=== PATIENT | female | born 1960 | race Caucasian/White ===

== ENCOUNTER → 2017-05-31 07:37 | Outpatient (CLI) | payer BC, SELFPAY ==
--- NOTE | 2017-05-31 06:41 | HPBI_ITS ---
MAMMOGRAPHY - BILATERAL SCREENING REASON FOR EXAM: Female, 57 years old. Routine annual screening examination. PERTINENT HISTORY: Non-contributory. TECHNIQUE: Digital bilateral breast lyudmila (3D mammographic acquisition) in the CC and MLO projections. 2-D mediolateral oblique (MLO) and craniocaudad (CC) views of both breasts were obtained. CAD: Full Field Digital Mammography with Computer Added Detection was performed. COMPARISON: Comparison is made with prior study dated May 15, 2016 and April 08, 2015. FINDINGS: Breast Composition: There are scattered areas of fibroglandular density. There are no dominant masses or suspicious calcifications. Stable bilateral benign-appearing axillary lymph nodes. No other significant abnormalities are identified. There has been no significant change since the prior study. HPBI/SCREENING MAMM (CAD), BILAT IMPRESSION: Stable bilateral screening mammogram. Yearly follow-up mammogram recommended. (A) ASSESSMENT CATEGORY: BIRADS Category 2: Benign. A letter regarding these results will be sent to the patient by the facility within 30 days. Approximately 10% of breast cancers are not detected by mammography. A normal mammogram should not delay biopsy of a clinically suspicious abnormality. [id number] Electronically Signed: Zafar Abernathy MD at 8:48 EST Tel [phone], Service support ,
== END ==
PROVIDERS: Family Provider Family Medicine; PCP Family Medicine; Visit Provider Obstetrics & Gynecology
DX: Z12.31 Encounter for screening mammogram for malignant neoplasm of breast (principal)
CPT/HCPCS: 77063; 77067

== ENCOUNTER → 2017-06-02 11:44 | Outpatient (CLI) | payer BC, SELFPAY ==
[2017-06-02 12:19] LABS: Hematocrit 40.7 % (37-47); Hemoglobin 12.3 g/dl (12.0-15.0); Mean Corp Hgb Conc 30.2 g/gl (32-36); Mean Corpuscular Hgb 23.1 pg (27.0-32.0); Mean Corpuscular Volume 76.5 fL (81-99); Mean Platelet Vol. 9.5 fl (6.2-12.0); Platelet Count 210 K/mm3 (150-450); RBC Distribution Width CV 16.1 % (11.6-14.6); RBC Distribution Width SD 44.7 fl (35.1-43.9); Red Blood Count 5.32 M/mm3 (4.2-5.4); White Blood Count 8.3 K/mm3 (4.4-11.0)
[2017-06-02 12:24] LABS: Scan Indicated on CBC? Y/N NO
[2017-06-02 12:34] LABS: Erythrocyte Sedimentation Rate 29 mm/hr (0-30)
== END ==
PROVIDERS: Family Provider Family Medicine; PCP Family Medicine; Visit Provider Internal Medicine Infectious Disease
DX: T84.59XA Infection and inflammatory reaction due to other internal joint prosthesis, initial encounter (principal)
CPT/HCPCS: 36415; 85027; 85652

== ENCOUNTER 2017-06-21 09:26 | Outpatient (RCR) | payer SELFPAY | END 2017-07-03 23:59 | LOC: NS 09:26 | PROVIDERS: Family Provider Family Medicine; PCP Family Medicine; Visit Provider Specialist | DX: Z68.42 Body mass index [BMI] 45.0-49.9, adult (principal); Z71.3 Dietary counseling and surveillance | CPT/HCPCS: 97802 ==

== ENCOUNTER → 2017-06-30 14:41 | Outpatient (CLI) | payer BC, SELFPAY ==
--- NOTE | 2017-06-30 14:49 | VDLE_ITS ---
Reason For Study: LEG PAIN RIGHT LEFT CFV is compressible, spontaneous, phasic, GSV is normal. competent and demonstrates normal CFV is compressible, spontaneous, phasic, augmentation. competent, and demonstrates normal Procedure augmentation. Exam performed in department. FV is compressible, spontaneous, phasic, A preliminary report was called and/or faxed competent and demonstrates normal to Dr. Ceballos. augmentation. POP V is compressible, spontaneous, phasic, competent and demonstrates normal augmentation. T/P Trunk is compressible. PTV is compressible. LT PerV is compressible. Thrombus filled varicose veins noted lt medial/anterior thigh. Interpretation Summary Deep veins of the left lower extremity are patent and compressible segmentally. There is no evidence of left lower extremity deep vein thrombosis. Valvular competence appears intact within the proximal deep venous system on the left . The left greater saphenous vein appears patent and compressible segmentally. Acute superficial thrombophlebitis is noted involving superficial varicosities in the left lukas-medial thigh. Ordering Physician: Fabiola Ndiaye Referring Physician: Gustavo Ceballos Performed By: Gricelda Roth RVT
== END ==
PROVIDERS: Family Provider Family Medicine; PCP Family Medicine
DX: I80.02 Phlebitis and thrombophlebitis of superficial vessels of left lower extremity (principal); M79.89 Other specified soft tissue disorders; M79.605 Pain in left leg; Z86.718 Personal history of other venous thrombosis and embolism
CPT/HCPCS: 93971

== ENCOUNTER 2017-07-20 09:00 | Outpatient (RCR) | payer BC, SELFPAY | END 2017-07-20 09:01 | LOC: NS 09:00 | PROVIDERS: Family Provider Family Medicine; PCP Family Medicine; Visit Provider Specialist | DX: Z68.42 Body mass index [BMI] 45.0-49.9, adult (principal); Z71.3 Dietary counseling and surveillance | CPT/HCPCS: 97803 ==

== ENCOUNTER → 2017-07-22 14:16 | Outpatient (CLI) | payer BC, SELFPAY ==
[2017-07-27 16:16] LABS: HPV Reflexed? NOT INDICATED
== END ==
PROVIDERS: Visit Provider Obstetrics & Gynecology
DX: Z12.4 Encounter for screening for malignant neoplasm of cervix (principal)
CPT/HCPCS: 88175; G0145

== ENCOUNTER → 2017-09-16 09:13 | Outpatient (CLI) | payer BC, SELFPAY ==
--- NOTE | 2017-09-16 09:30 | RAD_ITS ---
PROCEDURE: Steroid injection - LEFT HIP REASON FOR EXAM: Female, 57 years old. Hip pain FLUOROSCOPY TIME (if supplied): (0:09) seconds STERILE BARRIER TECHNIQUE: The following sterile barrier precautions were used during the procedure: hand hygiene; use of 2% chlorhexidine aseptic; use of a cap, mask, sterile gown, sterile gloves, sterile full body drape, and a large sterile sheet. PROCEDURE/TECHNIQUE: The risks, benefits, and alternatives to the procedure were explained to patient, and the patient agreed to the procedure and signed a consent form for the procedure. A timeout was performed to confirm the patient's identity, the type of procedure, to be performed and the site of entry. Injection Information: Mixture containing 1cc betamethasone and 3cc of 1 percent lidocaine. Number of images obtained: 1 TECHNIQUE: Under fluoroscopic guidance using sterile technique and after infiltration of the skin and subcutaneous soft tissues with 10 mL of lidocaine 1% a 22-gauge needle is introduced in the hip joint. 5 mL of air were injected in the hip joint to ensure needle position . The above mentioned mixture was injected in the hip joint. FINDINGS: The joint capsule is normal in size. There is no intra-articular loose bodies. There is no osteolytic lesions. RAD/Inj/Asp Benedict Jt Should/Hip/Knee IMPRESSION: Successful intra-articular steroid injection under fluoroscopic guidance. Electronically Signed: Alejandro Fontaine MD at 9:25 EDT Tel , Service support ,
== END ==
PROVIDERS: Family Provider Family Medicine; PCP Family Medicine; Visit Provider Specialist
DX: M16.12 Unilateral primary osteoarthritis, left hip (principal)
CPT/HCPCS: 20610; 77002; J0702

== ENCOUNTER → 2017-09-29 08:55 | Outpatient (CLI) | payer BC, SELFPAY ==
--- NOTE | 2017-09-29 08:57 | RAD_ITS ---
PROCEDURE: Fluoroscopic guided Hip Injection DATE: September 29, 2017. INDICATION: Female, 57 years old. Chronic hip pain. PHYSICIAN: Zafar Abernathy M.D. MEDICATIONS: 6 mg of betamethasone and 3 cc of 1% lidocaine. 2% Lidocaine administered subcutaneously for local anesthesia. ACCESS SITE: Right hip. NEEDLE: 22-gauge spinal needle. FLUOROSCOPY TIME (if supplied): (30 seconds) minutes/seconds FINDINGS: The risks, benefits, and alternatives to the procedure were explained to the patient. The specific risks of bleeding, infection, and neurovascular injury were detailed and accepted. Witnessed informed consent was obtained. A 22-gauge spinal needle was positioned under radiographic fluoroscopic localization. Approximately 2 cc of Isovue-300 instilled for localization purposes. Medication was then injected. The patient tolerated the procedure well without any immediate complications. The patient was placed supine with head elevated and returned to the floor in stable condition. RAD/Inj/Asp Benedict Jt Should/Hip/Knee IMPRESSION: 1. Successful fluoroscopic guided hip injection. Electronically Signed: Zafar Abernathy MD at 11:11 EDT Tel [phone], Service support ,
== END ==
PROVIDERS: Family Provider Family Medicine; PCP Family Medicine; Visit Provider Physician Assistant Surgical
DX: M16.0 Bilateral primary osteoarthritis of hip (principal); G89.29 Other chronic pain
CPT/HCPCS: 20610; 77002; Q9967; J0702

== ENCOUNTER → 2017-11-10 11:09 | Outpatient (CLI) | payer BC, SELFPAY ==
[2017-11-10 11:48] LABS: BUN 21 mg/dL (7-18); Creatinine, Serum 0.72 mg/dL (0.55-1.02); EST Glomerular Filtration Rate 88 mL/min (>60); Est Glom Filt Rate - Afr Amer 106 mL/min (>60)
== END ==
PROVIDERS: Family Provider Family Medicine; PCP Family Medicine
DX: M43.16 Spondylolisthesis, lumbar region (principal)
CPT/HCPCS: 36415; 82565; 84520

== ENCOUNTER → 2017-11-19 16:35 | Outpatient (CLI) | payer BC, SELFPAY | PROVIDERS: Family Provider Family Medicine; PCP Family Medicine | DX: M43.16 Spondylolisthesis, lumbar region (principal) | CPT/HCPCS: 72158; A9585 ==

== ENCOUNTER → 2017-12-29 09:18 | Outpatient (CLI) | payer BC, SELFPAY ==
[2017-12-29 10:23] LABS: Erythrocyte Sedimentation Rate 13 mm/hr (0-30)
[2017-12-29 10:28] LABS: Basophil# 0.05 X10^3/uL; Basophil% 0.6 % (0-1); Eosinophil# 0.24 X10^3/uL; Eosinophils% 3.1 % (0-5); Hematocrit 43.5 % (37-47); Hemoglobin 13.4 g/dl (12.0-15.0); Lymphocyte % 25.9 % (19-41); Mean Corp Hgb Conc 30.8 g/gl (32-36); Mean Corpuscular Hgb 24.6 pg (27.0-32.0); Mean Corpuscular Volume 79.8 fL (81-99); Mean Platelet Vol. 9.9 fl (6.2-12.0); Monocyte# 0.44 X10^3/uL; Monocyte% 5.7 % (0-10); Neutrophil # 4.97 X10^3/uL (2.7-7.7); Neutrophil % 64.4 % (47-70); Platelet Count 187 K/mm3 (150-450); RBC Distribution Width CV 17.9 % (11.6-14.6); RBC Distribution Width SD 51.3 fl (35.1-43.9); Red Blood Count 5.45 M/mm3 (4.2-5.4); White Blood Count 7.7 K/mm3 (4.4-11.0)
[2017-12-29 10:29] LABS: POSITIVE COUNT NO; POSITIVE DIFFERENTIAL NO; POSITIVE MORPHOLOGY NO
== END ==
PROVIDERS: Family Provider Family Medicine; PCP Family Medicine; Referring Provider Internal Medicine Infectious Disease; Visit Provider Internal Medicine Infectious Disease
DX: T84.59XA Infection and inflammatory reaction due to other internal joint prosthesis, initial encounter (principal)
CPT/HCPCS: 36415; 85025; 85652

== ENCOUNTER → 2018-01-31 09:05 | Outpatient (CLI) | payer BC, SELFPAY ==
--- NOTE | 2018-01-31 09:05 | MASS_PTH ---
PATIENT: RAJESH CARRENO LOC: CR U#:[id number] AGE/SX: 64/F ROOM: RE01/31/[address]: Dr. Garo Clement MD : 1960 BED: DIS: SPEC #: [id number] RECD: 01/31/18 15:14 STATUS: BERTO VIVIAN #: [id number] KASSI: 01/31/18 09:[address]: Garo Clement DEPT: SURGICAL PATHOLOGY RECD BY: Taya Schroeder ENTERED: 02/01/18 08:38 SP TYPE: Mass OTHR DR: Dr. Gustavo Ceballos MD [facility] Tissues: [place] of ear Procedures: Surgery Specimen Level IV HEADER OPERATION: Excision left ear mass PRE-OP DIAGNOSIS: Left ear mass TISSUE SUBMITTED: Left helical root MICROSCOPIC DIAGNOSIS Left ear mass, excision: A piece of skin with focal hyperkeratosis and underlying cartilage with reactive changes. Negative for malignancy. 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 Clinical correlation and appropriate follow up are necessary. Case has been reviewed in consultation with Dr. Waddell who concurs with the above diagnosis. IDC:AM MICROSCOPIC DESCRIPTION Slides are reviewed. GROSS DESCRIPTION Received is one container labeled with the patient's name and not further designated. The specimen consists of a piece of pond-white skin ellipse measuring 0.7 x 0.4 cm and up to 0.2 cm in thickness. The specimen is inked and submitted entirely in one cassette. It will be bisected at the time of embedding. / SJ:iva 01/31/18 TC:5 [facility]: [id number]
== END ==
PROVIDERS: Family Provider Family Medicine; PCP Family Medicine; Referring Provider Otolaryngology; Visit Provider Otolaryngology
DX: H93.8X2 Other specified disorders of left ear (principal)
CPT/HCPCS: 88305

== ENCOUNTER 2018-03-24 05:31 | Day surgery (SDC) | payer BC, SELFPAY ==
[2018-03-24 06:18] VITALS: BP 133/93; PULSE 72; RESP 18; TEMP 37.1; O2SAT 96; BMI 46.4
[2018-03-24] MEDS: Triamcinolone Acetonide 40 MG/ML Vial (07:45)
[2018-03-24] MEDS: Bupivacaine 0.5% PF 10 ML VIAL (07:45)
--- NOTE | 2018-03-24 07:52 | PCM.IMDPSTOP ---
Immediate Post-Op Note Date of Procedure: 03/24/18 Primary Surgeon/Physician: Scott Roach DPM supervisor ship maintenance services: none Pre-Operative Diagnosis: arthritis of b/l midfoot Post-Operative Diagnosis: arthritis of b/l midfoot Surgery/Procedure Performed:: xray guided injection, b/l tarsal metatarsa joint Description of Surgical Findings:: consistent with arthritis of midfoot Estimated Blood Loss: none Specimen's removed: none Type of Anesthesia:: General ASA Class: ASA3 Severe Disease
[2018-03-24 07:58] VITALS: BP 133/93; BP 96/54; PULSE 92; RESP 14; TEMP 36.2; O2SAT 94
[2018-03-24 08:00] VITALS: BP 129/60; BP 133/93; PULSE 77; RESP 16; O2SAT 91
[2018-03-24 08:10] VITALS: BP 128/70; BP 133/93; PULSE 92; RESP 16; TEMP 36.3; O2SAT 92
[2018-03-24 09:19] VITALS: BP 112/68; BP 133/93; PULSE 88; RESP 18; TEMP 36.8; O2SAT 92
--- NOTE | 2018-03-26 07:12 | PCM.OPRPT ---
Report of Operation Date of Procedure: 03/24/18 Pre-Operative Diagnosis: arthritis of b/l midfoot Post-Operative Diagnosis: arthritis of b/l midfoot Surgery/Procedure Performed:: xray guided injection, b/l tarsal metatarsa joint Description of Surgical Findings:: b/l midfoot arthritis with successful xray guided injection b/l. outsole cementer: none Type of Anesthesia:: General Specimen's removed: none Estimated Blood Loss (mL): none Description of Procedure: Patient is a 57 year old female who suffers from chronic pain of b/l midfoot. she has tried inserts and otc pain medication but still has pain primarily across the tarsal metatarsal joint of both feet. I have examined her in my clinic and I have discussed injection of b/l midfoot under xray guidance. I have discussed risks of procedure not limited to infection, pain, swelling, bleeding, elevation of blood glucose, failed reduction of pain, need for subsequent injection or even further, midfoot arthrodesis. I have discussed possible risk of worsening of her pain post injection. patient understands all risks and she consents to proceed. Patient was transferred from pre-op holding area and initially placed under monitored anesthesia care. due to this patient having restless leg syndrome, I felt it would be difficult to get her to relax fully to allow injection so the anesthesia department converted her to general. the b/l lower extremity was prepped and draped in the usual aseptic technique. a timeout was performed making note of procedure and personal involved. using intra-op c-arm, the right tarsal metatarsal joint was located and a sterile injection of 0.5 cc of dexamethasone, 0.5 cc of kenalog and 0.5 cc of 0.5%marcaine plain was successfully administered across the midfoot. Attention was then directed to the left foot. The Left tarsal metatarsal joint was located and a sterile injection of 0.5 cc of dexamethasone, 0.5 cc of kenalog and 0.5 cc of 0.5%marcaine plain was successfully administered across the midfoot. band aids were then applied to b/l foot. patient was successfully awakened and transferred to pacu in stable condition. she will f/u in my clinic in one month. she will continue to use inserts.
--- NOTE | 2018-03-26 07:17 | OP.PCM_ITS ---
Report of Operation Date of Procedure: 03/24/18 Pre-Operative Diagnosis: arthritis of b/l midfoot Post-Operative Diagnosis: arthritis of b/l midfoot Surgery/Procedure Performed:: xray guided injection, b/l tarsal metatarsa joint Description of Surgical Findings:: b/l midfoot arthritis with successful xray guided injection b/l. manager corporate strategy: none Type of Anesthesia:: General Specimen's removed: none Estimated Blood Loss (mL): none Description of Procedure: Patient is a 57 year old female who suffers from chronic pain of b/l midfoot. she has tried inserts and otc pain medication but still has pain primarily across the tarsal metatarsal joint of both feet. I have examined her in my clinic and I have discussed injection of b/l midfoot under xray guidance. I have discussed risks of procedure not limited to infection, pain, swelling, bleeding, elevation of blood glucose, failed reduction of pain, need for talbot bsequent injection or even further, midfoot arthrodesis. I have discussed possible risk of worsening of her pain post injection. patient understands all risks and she consents to proceed. Patient was transferred from pre-op holding area and initially placed under monitored anesthesia care. due to this patient having restless leg syndrome, I felt it would be difficult to get her to relax fully to allow injection so the anesthesia department converted her to general. the b/l lower extremity was prepped and draped in the usual aseptic technique. a timeout was performed making note of procedure and personal involved. using intra-op c-arm, the right tarsal metatarsal joint was located and a sterile injection of 0.5 cc of dexamethasone, 0.5 cc of kenalog and 0.5 cc of 0.5%marcaine plain was successfully administered across the midfoot. Attention was then directed to the left foot. The Left tarsal metatarsal joint was located and a sterile injection of 0.5 cc of dexamethasone, 0.5 cc of kenalog and 0.5 cc of 0.5%marcaine plain was successfully administered across the midfoot. band aids were then applied to b/l foot. patient was successfully awakened and transferred to pacu in stable condition. she will f/u in my clinic in one month. she will continue to use inserts.
== END 2018-03-24 09:20 | disposition home or self-care (01) ==
LOC: SDC 05:32 → AC 05:33
PROVIDERS: Family Provider Family Medicine; PCP Family Medicine; Referring Provider Podiatrist Foot & Ankle Surgery; Visit Provider Podiatrist Foot & Ankle Surgery
PROC: (CPT 20605; principal; 2018-03-24 07:00)
DX: M19.072 Primary osteoarthritis, left ankle and foot (principal); M19.071 Primary osteoarthritis, right ankle and foot; M06.9 Rheumatoid arthritis, unspecified; E11.9 Type 2 diabetes mellitus without complications; K21.9 Gastro-esophageal reflux disease without esophagitis; E06.9 Thyroiditis, unspecified; G47.30 Sleep apnea, unspecified; G25.81 Restless legs syndrome; Z86.718 Personal history of other venous thrombosis and embolism; Z87.442 Personal history of urinary calculi; Z79.82 Long term (current) use of aspirin; Z79.899 Other long term (current) drug therapy; Z87.891 Personal history of nicotine dependence
CPT/HCPCS: 20600; 76000; J7120; J2405

== ENCOUNTER → 2018-06-22 07:17 | Outpatient (CLI) | payer BC, SELFPAY ==
--- NOTE | 2018-06-22 07:19 | BI_ITS ---
MAMMOGRAPHY - BILATERAL SCREENING 3-D WILLIAM SYNTHESIS REASON FOR EXAM: Female, 58 years old. Bilateral Screening 3-D tomosynthesis PERTINENT HISTORY: No significant family history. TECHNIQUE: 2-D mammograms and 3-D William synthesis of the breast (s) were performed. CAD was performed. COMPARISON: None. FINDINGS: The breast composition is almost entirely fat. Scattered benign calcifications are stable. There are stable normal-appearing lymph nodes in both axillae. No dense spiculated masses or suspicious microcalcifications are identified. No architectural distortion is identified. There is no skin thickening or retraction. There has been no significant change since the prior study. BI/SCREENING MAMM (CAD), BILAT IMPRESSION: No mammographic signs of malignancy. Routine yearly mammograms recommended. ASSESSMENT CATEGORY: BIRADS Category 2: Benign. A letter regarding these results will be sent to the patient by the facility within 30 days. FOLLOW UP RECOMMENDATION: Yearly follow up mammogram recommended. (A) Approximately 10% of breast cancers are not detected by mammography. A normal mammogram should not delay biopsy of a clinically suspicious abnormality. Electronically Signed: Zen Tamez MD at 12:46 EDT , Service support ,
== END ==
PROVIDERS: Family Provider Family Medicine; PCP Family Medicine; Referring Provider Obstetrics & Gynecology; Visit Provider Obstetrics & Gynecology
DX: Z12.31 Encounter for screening mammogram for malignant neoplasm of breast (principal)
CPT/HCPCS: 77063; 77067

== ENCOUNTER → 2018-07-20 | Outpatient (CLI) | payer BC, SELFPAY ==
--- NOTE | 2018-07-20 10:53 | VDLE_ITS ---
Reason For Study: LEG PAIN RIGHT LEFT CFV is compressible, spontaneous, phasic, GSV is normal. competent and demonstrates normal CFV is compressible, spontaneous, phasic, augmentation. competent, and demonstrates normal Procedure augmentation. Exam performed in department. FV is compressible, spontaneous, phasic, A preliminary report was called and/or faxed competent and demonstrates normal to Dr. Bobo. augmentation. POP V is compressible, spontaneous, phasic, competent and demonstrates normal augmentation. T/P Trunk is compressible. PTV is compressible. LT PerV is compressible. Interpretation Summary Deep veins of the left lower extremity are patent and compressible segmentally. There is no evidence of left lower extremity deep vein thrombosis. Valvular competence appears intact within the proximal deep venous system on the left . The left greater saphenous vein appears patent and compressible segmentally. Ordering Physician: Benny Bobo Referring Physician: Gustavo Ceballos Performed By: Gricelda Roth RVT
== END | disposition home or self-care (01) ==
LOC: CVS 10:52
PROVIDERS: Family Provider Family Medicine; PCP Family Medicine; Referring Provider Orthopaedic Surgery; Visit Provider Orthopaedic Surgery
DX: M79.605 Pain in left leg (principal)
CPT/HCPCS: 93971

== ENCOUNTER → 2018-07-28 | Outpatient (CLI) | payer BC, SELFPAY ==
[2018-08-03 08:55] LABS: HPV Reflexed? NOT INDICATED
== END | disposition home or self-care (01) ==
LOC: WOBLAB 13:47
PROVIDERS: Family Provider Family Medicine; PCP Family Medicine; Visit Provider Obstetrics & Gynecology
DX: Z12.4 Encounter for screening for malignant neoplasm of cervix (principal)
CPT/HCPCS: 88175; G0145

== ENCOUNTER 2018-08-01 06:31 | Observation (INO) | payer BC, SELFPAY ==
[2018-08-01] VITALS (11 sets, daily range): BP systolic 114–146; BP diastolic 55–85; PULSE 66–81; RESP 14–19; TEMP 36.6–36.7; O2SAT 95–98; BMI 47.9; BMI 48.0
--- NOTE | 2018-08-01 07:09 | RAD_ITS ---
STUDY: X-RAY CHEST REASON FOR EXAM: Female, 58 years old. Sudden onset of chest pain and shortness of breath. TECHNIQUE: Single AP portable view of the chest. COMPARISON: Comparison is made with prior study dated December 13, 2016. FINDINGS: The lungs are clear and expanded. Scattered calcified granulomas. There is no demonstrated pleural abnormality. Normal size heart. Normal mediastinum and christel. Normal visualized pulmonary arteries. Normal visualized aortic arch and descending thoracic aorta. Normal visualized thoracic spine. Normal visualized ribs, clavicles, and shoulders. There is no demonstrated abnormality of the visualized soft tissue structures of the upper abdomen. RAD/Chest 1 View (Portable) IMPRESSION: Normal x-ray examination of the chest. Electronically Signed: Zafar Abernathy, at 8:51 EDT , Service support ,
--- NOTE | 2018-08-01 07:09 | EKG12_ITS ---
Test Reason : CP Blood Pressure : / mmHG Vent. Rate : 080 BPM Atrial Rate : 080 BPM P-R Int : 174 ms QRS Dur : 094 ms QT Int : 414 ms P-R-T Axes : 059 012 034 degrees QTc Int : 477 ms Normal sinus rhythm Low voltage QRS Borderline ECG Confirmed by TRAE BERMAN, CONG ([id number]), map editor MOHAMUD NICOLE ([id number]) on 08/02/2018 11:21:57 AM Referred By: PIETER Confirmed By:CONG LARKIN MD
[2018-08-01 07:29] LABS: Absolute Lymphocyte Count 2.24 X10^3/ul (0.83-4.51); Absolute Neutrophil Count 4.4 X10^3/uL (2.0-7.7); Basophil# 0.08 X10^3/uL; Eosinophil# 0.33 X10^3/uL; Eosinophils% 4.3 % (0-5); Hemoglobin 14.2 g/dl (12.0-15.0); Lymphocyte # 2.24 X10^3/ul (4.0); Lymphocyte % 29.1 % (19-41); Mean Corp Hgb Conc 32.3 g/gl (32-36); Mean Corpuscular Hgb 26.6 pg (27.0-32.0); Mean Corpuscular Volume 82.4 fL (81-99); Mean Platelet Vol. 10.4 fl (6.2-12.0); Monocyte% 7.8 % (0-10); Neutrophil # 4.43 X10^3/uL (2.7-7.7); Neutrophil % 57.7 % (47-70); Platelet Count 192 K/mm3 (150-450); RBC Distribution Width CV 16.3 % (11.6-14.6); Red Blood Count 5.34 M/mm3 (4.2-5.4); White Blood Count 7.7 K/mm3 (4.4-11.0)
[2018-08-01] MEDS: 0.9% Normal Saline 1,000 ML 150 ML IV (07:29)
[2018-08-01 07:30] LABS: POSITIVE COUNT NO; POSITIVE DIFFERENTIAL NO; POSITIVE MORPHOLOGY NO
[2018-08-01 07:31] LABS: D-Dimer Quantitative (DVT/PE) 0.73 FEU/ug/m (0.27-0.49)
--- NOTE | 2018-08-01 07:32 | CT_ITS ---
STUDY: CTA CHEST REASON FOR EXAM: Female, 58 years old. Chest pain. Elevated d-dimer levels. COPD. RADIATION DOSAGE (If Supplied By Facility): CTDIvol = ( 15.04 ) mGy, DLP = ( 434.98 ) mGycm TECHNIQUE: The examination was performed with the intravenous administration of 100CC IV Isovue 370. Post-processing of the angiographic images was performed, with multiplanar reformation and 3D reconstruction. Individualized dose optimization techniques were used for this CT. COMPARISON: Comparison is made with prior study dated June 08, 2011. FINDINGS: Small benign-appearing bilateral axillary lymph nodes. Normal enhancement of the main pulmonary artery and right and left pulmonary arteries. Normal enhancement of the bilateral peripheral pulmonary arteries. There is no demonstrated pulmonary embolism. Normal thoracic aorta and visualized great vessels. There is no demonstrated aortic dissection. Normal heart and pericardium. Normal mediastinum. Normal hilar regions. Normal visualized trachea and bronchi. The lungs are well expanded. Minimal degree of bibasilar linear atelectasis. Normal pleura. Normal chest wall structures. There are degenerative changes of thoracic spine. Increased kyphosis. Stable 1.4 cm x 1 cm cyst in the lateral aspect of the right lobe of the liver. CT/CTA Chest W/WO Contrast IMPRESSION: Normal CTA chest examination, without a demonstrated pulmonary embolism or arterial dissection. Mild degree of bibasilar atelectasis. Electronically Signed: Zafar Abernathy, at 9:30 EDT , Service support ,
[2018-08-01 07:42] LABS: Anion Gap 7 (5-15); BUN 18 mg/dL (7-18); Calcium,Total 8.8 mg/dL (8.5-10.1); Chloride 110 mmol/L (98-107); Creatinine, Serum 0.86 mg/dL (0.55-1.02); EST Glomerular Filtration Rate 72 mL/min (>60); Est Glom Filt Rate - Afr Amer 87 mL/min (>60); Estimated Creatinine Clearance 61.57 ml/min; Glucose 122 mg/dL (74-106); Potassium 3.9 mmol/L (3.5-5.1); Sodium Level 143 mmol/L (136-145)
--- NOTE | 2018-08-01 09:39 | ED.VISSUMM ---
- ER Visit Summary Date of Service: 08/01/18 Chief Complaint: [Chest pain] History of Present Illness: The patient is a 58 F [presents the emergency department chest discomfort that started around 5:45 AM. Patient states that she was getting dressed when she developed a sudden discomfort in the center of her chest and left chest that she described as a squeezing or tightness. Patient felt short of breath with it. Patient now states that it also felt like a throbbing ache. Patient did not have any radiation of the discomfort. She had no nausea or vomiting or diaphoresis. Patient states symptoms lasted about 45 minutes and are currently resolved. Patient is never had discomfort like that before. Patient states that she think she had a stress test in December 2017 that was unremarkable. She is never had any agnostic cardiac disease. Patient does have a significant family history of heart disease and that her father at age 54 of an ID and she is had a brother whose had an ID in his 30s.] Physical Examination: [HEENT-PERRLA, EOMI. Cranial nerves II through XII grossly intact. TMs clear. Mucous membranes moist. No adenopathy. Cardiovascular-regular rate and rhythm without murmur or ectopy Lungs-clear to auscultation, chest wall stable without crepitus or subcu emphysema Abdomen-normoactive bowel sounds, soft, nontender, no rebound or rigidity, no peritoneal signs. Extremities-intact ?4, normal range of motion, normal pulses, atraumatic] Test Results: [EKG obtained arrival shows sinus rhythm with a ventricular rate of 80 bpm with no acute I segment changes. CBC with it was normal. Chemistries unremarkable. Troponin is less than 0.015. Dimer was 0.73. CTA of the chest showed no PE or dissection.] Emergency Department Course and Treatment: [Patient had an IV established and was given normal saline. Patient had received aspirin by EMS.] Treatment Plan: [Admit for further work-up and evaluation of chest pain] Disposition: [Admit] Impression: [Chest pain-rule out acute coronary syndrome] This note was generated with [employer] dictation software. It may contain incorrect words, spelling, and punctuation that were not noted in review of the chart prior to signing ED Disposition - Plan for ED Patient: Referrals: Gustavo Ceballos MD [Primary Care Provider] -
--- NOTE | 2018-08-01 09:48 | NURSING ---
PCU OBS ATTILA RIVERA
--- NOTE | 2018-08-01 09:59 | NURSING ---
[id number] PCU OVERFLOW
[2018-08-01] MEDS: CLARIFY ORDER NOTE ×2 (11:32→11:33)
[2018-08-01] MEDS: Lisinopril 10 MG Tablet PO (12:01)
[2018-08-01] MEDS: Pantoprazole Sodium 20 MG Tablet PO (12:01)
[2018-08-01] MEDS: Gabapentin 600 MG Tablet PO ×2 (12:02→18:38)
[2018-08-01] MEDS: Levothyroxine 175 MCG Tablet PO (12:02)
[2018-08-01] MEDS: 0.9% NaCl Peripheral Flush Adult/Peds IV (13:30)
[2018-08-01] MEDS: Pramipexole Di-HCl 0.5 MG Tablet 1.5 MG PO (13:44)
--- NOTE | 2018-08-01 14:42 | CHAPLAIN ---
Type of Pastoral Visit _x__ Initial Visit ___ Follow-up Visit ___ On-call Visit ___ General Patient Visit ___ Spiritual Assessment ___ Family Conference ___ Bereavement ___ Rapid Response ___ Code Blue ___ Other (describe below) Pastoral Care Referral From _x__ Patient ___ Family ___ Nurse ___ Physician ___ Automatic Splicing Machine Operator ___ Licensed Audiologist ___ Other (describe below) Sacrament/Intervention _x__ Active listening ___ Anointing ___ Pentecostal ___ Bereavement ___ Communion _x__ Altagracia exploration ___ ___ Life review _x__ Prayer ___ Reconciliation ___ Sacrament of Sick ___ Supportive presence ___ Wedding ___ Other (describe below) Pastoral Comments
--- NOTE | 2018-08-01 16:08 | HP.PCM_ITS ---
Problem List (1) Chest pain Status: Acute Qualifiers: Chest pain type: unspecified Qualified Code(s): R07.9 - Chest pain, unspecified History of Present Illness Date of Admission: 08/01/18 Chief Complaint: chest pain The patient is a 58 year old F [place] with midsternal chest pain. Patient was up this morning and was sitting and then had midsternal chest pain. Patient does get this intermittently but lasts for about a minute or less but usually goes away with deep respirations but this time he did not. Lasted around 30 to 45 minutes. It was not associated with any radiation or any other subjective symptoms. Patient presented to the emergency room and underwent a work-up which was thus far unremarkable. Patient's father early of coronary artery disease. 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 Restless leg (Chronic) RENNY (obstructive sleep apnea) (Chronic) Hypothyroidism (Chronic) Diverticulosis of colon without diverticulitis (Chronic) Depression (Chronic) Postphlebitic syndrome with inflammation (Chronic) Lumbar disc disease (Chronic) History of Graves' disease (Chronic) Diabetes mellitus (Chronic) Renal insufficiency (Chronic) Presence of IVC filter (Chronic) Obesity (Chronic) Edema leg (Chronic) Leg swelling (Chronic) DVT of lower extremity (deep venous thrombosis) (Chronic) Allergies hydrocodone bitartrate [From Lortab] Allergy (Intermediate, Verified 03/21/18 09:52) Other lips swell, ataxia etodolac Allergy (Verified 03/21/18 09:52) Unknown misoprostol Allergy (Verified 03/21/18 09:52) Unknown celecoxib Adverse Reaction (Intermediate, Verified 03/21/18 09:52) Other heart palpitations diclofenac [Diclofenac] Adverse Reaction (Mild, Verified 03/21/18 09:52) Abd cramps/diarrhea ketorolac tromethamine [From Toradol] Adverse Reaction (Mild, Verified 03/21/18 09:52) Other balance issues metoclopramide HCl [From Reglan] Adverse Reaction (Mild, Verified 03/21/18 09:52) Other worsens restless leg atorvastatin [From Lipitor] Adverse Reaction (Verified 03/21/18 09:52) Other FACE SPASMS clindamycin Adverse Reaction (Verified 03/21/18 09:52) Mucosal lesions Home Medications: Ambulatory Orders Medication Instructions Recorded Levothyroxine [Synthroid] 175 mcg PO DAILY 09/01/13 Ranitidine [Zantac] 300 mg PO DAILY 05/17/14 Omeprazole [Prilosec] 20 mg PO DAILY 12/13/16 Cholecalciferol (Vitamin D3) 5,000 unit PO DAILY 01/25/17 [Vitamin D3] Aspirin E.C. [Ecotrin] 81 mg PO DAILY@0800 03/21/18 [place]-3 Fatty Acids/Fish Oil [Fish 1,000 mg PO DAILY 03/21/18 Oil 1,000 mg Capsule] Gabapentin 1,200 mg PO QHS 08/01/18 Gabapentin [Neurontin] 600 mg PO TIDCM 08/01/18 Hydroxychloroquine [Plaquenil] 200 mg PO BIDCM 08/01/18 Lisinopril [Zestril] 10 mg PO DAILY 08/01/18 Pramipexole Di-HCl [Pramipexole 1 tab PO DAILY 08/01/18 Dihydrochloride] Pramipexole Di-HCl [Pramipexole 2 tab PO QHS 08/01/18 Dihydrochloride] Venlafaxine HCl [Effexor Xr] 1 tab PO DAILY 08/01/18 Venlafaxine HCl [Venlafaxine HCl 1 tab PO DAILY 08/01/18 ER] Surgical History: appendectomy, cholecystectomy, total knee arthroplasty - R total knee prior, tonsillectomy, - - BL thumb surgery. The patient is undergone bilateral total knee replacement surgery. She is undergone cholecystectomy, and subsequently required incisional hernia repair. Lumbar disc surgery was performed early November 2016. The patient is undergone endothermal ablation of superficial veins in the left lower extremity. An IVC filter was placed approximately 5 years ago, and remains in place. The patient is a Ab0. Smoking Status: Former smoker Tobacco Use: Non-smoker - *Family History Maternal History Items: Heart Disease, Hypertension Paternal History Items: Heart Disease, Hypertension Sibling History Items: Cancer, Diabetes, Hypertension, - Review of Systems Constitutional: Denies: Anorexia, Chills, Fever Eyes: Denies: Blurred vision, Double vision HEENT: Denies: Head Aches, Sinus Congestion, Sinus Drainage Cardiovascular: Reports: Chest Pain. Denies: Edema Respiratory: Denies: Cough, Shortness of breath at rest, Sputum production Gastrointestinal: Denies: Abdominal Pain, Nausea, Vomiting Genitourinary: Denies: Dysuria Musculoskeletal: Denies: Joint Pain, Joint Tenderness Skin: Denies: Rash, Wounds Neurological: Denies: Numbness, Tingling, Focal weakness Psychiatric: Reports: Depression. Denies: Anxiety Hematologic/ Lymphatic: Reports: Hx of blood clot. Denies: Easy Bruising, Easy Bleeding Comment: A 10 point review of systems were negative except as mentioned in the history of present illness and the other review of systems. VTE Information - Inpt Only VTE Present on Admission: No VTE Mechan Device Prophylaxis: None VTE Pharm Prophylaxis ordered?: No Reason prophylaxis not ordered:: Procedure Not Indicated Patient Problems: Active and Suspected Problems Chest pain (Acute) - Physical Exam General: Alert, Cooperative, No apparent distress HEENT: Atraumatic, Normocephalic Oral: Moist Mucosa, No Gingival or Mucosal Lesions/ Ulcerations Neck: No Nodes, Thyroid Normal Size and Texture Lungs: Clear to auscultation, Normal air movement, No rhonchi, No wheeze, No rales Cardiovascular: Regular rate, Regular Rhythm, Normal S1, Normal S2 Abdomen: Bowel Sounds Present, Soft, Non Tender, Non-Distended, No Hepato- splenomegaly, Passing Flatus Extremities: No edema, No Calf Tenderness Skin: No rashes, No breakdown Psych/Mental Status: Normal Affect Vital Signs Temp Pulse Resp BP Pulse Ox 36.6 C 71 16 141/85 H 96 08/01/18 11:00 08/01/18 11:00 08/01/18 11:00 08/01/18 11:00 08/01/18 11:00 Oxygen Delivery Method Room Air Weight: 126.8 kg Body Mass Index (BMI) 47.9 Finger Stick Blood Glucose 139 Laboratory Tests Past 24 Hrs 08/01/18 08/01/18 08/01/18 06:45 06:45 06:45 WBC 7.7 RBC 5.34 Hgb 14.2 Hct 44.0 MCV 82.4 MCH 26.6 L MCHC 32.3 RDW 16.3 H RDW Differential 49.0 H Plt Count 192 MPV 10.4 Immature Gran % (Auto) 0.100 Neut % (Auto) 57.7 Lymph % (Auto) 29.1 [place] % (Auto) 7.8 Eos % (Auto) 4.3 Baso % (Auto) 1.0 Absolute Neuts (auto) 4.4 Absolute Lymphs (auto) 2.24 Total Counted Not Reportable D-Dimer Quant (PE/DVT) 0.73 H* Sodium 143 Potassium 3.9 Chloride 110 H Carbon Dioxide 26.0 Anion Gap 7 BUN 18 Creatinine 0.86 Estim Creat Clear Calc 61.57 Est GFR (MDRD) Af Amer 87 Est GFR (MDRD) Non-Af 72 BUN/Creatinine Ratio 21.0 H Glucose 122 H Calcium 8.8 Troponin I < 0.015 08/01/18 12:05 WBC RBC Hgb Hct MCV MCH MCHC RDW RDW Differential Plt Count MPV Immature Gran % (Auto) Neut % (Auto) Lymph % (Auto) [place] % (Auto) Eos % (Auto) Baso % (Auto) Absolute Neuts (auto) Absolute Lymphs (auto) Total Counted D-Dimer Quant (PE/DVT) Sodium Potassium Chloride Carbon Dioxide Anion Gap BUN Creatinine Estim Creat Clear Calc Est GFR (MDRD) Af Amer Est GFR (MDRD) Non-Af BUN/Creatinine Ratio Glucose Calcium Troponin I < 0.015 Assessment/Plan All Active Problems Chest pain (Acute) Superficial thrombophlebitis (Acute) 1. Chest pain * Heart score 3, SOL 1 * plan is to follow serial enzymes and check stress test 2. VTE prophylaxis--not indicated at this time as she is observation status Code Visit OBSV E&M: 20105 Initial observation care L2
[2018-08-01] MEDS: Hydroxychloroquine 200 MG Tablet PO (18:38)
[2018-08-01] MEDS: Pramipexole Di-HCl 1 MG Tablet 3 MG PO (21:18)
[2018-08-01] MEDS: Venlafaxine XR 75 MG Capsule PO (21:19)
[2018-08-01] MEDS: Gabapentin 600 MG Tablet 1200 MG PO (21:19)
[2018-08-01] MEDS: Venlafaxine XR 150 MG Capsule PO (21:19)
[2018-08-02] MEDS: Acetaminophen 325 MG Tablet 650 MG PO (00:10)
[2018-08-02 03:02] VITALS: PULSE 62
[2018-08-02 03:21] VITALS: BP 138/88; PULSE 78; RESP 16; TEMP 36.6; O2SAT 96
[2018-08-02 04:30] LABS: Hematocrit 45.1 % (37-47); Hemoglobin 14.2 g/dl (12.0-15.0); Mean Corp Hgb Conc 31.5 g/gl (32-36); Mean Corpuscular Hgb 25.7 pg (27.0-32.0); Mean Corpuscular Volume 81.7 fL (81-99); RBC Distribution Width CV 16.6 % (11.6-14.6); RBC Distribution Width SD 49.8 fl (35.1-43.9); Red Blood Count 5.52 M/mm3 (4.2-5.4); White Blood Count 7.1 K/mm3 (4.4-11.0)
[2018-08-02 04:31] LABS: Absolute Neutrophil Count 4.4 X10^3/uL (2.0-7.7); Basophil# 0.07 X10^3/uL; Eosinophil# 0.29 X10^3/uL; Eosinophils% 4.1 % (0-5); Lymphocyte % 25.4 % (19-41); Mean Platelet Vol. 10.2 fl (6.2-12.0); Monocyte# 0.57 X10^3/uL; Neutrophil # 4.36 X10^3/uL (2.7-7.7); Neutrophil % 61.4 % (47-70); Platelet Count 186 K/mm3 (150-450)
[2018-08-02 04:33] LABS: POSITIVE COUNT NO; POSITIVE DIFFERENTIAL NO; POSITIVE MORPHOLOGY NO
[2018-08-02 04:42] LABS: Anion Gap 6 (5-15); BUN 14 mg/dL (7-18); Calcium,Total 7.7 mg/dL (8.5-10.1); Chloride 112 mmol/L (98-107); EST Glomerular Filtration Rate 91 mL/min (>60); Est Glom Filt Rate - Afr Amer 110 mL/min (>60); Estimated Creatinine Clearance 75.65 ml/min; Glucose 93 mg/dL (74-106); Potassium 3.7 mmol/L (3.5-5.1); Sodium Level 144 mmol/L (136-145)
[2018-08-02 04:44] LABS: International Normalized Ratio 1.1; Partial Thromboplast Time 29.5 Seconds (24.1-36.2); Prothrombin Time (Protime)PT. 13.8 SECONDS (11.7-14.9)
--- NOTE | 2018-08-02 05:55 | EKG12_ITS ---
Test Reason : AM EKG Blood Pressure : / mmHG Vent. Rate : 065 BPM Atrial Rate : 065 BPM P-R Int : 184 ms QRS Dur : 092 ms QT Int : 426 ms P-R-T Axes : 038 003 020 degrees QTc Int : 443 ms Normal sinus rhythm Normal ECG When compared with ECG of 26-JAN-2017 05:56, No significant change was found Confirmed by FATOUMATA HUERTA ([id number]), rewrite editor ROCÍO LOPEZ ([id number]) on 08/08/2018 2:27:30 PM Referred By: NICOLE Confirmed By:ISABELL HUERTA
[2018-08-02] MEDS: Levothyroxine 175 MCG Tablet PO (06:24)
[2018-08-02] MEDS: 0.9% NaCl Peripheral Flush Adult/Peds IV (06:24)
[2018-08-02] MEDS: Lisinopril 10 MG Tablet PO (06:24)
[2018-08-02] MEDS: Aspirin E.C. 81 MG Tablet PO (06:24)
[2018-08-02 06:27] VITALS: BP 141/65; PULSE 65; RESP 18; TEMP 36.6; O2SAT 97
[2018-08-02 08:00] VITALS: PULSE 65
[2018-08-02] MEDS: Gabapentin 600 MG Tablet PO (10:08)
[2018-08-02] MEDS: Pantoprazole Sodium 20 MG Tablet PO (10:09)
[2018-08-02] MEDS: Pramipexole Di-HCl 0.5 MG Tablet 1.5 MG PO (10:09)
[2018-08-02] MEDS: Hydroxychloroquine 200 MG Tablet PO (10:10)
--- NOTE | 2018-08-02 10:22 | STRESSREP_ITS ---
Stress Test Report Date: 08-02-18 Procedure: Exercise tolerance test/imaging study Indications: Chest pain Consent: Per the patient Procedure: The patient exercised on a Earl protocol for 6 minutes and 15 seconds completing Stage II and 15 seconds of Stage III achieving a peak heart rate of 136 bpm (83 % predicted maximal heart rate) with a peak blood pressure 174/100 mmHg and a peak MET capacity of 7 METs. The baseline ECG demonstrated normal sinus rhythm. The peak exercise ECG demonstrated somatic/motion artifact with no obvious ECG changes. There was a rare PVC during exercise. The functional capacity was considered average. There was no complaint of chest discomfort during exercise or recovery. The examination was discontinued secondary to dyspnea. Impression: 1. Technically adequate (percent predicted maximal heart rate greater than 85%) exercise tolerance test 2. Peak exercise ECG with somatic/motion artifact with no obvious ECG changes 3. There was a rare PVC during exercise 4. Nuclear images pending Myocardial perfusion imaging study: Technique: The patient was injected with 14.6 mCi of technetium 99m Cardiolite and subsequently rest SPECT Cardiolite nuclear imaging was obtained in the horizontal long, vertical long, and short axis views. The patient exercised on a Earl protocol for 6 minutes and 15 seconds completing Stage II and 15 seconds of Stage III achieving a peak heart rate of 136 bpm (83 % predicted maximal heart rate) with a peak blood pressure 174/100 mmHg and a peak MET capacity of 7 METs. The patient was injected with 44.8 mCi of technetium 99m Cardiolite and subsequently stress SPECT Cardiolite nuclear imaging was obtained in the horizontal long, vertical long, and short axis views. A gated Cardiolite study at peak stress was obtained. Interpretation: Rest and stress SPECT Cardiolite nuclear imaging status post realignment, normalization, and attenuation correction, demonstrates the appearance at rest of an area of subtle decreased tracer uptake in portions of the distal anteroseptal/anterior/septal apical/anterior apical segments which status post stress appears to improved/normalized. Status post stress there appears to be relative uniform tracer uptake and myocardial perfusion appearing within normal limits.. There is end systolic thickening and brightening. The gated Cardiolite study demonstrates myocardial thickening and inward wall motion. The reported LVEF is 75 %. Impression: 1. Rest and stress SPECT Cardiolite nuclear imaging demonstrate the appearance of myocardial perfusion changes at rest which appear to improve/normalize following stress appearing compatible with shifting soft tissue attenuation/artifact with no myocardial perfusion changes considered diagnostic for associated stress-induced myocardial ischemia or previous myocardial injury/infarction. 2. The gated Cardiolite study reports an LVEF of 75 %. This note was generated with [employer]antage[employer] software. It may contain incorrect words, spelling, and punctuation that were not noted in checking the note before signing.
[2018-08-02 11:11] VITALS: BP 130/57; PULSE 79; RESP 16; TEMP 36.9; O2SAT 95
--- NOTE | 2018-08-02 11:41 | DCINST_ITS ---
- Discharge Diagnoses Current Active Problems: Current Active and Chronic Problems Chest pain (Acute) You will use the following diet at home:: No restrictions Your food should be the consistency of: Regular Your liquids should be the consistency of: Regular/Thin Discharge Activity: Return to Normal Activity Call your doctor if you observe: Shortness of breath, Chest pain Instructions: ED Chest Pain NonCardiac Allergies/Adverse Reactions: Allergies hydrocodone bitartrate [From Lortab] Allergy (Intermediate, Verified 03/21/18 09:52) Other lips swell, ataxia etodolac Allergy (Verified 03/21/18 09:52) Unknown misoprostol Allergy (Verified 03/21/18 09:52) Unknown celecoxib Adverse Reaction (Intermediate, Verified 03/21/18 09:52) Other heart palpitations diclofenac [Diclofenac] Adverse Reaction (Mild, Verified 03/21/18 09:52) Abd cramps/diarrhea ketorolac tromethamine [From Toradol] Adverse Reaction (Mild, Verified 03/21/18 09:52) Other balance issues metoclopramide HCl [From Reglan] Adverse Reaction (Mild, Verified 03/21/18 09:52) Other worsens restless leg atorvastatin [From Lipitor] Adverse Reaction (Verified 03/21/18 09:52) Other FACE SPASMS clindamycin Adverse Reaction (Verified 03/21/18 09:52) Mucosal lesions Medications to take at Discharge Levothyroxine [Synthroid] 175 mcg PO DAILY 09/01/13 Ranitidine [Zantac] 300 mg PO DAILY 05/17/14 Omeprazole [Prilosec] 20 mg PO DAILY 12/13/16 Cholecalciferol (Vitamin D3) [Vitamin D3] 5,000 unit PO DAILY 01/25/17 Aspirin E.C. [Ecotrin] 81 mg PO DAILY@0800 03/21/18 [place]-3 Fatty Acids/Fish Oil [Fish Oil 1,000 mg Capsule] 1,000 mg PO DAILY 03/21/18 Gabapentin 1,200 mg PO QHS 08/01/18 Gabapentin [Neurontin] 600 mg PO TIDCM 08/01/18 Hydroxychloroquine [Plaquenil] 200 mg PO BIDCM 08/01/18 Lisinopril [Zestril] 10 mg PO DAILY 08/01/18 Pramipexole Di-HCl [Pramipexole Dihydrochloride] 1 tab PO DAILY 08/01/18 Pramipexole Di-HCl [Pramipexole Dihydrochloride] 2 tab PO QHS 08/01/18 Venlafaxine HCl [Effexor Xr] 1 tab PO DAILY 08/01/18 Venlafaxine HCl [Venlafaxine HCl ER] 1 tab PO DAILY 08/01/18 Primary Care Physician: Gustavo Ceballos MD [Primary Care Provider] - Within 2 Weeks Test Results: Test results from this visit will be discussed in further detail at your follow- up appointment, if applicable. Proposed Discharge Date: 08/02/18
--- NOTE | 2018-08-02 11:41 | PCM.DC.SUM ---
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 Restless leg (Chronic) RENNY (obstructive sleep apnea) (Chronic) Hypothyroidism (Chronic) Diverticulosis of colon without diverticulitis (Chronic) Depression (Chronic) Postphlebitic syndrome with inflammation (Chronic) Lumbar disc disease (Chronic) History of Graves' disease (Chronic) Diabetes mellitus (Chronic) Renal insufficiency (Chronic) Presence of IVC filter (Chronic) Obesity (Chronic) Edema leg (Chronic) Leg swelling (Chronic) DVT of lower extremity (deep venous thrombosis) (Chronic) Hospital Course and Treatment Imaging Results: 08/02/18 05:55 Nuclear Stress Test - Treadmil [NM] Routine Operations: total knee replacement - Occasion, debridement right knee with complete synovectomy and tibial component revision Procedures: Stress test Summary of Care Provided: The patient is a 58 year old F presents with chest pain. Patient underwent a cardiac work-up, including stress test, that were all negative. Chest pain is noncardiac. Potential etiologies could be GI versus musculoskeletal. Patient will be discharged in stable condition. [] Patient Problems: Active and Suspected Problems Chest pain (Acute) - Physical Exam General: Alert, No apparent distress HEENT: Atraumatic, Normocephalic Lungs: Clear to auscultation, Normal air movement, No rhonchi, No wheeze Cardiovascular: Regular rate, Regular Rhythm, Normal S1, Normal S2, No murmurs Vital Signs Temp Pulse Resp BP Pulse Ox 36.9 C 79 16 130/57 H 95 08/02/18 11:11 08/02/18 11:11 08/02/18 11:11 08/02/18 11:11 08/02/18 11:11 Oxygen Delivery Method Room Air Weight: 126.8 kg Body Mass Index (BMI) 47.9 Finger Stick Blood Glucose 139 Intake and Output for Last 24 Hours 07/31/18 08/01/18 08/02/18 23:59 23:59 23:59 Intake Total 740 / 740 200 / 200 Balance 740 / 740 200 / 200 Laboratory Tests Past 24 Hrs 08/01/18 08/01/18 08/01/18 12:05 16:20 19:00 WBC RBC Hgb Hct MCV MCH MCHC RDW RDW Differential Plt Count MPV Immature Gran % (Auto) Neut % (Auto) Lymph % (Auto) [place] % (Auto) Eos % (Auto) Baso % (Auto) Absolute Neuts (auto) Absolute Lymphs (auto) Total Counted PT INR APTT Sodium Potassium Chloride Carbon Dioxide Anion Gap BUN Creatinine Estim Creat Clear Calc Est GFR (MDRD) Af Amer Est GFR (MDRD) Non-Af BUN/Creatinine Ratio Glucose Calcium Troponin I < 0.015 < 0.015 < 0.015 08/02/18 08/02/18 08/02/18 04:10 04:10 04:10 WBC 7.1 RBC 5.52 H Hgb 14.2 Hct 45.1 MCV 81.7 MCH 25.7 L MCHC 31.5 L RDW 16.6 H RDW Differential 49.8 H Plt Count 186 MPV 10.2 Immature Gran % (Auto) 0.100 Neut % (Auto) 61.4 Lymph % (Auto) 25.4 [place] % (Auto) 8.0 Eos % (Auto) 4.1 Baso % (Auto) 1.0 Absolute Neuts (auto) 4.4 Absolute Lymphs (auto) 1.80 Total Counted Not Reportable PT 13.8 INR 1.1 APTT 29.5 Sodium 144 Potassium 3.7 Chloride 112 H Carbon Dioxide 26.0 Anion Gap 6 BUN 14 Creatinine 0.70 Estim Creat Clear Calc 75.65 Est GFR (MDRD) Af Amer 110 Est GFR (MDRD) Non-Af 91 BUN/Creatinine Ratio 20.0 Glucose 93 Calcium 7.7 L Troponin I Discharge Diet: No Restrictions Discharge Activity: Return to Normal Activity Call your doctor if you observe: Shortness of breath, Chest pain Home Medications: Medications to take at Discharge Levothyroxine [Synthroid] 175 mcg PO DAILY 09/01/13 Ranitidine [Zantac] 300 mg PO DAILY 05/17/14 Omeprazole [Prilosec] 20 mg PO DAILY 12/13/16 Cholecalciferol (Vitamin D3) [Vitamin D3] 5,000 unit PO DAILY 01/25/17 Aspirin E.C. [Ecotrin] 81 mg PO DAILY@0800 03/21/18 [place]-3 Fatty Acids/Fish Oil [Fish Oil 1,000 mg Capsule] 1,000 mg PO DAILY 03/21/18 Gabapentin 1,200 mg PO QHS 08/01/18 Gabapentin [Neurontin] 600 mg PO TIDCM 08/01/18 Hydroxychloroquine [Plaquenil] 200 mg PO BIDCM 08/01/18 Lisinopril [Zestril] 10 mg PO DAILY 08/01/18 Pramipexole Di-HCl [Pramipexole Dihydrochloride] 1 tab PO DAILY 08/01/18 Pramipexole Di-HCl [Pramipexole Dihydrochloride] 2 tab PO QHS 08/01/18 Venlafaxine HCl [Effexor Xr] 1 tab PO DAILY 08/01/18 Venlafaxine HCl [Venlafaxine HCl ER] 1 tab PO DAILY 08/01/18 Primary Care Physician: Gustavo Ceballos MD [Primary Care Provider] - Within 2 Weeks Patient Instructions: ED Chest Pain NonCardiac Disposition: Home Minutes spent on discharge:: 24 Patient Condition:: Good Medical Necessity - Tobacco Use Smoking Status: Former smoker Tobacco Use: Non-smoker Meaningful Use Info Meaningful Use Diagnoses (Choose all that apply): None applicable Code Visit OBSV E&M: 66630 Observation care discharge
[2018-08-02 11:42] VITALS: PULSE 62
== END 2018-08-02 12:15 | disposition home or self-care (01) ==
LOC: ED 07:13 → ICU 10:28
PROVIDERS: Emergency Provider Emergency Medicine; Family Provider Family Medicine; PCP Family Medicine
DX: R07.89 Other chest pain (principal); R06.02 Shortness of breath; G47.33 Obstructive sleep apnea (adult) (pediatric); E66.9 Obesity, unspecified; E11.22 Type 2 diabetes mellitus with diabetic chronic kidney disease; N18.9 Chronic kidney disease, unspecified; Z86.718 Personal history of other venous thrombosis and embolism; Z68.42 Body mass index [BMI] 45.0-49.9, adult; Z71.3 Dietary counseling and surveillance; Z82.49 Family history of ischemic heart disease and other diseases of the circulatory system; Z79.899 Other long term (current) drug therapy; Z79.82 Long term (current) use of aspirin; Z86.711 Personal history of pulmonary embolism; Z87.891 Personal history of nicotine dependence
CPT/HCPCS: 71045; 71275; 78452; 80048; 84484; 85025; 85379; 85610; 85730; 93005; 93017; 96360; 96361; 99218; 99285; A9500; Q9967; A4216; G0378; J2785

== ENCOUNTER → 2018-08-08 | Outpatient (CLI) | payer BC, SELFPAY ==
[2018-08-01 06:32] VITALS: BMI 47.9
--- NOTE | 2018-08-08 10:48 | VDLE_ITS ---
Reason For Study: Pain in left leg Procedure LEFT Exam performed in department. GSV is normal. A preliminary report was called and/or CFV is compressible, spontaneous, phasic, faxed to [facility]. competent, and demonstrates normal augmentation. FV is compressible, spontaneous, phasic, competent and demonstrates normal augmentation. POP V is compressible, spontaneous, phasic, competent and demonstrates normal augmentation. T/P Trunk is compressible. PTV is compressible. LT PerV is compressible. Thrombus filled varicose veins noted lt medial/anterior/lateral thigh. Interpretation Summary Deep veins of the left lower extremity are patent and compressible segmentally. There is no evidence of left lower extremity deep vein thrombosis. Valvular competence appears intact within the proximal deep venous system on the left . The left greater saphenous vein appears patent and compressible segmentally. Acute superficial thrombophlebitis is noted involving superficial varicosities in the left medial, anterior, and lateral thigh. Ordering Physician: Benny Bobo Referring Physician: Gustavo Ceballos Performed By: Queenie Palomares RVT
== END | disposition home or self-care (01) ==
LOC: CVS 10:44
PROVIDERS: Family Provider Family Medicine; PCP Family Medicine; Referring Provider Orthopaedic Surgery; Visit Provider Orthopaedic Surgery
DX: M79.605 Pain in left leg (principal)
CPT/HCPCS: 93971

== ENCOUNTER → 2018-12-09 | Outpatient (CLI) | payer BC, SELFPAY ==
[2018-08-01 06:32] VITALS: BMI 47.9
== END | disposition home or self-care (01) ==
LOC: SDC 07:50
PROVIDERS: Family Provider Family Medicine; PCP Family Medicine; Referring Provider Podiatrist Foot & Ankle Surgery; Visit Provider Podiatrist Foot & Ankle Surgery
DX: Z01.818 Encounter for other preprocedural examination (principal)

== ENCOUNTER 2019-01-16 08:31 | Emergency (ER) | payer BC, SELFPAY ==
[2018-08-01 06:32] VITALS: BMI 47.9
[2019-01-16 08:32] VITALS: BP 127/79; PULSE 106; RESP 20; TEMP 36.9; O2SAT 98; BMI 43.0
--- NOTE | 2019-01-16 08:40 | VDLE_ITS ---
Reason For Study: Swelling RIGHT GSV is normal. CFV is compressible, spontaneous, phasic, competent and demonstrates normal augmentation. FV is compressible, spontaneous, phasic, competent and demonstrates normal augmentation. POP V is compressible, spontaneous, phasic, competent and demonstrates normal augmentation. T/P Trunk is compressible. PTV is compressible. RT PerV is compressible. Procedure Exam performed in department. A preliminary report was called and/or faxed to ED. Interpretation Summary There is no evidence of right lower extremity deep vein thrombosis. Right great saphenous vein appears patent and compressible segmentally. Ordering Physician: Real Quijano Referring Physician: Gustavo Ceballos Performed By: Queenie Palomares RVT
--- NOTE | 2019-01-16 08:42 | ED.VIS.GEN ---
History of Present Illness Chief Complaint: Cellulitis Informant: Patient Onset: Yesterday Context: Sudden Onset Timing: Continuous Quality: Pain and swelling Location: Right posterior leg Current Severity: Mild Maximum Severity: Moderate Worsened by: Weightbearing and palpation Relieved by: Nothing Associated Symptoms: Knee pain Narrative: Patient is a middle-age woman with history of 3 prior DVTs. She presents because of swelling, discoloration and pain right posterior leg. She denies palpitations or shortness of breath. She denies history of PE. She is presently on no anticoagulant. She also reports right knee pain. She is concerned that she may have infection because the knee is swollen. She denies fever, chills or night sweats. She denies GI or symptoms. There is no history of trauma. She denies paresthesia, anesthesia or motor weakness. She is status post total knee arthroplasty right and left. Prior similar symptoms: Yes Recent Illness/Hospitalization: No - Past Medical History (1) Superficial thrombophlebitis Status: Acute (2) DVT of lower extremity (deep venous thrombosis) Status: Chronic (3) Depression Status: Chronic (4) Diabetes mellitus Status: Chronic (5) Diverticulosis of colon without diverticulitis Status: Chronic (6) Edema leg Status: Chronic (7) History of Graves' disease Status: Chronic (8) Lumbar disc disease Status: Chronic (9) RENNY (obstructive sleep apnea) Status: Chronic (10) Postphlebitic syndrome with inflammation Status: Chronic (11) Presence of IVC filter Status: Chronic (12) Renal insufficiency Status: Chronic (13) Restless leg Status: Chronic Past Medical History - Allergies and Home Meds Allergies/Adverse Reactions: Allergies hydrocodone bitartrate [From Lortab] Allergy (Intermediate, Verified 01/16/19 08:34) Other lips swell, ataxia etodolac Allergy (Verified 01/16/19 08:34) Unknown misoprostol Allergy (Verified 01/16/19 08:34) Unknown celecoxib Adverse Reaction (Intermediate, Verified 01/16/19 08:34) Other heart palpitations diclofenac [Diclofenac] Adverse Reaction (Mild, Verified 01/16/19 08:34) Abd cramps/diarrhea ketorolac tromethamine [From Toradol] Adverse Reaction (Mild, Verified 01/16/19 08:34) Other balance issues metoclopramide HCl [From Reglan] Adverse Reaction (Mild, Verified 01/16/19 08:34) Other worsens restless leg atorvastatin [From Lipitor] Adverse Reaction (Verified 01/16/19 08:34) Other FACE SPASMS clindamycin Adverse Reaction (Verified 01/16/19 08:34) Mucosal lesions Primary Care Physician: Gustavo Ceballos MD [Primary Care Provider] - Prior records reviewed: Yes Surgical History: appendectomy, cholecystectomy, total knee arthroplasty - R total knee prior, tonsillectomy, - - BL thumb surgery. The patient is undergone bilateral total knee replacement surgery. She is undergone cholecystectomy, and subsequently required incisional hernia repair. Lumbar disc surgery was performed early November 2016. The patient is undergone endothermal ablation of superficial veins in the left lower extremity. An IVC filter was placed approximately 5 years ago, and remains in place. The patient is a Ab0. Lives: Alone Smoking Status: Former smoker Alcohol: None Drugs: None - Family History Maternal Family History: Reports: Heart Disease, Hypertension Paternal Family History: Reports: Heart Disease, Hypertension Sibling Family History: Reports: Cancer, Diabetes, Hypertension, - Review of Systems General: Denies: Chills, Fever, Malaise, Sweats Eyes: Denies: Visual changes - bilaterally, Blurred Vision - bilaterally, Diplopia ENT: Denies: Rhinorrhea, Sore throat Cardiovascular: Denies: Chest pain, Palpitations, Heart racing Respiratory: Denies: Dyspnea, Cough, Dyspnea on exertion Gastrointestinal: Denies: Abdominal pain, Nausea, Vomiting, Diarrhea, Melena, Hematochezia Genitourinary: Denies: Dysuria, Hematuria, Frequency Musculoskeletal: Reports: Swelling, Extremity Pain. Denies: Myalgias, Arthralgias, Neck pain, Back pain Skin: Reports: Rash - Chronic skin changes right leg. Denies: Wounds Neurological: Denies: Headache, Weakness, Numbness Endocrine: Denies: Polyuria, Polydipsia Hematologic: Denies: Easy bruising, Easy bleeding Physical Exam Vital Signs/Narrative: Vital Signs Temp Pulse Resp BP Pulse Ox 01/16/19 08:32 98.4 F 106 H 20 H 127/79 H 98 Inital Vital Signs reviewed: Yes General: Well nourished, Well developed, Obese, Unkempt, No Acute Distress Head: Normocephalic, Atraumatic Eyes: Perrl, EOMI. Negative for: Pale conjunctiva, Scleral icterus ENT: Moist mucous membranes, No rhinorrhea Neck: Supple, Nontender, No lymphadenopathy, No JVD Cardiovascular: Regular rhythm, No murmurs, Normal S1, Normal S2, Tachycardia Respiratory: No distress, CTA bilaterally, Chest nontender Abdomen: Soft, Nontender, Nondistended, Normal bowel sounds Rectal: Deferred Back: Nontender Extremities: Tenderness - Tenderness along the distribution of deep venous system right calf and popliteal fossa. There is evidence of venous stasis dermatitis. There are multiple distended leg veins. The right lower extremity is swollen compared to the left. There is pain palpation superior portion of the scar. Patient is able to extend to 180 degrees and flex approximate 120 degrees. The patella is not ballotable. There is no effusion. She does not have joint line tenderness.. Negative for: Nontender, No edema Skin: Normal color, No Trauma, Rash. Negative for: No rash, Cyanosis, Diaphoresis, Jaundice Neurological: Alert, Oriented x3, Cranial nerves II-XII grossly intact, Normal Strength, Normal Sensation. Negative for: Normal Gait - Patient uses a walker to walk and has a discernible limp. Psychological: Normal affect, Normal Mood Diagnostic/Tx/Re-eval Laboratory Results 01/16/19 01/16/19 09:10 09:10 WBC 12.5 H RBC 5.72 H Hgb 15.6 H Hct 48.9 H MCV 85.5 MCH 27.3 MCHC 31.9 L RDW Std Deviation 46.9 H RDW Coeff of Sergio 15.0 H Plt Count 178 MPV 10.4 Immature Gran % (Auto) 0.400 Neut % (Auto) 79.9 H Lymph % (Auto) 11.2 L [place] % (Auto) 7.3 Eos % (Auto) 0.6 Baso % (Auto) 0.6 Absolute Neuts (auto) 10.0 H Absolute Lymphs (auto) 1.40 Nucleated RBC % 0 Sodium 137 Potassium 4.2 Chloride 102 Carbon Dioxide 29.0 Anion Gap 6 BUN 11 Creatinine 0.94 Estim Creat Clear Calc 56.33 Est GFR (MDRD) Af Amer 79 Est GFR (MDRD) Non-Af 65 BUN/Creatinine Ratio 11.7 Glucose 110 H Calcium 9.4 White count is elevated 12.5 with no bandemia. Basic metabolic panel is unremarkable. Since there is an area of erythema warmth and may represent cellulitis patient was treated with doxycycline. She received her first dose in the emergency department. He was instructed to follow-up with her primary care physician in 2 to 3 days. - Medical Decision Making With history of 3 prior deep venous thrombus clots and patient presenting with swelling, pain and a Wells score for DVT of 3 will obtain venous duplex study to evaluate for blood clot. Since she is diabetic we will obtain basic metabolic panel to assess electrolytes as well as blood sugar. CBC was obtained because the leg does feel slightly porter marina the event this is an infection versus a DVT. Did receive morphine and Zofran for her pain. Concern for joint infection is low because she does not have joint line tenderness does have good range of motion without pain or difficulty. Patient has pain over her incision site not the joint. This duplex study reveals no evidence of DVT. Patient was informed. There is area of erythema and warmth mid medial right calf. This may represent cellulitis. Awaiting results of blood work. ED Disposition - Plan for ED Patient: Disposition: Home or Assisted Living Diagnosis: Cellulitis of right leg without foot, Lymphedema of right lower extremity, History of DVT (deep vein thrombosis) Instructions: Cellulitis Prescriptions: Doxycycline 100 mg PO BID #14 cap Transmission Status: Pending to [facility]/pharmacy #[id number] Referrals: Gustavo Ceballos MD [Primary Care Provider] - 2 Days for wound check Additional Instructions: . Your prescription was electronically transmitted to [facility] pharmacy located on [facility]. 2. If you are unable to seen by your primary care physician in 2 to 3 days please return to the emergency department for reevaluation. If there is any concern the infection is worsening please return sooner.
[2019-01-16 09:26] LABS: Basophil# 0.07 X10^3/uL; Basophil% 0.6 % (0-1); Eosinophil# 0.07 X10^3/uL; Eosinophils% 0.6 % (0-5); Hematocrit 48.9 % (37-47); Hemoglobin 15.6 g/dL (12.0-15.0); Lymphocyte % 11.2 % (19-41); Mean Corp Hgb Conc 31.9 g/dL (32-36); Mean Corpuscular Hgb 27.3 pg (27.0-32.0); Mean Corpuscular Volume 85.5 fL (81-99); Mean Platelet Vol. 10.4 fl (6.2-12.0); Monocyte# 0.91 X10^3/uL; Monocyte% 7.3 % (0-10); NRBC Flagged by Analyzer 0 % (0-5); Neutrophil # 9.95 X10^3/uL (2.7-7.7); Neutrophil % 79.9 % (47-70); Platelet Count 178 K/mm3 (150-450); RBC Distribution Width SD 46.9 fl (35.1-43.9); Red Blood Count 5.72 M/mm3 (4.2-5.4); White Blood Count 12.5 K/mm3 (4.4-11.0)
[2019-01-16] MEDS: Ondansetron 4 MG/2 ML Vial IV (09:26)
[2019-01-16] MEDS: Morphine 4 MG/ML Syringe IV (09:26)
[2019-01-16 09:42] LABS: Anion Gap 6 (5-15); BUN 11 mg/dL (7-18); BUN/Creat Ratio 11.7 RATIO (10-20); Calcium,Total 9.4 mg/dL (8.5-10.1); Chloride 102 mmol/L (98-107); Creatinine, Serum 0.94 mg/dL (0.55-1.02); EST Glomerular Filtration Rate 65 mL/min (>60); Est Glom Filt Rate - Afr Amer 79 mL/min (>60); Estimated Creatinine Clearance 56.33 ml/min; Glucose 110 mg/dL (74-106); Potassium 4.2 mmol/L (3.5-5.1); Sodium Level 137 mmol/L (136-145)
[2019-01-16] MEDS: Doxycycline 100 MG CAPSULE PO (10:05)
[2019-01-16] MEDS: Ondansetron ODT 4 MG Tablet PO (10:05)
== END 2019-01-16 11:11 | disposition home or self-care (01) ==
PROVIDERS: Emergency Provider Emergency Medicine; Family Provider Family Medicine; PCP Family Medicine
DX: L03.115 Cellulitis of right lower limb (principal); I89.0 Lymphedema, not elsewhere classified; E11.9 Type 2 diabetes mellitus without complications; E05.00 Thyrotoxicosis with diffuse goiter without thyrotoxic crisis or storm; G47.33 Obstructive sleep apnea (adult) (pediatric); F32.9 Major depressive disorder, single episode, unspecified; Z79.899 Other long term (current) drug therapy; Z86.718 Personal history of other venous thrombosis and embolism; Z96.653 Presence of artificial knee joint, bilateral; Z87.891 Personal history of nicotine dependence
CPT/HCPCS: 80048; 85025; 93971; 96374; 96375; 99284; J7030; J2405

== ENCOUNTER 2019-01-20 16:06 | Emergency (ER) | payer BC, SELFPAY ==
[2019-01-20 16:07] VITALS: BP 130/71; PULSE 89; RESP 20; TEMP 36.7; O2SAT 96; BMI 43.7
[2019-01-20 17:20] LABS: Absolute Lymphocyte Count 2.11 X10^3/uL (0.83-4.51); Absolute Neutrophil Count 6.3 X10^3/uL (2.0-7.7); Basophil# 0.08 X10^3/uL; Basophil% 0.8 % (0-1); Eosinophil# 0.23 X10^3/uL; Eosinophils% 2.4 % (0-5); Hematocrit 40.6 % (37-47); Lymphocyte # 2.11 X10^3/ul (4.0); Lymphocyte % 21.9 % (19-41); Mean Corpuscular Hgb 27.3 pg (27.0-32.0); Mean Corpuscular Volume 85.1 fL (81-99); Mean Platelet Vol. 9.6 fl (6.2-12.0); Monocyte# 0.86 X10^3/uL; Monocyte% 8.9 % (0-10); NRBC Flagged by Analyzer 0 % (0-5); Neutrophil # 6.32 X10^3/uL (2.7-7.7); Neutrophil % 65.6 % (47-70); Platelet Count 251 K/mm3 (150-450); RBC Distribution Width CV 14.6 % (11.6-14.6); RBC Distribution Width SD 45.6 fl (35.1-43.9); Red Blood Count 4.77 M/mm3 (4.2-5.4); White Blood Count 9.6 K/mm3 (4.4-11.0)
[2019-01-20 17:29] LABS: Anion Gap 7 (5-15); BUN 16 mg/dL (7-18); Calcium,Total 8.9 mg/dL (8.5-10.1); Chloride 110 mmol/L (98-107); EST Glomerular Filtration Rate 78 mL/min (>60); Est Glom Filt Rate - Afr Amer 95 mL/min (>60); Estimated Creatinine Clearance 66.19 ml/min; Glucose 111 mg/dL (74-106); Potassium 3.5 mmol/L (3.5-5.1); Sodium Level 144 mmol/L (136-145)
--- NOTE | 2019-01-20 17:54 | US_ITS ---
STUDY: VENOUS DOPPLER ULTRASOUND - RIGHT LOWER EXTREMITY REASON FOR EXAM: Female, 58 years old. Swelling TECHNIQUE: Ultrasound evaluation of the deep vein system to include holman-scale imaging and compression was performed. Holman-scale imaging and Doppler sonographic evaluation, including duplex spectral analysis and qualitative color flow sonography, was performed. COMPARISON: None. FINDINGS: Common Femoral Vein: Normal compression, spontaneity and augmentation. Normal color Doppler. Common Femoral Vein/Greater Saphenous Junction: Normal compression, spontaneity and augmentation. Normal color Doppler. Deep Femoral Vein: Normal compression, spontaneity and augmentation. Normal color Doppler. Femoral Proximal: Normal compression, spontaneity and augmentation. Normal color Doppler. Femoral Middle: Normal compression, spontaneity and augmentation. Normal color Doppler. Femoral Distal: Normal compression, spontaneity and augmentation. Normal color Doppler. Popliteal Vein: Normal compression, spontaneity and augmentation. Normal color Doppler. Posterior Tibial Vein: Normal compression, spontaneity and augmentation. Normal color Doppler. Peroneal Vein: Normal compression, spontaneity and augmentation. Normal color Doppler. US/Venous Duplex Imag/Limited/Uni IMPRESSION: Normal venous Doppler ultrasound of the lower extremity. Electronically Signed: Gustavo Calero, at 20:11 EDT Tel , Service support ,
--- NOTE | 2019-01-20 18:09 | ED.VIS.GEN ---
History of Present Illness Chief Complaint: Cellulitis Informant: Patient Onset: Today Context: Sudden Onset Timing: Continuous Quality: Red rash anterior right knee Location: Right knee/proximal anterior leg and distal anterior thigh Current Severity: Mild Maximum Severity: Mild Worsened by: Possible skin abrasion Relieved by: Nothing Associated Symptoms: No recent fever or chills Narrative: Patient was seen this past Wednesday by me. She was diagnosed with cellulitis of the distal medial right leg. She was placed on doxycycline. The erythema has resolved. She now presents because of erythema over the anterior right knee. She is concerned because the scar is read as well. She had a total right knee arthroplasty performed by Dr. Ruben Barton. She documented temperature to 102 on Wednesday. She has had no documented temperature in the past 24 hours. She states she noted the rash this morning. She also has pain in the calf with increased swelling of the leg. Prior similar symptoms: Yes Recent Illness/Hospitalization: Yes - Past Medical History (1) Superficial thrombophlebitis Status: Acute (2) DVT of lower extremity (deep venous thrombosis) Status: Chronic (3) Depression Status: Chronic (4) Diabetes mellitus Status: Chronic (5) Edema leg Status: Chronic (6) History of Graves' disease Status: Chronic (7) Hx of total knee replacement Status: Chronic Comment: right (8) Hypothyroidism Status: Chronic (9) Lumbar disc disease Status: Chronic (10) RENNY (obstructive sleep apnea) Status: Chronic (11) Postphlebitic syndrome with inflammation Status: Chronic (12) Presence of IVC filter Status: Chronic (13) Renal insufficiency Status: Chronic (14) Restless leg Status: Chronic Past Medical History - Allergies and Home Meds Allergies/Adverse Reactions: Allergies hydrocodone bitartrate [From Lortab] Allergy (Intermediate, Verified 01/20/19 16:07) Other lips swell, ataxia etodolac Allergy (Verified 01/20/19 16:07) Unknown misoprostol Allergy (Verified 01/20/19 16:07) Unknown celecoxib Adverse Reaction (Intermediate, Verified 01/20/19 16:07) Other heart palpitations diclofenac [Diclofenac] Adverse Reaction (Mild, Verified 01/20/19 16:07) Abd cramps/diarrhea ketorolac tromethamine [From Toradol] Adverse Reaction (Mild, Verified 01/20/19 16:07) Other balance issues metoclopramide HCl [From Reglan] Adverse Reaction (Mild, Verified 01/20/19 16:07) Other worsens restless leg atorvastatin [From Lipitor] Adverse Reaction (Verified 01/20/19 16:07) Other FACE SPASMS clindamycin Adverse Reaction (Verified 01/20/19 16:07) Mucosal lesions Primary Care Physician: Gustavo Ceballos MD [Primary Care Provider] - Prior records reviewed: Yes Surgical History: appendectomy, cholecystectomy, total knee arthroplasty - R total knee prior, tonsillectomy, - - BL thumb surgery. The patient is undergone bilateral total knee replacement surgery. She is undergone cholecystectomy, and subsequently required incisional hernia repair. Lumbar disc surgery was performed early November 2016. The patient is undergone endothermal ablation of superficial veins in the left lower extremity. An IVC filter was placed approximately 5 years ago, and remains in place. The patient is a Ab0. Lives: Spouse/ Significant Other Smoking Status: Never smoker Alcohol: None Drugs: None - Family History Maternal Family History: Reports: Heart Disease, Hypertension Paternal Family History: Reports: Heart Disease, Hypertension Sibling Family History: Reports: Cancer, Diabetes, Hypertension, - Review of Systems General: Reports: - - No symptoms 24 hours after antibiotics were started. Denies: Chills, Fever, Sweats Eyes: Denies: Visual changes - bilaterally, Diplopia ENT: Denies: Rhinorrhea, Sore throat Cardiovascular: Denies: Chest pain, Palpitations Respiratory: Denies: Dyspnea, Cough, Dyspnea on exertion Gastrointestinal: Denies: Abdominal pain, Nausea, Vomiting, Diarrhea, Melena, Hematochezia Genitourinary: Denies: Dysuria, Hematuria, Frequency Musculoskeletal: Denies: Back pain, Extremity Pain Skin: Reports: Rash - Erythema anterior proximal right leg and distal right thigh. There is warmth. There is no induration. There is no lymphangitis nor is there any inguinal lymphadenopathy. Neurological: Denies: Headache, Weakness, Numbness Hematologic: Denies: Easy bruising Allergy: Denies: Uticaria, Swelling of the mouth Physical Exam Vital Signs/Narrative: Vital Signs Temp Pulse Resp BP Pulse Ox 01/20/19 16:07 98.1 F 89 20 H 130/71 H 96 Inital Vital Signs reviewed: Yes General: Well nourished, Well developed, Obese, No Acute Distress Head: Normocephalic, Atraumatic Eyes: Perrl, EOMI ENT: Moist mucous membranes, No rhinorrhea Neck: Supple, Nontender Cardiovascular: Regular rate, Regular rhythm, No murmurs, Normal S1, Normal S2 Respiratory: No distress, CTA bilaterally, Chest nontender Extremities: - - For leg pain distentions, there is tenderness on the disputes deep venous system and the right leg is significantly swollen compared to left and increased swelling since seen on Wednesday.. Negative for: Nontender, No edema Skin: Normal color, Rash, Trauma - Visions noted anterior medial right leg mid third. Negative for: No rash Neurological: Alert, Oriented x3, Cranial nerves II-XII grossly intact, Normal Strength, Normal Sensation Psychological: Normal affect, Normal Mood Diagnostic/Tx/Re-eval Laboratory Results 01/20/19 01/20/19 01/20/19 17:05 17:05 17:05 WBC 9.6 RBC 4.77 Hgb 13.0 Hct 40.6 MCV 85.1 MCH 27.3 MCHC 32.0 RDW Std Deviation 45.6 H RDW Coeff of Sergio 14.6 Plt Count 251 MPV 9.6 Immature Gran % (Auto) 0.400 Neut % (Auto) 65.6 Lymph % (Auto) 21.9 [place] % (Auto) 8.9 Eos % (Auto) 2.4 Baso % (Auto) 0.8 Absolute Neuts (auto) 6.3 Absolute Lymphs (auto) 2.11 Nucleated RBC % 0 Sodium 144 Potassium 3.5 Chloride 110 H Carbon Dioxide 27.0 Anion Gap 7 BUN 16 Creatinine 0.80 Estim Creat Clear Calc 66.19 Est GFR (MDRD) Af Amer 95 Est GFR (MDRD) Non-Af 78 BUN/Creatinine Ratio 20.0 Glucose 111 H Lactic Acid 1.0 Calcium 8.9 Venous duplex study of the right lower extremity reveals no evidence of DVT or superficial bursitis. There are enlarged inguinal lymph nodes consistent with infection. Since white count, lactate and CO2/anion gap are normal she was discharged with amoxicillin 500 mg to take in addition to doxycycline. - Medical Decision Making With prior history of DVT increased swelling the right lower extremity with pain on distribution of deep venous system and leg vein distention venous duplex study was obtained in the right lower extremity to evaluate for DVT. The erythema may represent superficial Vitas versus cellulitis. Baseline blood work was obtained and will be compared to results from prior. ED Disposition - Plan for ED Patient: Disposition: Home or Assisted Living Diagnosis: Cellulitis of right knee Instructions: Cellulitis Referrals: Gustavo Ceballos MD [Primary Care Provider] - Additional Instructions: Keep your scheduled appointment with Dr. Ruben Barton on Wednesday. Take 1 of your Amoxil pills every 8 hours for the next 7 days.
[2019-01-20 19:12] VITALS: BP 131/100; PULSE 80; RESP 18; O2SAT 99
[2019-01-20 19:38] VITALS: BP 128/78; PULSE 74; RESP 16; O2SAT 98
== END 2019-01-20 19:39 | disposition home or self-care (01) ==
PROVIDERS: Emergency Provider Emergency Medicine; Family Provider Family Medicine; PCP Family Medicine
DX: L03.115 Cellulitis of right lower limb (principal); M79.89 Other specified soft tissue disorders; F32.9 Major depressive disorder, single episode, unspecified; E11.9 Type 2 diabetes mellitus without complications; E05.00 Thyrotoxicosis with diffuse goiter without thyrotoxic crisis or storm; E03.9 Hypothyroidism, unspecified; G47.33 Obstructive sleep apnea (adult) (pediatric); E66.9 Obesity, unspecified; Z96.651 Presence of right artificial knee joint; Z86.718 Personal history of other venous thrombosis and embolism; Z79.899 Other long term (current) drug therapy
CPT/HCPCS: 80048; 83605; 85025; 93971; 99283; A4216

== ENCOUNTER → 2019-01-23 | Outpatient (CLI) | payer BC, SELFPAY ==
[2019-01-20 16:07] VITALS: BMI 43.7
[2019-01-23 17:22] LABS: Absolute Lymphocyte Count 2.05 X10^3/uL (0.83-4.51); Absolute Neutrophil Count 6.3 X10^3/uL (2.0-7.7); Basophil# 0.08 X10^3/uL; Basophil% 0.9 % (0-1); Eosinophil# 0.23 X10^3/uL; Eosinophils% 2.4 % (0-5); Hematocrit 41.4 % (37-47); Hemoglobin 13.1 g/dL (12.0-15.0); Lymphocyte # 2.05 X10^3/ul (4.0); Lymphocyte % 21.8 % (19-41); Mean Corp Hgb Conc 31.6 g/dL (32-36); Mean Corpuscular Hgb 27.1 pg (27.0-32.0); Mean Corpuscular Volume 85.7 fL (81-99); Mean Platelet Vol. 8.7 fl (6.2-12.0); Monocyte# 0.67 X10^3/uL; Monocyte% 7.1 % (0-10); NRBC Flagged by Analyzer 0 % (0-5); Neutrophil % 67.1 % (47-70); Platelet Count 328 K/mm3 (150-450); RBC Distribution Width CV 14.6 % (11.6-14.6); RBC Distribution Width SD 46.1 fl (35.1-43.9); Red Blood Count 4.83 M/mm3 (4.2-5.4); White Blood Count 9.4 K/mm3 (4.4-11.0)
[2019-01-23 17:41] LABS: Erythrocyte Sedimentation Rate 94 mm/hr (0-30)
== END | disposition home or self-care (01) ==
LOC: LAB 17:04
PROVIDERS: Family Provider Family Medicine; PCP Family Medicine; Referring Provider Specialist; Visit Provider Specialist
DX: Z96.653 Presence of artificial knee joint, bilateral (principal)
CPT/HCPCS: 36415; 85025; 85652; 86140

== ENCOUNTER → 2019-01-26 | Outpatient (CLI) | payer BC, SELFPAY ==
[2019-01-20 16:07] VITALS: BMI 43.7
[2019-01-26 10:19] LABS: Synovial Fld Mononuclear WBC % 2.3 %; Synovial Fld Polynuclear WBC % 97.7 %
[2019-01-26 10:40] LABS: RBC /Synovial Fluid 0.006 10^6/uL (0)
[2019-01-26 11:24] LABS: Lymph 2 %; Neutrophil 95 % (0-25); Other Cell /Synovial Fluid 3 %
[2019-01-26 11:27] LABS: AUTO B FLUID DILUENT BKGD CT WBC <0.1 RBC <0.01 (W<.1,R<.01)
[2019-01-26 11:28] LABS: Appearance /Synovial Fluid Turbid (CLEAR); Body Fluid QC Type(s) BF1Q; Color / Synovial Fluid Yellow (Pale Yellow); Source / Synovial Fluid KNEE
[2019-01-27 11:45] LABS: Pathologist Comment Reviewed
== END | disposition home or self-care (01) ==
LOC: LABSPEC 09:14
PROVIDERS: Family Provider Family Medicine; PCP Family Medicine; Referring Provider Specialist; Visit Provider Specialist
DX: Z96.651 Presence of right artificial knee joint (principal)
CPT/HCPCS: 87015; 87070; 87075; 87077; 87101; 87116; 87186; 87205; 87206; 89050; 89051

== ENCOUNTER 2019-01-27 17:23 | Inpatient (IN) | payer BC, SELFPAY ==
[2019-01-27 17:24] VITALS: BP 168/74; PULSE 96; RESP 15; TEMP 36.8; O2SAT 97; BMI 42.9
[2019-01-27 18:05] LABS: Absolute Lymphocyte Count 1.79 X10^3/uL (0.83-4.51); Absolute Neutrophil Count 7.9 X10^3/uL (2.0-7.7); Basophil# 0.07 X10^3/uL; Basophil% 0.7 % (0-1); Eosinophil# 0.14 X10^3/uL; Eosinophils% 1.3 % (0-5); Hematocrit 41.5 % (37-47); Hemoglobin 13.3 g/dL (12.0-15.0); Lymphocyte # 1.79 X10^3/ul (4.0); Lymphocyte % 16.7 % (19-41); Mean Corpuscular Hgb 27.5 pg (27.0-32.0); Mean Corpuscular Volume 85.7 fL (81-99); Mean Platelet Vol. 9.1 fl (6.2-12.0); Monocyte# 0.69 X10^3/uL; Monocyte% 6.5 % (0-10); NRBC Flagged by Analyzer 0 % (0-5); Neutrophil # 7.94 X10^3/uL (2.7-7.7); Neutrophil % 74.2 % (47-70); Platelet Count 350 K/mm3 (150-450); RBC Distribution Width CV 14.5 % (11.6-14.6); RBC Distribution Width SD 45.2 fl (35.1-43.9); Red Blood Count 4.84 M/mm3 (4.2-5.4); White Blood Count 10.7 K/mm3 (4.4-11.0)
[2019-01-27 18:12] VITALS: BP 168/74; PULSE 96; RESP 15; TEMP 36.8; O2SAT 98
[2019-01-27 18:19] LABS: Anion Gap 6 (5-15); BUN 14 mg/dL (7-18); BUN/Creat Ratio 19.1 RATIO (10-20); Calcium,Total 9.2 mg/dL (8.5-10.1); Chloride 105 mmol/L (98-107); Creatinine, Serum 0.73 mg/dL (0.55-1.02); EST Glomerular Filtration Rate 87 mL/min (>60); Est Glom Filt Rate - Afr Amer 105 mL/min (>60); Estimated Creatinine Clearance 72.54 ml/min; Glucose 98 mg/dL (74-106); Potassium 3.7 mmol/L (3.5-5.1); Sodium Level 140 mmol/L (136-145)
--- NOTE | 2019-01-27 18:39 | US_ITS ---
STUDY: VENOUS DOPPLER ULTRASOUND - RIGHT LOWER EXTREMITY REASON FOR EXAM: Female, 58 years old. Infected right knee status post knee replacement TECHNIQUE: Ultrasound evaluation of the deep vein system to include holman-scale imaging and compression was performed. Holman-scale imaging and Doppler sonographic evaluation, including duplex spectral analysis and qualitative color flow sonography, was performed. COMPARISON: Previous study of 01/20/2019 FINDINGS: Common Femoral Vein: Normal compression, spontaneity and augmentation. Normal color Doppler. Common Femoral Vein/Greater Saphenous Junction: Normal compression. No internal echoes. Deep Femoral Vein: Not imaged Femoral Proximal: Normal compression. No internal echoes. Femoral Middle: Normal compression, spontaneity and augmentation. Normal color Doppler. Femoral Distal: Normal compression. No internal echoes. Popliteal Vein: Normal compression, spontaneity and augmentation. Normal color Doppler. Posterior Tibial Vein: Normal compression. No internal echoes. Peroneal Vein: Normal compression. No internal echoes. There is incidentally noted an anechoic cystic focus of the popliteal fossa measuring 5.9 x 2.7 x 1.9 cm consistent with a Santiago's cyst. US/Venous Duplex Imag/Limited/Uni IMPRESSION: No evidence of deep venous thrombosis of the right lower extremity. Probable Santiago's cyst of the popliteal fossa. Electronically Signed: Gary Andrea MD at 19:45 EDT , Service support ,
[2019-01-27 18:44] LABS: Erythrocyte Sedimentation Rate 89 mm/hr (0-30)
[2019-01-27 19:00] VITALS: BP 140/75; PULSE 78; RESP 18; TEMP 36.9; O2SAT 94
[2019-01-27] MEDS: Ondansetron 4 MG/2 ML Vial IV (19:00)
[2019-01-27] MEDS: Morphine 4 MG/ML Syringe IV (19:00)
--- NOTE | 2019-01-27 19:52 | ED.VIS.GEN ---
History of Present Illness Chief Complaint: Edema Detail of Chief Complaint: Right leg pain and swelling Informant: Patient Onset: Days Current Severity: Moderate Maximum Severity: Moderate Narrative: Patient presents again with infected right knee. She had knee replacement a couple years ago. Last week she was diagnosed with an infection. She was initially on doxycycline for cellulitis. She was seen here in the ER on the in the . She was seen by Dr. Barton yesterday. Fluid was taken off the knee. This does reveal 3+ white cells with no organisms at this time. Patient presents today with increased swelling and pain. She was sent in by Dr. Barton. She reports developing a fever of 100 this afternoon. Past Medical History - Allergies and Home Meds Allergies/Adverse Reactions: Allergies hydrocodone bitartrate [From Lortab] Allergy (Intermediate, Verified 01/20/19 16:07) Other lips swell, ataxia etodolac Allergy (Verified 01/20/19 16:07) Unknown misoprostol Allergy (Verified 01/20/19 16:07) Unknown celecoxib Adverse Reaction (Intermediate, Verified 01/20/19 16:07) Other heart palpitations diclofenac [Diclofenac] Adverse Reaction (Mild, Verified 01/20/19 16:07) Abd cramps/diarrhea ketorolac tromethamine [From Toradol] Adverse Reaction (Mild, Verified 01/20/19 16:07) Other balance issues metoclopramide HCl [From Reglan] Adverse Reaction (Mild, Verified 01/20/19 16:07) Other worsens restless leg atorvastatin [From Lipitor] Adverse Reaction (Verified 01/20/19 16:07) Other FACE SPASMS clindamycin Adverse Reaction (Verified 01/20/19 16:07) Mucosal lesions Primary Care Physician: Gustavo Ceballos MD [Primary Care Provider] - Prior records reviewed: Yes Past Medical History: - - Reviewed Surgical History: appendectomy, cholecystectomy, total knee arthroplasty - R total knee prior, tonsillectomy, - - BL thumb surgery. The patient is undergone bilateral total knee replacement surgery. She is undergone cholecystectomy, and subsequently required incisional hernia repair. Lumbar disc surgery was performed early November 2016. The patient is undergone endothermal ablation of superficial veins in the left lower extremity. An IVC filter was placed approximately 5 years ago, and remains in place. The patient is a Ab0. Lives: Spouse/ Significant Other Smoking Status: Former smoker - Family History Maternal Family History: Reports: Heart Disease, Hypertension Paternal Family History: Reports: Heart Disease, Hypertension Sibling Family History: Reports: Cancer, Diabetes, Hypertension, - Review of Systems General: Reports: Fever Eyes: Denies: Visual changes - bilaterally ENT: Denies: Bilateral ear pain Cardiovascular: Denies: Chest pain Respiratory: Denies: Dyspnea Gastrointestinal: Reports: Nausea. Denies: Abdominal pain, Vomiting Genitourinary: Denies: Dysuria, Hematuria Musculoskeletal: Reports: Arthralgias, Swelling, Extremity Pain Skin: Reports: Rash Hematologic: Denies: Easy bruising Allergy: Denies: Uticaria Physical Exam Vital Signs/Narrative: Vital Signs Temp Pulse Resp BP Pulse Ox 01/27/19 19:00 98.5 F 78 18 140/75 H 94 01/27/19 18:12 98.3 F 96 15 168/74 H 98 01/27/19 17:24 98.3 F 96 15 168/74 H 97 Inital Vital Signs reviewed: Yes General: Well nourished, Well developed Head: Normocephalic ENT: Moist mucous membranes Neck: Supple Cardiovascular: Regular rate, Regular rhythm Respiratory: No distress, CTA bilaterally Abdomen: Soft, Nontender Extremities: Edema - 3+ edema the right lower extremity. Mild erythema over the distal knee. Strong distal pulses are noted. There is some mild swelling and erythema noted over the distal left foot. Skin: - - As above Neurological: Alert, Oriented x3 Psychological: Normal affect Diagnostic/Tx/Re-eval Impressions Venous Duplex 01/27/19 18:39 IMPRESSION: No evidence of deep venous thrombosis of the right lower extremity. Probable Santiago's cyst of the popliteal fossa. Electronically Signed: Gary Andrea MD at 19:45 EDT , Service support , Laboratory Results 01/27/19 01/27/19 01/27/19 17:34 17:34 17:34 WBC 10.7 RBC 4.84 Hgb 13.3 Hct 41.5 MCV 85.7 MCH 27.5 MCHC 32.0 RDW Std Deviation 45.2 H RDW Coeff of Sergio 14.5 Plt Count 350 MPV 9.1 Immature Gran % (Auto) 0.600 Neut % (Auto) 74.2 H Lymph % (Auto) 16.7 L [place] % (Auto) 6.5 Eos % (Auto) 1.3 Baso % (Auto) 0.7 Absolute Neuts (auto) 7.9 H Absolute Lymphs (auto) 1.79 Nucleated RBC % 0 ESR 89 H Sodium 140 Potassium 3.7 Chloride 105 Carbon Dioxide 29.0 Anion Gap 6 BUN 14 Creatinine 0.73 Estim Creat Clear Calc 72.54 Est GFR (MDRD) Af Amer 105 Est GFR (MDRD) Non-Af 87 BUN/Creatinine Ratio 19.1 Glucose 98 Calcium 9.2 C-React Prot Ext Range 01/27/19 17:34 WBC RBC Hgb Hct MCV MCH MCHC RDW Std Deviation RDW Coeff of Sergio Plt Count MPV Immature Gran % (Auto) Neut % (Auto) Lymph % (Auto) [place] % (Auto) Eos % (Auto) Baso % (Auto) Absolute Neuts (auto) Absolute Lymphs (auto) Nucleated RBC % ESR Sodium Potassium Chloride Carbon Dioxide Anion Gap BUN Creatinine Estim Creat Clear Calc Est GFR (MDRD) Af Amer Est GFR (MDRD) Non-Af BUN/Creatinine Ratio Glucose Calcium C-React Prot Ext Range 95.30 H - Medical Decision Making Patient was given morphine and Zofran for pain control. She is currently on amoxicillin. I spoke with Dr. Barton. He asked that we have medicine admit the patient and cleared her for surgery. He will plan on taking her to the OR 8:00 tomorrow morning for knee revision and washout. ED Disposition - Plan for ED Patient: Disposition: [facility] Care [facility] [place] Diagnosis: Infection of right knee Referrals: Gustavo Ceballos MD [Primary Care Provider] -
--- NOTE | 2019-01-27 19:56 | PCM.HP.STD ---
Problem List (1) Septic joint Status: Acute (2) Chest pain Status: Inactive Qualifiers: Chest pain type: unspecified Qualified Code(s): R07.9 - Chest pain, unspecified (3) Superficial thrombophlebitis Status: Inactive Qualifiers: Superficial thrombophlebitis-Involved body area: lower extremity Laterality: left Qualified Code(s): I80.02 - Phlebitis and thrombophlebitis of superficial vessels of left lower extremity History of Present Illness Date of Admission: 01/27/19 Chief Complaint: right knee swelling The patient is a 58 year old F with a significant history of diabetes mellitus; Graves' disease; hypertension; depression; anxiety; and bilateral knee replacement with previous history of septic joint with antibiotic treatment for one year who presented to the emergency department with right knee swelling that started about 9 days before presentation. Associated with her symptoms is increased redness and pain at the right knee. Patient had excruciating pain in the right knee to the point that it was difficult for her to walk. She saw her orthopedic surgeon Dr. Barton who did an arthrocentesis. Arthrocentesis came back with white count without any bacteria. On the day of presentation patient had a fever of 100F at home. Of note about 2 weeks ago patient's was treated for right leg cellulitis with Doxycycline. On 01/20/2019 she was again prescribed amoxicillin for cellulitis of right leg. Her right knee was replaced in 2011. Two years ago she had an infection of the right knee and it was cleaned out. She was on antibiotic for 1 year. Past Medical History Past Medical History (Chronic Problems): Chronic Problems History of DVT (deep vein thrombosis) (Chronic) Septic arthritis of knee, right (Chronic) Hx of total knee replacement (Chronic) right Restless leg (Chronic) RENNY (obstructive sleep apnea) (Chronic) Hypothyroidism (Chronic) Diverticulosis of colon without diverticulitis (Chronic) Depression (Chronic) Postphlebitic syndrome with inflammation (Chronic) Lumbar disc disease (Chronic) History of Graves' disease (Chronic) Diabetes mellitus (Chronic) Renal insufficiency (Chronic) Presence of IVC filter (Chronic) Obesity (Chronic) Edema leg (Chronic) Leg swelling (Chronic) DVT of lower extremity (deep venous thrombosis) (Chronic) Allergies hydrocodone bitartrate [From Lortab] Allergy (Intermediate, Verified 01/20/19 16:07) Other lips swell, ataxia etodolac Allergy (Verified 01/20/19 16:07) Unknown misoprostol Allergy (Verified 01/20/19 16:07) Unknown celecoxib Adverse Reaction (Intermediate, Verified 01/20/19 16:07) Other heart palpitations diclofenac [Diclofenac] Adverse Reaction (Mild, Verified 01/20/19 16:07) Abd cramps/diarrhea ketorolac tromethamine [From Toradol] Adverse Reaction (Mild, Verified 01/20/19 16:07) Other balance issues metoclopramide HCl [From Reglan] Adverse Reaction (Mild, Verified 01/20/19 16:07) Other worsens restless leg atorvastatin [From Lipitor] Adverse Reaction (Verified 01/20/19 16:07) Other FACE SPASMS clindamycin Adverse Reaction (Verified 01/20/19 16:07) Mucosal lesions Home Medications: Ambulatory Orders Medication Instructions Recorded Levothyroxine [Synthroid] 175 mcg PO DAILY 09/01/13 Ranitidine [Zantac] 300 mg PO DAILY 05/17/14 Omeprazole [Prilosec] 20 mg PO DAILY 12/13/16 Cholecalciferol (Vitamin D3) 5,000 unit PO DAILY@1200 01/25/17 [Vitamin D3] [place]-3 Fatty Acids/Fish Oil [Fish 2,000 mg PO DAILY 03/21/18 Oil 1,000 mg Capsule] Gabapentin 1,200 mg PO BID 08/01/18 Gabapentin [Neurontin] 600 mg PO .LUNCHTIME 08/01/18 Hydroxychloroquine [Plaquenil] 200 mg PO BIDCM 08/01/18 Lisinopril [Zestril] 10 mg PO DAILY 08/01/18 Pramipexole Di-HCl [Pramipexole 1.5 tab PO DAILY 08/01/18 Dihydrochloride] Pramipexole Di-HCl [Pramipexole 3 mg PO QHS 08/01/18 Dihydrochloride] Venlafaxine HCl [Effexor Xr] 1 tab PO QHS 08/01/18 Venlafaxine HCl [Venlafaxine HCl 1 tab PO QHS 08/01/18 ER] Amoxicillin [Amoxil] 500 mg PO TID 01/27/19 Surgical History: appendectomy, cholecystectomy, total knee arthroplasty - R total knee prior, tonsillectomy, - - BL thumb surgery. The patient is undergone bilateral total knee replacement surgery. She is undergone cholecystectomy, and subsequently required incisional hernia repair. Lumbar disc surgery was performed early November 2016. The patient is undergone endothermal ablation of superficial veins in the left lower extremity. An IVC filter was placed approximately 5 years ago, and remains in place. The patient is a Ab0. 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 Denies: Weight Change HEENT: Denies: Head Aches, Sinus Congestion, Sinus Drainage Cardiovascular: Denies: Chest Pain, Palpitations Respiratory: Denies: Cough, Shortness of breath at rest, Sputum production Gastrointestinal: Denies: Abdominal Pain, Nausea, Vomiting Genitourinary: Denies: Dysuria Musculoskeletal: Reports: Joint Pain, Joint Tenderness Skin: Denies: Rash, Wounds Neurological: Denies: Numbness, Tingling, Focal weakness Psychiatric: Denies: Anxiety, Depression, Homicidal Ideations, Suicidal Ideations Hematologic/ Lymphatic: Denies: Easy Bruising, Easy Bleeding VTE Information - Inpt Only VTE Present on Admission: No VTE Mechan Device Prophylaxis: SCD's VTE Pharm Prophylaxis ordered?: No Patient Problems: Active and Suspected Problems Infection of right knee (Acute) Septic joint (Acute) - Physical Exam Vitals/I&O's: Vital Signs Temp Pulse Resp BP Pulse Ox 98.5 F 78 18 140/75 H 94 01/27/19 19:00 01/27/19 19:00 01/27/19 19:00 01/27/19 19:00 01/27/19 19:00 Oxygen Delivery Method Room Air Weight: 113.398 kg Body Mass Index (BMI) 42.9 Finger Stick Blood Glucose 139 General: Alert, Oriented x3, Cooperative HEENT: Atraumatic, PERRLA, EOMI, Normocephalic Neck: Supple, No JVD, Negative Carotid Bruits Lungs: Clear to auscultation, Normal air movement Cardiovascular: Regular rate, No murmurs Abdomen: Bowel Sounds Present, Soft, Non Tender Extremities: Capillary Refill Less than 3 Seconds, Edema - Right leg Skin: No rashes, - - Swelling; mild erythema and severe tenderness of right knee Musculoskeletal: No Tenderness to Palpation of Joints or Extremities, Tenderness - Right knee Neurological: Cranial nerves II-XII grossly intact Psych/Mental Status: Normal Affect, Appropriate Laboratory Results 01/27/19 17:34: Sodium 140, Potassium 3.7, Chloride 105, Carbon Dioxide 29.0, Anion Gap 6, BUN 14, Creatinine 0.73, Estim Creat Clear Calc 72.54, Est GFR (MDRD) Af Amer 105, Est GFR (MDRD) Non-Af 87, BUN/Creatinine Ratio 19.1, Glucose 98, Calcium 9.2 01/27/19 17:34: WBC 10.7, RBC 4.84, Hgb 13.3, Hct 41.5, MCV 85.7, MCH 27.5, MCHC 32.0, RDW Std Deviation 45.2 H, RDW Coeff of Sergio 14.5, Plt Count 350, MPV 9.1, Immature Gran % (Auto) 0.600, Neut % (Auto) 74.2 H, Lymph % (Auto) 16.7 L, [place] % (Auto) 6.5, Eos % (Auto) 1.3, Baso % (Auto) 0.7, Absolute Neuts (auto) 7.9 H, Absolute Lymphs (auto) 1.79, Nucleated RBC % 0 01/27/19 17:34: ESR 89 H 01/27/19 17:34: C-React Prot Ext Range 95.30 H Assessment/Plan All Active Problems Infection of right knee (Acute) Septic joint (Acute) The patient is a 58 year old F with a significant history of diabetes mellitus;Graves' disease; hypertension; depression; anxiety; and bilateral knee replacement with previous history of septic joint with antibiotic treatment for one year who presented to the emergency department with right knee swelling; erythema and tenderness of the right knee as low-grade fever; elevated CRP and elevated ESR consistent with likely septic arthritis of the right knee.. Probable septic arthritis of the right knee prosthetic joint Noted to have elevated ESR and CRP. We will start patient on vancomycin and Zosyn. Will consult infectious disease and orthopedic surgery. Trend CBC and BMP Oxycodone for moderate pain; morphine IV for severe pain. PRN Zofran ordered. We will keep n.p.o. after midnight for possible surgery. Patient is medically stable for moderate risk surgery. Depression anxiety Effexor continued Restless leg Mirapex continued GERD Prilosec continued Hypertension Presentation her blood pressure was not within goal. Lisinopril continued Trend blood pressure and adjust blood pressure medication Rheumatoid arthritis and osteoarthritis Plaquenil continued Neuropathy Neurontin continued DVT prophylaxis SCD ordered Code Visit Inpatient E&M: [id number] Init Hosp L3
[2019-01-27 20:25] VITALS: BP 116/62; PULSE 79; RESP 16; TEMP 36.9; O2SAT 96
[2019-01-27 20:47] VITALS: BMI 44.8
[2019-01-27 21:15] VITALS: BP 105/59; PULSE 76; RESP 16; TEMP 37.1; O2SAT 96
[2019-01-27] MEDS: Lactated Ringers 1,000 ML 75 ML IV (21:58)
[2019-01-27] MEDS: 0.9% Saline Lock 10 ML Syringe IV (21:59)
[2019-01-27] MEDS: Morphine 2 MG/ML Syringe IV (22:07)
[2019-01-27] MEDS: Gabapentin 600 MG Tablet 1200 MG PO (22:39)
[2019-01-27] MEDS: Pramipexole Di-HCl 1 MG Tablet 3 MG PO (22:39)
[2019-01-27] MEDS: Venlafaxine XR 150 MG Capsule PO (22:49)
[2019-01-27] MEDS: Venlafaxine XR 75 MG Capsule PO (22:49)
[2019-01-28] VITALS (13 sets, daily range): BP systolic 106–142; BP diastolic 60–84; PULSE 68–78; RESP 14–20; TEMP 36.7–37.1; O2SAT 88–100
[2019-01-28 00:10] LABS: Bedside Glucose 122 mg/dL (70-110)
--- NOTE | 2019-01-28 00:31 | PCM.RX.CS ---
Consult Pharmacy has been consulted to manage selected antiobiotic: Vancomycin Type of Consult: New start Suspected Infection: Skin/Soft tissue Labs: Sodium 140 mmol/L (136-145) 01/27/19 17:34 Potassium 3.7 mmol/L (3.5-5.1) 01/27/19 17:34 Chloride 105 mmol/L (98-107) 01/27/19 17:34 Carbon Dioxide 29.0 mmol/L (21.0-32.0) 01/27/19 17:34 Anion Gap 6 (5-15) 01/27/19 17:34 BUN 14 mg/dL (7-18) 01/27/19 17:34 Creatinine 0.73 mg/dL (0.55-1.02) 01/27/19 17:34 Est GFR (MDRD) Af Amer 105 mL/min (>60) 01/27/19 17:34 Est GFR (MDRD) Non-Af 87 mL/min (>60) 01/27/19 17:34 BUN/Creatinine Ratio 19.1 RATIO (-20) 01/27/19 17:34 Glucose 98 mg/dL (74-106) 01/27/19 17:34 Weight used for dosin.5 kg Estimated Creatinine Clearance: 106.38 Goal Trough: 15-20 mcg/mL Pharmacy Plan for Drug Dosing: Pharmacy Service will continue to monitor and adjust dosing as required. Medications Vancomycin IV Pharmacy to Dose (2,000 ea/ Sodium Chloride) 500 mls @ 250 mls/hr IV Q12 PRN; Protocol Vancomycin HCl 1,500 mg/ (Sodium Chloride) 530 mls @ 250 mls/hr IV Q8H JERICA Follow-Up Labs: Trough Vancomycin Labs to be done on [date and time ordered]: 01/29 @ [id number]
[2019-01-28] MEDS: Morphine 2 MG/ML Syringe IV ×3 (03:03→16:54)
--- NOTE | 2019-01-28 05:43 | EKG12_ITS ---
Test Reason : PREOP Blood Pressure : / mmHG Vent. Rate : 073 BPM Atrial Rate : 073 BPM P-R Int : 166 ms QRS Dur : 092 ms QT Int : 416 ms P-R-T Axes : 047 021 036 degrees QTc Int : 458 ms Normal sinus rhythm Low voltage QRS Borderline ECG Confirmed by TRAE BERMAN, CONG ([id number]), deputy editor in chief MOHAMUD NICOLE ([id number]) on 02/01/2019 10:13:00 AM Referred By: Mookie Walls Confirmed By:CONG LARKIN MD
[2019-01-28] MEDS: Levothyroxine 175 MCG Tablet PO (07:24)
--- NOTE | 2019-01-28 07:33 | CON.PCM_ITS ---
Reason for Consult Date of Consultation: 01/28/19 Reason for Consultation: Right total knee infection. Requested by Dr. Walls History of Present Illness: The patient is a 58 year old F history of right total knee replacement in 2011. In January 2017 patient developed acute hematogenous right total knee infection which was taken to the operating room for irrigation debridement with implant retention. At that time gross purulence had been encountered. Patient then received 6 weeks of IV antibiotics followed by 1 year of oral antibiotics. She was seen at her one-year visit and doing well. She presented 12 days ago to the ER for initial redness in her leg. She was additionally placed on doxycycline but had progressive redness. She was then placed on amoxicillin by the emergency department. She subsequently developed swelling in her right knee. She presented to my office 5 days ago. Initial serologic lab work was consistent with elevated ESR and CRP. Patient return to the office for aspiration. Aspiration was obtained after patient was off antibiotics for 24 hours. Patient was doing well at that time and showing no signs of sepsis. Initial results were consistent with infection. We were obtaining medical clearance for the patient and because she was initially adequately suppressed with the amoxicillin using the amoxicillin for continued suppression. However she called the office yesterday with elevated temperatures and fevers over 100 degrees. She was instructed to go to the emergency department. She presented last night with increased redness and swelling in the knee. At this time due to her sepsis she was admitted to the hospital to the medicine service for clearance for surgery this morning. Patient has large effusion of the knee with associated pain and redness of the extremity. She did also have a second debridement after her last I&D due to slow healing wound. She is also been known to have small ulcerations on her leg which were believed to be the initial cause of her hematogenous infection. Initial cultures were consistent with Streptococcus agalactiae. Past Medical History Past Medical History (Chronic Problems): Chronic Problems History of DVT (deep vein thrombosis) (Chronic) Septic arthritis of knee, right (Chronic) Hx of total knee replacement (Chronic) right Restless leg (Chronic) RENNY (obstructive sleep apnea) (Chronic) Hypothyroidism (Chronic) Diverticulosis of colon without diverticulitis (Chronic) Depression (Chronic) Postphlebitic syndrome with inflammation (Chronic) Lumbar disc disease (Chronic) History of Graves' disease (Chronic) Diabetes mellitus (Chronic) Renal insufficiency (Chronic) Presence of IVC filter (Chronic) Obesity (Chronic) Edema leg (Chronic) Leg swelling (Chronic) DVT of lower extremity (deep venous thrombosis) (Chronic) Allergies hydrocodone bitartrate [From Lortab] Allergy (Intermediate, Verified 01/20/19 16:07) Other lips swell, ataxia etodolac Allergy (Verified 01/20/19 16:07) Unknown misoprostol Allergy (Verified 01/20/19 16:07) Unknown celecoxib Adverse Reaction (Intermediate, Verified 01/20/19 16:07) Other heart palpitations diclofenac [Diclofenac] Adverse Reaction (Mild, Verified 01/20/19 16:07) Abd cramps/diarrhea ketorolac tromethamine [From Toradol] Adverse Reaction (Mild, Verified 01/20/19 16:07) Other balance issues metoclopramide HCl [From Reglan] Adverse Reaction (Mild, Verified 01/20/19 16:07) Other worsens restless leg atorvastatin [From Lipitor] Adverse Reaction (Verified 01/20/19 16:07) Other FACE SPASMS clindamycin Adverse Reaction (Verified 01/20/19 16:07) Mucosal lesions Home Medications: Ambulatory Orders Medication Instructions Recorded Levothyroxine [Synthroid] 175 mcg PO DAILY 09/01/13 Ranitidine [Zantac] 300 mg PO DAILY 05/17/14 Omeprazole [Prilosec] 20 mg PO DAILY 12/13/16 Cholecalciferol (Vitamin D3) 5,000 unit PO DAILY@1200 01/25/17 [Vitamin D3] [place]-3 Fatty Acids/Fish Oil [Fish 2,000 mg PO DAILY 03/21/18 Oil 1,000 mg Capsule] Gabapentin 1,200 mg PO BID 08/01/18 Gabapentin [Neurontin] 600 mg PO .LUNCHTIME 08/01/18 Hydroxychloroquine [Plaquenil] 200 mg PO BIDCM 08/01/18 Lisinopril [Zestril] 10 mg PO DAILY 08/01/18 Pramipexole Di-HCl [Pramipexole 1.5 tab PO DAILY 08/01/18 Dihydrochloride] Pramipexole Di-HCl [Pramipexole 3 mg PO QHS 08/01/18 Dihydrochloride] Venlafaxine HCl [Effexor Xr] 1 tab PO QHS 08/01/18 Venlafaxine HCl [Venlafaxine HCl 1 tab PO QHS 08/01/18 ER] Amoxicillin [Amoxil] 500 mg PO TID 01/27/19 Surgical History: appendectomy, cholecystectomy, total knee arthroplasty - R total knee prior, tonsillectomy, - - BL thumb surgery. The patient is undergone bilateral total knee replacement surgery. She is undergone cholecystectomy, and subsequently required incisional hernia repair. Lumbar disc surgery was performed early November 2016. The patient is undergone endothermal ablation of superficial veins in the left lower extremity. An IVC filter was placed approximately 5 years ago, and remains in place. The patient is a Ab0. 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 Denies: Weight Change HEENT: Denies: Head Aches, Sinus Congestion, Sinus Drainage Cardiovascular: Denies: Chest Pain, Palpitations Respiratory: Denies: Cough, Shortness of breath at rest, Sputum production Gastrointestinal: Denies: Abdominal Pain, Nausea, Vomiting Genitourinary: Denies: Dysuria Musculoskeletal: Reports: Joint Pain - Right knee pain and swelling, Joint swelling, Joint Tenderness Skin: Denies: Rash, Wounds Neurological: Denies: Numbness, Tingling, Focal weakness Psychiatric: Denies: Anxiety, Depression, Homicidal Ideations, Suicidal I deations Hematologic/ Lymphatic: Denies: Easy Bruising, Easy Bleeding Patient Problems: Active and Suspected Problems Infection of right knee (Acute) Septic joint (Acute) Objective: Previous x-rays from our office have been reviewed showing no gross loosening. - Physical Exam Vitals/I&O's: Vital Signs Temp Pulse Resp BP Pulse Ox 98.7 F 72 18 119/65 94 01/28/19 03:04 01/28/19 03:04 01/28/19 03:04 01/28/19 03:04 01/28/19 03:04 Oxygen Delivery Method Room Air Weight: 261 lb 3.964 oz Body Mass Index (BMI) 44.8 Finger Stick Blood Glucose 139 Intake and Output for Last 24 Hours 01/26/19 01/27/1901/28/19 23:59 23:59 23:59 Intake Total 53.75 / 253.75 790 / 790 Output Total 400 / 400 Balance 53.75 / 253.75 390 / 390 General: Alert, Cooperative HEENT: Atraumatic Extremities: - - right lower extremity: Progressive erythema, massive effusion. Pain with range of motion of the knee. No open sores on the skin. Previous incision is clean dry and intact. Laboratory Results 01/27/19 17:34: Sodium 140, Potassium 3.7, Chloride 105, Carbon Dioxide 29.0, Anion Gap 6, BUN 14, Creatinine 0.73, Estim Creat Clear Calc 72.54, Est GFR (MDRD) Af Amer 105, Est GFR (MDRD) Non-Af 87, BUN/Creatinine Ratio 19.1, Glucose 98, Calcium 9.2 01/27/19 17:34: WBC 10.7, RBC 4.84, Hgb 13.3, Hct 41.5, MCV 85.7, MCH 27.5, MCHC 32.0, RDW Std Deviation 45.2 H, RDW Coeff of Sergio 14.5, Plt Count 350, MPV 9.1, Immature Gran % (Auto) 0.600, Neut % (Auto) 74.2 H, Lymph % (Auto) 16.7 L, [place] % (Auto) 6.5, Eos % (Auto) 1.3, Baso % (Auto) 0.7, Absolute Neuts (auto) 7.9 H, Absolute Lymphs (auto) 1.79, Nucleated RBC % 0 01/27/19 17:34: ESR 89 H 01/27/19 17:34: C-React Prot Ext Range 95.30 H 01/28/19 00:04: POC Glucose 122 H Current Medications Cholecalciferol (Vitamin D) 5,000 unit PO DAILY@1200 JERICA Dextrose (D50w Syringe) 0 gm IV X1 PRN; Protocol PRN Reason: Hypoglycemia Famotidine (Pepcid) 40 mg PO DAILY JERICA Gabapentin (Neurontin) 1,200 mg PO BID [facility] Last Admin: 01/27/19 22:39 Dose: 1,200 mg Documented by: Gabapentin (Neurontin) 600 mg PO LUNCH JERICA Glucagon () 1 mg IM .X1 PRN PRN Reason: Hypoglycemia Hydroxychloroquine Sulfate (Plaquenil) 200 mg PO BIDCM [facility] Lactated Ringer's () 1,000 mls @ 75 mls/hr IV .[id number] [facility] Last Infusion: 01/28/19 00:51 Dose: 75 mls/hr Documented by: Vancomycin IV Pharmacy to Dose (2,000 ea/ Sodium Chloride) 500 mls @ 250 mls/hr IV Q12 PRN; Protocol Piperacillin Sod/Tazobactam (Sod 3.375 gm/ Sodium Chloride) 50 mls @ 12.5 mls/hr IV Q8 [facility] Last Admin: 01/28/19 07:24 Dose: 12.5 mls/hr Documented by: Vancomycin HCl 1,500 mg/ (Sodium Chloride) 530 mls @ 250 mls/hr IV Q8H [facility] Tranexamic Acid 1,000 mg/ (Sodium Chloride) 110 mls @ 440 mls/hr IV X1 ONE Stop: 01/28/19 07:44 Levothyroxine Sodium (Synthroid) 175 mcg PO DAILY@0600 [facility] Last Admin: 01/28/19 07:24 Dose: 175 mcg Documented by: Lisinopril (Zestril) 10 mg PO DAILY [facility] Morphine Sulfate () 2 mg IV Q3H PRN PRN PRN Reason: Pain Score 6-10/10 Last Admin: 01/28/19 03:03 Dose: 2 mg Documented by: Ondansetron HCl (Zofran) 4 mg IV Q8H PRN PRN PRN Reason: NAUSEA/VOMITING Pantoprazole Sodium (Protonix) 20 mg PO DAILY [facility] Pramipexole Dihydrochloride (Mirapex) 3 mg PO QHS [facility] Last Admin: 01/27/19 22:39 Dose: 3 mg Documented by: Pramipexole Dihydrochloride (Mirapex) 1.5 mg PO DAILY [facility] Venlafaxine HCl (Effexor Xr) 75 mg PO QHS [facility] Last Admin: 01/27/19 22:49 Dose: 75 mg Documented by: Venlafaxine HCl (Effexor Xr) 150 mg PO QHS [facility] Last Admin: 01/27/19 22:49 Dose: 150 mg Documented by: Assessment/Plan All Active Problems Infection of right knee (Acute) Septic joint (Acute) Right knee periprosthetic infection. Patient was seen in my office earlier this week. We did discuss that time risks and benefits of the procedure which include but not limited to blood loss, DVTs, PEs, neurovascular damage, infection, general risk of anesthesia include loss of life. Patient understands that recurrence rate of infection after two- stage revision is 10 to 20% based on the literature. Patient has been admitted to the hospital overnight and cleared for surgery. After thorough discussion in the office and here in the hospital today patient understands that the clear path forward for surgery is a two-stage revision which includes removal of the implants today and placement of temporary antibiotic spacer which will allow her need to move. She understands postoperatively she will be with restricted weightbearing initially wear a knee immobilizer. Patient understands will require 6 weeks of antibiotics and then time off the antibiotics to monitor for appropriate clearance of the infection. She understands spacer could be in place for up to an longer than 3 months. She also understands that failure to clear the infection could result in repeat debridements and repeat antibiotic spacers. Due to her sepsis patient is on antibiotics on the floor already. Patient is n.p.o. We will proceed with surgery this morning pending surgical clearance. [facility] Office:
--- NOTE | 2019-01-28 07:35 | PCM.PN.HOSP ---
Patient Problems: Active and Suspected Problems Infection of right knee (Acute) Septic joint (Acute) Subjective: CC follow-up suspected right septic knee Patient is a 58-year-old lady who presented with right knee swelling; an assessment of suspected septic arthritis involving the right knee prosthetic joint made antibiotics initiated per protocol admitted to regular nursing floor with consultation placed to orthopedic surgery Objective: GENERAL: Lethargic after surgery but easily arousable HEENT: Atraumatic; EYES; Anicteric, Normal Conjunctiva NECK; supple, normal thyroid, RESPIRATORY: Diminished to auscultation CARDIOVASCULAR: Regular S1 S2, GI: soft, normoactive bowel sounds, : No Renal angle tenderness; EXTREMITIES: No edema, no clubbing, MUSCULOSKELETAL: Right knee immobilizer and in surgical dressing NEURO: no lateralizing signs. SKIN: No Rash PSYCH; Flat affect Vitals/I&O's: Vital Signs Temp Pulse Resp BP Pulse Ox 98.7 F 72 18 119/65 94 01/28/19 03:04 01/28/19 03:04 01/28/19 03:04 01/28/19 03:04 01/28/19 03:04 Oxygen Delivery Method Room Air Weight: 118.5 kg Body Mass Index (BMI) 44.8 Finger Stick Blood Glucose 139 Intake and Output for Last 24 Hours 01/26/19 01/27/19 01/28/19 23:59 23:59 23:59 Intake Total 53.75 / 253.75 790 / 790 Output Total 400 / 400 Balance 53.75 / 253.75 390 / 390 Laboratory Results 01/27/19 17:34: Sodium 140, Potassium 3.7, Chloride 105, Carbon Dioxide 29.0, Anion Gap 6, BUN 14, Creatinine 0.73, Estim Creat Clear Calc 72.54, Est GFR (MDRD) Af Amer 105, Est GFR (MDRD) Non-Af 87, BUN/Creatinine Ratio 19.1, Glucose 98, Calcium 9.2 01/27/19 17:34: WBC 10.7, RBC 4.84, Hgb 13.3, Hct 41.5, MCV 85.7, MCH 27.5, MCHC 32.0, RDW Std Deviation 45.2 H, RDW Coeff of Sergio 14.5, Plt Count 350, MPV 9.1, Immature Gran % (Auto) 0.600, Neut % (Auto) 74.2 H, Lymph % (Auto) 16.7 L, [place] % (Auto) 6.5, Eos % (Auto) 1.3, Baso % (Auto) 0.7, Absolute Neuts (auto) 7.9 H, Absolute Lymphs (auto) 1.79, Nucleated RBC % 0 01/27/19 17:34: ESR 89 H 01/27/19 17:34: C-React Prot Ext Range 95.30 H 01/28/19 00:04: POC Glucose 122 H Current Medications Cholecalciferol (Vitamin D) 5,000 unit PO DAILY@1200 [facility] Dextrose (D50w Syringe) 0 gm IV X1 PRN; Protocol PRN Reason: Hypoglycemia Famotidine (Pepcid) 40 mg PO DAILY [facility] Gabapentin (Neurontin) 1,200 mg PO BID [facility] Last Admin: 01/27/19 22:39 Dose: 1,200 mg Documented by: Gabapentin (Neurontin) 600 mg PO LUNCH [facility] Glucagon () 1 mg IM .X1 PRN PRN Reason: Hypoglycemia Hydroxychloroquine Sulfate (Plaquenil) 200 mg PO BIDCM [facility] Lactated Ringer's () 1,000 mls @ 75 mls/hr IV .[id number] [facility] Last Infusion: 01/28/19 00:51 Dose: 75 mls/hr Documented by: Vancomycin IV Pharmacy to Dose (2,000 ea/ Sodium Chloride) 500 mls @ 250 mls/hr IV Q12 PRN; Protocol Piperacillin Sod/Tazobactam (Sod 3.375 gm/ Sodium Chloride) 50 mls @ 12.5 mls/hr IV Q8 [facility] Last Admin: 01/28/19 07:24 Dose: 12.5 mls/hr Documented by: Vancomycin HCl 1,500 mg/ (Sodium Chloride) 530 mls @ 250 mls/hr IV Q8H [facility] Tranexamic Acid 1,000 mg/ (Sodium Chloride) 110 mls @ 440 mls/hr IV X1 ONE Stop: 01/28/19 07:44 Levothyroxine Sodium (Synthroid) 175 mcg PO DAILY@0600 [facility] Last Admin: 01/28/19 07:24 Dose: 175 mcg Documented by: Lisinopril (Zestril) 10 mg PO DAILY [facility] Morphine Sulfate () 2 mg IV Q3H PRN PRN PRN Reason: Pain Score 6-10/10 Last Admin: 01/28/19 03:03 Dose: 2 mg Documented by: Ondansetron HCl (Zofran) 4 mg IV Q8H PRN PRN PRN Reason: NAUSEA/VOMITING Pantoprazole Sodium (Protonix) 20 mg PO DAILY [facility] Pramipexole Dihydrochloride (Mirapex) 3 mg PO QHS [facility] Last Admin: 01/27/19 22:39 Dose: 3 mg Documented by: Pramipexole Dihydrochloride (Mirapex) 1.5 mg PO DAILY [facility] Venlafaxine HCl (Effexor Xr) 75 mg PO QHS [facility] Last Admin: 01/27/19 22:49 Dose: 75 mg Documented by: Venlafaxine HCl (Effexor Xr) 150 mg PO QHS [facility] Last Admin: 01/27/19 22:49 Dose: 150 mg Documented by: Medical Necessity - Tobacco Use Smoking Status: Former smoker Tobacco Use: Cigarettes Assessment/Plan All Active Problems Infection of right knee (Acute) Septic joint (Acute) Patient is a 58-year-old lady who presented with right knee swelling; an assessment of suspected septic arthritis involving the right knee prosthetic joint made antibiotics initiated per protocol admitted to regular nursing floor with consultation placed to orthopedic surgery 1. 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 Placement of nonbiodegradable antibiotic delivery system to Dr. Barton 2. Hypertension ~ blood pressure controlled, home medications continued with dose adjustment as needed 3. Rheumatoid arthritis ~patient is on Plaquenil did continue 4. Generalized osteoarthritis ~pain meds as needed 5. Depression with anxiety ~patient is on SSRI 6. Restless leg syndrome ~patient is on Mirapex did continue 10. Peripheral neuropathy ~patient is on gabapentin 8. DVT prophylaxis ~Rivaroxaban starting 01/29/2019 Clinical Impression(s) from Imaging Studies Venous Duplex 01/27/19 18:39 IMPRESSION: No evidence of deep venous thrombosis of the right lower extremity. Probable Santiago's cyst of the popliteal fossa. Electronically Signed: Gary Andrea MD at 19:45 EDT , Service support , F Code Visit Inpatient E&M: 27698 Subs Hosp L2
[2019-01-28 07:58] LABS: Absolute Lymphocyte Count 1.31 X10^3/uL (0.83-4.51); Absolute Neutrophil Count 5.9 X10^3/uL (2.0-7.7); Basophil# 0.04 X10^3/uL; Basophil% 0.5 % (0-1); Eosinophil# 0.09 X10^3/uL; Eosinophils% 1.1 % (0-5); Hematocrit 37.3 % (37-47); Hemoglobin 11.6 g/dL (12.0-15.0); Lymphocyte # 1.31 X10^3/ul (4.0); Lymphocyte % 16.3 % (19-41); Mean Corp Hgb Conc 31.1 g/dL (32-36); Mean Corpuscular Volume 86.9 fL (81-99); Monocyte# 0.61 X10^3/uL; Monocyte% 7.6 % (0-10); NRBC Flagged by Analyzer 0 % (0-5); Neutrophil # 5.93 X10^3/uL (2.7-7.7); Platelet Count 279 K/mm3 (150-450); RBC Distribution Width CV 14.6 % (11.6-14.6); RBC Distribution Width SD 46.8 fl (35.1-43.9); Red Blood Count 4.29 M/mm3 (4.2-5.4)
--- NOTE | 2019-01-28 08:05 | NURSING ---
0800 report given to Debbie in OR. made her aware abx is not available on the floor.
[2019-01-28 08:26] LABS: Anion Gap 3 (5-15); BUN 14 mg/dL (7-18); BUN/Creat Ratio 22.2 RATIO (10-20); Calcium,Total 8.4 mg/dL (8.5-10.1); Chloride 107 mmol/L (98-107); Creatinine, Serum 0.63 mg/dL (0.55-1.02); EST Glomerular Filtration Rate 103 mL/min (>60); Est Glom Filt Rate - Afr Amer 124 mL/min (>60); Estimated Creatinine Clearance 84.05 ml/min; Glucose 90 mg/dL (74-106); Potassium 3.7 mmol/L (3.5-5.1); Sodium Level 141 mmol/L (136-145); Thyroid Stim Hormone (TSH) 1.16 uIU/mL (0.358-3.74)
--- NOTE | 2019-01-28 08:35 | CASEMGMT ---
RN CM attempted to see patient for RN CM Face to Face assessment. Patient is currently in surgery. CM will attempt to see patient at later time.
[2019-01-28] MEDS: Vancomycin IV 1,000 MG/20 ML Vial 6000 MG OPERA.SITE (09:26)
[2019-01-28] MEDS: Cefazolin 1 GM/5 ML Vial 2 GM OPERA.SITE (09:27)
[2019-01-28] MEDS: Lactated Ringers 1,000 ML 75 ML IV ×2 (09:30→12:45)
--- NOTE | 2019-01-28 10:29 | PCA ---
pt off floor
--- NOTE | 2019-01-28 10:59 | RAD_ITS ---
STUDY: X-RAY - RIGHT KNEE REASON FOR EXAM: Female, 58 years old. Knee replacement TECHNIQUE: 2 view(s) of the knee. COMPARISON: 01/25/2017 FINDINGS: Interval revision of the replacement. Drainage catheter, skin dilip and air compatible with recent surgery. The tibial component has been removed. Radiopaque density of the femur and tibia shafts also new. Mild soft tissue edema. RAD/Knee 1 or 2 Views IMPRESSION: Gross alignment following revision of knee replacement. Expected operative changes. Soft tissue edema. No destructive bony process. Electronically Signed: Danilo Sullivan MD (Brooks) at 15:44 EDT , Service support ,
--- NOTE | 2019-01-28 11:02 | OP.PCM_ITS ---
Report of Operation Date of Procedure: 01/28/19 Pre-Operative Diagnosis: Right knee periprosthetic joint infection Post-Operative Diagnosis: Right knee periprosthetic joint infection Surgery/Procedure Performed:: Removal of total knee replacement placement articulating antibiotic spacer. Placement of nonbiodegradable antibiotic delivery system Description of Surgical Findings:: There was gross purulence upon entering the joint. Patient had previous rent in the superior arthrotomy. web content director: Jimmy Ricketts Type of Anesthesia:: General Anesthesiologist: Stanford De Luna Special Medications: Patient was receiving Vanc & Zosyn on the floor. 6 g of vancomycin, 4.8 g tobramycin and 2 g of Ancef was mixed into the cement. Not all the cement was used as excess cement was removed after cementing Specimen's removed: 3 separate specimens were sent to microbiology. Estimated Blood Loss (mL): 350 Fluids Replaced: 2500 mL crystalloid Description of Procedure: Implants used: Jose E triathlon size 5 CR knee, 11 mm #4 CR poly Brief history operative indications: 58-year-old female who had total knee replacement on the right in 2011. In 2017 she had skin sores with subsequent acute hematogenous joint infection. She had irrigation debridement with retention of implants. She had strep agalactiae at that time. Patient developed redness of the extremity. She was placed on antibiotics and then showed up in my office with swelling and pain in the knee. Aspiration was consistent with infection. Cultures this morning grew out staph aureus. We elected to proceed with irrigation debridement, explant and placement of antibiotic spacer with staged revision. Risks and benefits of the procedure were discussed the patient as noted in the consultation. Procedure: On the date of procedure patient's right lower extremity was marked in the preoperative area. The patient was then taken back to the operating room where the patient was placed on the table in the supine position. All bony prominences were identified a well-padded. Anesthesia assumed control of the C-spine and airway and remained controlled throughout the remainder of the procedure. A tourniquet was placed on the right upper thigh and the leg was prepped in a sterile fashion. The surgeon then scrubbed at this time. Upon reentering the room right lower extremity was draped in a standard orthopedic fashion. A timeout was then called and everyone agreed upon the side, the site, the procedure to be performed, patient's identity and antibiotics given. An Esmarch bandage was used to exsanguinate the extremity and the tourniquet was placed up to 250 mmHg with the knee in flexion. A midline skin incision was made using the previous incision and extending it proximally and distally to identify normal tissue planes. Medial and lateral flaps were developed appropriate releases. The standard medial parapatellar arthrotomy was made and the patella was subluxed laterally. At this time an aggressive synovectomy was performed re-creating the medial gutter first, then the suprapatellar pouch than the lateral gutter. Once this was completed the knee was flexed up an osteotome was used to remove the tibial polyethylene. The remainder of the synovium was debrided. The standard deep MCL release was done and the patella scar pad was resected and lateral releases were performed. Next our attention was directed to the femur. Wear flexible osteotomes and TPS saw were used to break up the implant bone interface. This was done both medially and laterally. After this is adequately lucent bone tamp was used to remove the femur component from the end of the bone. This was done with minimal bone loss. At this time attention was now directed towards the proximal tibia. The screws were removed using a large frag screwdriver from the press-fit implant. Osteotome and TPS saw were then used to break up the proximal tibia implant interface and stacked osteotomes were used to remove the tibial implant. Once this was done it was evident with patient's previous stemmed implants she did have some significant metaphyseal bone loss which would need cones at the next vision. At this time we focused on the bone ends sclerotic bone was removed and a cleanup cut was made on the tibia. We then focused down each canal first the femur we used osteotomes and a drill to remove the central cement mantle from the canal. Once this was completed we removed the membrane from the femur. Part of this membrane was sent for culture. Next our attention was directed at the tibia. We again focused on the canal. Both canals were then reamed out with a 15 mm reamer to finish the debridement. We then focused our attention on the bone ends. Any residual cement was removed and the bone ends using a rondure and bur. Knee was then placed in extension and the remainder of the posterior knee was debrided. We then everted the patella where a TPS saw was used to separate the bone cement interface and remove the patella component. Bur was then used to remove the patella pegs. Once this was done tourniquet was let down and hemostasis was obtained using a aqua mantis. 6 L of normal saline with a irrigated throughout the wound under low-pressure lavage while cement dowels with antibiotics were mixed on the back table. We used the 15 mm reamer to do the appropriate size. These were allowed to cure on the back table. Once the wound was adequately debrided and irrigated out we then placed a size 5 femur on the end of the femur and size her polyethylene which was 13 mm polyethylene. Final components were opened and the size 4, 11mm polyethylene was turned over in the back was scored using a bur. Once was done the second batch of antibiotic laden cement was mixed. The cement was used to fill the bone defects and the tibia was cemented into place first. Femoral component was then cemented into place and the knee was placed in extension. The cement was allowed to cure. Chlorhexidine lavage was then used to lavage of the joint. This was followed by normal saline. Drain was placed laterally. Wound was closed using #1 Vicryl suture running the arthrotomy after initially closing a previous rent in the arthrotomy with interrupted sutures. Final skin closure was done with 2-0 Vicryl final skin closure was done with dilip. A sterile compressive dressing was then placed. Patient was placed in a knee immobilizer the patient was then awakened from anesthesia, transferred to the [facility] and transferred to the PACU for recovery. Post op plan DVT ppx: Xarelto, thigh high compression stockings Follow up: in office in 2 weeks for wound check and to begin range of motion PT: to start POD #0 at hospital, toe-touch weightbearing for 2 weeks followed by 80% partial weightbearing Infection: Patient will be started on antibiotics postoperatively. Infectious disease will be consulted. She will receive 6 weeks of IV antibiotics followed by a antibiotic holiday and eventually revision knee replacement. My physician assistant corporation counsel was a vital part of this case. He was important in appropriate retraction during the case, and protection of soft tissues during bony cuts. His intimate knowledge of the case and my steps aided in safe and expedient completion of the procedure as well as appropriate position of the leg during the case. He was also vital in assisting with closure under my direct supervision. Grafts/Implants Used: Saygus size 5 CR triathlon knee and size 411 mm CR poly- - Complications No intraoperative complications - Admit VTE Documentation VTE Present on Admission: No VTE Mechan Device Prophylaxis: SCD's, Thigh High BLANCA Hose VTE Pharm Prophylaxis ordered?: Yes
--- NOTE | 2019-01-28 11:09 | PCA ---
pt off floor
[2019-01-28 12:40] LABS: Bedside Glucose 112 mg/dL (70-110)
[2019-01-28] MEDS: 0.9% Saline Lock 10 ML Syringe IV ×4 (13:25→16:54)
[2019-01-28] MEDS: oxyCODONE 5 MG Tablet PO ×2 (13:31→19:24)
[2019-01-28] MEDS: Acetaminophen 500 MG Tablet 1000 MG PO ×2 (14:49→22:11)
[2019-01-28] MEDS: Ketorolac 15 MG/ML Vial IV (15:55)
[2019-01-28 17:16] LABS: Bedside Glucose 142 mg/dL (70-110)
--- NOTE | 2019-01-28 17:35 | NURSING ---
Dangled at edge of bed. Assisted onto bsc at this time since pt has not voided post op.
[2019-01-28] MEDS: Hydroxychloroquine 200 MG Tablet PO (18:03)
[2019-01-28] MEDS: Ensure Surgery 237 ML LIQUID PO (18:03)
[2019-01-28] MEDS: Pramipexole Di-HCl 1 MG Tablet 3 MG PO (18:11)
[2019-01-28] MEDS: Gabapentin 600 MG Tablet 1200 MG PO (22:10)
[2019-01-28] MEDS: Senna/Docusate Sodium 1 Tablet 2 TABLET PO (22:10)
[2019-01-29] MEDS: oxyCODONE 5 MG Tablet PO ×3 (01:59→18:56)
[2019-01-29] MEDS: Lactated Ringers 1,000 ML 75 ML IV ×2 (02:00→22:40)
[2019-01-29 04:06] VITALS: BP 130/58; PULSE 77; RESP 16; TEMP 37.1; O2SAT 93
[2019-01-29] MEDS: Levothyroxine 175 MCG Tablet PO (05:29)
[2019-01-29] MEDS: Rivaroxaban 10 MG Tablet PO (05:29)
[2019-01-29] MEDS: Acetaminophen 500 MG Tablet 1000 MG PO ×3 (05:29→22:39)
[2019-01-29 06:50] LABS: Hematocrit 34.9 % (37-47); Hemoglobin 10.6 g/dL (12.0-15.0); Mean Corp Hgb Conc 30.4 g/dL (32-36); Mean Corpuscular Hgb 26.8 pg (27.0-32.0); Mean Corpuscular Volume 88.1 fL (81-99); Mean Platelet Vol. 9.8 fl (6.2-12.0); Platelet Count 255 K/mm3 (150-450); RBC Distribution Width CV 14.6 % (11.6-14.6); RBC Distribution Width SD 47.4 fl (35.1-43.9); Red Blood Count 3.96 M/mm3 (4.2-5.4)
[2019-01-29 07:13] LABS: Anion Gap 3 (5-15); BUN 13 mg/dL (7-18); BUN/Creat Ratio 18.5 RATIO (10-20); Calcium,Total 8.3 mg/dL (8.5-10.1); Chloride 106 mmol/L (98-107); EST Glomerular Filtration Rate 91 mL/min (>60); Est Glom Filt Rate - Afr Amer 110 mL/min (>60); Estimated Creatinine Clearance 75.65 ml/min; Glucose 118 mg/dL (74-106); Potassium 3.7 mmol/L (3.5-5.1); Sodium Level 139 mmol/L (136-145)
--- NOTE | 2019-01-29 07:36 | PN_ITS ---
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 Cultures sent results pending seen this a.m. patient still has some discomfort rated the pain 6 out of 10. Objective: GENERAL: Cooperative HEENT: Atraumatic; EYES; Anicteric, Normal Conjunctiva NECK; supple, normal thyroid, RESPIRATORY: Diminished to auscultation CARDIOVASCULAR: Regular S1 S2, GI: soft, normoactive bowel sounds, : No Renal angle tenderness; EXTREMITIES: No edema, no clubbing, MUSCULOSKELETAL: Right knee immobilizer and in surgical dressing NEURO: no lateralizing signs. SKIN: No Rash PSYCH; Flat affect Vitals/I&O's: Vital Signs Temp Pulse Resp BP Pulse Ox 98.8 F 77 16 130/58 H 93 01/29/19 04:06 01/29/19 04:06 01/29/19 04:06 01/29/19 04:06 01/29/19 04:06 Oxygen Flow Rate (L/min) 3 Oxygen Delivery Method CPAP Weight: 118.5 kg Body Mass Index (BMI) 44.8 Finger Stick Blood Glucose 112 Intake and Output for Last 24 Hours 01/27/19 01/28/19 01/29/19 23:59 23:59 23:59 Intake Total 53.75 / 253.75 5340.25 / 5340.25 1162.5 / 1162.5 Output Total 600 / 600 750 / 750 Balance 53.75 / 253.75 4740.25 / 4740.25 412.5 / 412.5 Microbiology Past 72 Hours 01/28/19 Unknown Tissue - Knee Gram Stain - Final 01/28/19 Unknown Tissue - Knee Gram Stain - Final 01/28/19 Unknown Tissue - Knee Gram Stain - Final Laboratory Results 01/28/19 07:39: WBC 8.0, RBC 4.29, Hgb 11.6 L, Hct 37.3, MCV 86.9, MCH 27.0, MCHC 31.1 L, RDW Std Deviation 46.8 H, RDW Coeff of Sergio 14.6, Plt Count 279, MPV 9.0, Immature Gran % (Auto) 0.500, Neut % (Auto) 74.0 H, Lymph % (Auto) 16.3 L, Fleming % (Auto) 7.6, Eos % (Auto) 1.1, Baso % (Auto) 0.5, Absolute Neuts (auto) 5.9, Absolute Lymphs (auto) 1.31, Nucleated RBC % 0 01/28/19 07:39: Sodium 141, Potassium 3.7, Chloride 107, Carbon Dioxide 31.0, Anion Gap 3 L, BUN 14, Creatinine 0.63, Estim Creat Clear Calc 84.05, Est GFR (MDRD) Af Amer 124, Est GFR (MDRD) Non-Af 103, BUN/Creatinine Ratio 22.2 H, Glucose 90, Calcium 8.4 L, TSH 1.16 01/28/19 12:35: POC Glucose 112 H 01/28/19 16:53: POC Glucose 142 H 01/29/19 06:12: WBC 11.0, RBC 3.96 L, Hgb 10.6 L, Hct 34.9 L, MCV 88.1, MCH 26.8 L, MCHC 30.4 L, RDW Std Deviation 47.4 H, RDW Coeff of Sergio 14.6, Plt Count 255, MPV 9.8 01/29/19 06:12: Sodium 139, Potassium 3.7, Chloride 106, Carbon Dioxide 30.0, Anion Gap 3 L, BUN 13, Creatinine 0.70, Estim Creat Clear Calc 75.65, Est GFR (MDRD) Af Amer 110, Est GFR (MDRD) Non-Af 91, BUN/Creatinine Ratio 18.5, Glucose 118 H, Calcium 8.3 L Current Medications Acetaminophen (Tylenol) 1,000 mg PO Q8 [facility] Last Admin: 01/29/19 05:29 Dose: 1,000 mg Documented by: Cholecalciferol (Vitamin D) 5,000 unit PO DAILY@1200 [facility] Last Admin: 01/28/19 13:54 Dose: Not Given Documented by: Dextrose (D50w Syringe) 0 gm IV X1 PRN; Protocol PRN Reason: Hypoglycemia Enteral Nutritional Formula (Ensure Surgery) 237 ml PO TIDCM [facility] Last Admin: 01/28/19 18:03 Dose: 237 ml Documented by: Famotidine (Pepcid) 40 mg PO DAILY [facility] Last Admin: 01/28/19 13:52 Dose: Not Given Documented by: Gabapentin (Neurontin) 1,200 mg PO BID [facility] Last Admin: 01/28/19 22:10 Dose: 1,200 mg Documented by: Gabapentin (Neurontin) 600 mg PO LUNCH [facility] Last Admin: 01/28/19 13:54 Dose: Not Given Documented by: Glucagon () 1 mg IM .X1 PRN PRN Reason: Hypoglycemia Hydroxychloroquine Sulfate (Plaquenil) 200 mg PO BIDCM [facility] Last Admin: 01/28/19 18:03 Dose: 200 mg Documented by: Lactated Ringer's () 1,000 mls @ 75 mls/hr IV .[id number] [facility] Last Infusion: 01/29/19 05:30 Dose: 0 mls/hr Documented by: Vancomycin IV Pharmacy to Dose (2,000 ea/ Sodium Chloride) 500 mls @ 250 mls/hr IV Q12 PRN; Protocol Piperacillin Sod/Tazobactam (Sod 3.375 gm/ Sodium Chloride) 50 mls @ 12.5 mls/hr IV Q8 [facility] Last Admin: 01/29/19 05:29 Dose: 12.5 mls/hr Documented by: Vancomycin HCl 1,500 mg/ (Sodium Chloride) 530 mls @ 250 mls/hr IV Q8H [facility] Last Admin: 01/29/19 05:28 Dose: 250 mls/hr Documented by: Sodium Chloride () 250 mls @ 15 mls/hr IV .[id number] PRN PRN Reason: Saline Flush Last Infusion: 01/29/19 05:30 Dose: 0 mls/hr Documented by: Ketorolac Tromethamine (Toradol) 15 mg IV Q6H PRN PRN PRN Reason: Pain Score 1-5/10 Stop: 01/30/19 10:59 Last Admin: 01/28/19 15:55 Dose: 15 mg Documented by: Levothyroxine Sodium (Synthroid) 175 mcg PO DAILY@0600 [facility] Last Admin: 01/29/19 05:29 Dose: 175 mcg Documented by: Lisinopril (Zestril) 10 mg PO DAILY [facility] Last Admin: 01/28/19 13:53 Dose: Not Given Documented by: Morphine Sulfate () 2 mg IV Q3H PRN PRN PRN Reason: Pain Score 6-10/10 Last Admin: 01/28/19 16:54 Dose: 2 mg Documented by: Ondansetron HCl (Zofran) 4 mg IV Q8H PRN PRN PRN Reason: NAUSEA/VOMITING Oxycodone HCl (Oxyir) 5 - 10 mg PO Q4H PRN PRN PRN Reason: Pain Score 4-10/10 Last Admin: 01/29/19 07:00 Dose: 10 mg Documented by: Pantoprazole Sodium (Protonix) 20 mg PO DAILY [facility] Last Admin: 01/28/19 13:53 Dose: Not Given Documented by: Pramipexole Dihydrochloride (Mirapex) 3 mg PO QHS [facility] Last Admin: 01/28/19 18:11 Dose: 3 mg Documented by: Pramipexole Dihydrochloride (Mirapex) 1.5 mg PO DAILY [facility] Last Admin: 01/28/19 13:52 Dose: Not Given Documented by: Promethazine HCl (Phenergan) 12.5 mg IM Q6H PRN PRN; Protocol PRN Reason: NAUSEA/VOMITING Rivaroxaban (Xarelto) 10 mg PO DAILY@0600 [facility] Last Admin: 01/29/19 05:29 Dose: 10 mg Documented by: Senna/Docusate Sodium (Senokot-S, Aileen-Colace) 2 tablet PO BID [facility] Last Admin: 01/28/19 22:10 Dose: 2 tablet Documented by: Sodium Chloride () 10 - 40 ml IV UD PRN PRN Reason: SALINE FLUSH Last Admin: 01/28/19 16:54 Dose: 10 ml Documented by: Venlafaxine HCl (Effexor Xr) 75 mg PO QHS [facility] Last Admin: 01/27/19 22:49 Dose: 75 mg Documented by: Venlafaxine HCl (Effexor Xr) 150 mg PO QHS [facility] Last Admin: 01/27/19 22:49 Dose: 150 mg Documented by: STROKE Vital Signs/Narrative: Vital Signs Temp Pulse Resp BP Pulse Ox 01/29/19 04:06 98.8 F 77 16 130/58 H 93 Medical Necessity - Tobacco Use Smoking Status: Former smoker Tobacco Use: Cigarettes Assessment/Plan All Active Problems Infection of right knee (Acute) Septic joint (Acute) Patient is a 58-year-old lady who presented with right knee swelling; an assessment of suspected septic arthritis involving the right knee prosthetic joint made antibiotics initiated per protocol admitted to regular nursing floor with consultation placed to orthopedic surgery 1. 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 Placement of nonbiodegradable antibiotic delivery system to Dr. Barton ?01/29/2019: Postoperative day 1, patient underwent incision and drainage by orthopedic surgery the day prior. Cultures sent results pending seen this a.m. patient still has some discomfort rated the pain 6 out of 10.. Currently on vancomycin and Zosyn consult placed to infectious disease 2. Hypertension ~ blood pressure controlled, home medications continued with dose adjustment as needed 3. Rheumatoid arthritis ~patient is on Plaquenil did continue 4. Generalized osteoarthritis ~pain meds as needed 5. Depression with anxiety ~patient is on SSRI 6. Restless leg syndrome ~patient is on Mirapex did continue 10. Peripheral neuropathy ~patient is on gabapentin 8. DVT prophylaxis ~Rivaroxaban starting 01/29/2019 Active Medications Acetaminophen (Tylenol) 1,000 mg PO Q8 [facility] Last Admin: 01/29/19 05:29 Dose: 1,000 mg Documented by: Cholecalciferol (Vitamin D) 5,000 unit PO DAILY@1200 [facility] Last Admin: 01/28/19 13:54 Dose: Not Given Documented by: Dextrose (D50w Syringe) 0 gm IV X1 PRN; Protocol PRN Reason: Hypoglycemia Enteral Nutritional Formula (Ensure Surgery) 237 ml PO TIDCM [facility] Last Admin: 01/28/19 18:03 Dose: 237 ml Documented by: Famotidine (Pepcid) 40 mg PO DAILY [facility] Last Admin: 01/28/19 13:52 Dose: Not Given Documented by: Gabapentin (Neurontin) 1,200 mg PO BID [facility] Last Admin: 01/28/19 22:10 Dose: 1,200 mg Documented by: Gabapentin (Neurontin) 600 mg PO LUNCH [facility] Last Admin: 01/28/19 13:54 Dose: Not Given Documented by: Glucagon () 1 mg IM .X1 PRN PRN Reason: Hypoglycemia Hydroxychloroquine Sulfate (Plaquenil) 200 mg PO BIDCM [facility] Last Admin: 01/28/19 18:03 Dose: 200 mg Documented by: Lactated Ringer's () 1,000 mls @ 75 mls/hr IV .[id number] [facility] Last Infusion: 01/29/19 07:41 Dose: 75 mls/hr Documented by: Vancomycin IV Pharmacy to Dose (2,000 ea/ Sodium Chloride) 500 mls @ 250 mls/hr IV Q12 PRN; Protocol Piperacillin Sod/Tazobactam (Sod 3.375 gm/ Sodium Chloride) 50 mls @ 12.5 mls/hr IV Q8 [facility] Last Admin: 01/29/19 05:29 Dose: 12.5 mls/hr Documented by: Vancomycin HCl 1,500 mg/ (Sodium Chloride) 530 mls @ 250 mls/hr IV Q8H [facility] Last Infusion: 01/29/19 07:41 Dose: Infused Documented by: Sodium Chloride () 250 mls @ 15 mls/hr IV .[id number] PRN PRN Reason: Saline Flush Last Infusion: 01/29/19 05:30 Dose: 0 mls/hr Documented by: Ketorolac Tromethamine (Toradol) 15 mg IV Q6H PRN PRN PRN Reason: Pain Score 1-5/10 Stop: 01/30/19 10:59 Last Admin: 01/28/19 15:55 Dose: 15 mg Documented by: Levothyroxine Sodium (Synthroid) 175 mcg PO DAILY@0600 [facility] Last Admin: 01/29/19 05:29 Dose: 175 mcg Documented by: Lisinopril (Zestril) 10 mg PO DAILY [facility] Last Admin: 01/28/19 13:53 Dose: Not Given Documented by: Morphine Sulfate () 2 mg IV Q3H PRN PRN PRN Reason: Pain Score 6-10/10 Last Admin: 01/28/19 16:54 Dose: 2 mg Documented by: Ondansetron HCl (Zofran) 4 mg IV Q8H PRN PRN PRN Reason: NAUSEA/VOMITING Oxycodone HCl (Oxyir) 5 - 10 mg PO Q4H PRN PRN PRN Reason: Pain Score 4-10/10 Last Admin: 01/29/19 07:00 Dose: 10 mg Documented by: Pantoprazole Sodium (Protonix) 20 mg PO DAILY [facility] Last Admin: 01/28/19 13:53 Dose: Not Given Documented by: Pramipexole Dihydrochloride (Mirapex) 3 mg PO QHS [facility] Last Admin: 01/28/19 18:11 Dose: 3 mg Documented by: Pramipexole Dihydrochloride (Mirapex) 1.5 mg PO DAILY [facility] Last Admin: 01/28/19 13:52 Dose: Not Given Documented by: Promethazine HCl (Phenergan) 12.5 mg IM Q6H PRN PRN; Protocol PRN Reason: NAUSEA/VOMITING Rivaroxaban (Xarelto) 10 mg PO DAILY@0600 [facility] Last Admin: 01/29/19 05:29 Dose: 10 mg Documented by: Senna/Docusate Sodium (Senokot-S, Aileen-Colace) 2 tablet PO BID [facility] Last Admin: 01/28/19 22:10 Dose: 2 tablet Documented by: Sodium Chloride () 10 - 40 ml IV UD PRN PRN Reason: SALINE FLUSH Last Admin: 01/28/19 16:54 Dose: 10 ml Documented by: Venlafaxine HCl (Effexor Xr) 75 mg PO QHS [facility] Last Admin: 01/27/19 22:49 Dose: 75 mg Documented by: Venlafaxine HCl (Effexor Xr) 150 mg PO QHS [facility] Last Admin: 01/27/19 22:49 Dose: 150 mg Documented by: Code Visit Inpatient E&M: 18132 Subs Hosp L2
--- NOTE | 2019-01-29 08:30 | PN.ORTHO_ITS ---
Patient Problems: Active and Suspected Problems Infection of right knee (Acute) Septic joint (Acute) Subjective: The patient was sitting in bed upon examination. Patient denies any chest pain, shortness of breath, dizziness, lightheadedness, nausea or vomiting, or calf pain. Patient has been requiring nasal O2 postoperatively. She does have history of sleep apnea. She has not been on any home oxygen in the past. Patient does report soreness and pain in the right knee but pain is controlled on medications. No adverse overnight events. Patient does have history of previous blood clot and currently is on Xarelto postoperatively. She has drain placed. Patient did have previous irrigation debridement with retention of implants in which she had strep agalactiae at that time. She was treated with 6 weeks IV antibiotics. Patient did have recent aspiration by Dr. Carlos Barton on January 26, 2019 which cultures grew out positive for Staphylococcus aureus. Objective: Vital signs stable and afebrile. Currently on nasal oxygen Patient is able to plantarflex and dorsiflex actively. Sensation is intact to light touch to saphenous, sural, superficial and deep peroneal, and tibial distribution. Dressing is clean dry and intact. Hemovac drain in place with minimal output in canister. 150 mL have been drained from the canister over the past 24 hours. Swelling is present to the right lower extremity and to the foot. Negative Homans bilaterally, negative signs and symptoms of DVT. - Physical Exam Vitals/I&O's: Vital Signs Temp Pulse Resp BP Pulse Ox 98.8 F 77 16 130/58 H 93 01/29/19 04:06 01/29/19 04:06 01/29/19 04:06 01/29/19 04:06 01/29/19 04:06 Oxygen Flow Rate (L/min) 3 Oxygen Delivery Method CPAP Weight: 118.5 kg Body Mass Index (BMI) 44.8 Finger Stick Blood Glucose 112 Intake and Output for Last 24 Hours 01/27/19 01/28/19 01/29/19 23:59 23:59 23:59 Intake Total 53.75 / 253.75 5340.25 / 5340.25 1692.5 / 1692.5 Output Total 600 / 600 750 / 750 Balance 53.75 / 253.75 4740.25 / 4740.25 942.5 / 942.5 General: Alert, Oriented x3, Cooperative, No apparent distress Microbiology Past 72 Hours 01/28/19 Unknown Tissue - Knee Gram Stain - Final 01/28/19 Unknown Tissue - Knee Gram Stain - Final 01/28/19 Unknown Tissue - Knee Gram Stain - Final Laboratory Results 01/28/19 12:35: POC Glucose 112 H 01/28/19 16:53: POC Glucose 142 H 01/29/19 06:12: WBC 11.0, RBC 3.96 L, Hgb 10.6 L, Hct 34.9 L, MCV 88.1, MCH 26.8 L, MCHC 30.4 L, RDW Std Deviation 47.4 H, RDW Coeff of Sergio 14.6, Plt Count 255, MPV 9.8 01/29/19 06:12: Sodium 139, Potassium 3.7, Chloride 106, Carbon Dioxide 30.0, Anion Gap 3 L, BUN 13, Creatinine 0.70, Estim Creat Clear Calc 75.65, Est GFR (MDRD) Af Amer 110, Est GFR (MDRD) Non-Af 91, BUN/Creatinine Ratio 18.5, Glucose 118 H, Calcium 8.3 L Current Medications Acetaminophen (Tylenol) 1,000 mg PO Q8 [facility] Last Admin: 01/29/19 05:29 Dose: 1,000 mg Documented by: Cholecalciferol (Vitamin D) 5,000 unit PO DAILY@1200 [facility] Last Admin: 01/28/19 13:54 Dose: Not Given Documented by: Dextrose (D50w Syringe) 0 gm IV X1 PRN; Protocol PRN Reason: Hypoglycemia Enteral Nutritional Formula (Ensure Surgery) 237 ml PO TIDCM [facility] Last Admin: 01/28/19 18:03 Dose: 237 ml Documented by: Famotidine (Pepcid) 40 mg PO DAILY [facility] Last Admin: 01/28/19 13:52 Dose: Not Given Documented by: Gabapentin (Neurontin) 1,200 mg PO BID [facility] Last Admin: 01/28/19 22:10 Dose: 1,200 mg Documented by: Gabapentin (Neurontin) 600 mg PO LUNCH [facility] Last Admin: 01/28/19 13:54 Dose: Not Given Documented by: Glucagon () 1 mg IM .X1 PRN PRN Reason: Hypoglycemia Hydroxychloroquine [facility]) [facility] Last Admin: 01/28/19 18:03 Dose: 200 mg Documented by: Lactated Ringer's () 1,000 mls @ 75 mls/hr IV .[id number] [facility] Last Infusion: 01/29/19 07:41 Dose: 75 mls/hr Documented by: Vancomycin IV Pharmacy to Dose (2,000 ea/ Sodium Chloride) 500 mls @ 250 mls/hr IV Q12 PRN; Protocol Piperacillin Sod/Tazobactam (Sod 3.375 gm/ Sodium Chloride) 50 mls @ 12.5 mls/hr IV Q8 [facility] Last Admin: 01/29/19 05:29 Dose: 12.5 mls/hr Documented by: Vancomycin HCl 1,500 mg/ (Sodium Chloride) 530 mls @ 250 mls/hr IV Q8H [facility] Last Infusion: 01/29/19 07:41 Dose: Infused Documented by: Sodium Chloride () 250 mls @ 15 mls/hr IV .[id number] PRN PRN Reason: Saline Flush Last Infusion: 01/29/19 05:30 Dose: 0 mls/hr Documented by: Ketorolac Tromethamine (Toradol) 15 mg IV Q6H PRN PRN PRN Reason: Pain Score 1-5/10 Stop: 01/30/19 10:59 Last Admin: 01/28/19 15:55 Dose: 15 mg Documented by: Levothyroxine Sodium (Synthroid) 175 mcg PO DAILY@0600 [facility] Last Admin: 01/29/19 05:29 Dose: 175 mcg Documented by: Lisinopril (Zestril) 10 mg PO DAILY [facility] Last Admin: 01/28/19 13:53 Dose: Not Given Documented by: Morphine Sulfate () 2 mg IV Q3H PRN PRN PRN Reason: Pain Score 6-10/10 Last Admin: 01/28/19 16:54 Dose: 2 mg Documented by: Ondansetron HCl (Zofran) 4 mg IV Q8H PRN PRN PRN Reason: NAUSEA/VOMITING Oxycodone HCl (Oxyir) 5 - 10 mg PO Q4H PRN PRN PRN Reason: Pain Score 4-10/10 Last Admin: 01/29/19 07:00 Dose: 10 mg Documented by: Pantoprazole Sodium (Protonix) 20 mg PO DAILY [facility] Last Admin: 01/28/19 13:53 Dose: Not Given Documented by: Pramipexole Dihydrochloride (Mirapex) 3 mg PO QHS [facility] Last Admin: 01/28/19 18:11 Dose: 3 mg Documented by: Pramipexole Dihydrochloride (Mirapex) 1.5 mg PO DAILY [facility] Last Admin: 01/28/19 13:52 Dose: Not Given Documented by: Promethazine HCl (Phenergan) 12.5 mg IM Q6H PRN PRN; Protocol PRN Reason: NAUSEA/VOMITING Rivaroxaban (Xarelto) 10 mg PO DAILY@0600 [facility] Last Admin: 01/29/19 05:29 Dose: 10 mg Documented by: Senna/Docusate Sodium (Senokot-S, Aileen-Colace) 2 tablet PO BID [facility] Last Admin: 01/28/19 22:10 Dose: 2 tablet Documented by: Sodium Chloride () 10 - 40 ml IV UD PRN PRN Reason: SALINE FLUSH Last Admin: 01/28/19 16:54 Dose: 10 ml Documented by: Venlafaxine HCl (Effexor Xr) 75 mg PO QHS [facility] Last Admin: 01/27/19 22:49 Dose: 75 mg Documented by: Venlafaxine HCl (Effexor Xr) 150 mg PO QHS [facility] Last Admin: 01/27/19 22:49 Dose: 150 mg Documented by: Medical Necessity - Tobacco Use Smoking Status: Former smoker Tobacco Use: Cigarettes Assessment/Plan All Active Problems Infection of right knee (Acute) Septic joint (Acute) 1. S/P removal total knee replacement with placement of articulating antibiotic spacer POD #1 2. Continue Pain Medications: Tylenol and OxyIR 3. DVT Prophylaxis: Xarelto for 2 weeks postoperatively due to previous blood clot. At 2-week postop visit we will switch over to baby aspirin twice daily for an additional 2 weeks. 4. PT/OT: Currently toe-touch weightbearing right lower extremity with knee immobilizer on at all times. She can open up knee immobilizer while in bed only. At 2 weeks postoperatively, patient will then begin 50% partial weightb earing until second stage revision has been done. 5. H & H: 10.6/34.9, asymptomatic 6. Encouraged Incentive Spirometry 7. Continue postoperative medical management per medicine: Appreciate input and management on patient's comorbidities. 8. Consult for infectious disease: Patient will require 6 weeks IV antibiotics. Current cultures are pending from surgery but aspiration/culture from January 26, [address] Carlos Barton did grow out Staphylococcus aureus. Patient's previous surgery with irrigation and debridement with retainment of implants on January 26, 2017 grew out streptococcus Agalactiae. She was treated with IV antibiotics at that time. 9. Hypoxia: Currently on nasal oxygen. Patient does have history of sleep apnea in which she requires CPAP machine. Patient denies any current shortness of breath at this time. We will continue to monitor. 10. Hemovac drain: We will continue with Hemovac drain for 48 hours postoperatively. Plan will be for possible removal tomorrow. Patient had 150 mL output over the past 24 hours. 11. Disposition: Patient will require IV antibiotics and PICC line. Appreciate input from infectious disease for appropriate antibiotic. Once patient is medically stable and PICC line has been placed plan will be for appropriate discharge.
[2019-01-29 10:29] VITALS: BP 115/62; PULSE 74; RESP 18; TEMP 36.8; O2SAT 96
[2019-01-29] MEDS: Pramipexole Di-HCl 0.5 MG Tablet 1.5 MG PO (10:31)
[2019-01-29] MEDS: Gabapentin 600 MG Tablet 1200 MG PO ×2 (10:31→22:27)
[2019-01-29] MEDS: Hydroxychloroquine 200 MG Tablet PO ×2 (10:32→18:30)
[2019-01-29] MEDS: Famotidine 20 MG Tablet 40 MG PO (10:33)
[2019-01-29] MEDS: Pantoprazole Sodium 20 MG Tablet PO (10:33)
[2019-01-29] MEDS: Lisinopril 10 MG Tablet PO (10:34)
[2019-01-29] MEDS: Senna/Docusate Sodium 1 Tablet 2 TABLET PO ×2 (10:46→22:38)
[2019-01-29] MEDS: Ensure Surgery 237 ML LIQUID PO ×2 (10:46→14:15)
[2019-01-29] MEDS: Ketorolac 15 MG/ML Vial IV ×2 (10:46→20:00)
[2019-01-29] MEDS: 0.9% Saline Lock 10 ML Syringe IV ×5 (10:47→23:46)
[2019-01-29] MEDS: Gabapentin 600 MG Tablet PO (14:13)
[2019-01-29] MEDS: cycloBENZAPRine HCl 5 MG TABLET PO ×2 (14:13→23:46)
[2019-01-29 14:17] LABS: Vancomycin, Trough Level 16.8 ug/mL (5.0-15.0)
[2019-01-29 15:04] VITALS: BP 115/65; PULSE 73; RESP 18; TEMP 36.6; O2SAT 93
--- NOTE | 2019-01-29 15:16 | PHA.PHARE_ITS ---
Consult Pharmacy has been consulted to manage selected antiobiotic: Vancomycin Type of Consult: Follow-up Suspected Infection: Other Prior Doses of Antibiotics Received/Current Regimen: Currently on 1500mg IV q8h Labs: Sodium 139 mmol/L (136-145) 01/29/19 06:12 Potassium 3.7 mmol/L (3.5-5.1) 01/29/19 06:12 Chloride 106 mmol/L (98-107) 01/29/19 06:12 Carbon Dioxide 30.0 mmol/L (21.0-32.0) 01/29/19 06:12 Anion Gap 3 (5-15) L 01/29/19 06:12 BUN 13 mg/dL (7-18) 01/29/19 06:12 Creatinine 0.70 mg/dL (0.55-1.02) 01/29/19 06:12 Est GFR (MDRD) Af Amer 110 mL/min (>60) 01/29/19 06:12 Est GFR (MDRD) Non-Af 91 mL/min (>60) 01/29/19 06:12 BUN/Creatinine Ratio 18.5 RATIO (10-20) 01/29/19 06:12 Glucose 118 mg/dL (74-106) H 01/29/19 06:12 Vancomycin Trough 16.8 ug/mL (5.0-15.0) H 01/29/19 13:35 Microbiology: Microbiology 01/28/19 Unknown Tissue - Knee Gram Stain - Final 01/28/19 Unknown Tissue - Knee Wound Culture - Preliminary GNR lactose release and technical records clerk 01/28/19 Unknown Tissue - Knee Gram Stain - Final 01/28/19 Unknown Tissue - Knee Wound Culture - Preliminary Staphylococcus species 01/28/19 Unknown Tissue - Knee Gram Stain - Final 01/28/19 Unknown Tissue - Knee Wound Culture - Preliminary Gram Positive Cocci Weight used for dosin.5 kg Estimated Creatinine Clearance: 110ml/min Goal Trough: 15-20 mcg/mL Pharmacy Plan for Drug Dosing: The vancomycin trough drawn before this afternoon's dose was 16.8 mg/L (drawn 8 hours after the previous dose). This is within goal range of 15-20 so will continue with the same dosing regimen. Will re-check the trough again in 4 days. The patient's CrCl of 110 ml/min was calculated using an adjusted body weight of 80.2kg rather than ideal body weight since the patient's actual weight is more than 120% over ideal body weight. Pharmacy Service will continue to monitor and adjust dosing as required. Follow-Up Labs: Trough Vancomycin Labs to be done on [date and time ordered]: 02/02/19 05:30
[2019-01-29 19:06] LABS: Bedside Glucose 123 mg/dL (70-110)
[2019-01-29 22:00] VITALS: BP 110/63; PULSE 77; RESP 18; TEMP 36.8; O2SAT 97
[2019-01-29] MEDS: Venlafaxine XR 150 MG Capsule PO (22:26)
[2019-01-29] MEDS: Venlafaxine XR 75 MG Capsule PO (22:26)
[2019-01-29] MEDS: Pramipexole Di-HCl 1 MG Tablet 3 MG PO (22:27)
[2019-01-29 22:50] LABS: Bedside Glucose 138 mg/dL (70-110)
[2019-01-30] VITALS (7 sets, daily range): BP systolic 131–154; BP diastolic 71–80; PULSE 69–94; RESP 16–18; TEMP 36.6–36.9; O2SAT 94–97
[2019-01-30] MEDS: Levothyroxine 175 MCG Tablet PO (05:30)
[2019-01-30] MEDS: Acetaminophen 500 MG Tablet 1000 MG PO ×3 (05:31→22:15)
[2019-01-30] MEDS: Rivaroxaban 10 MG Tablet PO (05:31)
[2019-01-30 05:45] LABS: Bedside Glucose 122 mg/dL (70-110)
[2019-01-30 06:00] LABS: Hematocrit 31.5 % (37-47); Hemoglobin 9.6 g/dL (12.0-15.0); Mean Corp Hgb Conc 30.5 g/dL (32-36); Mean Corpuscular Hgb 26.6 pg (27.0-32.0); Mean Corpuscular Volume 87.3 fL (81-99); Mean Platelet Vol. 9.1 fl (6.2-12.0); Platelet Count 247 K/mm3 (150-450); RBC Distribution Width CV 14.7 % (11.6-14.6); RBC Distribution Width SD 47.1 fl (35.1-43.9); Red Blood Count 3.61 M/mm3 (4.2-5.4); White Blood Count 10.1 K/mm3 (4.4-11.0)
--- NOTE | 2019-01-30 07:21 | PCM.PN.ORT ---
Patient Problems: Active and Suspected Problems Infection of right knee (Acute) Septic joint (Acute) Subjective: The patient was sitting in bed upon examination. Patient denies any chest pain, shortness of breath, dizziness, lightheadedness, nausea or vomiting, or calf pain. Pain is controlled on medications. No adverse overnight events. Pain appears to be well controlled. Cultures have grown out gram-negative marylin lactose photo intern, Staphylococcus species. We are waiting on consult from infectious disease for patient to be set up on IV antibiotics and PICC line. Patient appears to be doing better with regards to her O2 saturation. She does require CPAP machine at nighttime. Objective: Vital signs stable and afebrile. Patient is able to plantarflex and dorsiflex actively. Sensation is intact to light touch to saphenous, sural, superficial and deep peroneal, and tibial distribution. Dressing is clean dry and intact. Hemovac drain in place: Approximately 100 mL in canister. Hemovac drain was removed today. Steri-Strip was placed. Compressive dressing with ABD was placed over the knee Negative Homans bilaterally, negative signs and symptoms of DVT. - Physical Exam Vitals/I&O's: Vital Signs Temp Pulse Resp BP Pulse Ox 98.5 F 69 18 131/71 H 97 01/30/19 04:00 01/30/19 04:00 01/30/19 04:00 01/30/19 04:00 01/30/19 04:00 Oxygen Flow Rate (L/min) 2 Oxygen Delivery Method Bi-pap Weight: 118.5 kg Body Mass Index (BMI) 44.8 Finger Stick Blood Glucose 112 Intake and Output for Last 24 Hours 01/28/19 01/29/19 01/30/19 23:59 23:59 23:59 Intake Total 5340.25 / 5340.25 3713.25 / 4363.25 1651 / 1651 Output Total 600 / 600 1675 / 2025 650 / 650 Balance 4740.25 / 4740.25 2038.25 / 2338.25 1001 / 1001 General: Alert, Oriented x3, Cooperative, No apparent distress Microbiology Past 72 Hours 01/28/19 Unknown Tissue - Knee Gram Stain - Final 01/28/19 Unknown Tissue - Knee Wound Culture - Preliminary GNR lactose photo intern 01/28/19 Unknown Tissue - Knee Gram Stain - Final 01/28/19 Unknown Tissue - Knee Wound Culture - Preliminary Staphylococcus species 01/28/19 Unknown Tissue - Knee Gram Stain - Final 01/28/19 Unknown Tissue - Knee Wound Culture - Preliminary Gram Positive Cocci Laboratory Results 01/29/19 13:35: Vancomycin Trough 16.8 H 01/29/19 18:27: POC Glucose 123 H 01/29/19 22:33: POC Glucose 138 H 01/30/19 05:38: POC Glucose 122 H 01/30/19 05:52: WBC 10.1, RBC 3.61 L, Hgb 9.6 L, Hct 31.5 L, MCV 87.3, MCH 26.6 L, MCHC 30.5 L, RDW Std Deviation 47.1 H, RDW Coeff of Sergio 14.7 H, Plt Count 247, MPV 9.1 Current Medications Acetaminophen (Tylenol) 1,000 mg PO Q8 [facility] Last Admin: 01/30/19 05:31 Dose: 1,000 mg Documented by: Cholecalciferol (Vitamin D) 5,000 unit PO DAILY@1200 [facility] Last Admin: 01/29/19 10:32 Dose: 5,000 unit Documented by: Cyclobenzaprine HCl (Cyclobenzaprine Hcl) 5 mg PO TID PRN PRN PRN Reason: spasms Last Admin: 01/29/19 23:46 Dose: 5 mg Documented by: Dextrose (D50w Syringe) 0 gm IV X1 PRN; Protocol PRN Reason: Hypoglycemia Enteral Nutritional Formula (Ensure Surgery) 237 ml PO TIDCM [facility] Last Admin: 01/29/19 18:28 Dose: Not Given Documented by: Famotidine (Pepcid) 40 mg PO DAILY [facility] Last Admin: 01/29/19 10:33 Dose: 40 mg Documented by: Gabapentin (Neurontin) 1,200 mg PO BID [facility] Last Admin: 01/29/19 22:27 Dose: 1,200 mg Documented by: Gabapentin (Neurontin) 600 mg PO LUNCH [facility] Last Admin: 01/29/19 14:13 Dose: 600 mg Documented by: Glucagon () 1 mg IM .X1 PRN PRN Reason: Hypoglycemia Hydroxychloroquine Sulfate (Plaquenil) 200 mg PO BIDCM [facility] Last Admin: 01/29/19 18:30 Dose: 200 mg Documented by: Lactated Ringer's () 1,000 mls @ 75 mls/hr IV .[id number] [facility] Last Infusion: 01/30/19 05:26 Dose: 0 mls/hr Documented by: Vancomycin IV Pharmacy to Dose (2,000 ea/ Sodium Chloride) 500 mls @ 250 mls/hr IV Q12 PRN; Protocol Piperacillin Sod/Tazobactam (Sod 3.375 gm/ Sodium Chloride) 50 mls @ 12.5 mls/hr IV Q8 [facility] Last Admin: 01/30/19 05:26 Dose: 12.5 mls/hr Documented by: Vancomycin HCl 1,500 mg/ (Sodium Chloride) 530 mls @ 250 mls/hr IV Q8H [facility] Last Admin: 01/30/19 05:24 Dose: 250 mls/hr Documented by: Sodium Chloride () 250 mls @ 15 mls/hr IV .[id number] PRN PRN Reason: Saline Flush Last Infusion: 01/30/19 06:01 Dose: 0 mls/hr Documented by: Levothyroxine Sodium (Synthroid) 175 mcg PO DAILY@0600 [facility] Last Admin: 01/30/19 05:30 Dose: 175 mcg Documented by: Lisinopril (Zestril) 10 mg PO DAILY [facility] Last Admin: 01/29/19 10:34 Dose: 10 mg Documented by: Morphine Sulfate () 2 mg IV Q3H PRN PRN PRN Reason: Pain Score 6-10/10 Last Admin: 01/28/19 16:54 Dose: 2 mg Documented by: Ondansetron HCl (Zofran) 4 mg IV Q8H PRN PRN PRN Reason: NAUSEA/VOMITING Oxycodone HCl (Oxyir) 5 - 10 mg PO Q4H PRN PRN PRN Reason: Pain Score 4-10/10 Last Admin: 01/29/19 18:56 Dose: 10 mg Documented by: Pantoprazole Sodium (Protonix) 20 mg PO DAILY [facility] Last Admin: 01/29/19 10:33 Dose: 20 mg Documented by: Pramipexole Dihydrochloride (Mirapex) 3 mg PO QHS [facility] Last Admin: 01/29/19 22:27 Dose: 3 mg Documented by: Pramipexole Dihydrochloride (Mirapex) 1.5 mg PO DAILY [facility] Last Admin: 01/29/19 10:31 Dose: 1.5 mg Documented by: Promethazine HCl (Phenergan) 12.5 mg IM Q6H PRN PRN; Protocol PRN Reason: NAUSEA/VOMITING Rivaroxaban (Xarelto) 10 mg PO DAILY@0600 [facility] Last Admin: 01/30/19 05:31 Dose: 10 mg Documented by: Senna/Docusate Sodium (Senokot-S, Aileen-Colace) 2 tablet PO BID [facility] Last Admin: 01/29/19 22:38 Dose: 2 tablet Documented by: Sodium Chloride () 10 - 40 ml IV UD PRN PRN Reason: SALINE FLUSH Last Admin: 01/29/19 23:46 Dose: 10 ml Documented by: Venlafaxine HCl (Effexor Xr) 75 mg PO QHS [facility] Last Admin: 01/29/19 22:26 Dose: 75 mg Documented by: Venlafaxine HCl (Effexor Xr) 150 mg PO QHS [facility] Last Admin: 01/29/19 22:26 Dose: 150 mg Documented by: Medical Necessity - Tobacco Use Smoking Status: Former smoker Tobacco Use: Cigarettes Assessment/Plan All Active Problems Infection of right knee (Acute) Septic joint (Acute) 1. S/P removal total knee replacement with placement of articulating antibiotic spacer POD #2 2. Continue Pain Medications: Tylenol and OxyIR 3. DVT Prophylaxis: Xarelto for 2 weeks postoperatively due to previous blood clot. At 2-week postop visit we will switch over to baby aspirin twice daily for an additional 2 weeks. 4. PT/OT: Currently toe-touch weightbearing right lower extremity with knee immobilizer on at all times. She can open up knee immobilizer while in bed only. At 2 weeks postoperatively, patient will then begin 50% partial weightbearing until second stage revision has been done. 5. H & H: 9.6/31.5, asymptomatic 6. Encouraged Incentive Spirometry 7. Continue postoperative medical management per medicine: Appreciate input and management on patient's comorbidities. 8. Consult for infectious disease: Patient will require 6 weeks IV antibiotics. Culture from aspiration/culture from January 26, [address] Carlos Barton did grow out Staphylococcus aureus. Patient's recent cultures have grown out gram-negative marylin lactose photo intern and gram-positive cocci. Patient's previous surgery with irrigation and debridement with retainment of implants on January 26, 2017 grew out streptococcus Agalactiae. She was treated with IV antibiotics at that time. 9. Hypoxia: Currently on nasal oxygen improving. Patient does have history of sleep apnea in which she requires CPAP machine. Patient denies any current shortness of breath at this time. We will continue to monitor. 10. Hemovac drain: Drain was removed today, Steri-Strip was placed over drain site. Compressive dressing with ABD was placed. We will continue with this compressive dressing for the next several hours and then will require a change in the Mepilex dressing. This will be done by nursing staff later today. 11. Disposition: Patient will require IV antibiotics and PICC line. Appreciate input from infectious disease for appropriate antibiotic. Once patient is medically stable and PICC line has been placed plan will be for appropriate discharge. Patient will be discharged home with knee immobilizer at all times and toe-touch weightbearing with walker. Continue with Xarelto 2 weeks postoperatively due to previous blood clot. At her 2-week postop visit we will switch her over to baby aspirin 81 mg twice daily for an additional 2 weeks. Discharge home with Tylenol and OxyIR for pain control. Patient will require 2-week postop visit with myself or Dr. Carlos Barton for incision check. Patient will also have to follow with infectious disease for management of antibiotics. If patient is able to be discharged today that is fine from orthopedic standpoint. Please contact orthopedics with any concerns or questions.
[2019-01-30] MEDS: Ensure Surgery 237 ML LIQUID PO (08:09)
[2019-01-30] MEDS: Hydroxychloroquine 200 MG Tablet PO ×2 (08:09→18:38)
[2019-01-30] MEDS: oxyCODONE 5 MG Tablet PO ×2 (08:15→17:22)
--- NOTE | 2019-01-30 08:28 | PN_ITS ---
Patient Problems: Active and Suspected Problems Infection of right knee (Acute) Septic joint (Acute) Subjective: Chief complaint: Follow-up after admission for suspected septic arthritis of the right prostatic knee joint. Patient seen and examined. No acute events overnight. She has been ambulating, right knee pain is manageable. She complained of some muscle spasm on the right foot but lasts only for few seconds. Denies fever or chills. No chest pain or shortness of breath. Her vital signs are stable, afebrile. - Physical Exam Vitals/I&O's: Vital Signs Temp Pulse Resp BP Pulse Ox 98.5 F 69 18 131/71 H 97 01/30/19 04:00 01/30/19 04:00 01/30/19 04:00 01/30/19 04:00 01/30/19 04:00 Oxygen Flow Rate (L/min) 2 Oxygen Delivery Method Bi-pap Weight: 261 lb 3.964 oz Body Mass Index (BMI) 44.8 Finger Stick Blood Glucose 112 Intake and Output for Last 24 Hours 01/28/19 01/29/19 01/30/19 23:59 23:59 23:59 Intake Total 5340.25 / 5340.25 3713.25 / 4363.25 2181 / 2181 Output Total 600 / 600 1675 / 2025 650 / 650 Balance 4740.25 / 4740.25 2038.25 / 2338.25 1531 / 1531 General: Alert, Oriented x3, Cooperative, No apparent distress HEENT: Atraumatic, PERRLA, EOMI, Normocephalic Oral: Moist Mucosa, No Gingival or Mucosal Lesions/ Ulcerations Neck: Supple, No JVD, Negative Carotid Bruits, Trachea Midline, Thyroid Normal Size and Texture Lungs: Clear to auscultation, Normal air movement, No rhonchi, No wheeze, No rales Cardiovascular: Regular rate, Regular Rhythm, Normal S1, Normal S2, PMI Normal Abdomen: Bowel Sounds Present, Soft, Non Tender, Non-Distended, No Hepato- splenomegaly, Obese Extremities: No clubbing, No cyanosis, No edema Skin: No rashes, Incision Lymphatic: No Cervical, Supraclavicular, or Inguinal Adenopathy Neurological: Cranial nerves II-XII grossly intact, Motor Exam 5/5 strength throughout Psych/Mental Status: Normal Affect, Appropriate, Alert and oriented to time, place, person, mood and affect Microbiology Past 72 Hours 01/28/19 Unknown Tissue - Knee Gram Stain - Final 01/28/19 Unknown Tissue - Knee Wound Culture - Preliminary GNR lactose guard dance hall 01/28/19 Unknown Tissue - Knee Gram Stain - Final 01/28/19 Unknown Tissue - Knee Wound Culture - Preliminary Staphylococcus species 01/28/19 Unknown Tissue - Knee Gram Stain - Final 01/28/19 Unknown Tissue - Knee Wound Culture - Preliminary Gram Positive Cocci Laboratory Results 01/29/19 13:35: Vancomycin Trough 16.8 H 01/29/19 18:27: POC Glucose 123 H 01/29/19 22:33: POC Glucose 138 H 01/30/19 05:38: POC Glucose 122 H 01/30/19 05:52: WBC 10.1, RBC 3.61 L, Hgb 9.6 L, Hct 31.5 L, MCV 87.3, MCH 26.6 L, MCHC 30.5 L, RDW Std Deviation 47.1 H, RDW Coeff of Sergio 14.7 H, Plt Count 247, MPV 9.1 Current Medications Acetaminophen (Tylenol) 1,000 mg PO Q8 [facility] Last Admin: 01/30/19 05:31 Dose: 1,000 mg Documented by: Cholecalciferol (Vitamin D) 5,000 unit PO DAILY@1200 [facility] Last Admin: 01/29/19 10:32 Dose: 5,000 unit Documented by: Cyclobenzaprine HCl (Cyclobenzaprine Hcl) 5 mg PO TID PRN PRN PRN Reason: spasms Last Admin: 01/29/19 23:46 Dose: 5 mg Documented by: Dextrose (D50w Syringe) 0 gm IV X1 PRN; Protocol PRN Reason: Hypoglycemia Enteral Nutritional Formula (Ensure Surgery) 237 ml PO TIDCM [facility] Last Admin: 01/30/19 08:09 Dose: 237 ml Documented by: Famotidine (Pepcid) 40 mg PO DAILY [facility] Last Admin: 01/29/19 10:33 Dose: 40 mg Documented by: Gabapentin (Neurontin) 1,200 mg PO BID [facility] Last Admin: 01/29/19 22:27 Dose: 1,200 mg Documented by: Gabapentin (Neurontin) 600 mg PO LUNCH [facility] Last Admin: 01/29/19 14:13 Dose: 600 mg Documented by: Glucagon () 1 mg IM .X1 PRN PRN Reason: Hypoglycemia Hydroxychloroquine Sulfate (Plaquenil) 200 mg PO BIDCM [facility] Last Admin: 01/30/19 08:09 Dose: 200 mg Documented by: Lactated Ringer's () 1,000 mls @ 75 mls/hr IV .[id number] [facility] Last Infusion: 01/30/19 07:32 Dose: 75 mls/hr Documented by: Vancomycin IV Pharmacy to Dose (2,000 ea/ Sodium Chloride) 500 mls @ 250 mls/hr IV Q12 PRN; Protocol Piperacillin Sod/Tazobactam (Sod 3.375 gm/ Sodium Chloride) 50 mls @ 12.5 mls/hr IV Q8 [facility] Last Admin: 01/30/19 05:26 Dose: 12.5 mls/hr Documented by: Vancomycin HCl 1,500 mg/ (Sodium Chloride) 530 mls @ 250 mls/hr IV Q8H [facility] Last Infusion: 01/30/19 07:32 Dose: Infused Documented by: Sodium Chloride () 250 mls @ 15 mls/hr IV .[id number] PRN PRN Reason: Saline Flush Last Infusion: 01/30/19 06:01 Dose: 0 mls/hr Documented by: Levothyroxine Sodium (Synthroid) 175 mcg PO DAILY@0600 [facility] Last Admin: 01/30/19 05:30 Dose: 175 mcg Documented by: Lisinopril (Zestril) 10 mg PO DAILY [facility] Last Admin: 01/29/19 10:34 Dose: 10 mg Documented by: Morphine Sulfate () 2 mg IV Q3H PRN PRN PRN Reason: Pain Score 6-10/10 Last Admin: 01/28/19 16:54 Dose: 2 mg Documented by: Ondansetron HCl (Zofran) 4 mg IV Q8H PRN PRN PRN Reason: NAUSEA/VOMITING Oxycodone HCl (Oxyir) 5 - 10 mg PO Q4H PRN PRN PRN Reason: Pain Score 4-10/10 Last Admin: 01/30/19 08:15 Dose: 5 mg Documented by: Pantoprazole Sodium (Protonix) 20 mg PO DAILY [facility] Last Admin: 01/29/19 10:33 Dose: 20 mg Documented by: Pramipexole Dihydrochloride (Mirapex) 3 mg PO QHS [facility] Last Admin: 01/29/19 22:27 Dose: 3 mg Documented by: Pramipexole Dihydrochloride (Mirapex) 1.5 mg PO DAILY [facility] Last Admin: 01/29/19 10:31 Dose: 1.5 mg Documented by: Promethazine HCl (Phenergan) 12.5 mg IM Q6H PRN PRN; Protocol PRN Reason: NAUSEA/VOMITING Rivaroxaban (Xarelto) 10 mg PO DAILY@0600 [facility] Last Admin: 01/30/19 05:31 Dose: 10 mg Documented by: Senna/Docusate Sodium (Senokot-S, Aileen-Colace) 2 tablet PO BID [facility] Last Admin: 01/29/19 22:38 Dose: 2 tablet Documented by: Sodium Chloride () 10 - 40 ml IV UD PRN PRN Reason: SALINE FLUSH Last Admin: 01/29/19 23:46 Dose: 10 ml Documented by: Venlafaxine HCl (Effexor Xr) 75 mg PO QHS [facility] Last Admin: 01/29/19 22:26 Dose: 75 mg Documented by: Venlafaxine HCl (Effexor Xr) 150 mg PO QHS [facility] Last Admin: 01/29/19 22:26 Dose: 150 mg Documented by: Medical Necessity - Tobacco Use Smoking Status: Former smoker Tobacco Use: Cigarettes Assessment/Plan All Active Problems Infection of right knee (Acute) Septic joint (Acute) This is a 58 years old female patient presented to the emergency room because of right knee pain and swelling, found to have 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 #1 suspected septic arthritis of the prosthetic right knee: Status post removal of the total knee replacement with placement of articulating antibiotic spacer, placement of nonbiodegradable antibiotic delivery system, postoperative day 2. She is on IV vancomycin and Zosyn. Her vital signs are stable, afebrile, no leukocytosis. Wound culture revealed Staphylococcus and gram-negative rods, final is pending. Orthopedic surgery on the case. Infectious disease consulted, awaiting recommendations. #2 hypertension: Blood pressure stable, continue lisinopril. #3 rheumatoid arthritis: Stable, continue Plaquenil. #4 hypothyroidism: Continue levothyroxine. #5 depression/anxiety: Stable, continue Effexor. #6 anemia: Probably chronic. Hemoglobin is been fluctuating, recent hematoma was around 13 g/dL. It has been dropping, today's visit was 9.6 which is likely because of blood loss during surgery. Patient is asymptomatic. Plan to monitor. #7 DVT prophylaxis: On Xarelto. This note was generated with [employer] dictation software. It may contain incorrect words, spelling, and punctuation that were not noted in checking the note before signing. Code Visit Inpatient E&M: 36119 Subs Hosp L2
[2019-01-30] MEDS: Pramipexole Di-HCl 0.5 MG Tablet 1.5 MG PO (09:43)
[2019-01-30] MEDS: Gabapentin 600 MG Tablet 1200 MG PO ×2 (09:45→22:09)
[2019-01-30] MEDS: Famotidine 20 MG Tablet 40 MG PO (09:45)
[2019-01-30] MEDS: Pantoprazole Sodium 20 MG Tablet PO (09:46)
[2019-01-30] MEDS: Lisinopril 10 MG Tablet PO (09:48)
[2019-01-30] MEDS: Senna/Docusate Sodium 1 Tablet 2 TABLET PO (09:55)
--- NOTE | 2019-01-30 10:05 | CASEMGMT ---
LATSEHA ORTIZ Face to Face with patient for initial transition planning/care coordination assessment. LATESHA ORTIZ introduced self and role at [facility]. Patient lying in bed, alert and oriented. Patient willing to participate in assessment and is able to answer all questions appropriately. Care providers, pharmacy, and demographics verified. Patient wishes to discharge home with HHC to manage IV ATBs. LTAESHA ORTIZ gave patient list of HHC and Infusion Companies. [facility] and [facility], whom she has had in the past. Patient states she has no further needs or concerns at this time. CM to follow for discharge planning needs that may arise. PCP: Lin Specialists: Oralia, ortho; Marley, podiatry; Saul, [employer] Preferred Pharmacy: [facility] Insurance: [employer] Prescription Benefit: yes Living Will/HPOA: none LNOK: Living Arrangements: Patient lives with in 1 story home with no steps to enter the home. Transportation: DME/HHC: Patient has shower chair, raised toilet, cane, grab bars, walker, wheelchair, and cpap at home. Patient has had [facility] and [facility] in the past and are preferred providers for HHC and Infusions. LATESHA ORTIZ sent referrals to [facility] and [facility] for HHC and infusion setup. Planned discharge is for tomorrow with start of care at home for 1400. [facility] is able to accept the patient. Awaiting call back from [facility] regarding IV ATBS Disposition Plan: Patient is discharge home with HHC, family support, and follow-up plans in place. Queenie HAND, RN, CM
[2019-01-30] MEDS: cycloBENZAPRine HCl 5 MG TABLET PO ×2 (10:06→18:37)
[2019-01-30] MEDS: 0.9% Saline Lock 10 ML Syringe IV (10:18)
[2019-01-30] MEDS: Gabapentin 600 MG Tablet PO (11:21)
--- NOTE | 2019-01-30 11:46 | PCM.HP.ID ---
Problem List (1) Infection of right knee Status: Acute Reason for Consult: PJI Consulted by: Dr. Barton History of Present Illness: The patient is a 58 year old F with DM, R knee PJI with GBS in 01/2017, presented 01/27 with several days of progressive R knee pain, swelling, redness, mild fever. No drainage. Had lower RLE cellulitis about 2 weeks ago, given doxy and then amoxicillin which cleared up the redness, but knee started hurting not long after. Came to ED, admitted on vanc/zosyn, taken to OR 01/[address] Barton. Surg cx now with MSSA and single sample also with enterobacter. Pain controlled, no fever here, no n/v/d. Full ROS performed and neg except as noted above. - Medical History Past Medical History (Chronic Problems): Chronic Problems History of DVT (deep vein thrombosis) (Chronic) Septic arthritis of knee, right (Chronic) Hx of total knee replacement (Chronic) right Restless leg (Chronic) RENNY (obstructive sleep apnea) (Chronic) Hypothyroidism (Chronic) Diverticulosis of colon without diverticulitis (Chronic) Depression (Chronic) Postphlebitic syndrome with inflammation (Chronic) Lumbar disc disease (Chronic) History of Graves' disease (Chronic) Diabetes mellitus (Chronic) Renal insufficiency (Chronic) Presence of IVC filter (Chronic) Obesity (Chronic) Edema leg (Chronic) Leg swelling (Chronic) DVT of lower extremity (deep venous thrombosis) (Chronic) Allergies/Adverse Reactions: Allergies hydrocodone bitartrate [From Lortab] Allergy (Intermediate, Verified 01/20/19 16:07) Other lips swell, ataxia etodolac Allergy (Verified 01/20/19 16:07) Unknown misoprostol Allergy (Verified 01/20/19 16:07) Unknown celecoxib Adverse Reaction (Intermediate, Verified 01/20/19 16:07) Other heart palpitations diclofenac [Diclofenac] Adverse Reaction (Mild, Verified 01/20/19 16:07) Abd cramps/diarrhea ketorolac tromethamine [From Toradol] Adverse Reaction (Mild, Verified 01/20/19 16:07) Other balance issues metoclopramide HCl [From Reglan] Adverse Reaction (Mild, Verified 01/20/19 16:07) Other worsens restless leg atorvastatin [From Lipitor] Adverse Reaction (Verified 01/20/19 16:07) Other FACE SPASMS clindamycin Adverse Reaction (Verified 01/20/19 16:07) Mucosal lesions Home Medications: Ambulatory Orders Medication Instructions Recorded Levothyroxine [Synthroid] 175 mcg PO DAILY 09/01/13 Ranitidine [Zantac] 300 mg PO DAILY 05/17/14 Omeprazole [Prilosec] 20 mg PO DAILY 12/13/16 Cholecalciferol (Vitamin D3) 5,000 unit PO DAILY@1200 01/25/17 [Vitamin D3] [place]-3 Fatty Acids/Fish Oil [Fish 2,000 mg PO DAILY 03/21/18 Oil 1,000 mg Capsule] Gabapentin 1,200 mg PO BID 08/01/18 Gabapentin [Neurontin] 600 mg PO .LUNCHTIME 08/01/18 Hydroxychloroquine [Plaquenil] 200 mg PO BIDCM 08/01/18 Lisinopril [Zestril] 10 mg PO DAILY 08/01/18 Pramipexole Di-HCl [Pramipexole 1.5 tab PO DAILY 08/01/18 Dihydrochloride] Pramipexole Di-HCl [Pramipexole 3 mg PO QHS 08/01/18 Dihydrochloride] Venlafaxine HCl [Effexor Xr] 1 tab PO QHS 08/01/18 Venlafaxine HCl [Venlafaxine HCl 1 tab PO QHS 08/01/18 ER] Cefepime HCl [Maxipime] 2 gm IV Q8 40 Days #120 vial 01/30/19 - Social History SMOKING STATUS:: Former smoker Vital Signs Temp Pulse Resp BP Pulse Ox 98.4 F 74 18 136/74 H 94 01/30/19 10:11 01/30/19 10:11 01/30/19 10:11 01/30/19 10:11 01/30/19 10:11 Oxygen Flow Rate (L/min) 2 Oxygen Delivery Method Room Air Weight: 118.5 kg Body Mass Index (BMI) 44.8 Finger Stick Blood Glucose 112 Microbiology Past 72 Hours 01/28/19 Unknown Gram Stain - Final Tissue - Knee Wound Culture - Preliminary Enterobacter aerogenes Staphylococcus aureus Anaerobic Culture - Preliminary Checking for anaerobes, further studies to follow. 01/28/19 Unknown Gram Stain - Final Tissue - Knee Wound Culture - Preliminary Staphylococcus aureus Anaerobic Culture - Preliminary No growth in 48 hours. 01/28/19 Unknown Gram Stain - Final Tissue - Knee Wound Culture - Final Staphylococcus aureus Anaerobic Culture - Preliminary No growth in 48 hours. Laboratory Tests Past 24 Hrs 01/29/19 01/30/19 13:35 05:52 WBC 10.1 RBC 3.61 L Hgb 9.6 L Hct 31.5 L MCV 87.3 MCH 26.6 L MCHC 30.5 L RDW Std Deviation 47.1 H RDW Coeff of Sergio 14.7 H Plt Count 247 MPV 9.1 Vancomycin Trough 16.8 H - Other Studies Radiology: [] reviewed Other Studies: [] Route of nutrition/ use of supplements: [] Nutritional Intake: [] IV Site: [] Clarke Catheter: [] - Physical Exam General: Alert, Oriented x3, Cooperative, No apparent distress HEENT: Atraumatic, PERRLA, EOMI Neck: Supple, No Nodes Lungs: Clear to auscultation, Normal air movement Cardiovascular: Regular rate, Regular Rhythm, No murmurs Abdomen: Soft, Non Tender, Non-Distended Extremities: Edema Skin: Incision - RLE wrapped IV Site: Peripheral, without redness Musculoskeletal: No Tenderness to Palpation of Joints or Extremities Neurological: Cranial nerves II-XII grossly intact - Assessment/Plan Antibiotics: [] Assessment/Plan: [] Active and Suspected Problems Infection of right knee (Acute) Septic joint (Acute) 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 Barton 01/28/19. Will narrow abx to cefepime, order picc, plan on 6 week course with stop date 03/11/19, weekly bmp/cbc/esr. ID followup with me in 2 weeks. Rx written for labs and abx. Will follow, thank you, d/w casework supervisor
--- NOTE | 2019-01-30 13:17 | CASEMGMT ---
LATESHA ORTIZ received call from [facility] that patient is covered at 100%. LATESHA ORTIZ confirmed start of care with I for 01/31/19 1400. LATESHA ORTIZ updated [facility] with planned discharge for tomorrow with start of care for 1400. LATESHA ORTIZ updated the patient regarding HHC and infusion IV ATBs. CM will continue to follow this patient and plan for a safe discharge.
--- NOTE | 2019-01-30 15:27 | CASEMGMT ---
Addendum entered by Abelardo Duarte 01/30/19 15:36: Infusion referral being evaluated by [facility]. Pt to remain in hospital and receive IV antibiotics until referral accepted and [facility] is coordinated. LATESHA ORTIZ will continue to follow in am to complete referral. Svitlana FINK Original Note: LATESHA ORTIZ Note: Referral for Infusion faxed to [facility]fusion @ [phone]. Call to Bree @ [facility] (Estefania celestin)- notified to hold on Infusion referral for this patient. [facility] nurse updated that infusion company has changed and to let pt know CM will update her in am re: home infusion times and [facility] set up times. Svitlana FINK
[2019-01-30] MEDS: Lactated Ringers 1,000 ML 75 ML IV (17:22)
[2019-01-30] MEDS: Venlafaxine XR 75 MG Capsule PO (22:07)
[2019-01-30] MEDS: Venlafaxine XR 150 MG Capsule PO (22:08)
[2019-01-30] MEDS: Pramipexole Di-HCl 1 MG Tablet 3 MG PO (22:19)
[2019-01-31] MEDS: cycloBENZAPRine HCl 5 MG TABLET PO (02:53)
[2019-01-31 02:54] VITALS: BP 136/78; PULSE 80; RESP 16; TEMP 36.7; O2SAT 95
[2019-01-31] MEDS: Levothyroxine 175 MCG Tablet PO (04:41)
[2019-01-31] MEDS: Rivaroxaban 10 MG Tablet PO (04:41)
[2019-01-31] MEDS: Acetaminophen 500 MG Tablet 1000 MG PO ×2 (04:43→13:33)
[2019-01-31] MEDS: 0.9% Saline Lock 10 ML Syringe IV ×2 (04:50→05:42)
[2019-01-31] MEDS: Ondansetron 4 MG/2 ML Vial IV (05:42)
[2019-01-31 06:30] LABS: Hematocrit 30.3 % (37-47); Hemoglobin 9.5 g/dL (12.0-15.0); Mean Corp Hgb Conc 31.4 g/dL (32-36); Mean Corpuscular Hgb 27.2 pg (27.0-32.0); Mean Corpuscular Volume 86.8 fL (81-99); Mean Platelet Vol. 9.1 fl (6.2-12.0); Platelet Count 260 K/mm3 (150-450); RBC Distribution Width CV 14.3 % (11.6-14.6); RBC Distribution Width SD 45.6 fl (35.1-43.9); Red Blood Count 3.49 M/mm3 (4.2-5.4); White Blood Count 8.5 K/mm3 (4.4-11.0)
--- NOTE | 2019-01-31 07:08 | PCM.PN.ORT ---
Patient Problems: Active and Suspected Problems Infection of right knee (Acute) Septic joint (Acute) Subjective: patient was seen earlier this morning at 5:50 AM but computer system was down and unable to dictate a note. Patient was sitting in bed upon examination. Patient currently denies any chest pain, shortness of breath, fevers chills, dizziness, lightheadedness, nausea vomiting, or calf pain. Patient does have urinary retention since his surgery. She did require a Clarke yesterday. Infectious disease has seen the patient and she has her PICC line. Antibiotics have been written for by infectious disease. Plan is for patient to go home with home health for IV antibiotics for 6 weeks. Patient does have some soreness in the right knee with occasional muscle spasm. Overall the pain has been controlled on medications. Objective: vital signs stable and afebrile Patient is able to plantarflex and dorsiflex actively Knee immobilizer in place Sensation intact to light touch to saphenous, sural, superficial/deep peroneal, tibial distribution Negative Homans bilaterally, negative signs and symptoms of blood clot Dressing is clean, dry, intact - Physical Exam Vitals/I&O's: Vital Signs Temp Pulse Resp BP Pulse Ox 98.1 F 80 16 136/78 H 95 01/31/19 02:54 01/31/19 02:54 01/31/19 02:54 01/31/19 02:54 01/31/19 02:54 Oxygen Flow Rate (L/min) 2 Oxygen Delivery Method Nasal Cannula Weight: 118.5 kg Body Mass Index (BMI) 44.8 Finger Stick Blood Glucose 112 Intake and Output for Last 24 Hours 01/29/19 01/30/19 01/31/19 23:59 23:59 23:59 Intake Total 3713.25 / 4363.25 4756.50 / 4756.50 479.75 / 479.75 Output Total 1675 / 2025 1575 / 1575 1050 / 1050 Balance 2038.25 / 2338.25 3181.50 / 3181.50 -570.25 / -570.25 General: Alert, Oriented x3, Cooperative, No apparent distress Microbiology Past 72 Hours 01/28/19 Unknown Tissue - Knee Gram Stain - Final 01/28/19 Unknown Tissue - Knee Wound Culture - Preliminary Enterobacter aerogenes Staphylococcus aureus 01/28/19 Unknown Tissue - Knee Anaerobic Culture - Preliminary Checking for anaerobes, further studies to follow. 01/28/19 Unknown Tissue - Knee Gram Stain - Final 01/28/19 Unknown Tissue - Knee Wound Culture - Preliminary Staphylococcus aureus 01/28/19 Unknown Tissue - Knee Anaerobic Culture - Preliminary No growth in 48 hours. 01/28/19 Unknown Tissue - Knee Gram Stain - Final 01/28/19 Unknown Tissue - Knee Wound Culture - Final Staphylococcus aureus 01/28/19 Unknown Tissue - Knee Anaerobic Culture - Preliminary No growth in 48 hours. Laboratory Results 01/31/19 06:17: WBC 8.5, RBC 3.49 L, Hgb 9.5 L, Hct 30.3 L, MCV 86.8, MCH 27.2, MCHC 31.4 L, RDW Std Deviation 45.6 H, RDW Coeff of Sergio 14.3, Plt Count 260, MPV 9.1 Current Medications Acetaminophen (Tylenol) 1,000 mg PO Q8 [facility] Last Admin: 01/31/19 04:43 Dose: 1,000 mg Documented by: Cholecalciferol (Vitamin D) 5,000 unit PO DAILY@1200 [facility] Last Admin: 01/30/19 11:21 Dose: 5,000 unit Documented by: Cyclobenzaprine HCl (Cyclobenzaprine Hcl) 5 mg PO TID PRN PRN PRN Reason: spasms Last Admin: 01/31/19 02:53 Dose: 5 mg Documented by: Enteral Nutritional Formula (Ensure Surgery) 237 ml PO TIDCM [facility] Last Admin: 01/30/19 18:37 Dose: Not Given Documented by: Famotidine (Pepcid) 40 mg PO DAILY [facility] Last Admin: 01/30/19 09:45 Dose: 40 mg Documented by: Gabapentin (Neurontin) 1,200 mg PO BID [facility] Last Admin: 01/30/19 22:09 Dose: 1,200 mg Documented by: Gabapentin (Neurontin) 600 mg PO LUNCH [facility] Last Admin: 01/30/19 11:21 Dose: 600 mg Documented by: Hydroxychloroquine Sulfate (Plaquenil) 200 mg PO BIDCM [facility] Last Admin: 01/30/19 18:38 Dose: 200 mg Documented by: Sodium Chloride () 250 mls @ 15 mls/hr IV .[id number] PRN PRN Reason: Saline Flush Last Infusion: 01/31/19 06:17 Dose: 0 mls/hr Documented by: Cefepime HCl 2 gm/ Sodium (Chloride) 100 mls @ 200 mls/hr IV Q8 [facility] Last Infusion: 01/31/19 05:12 Dose: Infused Documented by: Levothyroxine Sodium (Synthroid) 175 mcg PO DAILY@0600 [facility] Last Admin: 01/31/19 04:41 Dose: 175 mcg Documented by: Lisinopril (Zestril) 10 mg PO DAILY [facility] Last Admin: 01/30/19 09:48 Dose: 10 mg Documented by: Morphine Sulfate () 2 mg IV Q3H PRN PRN PRN Reason: Pain Score 6-10/10 Last Admin: 01/28/19 16:54 Dose: 2 mg Documented by: Ondansetron HCl (Zofran) 4 mg IV Q8H PRN PRN PRN Reason: NAUSEA/VOMITING Oxycodone HCl (Oxyir) 5 - 10 mg PO Q4H PRN PRN PRN Reason: Pain Score 4-10/10 Last Admin: 01/30/19 17:22 Dose: 5 mg Documented by: Pantoprazole Sodium (Protonix) 20 mg PO DAILY [facility] Last Admin: 01/30/19 09:46 Dose: 20 mg Documented by: Pramipexole Dihydrochloride (Mirapex) 3 mg PO QHS [facility] Last Admin: 01/30/19 22:19 Dose: 3 mg Documented by: Pramipexole Dihydrochloride (Mirapex) 1.5 mg PO DAILY [facility] Last Admin: 01/30/19 09:43 Dose: 1.5 mg Documented by: Promethazine HCl (Phenergan) 12.5 mg IM Q6H PRN PRN; Protocol PRN Reason: NAUSEA/VOMITING Rivaroxaban (Xarelto) 10 mg PO DAILY@0600 [facility] Last Admin: 01/31/19 04:41 Dose: 10 mg Documented by: Senna/Docusate Sodium (Senokot-S, Aileen-Colace) 2 tablet PO BID [facility] Last Admin: 01/30/19 22:10 Dose: Not Given Documented by: Sodium Chloride () 10 - 40 ml IV UD PRN PRN Reason: SALINE FLUSH Last Admin: 01/31/19 04:50 Dose: 20 ml Documented by: Venlafaxine HCl (Effexor Xr) 75 mg PO QHS [facility] Last Admin: 01/30/19 22:07 Dose: 75 mg Documented by: Venlafaxine HCl (Effexor Xr) 150 mg PO QHS [facility] Last Admin: 01/30/19 22:08 Dose: 150 mg Documented by: Medical Necessity - Tobacco Use Smoking Status: Former smoker Tobacco Use: Cigarettes Assessment/Plan All Active Problems Infection of right knee (Acute) Septic joint (Acute) 1. S/P removal total knee replacement with placement of articulating antibiotic spacer POD #3 2. Continue Pain Medications: Tylenol and OxyIR 3. DVT Prophylaxis: Xarelto for 2 weeks postoperatively due to previous blood clot. At 2-week postop visit we will switch over to baby aspirin twice daily for an additional 2 weeks. 4. PT/OT: Currently toe-touch weightbearing right lower extremity with knee immobilizer on at all times. She can open up knee immobilizer while in bed only. At 2 weeks postoperatively, patient will then begin 50% partial weightbearing until second stage revision has been done. 5. H & H: 9.5/30.3, asymptomatic 6. Encouraged Incentive Spirometry 7. Continue postoperative medical management per medicine: Appreciate input and management on patient's comorbidities. 8. Consult for infectious disease: Patient will require 6 weeks IV antibiotics, currently on cefepime continue 6 weeks with stop date on March 11, 2019. Will require weekly BMPs/CBC/ESR. Follow-up with infectious disease in 2 weeks.. Culture from aspiration/culture from January 26, [address] Carlos Barton did grow out Staphylococcus aureus. Patient's recent cultures have grown out gram-negative marylin lactose rolled ham lacer and gram-positive cocci. Patient's previous surgery with irrigation and debridement with retainment of implants on January 26, 2017 grew out streptococcus Agalactiae. She was treated with IV antibiotics at that time. 9. Hypoxia: Currently on nasal oxygen improving. Patient does have history of sleep apnea in which she requires CPAP machine. Patient denies any current shortness of breath at this time. We will continue to monitor. 10. urinary retention: Patient did require Clarke yesterday. Patient does have the urge to urinate and the Clarke will be pulled today 11. Disposition: continue with recommendations per infectious disease as noted above. Orthopedically stable, okay for discharge per medicine once medically stable. Possible discharge home with home health today. Patient will be discharged home with knee immobilizer at all times and toe-touch weightbearing with walker. Continue with Xarelto 2 weeks postoperatively due to previous blood clot. At her 2-week postop visit we will switch her over to baby aspirin 81 mg twice daily for an additional 2 weeks. Discharge home with Tylenol and OxyIR for pain control. Patient will require 2-week postop visit with myself or Dr. Carlos Barton for incision check and removal of dilip. Patient will also have to follow with infectious disease for management of antibiotics in 2 weeks. If patient is able to be discharged today that is fine from orthopedic standpoint. Please contact orthopedics with any concerns or questions.
[2019-01-31 07:36] VITALS: O2SAT 93
[2019-01-31 08:32] VITALS: BP 137/72; PULSE 75; RESP 20; TEMP 36.5; O2SAT 96
[2019-01-31] MEDS: oxyCODONE 5 MG Tablet PO ×2 (08:34→13:31)
[2019-01-31] MEDS: Hydroxychloroquine 200 MG Tablet PO (08:35)
[2019-01-31] MEDS: Pramipexole Di-HCl 0.5 MG Tablet 1.5 MG PO (08:36)
[2019-01-31] MEDS: Pantoprazole Sodium 20 MG Tablet PO (08:37)
[2019-01-31] MEDS: Lisinopril 10 MG Tablet PO (08:38)
[2019-01-31] MEDS: Gabapentin 600 MG Tablet 1200 MG PO (08:38)
[2019-01-31] MEDS: Famotidine 20 MG Tablet 40 MG PO (08:39)
--- NOTE | 2019-01-31 09:45 | CASEMGMT ---
LATESHA ORTIZ received message from [facility] regarding IV ATB referral. LATESHA ORTIZ returned call and spoke with Malinda. Picc line information faxed to [facility] and arrange for gravity feed infusions and start of care for 1400 today at home. LATESHA ORTIZ updated [facility] regarding infusion setup with [facility] and scheduled start of care for 1400. LATESHA ORTIZ updated the hospitalist the IV ATBs and HHC at home was finalized. LATESHA ORTIZ updated the patient regarding IV ATB setup with [facility] and [facility]. Patient voiced understanding and had no further questions. Patient states will pick her up at 1300. [facility] and [facility] updated with planned discharge time.
--- NOTE | 2019-01-31 10:22 | PCM.DC ---
- Discharge Diagnoses Current Active Problems: Current Active and Chronic Problems Infection of right knee (Acute) Septic joint (Acute) You will use the following diet at home:: Regular Your food should be the consistency of: Regular Discharge Activity: - - Knee immobilizer at all times, toe touch weightbearing with walker. Weight Bearing Status: Toe touch weight bearing Call your doctor if you observe: Fever of 101 or Higher, Shortness of breath, Dizziness, Fainting spells, Chest pain, Increased palpitations (irregular heartbeat), Uncontrolled pain Allergies/Adverse Reactions: Allergies hydrocodone bitartrate [From Lortab] Allergy (Intermediate, Verified 01/20/19 16:07) Other lips swell, ataxia etodolac Allergy (Verified 01/20/19 16:07) Unknown misoprostol Allergy (Verified 01/20/19 16:07) Unknown celecoxib Adverse Reaction (Intermediate, Verified 01/20/19 16:07) Other heart palpitations diclofenac [Diclofenac] Adverse Reaction (Mild, Verified 01/20/19 16:07) Abd cramps/diarrhea ketorolac tromethamine [From Toradol] Adverse Reaction (Mild, Verified 01/20/19 16:07) Other balance issues metoclopramide HCl [From Reglan] Adverse Reaction (Mild, Verified 01/20/19 16:07) Other worsens restless leg atorvastatin [From Lipitor] Adverse Reaction (Verified 01/20/19 16:07) Other FACE SPASMS clindamycin Adverse Reaction (Verified 01/20/19 16:07) Mucosal lesions Medications to take at Discharge Levothyroxine [Synthroid] 175 mcg PO DAILY 09/01/13 Ranitidine [Zantac] 300 mg PO DAILY 05/17/14 Omeprazole [Prilosec] 20 mg PO DAILY 12/13/16 Cholecalciferol (Vitamin D3) [Vitamin D3] 5,000 unit PO DAILY@1200 01/25/17 [place]-3 Fatty Acids/Fish Oil [Fish Oil 1,000 mg Capsule] 2,000 mg PO DAILY 03/21/18 Gabapentin 1,200 mg PO BID 08/01/18 Gabapentin [Neurontin] 600 mg PO .LUNCHTIME 08/01/18 Hydroxychloroquine [Plaquenil] 200 mg PO BIDCM 08/01/18 Lisinopril [Zestril] 10 mg PO DAILY 08/01/18 Pramipexole Di-HCl [Pramipexole Dihydrochloride] 1.5 tab PO DAILY 08/01/18 Pramipexole Di-HCl [Pramipexole Dihydrochloride] 3 mg PO QHS 08/01/18 Venlafaxine HCl [Effexor Xr] 1 tab PO QHS 08/01/18 Venlafaxine HCl [Venlafaxine HCl ER] 1 tab PO QHS 08/01/18 Cefepime HCl [Maxipime] 2 gm IV Q8 40 Days #120 vial 01/30/19 Oxycodone [Oxyir] 5 mg PO Q6H PRN PRN 5 Days #20 tab 01/31/19 Rivaroxaban [Xarelto] 10 mg PO DAILY@0600 #14 tab 01/31/19 The following prescriptions were given: Cefepime HCl [Maxipime] 2 gm IV Q8 40 Days #120 vial Prescription Printed Oxycodone [Oxyir] 5 mg PO Q6H PRN PRN 5 Days #20 tab PRN Reason: Pain Score 4-10/10 Prescription Printed Rivaroxaban [Xarelto] 10 mg PO DAILY@0600 #14 tab Transmission Status: Pending to [id number] Primary Care Physician: Gustavo Ceballos MD [Primary Care Provider] - Please follow up with your Primary Care Physician in: 1 week. Test Results: Test results from this visit will be discussed in further detail at your follow-up appointment, if applicable. Please Follow Up With: Major Barton MD When: 2 WEEKS Please Follow Up With: Zhen Bernal MD When: call his office.
--- NOTE | 2019-01-31 10:48 | PCM.PN.ID ---
Patient Problems: Active and Suspected Problems Infection of right knee (Acute) Septic joint (Acute) Subjective: Feeling ok, pain in leg controlled, no fever. Mild nausea this AM. - Physical Exam Vitals/I&O's: Vital Signs Temp Pulse Resp BP Pulse Ox 97.7 F L 75 20 H 137/72 H 96 01/31/19 08:32 01/31/19 08:32 01/31/19 08:32 01/31/19 08:32 01/31/19 08:32 Oxygen Flow Rate (L/min) 2 Oxygen Delivery Method Room Air Weight: 118.5 kg Body Mass Index (BMI) 44.8 Finger Stick Blood Glucose 112 Intake and Output for Last 24 Hours 01/29/19 01/30/19 01/31/19 23:59 23:59 23:59 Intake Total 3713.25 / 4363.25 4756.50 / 4756.50 479.75 / 479.75 Output Total 1675 / 2025 1575 / 1575 1050 / 1050 Balance 2038.25 / 2338.25 3181.50 / 3181.50 -570.25 / -570.25 General: Alert, Cooperative, No apparent distress Lungs: Clear to auscultation, Normal air movement Cardiovascular: Regular rate, Regular Rhythm Abdomen: Soft, Non Tender, Non-Distended Skin: No rashes Microbiology Past 72 Hours 01/28/19 Unknown Tissue - Knee Gram Stain - Final 01/28/19 Unknown Tissue - Knee Wound Culture - Final Enterobacter aerogenes Staphylococcus aureus 01/28/19 Unknown Tissue - Knee Anaerobic Culture - Final No anaerobic bacteria isolated. 01/28/19 Unknown Tissue - Knee Gram Stain - Final 01/28/19 Unknown Tissue - Knee Wound Culture - Final Staphylococcus aureus 01/28/19 Unknown Tissue - Knee Anaerobic Culture - Preliminary No growth in 48 hours. 01/28/19 Unknown Tissue - Knee Gram Stain - Final 01/28/19 Unknown Tissue - Knee Wound Culture - Final Staphylococcus aureus 01/28/19 Unknown Tissue - Knee Anaerobic Culture - Preliminary No growth in 48 hours. Laboratory Results 01/31/19 06:17: WBC 8.5, RBC 3.49 L, Hgb 9.5 L, Hct 30.3 L, MCV 86.8, MCH 27.2, MCHC 31.4 L, RDW Std Deviation 45.6 H, RDW Coeff of Sergio 14.3, Plt Count 260, MPV 9.1 Current Medications Acetaminophen (Tylenol) 1,000 mg PO Q8 [facility] Last Admin: 01/31/19 04:43 Dose: 1,000 mg Documented by: Cholecalciferol (Vitamin D) 5,000 unit PO DAILY@1200 [facility] Last Admin: 01/30/19 11:21 Dose: 5,000 unit Documented by: Cyclobenzaprine HCl (Cyclobenzaprine Hcl) 5 mg PO TID PRN PRN PRN Reason: spasms Last Admin: 01/31/19 02:53 Dose: 5 mg Documented by: Enteral Nutritional Formula (Ensure Surgery) 237 ml PO TIDCM [facility] Last Admin: 01/31/19 08:21 Dose: Not Given Documented by: Famotidine (Pepcid) 40 mg PO DAILY [facility] Last Admin: 01/31/19 08:39 Dose: 40 mg Documented by: Gabapentin (Neurontin) 1,200 mg PO BID [facility] Last Admin: 01/31/19 08:38 Dose: 1,200 mg Documented by: Gabapentin (Neurontin) 600 mg PO LUNCH [facility] Last Admin: 01/30/19 11:21 Dose: 600 mg Documented by: Hydroxychloroquine Sulfate (Plaquenil) 200 mg PO BIDCM [facility] Last Admin: 01/31/19 08:35 Dose: 200 mg Documented by: Sodium Chloride () 250 mls @ 15 mls/hr IV .[id number] PRN PRN Reason: Saline Flush Last Infusion: 01/31/19 08:46 Dose: Infused Documented by: Cefepime HCl 2 gm/ Sodium (Chloride) 100 mls @ 200 mls/hr IV Q8 [facility] Last Infusion: 01/31/19 05:12 Dose: Infused Documented by: Levothyroxine Sodium (Synthroid) 175 mcg PO DAILY@0600 [facility] Last Admin: 01/31/19 04:41 Dose: 175 mcg Documented by: Lisinopril (Zestril) 10 mg PO DAILY [facility] Last Admin: 01/31/19 08:38 Dose: 10 mg Documented by: Morphine Sulfate () 2 mg IV Q3H PRN PRN PRN Reason: Pain Score 6-10/10 Last Admin: 01/28/19 16:54 Dose: 2 mg Documented by: Ondansetron HCl (Zofran) 4 mg IV Q8H PRN PRN PRN Reason: NAUSEA/VOMITING Last Admin: 01/31/19 05:42 Dose: 4 mg Documented by: Oxycodone HCl (Oxyir) 5 - 10 mg PO Q4H PRN PRN PRN Reason: Pain Score 4-10/10 Last Admin: 01/31/19 08:34 Dose: 10 mg Documented by: Pantoprazole Sodium (Protonix) 20 mg PO DAILY [facility] Last Admin: 01/31/19 08:37 Dose: 20 mg Documented by: Pramipexole Dihydrochloride (Mirapex) 3 mg PO QHS [facility] Last Admin: 01/30/19 22:19 Dose: 3 mg Documented by: Pramipexole Dihydrochloride (Mirapex) 1.5 mg PO DAILY [facility] Last Admin: 01/31/19 08:36 Dose: 1.5 mg Documented by: Promethazine HCl (Phenergan) 12.5 mg IM Q6H PRN PRN; Protocol PRN Reason: NAUSEA/VOMITING Rivaroxaban (Xarelto) 10 mg PO DAILY@0600 [facility] Last Admin: 01/31/19 04:41 Dose: 10 mg Documented by: Senna/Docusate Sodium (Senokot-S, Aileen-Colace) 2 tablet PO BID [facility] Last Admin: 01/31/19 08:36 Dose: Not Given Documented by: Sodium Chloride () 10 - 40 ml IV UD PRN PRN Reason: SALINE FLUSH Last Admin: 01/31/19 05:42 Dose: 10 ml Documented by: Venlafaxine HCl (Effexor Xr) 75 mg PO QHS [facility] Last Admin: 01/30/19 22:07 Dose: 75 mg Documented by: Venlafaxine HCl (Effexor Xr) 150 mg PO QHS [facility] Last Admin: 01/30/19 22:08 Dose: 150 mg Documented by: Medical Necessity - Tobacco Use Smoking Status: Former smoker Tobacco Use: Cigarettes Route of nutrition/ use of supplements: [] Nutritional Intake: [] IV Site: [] Clarke Catheter: [] - Assessment/Plan Antibiotics: [] Assessment/Plan: [] Active and Suspected Problems Infection of right knee (Acute) Septic joint (Acute) 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 Barton 01/28/19. Plan on 6 week course of cefepime with stop date 03/11/19, weekly bmp/cbc/esr. ID followup with me in 2 weeks. Rx written for labs and abx. Will follow
--- NOTE | 2019-01-31 10:53 | DS.PCM_ITS ---
Discharge Date and Diagnosis - Problem List Patient Problems: Active and Suspected Problems Infection of right knee (Acute) Septic joint (Acute) Date of Admission: 01/27/19 Date of Discharge: 01/31/19 - Primary Discharge Diagnosis Active and Suspected Problems MSSA/Enterobacter aerogenes septic arthritis of prosthetic right knee, status post removal of the total knee replacement with placement of articulating antibiotic spacer, placement of nonbiodegradable antibiotic delivery system. - Secondary Discharge Diagnosis Chronic Problems History of DVT (deep vein thrombosis) (Chronic) Septic arthritis of knee, right (Chronic) Hx of total knee replacement (Chronic) right Restless leg (Chronic) RENNY (obstructive sleep apnea) (Chronic) Hypothyroidism (Chronic) Diverticulosis of colon without diverticulitis (Chronic) Depression (Chronic) Postphlebitic syndrome with inflammation (Chronic) Lumbar disc disease (Chronic) History of Graves' disease (Chronic) Diabetes mellitus (Chronic) Renal insufficiency (Chronic) Presence of IVC filter (Chronic) Obesity (Chronic) Edema leg (Chronic) Leg swelling (Chronic) DVT of lower extremity (deep venous thrombosis) (Chronic) Hospital Course and Treatment Imaging Results: Clinical Impression(s) from Imaging Studies Venous Duplex 01/27/19 18:39 IMPRESSION: No evidence of deep venous thrombosis of the right lower extremity. Probable Santiago's cyst of the popliteal fossa. Electronically Signed: Gary Andrea MD at 19:45 EDT , Service support , Knee X-Ray 01/28/19 10:59 IMPRESSION: Gross alignment following revision of knee replacement. Expected operative changes. Soft tissue edema. No destructive bony process. Electronically Signed: Danilo Sullivan MD ([place]) at 15:44 EDT , Service support , Dr. Erwin, orthopedic surgery. Dr. Bernal, infectious disease. Operations: total knee replacement - Removal of total knee replacement, placement of nonbiodegradable antibiotic delivery system. Procedures: None Summary of Care Provided: Patient seen and examined on the day of discharge and appeared to be stable to be discharged home with home health. Her right knee pain is manageable with current pain medication regimen. She denies fever chills. Her vital signs are stable. The patient is a 58 year old F patient presented to the emergency room because of right knee pain and swelling and she was found to have septic arthritis of the right prosthetic knee joint. She was treated with IV antibiotics and she underwent removal of the total knee replacement with placement of articulating antibiotic spacer, placement of nonbiodegradable antibiotic delivery system. She was treated with IV Zosyn and vancomycin. Patient was afebrile throughout the hospital stay and she had no leukocytosis. Wound culture revealed MSSA and Enterobacter aerogenes. Infectious disease consulted and recommended to start patient on IV cefepime. Her other medical problems were stable throughout this hospital stay. She did have anemia which is both chronic and exaggerated white blood loss during surgery but her hemoglobin remained above 9 g/dL and there was no indication for blood transfusion. Infectious disease recommended to keep patient on IV cefepime every 8 hours with end date of March 11, 2019. Patient discharged home with home health in a stable medical condition, discharged on IV cefepime with end date of March 11, 2019, discharged on Xarelto 10 mg p.o. daily for DVT per flexes for 2 weeks, discharged on OxyIR PRN for pain, activity based on orthopedic surgery recommendations was told to touch weightbearing with walker, knee immobilizer at all times, plan to follow-up with orthopedic surgery in 2 weeks, follow-up with infectious disease in 2 weeks, recommended follow-up with PCP in 1 week. Patient Problems: Active and Suspected Problems Infection of right knee (Acute) Septic joint (Acute) - Physical Exam Vitals/I&O's: Vital Signs Temp Pulse Resp BP Pulse Ox 97.7 F L 75 20 H 137/72 H 96 01/31/19 08:32 01/31/19 08:32 01/31/19 08:32 01/31/19 08:32 01/31/19 08:32 Oxygen Flow Rate (L/min) 2 Oxygen Delivery Method Room Air Weight: 261 lb 3.964 oz Body Mass Index (BMI) 44.8 Finger Stick Blood Glucose 112 Intake and Output for Last 24 Hours 01/29/19 01/30/19 01/31/19 23:59 23:59 23:59 Intake Total 3713.25 / 4363.25 4756.50 / 4756.50 479.75 / 479.75 Output Total 1675 / 2024 1575 / 1575 1050 / 1050 Balance 8. / 2338. 3181.50 / 3181.50 -570.25 / -570.25 General: Alert, Oriented x3, Cooperative, No apparent distress HEENT: Atraumatic, PERRLA, EOMI, Normocephalic Oral: Moist Mucosa, No Gingival or Mucosal Lesions/ Ulcerations Neck: Supple, No JVD, Negative Carotid Bruits, Trachea Midline, Thyroid Normal Size and Texture Lungs: Clear to auscultation, Normal air movement, No rhonchi, No wheeze, No rales Cardiovascular: Regular rate, Regular Rhythm, Normal S1, Normal S2 Abdomen: Bowel Sounds Present, Soft, Non Tender, Non-Distended, No Hepato-splenomegaly, Obese Extremities: No clubbing, No cyanosis, No edema Skin: No rashes, Incision Lymphatic: No Cervical, Supraclavicular, or Inguinal Adenopathy Neurological: Cranial nerves II-XII grossly intact, Neuro grossly intact Psych/Mental Status: Normal Affect, Appropriate Microbiology Past 72 Hours 01/28/19 Unknown Tissue - Knee Gram Stain - Final 01/28/19 Unknown Tissue - Knee Wound Culture - Final Enterobacter aerogenes Staphylococcus aureus 01/28/19 Unknown Tissue - Knee Anaerobic Culture - Final No anaerobic bacteria isolated. 01/28/19 Unknown Tissue - Knee Gram Stain - Final 01/28/19 Unknown Tissue - Knee Wound Culture - Final Staphylococcus aureus 01/28/19 Unknown Tissue - Knee Anaerobic Culture - Preliminary No growth in 48 hours. 01/28/19 Unknown Tissue - Knee Gram Stain - Final 01/28/19 Unknown Tissue - Knee Wound Culture - Final Staphylococcus aureus 01/28/19 Unknown Tissue - Knee Anaerobic Culture - Preliminary No growth in 48 hours. Laboratory Results 01/31/19 06:17: WBC 8.5, RBC 3.49 L, Hgb 9.5 L, Hct 30.3 L, MCV 86.8, MCH 27.2, MCHC 31.4 L, RDW Std Deviation 45.6 H, RDW Coeff of Sergio 14.3, Plt Count 260, MPV 9.1 Current Medications Acetaminophen (Tylenol) 1,000 mg PO Q8 [facility] Last Admin: 01/31/19 04:43 Dose: 1,000 mg Documented by: Cholecalciferol (Vitamin D) 5,000 unit PO DAILY@1200 [facility] Last Admin: 01/30/19 11:21 Dose: 5,000 unit Documented by: Cyclobenzaprine HCl (Cyclobenzaprine Hcl) 5 mg PO TID PRN PRN PRN Reason: spasms Last Admin: 01/31/19 02:53 Dose: 5 mg Documented by: Enteral Nutritional Formula (Ensure Surgery) 237 ml PO TIDCM [facility] Last Admin: 01/31/19 08:21 Dose: Not Given Documented by: Famotidine (Pepcid) 40 mg PO DAILY [facility] Last Admin: 01/31/19 08:39 Dose: 40 mg Documented by: Gabapentin (Neurontin) 1,200 mg PO BID [facility] Last Admin: 01/31/19 08:38 Dose: 1,200 mg Documented by: Gabapentin (Neurontin) 600 mg PO LUNCH [facility] Last Admin: 01/30/19 11:21 Dose: 600 mg Documented by: Hydroxychloroquine Sulfate (Plaquenil) 200 mg PO BIDCM [facility] Last Admin: 01/31/19 08:35 Dose: 200 mg Documented by: Sodium Chloride () 250 mls @ 15 mls/hr IV .[id number] PRN PRN Reason: Saline Flush Last Infusion: 01/31/19 08:46 Dose: Infused Documented by: Cefepime HCl 2 gm/ Sodium (Chloride) 100 mls @ 200 mls/hr IV Q8 [facility] Last Infusion: 01/31/19 05:12 Dose: Infused Documented by: Levothyroxine Sodium (Synthroid) 175 mcg PO DAILY@0600 [facility] Last Admin: 01/31/19 04:41 Dose: 175 mcg Documented by: Lisinopril (Zestril) 10 mg PO DAILY [facility] Last Admin: 01/31/19 08:38 Dose: 10 mg Documented by: Morphine Sulfate () 2 mg IV Q3H PRN PRN PRN Reason: Pain Score 6-10/10 Last Admin: 01/28/19 16:54 Dose: 2 mg Documented by: Ondansetron HCl (Zofran) 4 mg IV Q8H PRN PRN PRN Reason: NAUSEA/VOMITING Last Admin: 01/31/19 05:42 Dose: 4 mg Documented by: Oxycodone HCl (Oxyir) 5 - 10 mg PO Q4H PRN PRN PRN Reason: Pain Score 4-10/10 Last Admin: 01/31/19 08:34 Dose: 10 mg Documented by: Pantoprazole Sodium (Protonix) 20 mg PO DAILY [facility] Last Admin: 01/31/19 08:37 Dose: 20 mg Documented by: Pramipexole Dihydrochloride (Mirapex) 3 mg PO QHS [facility] Last Admin: 01/30/19 22:19 Dose: 3 mg Documented by: Pramipexole Dihydrochloride (Mirapex) 1.5 mg PO DAILY [facility] Last Admin: 01/31/19 08:36 Dose: 1.5 mg Documented by: Promethazine HCl (Phenergan) 12.5 mg IM Q6H PRN PRN; Protocol PRN Reason: NAUSEA/VOMITING Rivaroxaban (Xarelto) 10 mg PO DAILY@0600 [facility] Last Admin: 01/31/19 04:41 Dose: 10 mg Documented by: Senna/Docusate Sodium (Senokot-S, Aileen-Colace) 2 tablet PO BID [facility] Last Admin: 01/31/19 08:36 Dose: Not Given Documented by: Sodium Chloride () 10 - 40 ml IV UD PRN PRN Reason: SALINE FLUSH Last Admin: 01/31/19 05:42 Dose: 10 ml Documented by: Venlafaxine HCl (Effexor Xr) 75 mg PO QHS [facility] Last Admin: 01/30/19 22:07 Dose: 75 mg Documented by: Venlafaxine HCl (Effexor Xr) 150 mg PO QHS [facility] Last Admin: 01/30/19 22:08 Dose: 150 mg Documented by: Discharge Activity: - - Knee immobilizer at all times, toe touch weightbearing with walker. Weight Bearing Status: Toe touch weight bearing Call your doctor if you observe: Fever of 101 or Higher, Shortness of breath, Dizziness, Fainting spells, Chest pain, Increased palpitations (irregular heartbeat), Uncontrolled pain Home Medications: Medications to take at Discharge Levothyroxine [Synthroid] 175 mcg PO DAILY 09/01/13 Ranitidine [Zantac] 300 mg PO DAILY 05/17/14 Omeprazole [Prilosec] 20 mg PO DAILY 12/13/16 Cholecalciferol (Vitamin D3) [Vitamin D3] 5,000 unit PO DAILY@1200 01/25/17 [place]-3 Fatty Acids/Fish Oil [Fish Oil 1,000 mg Capsule] 2,000 mg PO DAILY 03/21/18 Gabapentin 1,200 mg PO BID 08/01/18 Gabapentin [Neurontin] 600 mg PO .LUNCHTIME 08/01/18 Hydroxychloroquine [Plaquenil] 200 mg PO BIDCM 08/01/18 Lisinopril [Zestril] 10 mg PO DAILY 08/01/18 Pramipexole Di-HCl [Pramipexole Dihydrochloride] 1.5 tab PO DAILY 08/01/18 Pramipexole Di-HCl [Pramipexole Dihydrochloride] 3 mg PO QHS 08/01/18 Venlafaxine HCl [Effexor Xr] 1 tab PO QHS 08/01/18 Venlafaxine HCl [Venlafaxine HCl ER] 1 tab PO QHS 08/01/18 Cefepime HCl [Maxipime] 2 gm IV Q8 40 Days #120 vial 01/30/19 Oxycodone [Oxyir] 5 mg PO Q6H PRN PRN 5 Days #20 tab 01/31/19 Rivaroxaban [Xarelto] 10 mg PO DAILY@0600 #14 tab 01/31/19 Following Prescrptions Were Given to Patient: Cefepime HCl [Maxipime] 2 gm IV Q8 40 Days #120 vial Prescription Printed Oxycodone [Oxyir] 5 mg PO Q6H PRN PRN 5 Days #20 tab PRN Reason: Pain Score 4-10/10 Prescription Printed Rivaroxaban [Xarelto] 10 mg PO DAILY@0600 #14 tab Transmission Status: Received by [facility]/pharmacy #[id number] Primary Care Physician: Gustavo Ceballos MD [Primary Care Provider] - Please follow up with your Primary Care Physician in: 1 week. Please Follow Up With: Major Erwin MD When: 2 WEEKS Please Follow Up With: Zhen Bernal MD When: call his office. Disposition: Home with Home Health Minutes spent on discharge:: 33 Patient Condition:: Stable Medical Necessity - Tobacco Use Smoking Status: Former smoker Tobacco Use: Cigarettes Meaningful Use Info Meaningful Use Diagnoses (Choose all that apply): None applicable Code Visit Inpatient E&M: 66575 Disch Hosp
[2019-01-31] MEDS: Gabapentin 600 MG Tablet PO (11:37)
[2019-01-31 13:30] VITALS: BP 137/65; PULSE 75; RESP 20; TEMP 36.8; O2SAT 93
--- NOTE | 2019-02-01 15:25 | CASEMGMT ---
LATESHA ORTIZ Discharge Follow-Up Phone Call. Lacyue: 14 Strata: 10 Discharge Date: 01/31/19 Adm Dx: Septic Joint, Rt Knee ATB spacer. Call to pt to inquire about how she has been doing since being discharged from the hospital. She states she has been doing alright. She states [facility] came out to her home yesterday for start of care and IV atb teaching. 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 She denies having any questions about the medications or discharge instructions. She states she made an appt for Dr Barton on February 09 and that she needs to call Dr Bernal's office yet to make an appt. She states she has his contact information. She denies having any other concerns or needs. LATESHA ORTIZ thanked pt for choosing [facility]. Stef HAND RN, CM
== END 2019-01-31 13:36 | disposition home health service (06) | DRG 467 ==
LOC: ED 19:55 → MS3 22:33
PROVIDERS: Internal Medicine; Specialist; Admitting Provider Hospitalist; Emergency Provider Emergency Medicine; Family Provider Family Medicine; PCP Family Medicine; Referring Provider Hospitalist; Visit Provider Hospitalist
PROC: 0SPC0JZ Removal of Synthetic Substitute from Right Knee Joint, Open Approach (ICD-10-PCS; CPT 27488; principal; 2019-01-28 08:00)
DX: T84.53XA Infection and inflammatory reaction due to internal right knee prosthesis, initial encounter (principal); Z68.41 Body mass index [BMI] 40.0-44.9, adult; M00.061 Staphylococcal arthritis, right knee; M00.861 Arthritis due to other bacteria, right knee; Z96.653 Presence of artificial knee joint, bilateral; G25.81 Restless legs syndrome; K21.9 Gastro-esophageal reflux disease without esophagitis; I10 Essential (primary) hypertension; M06.9 Rheumatoid arthritis, unspecified; G62.9 Polyneuropathy, unspecified; M15.9 Polyosteoarthritis, unspecified; E03.9 Hypothyroidism, unspecified; R33.9 Retention of urine, unspecified; B95.61 Methicillin susceptible Staphylococcus aureus infection as the cause of diseases classified elsewhere; B96.89 Other specified bacterial agents as the cause of diseases classified elsewhere; E66.9 Obesity, unspecified; Z87.891 Personal history of nicotine dependence; Z86.718 Personal history of other venous thrombosis and embolism; G47.33 Obstructive sleep apnea (adult) (pediatric)
CPT/HCPCS: 36415; 36569; 73560; 80048; 80202; 82962; 84443; 85025; 85027; 85652; 86140; 87015; 87070; 87075; 87077; 87102; 87116; 87176; 87186; 87205; 87206; 93005; 93971; 97110; 97161; 97165; 97530; 97535; 99251; 99285; C1776; J7040; J7050; J7120; A4216; G0463; J2405; J3260

== ENCOUNTER 2019-02-18 23:02 | Emergency (ER) | payer BC, SELFPAY ==
[2019-01-27 20:47] VITALS: BMI 44.8
[2019-02-18 23:03] VITALS: BP 164/84; PULSE 75; RESP 18; TEMP 36.1; O2SAT 98; BMI 42.9
--- NOTE | 2019-02-19 00:02 | ED.VISSUMM ---
- ER Visit Summary Date of Service: 02/19/19 Chief Complaint: PICC line is clogged History of Present Illness: The patient is a 58 F who has a right upper extremity PICC line. She attempted to administer her 10 PM antibiotics for her septic knee, and the catheter was not flowing. Physical Examination: Exam unremarkable. Test Results: None performed. Emergency Department Course and Treatment: I initially ordered Cathflo, but upon nursing evaluation, the PICC line appeared normal and was able to flush. Nursing started her antibiotics. She had no complications. Treatment Plan: As above Disposition: Discharge Impression: 1. PICC line dysfunction This note was generated with LoveIt dictation software. It may contain incorrect words, spelling, and punctuation that were not noted in review of the chart prior to signing ED Disposition - Plan for ED Patient: Referrals: Gustavo Ceballos MD [Primary Care Provider] -
--- NOTE | 2019-02-19 00:05 | ED.DEP ---
ED Disposition - Plan for ED Patient: Instructions: Flushing Your PICC Line at Home Referrals: Gustavo Ceballos MD [Primary Care Provider] -
--- NOTE | 2019-02-19 00:33 | ED.RN ---
THIS RN REMOVED THE EXTENSION TUBING FROM PICC LINE, CLEANSED AREA WITH ALCOHOL AND FLUSHED PICC LINE. PICC LINE FLUSHED EASILY BUT NO BLOOD RETURN NOTED. DRESSING CHANGED PER PICC LINE PROTOCOL. PT HOME MEDS HUNG TO GRAVOTY PER PT HOME PROTOCOL. ENTIRE CEFOTAN INFUSED. LINE FLUSHED EASILY, CLAMPED, GREEN CAP PLACED
[2019-02-19 00:37] VITALS: RESP 16
== END 2019-02-19 01:04 | disposition home or self-care (01) ==
LOC: ED 23:16
PROVIDERS: Emergency Provider Emergency Medicine; Family Provider Family Medicine; PCP Family Medicine
DX: T82.594A Other mechanical complication of infusion catheter, initial encounter (principal); M00.9 Pyogenic arthritis, unspecified; G47.33 Obstructive sleep apnea (adult) (pediatric); Z86.718 Personal history of other venous thrombosis and embolism; Z87.891 Personal history of nicotine dependence; Z79.2 Long term (current) use of antibiotics; Z79.02 Long term (current) use of antithrombotics/antiplatelets
CPT/HCPCS: 99282; J2997; A4216

== ENCOUNTER → 2019-02-20 | Outpatient (CLI) | payer BC, SELFPAY ==
[2019-02-18 23:03] VITALS: BMI 42.9
[2019-02-20 17:58] LABS: Hemoglobin 11.5 g/dL (12.0-15.0); Mean Corp Hgb Conc 31.1 g/dL (32-36); Mean Corpuscular Volume 86.9 fL (81-99); Mean Platelet Vol. 10.4 fl (6.2-12.0); Platelet Count 173 K/mm3 (150-450); RBC Distribution Width CV 15.3 % (11.6-14.6); RBC Distribution Width SD 48.3 fl (35.1-43.9); Red Blood Count 4.26 M/mm3 (4.2-5.4); White Blood Count 5.5 K/mm3 (4.4-11.0)
[2019-02-20 18:20] LABS: Erythrocyte Sedimentation Rate 19 mm/hr (0-30)
[2019-02-20 18:23] LABS: Anion Gap 7 (5-15); BUN 14 mg/dL (7-18); BUN/Creat Ratio 17.2 RATIO (10-20); Chloride 106 mmol/L (98-107); Creatinine, Serum 0.81 mg/dL (0.55-1.02); EST Glomerular Filtration Rate 77 mL/min (>60); Est Glom Filt Rate - Afr Amer 93 mL/min (>60); Glucose 104 mg/dL (74-106); Potassium 3.9 mmol/L (3.5-5.1); Sodium Level 144 mmol/L (136-145)
== END | disposition home or self-care (01) ==
LOC: LABSPEC 17:45
PROVIDERS: Family Provider Family Medicine; PCP Family Medicine; Visit Provider Internal Medicine Infectious Disease
DX: A49.01 Methicillin susceptible Staphylococcus aureus infection, unspecified site (principal)
CPT/HCPCS: 80048; 85027; 85652

== ENCOUNTER → 2019-02-22 14:40 | Outpatient (CLI) | payer BC, SELFPAY ==
[2019-02-18 23:03] VITALS: BMI 42.9
[2019-02-22] MEDS: Alteplase 2 MG/2 ML Vial IV (15:06)
== END ==
PROVIDERS: Family Provider Family Medicine; PCP Family Medicine; Referring Provider Internal Medicine Infectious Disease; Visit Provider Internal Medicine Infectious Disease
DX: Z45.2 Encounter for adjustment and management of vascular access device (principal)
CPT/HCPCS: 36593; J2997; A4216

== ENCOUNTER 2019-02-27 12:54 | Outpatient (RCR) | payer BC, SELFPAY ==
[2019-01-27 20:47] VITALS: BMI 44.8
[2019-02-06 13:12] LABS: Anion Gap 4 (5-15); BUN 10 mg/dL (7-18); BUN/Creat Ratio 13.1 RATIO (10-20); Calcium,Total 8.7 mg/dL (8.5-10.1); Chloride 106 mmol/L (98-107); Creatinine, Serum 0.76 mg/dL (0.55-1.02); EST Glomerular Filtration Rate 82 mL/min (>60); Est Glom Filt Rate - Afr Amer 100 mL/min (>60); Glucose 96 mg/dL (74-106); Potassium 3.4 mmol/L (3.5-5.1); Sodium Level 142 mmol/L (136-145)
[2019-02-06 13:16] LABS: Hematocrit 34.4 % (37-47); Hemoglobin 10.5 g/dL (12.0-15.0); Mean Corp Hgb Conc 30.5 g/dL (32-36); Mean Corpuscular Hgb 26.6 pg (27.0-32.0); Mean Corpuscular Volume 87.1 fL (81-99); Mean Platelet Vol. 9.6 fl (6.2-12.0); Platelet Count 298 K/mm3 (150-450); RBC Distribution Width SD 44.6 fl (35.1-43.9); Red Blood Count 3.95 M/mm3 (4.2-5.4); White Blood Count 7.1 K/mm3 (4.4-11.0)
[2019-02-06 13:28] LABS: Erythrocyte Sedimentation Rate 59 mm/hr (0-30)
[2019-02-13 13:58] LABS: Anion Gap 5 (5-15); BUN 12 mg/dL (7-18); BUN/Creat Ratio 16.7 RATIO (10-20); Calcium,Total 8.9 mg/dL (8.5-10.1); Chloride 107 mmol/L (98-107); Creatinine, Serum 0.72 mg/dL (0.55-1.02); EST Glomerular Filtration Rate 88 mL/min (>60); Est Glom Filt Rate - Afr Amer 107 mL/min (>60); Glucose 99 mg/dL (74-106); Potassium 3.8 mmol/L (3.5-5.1); Sodium Level 143 mmol/L (136-145)
[2019-02-13 14:11] LABS: Erythrocyte Sedimentation Rate 38 mm/hr (0-30)
[2019-02-13 14:12] LABS: Hematocrit 38.9 % (37-47); Hemoglobin 11.8 g/dL (12.0-15.0); Mean Corp Hgb Conc 30.3 g/dL (32-36); Mean Corpuscular Hgb 26.7 pg (27.0-32.0); Mean Platelet Vol. 10.4 fl (6.2-12.0); Platelet Count 199 K/mm3 (150-450); RBC Distribution Width CV 14.6 % (11.6-14.6); RBC Distribution Width SD 46.8 fl (35.1-43.9); Red Blood Count 4.42 M/mm3 (4.2-5.4); White Blood Count 5.9 K/mm3 (4.4-11.0)
[2019-02-27 12:17] LABS: Erythrocyte Sedimentation Rate 22 mm/hr (0-30)
[2019-02-27 12:24] LABS: Anion Gap 6 (5-15); BUN 15 mg/dL (7-18); BUN/Creat Ratio 19.8 RATIO (10-20); Calcium,Total 9.2 mg/dL (8.5-10.1); Chloride 109 mmol/L (98-107); Creatinine, Serum 0.76 mg/dL (0.55-1.02); EST Glomerular Filtration Rate 83 mL/min (>60); Est Glom Filt Rate - Afr Amer 100 mL/min (>60); Glucose 119 mg/dL (74-106); Hematocrit 37.8 % (37-47); Hemoglobin 11.6 g/dL (12.0-15.0); Mean Corp Hgb Conc 30.7 g/dL (32-36); Mean Corpuscular Hgb 26.7 pg (27.0-32.0); Mean Corpuscular Volume 86.9 fL (81-99); Mean Platelet Vol. 10.8 fl (6.2-12.0); Platelet Count 140 K/mm3 (150-450); RBC Distribution Width CV 15.2 % (11.6-14.6); RBC Distribution Width SD 48.7 fl (35.1-43.9); Red Blood Count 4.35 M/mm3 (4.2-5.4); Sodium Level 142 mmol/L (136-145); White Blood Count 5.6 K/mm3 (4.4-11.0)
== END 2019-02-27 18:00 | disposition home or self-care (01) ==
LOC: HHLAB 12:54
PROVIDERS: Family Provider Family Medicine; PCP Family Medicine; Referring Provider Internal Medicine Infectious Disease; Visit Provider Internal Medicine Infectious Disease
DX: T84.53XA Infection and inflammatory reaction due to internal right knee prosthesis, initial encounter (principal); B95.61 Methicillin susceptible Staphylococcus aureus infection as the cause of diseases classified elsewhere; F32.9 Major depressive disorder, single episode, unspecified; F41.9 Anxiety disorder, unspecified; Z45.2 Encounter for adjustment and management of vascular access device; Z79.2 Long term (current) use of antibiotics; Z89.521 Acquired absence of right knee; Z96.652 Presence of left artificial knee joint; Z51.81 Encounter for therapeutic drug level monitoring; Z86.718 Personal history of other venous thrombosis and embolism; Z79.51 Long term (current) use of inhaled steroids; Z87.891 Personal history of nicotine dependence
CPT/HCPCS: 80048; 85027; 85652

== ENCOUNTER 2019-03-13 11:58 | Outpatient (RCR) | payer BC, SELFPAY ==
[2019-03-06 18:11] LABS: Hematocrit 38.3 % (37-47); Hemoglobin 12.1 g/dL (12.0-15.0); Mean Corp Hgb Conc 31.6 g/dL (32-36); Mean Corpuscular Hgb 27.7 pg (27.0-32.0); Mean Corpuscular Volume 87.6 fL (81-99); Mean Platelet Vol. 10.9 fl (6.2-12.0); Platelet Count 164 K/mm3 (150-450); RBC Distribution Width CV 15.3 % (11.6-14.6); RBC Distribution Width SD 48.9 fl (35.1-43.9); Red Blood Count 4.37 M/mm3 (4.2-5.4); White Blood Count 6.3 K/mm3 (4.4-11.0)
[2019-03-06 19:06] LABS: Erythrocyte Sedimentation Rate 22 mm/hr (0-30)
[2019-03-07 19:05] LABS: Anion Gap 6 (5-15); BUN 21 mg/dL (7-18); BUN/Creat Ratio 19.3 RATIO (10-20); Chloride 112 mmol/L (98-107); Creatinine, Serum 1.09 mg/dL (0.55-1.02); EST Glomerular Filtration Rate 55 mL/min (>60); Est Glom Filt Rate - Afr Amer 66 mL/min (>60); Glucose 105 mg/dL (74-106); Potassium 3.8 mmol/L (3.5-5.1); Sodium Level 144 mmol/L (136-145)
[2019-03-13 15:11] LABS: Absolute Lymphocyte Count 1.56 X10^3/uL (0.83-4.51); Absolute Neutrophil Count 4.2 X10^3/uL (2.0-7.7); Basophil# 0.08 X10^3/uL; Basophil% 1.2 % (0-1); Eosinophil# 0.33 X10^3/uL; Hematocrit 38.2 % (37-47); Hemoglobin 11.6 g/dL (12.0-15.0); Lymphocyte # 1.56 X10^3/ul (4.0); Lymphocyte % 23.5 % (19-41); Mean Corp Hgb Conc 30.4 g/dL (32-36); Mean Corpuscular Hgb 26.4 pg (27.0-32.0); Mean Platelet Vol. 10.6 fl (6.2-12.0); Monocyte% 7.5 % (0-10); NRBC Flagged by Analyzer 0 % (0-5); Neutrophil # 4.15 X10^3/uL (2.7-7.7); Neutrophil % 62.3 % (47-70); Platelet Count 201 K/mm3 (150-450); RBC Distribution Width CV 15.5 % (11.6-14.6); RBC Distribution Width SD 49.3 fl (35.1-43.9); Red Blood Count 4.39 M/mm3 (4.2-5.4); White Blood Count 6.7 K/mm3 (4.4-11.0)
[2019-03-13 15:18] LABS: Anion Gap 4 (5-15); BUN 16 mg/dL (7-18); BUN/Creat Ratio 21.1 RATIO (10-20); Calcium,Total 9.2 mg/dL (8.5-10.1); Chloride 110 mmol/L (98-107); Creatinine, Serum 0.76 mg/dL (0.55-1.02); EST Glomerular Filtration Rate 83 mL/min (>60); Est Glom Filt Rate - Afr Amer 101 mL/min (>60); Glucose 110 mg/dL (74-106); Sodium Level 143 mmol/L (136-145)
[2019-03-13 15:19] LABS: Erythrocyte Sedimentation Rate 22 mm/hr (0-30)
== END 2019-03-13 18:00 | disposition home or self-care (01) ==
LOC: HHLAB 11:58
PROVIDERS: Specialist; Family Provider Family Medicine; PCP Family Medicine; Referring Provider Internal Medicine Infectious Disease; Visit Provider Internal Medicine Infectious Disease
DX: T84.53XA Infection and inflammatory reaction due to internal right knee prosthesis, initial encounter (principal); B95.61 Methicillin susceptible Staphylococcus aureus infection as the cause of diseases classified elsewhere; F32.9 Major depressive disorder, single episode, unspecified; F41.9 Anxiety disorder, unspecified; Z45.2 Encounter for adjustment and management of vascular access device; Z79.2 Long term (current) use of antibiotics; Z89.521 Acquired absence of right knee; Z96.652 Presence of left artificial knee joint; Z51.81 Encounter for therapeutic drug level monitoring; Z86.718 Personal history of other venous thrombosis and embolism; Z79.51 Long term (current) use of inhaled steroids; Z87.891 Personal history of nicotine dependence
CPT/HCPCS: 80048; 85025; 85027; 85652; 86140

== ENCOUNTER → 2019-03-13 12:04 | Outpatient (CLI) | payer BC, SELFPAY ==
[2019-02-18 23:03] VITALS: BMI 42.9
== END ==
PROVIDERS: Family Provider Family Medicine; PCP Family Medicine; Referring Provider Specialist; Visit Provider Specialist
DX: T84.53XA Infection and inflammatory reaction due to internal right knee prosthesis, initial encounter (principal)

== ENCOUNTER → 2019-03-27 15:55 | Outpatient (CLI) | payer BC, SELFPAY ==
[2019-03-27 16:45] LABS: Absolute Lymphocyte Count 1.98 X10^3/uL (0.83-4.51); Absolute Neutrophil Count 4.7 X10^3/uL (2.0-7.7); Basophil% 1.3 % (0-1); Eosinophil# 0.31 X10^3/uL; Hematocrit 37.8 % (37-47); Hemoglobin 11.8 g/dL (12.0-15.0); Lymphocyte # 1.98 X10^3/ul (4.0); Lymphocyte % 25.7 % (19-41); Mean Corp Hgb Conc 31.2 g/dL (32-36); Mean Corpuscular Hgb 26.2 pg (27.0-32.0); Mean Platelet Vol. 11.1 fl (6.2-12.0); Monocyte# 0.62 X10^3/uL; NRBC Flagged by Analyzer 0 % (0-5); Neutrophil # 4.66 X10^3/uL (2.7-7.7); Neutrophil % 60.5 % (47-70); POSITIVE COUNT YES; Platelet Count 111 K/mm3 (150-450); RBC Distribution Width CV 14.3 % (11.6-14.6); RBC Distribution Width SD 43.6 fl (35.1-43.9); White Blood Count 7.7 K/mm3 (4.4-11.0)
[2019-03-27 17:06] LABS: Differential Indicated SCAN CRITERIA MET
[2019-03-27 17:15] LABS: Erythrocyte Sedimentation Rate 58 mm/hr (0-30)
== END ==
PROVIDERS: Family Provider Family Medicine; PCP Family Medicine; Referring Provider Specialist; Visit Provider Specialist
DX: T84.53XA Infection and inflammatory reaction due to internal right knee prosthesis, initial encounter (principal)
CPT/HCPCS: 36415; 85025; 85652; 86140

== ENCOUNTER → 2019-03-31 08:57 | Outpatient (CLI) | payer BC, SELFPAY ==
[2019-04-03 10:05] LABS: RBC /Synovial Fluid 0.032 10^6/uL (0); Synovial Fld Mononuclear WBC % 21.2 %; Synovial Fld Polynuclear WBC # 5.579 10^3/uL; Synovial Fld Polynuclear WBC % 78.8 %
[2019-04-03 10:11] LABS: AUTO B FLUID DILUENT BKGD CT WBC <0.1 RBC <0.01 (W<.1,R<.01); Appearance /Synovial Fluid Sl Cl (CLEAR); Color / Synovial Fluid Pink (Pale Yellow); Source / Synovial Fluid RIGHT KNEE
[2019-04-03 10:19] LABS: Lymph 19 %; Monocyte /Synovial Fluid 6 %; Neutrophil 75 % (0-25)
[2019-04-03 10:20] LABS: Body Fluid QC Type(s) BF1Q
[2019-04-04 13:32] LABS: Pathologist Comment Reviewed
== END ==
PROVIDERS: Family Provider Family Medicine; PCP Family Medicine; Referring Provider Specialist; Visit Provider Specialist
DX: T84.53XA Infection and inflammatory reaction due to internal right knee prosthesis, initial encounter (principal)
CPT/HCPCS: 87015; 87070; 87075; 87077; 87101; 87106; 87116; 87205; 87206; 89050; 89051

== ENCOUNTER 2019-05-19 05:28 | Inpatient (IN) | payer BC, SELFPAY ==
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
[2019-05-02 15:52] VITALS: BP 150/82; PULSE 77; RESP 16; TEMP 36.6; O2SAT 96; BMI 47.8
[2019-05-02 17:36] LABS: Erythrocyte Sedimentation Rate 52 mm/hr (0-30)
[2019-05-02 17:41] LABS: Absolute Lymphocyte Count 2.02 X10^3/uL (0.83-4.51); Basophil# 0.05 X10^3/uL; Basophil% 0.7 % (0-1); Eosinophil# 0.31 X10^3/uL; Eosinophils% 4.4 % (0-5); Hematocrit 41.2 % (37-47); Hemoglobin 12.5 g/dL (12.0-15.0); Lymphocyte # 2.02 X10^3/ul (4.0); Lymphocyte % 28.7 % (19-41); Mean Corp Hgb Conc 30.3 g/dL (32-36); Mean Corpuscular Hgb 25.6 pg (27.0-32.0); Mean Corpuscular Volume 84.3 fL (81-99); Monocyte# 0.59 X10^3/uL; Monocyte% 8.4 % (0-10); NRBC Flagged by Analyzer 0 % (0-5); Neutrophil # 4.04 X10^3/uL (2.7-7.7); Neutrophil % 57.4 % (47-70); Platelet Count 259 K/mm3 (150-450); RBC Distribution Width CV 14.6 % (11.6-14.6); Red Blood Count 4.89 M/mm3 (4.2-5.4)
[2019-05-02 18:20] LABS: AST(SGOT) 17 U/L (15-37); Alanine Aminotransfer ALT/SGPT 22 U/L (13-56); Albumin, Serum 3.7 g/dL (3.2-5.0); Alkaline Phosphatase 160 U/L (45-117); Anion Gap 5 (5-15); BUN 15 mg/dL (7-18); BUN/Creat Ratio 13.5 RATIO (10-20); Bilirubin, Direct 0.09 mg/dL (0.00-0.30); Calcium,Total 9.6 mg/dL (8.5-10.1); Chloride 106 mmol/L (98-107); Creatinine, Serum 1.11 mg/dL (0.55-1.02); EST Glomerular Filtration Rate 54 mL/min (>60); Est Glom Filt Rate - Afr Amer 65 mL/min (>60); Estimated Creatinine Clearance 45.14 ml/min; Globulin 4.8 g/dL (2.2-4.2); Glucose 93 mg/dL (74-106); Potassium 3.9 mmol/L (3.5-5.1); Protein, Total 8.5 g/dL (6.4-8.2); Sodium Level 141 mmol/L (136-145); Thyroid Stim Hormone (TSH) 0.66 uIU/mL (0.358-3.74)
[2019-05-19] VITALS (14 sets, daily range): BP systolic 104–135; BP diastolic 53–76; PULSE 76–96; RESP 16–18; TEMP 36.2–36.8; O2SAT 92–99; BMI 47.5
[2019-05-19] MEDS: Scopolamine 1mg/72hr Patch 1 PATCH TRANSDERM. (05:59)
[2019-05-19] MEDS: Acetaminophen 500 MG Tablet 1000 MG PO ×3 (05:59→22:05)
[2019-05-19] MEDS: Lactated Ringers 1,000 ML 100 ML IV (06:03)
[2019-05-19 06:08] LABS: Magnesium 2.4 mg/dL (1.6-2.6)
[2019-05-19] MEDS: Magnesium Sulfate 4gm/100mL 4 GM/100 ML IV.SOLN. IV (06:15)
[2019-05-19 06:40] LABS: Bedside Glucose 81 mg/dL (70-110)
[2019-05-19] MEDS: Cefazolin 2 GM in 0.9% Normal Saline 100 ML IV (07:30)
[2019-05-19] MEDS: dexAMETHasone 10 MG/ML Vial IV (07:45)
[2019-05-19] MEDS: Cefazolin 1 GM/5 ML Vial 2 GM OPERA.SITE (08:30)
--- NOTE | 2019-05-19 09:35 | RAD_ITS ---
STUDY: X-RAY - RIGHT KNEE REASON FOR EXAM: Female, 59 years old. Post op right knee total revision TECHNIQUE: 2 view(s) of the knee. COMPARISON: Comparison is made with prior study dated January 28, 2019. FINDINGS: The patient is status post revision of the right total knee prosthesis. There is good alignment. Postoperative soft tissue changes. RAD/Knee 1 or 2 Views IMPRESSION: Status post revision of the prosthetic right knee. There is good alignment. Postoperative soft tissue changes. Electronically Signed: Zafar Abernathy, at 12:32 EST , Service support ,
--- NOTE | 2019-05-19 09:47 | OP.PCM_ITS ---
Report of Operation Date of Procedure: 05/19/19 Pre-Operative Diagnosis: Infected right total knee replacement Post-Operative Diagnosis: Infected right total knee replacement Surgery/Procedure Performed:: Removal of articulating antibiotic spacer and intramedullary antibiotic dowel rods with placement of new articulating antibiotic spacer and intramedullary antibiotic dowel rods Description of Surgical Findings:: Stable knee antibiotic spacer. Synovium was debrided. care assistant: Francisco Ricketts Type of Anesthesia:: General Anesthesiologist: Stanford De Luna Special Medications: Ancef, antibiotics and cement including amphotericin B Specimen's removed: 5 separate specimens were sent to microbiology Estimated Blood Loss (mL): 250 Fluids Replaced: 1500 mL crystalloid Description of Procedure: Brief history operative indications: 58-year-old female who had total knee replacement on the right in 2011. In 2017 she had skin sores with subsequent acute hematogenous joint infection. She had irrigation debridement with retention of implants. She had strep agalactiae at that time. Patient developed redness of the extremity. She was placed on antibiotics and then showed up in my office with swelling and pain in the knee. After explant and placement of antibiotic spacer patient received 6 weeks of IV antibiotics. On antibiotic holiday she subsequently had increase in swelling and redness again. Her labs also were elevated she was reaspirated. Aspiration was consistent with fungal infection. Cultures this morning grew out Neetu species. We elected to proceed with repeat irrigation debridement, explant and placement of antibiotic spacer with staged revision. Risks and benefits of the procedure were discussed the patient as noted in the consultation. Procedure: On the date of procedure patient's right lower extremity was marked in the preoperative area. The patient was then taken back to the operating room where the patient was placed on the table in the supine position. All bony prominences were identified a well-padded. Anesthesia assumed control of the C-spine and airway and remained controlled throughout the remainder of the procedure. A tourniquet was placed on the right upper thigh and the leg was prepped in a sterile fashion. The surgeon then scrubbed at this time. Upon reentering the room right lower extremity was draped in a standard orthopedic fashion. A timeout was then called and everyone agreed upon the side, the site, the procedure to be performed, patient's identity and antibiotics given. An Esmarch bandage was used to exsanguinate the extremity and the tourniquet was placed up to 250 mmHg with the knee in flexion. A midline skin incision was made using the previous incision and extending it proximally and distally to identify normal tissue planes. Medial and lateral flaps were developed appropriate releases. The standard medial parapatellar arthrotomy was made and the patella was subluxed laterally. At this time an aggressive synovectomy was performed re-creating the medial gutter first, then the suprapatellar pouch than the lateral gutter. Once this was completed the knee was flexed up an osteotome was used to remove the tibial polyethylene. The remainder of the synovium was debrided. The standard deep MCL release was done and the patella scar pad was resected and lateral releases were performed. Next our attention was directed to the femur. Wear flexible osteotomes were used to break up the implant bone interface. This was done both medially and laterally. After this is adequately loosened bone tamp was used to remove the femur component from the end of the bone. This was done with minimal bone loss. At this time attention was now directed towards the proximal tibia. The screws were removed using a large frag screwdriver from the press-fit implant. Osteotomes were then used to break up the proximal tibia implant interface and stacked osteotomes were used to remove the tibial implant. Once this was done it was evident with patient's previous stemmed implants she did have some significant metaphyseal bone loss which would need cones at the next vision. At this time the dowels were removed from both canals. At this time we focused on the bone ends sclerotic bone was removed and a cleanup cut was made on the tibia. We then focused down each canal first the femur we used osteotomes and a drill to remove the central cement mantle from t he canal. Once this was completed we removed the membrane from the femur. Part of this membrane was sent for culture. Next our attention was directed at the tibia. We again focused on the canal. Both canals were then reamed out with a 15 mm reamer to finish the debridement. We then focused our attention on the bone ends. Any residual cement was removed and the bone ends using a rondure and bur. Knee was then placed in extension and the remainder of the posterior knee was debrided. We then everted the patella where a TPS saw was used to separate the bone cement interface and remove the patella component. Bur was then used to remove the patella pegs. Once this was done tourniquet was let down and hemostasis was obtained using a aqua mantis. 6 L of normal saline with a irrigated throughout the wound under low-pressure lavage while cement dowels with antibiotics were mixed on the back table. We used the 15 mm reamer to do the appropriate size. These were allowed to cure on the back table. Once the wound was adequately debrided and irrigated out we then placed a size 5 femur on the end of the femur and size her polyethylene which was 13 mm polyethylene. Final components were opened and the size 4, 11mm polyethylene was turned over in the back was scored using a bur. Once was done the second batch of antibiotic laden cement was mixed. The cement was used to fill the bone defects and the tibia was cemented into place first. Dowels were placed in both femoral and tibial canals femoral component was then cemented into place and the knee was placed in extension. The cement was allowed to cure. Chlorhexidine lavage was then used to lavage of the joint. This was followed by normal saline. Drain was placed laterally. Wound was closed using #1 Vicryl suture running the arthrotomy after initially closing a previous rent in the arthrotomy with interrupted sutures. Final skin closure was done with 2-0 Vicryl final skin closure was done with dilip. A sterile compressive dressing was then placed. Patient was placed in a knee immobilizer the patient was then awakened from anesthesia, transferred to the [facility] and transferred to the PACU for recovery. Post op plan DVT ppx: Xarelto, thigh high compression stockings Follow up: in office in 2 weeks for wound check and to begin range of motion PT: to start POD #0 at hospital, toe-touch weightbearing for 2 weeks followed by 50% partial weightbearing Infection: Patient will be started on antibiotics postoperatively. Infectious disease will be consulted. Infectious disease will managed antibiotics and antifungals with a plan for 6 weeks of IV treatment followed by an antibiotic holiday. My physician customer relations assistant was a vital part of this case. He was important in appropriate retraction during the case, and protection of soft tissues during bony cuts. His intimate knowledge of the case and my steps aided in safe and expedient completion of the procedure as well as appropriate position of the leg during the case. He was also vital in assisting with closure under my direct supervision. Grafts/Implants Used: [place] size 5 CR triathlon knee and size 5 13 mm CR poly - Admit VTE Documentation VTE Present on Admission: No VTE Mechan Device Prophylaxis: SCD's, Thigh High BLANCA Maki VTE Pharm Prophylaxis ordered?: Yes
[2019-05-19] MEDS: Lactated Ringers 1,000 ML 999 ML IV (10:30)
[2019-05-19] MEDS: Lactated Ringers 1,000 ML 125 ML IV ×2 (12:30→13:56)
[2019-05-19] MEDS: Gabapentin 600 MG Tablet PO (13:56)
--- NOTE | 2019-05-19 13:56 | CON.PCM_ITS ---
Problem List (1) Infection of right knee Status: Acute Reason for Consult: R knee PJI Consulted by: Dr. Barton History of Present Illness: The patient is a 59 year old F with h/o recurrent R knee PJI. Had GBS infection 01/2017, then admitted 01/2019 for spacer placement, surg cxs with MSSA and one also with enterobacter. Discharged on iv abx, was feeling ok, but had worsening in March. 04/03 aspiration cx with Neetu parapsilosis. Started on fluconazole, susc came back resistant, so changed to voriconazole. Has been on this for several weeks, knee improved, no fever, no n/v/d, no vision changes. Taken to OR today 05/[address] Barton for removal of hardware and new spacer placement. Knee feels much better today. Full ROS performed and neg except as noted above. - Medical History Past Medical History (Chronic Problems): Chronic Problems History of DVT (deep vein thrombosis) (Chronic) Septic arthritis of knee, right (Chronic) Hx of total knee replacement (Chronic) right Restless leg (Chronic) RENNY (obstructive sleep apnea) (Chronic) Hypothyroidism (Chronic) Diverticulosis of colon without diverticulitis (Chronic) Depression (Chronic) Postphlebitic syndrome with inflammation (Chronic) Lumbar disc disease (Chronic) History of Graves' disease (Chronic) Diabetes mellitus (Chronic) Renal insufficiency (Chronic) Presence of IVC filter (Chronic) Obesity (Chronic) Edema leg (Chronic) Leg swelling (Chronic) DVT of lower extremity (deep venous thrombosis) (Chronic) Allergies/Adverse Reactions: Allergies hydrocodone bitartrate [From Lortab] Allergy (Intermediate, Verified 05/19/19 05:47) Other lips swell, ataxia etodolac Allergy (Verified 05/19/19 05:47) Unknown misoprostol Allergy (Verified 05/19/19 05:47) Unknown celecoxib Adverse Reaction (Intermediate, Verified 05/19/19 05:47) Other heart palpitations diclofenac [Diclofenac] Adverse Reaction (Mild, Verified 05/19/19 05:47) Abd cramps/diarrhea ketorolac tromethamine [From Toradol] Adverse Reaction (Mild, Verified 05/19/19 05:47) Other balance issues metoclopramide HCl [From Reglan] Adverse Reaction (Mild, Verified 05/19/19 05:47) Other worsens restless leg atorvastatin [From Lipitor] Adverse Reaction (Verified 05/19/19 05:47) Other FACE SPASMS clindamycin Adverse Reaction (Verified 05/19/19 05:47) Mucosal lesions Home Medications: Ambulatory Orders Medication Instructions Recorded Levothyroxine [Synthroid] 175 mcg PO DAILY 09/01/13 Omeprazole [Prilosec] 20 mg PO DAILY 12/13/16 Cholecalciferol (Vitamin D3) 5,000 unit PO DAILY@1200 01/25/17 [Vitamin D3] [place]-3 Fatty Acids/Fish Oil [Fish 2,000 mg PO DAILY 03/21/18 Oil 1,000 mg Capsule] Gabapentin 1,200 mg PO BID 08/01/18 Gabapentin [Neurontin] 600 mg PO .LUNCHTIME 08/01/18 Lisinopril [Zestril] 10 mg PO DAILY 08/01/18 Pramipexole Di-HCl [Pramipexole 1.5 tab PO DAILY 08/01/18 Dihydrochloride] Pramipexole Di-HCl [Pramipexole 3 mg PO QHS 08/01/18 Dihydrochloride] Venlafaxine HCl [Effexor Xr] 1 tab PO QHS 08/01/18 Venlafaxine HCl [Venlafaxine HCl 1 tab PO QHS 08/01/18 ER] Aspirin [Aspir-Low] 81 mg PO DAILY 05/02/19 Aspirin/Acetaminophen/Caffeine 2 ea PO 1500 05/02/19 [Excedrin Extra Strength Caplet] Famotidine [Pepcid] 40 mg PO QHS 05/02/19 traMADol [Ultram (G)] 50 - 100 mg PO Q6H PRN PRN 05/02/19 - Social History SMOKING STATUS:: Former smoker Vital Signs Temp Pulse Resp BP Pulse Ox 98 F 91 16 105/53 L 97 05/19/19 12:50 05/19/19 12:50 05/19/19 12:50 05/19/19 12:50 05/19/19 12:50 Oxygen Flow Rate (L/min) 6 Oxygen Delivery Method Simple Mask Weight: 121.7 kg Body Mass Index (BMI) 47.5 Finger Stick Blood Glucose 112 Laboratory Tests Past 24 Hrs 05/19/19 05:50 Magnesium 2.4 - Other Studies Radiology: [] reviewed Other Studies: [] Route of nutrition/ use of supplements: [] Nutritional Intake: [] IV Site: [] Clarke Catheter: [] - Physical Exam General: Alert, Oriented x3, Cooperative, No apparent distress HEENT: Atraumatic, PERRLA, EOMI Neck: Supple, No Nodes Lungs: Clear to auscultation, Normal air movement Cardiovascular: Regular rate, Regular Rhythm Abdomen: Soft, Non Tender, Non-Distended Extremities: No edema Skin: Incision - R knee wrapped IV Site: Peripheral, without redness Musculoskeletal: No Tenderness to Palpation of Joints or Extremities Neurological: Cranial nerves II-XII grossly intact - Assessment/Plan Antibiotics: [] Assessment/Plan: [] R knee Neetu parapsilosis PJI - now s/p 2nd spacer placement 05/[address] Barton. Prior surgery 01/2019 with mssa and enterobacter. Surg cx pending. Getting vanc/ancef helen-op. Will order po voriconazole to continue. If no other organisms are seen from surgery, plan will be for her to leave on po vori 200mg bid. Typical courses for fungal PJI are 6-12 weeks. ID followup with me in 2 weeks. Will order vori level for the AM. Will follow, thank you, d/w assistant case manager.
--- NOTE | 2019-05-19 14:00 | CASEMGMT ---
RN DIANA Face to Face with patient for initial transition planning/care coordination assessment. RN CM introduced self and role at [facility]. Patient lying in bed, alert and oriented, at bedside. Patient willing to participate in assessment and is able to answer all questions appropriately. Care providers, pharmacy, and demographics verified. Patient wishes to discharge home, denies need for home health at this time. Patient states she has no further needs or concerns at this time. CM to follow for discharge planning needs that may arise. PCP: Lin Specialists: Oralia Reis Pharmacy: [facility] Insurance: [place] Prescription Benefit: yes Living Will/HPOA: none LNOK: Living Arrangements: Patient lives with in 1 story home with a ramp Transportation: DME/HHC: Patient has shower chair, raised toilet, cane, grab bars, walker, and will rent wheelchair. Disposition Plan: Patient to discharge home with family support and follow-up plans in place. Queenie HAND, RN, CM
[2019-05-19] MEDS: Voriconazole 200 MG Tablet PO ×2 (14:04→22:06)
[2019-05-19] MEDS: Ensure Surgery 237 ML LIQUID PO (14:09)
--- NOTE | 2019-05-19 17:12 | PCM.PROGNOTE ---
Subjective: Patient seen and examined. Underwent right knee surgery by Dr. Barton today. Denies pain currently. Denies chest pain, shortness of breath. No other complaints. - Physical Exam Vitals/I&O's: Vital Signs Temp Pulse Resp BP Pulse Ox 97.3 F L 96 18 104/59 L 96 05/19/19 14:55 05/19/19 14:55 05/19/19 14:55 05/19/19 14:55 05/19/19 14:55 Oxygen Flow Rate (L/min) 6 Oxygen Delivery Method Room Air Weight: 268 lb 4.841 oz Body Mass Index (BMI) 47.5 Finger Stick Blood Glucose 112 Intake and Output for Last 24 Hours 05/17/19 05/18/19 05/19/19 23:59 23:59 23:59 Intake Total 2439.16 / 2439.16 Output Total 60 / 60 Balance 2379.16 / 2379.16 General: Alert, Oriented x3, Cooperative HEENT: Atraumatic, PERRLA, EOMI, Normocephalic Neck: Supple, No JVD, Negative Carotid Bruits Lungs: Clear to auscultation, Diminished Cardiovascular: Regular rate, Regular Rhythm, Normal S1, Normal S2, No murmurs Abdomen: Bowel Sounds Present, Soft, Non Tender, Non-Distended, Obese Extremities: No clubbing, No cyanosis Skin: No rashes, No breakdown, - - Right knee postop dressing intact Musculoskeletal: No Tenderness to Palpation of Joints or Extremities Neurological: Cranial nerves II-XII grossly intact, Neuro grossly intact Psych/Mental Status: Normal Affect, Appropriate Microbiology Past 72 Hours 05/19/19 Unknown Tissue - Knee Gram Stain - Final 05/19/19 Unknown Tissue - Knee Gram Stain - Final 05/19/19 Unknown Tissue - Knee Gram Stain - Final 05/19/19 Unknown Tissue - Knee Gram Stain - Final 05/19/19 Unknown Tissue - Knee Gram Stain - Final Laboratory Results 05/19/19 05:50: Magnesium 2.4 05/19/19 06:13: POC Glucose 81 Current Medications Acetaminophen (Tylenol) 1,000 mg PO Q8 [facility] Last Admin: 05/19/19 13:57 Dose: 1,000 mg Documented by: Cholecalciferol (Vitamin D) 5,000 unit PO DAILY@1200 [facility] Enteral Nutritional Formula (Ensure Surgery) 237 ml PO TIDCM [facility] Last Admin: 05/19/19 14:09 Dose: 237 ml Documented by: Famotidine (Pepcid) 40 mg PO QHS [facility] Gabapentin (Neurontin) 1,200 mg PO BID [facility] Gabapentin (Neurontin) 600 mg PO 1200 [facility] Last Admin: 05/19/19 13:56 Dose: 600 mg Documented by: Lactated Ringer's () 1,000 mls @ 125 mls/hr IV .Q8H [facility] Last Infusion: 05/19/19 13:59 Dose: 0 mls/hr Documented by: Cefazolin Sodium () 1 gm in 50 mls @ 150 mls/hr IV Q8H [facility] Stop: 05/19/19 23:49 Vancomycin HCl 1,500 mg/ (Sodium Chloride) 530 mls @ 250 mls/hr IV Q12H [facility] Stop: 05/20/19 04:08 Insulin Human Lispro (Humalog Kwikpen ([facility])) 1 - 6 unit SC Q4H PRN PRN; Protocol PRN Reason: BG>/= 180, SEE PROTOCOL Ketorolac Tromethamine (Toradol (Bk)) 15 mg IV Q6H PRN PRN PRN Reason: Pain Score 1-5/10 Levothyroxine Sodium (Synthroid) 175 mcg PO DAILY@0600 [facility] Lisinopril (Zestril) 10 mg PO DAILY [facility] Meloxicam (Mobic) 7.5 mg PO BID [facility] Morphine Sulfate () 2 - 4 mg IV Q2H PRN PRN PRN Reason: Pain Score 6-10/10 Ondansetron HCl (Zofran) 4 mg IV Q8H PRN PRN PRN Reason: NAUSEA Oxycodone HCl (Oxyir) 5 - 10 mg PO Q4H PRN PRN PRN Reason: Pain Score 4-10/10 Pantoprazole Sodium (Protonix) 20 mg PO DAILY [facility] Pramipexole Dihydrochloride (Mirapex) 1.5 mg PO DAILY [facility] Pramipexole Dihydrochloride (Mirapex) 3 mg PO QHS [facility] Promethazine HCl (Phenergan) 12.5 mg IM Q6H PRN PRN; Protocol PRN Reason: NAUSEA/VOMITING Rivaroxaban (Xarelto) 10 mg PO DAILY@0600 [facility] Senna/Docusate Sodium (Senokot-S, Aileen-Colace) 2 tablet PO BID [facility] Sodium Chloride () 10 - 40 ml IV UD PRN PRN Reason: SALINE FLUSH Venlafaxine HCl (Effexor Xr) 75 mg PO QHS [facility] Venlafaxine HCl (Effexor Xr) 150 mg PO QHS [facility] Voriconazole (Vfend) 200 mg PO BID [facility] Last Admin: 05/19/19 14:04 Dose: 200 mg Documented by: Medical Necessity - Tobacco Use Smoking Status: Former smoker Tobacco Use: Non-smoker Assessment/Plan All Active Problems Infection of right knee (Acute) Septic joint (Acute) 1. Right prosthetic knee recurrent infection status post removal of antibiotic spacer right knee with replacement of antibiotic spacer by Dr. Barton POD #1-patient has history of multiple surgeries on right knee. Patient initially underwent antibiotic spacer January 2019, prior cultures revealed Neetu parapsilosis, Enterobacter and staph aureus. On IV cefazolin and IV vancomycin. ID consulted. Management per ortho. 2. Hypertension-stable, continue lisinopril regimen. 3. Rheumatoid arthritis-on Plaquenil, held given #1. 4. Hypothyroidism-continue Synthroid regimen. 5. Depression/anxiety-continue Effexor. 6. GERD/history of ulcer-continue IV famotidine. 7. History of DVT-on Xarelto. Patient reports multiple DVTs in the past which have all been provoked following surgery. 8. RENNY-continue CPAP regimen. 9. Chronic COPD-patient reports very mild with no history of exacerbation. As needed albuterol aerosol. 10. Morbid obesity-encouraged diet and lifestyle medications. DVT prophylaxis-Xarelto This patient was seen by MERISSA Griggs under the supervision of Dr. Oneil.
[2019-05-19] MEDS: Cefazolin 1 GM/50 ML BAG IV ×2 (17:16→22:08)
[2019-05-19] MEDS: Pramipexole Di-HCl 1 MG Tablet 3 MG PO (22:05)
[2019-05-19] MEDS: Venlafaxine XR 75 MG Capsule PO (22:05)
[2019-05-19] MEDS: Senna/Docusate Sodium 1 Tablet 2 TABLET PO (22:05)
[2019-05-19] MEDS: Famotidine 20 MG Tablet 40 MG PO (22:05)
[2019-05-19] MEDS: Venlafaxine XR 150 MG Capsule PO (22:05)
[2019-05-19] MEDS: Gabapentin 600 MG Tablet 1200 MG PO (22:06)
[2019-05-19] MEDS: Sodium Chloride 0.65% 1 SPRAY SPRAY.BTL 2 SPRAY NASAL (23:11)
[2019-05-20] VITALS (7 sets, daily range): BP systolic 90–114; BP diastolic 45–61; PULSE 70–91; RESP 16–18; TEMP 36.6–37.3; O2SAT 71–98
[2019-05-20] MEDS: oxyCODONE 5 MG Tablet PO ×3 (02:01→23:10)
[2019-05-20] MEDS: 0.9% Saline Lock 10 ML Syringe IV ×2 (02:05→17:24)
[2019-05-20] MEDS: Acetaminophen 500 MG Tablet 1000 MG PO ×3 (05:50→21:51)
[2019-05-20] MEDS: Rivaroxaban 10 MG Tablet PO (05:51)
[2019-05-20] MEDS: Levothyroxine 175 MCG Tablet PO (05:51)
--- NOTE | 2019-05-20 05:55 | RAD_ITS ---
STUDY: X-RAY - LEFT FOOT CLINICAL: Female, 59 years old. C/O PAIN DORSAL SURFACE BETWEEN 1ST and 2ND MTP JOINTS OF LT FOOT WITH ST SWELLING -- NKI -- HAS HAD TO BEAR ALL HER WEIGHT FOR PAST 3 MONTHS ON THAT FOOT DUE TO RT KNEE TECHNIQUE: 3 view(s) of the foot. COMPARISON: None. FINDINGS: There is a plantar calcaneal spur. Arthropathy of the subtalar, talonavicular, calcaneocuboid, tarsal and particularly tarsometatarsal articulations. Subchondral cyst formation involving the metatarsal bases. Otherwise normal metatarsi. Normal metatarsophalangeal joint of the great toe. Normal tibial and fibular sesamoid bones. Normal interphalangeal joint of the great toe. Normal phalanges of the great toe. Normal second through fifth metatarsophalangeal joints. Normal interphalangeal joints and phalanges of the lesser toes. Soft tissue swelling along the forefoot.. RAD/Foot min 3 Views IMPRESSION: Degenerative changes and soft tissue swelling. No sign of insufficiency fracture. Electronically Signed: Marga Santos MD at 7:28 EST , Service support ,
[2019-05-20 07:26] LABS: Hematocrit 33.7 % (37-47); Hemoglobin 10.5 g/dL (12.0-15.0); Mean Corp Hgb Conc 31.2 g/dL (32-36); Mean Corpuscular Hgb 25.9 pg (27.0-32.0); Mean Corpuscular Volume 83.2 fL (81-99); Mean Platelet Vol. 9.6 fl (6.2-12.0); Platelet Count 219 K/mm3 (150-450); RBC Distribution Width CV 14.4 % (11.6-14.6); RBC Distribution Width SD 43.1 fl (35.1-43.9); Red Blood Count 4.05 M/mm3 (4.2-5.4); White Blood Count 13.5 K/mm3 (4.4-11.0)
[2019-05-20 08:19] LABS: AST(SGOT) 30 U/L (15-37); Alanine Aminotransfer ALT/SGPT 40 U/L (13-56); Albumin, Serum 2.9 g/dL (3.2-5.0); Alkaline Phosphatase 143 U/L (45-117); Anion Gap 6 (5-15); BUN 14 mg/dL (7-18); BUN/Creat Ratio 16.5 RATIO (10-20); Bilirubin, Direct < 0.05 mg/dL (0.00-0.30); Calcium,Total 8.2 mg/dL (8.5-10.1); Chloride 106 mmol/L (98-107); Creatinine, Serum 0.85 mg/dL (0.55-1.02); EST Glomerular Filtration Rate 73 mL/min (>60); Est Glom Filt Rate - Afr Amer 88 mL/min (>60); Estimated Creatinine Clearance 58.95 ml/min; Globulin 3.7 g/dL (2.2-4.2); Glucose 179 mg/dL (74-106); Potassium 4.1 mmol/L (3.5-5.1); Protein, Total 6.6 g/dL (6.4-8.2); Sodium Level 139 mmol/L (136-145)
--- NOTE | 2019-05-20 09:06 | PCM.PN.ORT ---
Objective: Postop x-rays show appropriately placed articulating antibiotic spacer. - Physical Exam Vitals/I&O's: Vital Signs Temp Pulse Resp BP Pulse Ox 97.8 F 91 18 106/49 L 94 05/20/19 01:59 05/20/19 01:59 05/20/19 01:59 05/20/19 01:59 05/20/19 01:59 Oxygen Flow Rate (L/min) 6 Oxygen Delivery Method Room Air Weight: 268 lb 4.841 oz Body Mass Index (BMI) 47.5 Finger Stick Blood Glucose 112 Intake and Output for Last 24 Hours 05/18/19 05/19/19 05/20/19 23:59 23:59 23:59 Intake Total 3926.66 / 3926.66 583.25 / 583.25 Output Total 560 / 1760 2500 / 2500 Balance 3366.66 / 2166.66 -1916.75 / -1916.75 General: Alert, Oriented x3, Cooperative Extremities: - - Right lower extremity: Dressing is clean dry and intact. Drain is intact. Knee remains in extension knee immobilizer. Swelling is appropriate. Minimal erythema. Neurovascular intact distally. Skin: - - Excoriations on lower leg Microbiology Past 72 Hours 05/19/19 Unknown Tissue - Knee Gram Stain - Final 05/19/19 Unknown Tissue - Knee Gram Stain - Final 05/19/19 Unknown Tissue - Knee Gram Stain - Final 05/19/19 Unknown Tissue - Knee Gram Stain - Final 05/19/19 Unknown Tissue - Knee Gram Stain - Final Laboratory Results 05/20/19 06:13: WBC 13.5 H, RBC 4.05 L, Hgb 10.5 L, Hct 33.7 L, MCV 83.2, MCH 25.9 L, MCHC 31.2 L, RDW Std Deviation 43.1, RDW Coeff of Sergio 14.4, Plt Count 219, MPV 9.6 05/20/19 06:13: Sodium 139, Potassium 4.1, Chloride 106, Carbon Dioxide 27.0, Anion Gap 6, BUN 14, Creatinine 0.85, Estim Creat Clear Calc 58.95, Est GFR (MDRD) Af Amer 88, Est GFR (MDRD) Non-Af 73, BUN/Creatinine Ratio 16.5, Glucose 179 H, Calcium 8.2 L, Total Bilirubin 0.30, Direct Bilirubin < 0.05, AST 30, ALT 40, Alkaline Phosphatase 143 H, Total Protein 6.6, Albumin 2.9 L, Globulin 3.7 05/20/19 06:13: Miscellaneous Test Pending Current Medications Acetaminophen (Tylenol) 1,000 mg PO Q8 [facility] Last Admin: 05/20/19 05:50 Dose: 1,000 mg Documented by: Cholecalciferol (Vitamin D) 5,000 unit PO DAILY@1200 [facility] Enteral Nutritional Formula (Ensure Surgery) 237 ml PO TIDCM [facility] Last Admin: 05/19/19 17:16 Dose: Not Given Documented by: Famotidine (Pepcid) 40 mg PO QHS [facility] Last Admin: 05/19/19 22:05 Dose: 40 mg Documented by: Gabapentin (Neurontin) 1,200 mg PO BID [facility] Last Admin: 05/19/19 22:06 Dose: 1,200 mg Documented by: Gabapentin (Neurontin) 600 mg PO 1200 [facility] Last Admin: 05/19/19 13:56 Dose: 600 mg Documented by: Lactated Ringer's () 1,000 mls @ 125 mls/hr IV .Q8H [facility] Last Admin: 05/20/19 05:53 Dose: Not Given Documented by: Insulin Human Lispro (Humalog Kwikpen (Bk)) 1 - 6 unit SC Q4H PRN PRN; Protocol PRN Reason: BG>/= 180, SEE PROTOCOL Ketorolac Tromethamine (Toradol (Bkc)) 15 mg IV Q6H PRN PRN PRN Reason: Pain Score 1-5/10 Levothyroxine Sodium (Synthroid) 175 mcg PO DAILY@0600 [facility] Last Admin: 05/20/19 05:51 Dose: 175 mcg Documented by: Lisinopril (Zestril) 10 mg PO DAILY [facility] Meloxicam (Mobic) 7.5 mg PO BID [facility] Morphine Sulfate () 2 - 4 mg IV Q2H PRN PRN PRN Reason: Pain Score 6-10/10 Ondansetron HCl (Zofran) 4 mg IV Q8H PRN PRN PRN Reason: NAUSEA Oxycodone HCl (Oxyir) 5 - 10 mg PO Q4H PRN PRN PRN Reason: Pain Score 4-10/10 Last Admin: 05/20/19 02:01 Dose: 10 mg Documented by: Pantoprazole Sodium (Protonix) 20 mg PO DAILY [facility] Pramipexole Dihydrochloride (Mirapex) 1.5 mg PO DAILY [facility] Pramipexole Dihydrochloride (Mirapex) 3 mg PO QHS [facility] Last Admin: 05/19/19 22:05 Dose: 3 mg Documented by: Promethazine HCl (Phenergan) 12.5 mg IM Q6H PRN PRN; Protocol PRN Reason: NAUSEA/VOMITING Rivaroxaban (Xarelto) 10 mg PO DAILY@0600 [facility] Last Admin: 05/20/19 05:51 Dose: 10 mg Documented by: Senna/Docusate Sodium (Senokot-S, Aileen-Colace) 2 tablet PO BID [facility] Last Admin: 05/19/19 22:05 Dose: 2 tablet Documented by: Sodium Chloride () 10 - 40 ml IV UD PRN PRN Reason: SALINE FLUSH Last Admin: 05/20/19 02:05 Dose: 20 ml Documented by: Sodium Chloride ([place] Nasal [place]) 2 spray NASAL TID PRN PRN PRN Reason: NASAL DRYNESS Last Admin: 05/19/19 23:11 Dose: 2 spray Documented by: Venlafaxine HCl (Effexor Xr) 75 mg PO QHS [facility] Last Admin: 05/19/19 22:05 Dose: 75 mg Documented by: Venlafaxine HCl (Effexor Xr) 150 mg PO QHS [facility] Last Admin: 05/19/19 22:05 Dose: 150 mg Documented by: Voriconazole (Vfend) 200 mg PO BID [facility] Last Admin: 05/19/19 22:06 Dose: 200 mg Documented by: Medical Necessity - Tobacco Use Smoking Status: Former smoker Tobacco Use: Non-smoker Assessment/Plan All Active Problems Infection of right knee (Acute) Septic joint (Acute) Postop day 1 removal of antibiotic spacer, placement of revision collating antibiotic spacer with antifungals for fungal infection. 1. Pain control: Pain currently under control continue with current regimen 2. 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 Potentially patient could be treated with oral antifungals. Plan is for 6 to 12 weeks of antifungal treatment prior to considering antibiotic holiday/antifungal holiday. We will continue to follow cultures taken intraoperatively. Wound culture does show Gram stain positive for gram-positive cocci. Antibiotic regimen/antifungal regimens managed per infectious disease 3. DVT prophylaxis: Xarelto for 2 weeks followed by aspirin 4. Therapy: Knee should remain in extension, knee immobilizer in place. Okay to loosen and remove the knee immobilizer if knee remains in extension and recliner or in bed for comfort of the patient. Patient is toe-touch weightbearing for 2 weeks followed by partial weightbearing thereafter. We will begin range of motion therapy after 2 weeks. 5. Drain: We will continue to monitor drain output. Maintain today likely pulled tomorrow. 6. Encourage incentive spirometry 7. Disposition: This will be dependent on patient's mobility and antibiotics/antifungal regimens. Anticipated discharge will be early in the week. [facility] Office:
[2019-05-20] MEDS: Pantoprazole Sodium 20 MG Tablet PO (09:31)
[2019-05-20] MEDS: Gabapentin 600 MG Tablet 1200 MG PO ×2 (09:32→21:53)
[2019-05-20] MEDS: Voriconazole 200 MG Tablet PO ×2 (09:33→21:52)
[2019-05-20] MEDS: Pramipexole Di-HCl 1 MG Tablet 1.5 MG PO (09:33)
[2019-05-20] MEDS: Senna/Docusate Sodium 1 Tablet 2 TABLET PO ×2 (09:33→21:52)
[2019-05-20] MEDS: Ensure Surgery 237 ML LIQUID PO ×3 (09:36→17:23)
--- NOTE | 2019-05-20 10:14 | PCM.PROGNOTE ---
<Reba Correa - Last Filed: 05/20/19 10:19> Subjective: Patient seen and examined. Denies pain. Reports left foot pain and swelling which is been ongoing prior to admission. Left foot x-ray showed soft tissue swelling and degenerative changes, no sign of fracture. - Physical Exam Vitals/I&O's: Vital Signs Temp Pulse Resp BP Pulse Ox 98.5 F 70 16 90/45 L 71 05/20/19 09:09 05/20/19 09:16 05/20/19 09:09 05/20/19 09:09 05/20/19 09:09 Oxygen Flow Rate (L/min) 6 Oxygen Delivery Method Room Air Weight: 268 lb 4.841 oz Body Mass Index (BMI) 47.5 Finger Stick Blood Glucose 112 Intake and Output for Last 24 Hours 05/18/19 05/19/19 05/20/19 23:59 23:59 23:59 Intake Total 3926.66 / 3926.66 583.25 / 583.25 Output Total 560 / 1760 2500 / 2500 Balance 3366.66 / 2166.66 -1916.75 / -1916.75 General: Alert, Oriented x3, Cooperative HEENT: Atraumatic, PERRLA, EOMI, Normocephalic Neck: Supple, No JVD, Negative Carotid Bruits Lungs: Clear to auscultation, Normal air movement Cardiovascular: Regular rate, Regular Rhythm, Normal S1, Normal S2, No murmurs Abdomen: Bowel Sounds Present, Soft, Non Tender Extremities: No clubbing, No cyanosis, No edema, Capillary Refill Less than 3 Seconds Skin: No rashes, No breakdown, - - Right knee postop dressing clean dry and intact, drain in place Musculoskeletal: No Tenderness to Palpation of Joints or Extremities Neurological: Cranial nerves II-XII grossly intact Psych/Mental Status: Normal Affect, Appropriate Microbiology Past 72 Hours 05/19/19 Unknown Tissue - Knee Gram Stain - Final 05/19/19 Unknown Tissue - Knee Gram Stain - Final 05/19/19 Unknown Tissue - Knee Gram Stain - Final 05/19/19 Unknown Tissue - Knee Gram Stain - Final 05/19/19 Unknown Tissue - Knee Gram Stain - Final Laboratory Results 05/20/19 06:13: WBC 13.5 H, RBC 4.05 L, Hgb 10.5 L, Hct 33.7 L, MCV 83.2, MCH 25.9 L, MCHC 31.2 L, RDW Std Deviation 43.1, RDW Coeff of Sergio 14.4, Plt Count 219, MPV 9.6 05/20/19 06:13: Sodium 139, Potassium 4.1, Chloride 106, Carbon Dioxide 27.0, Anion Gap 6, BUN 14, Creatinine 0.85, Estim Creat Clear Calc 58.95, Est GFR (MDRD) Af Amer 88, Est GFR (MDRD) Non-Af 73, BUN/Creatinine Ratio 16.5, Glucose 179 H, Calcium 8.2 L, Total Bilirubin 0.30, Direct Bilirubin < 0.05, AST 30, ALT 40, Alkaline Phosphatase 143 H, Total Protein 6.6, Albumin 2.9 L, Globulin 3.7 05/20/19 06:13: Miscellaneous Test Pending Current Medications Acetaminophen (Tylenol) 1,000 mg PO Q8 [facility] Last Admin: 05/20/19 05:50 Dose: 1,000 mg Documented by: Cholecalciferol (Vitamin D) 5,000 unit PO DAILY@1200 [facility] Enteral Nutritional Formula (Ensure Surgery) 237 ml PO TIDCM [facility] Last Admin: 05/20/19 09:36 Dose: 237 ml Documented by: Famotidine (Pepcid) 40 mg PO QHS [facility] Last Admin: 05/19/19 22:05 Dose: 40 mg Documented by: Gabapentin (Neurontin) 1,200 mg PO BID [facility] Last Admin: 05/20/19 09:32 Dose: 1,200 mg Documented by: Gabapentin (Neurontin) 600 mg PO 1200 [facility] Last Admin: 05/19/19 13:56 Dose: 600 mg Documented by: Lactated Ringer's () 1,000 mls @ 125 mls/hr IV .Q8H [facility] Last Admin: 05/20/19 05:53 Dose: Not Given Documented by: Insulin Human Lispro (Humalog Kwikpen ([facility])) 1 - 6 unit SC Q4H PRN PRN; Protocol PRN Reason: BG>/= 180, SEE PROTOCOL Ketorolac Tromethamine (Toradol ([facility])) 15 mg IV Q6H PRN PRN PRN Reason: Pain Score 1-5/10 Levothyroxine Sodium (Synthroid) 175 mcg PO DAILY@0600 [facility] Last Admin: 05/20/19 05:51 Dose: 175 mcg Documented by: Lisinopril (Zestril) 10 mg PO DAILY [facility] Last Admin: 05/20/19 09:28 Dose: Not Given Documented by: Meloxicam (Mobic) 7.5 mg PO BID [facility] Morphine Sulfate () 2 - 4 mg IV Q2H PRN PRN PRN Reason: Pain Score 6-10/10 Ondansetron HCl (Zofran) 4 mg IV Q8H PRN PRN PRN Reason: NAUSEA Oxycodone HCl (Oxyir) 5 - 10 mg PO Q4H PRN PRN PRN Reason: Pain Score 4-10/10 Last Admin: 05/20/19 02:01 Dose: 10 mg Documented by: Pantoprazole Sodium (Protonix) 20 mg PO DAILY [facility] Last Admin: 05/20/19 09:31 Dose: 20 mg Documented by: Pramipexole Dihydrochloride (Mirapex) 1.5 mg PO DAILY [facility] Last Admin: 05/20/19 09:33 Dose: 1.5 mg Documented by: Pramipexole Dihydrochloride (Mirapex) 3 mg PO QHS [facility] Last Admin: 05/19/19 22:05 Dose: 3 mg Documented by: Promethazine HCl (Phenergan) 12.5 mg IM Q6H PRN PRN; Protocol PRN Reason: NAUSEA/VOMITING Rivaroxaban (Xarelto) 10 mg PO DAILY@0600 [facility] Last Admin: 05/20/19 05:51 Dose: 10 mg Documented by: Senna/Docusate Sodium (Senokot-S, Aileen-Colace) 2 tablet PO BID [facility] Last Admin: 05/20/19 09:33 Dose: 2 tablet Documented by: Sodium Chloride () 10 - 40 ml IV UD PRN PRN Reason: SALINE FLUSH Last Admin: 05/20/19 02:05 Dose: 20 ml Documented by: Sodium Chloride ([place] Nasal [place]) 2 spray NASAL TID PRN PRN PRN Reason: NASAL DRYNESS Last Admin: 05/19/19 23:11 Dose: 2 spray Documented by: Venlafaxine HCl (Effexor Xr) 75 mg PO QHS [facility] Last Admin: 05/19/19 22:05 Dose: 75 mg Documented by: Venlafaxine HCl (Effexor Xr) 150 mg PO QHS [facility] Last Admin: 05/19/19 22:05 Dose: 150 mg Documented by: Voriconazole (Vfend) 200 mg PO BID [facility] Last Admin: 05/20/19 09:33 Dose: 200 mg Documented by: Medical Necessity - Tobacco Use Smoking Status: Former smoker Tobacco Use: Non-smoker Assessment/Plan All Active Problems Infection of right knee (Acute) Septic joint (Acute) 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 Barton POD #1-patient has history of multiple surgeries on right knee. Patient initially underwent antibiotic spacer January 2019, prior cultures revealed Neetu parapsilosis, Enterobacter and staph aureus. ID consulted. Management per ortho. Plan to continue oral voriconazole pending repeat cultures do not grow other organisms. 2. Hypertension-stable, continue lisinopril regimen. 3. Rheumatoid arthritis-on Plaquenil, held given #1. 4. Hypothyroidism-continue Synthroid regimen. 5. Depression/anxiety-continue Effexor. 6. GERD/history of ulcer-continue IV famotidine. 7. History of DVT-on Xarelto. Patient reports multiple DVTs in the past which have all been provoked following surgery. 8. RENNY-continue CPAP regimen. 9. Chronic COPD-patient reports very mild with no history of exacerbation. As needed albuterol aerosol. 10. Morbid obesity-encouraged diet and lifestyle medications. DVT prophylaxis-Xarelto This patient was seen by MERISSA Griggs under the supervision of Dr. Juarez. <Linda Juarez - Last Filed: 05/20/19 14:21> - Physical Exam Vitals/I&O's: Vital Signs Temp Pulse Resp BP Pulse Ox 98.3 F 86 16 99/54 L 97 05/20/19 11:19 05/20/19 11:19 05/20/19 11:19 05/20/19 13:07 05/20/19 11:19 Oxygen Flow Rate (L/min) 6 Oxygen Delivery Method Room Air Weight: 268 lb 4.841 oz Body Mass Index (BMI) 47.5 Finger Stick Blood Glucose 112 Intake and Output for Last 24 Hours 05/18/19 05/19/19 05/20/19 23:59 23:59 23:59 Intake Total 3926.66 / 3926.66 1083.25 / 1083.25 Output Total 560 / 1760 2500 / 2500 Balance 3366.66 / 2166.66 -1416.75 / -1416.75 Microbiology Past 72 Hours 05/19/19 Unknown Tissue - Knee Gram Stain - Final 05/19/19 Unknown Tissue - Knee Wound Culture - Preliminary No growth-Final to follow 05/19/19 Unknown Tissue - Knee Gram Stain - Final 05/19/19 Unknown Tissue - Knee Wound Culture - Preliminary No growth-Final to follow 05/19/19 Unknown Tissue - Knee Gram Stain - Final 05/19/19 Unknown Tissue - Knee Wound Culture - Preliminary No growth-Final to follow 05/19/19 Unknown Tissue - Knee Gram Stain - Final 05/19/19 Unknown Tissue - Knee Wound Culture - Preliminary No growth-Final to follow 05/19/19 Unknown Tissue - Knee Gram Stain - Final 05/19/19 Unknown Tissue - Knee Wound Culture - Preliminary No growth-Final to follow Laboratory Results 05/20/19 06:13: WBC 13.5 H, RBC 4.05 L, Hgb 10.5 L, Hct 33.7 L, MCV 83.2, MCH 25.9 L, MCHC 31.2 L, RDW Std Deviation 43.1, RDW Coeff of Sergio 14.4, Plt Count 219, MPV 9.6 05/20/19 06:13: Sodium 139, Potassium 4.1, Chloride 106, Carbon Dioxide 27.0, Anion Gap 6, BUN 14, Creatinine 0.85, Estim Creat Clear Calc 58.95, Est GFR (MDRD) Af Amer 88, Est GFR (MDRD) Non-Af 73, BUN/Creatinine Ratio 16.5, Glucose 179 H, Calcium 8.2 L, Total Bilirubin 0.30, Direct Bilirubin < 0.05, AST 30, ALT 40, Alkaline Phosphatase 143 H, Total Protein 6.6, Albumin 2.9 L, Globulin 3.7 05/20/19 06:13: Miscellaneous Test Pending Current Medications Acetaminophen (Tylenol) 1,000 mg PO Q8 [facility] Last Admin: 05/20/19 14:12 Dose: 1,000 mg Documented by: Cholecalciferol (Vitamin D) 5,000 unit PO DAILY@1200 [facility] Last Admin: 05/20/19 12:55 Dose: 5,000 unit Documented by: Enteral Nutritional Formula (Ensure Surgery) 237 ml PO TIDCM [facility] Last Admin: 05/20/19 12:56 Dose: 237 ml Documented by: Famotidine (Pepcid) 40 mg PO QHS [facility] Last Admin: 05/19/19 22:05 Dose: 40 mg Documented by: Gabapentin (Neurontin) 1,200 mg PO BID [facility] Last Admin: 05/20/19 09:32 Dose: 1,200 mg Documented by: Gabapentin (Neurontin) 600 mg PO 1200 [facility] Last Admin: 05/20/19 12:55 Dose: 600 mg Documented by: Lactated Ringer's () 1,000 mls @ 125 mls/hr IV .Q8H [facility] Last Admin: 05/20/19 05:53 Dose: Not Given Documented by: Insulin Human Lispro (Humalog Kwikpen ([facility])) 1 - 6 unit SC Q4H PRN PRN; Protocol PRN Reason: BG>/= 180, SEE PROTOCOL Ketorolac Tromethamine (Toradol ([facility])) 15 mg IV Q6H PRN PRN PRN Reason: Pain Score 1-5/10 Levothyroxine Sodium (Synthroid) 175 mcg PO DAILY@0600 [facility] Last Admin: 05/20/19 05:51 Dose: 175 mcg Documented by: Lisinopril (Zestril) 10 mg PO DAILY [facility] Last Admin: 05/20/19 09:28 Dose: Not Given Documented by: Meloxicam (Mobic) 7.5 mg PO BID [facility] Morphine Sulfate () 2 - 4 mg IV Q2H PRN PRN PRN Reason: Pain Score 6-10/10 Ondansetron HCl (Zofran) 4 mg IV Q8H PRN PRN PRN Reason: NAUSEA Oxycodone HCl (Oxyir) 5 - 10 mg PO Q4H PRN PRN PRN Reason: Pain Score 4-10/10 Last Admin: 05/20/19 02:01 Dose: 10 mg Documented by: Pantoprazole Sodium (Protonix) 20 mg PO DAILY [facility] Last Admin: 05/20/19 09:31 Dose: 20 mg Documented by: Pramipexole Dihydrochloride (Mirapex) 1.5 mg PO DAILY [facility] Last Admin: 02/15/20 09:33 Dose: 1.5 mg Documented by: Pramipexole Dihydrochloride (Mirapex) 3 mg PO QHS [facility] Last Admin: 05/19/19 22:05 Dose: 3 mg Documented by: Promethazine HCl (Phenergan) 12.5 mg IM Q6H PRN PRN; Protocol PRN Reason: NAUSEA/VOMITING Rivaroxaban (Xarelto) 10 mg PO DAILY@0600 [facility] Last Admin: 05/20/19 05:51 Dose: 10 mg Documented by: Senna/Docusate Sodium (Senokot-S, Aileen-Colace) 2 tablet PO BID [facility] Last Admin: 05/20/19 09:33 Dose: 2 tablet Documented by: Sodium Chloride () 10 - 40 ml IV UD PRN PRN Reason: SALINE FLUSH Last Admin: 05/20/19 02:05 Dose: 20 ml Documented by: Sodium Chloride ([place] Nasal [place]) 2 spray NASAL TID PRN PRN PRN Reason: NASAL DRYNESS Last Admin: 05/19/19 23:11 Dose: 2 spray Documented by: Venlafaxine HCl (Effexor Xr) 75 mg PO QHS [facility] Last Admin: 05/19/19 22:05 Dose: 75 mg Documented by: Venlafaxine HCl (Effexor Xr) 150 mg PO QHS [facility] Last Admin: 05/19/19 22:05 Dose: 150 mg Documented by: Voriconazole (Vfend) 200 mg PO BID [facility] Last Admin: 05/20/19 09:33 Dose: 200 mg Documented by: Assessment/Plan Patient seen by Reba CRAVEN under my supervision Patient was admitted to orthopedic service for planned removal of antibiotic spacer and replacement by Dr. Barton. Today's postop day 1. Hospitalist service was consulted to help with medical management. Patient seen and examined today. She felt well and had no complaints. Pain was well controlled. Per discussion with nurse, her blood pressure was noted to be low this morning. BP was down to 97/54. She denied any lightheadedness, dizziness or palpitations. Labs and vitals reviewed. WBC noted to have trended up to 13.5 from 7 on admission. Hemoglobin is 10.5 from 12.5 on admission. Labs otherwise unremarkable. o/e: Vital Signs Height 5 ft 3 in Weight: 268 lb 4.841 oz Weight in Pounds 268.3 lbs Pulse Ox 97 Temperature 98.3 F Pulse Rate 86 Respiratory Rate 16 Blood Pressure [BP] 99/54 Blood Pressure 97/54 Blood Pressure Position [BP] Semi-Fowlers Blood Pressure Position Semi-Fowlers General: Alert, Oriented x3, Cooperative HEENT: Atraumatic, PERRLA, EOMI, Normocephalic Neck: Supple, No JVD, Negative Carotid Bruits Lungs: Clear to auscultation, Normal air movement Cardiovascular: Regular rate, Regular Rhythm, Normal S1, Normal S2, No murmurs Abdomen: Bowel Sounds Present, Soft, Non Tender Extremities: No clubbing, No cyanosis, No edema, Capillary Refill Less than 3 Seconds Skin: No rashes, No breakdown, - - Right knee postop dressing clean dry and intact, drain in place Musculoskeletal: No Tenderness to Palpation of Joints or Extremities Neurological: Cranial nerves II-XII grossly intact Psych/Mental Status: Normal Affect, Appropriate Plan is to give 500 cc bolus of normal saline on account of hypotension and continue fluids (L/R) at 125 cc/h. Hold lisinopril. Management of surgical site as per orthopedics. 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 Continue Xarelto which she is taking for history of DVT. Rest as per MERISSA Griggs's notes which I have reviewed and endorsed. Code Visit Inpatient E&M: 94508 Subs Hosp L2
[2019-05-20] MEDS: Gabapentin 600 MG Tablet PO (12:55)
[2019-05-20] MEDS: Venlafaxine XR 75 MG Capsule PO (21:51)
[2019-05-20] MEDS: Venlafaxine XR 150 MG Capsule PO (21:51)
[2019-05-20] MEDS: Pramipexole Di-HCl 1 MG Tablet 3 MG PO (21:51)
[2019-05-20] MEDS: Famotidine 20 MG Tablet 40 MG PO (21:52)
[2019-05-21 03:32] VITALS: BP 112/71; PULSE 79; RESP 16; TEMP 36.5; O2SAT 98
[2019-05-21] MEDS: Acetaminophen 500 MG Tablet 1000 MG PO ×2 (05:32→13:37)
[2019-05-21] MEDS: Rivaroxaban 10 MG Tablet PO (05:32)
[2019-05-21] MEDS: Levothyroxine 175 MCG Tablet PO (05:35)
[2019-05-21 06:44] LABS: Hematocrit 32.7 % (37-47); Hemoglobin 10.1 g/dL (12.0-15.0); Mean Corp Hgb Conc 30.9 g/dL (32-36); Mean Corpuscular Hgb 25.6 pg (27.0-32.0); Mean Platelet Vol. 9.6 fl (6.2-12.0); Platelet Count 200 K/mm3 (150-450); RBC Distribution Width CV 14.6 % (11.6-14.6); RBC Distribution Width SD 44.6 fl (35.1-43.9); Red Blood Count 3.94 M/mm3 (4.2-5.4); White Blood Count 10.4 K/mm3 (4.4-11.0)
[2019-05-21 09:30] VITALS: BP 128/78; PULSE 80; RESP 18; TEMP 36.6; O2SAT 98
--- NOTE | 2019-05-21 10:24 | PCM.PROGNOTE ---
<Reba Correa - Last Filed: 05/21/19 10:29> Subjective: Patient seen and examined. Reports she is feeling well. Denies significant pain. Moving around her room without difficulty. - Physical Exam Vitals/I&O's: Vital Signs Temp Pulse Resp BP Pulse Ox 97.7 F L 79 16 112/71 98 05/21/19 03:32 05/21/19 03:32 05/21/19 03:32 05/21/19 03:32 05/21/19 03:32 Oxygen Flow Rate (L/min) 6 Oxygen Delivery Method Room Air Weight: 268 lb 4.841 oz Body Mass Index (BMI) 47.5 Finger Stick Blood Glucose 112 Intake and Output for Last 24 Hours 05/19/19 05/20/19 05/21/19 23:59 23:59 23:59 Intake Total 3926.66 / 3926.66 1452.75 / 1452.75 300 / 300 Output Total 560 / 1760 2957 / 2957 250 / 250 Balance 3366.66 / 2166.66 -1504.25 / -1504.25 50 / 50 General: Alert, Oriented x3, Cooperative HEENT: Atraumatic, PERRLA, EOMI, Normocephalic Neck: Supple, No JVD, Negative Carotid Bruits Lungs: Clear to auscultation, Normal air movement Cardiovascular: Regular rate, Regular Rhythm, Normal S1, Normal S2, No murmurs Abdomen: Bowel Sounds Present, Soft, Non Tender, Non-Distended, Obese Extremities: No clubbing, No cyanosis, No edema, Capillary Refill Less than 3 Seconds Skin: No rashes, No breakdown, - - Right knee postop dressing clean dry and intact, drain in place Musculoskeletal: No Tenderness to Palpation of Joints or Extremities Neurological: Cranial nerves II-XII grossly intact, Neuro grossly intact Psych/Mental Status: Normal Affect, Appropriate Microbiology Past 72 Hours 05/19/19 Unknown Tissue - Knee Gram Stain - Final 05/19/19 Unknown Tissue - Knee Wound Culture - Preliminary No growth-Final to follow 05/19/19 Unknown Tissue - Knee Gram Stain - Final 05/19/19 Unknown Tissue - Knee Wound Culture - Preliminary No growth-Final to follow 05/19/19 Unknown Tissue - Knee Gram Stain - Final 05/19/19 Unknown Tissue - Knee Wound Culture - Preliminary No growth-Final to follow 05/19/19 Unknown Tissue - Knee Gram Stain - Final 05/19/19 Unknown Tissue - Knee Wound Culture - Preliminary No growth-Final to follow 05/19/19 Unknown Tissue - Knee Gram Stain - Final 05/19/19 Unknown Tissue - Knee Wound Culture - Preliminary No growth-Final to follow Laboratory Results 05/21/19 05:52: WBC 10.4, RBC 3.94 L, Hgb 10.1 L, Hct 32.7 L, MCV 83.0, MCH 25.6 L, MCHC 30.9 L, RDW Std Deviation 44.6 H, RDW Coeff of Sergio 14.6, Plt Count 200, MPV 9.6 Current Medications Acetaminophen (Tylenol) 1,000 mg PO Q8 [facility] Last Admin: 05/21/19 05:32 Dose: 1,000 mg Documented by: Cholecalciferol (Vitamin D) 5,000 unit PO DAILY@1200 [facility] Last Admin: 05/20/19 12:55 Dose: 5,000 unit Documented by: Enteral Nutritional Formula (Ensure Surgery) 237 ml PO TIDCM [facility] Last Admin: 05/20/19 17:23 Dose: 237 ml Documented by: Famotidine (Pepcid) 40 mg PO QHS [facility] Last Admin: 05/20/19 21:52 Dose: 40 mg Documented by: Gabapentin (Neurontin) 1,200 mg PO BID [facility] Last Admin: 05/20/19 21:53 Dose: 1,200 mg Documented by: Gabapentin (Neurontin) 600 mg PO 1200 [facility] Last Admin: 05/20/19 12:55 Dose: 600 mg Documented by: Insulin Human Lispro (Humalog Kwikpen ([facility])) 1 - 6 unit SC Q4H PRN PRN; Protocol PRN Reason: BG>/= 180, SEE PROTOCOL Ketorolac Tromethamine (Toradol (Bk)) 15 mg IV Q6H PRN PRN PRN Reason: Pain Score 1-5/10 Levothyroxine Sodium (Synthroid) 175 mcg PO DAILY@0600 [facility] Last Admin: 05/21/19 05:35 Dose: 175 mcg Documented by: Lisinopril (Zestril) 10 mg PO DAILY [facility] Last Admin: 05/20/19 09:28 Dose: Not Given Documented by: Meloxicam (Mobic) 7.5 mg PO BID [facility] Morphine Sulfate () 2 - 4 mg IV Q2H PRN PRN PRN Reason: Pain Score 6-10/10 Ondansetron HCl (Zofran) 4 mg IV Q8H PRN PRN PRN Reason: NAUSEA Oxycodone HCl (Oxyir) 5 - 10 mg PO Q4H PRN PRN PRN Reason: Pain Score 4-10/10 Last Admin: 05/20/19 23:10 Dose: 10 mg Documented by: Pantoprazole Sodium (Protonix) 20 mg PO DAILY [facility] Last Admin: 05/20/19 09:31 Dose: 20 mg Documented by: Pramipexole Dihydrochloride (Mirapex) 1.5 mg PO DAILY [facility] Last Admin: 05/20/19 09:33 Dose: 1.5 mg Documented by: Pramipexole Dihydrochloride (Mirapex) 3 mg PO QHS [facility] Last Admin: 05/20/19 21:51 Dose: 3 mg Documented by: Promethazine HCl (Phenergan) 12.5 mg IM Q6H PRN PRN; Protocol PRN Reason: NAUSEA/VOMITING Rivaroxaban (Xarelto) 10 mg PO DAILY@0600 [facility] Last Admin: 05/21/19 05:32 Dose: 10 mg Documented by: Senna/Docusate Sodium (Senokot-S, Aileen-Colace) 2 tablet PO BID [facility] Last Admin: 05/20/19 21:52 Dose: 2 tablet Documented by: Sodium Chloride () 10 - 40 ml IV UD PRN PRN Reason: SALINE FLUSH Last Admin: 05/20/19 17:24 Dose: 10 ml Documented by: Sodium Chloride ([place] Nasal [place]) 2 spray NASAL TID PRN PRN PRN Reason: NASAL DRYNESS Last Admin: 05/19/19 23:11 Dose: 2 spray Documented by: Venlafaxine HCl (Effexor Xr) 75 mg PO QHS [facility] Last Admin: 05/20/19 21:51 Dose: 75 mg Documented by: Venlafaxine HCl (Effexor Xr) 150 mg PO QHS [facility] Last Admin: 05/20/19 21:51 Dose: 150 mg Documented by: Voriconazole (Vfend) 200 mg PO BID [facility] Last Admin: 05/20/19 21:52 Dose: 200 mg Documented by: Medical Necessity - Tobacco Use Smoking Status: Former smoker Tobacco Use: Non-smoker Assessment/Plan All Active Problems Infection of right knee (Acute) Septic joint (Acute) 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 Barton POD #2-patient has history of multiple surgeries on right knee. Patient initially underwent antibiotic spacer January 2019, prior cultures grew Neetu parapsilosis, Enterobacter and staph aureus. ID consulted. Management per ortho. Plan to continue oral voriconazole pending repeat cultures do not grow other organisms. 2. Hypertension-stable, continue lisinopril regimen. 3. Rheumatoid arthritis-on Plaquenil, held given #1. 4. Hypothyroidism-continue Synthroid regimen. 5. Depression/anxiety-continue Effexor. 6. GERD/history of ulcer-continue famotidine. 7. History of DVT-on Xarelto. Patient reports multiple DVTs in the past which have all been provoked following surgery. 8. RENNY-continue CPAP regimen. 9. Chronic COPD-patient reports very mild with no history of exacerbation. As needed albuterol aerosol. 10. Morbid obesity-encouraged diet and lifestyle medications. DVT prophylaxis-Xarelto This patient was seen by MERISSA Griggs under the supervision of Dr. Juarez. <Linda Juarez - Last Filed: 05/21/19 14:29> - Physical Exam Vitals/I&O's: Vital Signs Temp Pulse Resp BP Pulse Ox 97.8 F 80 18 128/78 H 98 05/21/19 09:30 05/21/19 09:30 05/21/19 09:30 05/21/19 09:30 05/21/19 09:30 Oxygen Flow Rate (L/min) 6 Oxygen Delivery Method Room Air Weight: 268 lb 4.841 oz Body Mass Index (BMI) 47.5 Finger Stick Blood Glucose 112 Intake and Output for Last 24 Hours 05/19/19 05/20/19 05/21/19 23:59 23:59 23:59 Intake Total 3926.66 / 3926.66 1452.75 / 1452.75 300 / 300 Output Total 560 / 1760 2957 / 2957 250 / 250 Balance 3366.66 / 2166.66 -1504.25 / -1504.25 50 / 50 Microbiology Past 72 Hours 05/19/19 Unknown Tissue - Knee Gram Stain - Final 05/19/19 Unknown Tissue - Knee Wound Culture - Preliminary No growth-Final to follow 05/19/19 Unknown Tissue - Knee Gram Stain - Final 05/19/19 Unknown Tissue - Knee Wound Culture - Preliminary No growth-Final to follow 05/19/19 Unknown Tissue - Knee Gram Stain - Final 05/19/19 Unknown Tissue - Knee Wound Culture - Preliminary No growth-Final to follow 05/19/19 Unknown Tissue - Knee Gram Stain - Final 05/19/19 Unknown Tissue - Knee Wound Culture - Preliminary No growth-Final to follow 05/19/19 Unknown Tissue - Knee Gram Stain - Final 05/19/19 Unknown Tissue - Knee Wound Culture - Preliminary No growth-Final to follow Laboratory Results 05/21/19 05:52: WBC 10.4, RBC 3.94 L, Hgb 10.1 L, Hct 32.7 L, MCV 83.0, MCH 25.6 L, MCHC 30.9 L, RDW Std Deviation 44.6 H, RDW Coeff of Sergio 14.6, Plt Count 200, MPV 9.6 Assessment/Plan Patient seen by Reba CRAVEN under my supervision She is seen and examined. She complained of minimal pain in the right knee at the surgical site. She denied any lightheadedness or dizziness, fever chills or palpitations. o/e: Vital Signs Height 5 ft 3 in Weight: 268 lb 4.841 oz Weight in Pounds 268.3 lbs Pulse Ox 97 Temperature 98.3 F Pulse Rate 86 Respiratory Rate 16 Blood Pressure [BP] 99/54 Blood Pressure 97/54 Blood Pressure Position [BP] Semi-Fowlers Blood Pressure Position Semi-Fowlers General: Alert, Oriented x3, Cooperative HEENT: Atraumatic, PERRLA, EOMI, Normocephalic Neck: Supple, No JVD, Negative Carotid Bruits Lungs: Clear to auscultation, Normal air movement Cardiovascular: Regular rate, Regular Rhythm, Normal S1, Normal S2, No murmurs Abdomen: Bowel Sounds Present, Soft, Non Tender Extremities: No clubbing, No cyanosis, No edema, Capillary Refill Less than 3 Seconds Skin: No rashes, No breakdown, - - Right knee postop dressing clean dry and intact, drain in place Musculoskeletal: No Tenderness to Palpation of Joints or Extremities Neurological: Cranial nerves II-XII grossly intact Psych/Mental Status: Normal Affect, Appropriate Hypotension has resolved after giving IVF. BP today is 128/78. Can resume lisinopril. ID on voriconazole; to continue voriconazole. Continue xarelto. To follow up with PCP, ID and orthopedic surgery. For discharge today. Rest as per MERISSA Griggs's notes which I have reviewed and endorsed. Code Visit Inpatient E&M: 12564 Subs Hosp L2
[2019-05-21] MEDS: Pramipexole Di-HCl 1 MG Tablet 1.5 MG PO (10:39)
[2019-05-21] MEDS: Meloxicam 7.5 MG Tablet PO (10:40)
[2019-05-21] MEDS: Gabapentin 600 MG Tablet PO (10:41)
[2019-05-21] MEDS: Lisinopril 10 MG Tablet PO (10:41)
[2019-05-21] MEDS: Voriconazole 200 MG Tablet PO (10:41)
[2019-05-21] MEDS: Pantoprazole Sodium 20 MG Tablet PO (10:42)
[2019-05-21] MEDS: Senna/Docusate Sodium 1 Tablet 2 TABLET PO (10:42)
--- NOTE | 2019-05-21 12:27 | PCM.PN.ORT ---
Subjective: Patient is doing well. She is comfortable. Minimal drainage output. Minimal swelling. No erythema. She is doing well with therapy. No acute events overnight. No chest pain or shortness of breath. - Physical Exam Vitals/I&O's: Vital Signs Temp Pulse Resp BP Pulse Ox 97.8 F 80 18 128/78 H 98 05/21/19 09:30 05/21/19 09:30 05/21/19 09:30 05/21/19 09:30 05/21/19 09:30 Oxygen Flow Rate (L/min) 6 Oxygen Delivery Method Room Air Weight: 268 lb 4.841 oz Body Mass Index (BMI) 47.5 Finger Stick Blood Glucose 112 Intake and Output for Last 24 Hours 05/19/19 05/20/19 05/21/19 23:59 23:59 23:59 Intake Total 3926.66 / 3926.66 1452.75 / 1452.75 300 / 300 Output Total 560 / 1760 2957 / 2957 250 / 250 Balance 3366.66 / 2166.66 -1504.25 / -1504.25 50 / 50 General: Alert, Oriented x3, Cooperative Extremities: - - Right lower extremity: Dressing is clean dry and intact Sensations intact to light touch saphenous, sural, superficial peroneal, deep peroneal, and tibial distributions Motors intact EHL, DF, PF calves are soft and supple Microbiology Past 72 Hours 05/19/19 Unknown Tissue - Knee Gram Stain - Final 05/19/19 Unknown Tissue - Knee Wound Culture - Preliminary No growth-Final to follow 05/19/19 Unknown Tissue - Knee Gram Stain - Final 05/19/19 Unknown Tissue - Knee Wound Culture - Preliminary No growth-Final to follow 05/19/19 Unknown Tissue - Knee Gram Stain - Final 05/19/19 Unknown Tissue - Knee Wound Culture - Preliminary No growth-Final to follow 05/19/19 Unknown Tissue - Knee Gram Stain - Final 05/19/19 Unknown Tissue - Knee Wound Culture - Preliminary No growth-Final to follow 05/19/19 Unknown Tissue - Knee Gram Stain - Final 05/19/19 Unknown Tissue - Knee Wound Culture - Preliminary No growth-Final to follow Laboratory Results 05/21/19 05:52: WBC 10.4, RBC 3.94 L, Hgb 10.1 L, Hct 32.7 L, MCV 83.0, MCH 25.6 L, MCHC 30.9 L, RDW Std Deviation 44.6 H, RDW Coeff of Sergio 14.6, Plt Count 200, MPV 9.6 Current Medications Acetaminophen (Tylenol) 1,000 mg PO Q8 [facility] Last Admin: 05/21/19 05:32 Dose: 1,000 mg Documented by: Cholecalciferol (Vitamin D) 5,000 unit PO DAILY@1200 [facility] Last Admin: 05/21/19 10:42 Dose: 5,000 unit Documented by: Enteral Nutritional Formula (Ensure Surgery) 237 ml PO TIDCM [facility] Last Admin: 05/21/19 10:39 Dose: Not Given Documented by: Famotidine (Pepcid) 40 mg PO QHS [facility] Last Admin: 05/20/19 21:52 Dose: 40 mg Documented by: Gabapentin (Neurontin) 1,200 mg PO BID [facility] Last Admin: 05/20/19 21:53 Dose: 1,200 mg Documented by: Gabapentin (Neurontin) 600 mg PO 1200 [facility] Last Admin: 05/21/19 10:41 Dose: 600 mg Documented by: Insulin Human Lispro (Humalog Kwikpen ([facility])) 1 - 6 unit SC Q4H PRN PRN; Protocol PRN Reason: BG>/= 180, SEE PROTOCOL Ketorolac Tromethamine (Toradol (Bkc)) 15 mg IV Q6H PRN PRN PRN Reason: Pain Score 1-5/10 Levothyroxine Sodium (Synthroid) 175 mcg PO DAILY@0600 [facility] Last Admin: 05/21/19 05:35 Dose: 175 mcg Documented by: Lisinopril (Zestril) 10 mg PO DAILY [facility] Last Admin: 05/21/19 10:41 Dose: 10 mg Documented by: Meloxicam (Mobic) 7.5 mg PO BID [facility] Last Admin: 05/21/19 10:40 Dose: 7.5 mg Documented by: Morphine Sulfate () 2 - 4 mg IV Q2H PRN PRN PRN Reason: Pain Score 6-10/10 Ondansetron HCl (Zofran) 4 mg IV Q8H PRN PRN PRN Reason: NAUSEA Oxycodone HCl (Oxyir) 5 - 10 mg PO Q4H PRN PRN PRN Reason: Pain Score 4-10/10 Last Admin: 05/20/19 23:10 Dose: 10 mg Documented by: Pantoprazole Sodium (Protonix) 20 mg PO DAILY [facility] Last Admin: 05/21/19 10:42 Dose: 20 mg Documented by: Pramipexole Dihydrochloride (Mirapex) 1.5 mg PO DAILY [facility] Last Admin: 05/21/19 10:39 Dose: 1.5 mg Documented by: Pramipexole Dihydrochloride (Mirapex) 3 mg PO QHS [facility] Last Admin: 05/20/19 21:51 Dose: 3 mg Documented by: Promethazine HCl (Phenergan) 12.5 mg IM Q6H PRN PRN; Protocol PRN Reason: NAUSEA/VOMITING Rivaroxaban (Xarelto) 10 mg PO DAILY@0600 [facility] Last Admin: 05/21/19 05:32 Dose: 10 mg Documented by: Senna/Docusate Sodium (Senokot-S, Aileen-Colace) 2 tablet PO BID [facility] Last Admin: 05/21/19 10:42 Dose: 2 tablet Documented by: Sodium Chloride () 10 - 40 ml IV UD PRN PRN Reason: SALINE FLUSH Last Admin: 05/20/19 17:24 Dose: 10 ml Documented by: Sodium Chloride ([place] Nasal [place]) 2 spray NASAL TID PRN PRN PRN Reason: NASAL DRYNESS Last Admin: 05/19/19 23:11 Dose: 2 spray Documented by: Venlafaxine HCl (Effexor Xr) 75 mg PO QHS [facility] Last Admin: 05/20/19 21:51 Dose: 75 mg Documented by: Venlafaxine HCl (Effexor Xr) 150 mg PO QHS [facility] Last Admin: 05/20/19 21:51 Dose: 150 mg Documented by: Voriconazole (Vfend) 200 mg PO BID [facility] Last Admin: 05/21/19 10:41 Dose: 200 mg Documented by: Medical Necessity - Tobacco Use Smoking Status: Former smoker Tobacco Use: Non-smoker Assessment/Plan All Active Problems Infection of right knee (Acute) Septic joint (Acute) Postop day 2 removal of antibiotic spacer, placement of revision collating antibiotic spacer with antifungals for fungal infection. 1. Pain control: Pain currently under control continue with current regimen 2. 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 Currently patient being treated with oral antifungals. Plan is for 6 to 12 weeks of antifungal treatment prior to considering antibiotic holiday/antifungal holiday. We will continue to follow cultures taken intraoperatively. Wound culture does show Gram stain positive for gram-positive cocci however, no growth on cultures. Antibiotic regimen/antifungal regimens managed per infectious disease 3. DVT prophylaxis: Xarelto for 2 weeks followed by aspirin 4. Therapy: Knee should remain in extension, knee immobilizer in place. Okay to loosen and remove the knee immobilizer if knee remains in extension and recliner or in bed for comfort of the patient. Patient is toe-touch weightbearing for 2 weeks followed by partial weightbearing thereafter. We will begin range of motion therapy after 2 weeks. 5. Drain: We will continue to monitor drain output. Maintain today likely pulled tomorrow. 6. Encourage incentive spirometry 7. Disposition: Patient is done very well. We discussed potential for possible organisms to grow out on cultures over the next couple of days to weeks. However at this time bacterial cultures are negative. I did discuss the patient that if things do come back positive we will have to arrange for IV antibiotics. Patient demonstrates an understanding and wishes to go home today. She has everything set up otherwise and is comfortable. [facility] Office:
--- NOTE | 2019-05-21 12:37 | PCM.DC.TKR ---
Discharge Diet: No Restrictions Discharge Activity: May Not Drive May shower in (days): 1 - Avoid direct water over the dressing Ice area for (Minutes): 20 - every hour while awake. Weight Bearing Status: Toe touch weight bearing - Right lower extremity Elevate: Operative Extremity Additional Activity Instructions:: Wear elastic stockings for 2 weeks after your surgery. Call your doctor if your incision/area has: Continuous Slow Oozing, Sudden Increased Bleeding, Increased Pain/ Swelling, Increased Redness, Foul Smelling Discharge Call your doctor if you observe: Fever of 101 or Higher, Coldness, Increased Pain, Numbness or Tingling, Change in Color, Calf discomfort, Uncontrolled pain Remove Dressing in (days):: 3 - Okay to remove dressing May 24, 2019 Additional Dressing/Incision Instructions:: If incision is clean dry and intact may leave the wound open to air and continue showering. If there is continued drainage continue daily dry dressing changes and keep incision clean dry and intact until there is no drainage. Allergies/Adverse Reactions: Allergies hydrocodone bitartrate [From Lortab] Allergy (Intermediate, Verified 05/19/19 05:47) Other lips swell, ataxia etodolac Allergy (Verified 05/19/19 05:47) Unknown misoprostol Allergy (Verified 05/19/19 05:47) Unknown celecoxib Adverse Reaction (Intermediate, Verified 05/19/19 05:47) Other heart palpitations diclofenac [Diclofenac] Adverse Reaction (Mild, Verified 05/19/19 05:47) Abd cramps/diarrhea ketorolac tromethamine [From Toradol] Adverse Reaction (Mild, Verified 05/19/19 05:47) Other balance issues metoclopramide HCl [From Reglan] Adverse Reaction (Mild, Verified 05/19/19 05:47) Other worsens restless leg atorvastatin [From Lipitor] Adverse Reaction (Verified 05/19/19 05:47) Other FACE SPASMS clindamycin Adverse Reaction (Verified 05/19/19 05:47) Mucosal lesions Medications to take at Discharge Levothyroxine [Synthroid] 175 mcg PO DAILY 09/01/13 Omeprazole [Prilosec] 20 mg PO DAILY 12/13/16 Cholecalciferol (Vitamin D3) [Vitamin D3] 5,000 unit PO DAILY@1200 01/25/17 Foley-3 Fatty Acids/Fish Oil [Fish Oil 1,000 mg Capsule] 2,000 mg PO DAILY 03/21/18 Gabapentin 1,200 mg PO BID 08/01/18 Gabapentin [Neurontin] 600 mg PO .LUNCHTIME 08/01/18 Lisinopril [Zestril] 10 mg PO DAILY 08/01/18 Pramipexole Di-HCl [Pramipexole Dihydrochloride] 1.5 tab PO DAILY 08/01/18 Pramipexole Di-HCl [Pramipexole Dihydrochloride] 3 mg PO QHS 08/01/18 Venlafaxine HCl [Effexor Xr] 1 tab PO QHS 08/01/18 Venlafaxine HCl [Venlafaxine HCl ER] 1 tab PO QHS 08/01/18 Aspirin [Aspir-Low] 81 mg PO DAILY 05/02/19 Aspirin/Acetaminophen/Caffeine [Excedrin Extra Strength Caplet] 2 ea PO 1500 05/02/19 Famotidine [Pepcid] 40 mg PO QHS 05/02/19 traMADol [Ultram] 50 - 100 mg PO Q6H PRN PRN 05/02/19 Voriconazole [Vfend] 200 mg PO BID #60 tab 05/19/19 Acetaminophen [Tylenol] 1,000 mg PO Q8 tablet 05/21/19 Ensure Surgery 237 ml PO TIDCM liquid 05/21/19 Meloxicam [Mobic] 7.5 mg PO BID #60 tab 05/21/19 Oxycodone [Oxyir] 5 - 10 mg PO Q4H PRN PRN 5 Days #45 tablet 05/21/19 Rivaroxaban [Xarelto] 10 mg PO DAILY@0600 #14 tab 05/21/19 Senna/Docusate Sodium [Senokot-S] 2 tablet PO BID tablet 05/21/19 Sodium Chloride 0.65% [[place] Nasal [place]] 2 spray NASAL TID PRN PRN spray.btl 05/21/19 The following prescriptions were given: Meloxicam [Mobic] 7.5 mg PO BID #60 tab Transmission Status: Pending to [id number] Oxycodone [Oxyir] 5 - 10 mg PO Q4H PRN PRN 5 Days #45 tablet PRN Reason: Pain Score 4-10/10 Transmission Status: Received by [id number] Voriconazole [Vfend] 200 mg PO BID #60 tab Transmission Status: Received by [id number] Rivaroxaban [Xarelto] 10 mg PO DAILY@0600 #14 tab Transmission Status: Pending to [id number] Primary Care Physician: Gustavo Ceballos MD [Primary Care Provider] - Test Results: Test results from this visit will be discussed in further detail at your follow-up appointment, if applicable. Please Follow Up With: Jimmy Ricketts PA-C When: June 02, 2019, 4 PM Proposed Discharge Date: 05/21/19
--- NOTE | 2019-05-21 12:40 | DS.PCM_ITS ---
Discharge Date and Diagnosis Date of Admission: 05/19/19 Date of Discharge: 05/21/19 - Primary Discharge Diagnosis Right knee PJ I - Secondary Discharge Diagnosis Chronic Problems History of DVT (deep vein thrombosis) (Chronic) Septic arthritis of knee, right (Chronic) Hx of total knee replacement (Chronic) right Restless leg (Chronic) RENNY (obstructive sleep apnea) (Chronic) Hypothyroidism (Chronic) Diverticulosis of colon without diverticulitis (Chronic) Depression (Chronic) Postphlebitic syndrome with inflammation (Chronic) Lumbar disc disease (Chronic) History of Graves' disease (Chronic) Diabetes mellitus (Chronic) Renal insufficiency (Chronic) Presence of IVC filter (Chronic) Obesity (Chronic) Edema leg (Chronic) Leg swelling (Chronic) DVT of lower extremity (deep venous thrombosis) (Chronic) Hospital Course and Treatment Infectious disease Hospitalist service Operations: total knee replacement - Removal of total knee replacement, placement of nonbiodegradable antibiotic delivery system. Summary of Care Provided: The patient is a 59 year old F with history of right knee P JI. Patient had previous antibiotic spacer placed. After going off antibiotics she had subsequent return of it symptoms and aspiration revealed a fungal infection. Patient was taken back to the operating room on May 19 for removal of antibiotic spacer and placement of a new antibiotic spacer this time with antifungals. She remained on antifungals afterwards. She did well. Postop day 2 the drainage from the Hemovac drain was decreased. Cultures did not show any new bacterial infection. At this time based on infectious these recommendations patient was ready for discharge on oral antifungals. - Physical Exam Vitals/I&O's: Vital Signs Temp Pulse Resp BP Pulse Ox 97.8 F 80 18 128/78 H 98 05/21/19 09:30 05/21/19 09:30 05/21/19 09:30 05/21/19 09:30 05/21/19 09:30 Oxygen Flow Rate (L/min) 6 Oxygen Delivery Method Room Air Weight: 268 lb 4.841 oz Body Mass Index (BMI) 47.5 Finger Stick Blood Glucose 112 Intake and Output for Last 24 Hours 05/19/19 05/20/19 05/21/19 23:59 23:59 23:59 Intake Total 3926.66 / 3926.66 1452.75 / 1452.75 300 / 300 Output Total 560 / 1760 2957 / 2957 250 / 250 Balance 3366.66 / 2166.66 -1504.25 / -1504.25 50 / 50 General: Alert, Oriented x3, Cooperative Extremities: - - Lower extremity: Dressing is clean dry and intact Sensations intact to light touch saphenous, sural, superficial peroneal, deep peroneal, and tibial distributions Motors intact EHL, DF, PF calves are soft and supple Microbiology Past 72 Hours 05/19/19 Unknown Tissue - Knee Gram Stain - Final 05/19/19 Unknown Tissue - Knee Wound Culture - Preliminary No growth-Final to follow 05/19/19 Unknown Tissue - Knee Gram Stain - Final 05/19/19 Unknown Tissue - Knee Wound Culture - Preliminary No growth-Final to follow 05/19/19 Unknown Tissue - Knee Gram Stain - Final 05/19/19 Unknown Tissue - Knee Wound Culture - Preliminary No growth-Final to follow 05/19/19 Unknown Tissue - Knee Gram Stain - Final 05/19/19 Unknown Tissue - Knee Wound Culture - Preliminary No growth-Final to follow 05/19/19 Unknown Tissue - Knee Gram Stain - Final 05/19/19 Unknown Tissue - Knee Wound Culture - Preliminary No growth-Final to follow Laboratory Results 05/21/19 05:52: WBC 10.4, RBC 3.94 L, Hgb 10.1 L, Hct 32.7 L, MCV 83.0, MCH 25.6 L, MCHC 30.9 L, RDW Std Deviation 44.6 H, RDW Coeff of Sergio 14.6, Plt Count 200, MPV 9.6 Current Medications Acetaminophen (Tylenol) 1,000 mg PO Q8 [facility] Last Admin: 05/21/19 05:32 Dose: 1,000 mg Documented by: Cholecalciferol (Vitamin D) 5,000 unit PO DAILY@1200 [facility] Last Admin: 05/21/19 10:42 Dose: 5,000 unit Documented by: Enteral Nutritional Formula (Ensure Surgery) 237 ml PO TIDCM [facility] Last Admin: 05/21/19 10:39 Dose: Not Given Documented by: Famotidine (Pepcid) 40 mg PO QHS [facility] Last Admin: 05/20/19 21:52 Dose: 40 mg Documented by: Gabapentin (Neurontin) 1,200 mg PO BID [facility] Last Admin: 05/20/19 21:53 Dose: 1,200 mg Documented by: Gabapentin (Neurontin) 600 mg PO 1200 [facility] Last Admin: 05/21/19 10:41 Dose: 600 mg Documented by: Insulin Human Lispro (Humalog Kwikpen ([facility])) 1 - 6 unit SC Q4H PRN PRN; Protocol PRN Reason: BG>/= 180, SEE PROTOCOL Ketorolac Tromethamine (Toradol ([facility])) 15 mg IV Q6H PRN PRN PRN Reason: Pain Score 1-5/10 Levothyroxine Sodium (Synthroid) 175 mcg PO DAILY@0600 [facility] Last Admin: 05/21/19 05:35 Dose: 175 mcg Documented by: Lisinopril (Zestril) 10 mg PO DAILY [facility] Last Admin: 05/21/19 10:41 Dose: 10 mg Documented by: Meloxicam (Mobic) 7.5 mg PO BID [facility] Last Admin: 05/21/19 10:40 Dose: 7.5 mg Documented by: Morphine Sulfate () 2 - 4 mg IV Q2H PRN PRN PRN Reason: Pain Score 6-10/10 Ondansetron HCl (Zofran) 4 mg IV Q8H PRN PRN PRN Reason: NAUSEA Oxycodone HCl (Oxyir) 5 - 10 mg PO Q4H PRN PRN PRN Reason: Pain Score 4-10/10 Last Admin: 05/20/19 23:10 Dose: 10 mg Documented by: Pantoprazole Sodium (Protonix) 20 mg PO DAILY [facility] Last Admin: 05/21/19 10:42 Dose: 20 mg Documented by: Pramipexole Dihydrochloride (Mirapex) 1.5 mg PO DAILY [facility] Last Admin: 05/21/19 10:39 Dose: 1.5 mg Documented by: Pramipexole Dihydrochloride (Mirapex) 3 mg PO QHS [facility] Last Admin: 05/20/19 21:51 Dose: 3 mg Documented by: Promethazine HCl (Phenergan) 12.5 mg IM Q6H PRN PRN; Protocol PRN Reason: NAUSEA/VOMITING Rivaroxaban (Xarelto) 10 mg PO DAILY@0600 [facility] Last Admin: 05/21/19 05:32 Dose: 10 mg Documented by: Senna/Docusate Sodium (Senokot-S, Aileen-Colace) 2 tablet PO BID [facility] Last Admin: 05/21/19 10:42 Dose: 2 tablet Documented by: Sodium Chloride () 10 - 40 ml IV UD PRN PRN Reason: SALINE FLUSH Last Admin: 05/20/19 17:24 Dose: 10 ml Documented by: Sodium Chloride ([place] Nasal [employer]) 2 spray NASAL TID PRN PRN PRN Reason: NASAL DRYNESS Last Admin: 05/19/19 23:11 Dose: 2 spray Documented by: Venlafaxine HCl (Effexor Xr) 75 mg PO QHS [facility] Last Admin: 05/20/19 21:51 Dose: 75 mg Documented by: Venlafaxine HCl (Effexor Xr) 150 mg PO QHS [facility] Last Admin: 05/20/19 21:51 Dose: 150 mg Documented by: Voriconazole (Vfend) 200 mg PO BID [facility] Last Admin: 05/21/19 10:41 Dose: 200 mg Documented by: Discharge Diet: No Restrictions Discharge Activity: May Not Drive May shower in (days): 1 - Avoid direct water over the dressing Ice area for (Minutes): 20 - every hour while awake. Weight Bearing Status: Toe touch weight bearing - Right lower extremity Keep extremity elevated above heart level: Operative Extremity Additional Activity Instructions:: Wear elastic stockings for 2 weeks after your surgery. Call your doctor if your incision/area has: Continuous Slow Oozing, Sudden Increased Bleeding, Increased Pain/ Swelling, Increased Redness, Foul Smelling Discharge Call your doctor if you observe: Fever of 101 or Higher, Coldness, Increased Pain, Numbness or Tingling, Change in Color, Calf discomfort, Uncontrolled pain Remove Dressing in (days):: 3 - Okay to remove dressing May 24, 2019 Additional Dressing/Incision Instructions:: If incision is clean dry and intact may leave the wound open to air and continue showering. If there is continued drainage continue daily dry dressing changes and keep incision clean dry and intact until there is no drainage. Home Medications: Medications to take at Discharge Levothyroxine [Synthroid] 175 mcg PO DAILY 09/01/13 Omeprazole [Prilosec] 20 mg PO DAILY 12/13/16 Cholecalciferol (Vitamin D3) [Vitamin D3] 5,000 unit PO DAILY@1200 01/25/17 [place]-3 Fatty Acids/Fish Oil [Fish Oil 1,000 mg Capsule] 2,000 mg PO DAILY 03/21/18 Gabapentin 1,200 mg PO BID 08/01/18 Gabapentin [Neurontin] 600 mg PO .LUNCHTIME 08/01/18 Lisinopril [Zestril] 10 mg PO DAILY 08/01/18 Pramipexole Di-HCl [Pramipexole Dihydrochloride] 1.5 tab PO DAILY 08/01/18 Pramipexole Di-HCl [Pramipexole Dihydrochloride] 3 mg PO QHS 08/01/18 Venlafaxine HCl [Effexor Xr] 1 tab PO QHS 08/01/18 Venlafaxine HCl [Venlafaxine HCl ER] 1 tab PO QHS 08/01/18 Aspirin [Aspir-Low] 81 mg PO DAILY 05/02/19 Aspirin/Acetaminophen/Caffeine [Excedrin Extra Strength Caplet] 2 ea PO 1500 05/02/19 Famotidine [Pepcid] 40 mg PO QHS 05/02/19 traMADol [Ultram] 50 - 100 mg PO Q6H PRN PRN 05/02/19 Voriconazole [Vfend] 200 mg PO BID #60 tab 05/19/19 Acetaminophen [Tylenol] 1,000 mg PO Q8 tablet 05/21/19 Ensure Surgery 237 ml PO TIDCM liquid 05/21/19 Meloxicam [Mobic] 7.5 mg PO BID #60 tab 05/21/19 Oxycodone [Oxyir] 5 - 10 mg PO Q4H PRN PRN 5 Days #45 tablet 05/21/19 Rivaroxaban [Xarelto] 10 mg PO DAILY@0600 #14 tab 05/21/19 Senna/Docusate Sodium [Senokot-S] 2 tablet PO BID tablet 05/21/19 Sodium Chloride 0.65% [[place] Nasal [employer]] 2 spray NASAL TID PRN PRN spray.btl 05/21/19 Following Prescrptions Were Given to Patient: Meloxicam [Mobic] 7.5 mg PO BID #60 tab Transmission Status: Pending to [id number] Oxycodone [Oxyir] 5 - 10 mg PO Q4H PRN PRN 5 Days #45 tablet PRN Reason: Pain Score 4-10/10 Transmission Status: Received by [id number] Voriconazole [Vfend] 200 mg PO BID #60 tab Transmission Status: Received by [id number] Rivaroxaban [Xarelto] 10 mg PO DAILY@0600 #14 tab Transmission Status: Pending to [id number] Primary Care Physician: Gustavo Ceballos MD [Primary Care Provider] - Please Follow Up With: Jimmy Ricketts PA-C When: June 02, 2019, 4 PM Medical Necessity - Tobacco Use Smoking Status: Former smoker Tobacco Use: Non-smoker Meaningful Use Info Meaningful Use Diagnoses (Choose all that apply): VTE - VTE Anticoag overlap given w/in hospital stay or rx'd at dc?: Yes Pt receive overlap for 5 days?: No Reason overlap not ordered, prescribed, or given for 5 days: Treatment Not Indicated
[2019-05-21] MEDS: Gabapentin 600 MG Tablet 1200 MG PO (13:36)
== END 2019-05-21 13:52 | disposition home or self-care (01) | DRG 486 ==
LOC: ACINP 05:30 → MS3 09:50
PROVIDERS: Anesthesiology; Internal Medicine Infectious Disease; Admitting Provider Specialist; Family Provider Family Medicine; PCP Family Medicine; Referring Provider Specialist; Visit Provider Student in an Organized Health Care Education/Training Program
PROC: 0SPC0EZ Removal of Articulating Spacer from Right Knee Joint, Open Approach (ICD-10-PCS; CPT 27488; principal; 2019-05-19 07:05)
DX: T84.53XA Infection and inflammatory reaction due to internal right knee prosthesis, initial encounter (principal); Z68.42 Body mass index [BMI] 45.0-49.9, adult; B49 Unspecified mycosis; J44.9 Chronic obstructive pulmonary disease, unspecified; Z86.718 Personal history of other venous thrombosis and embolism; Z96.651 Presence of right artificial knee joint; Z87.891 Personal history of nicotine dependence; Z87.442 Personal history of urinary calculi; G25.81 Restless legs syndrome; K21.9 Gastro-esophageal reflux disease without esophagitis; F32.9 Major depressive disorder, single episode, unspecified; M06.9 Rheumatoid arthritis, unspecified; Z79.82 Long term (current) use of aspirin; Z79.899 Other long term (current) drug therapy; Z79.891 Long term (current) use of opiate analgesic; I10 Essential (primary) hypertension; G47.30 Sleep apnea, unspecified; M79.672 Pain in left foot; E03.9 Hypothyroidism, unspecified; E66.01 Morbid (severe) obesity due to excess calories; Z79.02 Long term (current) use of antithrombotics/antiplatelets; F41.9 Anxiety disorder, unspecified; G47.33 Obstructive sleep apnea (adult) (pediatric)
CPT/HCPCS: 36415; 73560; 73630; 80048; 80076; 82962; 83735; 84443; 85025; 85027; 85652; 86140; 87015; 87070; 87075; 87077; 87081; 87102; 87106; 87116; 87205; 87206; 97116; 97163; 97166; 97530; 97535; 99251; C1776; J7040; J7120; A4216; G0463; J0285; J2405; J3260

== ENCOUNTER → 2019-06-07 13:05 | Outpatient (CLI) | payer BC, SELFPAY ==
[2019-05-19 12:50] VITALS: BMI 47.5
--- NOTE | 2019-06-07 13:10 | VDLE_ITS ---
Reason For Study: Infection of RT prosthetic knee RIGHT GSV is normal. CFV is compressible, spontaneous, phasic, competent and demonstrates normal augmentation. FV is compressible, spontaneous, phasic, competent and demonstrates normal augmentation. POP V is compressible, spontaneous, phasic, competent and demonstrates normal augmentation. T/P Trunk is compressible. PTV is compressible. RT PerV is compressible. Procedure Exam performed in department. A preliminary report was called and/or faxed to Dr. Bernal @ [phone]. Interpretation Summary Deep veins of the right lower extremity are patent and compressible segmentally. There is no evidence of right lower extremity deep vein thrombosis. Valvular competence appears intact within the proximal deep venous system on the right . The right great saphenous vein appears patent and compressible segmentally. Ordering Physician: Zhen Bernal Referring Physician: Gustavo Ceballos Performed By: Princess Buenrostro RDCS, RVT
[2019-06-07 15:29] LABS: Hematocrit 34.1 % (37-47); Hemoglobin 10.5 g/dL (12.0-15.0); Mean Corp Hgb Conc 30.8 g/dL (32-36); Mean Corpuscular Hgb 25.4 pg (27.0-32.0); Mean Corpuscular Volume 82.4 fL (81-99); Mean Platelet Vol. 9.3 fl (6.2-12.0); Platelet Count 333 K/mm3 (150-450); RBC Distribution Width CV 14.9 % (11.6-14.6); Red Blood Count 4.14 M/mm3 (4.2-5.4); White Blood Count 7.3 K/mm3 (4.4-11.0)
[2019-06-07 15:31] LABS: AST(SGOT) 20 U/L (15-37); Alanine Aminotransfer ALT/SGPT 24 U/L (13-56); Albumin, Serum 3.3 g/dL (3.2-5.0); Alkaline Phosphatase 231 U/L (45-117); Anion Gap 5 (5-15); BUN 20 mg/dL (7-18); BUN/Creat Ratio 22.6 RATIO (10-20); Bilirubin, Direct < 0.05 mg/dL (0.00-0.30); Calcium,Total 8.7 mg/dL (8.5-10.1); Chloride 110 mmol/L (98-107); Creatinine, Serum 0.88 mg/dL (0.55-1.02); EST Glomerular Filtration Rate 69 mL/min (>60); Est Glom Filt Rate - Afr Amer 84 mL/min (>60); Globulin 4.4 g/dL (2.2-4.2); Glucose 98 mg/dL (74-106); Potassium 3.9 mmol/L (3.5-5.1); Protein, Total 7.7 g/dL (6.4-8.2); Sodium Level 142 mmol/L (136-145)
[2019-06-07 15:32] LABS: Erythrocyte Sedimentation Rate 53 mm/hr (0-30)
== END ==
PROVIDERS: PCP Family Medicine; Referring Provider Internal Medicine Infectious Disease; Visit Provider Internal Medicine Infectious Disease
DX: T84.59XA Infection and inflammatory reaction due to other internal joint prosthesis, initial encounter (principal)
CPT/HCPCS: 36415; 80048; 80076; 85027; 85652; 86140; 93971

== ENCOUNTER → 2019-06-23 | Outpatient (CLI) | payer BC, SELFPAY ==
[2019-05-19 12:50] VITALS: BMI 47.5
== END | disposition home or self-care (01) ==
LOC: LAB 15:35
PROVIDERS: PCP Family Medicine; Referring Provider Internal Medicine Infectious Disease; Visit Provider Internal Medicine Infectious Disease
DX: T84.50XA Infection and inflammatory reaction due to unspecified internal joint prosthesis, initial encounter (principal); B48.8 Other specified mycoses; Y79.2 Prosthetic and other implants, materials and accessory orthopedic devices associated with adverse incidents
CPT/HCPCS: 36415

== ENCOUNTER → 2019-06-29 15:45 | Outpatient (CLI) | payer BC, SELFPAY ==
[2019-05-19 12:50] VITALS: BMI 47.5
--- NOTE | 2019-06-29 15:48 | VDLE_ITS ---
Reason For Study: Infection total knee replacement RIGHT LEFT GSV is normal. GSV is normal. CFV is compressible, spontaneous, phasic, CFV is compressible, spontaneous, phasic, competent and demonstrates normal competent, and demonstrates normal augmentation. augmentation. FV is compressible, spontaneous, phasic, FV is compressible, spontaneous, phasic, competent and demonstrates normal competent and demonstrates normal augmentation. augmentation. POP V is compressible, spontaneous, phasic, POP V is compressible, spontaneous, phasic, competent and demonstrates normal competent and demonstrates normal augmentation. augmentation. T/P Trunk is compressible. T/P Trunk is compressible. PTV is compressible. PTV is compressible. RT PerV is compressible. LT PerV is compressible. Procedure Exam performed in department. A preliminary report was called and/or faxed to [facility]. Interpretation Summary Deep veins of the lower extremities are bilaterally patent and compressible segmentally. There is no evidence of deep vein thrombosis on either side. Valvular competence appears intact within the proximal deep venous systems bilaterally. The great saphenous veins appear bilaterally patent and compressible segmentally. Ordering Physician: Major Barton Referring Physician: Gustavo Ceballos Performed By: Queenie Palomares RVT
== END ==
PROVIDERS: PCP Family Medicine; Referring Provider Specialist; Visit Provider Specialist
DX: T84.53XA Infection and inflammatory reaction due to internal right knee prosthesis, initial encounter (principal); Z96.653 Presence of artificial knee joint, bilateral
CPT/HCPCS: 93970

== ENCOUNTER → 2019-07-07 | Outpatient (CLI) | payer BC, SELFPAY ==
[2019-05-19 12:50] VITALS: BMI 47.5
[2019-07-07 07:44] LABS: Hematocrit 39.5 % (37-47); Hemoglobin 11.8 g/dL (12.0-15.0); Mean Corp Hgb Conc 29.9 g/dL (32-36); Mean Corpuscular Hgb 24.5 pg (27.0-32.0); Mean Platelet Vol. 9.5 fl (6.2-12.0); Platelet Count 274 K/mm3 (150-450); RBC Distribution Width CV 18.6 % (11.6-14.6); RBC Distribution Width SD 54.4 fl (35.1-43.9); Red Blood Count 4.82 M/mm3 (4.2-5.4); White Blood Count 7.6 K/mm3 (4.4-11.0)
[2019-07-07 08:15] LABS: AST(SGOT) 21 U/L (15-37); Alanine Aminotransfer ALT/SGPT 23 U/L (13-56); Albumin, Serum 3.5 g/dL (3.2-5.0); Alkaline Phosphatase 227 U/L (45-117); Anion Gap 7 (5-15); BUN 15 mg/dL (7-18); Bilirubin, Direct 0.07 mg/dL (0.00-0.30); Calcium,Total 8.8 mg/dL (8.5-10.1); Chloride 105 mmol/L (98-107); EST Glomerular Filtration Rate 60 mL/min (>60); Est Glom Filt Rate - Afr Amer 73 mL/min (>60); Globulin 4.1 g/dL (2.2-4.2); Glucose 163 mg/dL (74-106); Potassium 3.9 mmol/L (3.5-5.1); Protein, Total 7.6 g/dL (6.4-8.2); Sodium Level 138 mmol/L (136-145)
[2019-07-07 08:32] LABS: Erythrocyte Sedimentation Rate 42 mm/hr (0-30)
== END | disposition home or self-care (01) ==
LOC: LAB.FUTURE 07:21 → LAB 07:21
PROVIDERS: PCP Family Medicine; Referring Provider Internal Medicine Infectious Disease; Visit Provider Internal Medicine Infectious Disease
DX: T84.59XA Infection and inflammatory reaction due to other internal joint prosthesis, initial encounter (principal); Z96.659 Presence of unspecified artificial knee joint
CPT/HCPCS: 36415; 80048; 80076; 85027; 85652

== ENCOUNTER → 2019-08-07 | Outpatient (CLI) | payer BC, SELFPAY ==
[2019-05-19 12:50] VITALS: BMI 47.5
[2019-08-07 08:20] LABS: Erythrocyte Sedimentation Rate 36 mm/hr (0-30)
[2019-08-07 08:22] LABS: Absolute Lymphocyte Count 2.03 X10^3/uL (0.83-4.51); Absolute Neutrophil Count 3.9 X10^3/uL (2.0-7.7); Basophil# 0.08 X10^3/uL; Basophil% 1.1 % (0-1); Eosinophil# 0.41 X10^3/uL; Eosinophils% 5.8 % (0-5); Hematocrit 43.8 % (37-47); Hemoglobin 13.2 g/dL (12.0-15.0); Lymphocyte # 2.03 X10^3/ul (4.0); Lymphocyte % 28.7 % (19-41); Mean Corp Hgb Conc 30.1 g/dL (32-36); Mean Corpuscular Hgb 25.6 pg (27.0-32.0); Mean Corpuscular Volume 84.9 fL (81-99); Mean Platelet Vol. 9.2 fl (6.2-12.0); Monocyte# 0.63 X10^3/uL; Monocyte% 8.9 % (0-10); NRBC Flagged by Analyzer 0 % (0-5); Neutrophil % 55.1 % (47-70); Platelet Count 234 K/mm3 (150-450); RBC Distribution Width CV 19.4 % (11.6-14.6); RBC Distribution Width SD 56.8 fl (35.1-43.9); Red Blood Count 5.16 M/mm3 (4.2-5.4); White Blood Count 7.1 K/mm3 (4.4-11.0)
[2019-08-07 08:50] LABS: AST(SGOT) 22 U/L (15-37); Alanine Aminotransfer ALT/SGPT 20 U/L (13-56); Albumin, Serum 3.5 g/dL (3.2-5.0); Alkaline Phosphatase 218 U/L (45-117); Anion Gap 5 (5-15); BUN 17 mg/dL (7-18); BUN/Creat Ratio 17.9 RATIO (10-20); Bilirubin, Direct 0.07 mg/dL (0.00-0.30); Chloride 105 mmol/L (98-107); Creatinine, Serum 0.95 mg/dL (0.55-1.02); EST Glomerular Filtration Rate 64 mL/min (>60); Est Glom Filt Rate - Afr Amer 77 mL/min (>60); Globulin 4.2 g/dL (2.2-4.2); Glucose 107 mg/dL (74-106); Potassium 4.3 mmol/L (3.5-5.1); Protein, Total 7.7 g/dL (6.4-8.2); Sodium Level 139 mmol/L (136-145)
== END | disposition home or self-care (01) ==
LOC: LAB.FUTURE 07:53 → LAB 07:55
PROVIDERS: PCP Family Medicine; Referring Provider Internal Medicine Infectious Disease; Visit Provider Internal Medicine Infectious Disease
DX: T84.53XA Infection and inflammatory reaction due to internal right knee prosthesis, initial encounter (principal); Y79.2 Prosthetic and other implants, materials and accessory orthopedic devices associated with adverse incidents; Z96.651 Presence of right artificial knee joint
CPT/HCPCS: 36415; 80048; 80076; 85025; 85652; 86140

== ENCOUNTER → 2019-08-21 | Outpatient (CLI) | payer BC, SELFPAY ==
[2019-05-19 12:50] VITALS: BMI 47.5
[2019-08-21 17:25] LABS: Absolute Neutrophil Count 4.9 X10^3/uL (2.0-7.7); Basophil# 0.08 X10^3/uL; Basophil% 0.9 % (0-1); Eosinophil# 0.47 X10^3/uL; Eosinophils% 5.5 % (0-5); Hematocrit 42.9 % (37-47); Hemoglobin 13.1 g/dL (12.0-15.0); Lymphocyte % 28.3 % (19-41); Mean Corp Hgb Conc 30.5 g/dL (32-36); Mean Corpuscular Hgb 25.3 pg (27.0-32.0); Mean Platelet Vol. 10.4 fl (6.2-12.0); Monocyte# 0.56 X10^3/uL; Monocyte% 6.6 % (0-10); NRBC Flagged by Analyzer 0 % (0-5); Neutrophil # 4.93 X10^3/uL (2.7-7.7); Neutrophil % 58.1 % (47-70); Platelet Count 266 K/mm3 (150-450); RBC Distribution Width CV 18.4 % (11.6-14.6); RBC Distribution Width SD 55.5 fl (35.1-43.9); Red Blood Count 5.17 M/mm3 (4.2-5.4); White Blood Count 8.5 K/mm3 (4.4-11.0)
[2019-08-21 17:34] LABS: Erythrocyte Sedimentation Rate 28 mm/hr (0-30)
== END | disposition home or self-care (01) ==
LOC: LAB 15:38
PROVIDERS: PCP Family Medicine; Referring Provider Specialist; Visit Provider Specialist
DX: T84.53XA Infection and inflammatory reaction due to internal right knee prosthesis, initial encounter (principal); M25.461 Effusion, right knee; Z96.651 Presence of right artificial knee joint
CPT/HCPCS: 36415; 85025; 85652; 86140

== ENCOUNTER 2019-09-06 07:06 | Inpatient (IN) | payer BC, SELFPAY ==
[2019-05-19 12:50] VITALS: BMI 47.5
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
[2019-08-31 17:46] LABS: Hemoglobin A1c 6.1 % (3.8-5.6)
[2019-08-31 18:22] LABS: Anion Gap 7 (5-15); BUN 18 mg/dL (7-18); BUN/Creat Ratio 20.3 RATIO (10-20); Calcium,Total 9.2 mg/dL (8.5-10.1); Chloride 109 mmol/L (98-107); Creatinine, Serum 0.89 mg/dL (0.55-1.02); EST Glomerular Filtration Rate 69 mL/min (>60); Est Glom Filt Rate - Afr Amer 84 mL/min (>60); Glucose 111 mg/dL (74-106); Potassium 3.8 mmol/L (3.5-5.1); Sodium Level 144 mmol/L (136-145)
[2019-08-31 18:32] LABS: Thyroid Stim Hormone (TSH) 1.59 uIU/mL (0.358-3.74)
[2019-09-06] VITALS (12 sets, daily range): BP systolic 97–155; BP diastolic 57–81; PULSE 80–93; RESP 12–20; TEMP 36.1–36.6; O2SAT 93–98; BMI 47.2
[2019-09-06] MEDS: Lactated Ringers 1,000 ML 125 ML IV ×5 (07:38→15:30)
[2019-09-06] MEDS: Acetaminophen 500 MG Tablet 1000 MG PO ×3 (07:39→21:36)
[2019-09-06 08:00] LABS: Bedside Glucose 103 mg/dL (70-110)
[2019-09-06] MEDS: Cefazolin 2 GM in 0.9% Normal Saline 100 ML IV (09:06)
[2019-09-06] MEDS: dexAMETHasone 10 MG/ML Vial IV (09:43)
[2019-09-06] MEDS: Joint Pain Solution (NO KETOROLAC) 100 ML IV (11:58)
--- NOTE | 2019-09-06 12:36 | PCM.OPRPT ---
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 Removal nonbiodegradable antibiotic delivery systems Description of Surgical Findings:: Stable knee, patient did have limited flexion intraoperatively due to contractures despite extensive releases. junior systems analyst: Teressa Damon Type of Anesthesia:: Spinal Anesthesiologist: Malvin Dumont Special Medications: 3 g Ancef, 1 g TXA at incision, 1 g TXA closure, 10 mg Decadron, joint cocktail (5 mg Duramorph, 30 mL of 0.5% Ropivicaine, 1000 units of epinephrine, 30 mg of Toradol). 2 additional grams of Ancef 2 and half hours after initial incision Specimen's removed: 3 separate specimens were sent to microbiology Estimated Blood Loss (mL): 150 Fluids Replaced: 2000 mL crystalloid Description of Procedure: Implants used: Femur: [place] size 4 total stabilized right distal femur with 100 x 15 mm cemented stem, distal augments 5 medial, 10 lateral posterior augments 5 and 5. Tibia: [place] size 4 universal tibial baseplate with 100 x 12 mm cemented stem Poly: 16mm TS Patella: 32 mm press-fit Brief history operative indications: 59-year-old f with total knee replacement with previous P JI. Patient underwent 2 previous antibiotic spacers for recurrence of infection. After going on antibiotic holiday following the second spacer patient did not demonstrate further infectious symptoms. At this time we agreed to proceed with revision total knee replacement which had risks which include but not limited to blood loss, DVTs, PEs, nervous damage, infection, the risk of anesthesia. Patient demonstrate understanding was able to sign informed consent. Medical clearance was obtained. Procedure: On the date of procedure patient's R lower extremity was marked in the preoperative area. The patient was then taken back to the operating room where the patient was placed on the table in the supine position. All bony prominences were identified a well-padded. Anesthesia assumed control of the C-spine and airway and remained controlled throughout the remainder of the procedure. A tourniquet was placed on the R upper thigh and the leg was prepped in a sterile fashion. The surgeon then scrubbed at this time. Upon reentering the room R lower extremity was draped in a standard orthopedic fashion. A timeout was then called and everyone agreed upon the side, the site, the procedure to be performed, patient's identity and antibiotics given. An Esmarch bandage was used to exsanguinate the extremity and the tourniquet was placed up to 250 mmHg with the knee in flexion. A midline skin incision was made using the previous incision and extending it proximally and distally to identify normal tissue planes. Medial and lateral flaps were developed appropriate releases. The standard medial parapatellar arthrotomy with a quadriceps snip proximally was made and the patella was subluxed laterally. At this time an aggressive synovectomy was performed re-creating the medial gutter first, then the suprapatellar pouch than the lateral gutter. Once this was completed the knee was flexed up an osteotome was used to remove the tibial polyethylene after breaking up the proximal cement bone interface. The remainder of the synovium was debrided. The standard deep MCL release was done and the patella scar pad was resected and lateral releases were performed. Next our attention was directed to the femur. Where flexible osteotomes and TPS saw were used to break up the implant cement interface. This was done both medially and laterally. After this a bone tamp was used to remove the femur component from the end of the bone. This was done with minimal bone loss. At this time attention was now directed towards the proximal tibia. Our attention was then turned to the tibia where the intramedullary canal was reamed to 15 and a size C tibial cone was reamed. We then made a cleanup cut on the tibia, A drop marylin was then used to verify the cut. A size 4 tibial base plate was selected. the knee was flexed and the tibial component was pinned into place and the boss reamer was used to ream the proximal medullary canal. The trial implant was impacted in its prepared position. Our attention was then turned back to the femur or the femur intramedullary canal was reamed to 18 mm using the previous implants a size 4 TCG cutting guide with a 18 mm stem was put into place. The medial epicondyle was used to set the joint line. With this TCG cutting guide we used a 16 mm polyethylene trial in order to help balance the gaps. Once the gaps were appropriately balanced the guide was firmly pinned into place. Distal cuts were made with 5 mm augments medially and 10 mm augment laterally. Posterior cuts were made with 5 mm augments medially and 5 mm augment laterally. Using the guide the box cut was made using a reciprocating saw. The appropriate trials were then placed on the femur and tibia. A trial polyethylene was trialed to ensure proper balancing and stability of the knee. Patella tracking, was then verified and corrected appropriately as needed. Our attention was then directed to the patella. Patella remained intact and appropriate. Based on x-rays it was firmly fixed. Patellar tracking was again checked and deemed appropriate. Final components were verified and opened, 6 liters of normal saline were irrigated throughout the joint under low-pressure lavage. Then the cement was mixed in a vacuum. Nexalogy Simplex cement with tobramycin was used. The wound was copiously irrigated with normal saline. When the cement was ready cement plugs were placed in the tibial cone was placed the components were cemented into place starting with the tibia, femur. The trial poly component was placed and the knee was placed in full extension. All excess cement was removed in the process. Once the cement had cured the tracking, alignment and balance were verified and a size 16 mm TS polyethylene component was placed. Once the final components were placed the knee was irrigated with a a chlorhexidine lavage was used and the wound was copiously irrigated with normal saline solution and the remainder of the periarticular injection was given. The wound was closed in a layer davies fashion using #1 vicryl interrupted sutures for the arthrotomy, 2-0 interrupted Vicryl for the subcuticular layer and dilip for final skin closure. A sterile compressive dressing was then placed. The patient was then awakened from anesthesia, transferred to the [facility] and transferred to the PACU for recovery. Post op plan DVT ppx: Roto for DVT prophylaxis, thigh high compression stockings Follow up: in office in 2 weeks for wound check PT: to start POD #0 at hospital, outpatient PT should be arranged. Patient will also be on montelukast for 90 days due to increased contractures. Patient will be on doxycycline for 1 week as we follow cultures. I also have consulted infectious disease to evaluate for long-term use of antibiotics based on patient's history of multiple infections and significant medical comorbidities. - Complications NONE - Admit VTE Documentation VTE Present on Admission: No VTE Mechan Device Prophylaxis: SCD's, Thigh High BLANCA Hose VTE Pharm Prophylaxis ordered?: Yes
--- NOTE | 2019-09-06 13:10 | RAD_ITS ---
STUDY: X-RAY - RIGHT KNEE REASON FOR EXAM: Female, 59 years old. Post op TECHNIQUE: 2 view(s) of the knee. COMPARISON: 05/19/2019 FINDINGS: Patient has undergone redo of a recently replaced right knee joint. Components with longer stems have been placed into the distal femur and proximal tibia. Alignment is anatomic. No plain film evidence of postoperative comp location. Normal postoperative soft tissue swelling and subcutaneous emphysema noted. RAD/Knee 1 or 2 Views IMPRESSION: ReVision of a recently replaced right hip joint demonstrates anatomic alignment. No plain film evidence of postoperative complication Electronically Signed: José Manuel Freeman MD at 13:34 EDT , Service support ,
--- NOTE | 2019-09-06 15:06 | PN_ITS ---
Subjective: 59-year-old female status post planned revision right total knee replacement with removal of an antibiotic spacer. Prior to surgery, her medical history was stable with no major changes in her medications. She states she is doing okay after surgery, she does have some pain and her incision did start to bleed a little bit with therapy. She also has left ankle pain though this is been chronic since she is had her issue with her right knee. She was getting ankle injections however when her knee got infected she had to stop the injections and has been off of her Plaquenil as well for rheumatoid arthritis. Vitals/I&O's: Vital Signs Temp Pulse Resp BP Pulse Ox 97.9 F 90 16 107/57 L 95 09/06/19 14:41 09/06/19 14:41 09/06/19 14:41 09/06/19 14:41 09/06/19 14:41 Oxygen Flow Rate (L/min) 6 Oxygen Delivery Method Simple Mask Weight: 275 lb 2.19 oz Body Mass Index (BMI) 47.2 Finger Stick Blood Glucose 112 Intake and Output for Last 24 Hours 09/04/19 09/05/19 09/06/19 23:59 23:59 23:59 Intake Total 2330 / 2330 Balance 2330 / 2330 General: Alert, Oriented x3, Cooperative, No apparent distress HEENT: Atraumatic, PERRLA, EOMI, Normocephalic Oral: Moist Mucosa Neck: Supple, No JVD Lungs: Clear to auscultation, Normal air movement, No rhonchi, No wheeze, No rales, Diminished Cardiovascular: Regular rate, Regular Rhythm, Normal S1, Normal S2, No murmurs Abdomen: Soft, Non Tender, Non-Distended, No Hepato-splenomegaly Extremities: No edema, Capillary Refill Less than 3 Seconds Skin: No rashes, No breakdown, Incision - Some bleeding from her incision therapy Neurological: Neuro grossly intact, Sensory exam intact to light touch and pain Psych/Mental Status: Normal Affect, Appropriate Laboratory Results 09/05/19 11:59: COVID-19 (LIZ) Not Detected 09/06/19 07:29: POC Glucose 103 Current Medications Acetaminophen (Tylenol) 1,000 mg PO Q8 [facility] Aspirin (Ecotrin) 81 mg PO DAILYCM [facility] Cholecalciferol (Vitamin D (25mcg)) 5,000 unit PO DAILY@1200 [facility] Doxycycline Monohydrate (Doxycycline) 100 mg PO BID [facility] Enteral Nutritional Formula (Ensure Surgery) 237 ml PO TIDCM [facility] Famotidine (Pepcid) 40 mg PO QHS [facility] Ferrous Sulfate (Ferrous Sulfate) 650 mg PO DAILYCM [facility] Folic Acid (Folic Acid) 1 mg PO DAILYCM [facility] Gabapentin (Neurontin) 1,200 mg PO BID [facility] Gabapentin (Neurontin) 600 mg PO LUNCH [facility] Lactated Ringer's () 1,000 mls @ 125 mls/hr IV .Q8H [facility] Last Admin: 09/06/19 12:30 Dose: 125 mls/hr Documented by: Lactated Ringer's () 1,000 mls @ 125 mls/hr IV .Q8H [facility] Cefazolin Sodium () 1 gm in 50 mls @ 150 mls/hr IV Q8H [facility] Stop: 09/07/19 01:19 Insulin Human Lispro (Humalog Kwikpen (Bkc)) 1 - 6 unit SC Q4H PRN PRN; Protocol PRN Reason: BG>/= 180, SEE PROTOCOL Levothyroxine Sodium (Synthroid) 175 mcg PO DAILY@0600 [facility] Lisinopril (Zestril) 10 mg PO DAILY [facility] Montelukast Sodium (Singulair) 10 mg PO DAILY@1700 [facility] Morphine Sulfate () 2 - 4 mg IV Q2H PRN PRN PRN Reason: Pain Score 6-10/10 Non-Formulary Medication (Pramipexole Di-Hcl [Pramipexole Dihydrochloride]) 1.5 tab PO DAILY [facility] Non-Formulary Medication (Pramipexole Di-Hcl [Pramipexole Dihydrochloride]) 3 mg PO QHS [facility] Ondansetron HCl (Zofran) 4 mg IV Q8H PRN PRN PRN Reason: NAUSEA Oxycodone HCl (Oxyir) 5 - 10 mg PO Q4H PRN PRN PRN Reason: Pain Score 4-10/10 Pantoprazole Sodium (Protonix) 20 mg PO DAILY [facility] Promethazine HCl (Phenergan) 12.5 mg IM Q6H PRN PRN; Protocol PRN Reason: NAUSEA/VOMITING Rivaroxaban (Xarelto) 10 mg PO DAILY@0600 [facility] Senna/Docusate Sodium (Senokot-S, Aileen-Colace) 2 tablet PO BID [facility] Sodium Chloride () 5 - 15 ml IV UD PRN PRN Reason: SALINE FLUSH Sodium Chloride () 10 - 40 ml IV UD PRN PRN Reason: SALINE FLUSH Venlafaxine HCl (Effexor Xr) 75 mg PO QHS [facility] Venlafaxine HCl (Effexor Xr) 150 mg PO QHS [facility] STROKE Vital Signs/Narrative: Vital Signs Temp Pulse Resp BP Pulse Ox 09/06/19 14:41 97.9 F 90 16 107/57 L 95 09/06/19 14:00 97.0 F L 93 18 115/59 L 96 09/06/19 13:45 91 18 121/71 H 97 09/06/19 13:30 91 16 97/58 L 97 09/06/19 13:15 93 16 118/65 98 09/06/19 13:00 91 16 125/81 H 97 09/06/19 12:48 97.0 F L 92 16 135/75 H 94 Medical Necessity - Tobacco Use Smoking Status: Former smoker Assessment/Plan All Active Problems Infection of right knee (Acute) Septic joint (Acute) 1. Status post revision of right total knee 09/06/2019 -Pain management per primary -PT/OT -Continue with Xarelto for DVT prophylaxis 2. HTN/morbid obesity -She had a stress test in July 2018 which was unremarkable, she had upper chest pain -We will continue with aspirin, but hold her lisinopril until repeat BMP in the morning and if creatinine is okay to can restart -Discussed lifestyle modification 3. Iron deficiency anemia -Hemoglobin on 08/21/2019 is 13.1, will monitor -Continue with iron supplementation 4. Anxiety/depression -Stable -Continue with Effexor 5. GERD -Stable -Continue with her PPI and her Pepcid, may be transitioning to being on only Pepcid 6. Hypothyroidism -Stable -Continue Synthroid 7. RA -She does see a net developer as an outpatient and used to be on Plaquenil as well as steroid injections into her ankle until her knee infection which when she stopped both medications around January of last year DVT: Xarelto Inpatient E&M: 46739 [facility] Hosp L3
[2019-09-06] MEDS: Morphine 2 MG/ML Syringe IV (15:25)
[2019-09-06] MEDS: oxyCODONE 5 MG Tablet PO ×2 (15:25→22:45)
--- NOTE | 2019-09-06 16:40 | PCM.HP.ID ---
Problem List (1) Infection of right knee Status: Acute Reason for Consult: PJI Consulted by: Dr. Barton History of Present Illness: The patient is a 59 year old F with h/o recurrent R knee PJI. Had GBS infection 01/2017, then admitted 01/2019 for spacer placement, surg cxs with MSSA and one also with enterobacter. Discharged on iv abx, was feeling ok, but had worsening in March. 04/03/19 aspiration cx with Neetu parapsilosis. Started on fluconazole, susc came back resistant, so changed to voriconazole. Has been on this for several weeks, knee improved, no fever, no n/v/d, no vision changes. Taken to OR 05/19/[address] Barton for removal of hardware and new spacer placement. Continued on voriconazole with overall improvement. Has been off abx for past 3-4 weeks. Taken to OR today 09/06/19 for spacer removal and placement of new joint. Feeling ok, some bleeding now post op. No fever, no n/v/d. Full ROS performed and neg except as noted above. - Medical History Past Medical History (Chronic Problems): Chronic Problems History of DVT (deep vein thrombosis) (Chronic) Septic arthritis of knee, right (Chronic) Hx of total knee replacement (Chronic) right Restless leg (Chronic) RENNY (obstructive sleep apnea) (Chronic) Hypothyroidism (Chronic) Diverticulosis of colon without diverticulitis (Chronic) Depression (Chronic) Postphlebitic syndrome with inflammation (Chronic) Lumbar disc disease (Chronic) History of Graves' disease (Chronic) Diabetes mellitus (Chronic) Renal insufficiency (Chronic) Presence of IVC filter (Chronic) Obesity (Chronic) Edema leg (Chronic) Leg swelling (Chronic) DVT of lower extremity (deep venous thrombosis) (Chronic) Allergies/Adverse Reactions: Allergies hydrocodone bitartrate [From Lortab] Allergy (Intermediate, Verified 09/06/19 07:31) Other lips swell, ataxia etodolac Allergy (Verified 09/06/19 07:31) Unknown misoprostol Allergy (Verified 09/06/19 07:31) Unknown celecoxib Adverse Reaction (Intermediate, Verified 09/06/19 07:31) Other heart palpitations diclofenac [Diclofenac] Adverse Reaction (Mild, Verified 09/06/19 07:31) Abd cramps/diarrhea ketorolac tromethamine [From Toradol] Adverse Reaction (Mild, Verified 09/06/19 07:31) Other balance issues metoclopramide HCl [From Reglan] Adverse Reaction (Mild, Verified 09/06/19 07:31) Other worsens restless leg atorvastatin [From Lipitor] Adverse Reaction (Verified 09/06/19 07:31) Other FACE SPASMS clindamycin Adverse Reaction (Verified 09/06/19 07:31) Mucosal lesions Home Medications: Ambulatory Orders Medication Instructions Recorded Levothyroxine [Synthroid] 175 mcg PO DAILY 09/01/13 Omeprazole [Prilosec] 20 mg PO DAILY 12/13/16 Cholecalciferol (Vitamin D3) 5,000 unit PO DAILY@1200 01/25/17 [Vitamin D3] [place]-3 Fatty Acids/Fish Oil [Fish 2,000 mg PO DAILY 03/21/18 Oil 1,000 mg Capsule] Gabapentin 1,200 mg PO BID 08/01/18 Gabapentin [Neurontin] 600 mg PO .LUNCHTIME 08/01/18 Lisinopril [Zestril] 10 mg PO DAILY 08/01/18 Pramipexole Di-HCl [Pramipexole 1.5 tab PO DAILY 08/01/18 Dihydrochloride] Pramipexole Di-HCl [Pramipexole 3 mg PO QHS 08/01/18 Dihydrochloride] Venlafaxine HCl [Effexor Xr] 1 tab PO QHS 08/01/18 Venlafaxine HCl [Venlafaxine HCl 1 tab PO QHS 08/01/18 ER] Aspirin [Aspir-Low] 81 mg PO DAILY 05/02/19 Aspirin/Acetaminophen/Caffeine 2 ea PO 1500 05/02/19 [Excedrin Extra Strength Caplet] Famotidine [Pepcid] 40 mg PO QHS 05/02/19 traMADol [Ultram] 50 - 100 mg PO Q6H PRN PRN 05/02/19 Acetaminophen [Tylenol] 1,000 mg PO Q8 08/30/19 Ferrous Sulfate 130 mg PO DAILY 08/30/19 Folic Acid 1 mg PO DAILY 08/30/19 - Social History SMOKING STATUS:: Former smoker Vital Signs Temp Pulse Resp BP Pulse Ox 97.9 F 90 20 H 107/57 L 96 09/06/19 14:41 09/06/19 14:41 09/06/19 15:10 09/06/19 14:41 09/06/19 15:10 Oxygen Flow Rate (L/min) 2 Oxygen Delivery Method Nasal Cannula Weight: 124.8 kg Body Mass Index (BMI) 47.2 Finger Stick Blood Glucose 112 Laboratory Tests Past 24 Hrs 09/05/19 11:59 COVID-19 (LIZ) Not Detected - Other Studies Radiology: [] reviewed Other Studies: [] Route of nutrition/ use of supplements: [] Nutritional Intake: [] IV Site: [] Clarke Catheter: [] - Physical Exam General: Alert, Oriented x3, Cooperative, No apparent distress HEENT: Atraumatic, PERRLA, EOMI Neck: Supple, No Nodes Lungs: Clear to auscultation, Normal air movement Cardiovascular: Regular rate, Regular Rhythm, No murmurs Abdomen: Soft, Non Tender, Non-Distended Extremities: Edema Skin: Incision - some bleeding on R knee, inferior part of incision IV Site: Peripheral, without redness Musculoskeletal: No Tenderness to Palpation of Joints or Extremities - other than R knee Neurological: Cranial nerves II-XII grossly intact - Assessment/Plan Antibiotics: [] Assessment/Plan: [] Recurrent R knee PJI, most recently with C. parapsilosis, now taken to OR 09/06/[address] Barton for spacer removal and joint replacement. Surg cx pending. On po doxy. Will add voriconazole back, plan on at least a few more months of abx given her complicated history. Will follow, thank you.
[2019-09-06] MEDS: Cefazolin 1 GM/50 ML BAG IV (16:44)
[2019-09-06 16:55] LABS: Bedside Glucose 160 mg/dL (70-110)
[2019-09-06] MEDS: Ensure Surgery 237 ML LIQUID PO (18:10)
[2019-09-06] MEDS: Montelukast 10 MG Tablet PO (18:10)
[2019-09-06] MEDS: Doxycycline 100 MG CAPSULE PO (21:36)
[2019-09-06] MEDS: Famotidine 20 MG Tablet 40 MG PO (21:41)
[2019-09-06] MEDS: Senna/Docusate Sodium 1 Tablet 2 TABLET PO (21:41)
[2019-09-06] MEDS: Pramipexole Di-HCl 1 MG Tablet 3 MG PO (21:46)
[2019-09-06] MEDS: Voriconazole 200 MG Tablet 400 MG PO (21:47)
[2019-09-06] MEDS: Gabapentin 600 MG Tablet 1200 MG PO (21:50)
[2019-09-07] MEDS: Cefazolin 1 GM/50 ML BAG IV (00:34)
[2019-09-07 02:58] VITALS: BP 123/70; PULSE 77; RESP 16; TEMP 36.4; O2SAT 92
[2019-09-07 05:54] LABS: Hematocrit 42.9 % (37-47); Hemoglobin 13.3 g/dL (12.0-15.0); Mean Corpuscular Hgb 26.4 pg (27.0-32.0); Mean Corpuscular Volume 85.3 fL (81-99); Mean Platelet Vol. 9.9 fl (6.2-12.0); Platelet Count 210 K/mm3 (150-450); RBC Distribution Width CV 17.8 % (11.6-14.6); RBC Distribution Width SD 54.4 fl (35.1-43.9); Red Blood Count 5.03 M/mm3 (4.2-5.4); White Blood Count 13.6 K/mm3 (4.4-11.0)
[2019-09-07] MEDS: oxyCODONE 5 MG Tablet PO ×5 (06:12→22:44)
[2019-09-07] MEDS: Rivaroxaban 10 MG Tablet PO (06:12)
[2019-09-07] MEDS: Levothyroxine 175 MCG Tablet PO (06:12)
[2019-09-07] MEDS: Acetaminophen 500 MG Tablet 1000 MG PO ×3 (06:12→20:44)
[2019-09-07 06:29] LABS: Anion Gap 6 (5-15); BUN 14 mg/dL (7-18); BUN/Creat Ratio 19.5 RATIO (10-20); Calcium,Total 8.8 mg/dL (8.5-10.1); Chloride 104 mmol/L (98-107); Creatinine, Serum 0.72 mg/dL (0.55-1.02); EST Glomerular Filtration Rate 88 mL/min (>60); Est Glom Filt Rate - Afr Amer 107 mL/min (>60); Estimated Creatinine Clearance 72.65 ml/min; Glucose 127 mg/dL (74-106); Sodium Level 139 mmol/L (136-145)
--- NOTE | 2019-09-07 07:52 | PN_ITS ---
Reason for Visit: Follow-up for PJ I and revised right TKR Blood pressure is controlled. Objective: Blood pressure is controlled. No tachypnea or hypoxia. Vitals/I&O's: Vital Signs Temp Pulse Resp BP Pulse Ox 97.6 F L 77 16 123/70 H 92 09/07/19 02:58 09/07/19 02:58 09/07/19 02:58 09/07/19 02:58 09/07/19 02:58 Oxygen Flow Rate (L/min) 2 Oxygen Delivery Method Room Air Weight: 275 lb 2.19 oz Body Mass Index (BMI) 47.2 Finger Stick Blood Glucose 112 Intake and Output for Last 24 Hours 09/05/19 09/06/19 09/07/19 23:59 23:59 23:59 Intake Total 5242.5 / 5242.5 862.5 / 862.5 Balance 5242.5 / 5242.5 862.5 / 862.5 General: Alert, Oriented x3, Cooperative HEENT: Atraumatic, PERRLA, EOMI, Normocephalic Neck: Supple, No JVD, Negative Carotid Bruits Lungs: Clear to auscultation, No rhonchi, No wheeze, No rales, Diminished Cardiovascular: Regular rate, Regular Rhythm, Normal S1, Normal S2, No murmurs Abdomen: Bowel Sounds Present, Soft, Non Tender, Non-Distended Extremities: No edema, Capillary Refill Less than 3 Seconds Skin: No rashes, No breakdown Musculoskeletal: Arthritic Changes, - - Right TKR Neurological: Cranial nerves II-XII grossly intact, Deep Tendon Reflexes 2+/4 and Symmetrical, Neuro grossly intact Psych/Mental Status: Normal Affect, Appropriate Laboratory Results 09/06/19 07:29: POC Glucose 103 09/06/19 16:36: POC Glucose 160 H 09/07/19 05:35: WBC 13.6 H, RBC 5.03, Hgb 13.3, Hct 42.9, MCV 85.3, MCH 26.4 L, MCHC 31.0 L, RDW Std Deviation 54.4 H, RDW Coeff of Sergio 17.8 H, Plt Count 210, MPV 9.9 09/07/19 05:35: Sodium 139, Potassium 4.0, Chloride 104, Carbon Dioxide 29.0, Anion Gap 6, BUN 14, Creatinine 0.72, Estim Creat Clear Calc 72.65, Est GFR (MDRD) Af Amer 107, Est GFR (MDRD) Non-Af 88, BUN/Creatinine Ratio 19.5, Glucose 127 H, Calcium 8.8 Current Medications Acetaminophen (Tylenol) 1,000 mg PO Q8 [facility] Last Admin: 09/07/19 06:12 Dose: 1,000 mg Documented by: Aspirin (Ecotrin) [facility] Cholecalciferol (Vitamin D (25mcg)) 5,000 unit PO DAILY@1200 [facility] Doxycycline Monohydrate (Doxycycline) 100 mg PO BID [facility] Last Admin: 09/06/19 21:36 Dose: 100 mg Documented by: Enteral Nutritional Formula (Ensure Surgery) 237 ml PO TIDCM [facility] Last Admin: 09/06/19 18:10 Dose: 237 ml Documented by: Famotidine (Pepcid) 40 mg PO QHS [facility] Last Admin: 09/06/19 21:41 Dose: 40 mg Documented by: Ferrous Sulfate (Ferrous Sulfate) [facility] Folic Acid (Folic Acid) 1 [facility] Gabapentin (Neurontin) 1,200 mg PO BID [facility] Last Admin: 09/06/19 21:50 Dose: 1,200 mg Documented by: Gabapentin (Neurontin) 600 mg PO LUNCH [facility] Insulin Human Lispro (Humalog Kwikpen (Bkc)) 1 - 6 unit SC Q4H PRN PRN; Protocol PRN Reason: BG>/= 180, SEE PROTOCOL Levothyroxine Sodium (Synthroid) 175 mcg PO DAILY@0600 [facility] Last Admin: 09/07/19 06:12 Dose: 175 mcg Documented by: Montelukast Sodium (Singulair) 10 mg PO DAILY@1700 [facility] Last Admin: 09/06/19 18:10 Dose: 10 mg Documented by: Morphine Sulfate () 2 - 4 mg IV Q2H PRN PRN PRN Reason: Pain Score 6-10/10 Last Admin: 09/06/19 15:25 Dose: 2 mg Documented by: Ondansetron HCl (Zofran) 4 mg IV Q8H PRN PRN PRN Reason: NAUSEA Oxycodone HCl (Oxyir) 5 - 10 mg PO Q4H PRN PRN PRN Reason: Pain Score 4-10/10 Last Admin: 09/07/19 06:12 Dose: 10 mg Documented by: Pantoprazole Sodium (Protonix) 20 mg PO DAILY [facility] Pramipexole Dihydrochloride (Mirapex) 1.5 mg PO DAILYCM [facility] Pramipexole Dihydrochloride (Mirapex) 3 mg PO QHS [facility] Last Admin: 09/06/19 21:46 Dose: 3 mg Documented by: Promethazine HCl (Phenergan) 12.5 mg IM Q6H PRN PRN; Protocol PRN Reason: NAUSEA/VOMITING Rivaroxaban (Xarelto) 10 mg PO DAILY@0600 [facility] Last Admin: 09/07/19 06:12 Dose: 10 mg Documented by: Senna/Docusate Sodium (Senokot-S, Aileen-Colace) 2 tablet PO BID [facility] Last Admin: 09/06/19 21:41 Dose: 2 tablet Documented by: Sodium Chloride () 5 - 15 ml IV UD PRN PRN Reason: SALINE FLUSH Sodium Chloride () 10 - 40 ml IV UD PRN PRN Reason: SALINE FLUSH Venlafaxine HCl (Effexor Xr) 75 mg PO DAILY [facility] Venlafaxine HCl (Effexor Xr) 150 mg PO DAILY [facility] Voriconazole (Vfend) 400 mg PO Q12 [facility] Stop: 09/07/19 10:01 Last Admin: 09/06/19 21:47 Dose: 400 mg Documented by: Voriconazole (Vfend) 200 mg PO BID [facility] Medical Necessity - Tobacco Use Smoking Status: Former smoker Assessment/Plan All Active Problems Infection of right knee (Acute) Septic joint (Acute) 59-year-old female is being admitted to orthopedic service for elective revision of right TKR with removal of antibiotic spacer. 1. 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 Patient is being evaluated by PT and OT. Plan for discharge to home. -Continue with Xarelto for DVT prophylaxis 2. HTN/morbid obesity: -She had a stress test in July 2018 which was unremarkable; for chest pain. Continue aspirin. BMP shows creatinine on baseline therefore lisinopril resumed. -Weight loss counseling done. 3. Iron deficiency anemia: Hemoglobin is stable H&H 13/43. -Continue with iron supplementation 4. Anxiety/depression -Stable -Continue with Effexor 5. GERD -Stable -Recommend only Pepcid. Follow with PCP 6. Hypothyroidism -Stable -Continue Synthroid 7. RA -She does see a immersion metalcleaner as an outpatient and used to be on Plaquenil as well as steroid injections into her ankle until her knee infection which when she stopped both medications around January of last year. Follow-up immersion metalcleaner. DVT: [place] Patient is being discharged home with home health aide. Inpatient E&M: 62104 Subs Hosp L2
[2019-09-07] MEDS: Pantoprazole Sodium 20 MG Tablet PO (08:18)
[2019-09-07] MEDS: Voriconazole 200 MG Tablet 400 MG PO (08:18)
[2019-09-07] MEDS: Senna/Docusate Sodium 1 Tablet 2 TABLET PO ×2 (08:18→20:46)
[2019-09-07] MEDS: Aspirin E.C. 81 MG Tablet PO (08:19)
[2019-09-07] MEDS: Folic Acid 1 MG Tablet PO (08:19)
[2019-09-07] MEDS: Doxycycline 100 MG CAPSULE PO ×2 (08:19→20:45)
[2019-09-07] MEDS: Pramipexole Di-HCl 0.5 MG Tablet 1.5 MG PO (08:20)
[2019-09-07] MEDS: Ferrous Sulfate 325 MG Tablet 650 MG PO ×2 (08:21)
[2019-09-07] MEDS: Gabapentin 600 MG Tablet 1200 MG PO ×2 (08:22→20:46)
[2019-09-07 08:29] VITALS: BP 143/70; PULSE 77; RESP 18; TEMP 36.8; O2SAT 98
[2019-09-07] MEDS: Ensure Surgery 237 ML LIQUID PO ×2 (08:39→12:41)
[2019-09-07 08:59] VITALS: O2SAT 95
--- NOTE | 2019-09-07 09:46 | PCM.PN.ORT ---
Subjective: The patient was walking down to the therapy room for physical therapy. Patient was seated in a chair in the therapy room during examination. Patient denies chest pain, shortness of breath, dizziness, lightheadedness, nausea, vomiting or calf pain. Pain is controlled on medications. No adverse events overnight. She states she is doing well overall. Objective: Vital signs stable. Patient is afebrile. Patient is able to plantar flex and dorsiflex actively. Sensation is intact to light touch to saphenous, sural, superficial and deep peroneal and tibial nerve distributions. Dressing has a large amount of serosanguineous drainage noted at the distal one third of the dressing. Patient states this occurred when she got up to ambulate for physical therapy. Negative Homans bilaterally. Negative signs and symptoms of DVT. - Physical Exam Vitals/I&O's: Vital Signs Temp Pulse Resp BP Pulse Ox 98.2 F 77 18 143/70 H 95 09/07/19 08:29 09/07/19 08:29 09/07/19 08:29 09/07/19 08:29 09/07/19 08:59 Oxygen Flow Rate (L/min) 2 Oxygen Delivery Method Room Air Weight: 124.8 kg Body Mass Index (BMI) 47.2 Finger Stick Blood Glucose 112 Intake and Output for Last 24 Hours 09/05/19 09/06/19 09/07/19 23:59 23:59 23:59 Intake Total 5242.5 / 5242.5 862.5 / 862.5 Balance 5242.5 / 5242.5 862.5 / 862.5 General: Alert, Oriented x3, Cooperative Extremities: No Calf Tenderness, Edema - Postoperative swelling appreciated. Skin: Incision - Incision located over the right knee. Psych/Mental Status: Normal Affect, Appropriate Laboratory Results 09/06/19 16:36: POC Glucose 160 H 09/07/19 05:35: WBC 13.6 H, RBC 5.03, Hgb 13.3, Hct 42.9, MCV 85.3, MCH 26.4 L, MCHC 31.0 L, RDW Std Deviation 54.4 H, RDW Coeff of Sergio 17.8 H, Plt Count 210, MPV 9.9 09/07/19 05:35: Sodium 139, Potassium 4.0, Chloride 104, Carbon Dioxide 29.0, Anion Gap 6, BUN 14, Creatinine 0.72, Estim Creat Clear Calc 72.65, Est GFR (MDRD) Af Amer 107, Est GFR (MDRD) Non-Af 88, BUN/Creatinine Ratio 19.5, Glucose 127 H, Calcium 8.8 Current Medications Acetaminophen (Tylenol) 1,000 mg PO Q8 [facility] Last Admin: 09/07/19 06:12 Dose: 1,000 mg Documented by: [facility]rin) [facility] Last Admin: 09/07/19 08:19 Dose: 81 mg Documented by: Cholecalciferol (Vitamin D (25mcg)) 5,000 unit PO DAILY@1200 [facility] Doxycycline Monohydrate (Doxycycline) 100 mg PO BID [facility] Last Admin: 09/07/19 08:19 Dose: 100 mg Documented by: Enteral Nutritional Formula (Ensure Surgery) 237 ml PO TIDCM [facility] Last Admin: 09/07/19 08:39 Dose: 237 ml Documented by: Famotidine (Pepcid) 40 mg PO QHS [facility] Last Admin: 09/06/19 21:41 Dose: 40 mg Documented by: Ferrous Sulfate (Ferrous Sulfate) [facility] Last Admin: 09/07/19 08:21 Dose: 650 mg Documented by: Folic Acid (Folic Acid) [facility] Last Admin: 09/07/19 08:19 Dose: 1 mg Documented by: Gabapentin (Neurontin) 1,200 mg PO BID [facility] Last Admin: 09/07/19 08:22 Dose: 1,200 mg Documented by: Gabapentin (Neurontin) 600 mg PO LUNCH [facility] Insulin Human Lispro (Humalog Julien (Bkc)) 1 - 6 unit SC Q4H PRN PRN; Protocol PRN Reason: BG>/= 180, SEE PROTOCOL Levothyroxine Sodium (Synthroid) 175 mcg PO DAILY@0600 [facility] Last Admin: 09/07/19 06:12 Dose: 175 mcg Documented by: Montelukast Sodium (Singulair) 10 mg PO DAILY@1700 [facility] Last Admin: 09/06/19 18:10 Dose: 10 mg Documented by: Morphine Sulfate () 2 - 4 mg IV Q2H PRN PRN PRN Reason: Pain Score 6-10/10 Last Admin: 09/06/19 15:25 Dose: 2 mg Documented by: Ondansetron HCl (Zofran) 4 mg IV Q8H PRN PRN PRN Reason: NAUSEA Oxycodone HCl (Oxyir) 5 - 10 mg PO Q4H PRN PRN PRN Reason: Pain Score 4-10/10 Last Admin: 09/07/19 06:12 Dose: 10 mg Documented by: Pantoprazole Sodium (Protonix) 20 mg PO DAILY [facility] Last Admin: 09/07/19 08:18 Dose: 20 mg Documented by: Pramipexole Dihydrochloride (Mirapex) [facility] Last Admin: 09/07/19 08:20 Dose: 1.5 mg Documented by: Pramipexole Dihydrochloride (Mirapex) 3 mg PO QHS [facility] Last Admin: 09/06/19 21:46 Dose: 3 mg Documented by: Promethazine HCl (Phenergan) 12.5 mg IM Q6H PRN PRN; Protocol PRN Reason: NAUSEA/VOMITING Rivaroxaban (Xarelto) 10 mg PO DAILY@0600 [facility] Last Admin: 09/07/19 06:12 Dose: 10 mg Documented by: Senna/Docusate Sodium (Senokot-S, Aileen-Colace) 2 tablet PO BID [facility] Last Admin: 09/07/19 08:18 Dose: 2 tablet Documented by: Sodium Chloride () 5 - 15 ml IV UD PRN PRN Reason: SALINE FLUSH Sodium Chloride () 10 - 40 ml IV UD PRN PRN Reason: SALINE FLUSH Venlafaxine HCl (Effexor Xr) 75 mg PO DAILY [facility] Last Admin: 09/07/19 08:27 Dose: Not Given Documented by: Venlafaxine HCl (Effexor Xr) 150 mg PO DAILY [facility] Last Admin: 09/07/19 08:28 Dose: Not Given Documented by: Voriconazole (Vfend) 400 mg PO Q12 [facility] Stop: 09/07/19 10:01 Last Admin: 09/07/19 08:18 Dose: 400 mg Documented by: Voriconazole (Vfend) 200 mg PO BID [facility] Medical Necessity - Tobacco Use Smoking Status: Former smoker Assessment/Plan All Active Problems Infection of right knee (Acute) Septic joint (Acute) 1. Status post removal of antibiotic spacer with conversion to a total knee arthroplasty, right knee post operative day #1. 2. Continue pain medications: Tylenol and oxycodone 3. DVT prophylaxis: Xarelto 4. PT/OT: Weightbearing as tolerated 5. H & H: 13.3/42.9, asymptomatic 6. WBCs: 13.6, afebrile.patient was given Decadron intraoperatively. 7. Encouraged incentive spirometry. 8. Continue postoperative medical management per medicine. 9: Postoperative drainage: Dressing with a large amount of drainage noted at the distal one third portion. Mepilex was removed. A dry compressive dressing was applied by the nurse and myself. The nurse was instructed to perform compressive dry dressing changes as needed throughout the day.. We will reassess the drainage tomorrow. 10. Disposition: The patient is doing well. At this time the plan is to keep her an additional night to monitor the drainage from the right knee. We will reassess tomorrow, September 08, 2019. If the drainage has resolved we will reapply a Mepilex dressing. If the incision continues to drain we will consider the application of a wound VAC. The plan will be for discharge home tomorrow, September 08, 2019.
--- NOTE | 2019-09-07 10:10 | PCM.PN.ID ---
Subjective: Bleeding again with PT today. No fever, no n/v/d. - Physical Exam Vitals/I&O's: Vital Signs Temp Pulse Resp BP Pulse Ox 98.2 F 77 18 143/70 H 95 09/07/19 08:29 09/07/19 08:29 09/07/19 08:29 09/07/19 08:29 09/07/19 08:59 Oxygen Flow Rate (L/min) 2 Oxygen Delivery Method Room Air Weight: 124.8 kg Body Mass Index (BMI) 47.2 Finger Stick Blood Glucose 112 Intake and Output for Last 24 Hours 09/05/19 09/06/19 09/07/19 23:59 23:59 23:59 Intake Total 5242.5 / 5242.5 862.5 / 862.5 Balance 5242.5 / 5242.5 862.5 / 862.5 General: Alert, Cooperative, No apparent distress Lungs: Clear to auscultation, Normal air movement Cardiovascular: Regular rate, Regular Rhythm Abdomen: Soft, Non Tender, Non-Distended Skin: Incision Laboratory Results 09/06/19 16:36: POC Glucose 160 H 09/07/19 05:35: WBC 13.6 H, RBC 5.03, Hgb 13.3, Hct 42.9, MCV 85.3, MCH 26.4 L, MCHC 31.0 L, RDW Std Deviation 54.4 H, RDW Coeff of Sergio 17.8 H, Plt Count 210, MPV 9.9 09/07/19 05:35: Sodium 139, Potassium 4.0, Chloride 104, Carbon Dioxide 29.0, Anion Gap 6, BUN 14, Creatinine 0.72, Estim Creat Clear Calc 72.65, Est GFR (MDRD) Af Amer 107, Est GFR (MDRD) Non-Af 88, BUN/Creatinine Ratio 19.5, Glucose 127 H, Calcium 8.8 Current Medications Acetaminophen (Tylenol) 1,000 mg PO Q8 [facility] Last Admin: 09/07/19 06:12 Dose: 1,000 mg Documented by: Aspirin (Ecotrin) 81 mg PO DAILYCM [facility] Last Admin: 09/07/19 08:19 Dose: 81 mg Documented by: Cholecalciferol (Vitamin D (25mcg)) 5,000 unit PO DAILY@1200 [facility] Doxycycline Monohydrate (Doxycycline) 100 mg PO BID [facility] Last Admin: 09/07/19 08:19 Dose: 100 mg Documented by: Enteral Nutritional Formula (Ensure Surgery) 237 ml PO TIDCM [facility] Last Admin: 09/07/19 08:39 Dose: 237 ml Documented by: Famotidine (Pepcid) 40 mg PO QHS [facility] Last Admin: 09/06/19 21:41 Dose: 40 mg Documented by: Ferrous Sulfate (Ferrous Sulfate) [facility] Last Admin: 09/07/19 08:21 Dose: 650 mg Documented by: Folic Acid (Folic Acid) [facility] Last Admin: 09/07/19 08:19 Dose: 1 mg Documented by: Gabapentin (Neurontin) 1,200 mg PO BID [facility] Last Admin: 09/07/19 08:22 Dose: 1,200 mg Documented by: Gabapentin (Neurontin) 600 mg PO LUNCH [facility] Insulin Human Lispro (Humalog Kwikpen (Bkc)) 1 - 6 unit SC Q4H PRN PRN; Protocol PRN Reason: BG>/= 180, SEE PROTOCOL Levothyroxine Sodium (Synthroid) 175 mcg PO DAILY@0600 [facility] Last Admin: 09/07/19 06:12 Dose: 175 mcg Documented by: Montelukast Sodium (Singulair) 10 mg PO DAILY@1700 [facility] Last Admin: 09/06/19 18:10 Dose: 10 mg Documented by: Morphine Sulfate () 2 - 4 mg IV Q2H PRN PRN PRN Reason: Pain Score 6-10/10 Last Admin: 09/06/19 15:25 Dose: 2 mg Documented by: Ondansetron HCl (Zofran) 4 mg IV Q8H PRN PRN PRN Reason: NAUSEA Oxycodone HCl (Oxyir) 5 - 10 mg PO Q4H PRN PRN PRN Reason: Pain Score 4-10/10 Last Admin: 09/07/19 09:59 Dose: 10 mg Documented by: Pantoprazole Sodium (Protonix) 20 mg PO DAILY [facility] Last Admin: 09/07/19 08:18 Dose: 20 mg Documented by: Pramipexole Dihydrochloride (Mirapex) [facility] Last Admin: 09/07/19 08:20 Dose: 1.5 mg Documented by: Pramipexole Dihydrochloride (Mirapex) 3 mg PO QHS [facility] Last Admin: 09/06/19 21:46 Dose: 3 mg Documented by: Promethazine HCl (Phenergan) 12.5 mg IM Q6H PRN PRN; Protocol PRN Reason: NAUSEA/VOMITING Rivaroxaban (Xarelto) 10 mg PO DAILY@0600 [facility] Last Admin: 09/07/19 06:12 Dose: 10 mg Documented by: Senna/Docusate Sodium (Senokot-S, Aileen-Colace) 2 tablet PO BID [facility] Last Admin: 09/07/19 08:18 Dose: 2 tablet Documented by: Sodium Chloride () 5 - 15 ml IV UD PRN PRN Reason: SALINE FLUSH Sodium Chloride () 10 - 40 ml IV UD PRN PRN Reason: SALINE FLUSH Venlafaxine HCl (Effexor Xr) 75 mg PO DAILY [facility] Last Admin: 09/07/19 08:27 Dose: Not Given Documented by: Venlafaxine HCl (Effexor Xr) 150 mg PO DAILY [facility] Last Admin: 09/07/19 08:28 Dose: Not Given Documented by: Voriconazole (Vfend) 200 mg PO BID [facility] Medical Necessity - Tobacco Use Smoking Status: Former smoker Route of nutrition/ use of supplements: [] Nutritional Intake: [] IV Site: [] Clarke Catheter: [] - Assessment/Plan Antibiotics: [] Assessment/Plan: [] Recurrent R knee PJI, most recently with C. parapsilosis, now taken to OR 09/06/[address] Barton for spacer removal and joint replacement. Surg cx pending, requested samples be held for 2 weeks. On po doxy. Added voriconazole back, plan on at least a few more months of abx given her complicated history (6 weeks more would be the minimum for erum PJI). Will follow
--- NOTE | 2019-09-07 11:20 | CASEMGMT ---
LATESHA ORTIZ Face to Face with patient for initial transition planning/care coordination assessment. RN CM introduced self and role at [facility]. Patient lying in bed, alert and oriented. Patient willing to participate in assessment and is able to answer all questions appropriately. Care providers, pharmacy, and demographics verified. Patient wishes to discharge home and is setup with [facility] for outpatient therapy. Patient states she has no further needs or concerns at this time. CM to follow for discharge planning needs that may arise. PCP: Lin Specialists: Oralia, Ortho; Marley, podiatry; Tk, neurologist Preferred Pharmacy: [facility] Insurance: [place] Prescription Benefit: yes Living Will/HPOA: none LNOK: Living Arrangements: Patient lives with in 1 story home with no steps to enter the home. Patient was independent at home prior to surgery. Transportation: DME/HHC: Patient has raised toilet, cane, walker, grab bars, cpap at home. Patient is scheduled for outpatient therapy at [facility] on Wednesday. Disposition Plan: Patient to discharge home with outpatient therapy, family support, and follow-up plans in place. Queenie HAND, RN, CM
[2019-09-07] MEDS: Gabapentin 600 MG Tablet PO (12:42)
[2019-09-07 14:11] VITALS: BP 126/63; PULSE 86; RESP 18; TEMP 36.8; O2SAT 94
[2019-09-07] MEDS: Montelukast 10 MG Tablet PO (17:22)
[2019-09-07 20:16] VITALS: BP 135/68; PULSE 87; RESP 18; TEMP 36.9; O2SAT 93
[2019-09-07] MEDS: Pramipexole Di-HCl 1 MG Tablet 3 MG PO (20:45)
[2019-09-07] MEDS: Voriconazole 200 MG Tablet PO (20:45)
[2019-09-07] MEDS: Famotidine 20 MG Tablet 40 MG PO (20:46)
[2019-09-08 03:07] VITALS: BP 128/70; PULSE 62; RESP 16; TEMP 36.3; O2SAT 97
[2019-09-08 06:06] LABS: Hematocrit 40.4 % (37-47); Hemoglobin 12.1 g/dL (12.0-15.0); Mean Corpuscular Hgb 26.1 pg (27.0-32.0); Mean Corpuscular Volume 87.1 fL (81-99); Mean Platelet Vol. 9.7 fl (6.2-12.0); Platelet Count 178 K/mm3 (150-450); RBC Distribution Width CV 18.4 % (11.6-14.6); RBC Distribution Width SD 57.3 fl (35.1-43.9); Red Blood Count 4.64 M/mm3 (4.2-5.4); White Blood Count 8.7 K/mm3 (4.4-11.0)
--- NOTE | 2019-09-08 06:35 | PN.ORTHO_ITS ---
Subjective: The patient was sitting in chair upon examination. Patient denies chest pain, shortness of breath, dizziness, lightheadedness, nausea, vomiting or calf pain. Pain is controlled on medications. No adverse events overnight. [] Objective: Vital signs stable. Patient is afebrile. Patient is able to plantar flex and dorsiflex actively. Sensation is intact to light touch to saphenous, sural, superficial and deep peroneal and tibial nerve distributions. Dressing with a small amount of light serosanguineous drainage coming from the most distal suture. The amount is smaller than yesterday. It does appear to have slowed down. Negative Homans bilaterally. Negative signs and symptoms of DVT. - Physical Exam Vitals/I&O's: Vital Signs Temp Pulse Resp BP Pulse Ox 97.4 F L 62 16 128/70 H 97 09/08/19 03:07 09/08/19 03:07 09/08/19 03:07 09/08/19 03:07 09/08/19 03:07 Oxygen Flow Rate (L/min) 2 Oxygen Delivery Method CPAP Weight: 124.8 kg Body Mass Index (BMI) 47.2 Finger Stick Blood Glucose 112 Intake and Output for Last 24 Hours 09/06/19 09/07/19 09/08/19 23:59 23:59 23:59 Intake Total 5242.5 / 5242.5 3162.5 / 3162.5 Balance 5242.5 / 5242.5 3162.5 / 3162.5 General: Alert, Oriented x3, Cooperative Lungs: Normal air movement Extremities: Capillary Refill Less than 3 Seconds, No Calf Tenderness, Edema - Postoperative swelling appreciated. Skin: Incision Musculoskeletal: No Tenderness to Palpation of Joints or Extremities Neurological: Cranial nerves II-XII grossly intact Psych/Mental Status: Normal Affect, Appropriate Microbiology Past 72 Hours 09/06/19 10:29 Tissue - Knee Gram Stain - Final 09/06/19 10:27 Tissue - Knee Gram Stain - Final 09/06/19 10:27 Tissue - Knee Wound Culture - Preliminary No growth-Final to follow 09/06/19 10:24 Tissue - Knee Gram Stain - Final 09/06/19 10:24 Tissue - Knee Wound Culture - Preliminary No growth-Final to follow Laboratory Results 09/08/19 05:22: WBC 8.7, RBC 4.64, Hgb 12.1, Hct 40.4, MCV 87.1, MCH 26.1 L, MCHC 30.0 L, RDW Std Deviation 57.3 H, RDW Coeff of Sergio 18.4 H, Plt Count 178, MPV 9.7 Current Medications Acetaminophen (Tylenol) 1,000 mg PO Q8 [facility] Last Admin: 09/07/19 20:44 Dose: 1,000 mg Documented by: [facility] (Ecotrin) [facility] Last Admin: 09/07/19 08:19 Dose: 81 mg Documented by: Cholecalciferol (Vitamin D (25mcg)) 5,000 unit PO DAILY@1200 [facility] Last Admin: 09/07/19 12:42 Dose: 5,000 unit Documented by: Doxycycline Monohydrate (Doxycycline) 100 mg PO BID [facility] Last Admin: 09/07/19 20:45 Dose: 100 mg Documented by: Famotidine (Pepcid) 40 mg PO QHS [facility] Last Admin: 09/07/19 20:46 Dose: 40 mg Documented by: Ferrous Sulfate (Ferrous Sulfate) [facility] Last Admin: 09/07/19 08:21 Dose: 650 mg Documented by: Folic Acid (Folic Acid) [facility] Last Admin: 09/07/19 08:19 Dose: 1 mg Documented by: Gabapentin (Neurontin) 1,200 mg PO BID [facility] Last Admin: 09/07/19 20:46 Dose: 1,200 mg Documented by: Gabapentin (Neurontin) 600 mg PO LUNCH [facility] Last Admin: 09/07/19 12:42 Dose: 600 mg Documented by: Insulin Human Lispro (Humalog Julien (Bkc)) 1 - 6 unit SC Q4H PRN PRN; Protocol PRN Reason: BG>/= 180, SEE PROTOCOL Levothyroxine Sodium (Synthroid) 175 mcg PO DAILY@0600 [facility] Last Admin: 09/07/19 06:12 Dose: 175 mcg Documented by: Montelukast Sodium (Singulair) 10 mg PO DAILY@1700 [facility] Last Admin: 09/07/19 17:22 Dose: 10 mg Documented by: Morphine Sulfate () 2 - 4 mg IV Q2H PRN PRN PRN Reason: Pain Score 6-10/10 Last Admin: 09/06/19 15:25 Dose: 2 mg Documented by: Ondansetron HCl (Zofran) 4 mg IV Q8H PRN PRN PRN Reason: NAUSEA Oxycodone HCl (Oxyir) 5 - 10 mg PO Q4H PRN PRN PRN Reason: Pain Score 4-10/10 Last Admin: 09/07/19 22:44 Dose: 5 mg Documented by: Pantoprazole Sodium (Protonix) 20 mg PO DAILY [facility] Last Admin: 09/07/19 08:18 Dose: 20 mg Documented by: Pramipexole Dihydrochloride (Mirapex) [facility] Last Admin: 09/07/19 08:20 Dose: 1.5 mg Documented by: Pramipexole Dihydrochloride (Mirapex) 3 mg PO QHS [facility] Last Admin: 09/07/19 20:45 Dose: 3 mg Documented by: Promethazine HCl (Phenergan) 12.5 mg IM Q6H PRN PRN; Protocol PRN Reason: NAUSEA/VOMITING Rivaroxaban (Xarelto) 10 mg PO DAILY@0600 [facility] Last Admin: 09/07/19 06:12 Dose: 10 mg Documented by: Senna/Docusate Sodium (Senokot-S, Aileen-Colace) 2 tablet PO BID [facility] Last Admin: 09/07/19 20:46 Dose: 2 tablet Documented by: Sodium Chloride () 5 - 15 ml IV UD PRN PRN Reason: SALINE FLUSH Sodium Chloride () 10 - 40 ml IV UD PRN PRN Reason: SALINE FLUSH Venlafaxine HCl (Effexor Xr) 75 mg PO DAILY [facility] Last Admin: 09/07/19 08:27 Dose: Not Given Documented by: Venlafaxine HCl (Effexor Xr) 150 mg PO DAILY [facility] Last Admin: 09/07/19 08:28 Dose: Not Given Documented by: Voriconazole (Vfend) 200 mg PO BID [facility] Last Admin: 09/07/19 20:45 Dose: 200 mg Documented by: Medical Necessity - Tobacco Use Smoking Status: Former smoker Assessment/Plan All Active Problems Infection of right knee (Acute) Septic joint (Acute) 1. Status post right knee antibiotic spacer removal with conversion to total knee arthroplasty post operative day #2. 2. Continue pain medications: Tylenol and OxyIR 3. DVT prophylaxis: Xarelto and thigh-high BLANCA hose 4. PT/OT: Weightbearing as tolerated 5. H & H: 12.1/40.4, asymptomatic 6. WBCs: 8.7, afebrile. 7. Encouraged incentive spirometry. 8. Continue postoperative medical management per medicine. 9: Postoperative drainage: Dressing with a small amount of light serosanguineous drainage at the most distal incision. Has decreased since she was seen yesterday for rounds. We will continue with a compressive dry dressing and monitor throughout the day. Patient will do dry dressing changes for 2 more days. Then she will apply a Mepilex for 5 days. She may shower once the Mepilex is applied. 9. Disposition: The plan will be for discharge home today. Prescriptions will be sent to [facility]. Patient will follow-up per postop instructions. The patient will be getting outpatient physical therapy. I have reviewed the [place] Automated Rx Reporting System (OARRS) report for this patient for refill pattern and other prescriber involvement as part of the appropriate surveillance for the provision of acute and chronic controlled medications. The report was requested and reviewed on the date of this entry and was considered in the prescribing process.
[2019-09-08] MEDS: Acetaminophen 500 MG Tablet 1000 MG PO ×2 (06:39→13:56)
[2019-09-08] MEDS: Rivaroxaban 10 MG Tablet PO (06:40)
[2019-09-08] MEDS: Levothyroxine 175 MCG Tablet PO (06:40)
--- NOTE | 2019-09-08 07:03 | PCM.DC.TKR ---
Discharge Diet: No Restrictions Discharge Activity: May Not Drive Ice area for (Minutes): 20 - every hour while awake. Weight Bearing Status: Weight bearing as tolerated Elevate: Operative Extremity Additional Activity Instructions:: Wear elastic stockings for 2 weeks after your surgery. Call your doctor if your incision/area has: Continuous Slow Oozing, Sudden Increased Bleeding, Increased Pain/ Swelling, Increased Redness, Foul Smelling Discharge Call your doctor if you observe: Fever of 101 or Higher, Coldness, Increased Pain, Numbness or Tingling, Change in Color, Calf discomfort, Uncontrolled pain Additional Dressing/Incision Instructions:: Dry dressing changes for 2 more days until drainage has discontinued. A Mepilex may then be applied. Patient may shower once the Mepilex is applied. Keep the Mepilex on for 5 days and then it may be removed. Allergies/Adverse Reactions: Allergies hydrocodone bitartrate [From Lortab] Allergy (Intermediate, Verified 09/06/19 07:31) Other lips swell, ataxia etodolac Allergy (Verified 09/06/19 07:31) Unknown misoprostol Allergy (Verified 09/06/19 07:31) Unknown celecoxib Adverse Reaction (Intermediate, Verified 09/06/19 07:31) Other heart palpitations diclofenac [Diclofenac] Adverse Reaction (Mild, Verified 09/06/19 07:31) Abd cramps/diarrhea ketorolac tromethamine [From Toradol] Adverse Reaction (Mild, Verified 09/06/19 07:31) Other balance issues metoclopramide HCl [From Reglan] Adverse Reaction (Mild, Verified 09/06/19 07:31) Other worsens restless leg atorvastatin [From Lipitor] Adverse Reaction (Verified 09/06/19 07:31) Other FACE SPASMS clindamycin Adverse Reaction (Verified 09/06/19 07:31) Mucosal lesions Medications to take at Discharge RX: Levothyroxine [Synthroid] 175 mcg PO DAILY 09/01/13 RX: Omeprazole [Prilosec] 20 mg PO DAILY 12/13/16 RX: Cholecalciferol (Vitamin D3) [Vitamin D3] 5,000 unit PO DAILY@1200 01/25/17 RX: [place]-3 Fatty Acids/Fish Oil [Fish Oil 1,000 mg Capsule] 2,000 mg PO DAILY 03/21/18 RX: Gabapentin 1,200 mg PO BID 08/01/18 RX: Gabapentin [Neurontin] 600 mg PO .LUNCHTIME 08/01/18 RX: Lisinopril [Zestril] 10 mg PO DAILY 08/01/18 RX: Pramipexole Di-HCl [Pramipexole Dihydrochloride] 1.5 tab PO DAILY 08/01/18 RX: Pramipexole Di-HCl [Pramipexole Dihydrochloride] 3 mg PO QHS 08/01/18 RX: Venlafaxine HCl [Effexor Xr] 1 tab PO DAILY 08/01/18 RX: Venlafaxine HCl [Venlafaxine HCl ER] 1 tab PO DAILY 08/01/18 RX: Aspirin [Aspir-Low] 81 mg PO DAILY 05/02/19 RX: Famotidine [Pepcid] 40 mg PO QHS 05/02/19 RX: traMADol [Ultram] 50 - 100 mg PO Q6H PRN PRN 05/02/19 RX: Ferrous Sulfate 130 mg PO DAILY 08/30/19 RX: Folic Acid 1 mg PO DAILY 08/30/19 RX: Acetaminophen [Tylenol] 1,000 mg PO Q8 30 Days #100 tab 09/08/19 RX: Doxycycline 100 mg PO BID 6 Days #12 cap 09/08/19 RX: Montelukast [Singulair] 10 mg PO DAILY@1700 #90 tab 09/08/19 RX: Oxycodone [Oxyir] 5 - 10 mg PO Q4H PRN PRN 7 Days #56 tab 09/08/19 RX: Rivaroxaban [Xarelto] 10 mg PO DAILY@0600 7 Days #14 tab 09/08/19 RX: Senna/Docusate Sodium [Senokot-S] 2 tab PO BID 5 Days #10 tab 09/08/19 RX: Voriconazole [Vfend] 200 mg PO BID 14 Days #28 tab 09/08/19 The following prescriptions were given: RX: Doxycycline 100 mg PO BID 6 Days #12 cap Transmission Status: Sent to [id number] RX: Oxycodone [Oxyir] 5 - 10 mg PO Q4H PRN PRN 7 Days #56 tab PRN Reason: Pain Score 4-10/10 Transmission Status: Received by [id number] RX: Senna/Docusate Sodium [Senokot-S] 2 tab PO BID 5 Days #10 tab Transmission Status: Sent to [id number] RX: Montelukast [Singulair] 10 mg PO DAILY@1700 #90 tab Transmission Status: Sent to [id number] RX: Acetaminophen [Tylenol] 1,000 mg PO Q8 30 Days #100 tab Transmission Status: Sent to [id number] RX: Voriconazole [Vfend] 200 mg PO BID 14 Days #28 tab Transmission Status: Sent to [id number] RX: Rivaroxaban [Xarelto] 10 mg PO DAILY@0600 7 Days #14 tab Transmission Status: Sent to [facility][id number] Orders to be completed after discharge: CORONAVIRUS 19, LIZ Time Frame: 09/05/19, Facility: [facility], Location: Laboratory Primary Care Physician: Gustavo Ceballos MD [Primary Care Provider] - Test Results: Test results from this visit will be discussed in further detail at your follow-up appointment, if applicable. Please Follow Up With: Ray at [facility] When: September 21, 2019 at 4:00 pm Please Follow Up With: Physical therapy at [facility] When: September 11, 2019 at 4:00 pm
[2019-09-08] MEDS: oxyCODONE 5 MG Tablet PO ×2 (07:42→13:57)
[2019-09-08] MEDS: Pramipexole Di-HCl 0.5 MG Tablet 1.5 MG PO (10:20)
[2019-09-08] MEDS: Aspirin E.C. 81 MG Tablet PO (10:20)
[2019-09-08] MEDS: Folic Acid 1 MG Tablet PO (10:20)
[2019-09-08] MEDS: Venlafaxine XR 150 MG Capsule PO (10:21)
[2019-09-08] MEDS: Gabapentin 600 MG Tablet 1200 MG PO (10:22)
[2019-09-08] MEDS: Voriconazole 200 MG Tablet PO (10:23)
[2019-09-08] MEDS: Senna/Docusate Sodium 1 Tablet 2 TABLET PO (10:23)
[2019-09-08] MEDS: Venlafaxine XR 75 MG Capsule PO (10:23)
[2019-09-08] MEDS: Pantoprazole Sodium 20 MG Tablet PO (10:23)
[2019-09-08] MEDS: Doxycycline 100 MG CAPSULE PO (10:26)
[2019-09-08 10:30] VITALS: BP 135/70; PULSE 86; RESP 16; TEMP 36.7; O2SAT 96
--- NOTE | 2019-09-08 11:37 | PN_ITS ---
Reason for Visit: Follow-up for right TKR. Small amount of bleeding yesterday which is controlled. Objective: Patient had serosanguineous drainage from distal one third of surgical wound. Compressive dressing was applied yesterday and is dry. Patient was seen and evaluated by orthopedic team today found light serosanguineous drainage which is much less than yesterday. Plan for discharge today. General: Alert, Oriented x3, Cooperative HEENT: Atraumatic, PERRLA, EOMI, Normocephalic Neck: Supple, No JVD, Negative Carotid Bruits Lungs: Clear to auscultation, No rhonchi, No wheeze, No rales, Diminished Cardiovascular: Regular rate, Regular Rhythm, Normal S1, Normal S2, No murmurs Abdomen: Bowel Sounds Present, Soft, Non Tender, Non-Distended Extremities: No edema, Capillary Refill Less than 3 Seconds Skin: surgical wound at right knee. Musculoskeletal: Arthritic Changes, small serosanguineous drainage at surgical dressing right TKR Neurological: Cranial nerves II-XII grossly intact, Deep Tendon Reflexes 2+/4 and Symmetrical, Neuro grossly intact Psych/Mental Status: Normal Affect, Appropriate Vitals/I&O's: Vital Signs Temp Pulse Resp BP Pulse Ox 98.1 F 86 16 135/70 H 96 09/08/19 10:30 09/08/19 10:30 09/08/19 10:30 09/08/19 10:30 09/08/19 10:30 Oxygen Flow Rate (L/min) 2 Oxygen Delivery Method Room Air Weight: 275 lb 2.19 oz Body Mass Index (BMI) 47.2 Finger Stick Blood Glucose 112 Intake and Output for Last 24 Hours 09/06/19 09/07/19 09/08/19 23:59 23:59 23:59 Intake Total 5242.5 / 5242.5 3162.5 / 3162.5 300 / 300 Balance 5242.5 / 5242.5 3162.5 / 3162.5 300 / 300 Microbiology Past 72 Hours 09/06/19 10:24 Tissue - Knee Gram Stain - Final 09/06/19 10:24 Tissue - Knee Wound Culture - Preliminary No growth-Final to follow 09/06/19 10:24 Tissue - Knee Anaerobic Culture - Preliminary No growth in 48 hours. 09/06/19 10:29 Tissue - Knee Gram Stain - Final 09/06/19 10:29 Tissue - Knee Anaerobic Culture - Preliminary No growth in 48 hours. 09/06/19 10:27 Tissue - Knee Gram Stain - Final 09/06/19 10:27 Tissue - Knee Wound Culture - Preliminary No growth-Final to follow 09/06/19 10:27 Tissue - Knee Anaerobic Culture - Preliminary No growth in 48 hours. Laboratory Results 09/08/19 05:22: WBC 8.7, RBC 4.64, Hgb 12.1, Hct 40.4, MCV 87.1, MCH 26.1 L, MCHC 30.0 L, RDW Std Deviation 57.3 H, RDW Coeff of Sergio 18.4 H, Plt Count 178, MPV 9.7 Current Medications Acetaminophen (Tylenol) 1,000 mg PO Q8 [facility] Last Admin: 09/08/19 06:39 Dose: 1,000 mg Documented by: [facility] (Ecot[facility]) [facility] Last Admin: 09/08/19 10:20 Dose: 81 mg Documented by: Cholecalciferol (Vitamin D (25mcg)) 5,000 unit PO DAILY@1200 [facility] Last Admin: 09/07/19 12:42 Dose: 5,000 unit Documented by: Doxycycline Monohydrate (Doxycycline) 100 mg PO BID [facility] Last Admin: 09/08/19 10:26 Dose: 100 mg Documented by: Famotidine (Pepcid) 40 mg PO QHS [facility] Last Admin: 09/07/19 20:46 Dose: 40 mg Documented by: Ferrous Sulfate (Ferrous Sulfate) [facility] Last Admin: 09/07/19 08:21 Dose: 650 mg Documented by: Folic Acid (Folic Acid) [facility] Last Admin: 09/08/19 10:20 Dose: 1 mg Documented by: Gabapentin (Neurontin) 1,200 mg PO BID [facility] Last Admin: 09/08/19 10:22 Dose: 1,200 mg Documented by: Gabapentin (Neurontin) 600 mg PO LUNCH [facility] Last Admin: 09/07/19 12:42 Dose: 600 mg Documented by: Insulin Human Lispro (Humalog Kwikpen (Bkc)) 1 - 6 unit SC Q4H PRN PRN; Protocol PRN Reason: BG>/= 180, SEE PROTOCOL Levothyroxine Sodium (Synthroid) 175 mcg PO DAILY@0600 [facility] Last Admin: 09/08/19 06:40 Dose: 175 mcg Documented by: Montelukast Sodium (Singulair) 10 mg PO DAILY@1700 [facility] Last Admin: 09/07/19 17:22 Dose: 10 mg Documented by: Morphine Sulfate () 2 - 4 mg IV Q2H PRN PRN PRN Reason: Pain Score 6-10/10 Last Admin: 09/06/19 15:25 Dose: 2 mg Documented by: Ondansetron HCl (Zofran) 4 mg IV Q8H PRN PRN PRN Reason: NAUSEA Oxycodone HCl (Oxyir) 5 - 10 mg PO Q4H PRN PRN PRN Reason: Pain Score 4-10/10 Last Admin: 09/08/19 07:42 Dose: 10 mg Documented by: Pantoprazole Sodium (Protonix) 20 mg PO DAILY [facility] Last Admin: 09/08/19 10:23 Dose: 20 mg Documented by: Pramipexole Dihydrochloride (Mirapex) [facility] Last Admin: 09/08/19 10:20 Dose: 1.5 mg Documented by: Pramipexole Dihydrochloride (Mirapex) 3 mg PO QHS [facility] Last Admin: 09/07/19 20:45 Dose: 3 mg Documented by: Promethazine HCl (Phenergan) 12.5 mg IM Q6H PRN PRN; Protocol PRN Reason: NAUSEA/VOMITING Rivaroxaban (Xarelto) 10 mg PO DAILY@0600 [facility] Last Admin: 09/08/19 06:40 Dose: 10 mg Documented by: Senna/Docusate Sodium (Senokot-S, Aileen-Colace) 2 tablet PO BID [facility] Last Admin: 09/08/19 10:23 Dose: 2 tablet Documented by: Sodium Chloride () 5 - 15 ml IV UD PRN PRN Reason: SALINE FLUSH Sodium Chloride () 10 - 40 ml IV UD PRN PRN Reason: SALINE FLUSH Venlafaxine HCl (Effexor Xr) 75 mg PO DAILY [facility] Last Admin: 09/08/19 10:23 Dose: 75 mg Documented by: Venlafaxine HCl (Effexor Xr) 150 mg PO DAILY [facility] Last Admin: 09/08/19 10:21 Dose: 150 mg Documented by: Voriconazole (Vfend) 200 mg PO BID [facility] Last Admin: 09/08/19 10:23 Dose: 200 mg Documented by: STROKE Vital Signs/Narrative: Vital Signs Temp Pulse Resp BP Pulse Ox 09/08/19 10:30 98.1 F 86 16 135/70 H 96 Medical Necessity - Tobacco Use Smoking Status: Former smoker Assessment/Plan All Active Problems Infection of right knee (Acute) Septic joint (Acute) 59-year-old female is being admitted to orthopedic service for elective revision of right TKR with removal of antibiotic spacer. 1. 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 Patient is being evaluated by PT and OT. -Continue with Xarelto for DVT prophylaxis. Patient had some serosanguineous drainage on 09/07/2019 which is controlled now. Plan for discharge home today. 2. HTN/morbid obesity: -She had a stress test in July 2018 which was unremarkable; for chest pain. Continue aspirin. BMP shows creatinine on baseline therefore lisinopril resumed. -Weight loss counseling done. Blood pressure is controlled 3. Iron deficiency anemia: Hemoglobin is stable H&H 43. -Continue with iron supplementation 4. Anxiety/depression -Stable -Continue with Effexor 5. GERD -Stable -Recommend only Pepcid. Follow with PCP 6. Hypothyroidism -Stable -Continue Synthroid 7. RA -She does see a rn field as an outpatient and used to be on Plaquenil as well as steroid injections into her ankle until her knee infection which when she stopped both medications around January of last year. Follow-up rn field. DVT: Xarelto Patient is being discharged home with home health aide. Inpatient E&M: 71733 Subs Hosp L2
[2019-09-08] MEDS: Gabapentin 600 MG Tablet PO (12:27)
--- NOTE | 2019-09-08 14:11 | PN.ID_ITS ---
Subjective: Feeling ok, d/c home today. - Physical Exam Vitals/I&O's: Vital Signs Temp Pulse Resp BP Pulse Ox 98.1 F 86 16 135/70 H 96 09/08/19 10:30 09/08/19 10:30 09/08/19 10:30 09/08/19 10:30 09/08/19 10:30 Oxygen Flow Rate (L/min) 2 Oxygen Delivery Method Room Air Weight: 124.8 kg Body Mass Index (BMI) 47.2 Finger Stick Blood Glucose 112 Intake and Output for Last 24 Hours 09/06/19 09/07/19 09/08/19 23:59 23:59 23:59 Intake Total 5242.5 / 5242.5 3162.5 / 3162.5 300 / 300 Balance 5242.5 / 5242.5 3162.5 / 3162.5 300 / 300 General: Alert, Cooperative, No apparent distress Lungs: Normal air movement Skin: Incision - R knee wrapped Microbiology Past 72 Hours 09/06/19 10:24 Tissue - Knee Gram Stain - Final 09/06/19 10:24 Tissue - Knee Wound Culture - Preliminary No growth-Final to follow 09/06/19 10:24 Tissue - Knee Anaerobic Culture - Preliminary No growth in 48 hours. 09/06/19 10:29 Tissue - Knee Gram Stain - Final 09/06/19 10:29 Tissue - Knee Anaerobic Culture - Preliminary No growth in 48 hours. 09/06/19 10:27 Tissue - Knee Gram Stain - Final 09/06/19 10:27 Tissue - Knee Wound Culture - Preliminary No growth-Final to follow 09/06/19 10:27 Tissue - Knee Anaerobic Culture - Preliminary No growth in 48 hours. Laboratory Results 09/08/19 05:22: WBC 8.7, RBC 4.64, Hgb 12.1, Hct 40.4, MCV 87.1, MCH 26.1 L, MCHC 30.0 L, RDW Std Deviation 57.3 H, RDW Coeff of Sergio 18.4 H, Plt Count 178, MPV 9.7 Current Medications Acetaminophen (Tylenol) 1,000 mg PO Q8 [facility] Last Admin: 09/08/19 13:56 Dose: 1,000 mg Documented by: Aspirin (Ecotrin) 81 mg PO DAILYCM [facility] Last Admin: 06/05/20 10:20 Dose: 81 mg Documented by: Cholecalciferol (Vitamin D (25mcg)) 5,000 unit PO DAILY@1200 [facility] Last Admin: 09/08/19 12:27 Dose: 5,000 unit Documented by: Doxycycline Monohydrate (Doxycycline) 100 mg PO BID [facility] Last Admin: 09/08/19 10:26 Dose: 100 mg Documented by: Famotidine (Pepcid) 40 mg PO QHS [facility] Last Admin: 09/07/19 20:46 Dose: 40 mg Documented by: Ferrous Sulfate ([facility]ous Sulfate) [facility] Admin: 09/07/19 08:21 Dose: 650 mg Documented by: Folic Acid (Folic Acid) [facility] Last Admin: 09/08/19 10:20 Dose: 1 mg Documented by: Gabapentin (Neurontin) 1,200 mg PO BID [facility] Last Admin: 09/08/19 10:22 Dose: 1,200 mg Documented by: Gabapentin (Neurontin) 600 mg PO LUNCH [facility] Last Admin: 09/08/19 12:27 Dose: 600 mg Documented by: Insulin Human Lispro (Humalog Kwikpen (Bkc)) 1 - 6 unit SC Q4H PRN PRN; Protocol PRN Reason: BG>/= 180, SEE PROTOCOL Levothyroxine Sodium (Synthroid) 175 mcg PO DAILY@0600 [facility] Last Admin: 09/08/19 06:40 Dose: 175 mcg Documented by: Montelukast Sodium (Singulair) 10 mg PO DAILY@1700 [facility] Last Admin: 09/07/19 17:22 Dose: 10 mg Documented by: Morphine Sulfate () 2 - 4 mg IV Q2H PRN PRN PRN Reason: Pain Score 6-10/10 Last Admin: 09/06/19 15:25 Dose: 2 mg Documented by: Ondansetron HCl (Zofran) 4 mg IV Q8H PRN PRN PRN Reason: NAUSEA Oxycodone HCl (Oxyir) 5 - 10 mg PO Q4H PRN PRN PRN Reason: Pain Score 4-10/10 Last Admin: 09/08/19 13:57 Dose: 5 mg Documented by: Pantoprazole Sodium (Protonix) 20 mg PO DAILY [facility] Last Admin: 09/08/19 10:23 Dose: 20 mg Documented by: Pramipexole Dihydrochloride (Mirapex) 1.5 mg PO DAILYCM [facility] Last Admin: 09/08/19 10:20 Dose: 1.5 mg Documented by: Pramipexole Dihydrochloride (Mirapex) 3 mg PO QHS [facility] Last Admin: 09/07/19 20:45 Dose: 3 mg Documented by: Promethazine HCl (Phenergan) 12.5 mg IM Q6H PRN PRN; Protocol PRN Reason: NAUSEA/VOMITING Rivaroxaban (Xarelto) 10 mg PO DAILY@0600 [facility] Last Admin: 09/08/19 06:40 Dose: 10 mg Documented by: Senna/Docusate Sodium (Senokot-S, Aileen-Colace) 2 tablet PO BID [facility] Last Admin: 09/08/19 10:23 Dose: 2 tablet Documented by: Sodium Chloride () 5 - 15 ml IV UD PRN PRN Reason: SALINE FLUSH Sodium Chloride () 10 - 40 ml IV UD PRN PRN Reason: SALINE FLUSH Venlafaxine HCl (Effexor Xr) 75 mg PO DAILY [facility] Last Admin: 09/08/19 10:23 Dose: 75 mg Documented by: Venlafaxine HCl (Effexor Xr) 150 mg PO DAILY [facility] Last Admin: 09/08/19 10:21 Dose: 150 mg Documented by: Voriconazole (Vfend) 200 mg PO BID [facility] Last Admin: 09/08/19 10:23 Dose: 200 mg Documented by: Medical Necessity - Tobacco Use Smoking Status: Former smoker Route of nutrition/ use of supplements: [] Nutritional Intake: [] IV Site: [] Clarke Catheter: [] - Assessment/Plan Antibiotics: [] Assessment/Plan: [] Recurrent R knee PJI, most recently with C. parapsilosis, now taken to [place] 09/06/[address] Barton for spacer removal and joint replacement. Surg cx pending, requested samples be held for 2 weeks. On po doxy. Added voriconazole back, plan on at least a few more months of abx given her complicated history (6 weeks more would be the minimum for erum PJI). She understands she is to remain on vori. Will follow, ID followup in 2 weeks
== END 2019-09-08 14:50 | disposition home or self-care (01) | DRG 467 ==
LOC: ACINP 07:08 → MS3 09-07 07:03
PROVIDERS: Anesthesiology; Admitting Provider Specialist; PCP Family Medicine; Visit Provider Specialist
PROC: 0SPC0JZ Removal of Synthetic Substitute from Right Knee Joint, Open Approach (ICD-10-PCS; principal; 2019-09-06 08:50)
DX: T84.53XA Infection and inflammatory reaction due to internal right knee prosthesis, initial encounter (principal); Z68.42 Body mass index [BMI] 45.0-49.9, adult; Y83.1 Surgical operation with implant of artificial internal device as the cause of abnormal reaction of the patient, or of later complication, without mention of misadventure at the time of the procedure; Z86.718 Personal history of other venous thrombosis and embolism; J44.9 Chronic obstructive pulmonary disease, unspecified; E03.9 Hypothyroidism, unspecified; Z87.891 Personal history of nicotine dependence; Z87.442 Personal history of urinary calculi; Z79.82 Long term (current) use of aspirin; Z79.891 Long term (current) use of opiate analgesic; Z79.899 Other long term (current) drug therapy; I10 Essential (primary) hypertension; G25.81 Restless legs syndrome; K21.9 Gastro-esophageal reflux disease without esophagitis; M06.9 Rheumatoid arthritis, unspecified; E66.01 Morbid (severe) obesity due to excess calories; D50.9 Iron deficiency anemia, unspecified; F32.9 Major depressive disorder, single episode, unspecified; F41.9 Anxiety disorder, unspecified; G47.33 Obstructive sleep apnea (adult) (pediatric)
CPT/HCPCS: 36415; 73560; 80048; 82962; 83036; 84443; 85027; 87015; 87070; 87075; 87081; 87102; 87116; 87205; 87206; 87635; 94762; 97110; 97162; 97166; 97530; 97535; 99251; C1776; G2023; J7120; A4216; G0463; J2405; U0003

== ENCOUNTER → 2019-10-18 | Outpatient (CLI) | payer BC, SELFPAY ==
[2019-09-06 14:41] VITALS: BMI 47.2
[2019-10-18 07:34] LABS: Erythrocyte Sedimentation Rate 39 mm/hr (0-30)
[2019-10-18 07:37] LABS: Absolute Lymphocyte Count 1.76 X10^3/uL (0.83-4.51); Absolute Neutrophil Count 4.6 X10^3/uL (2.0-7.7); Basophil# 0.07 X10^3/uL; Eosinophil# 0.27 X10^3/uL; Eosinophils% 3.7 % (0-5); Hematocrit 45.8 % (37-47); Hemoglobin 14.4 g/dL (12.0-15.0); Lymphocyte # 1.76 X10^3/ul (4.0); Lymphocyte % 24.3 % (19-41); Mean Corp Hgb Conc 31.4 g/dL (32-36); Mean Corpuscular Hgb 26.6 pg (27.0-32.0); Mean Corpuscular Volume 84.7 fL (81-99); Mean Platelet Vol. 9.6 fl (6.2-12.0); Monocyte# 0.55 X10^3/uL; Monocyte% 7.6 % (0-10); NRBC Flagged by Analyzer 0 % (0-5); Neutrophil # 4.56 X10^3/uL (2.7-7.7); Platelet Count 284 K/mm3 (150-450); RBC Distribution Width CV 15.9 % (11.6-14.6); RBC Distribution Width SD 48.4 fl (35.1-43.9); Red Blood Count 5.41 M/mm3 (4.2-5.4); White Blood Count 7.2 K/mm3 (4.4-11.0)
== END | disposition home or self-care (01) ==
LOC: LAB 07:01
PROVIDERS: PCP Family Medicine; Referring Provider Specialist; Visit Provider Specialist
DX: T84.53XD Infection and inflammatory reaction due to internal right knee prosthesis, subsequent encounter (principal)
CPT/HCPCS: 36415; 85025; 85652; 86140

== ENCOUNTER → 2019-11-22 | Outpatient (CLI) | payer BC, SELFPAY ==
[2019-09-06 14:41] VITALS: BMI 47.2
[2019-11-20 08:26] VITALS: BMI 44.6
--- NOTE | 2019-11-22 07:02 | BI_ITS ---
MAMMOGRAPHY - BILATERAL SCREENING 3-D TOMOSYNTHESIS REASON FOR EXAM: Female, 59 years old. Routine screening PERTINENT HISTORY: BILAT SCREENING - NO FAM HX - NO PREV SURG''S - LT MOLES AND SKIN TAGS MARKED. TECHNIQUE: 2-D mammograms and 3-D Tomosynthesis of the breast (s) were performed. CAD was performed. COMPARISON: 06/22/2018 FINDINGS: The breast composition is almost entirely fat. Scattered benign calcifications are seen. No dense spiculated masses or suspicious microcalcifications are identified. No architectural distortion is identified. There is no skin thickening or retraction. There has been no significant change since the prior study. BI/SCREEN MAMM (CAD) W/WILLIAM BILAT IMPRESSION: No mammographic signs of malignancy. Routine yearly mammograms recommended. ASSESSMENT CATEGORY: BIRADS Category 1: Negative. A letter regarding these results will be sent to the patient by the facility within 30 days. FOLLOW UP RECOMMENDATION: Yearly follow up mammogram recommended. (A) Approximately 10% of breast cancers are not detected by mammography. A normal mammogram should not delay biopsy of a clinically suspicious abnormality. Electronically Signed: José Manuel Freeman MD at 10:34 EDT , Service support ,
== END | disposition home or self-care (01) ==
LOC: OPBI 07:00
PROVIDERS: PCP Family Medicine; Referring Provider Obstetrics & Gynecology; Visit Provider Obstetrics & Gynecology
DX: Z12.31 Encounter for screening mammogram for malignant neoplasm of breast (principal)
CPT/HCPCS: 77063; 77067

== ENCOUNTER 2019-11-27 08:15 | Outpatient (RCR) | payer BC, SELFPAY ==
[2019-09-06 14:41] VITALS: BMI 47.2
[2019-11-20 08:26] VITALS: BP 133/77; PULSE 83; RESP 18; TEMP 36.4; BMI 44.6
--- NOTE | 2019-11-20 16:38 | HP.PCM_ITS ---
History of Present Illness Date of Service: 11/26/19 - WOUND CENTER CONSULT REFERRING PHYSICIAN: Dr. Barton. HEALTH AND SAFETY COORDINATOR: Dr. Lazaro. Chief Complaint: Nonhealing ulcer right inferior knee. History of Wound: 59-year-old female presents with nonhealing ulcer right inferior knee. She has undergone bilateral total knee replacement surgeries in the past. Her right total knee replacement procedure was performed in 2011. She developed a right TKA infection and went to surgery on 01/26/17 where she underwent irrigation debridement right knee with complete synovectomy and tibial component revision. She has been on antibiotics. She has had multiple procedures on her right knee. She underwent right knee irrigation debridement with component revision/polyethylene exchange and right knee superficial irrigation debridement of incisional ulcerations/sinus tract ?2, 1 cm x 1 cm each on 03/05/17. This was followed by removal of total knee replacement placement articulating antibiotic spacer and placement of nonbiodegradable antibiotic delivery system on 01/28/19. On 05/19/19 she underwent removal of articulating antibiotic spacer and intramedullary antibiotic dowel rods with placement of new articulating antibiotic spacer and intramedullary antibiotic dowel rods. Her last procedure was on 09/06/19 where she underwent removal articulating antibiotic spacer with revision right total knee replacement and removal nonbiodegradable antibiotic delivery systems. After the last surgery, she was placed on Doxycycline and Voriconazole. Today she denies fever. Her appetite is good. Past Medical History Past Medical History: Chronic Problems Former smoker (Chronic) History of right knee joint replacement (Chronic) Infection and inflammatory reaction due to internal right knee prosthesis, sequela (Chronic) Nonhealing ulcer of right lower extremity with fat layer exposed (Chronic) Nonhealing ulcer right inferior knee by tibial tubercle History of DVT (deep vein thrombosis) (Chronic) Septic arthritis of knee, right (Chronic) Hx of total knee replacement (Chronic) right Restless leg (Chronic) RENNY (obstructive sleep apnea) (Chronic) Hypothyroidism (Chronic) Diverticulosis of colon without diverticulitis (Chronic) Depression (Chronic) Postphlebitic syndrome with inflammation (Chronic) Lumbar disc disease (Chronic) History of Graves' disease (Chronic) Diabetes mellitus (Chronic) Renal insufficiency (Chronic) Presence of IVC filter (Chronic) Obesity (Chronic) Edema leg (Chronic) Leg swelling (Chronic) DVT of lower extremity (deep venous thrombosis) (Chronic) Surgical History: appendectomy, cholecystectomy, total knee arthroplasty - 2012 on the right and 2014 on the left., tonsillectomy, - - BL thumb surgery. bilateral total knee replacement surgery, 2011 on the right and 2014 on the left. cholecystectomy. incisional hernia repair. Lumbar disc surgery November 2016. endothermal ablation of superficial veins in the left lower extremity. IVC filter. The patient is a Ab0. Left total knee replacement arthroplasty utilizing [place] [employer] size 5 cemented - 06/04/14. Irrigation debridement right knee with complete synovectomy and tibial component revision - 01/26/17. 1. Right knee irrigation debridement 1 component revision/polyethylene exchange. 2. Right knee superficial irrigation debridement of incisional ulcerations/sinus tract ?2, 1 cm x 1 cm each - 03/05/17. edure Performed:: Removal of total knee replacement placement articulating antibiotic spacer. Placement of nonbiodegradable antibiotic delivery system - 01/28/19. Removal of articulating antibiotic spacer and intr amedullary antibiotic dowel rods with placement of new articulating antibiotic spacer and intramedullary antibiotic dowel rods - 05/19/19. Procedure Performed:: Removal articulating antibiotic spacer, revision right total knee replacement. Removal nonbiodegradable antibiotic delivery systems - 09/06/19. Allergies/Adverse Reactions: Allergies hydrocodone bitartrate [From Lortab] Allergy (Intermediate, Verified 09/06/19 07:31) Other lips swell, ataxia etodolac Allergy (Verified 09/06/19 07:31) Unknown misoprostol Allergy (Verified 09/06/19 07:31) Unknown celecoxib Adverse Reaction (Intermediate, Verified 09/06/19 07:31) Other heart palpitations diclofenac [Diclofenac] Adverse Reaction (Mild, Verified 09/06/19 07:31) Abd cramps/diarrhea ketorolac tromethamine [From Toradol] Adverse Reaction (Mild, Verified 09/06/19 07:31) Other balance issues metoclopramide HCl [From Reglan] Adverse Reaction (Mild, Verified 09/06/19 07:31) Other worsens restless leg atorvastatin [From Lipitor] Adverse Reaction (Verified 09/06/19 07:31) Other FACE SPASMS clindamycin Adverse Reaction (Verified 09/06/19 07:31) Mucosal lesions Home Medications: Ambulatory Orders Medication Instructions Recorded Levothyroxine [Synthroid] 175 mcg PO DAILY 09/01/13 Omeprazole [Prilosec] 20 mg PO DAILY 12/13/16 Cholecalciferol (Vitamin D3) 5,000 unit PO DAILY@1200 01/25/17 [Vitamin D3] [place]-3 Fatty Acids/Fish Oil [Fish 2,000 mg PO DAILY 03/21/18 Oil 1,000 mg Capsule] Gabapentin 1,200 mg PO BID 08/01/18 Gabapentin [Neurontin] 600 mg PO .LUNCHTIME 08/01/18 Lisinopril [Zestril] 10 mg PO DAILY 08/01/18 Pramipexole Di-HCl [Pramipexole 1.5 tab PO DAILY 08/01/18 Dihydrochloride] Pramipexole Di-HCl [Pramipexole 3 mg PO QHS 08/01/18 Dihydrochloride] Venlafaxine HCl [Effexor Xr] 1 tab PO DAILY 08/01/18 Venlafaxine HCl [Venlafaxine HCl 1 tab PO DAILY 08/01/18 ER] Aspirin [Aspir-Low] 81 mg PO DAILY 05/02/19 Famotidine [Pepcid] 40 mg PO QHS 05/02/19 traMADol [Ultram] 50 - 100 mg PO Q6H PRN PRN 05/02/19 Ferrous Sulfate 130 mg PO DAILY 08/30/19 Folic Acid 1 mg PO DAILY 08/30/19 Montelukast [Singulair] 10 mg PO DAILY@1700 #90 tab 09/08/19 - Family History Maternal Heart Disease, Hypertension Paternal Heart Disease, Hypertension Sibling Cancer, Diabetes, Hypertension, - Smoking Status: Former smoker Review of Systems REVIEW OF SYSTEMS: Const: Reports weight change, but denies anorexia, change in appetite, fever, hard of hearing and vision problems. CV: Denies chest pain, heart murmur, irregular heartbeat and peripheral vascular disease. Resp: Reports sleep apnea, but denies asthma, cough, pneumonia, SOB, tuberculosis and wheezing. GI: Denies constipation, diarrhea, difficulty swallowing, heartburn, nausea, bloody stools and vomiting. : Urinary: reports incontinence. Musculo: Reports leg swelling, limp and weakness, but denies trouble walking. Skin: Denies Raynaud's, history of shingles and tattoo. Neuro: Reports difficulty with balance and numbness/tingling but denies ambulatory dysfunction, dizziness and tremor. Psych: Denies anxiety, depression, insomnia, mental illness and stress. Mervin/Lymph: Denies anemia, bleeding/bruising tendency and past transfusion. - Physical Exam General: Awake, alert, and oriented. HEENT: PERRL, EOMI. Throat is clear. Neck: Supple, nontender. No cervical adenopathy. Lungs: Clear to auscultation. Heart: Regular rate and rhythm. Abdomen: Soft, nondistended. Extremities: Mild swelling noted right knee. No evidence of infection. On the right knee area is a midline healed incision except for the most inferior aspect by the tibial tubercle where there is a nonhealing ulcer. Good granulation tissue seen. No evidence of infection. No tunnelling noted superiorly toward the knee joint. Measures 1.5 x 0.8 x 0.4 cm. No inguinal adenopathy. Dorsalis pedis pulses are palpable. Patient is able to flex and extend the knee Neurological: CN II-XII grossly intact. Psychiatric: Normal mood and affect. Vital Signs Temp Pulse Resp BP 97.6 F L 83 18 133/77 H 11/20/19 08:26 11/20/19 08:26 11/20/19 08:26 11/20/19 08:26 Wound Measurements and Assessment WC - Nurse 1 - General Ulcer Measurement Start: 11/20/19 08:08 Freq: Status: Active Protocol: Activity Type Activity Date Activity User E-Sign Co-Sign Detail Recorded Client Recorded Date Recorded By Document 11/20/19 08:26 PL [id number] 11/20/19 08:30 PL 11/20/19 08:26 Wound Center Nurse 1 [Ulcer Assessment] #2 Right Inferior Knee -Combined with other wound No -Current Size (cm) - Length 1.5 -Current Size (cm) - Width 0.8 -Current Size (cm) - Depth 0.4 -Total Square Cm 1.20 -Date of Last Picture (Recall this 11/20/19 field) -Photo Taken Yes -Epithelialization None Present -Tunneling No -Undermining/Tunneling No -Circular Undermining No -Classification - Thickness Full Thickness with Exposed Support Structure -Wound Margin Distinct, Outline Attached -Granulation Amt Medium (34-66%) -Granulation Quality [place] -Slough/Fibrin Yes -Necrosis Amt Medium (34-66%) -Necrotic Tissue Type Adherent Slough -Texture (Aileen-wound Skin Appearance) No Abnormality -Moisture (Aileen-wound Skin Appearance No Abnormality ) -Color (Aileen-wound Skin Appearance) No Abnormality -Temperature (Aileen-wound Skin No Abnormality Appearance) (Pt Warm) -Ulcer Cleansing Rinsed/ Irrigated with Saline -Foul Odor after Cleansing No -Anesthetic Used 4% Lidocaine Solution [Edema Assessment] -Right Calf (cm) 42 -Right Ankle (cm) 19 WC - Nurse 2 - General Ulcer CM Notes Start: 11/20/19 08:08 Freq: Status: Active Protocol: Activity Type Activity Date Activity User E-Sign Co-Sign Detail Recorded Client Recorded Date Recorded By Document 11/20/19 08:56 ALETA [id number] 11/20/19 09:01 ALETA 11/20/19 08:56 Wound Center Nurse 2 [Procedure/Treatment] #2 Right Inferior Knee -Time 08:57 -Correct Patient Yes -Correct Side, Site, Position Yes -Correct Procedure Yes -Procedure Performed Yes -Type of Procedure Debridement -Clinical Debridement Subcutaneous -Tissue Removed Subcutaneous -Post Debridement (cm) - Length 1.6 -Post Debridement (cm) - Width 1.0 -Post Debridement (cm) - Depth 1.0 -Total Square (Post) (cm) 1.60 -Area of Debridement (cm) - Length 1.6 -Area of Debridement (cm) - Width 1.0 -Total Square (Area) (cm) 1.60 -Tunneling No -Undermining/Tunneling No -Circular Undermining No -Wound/Ulcer Outcome Not Healed -Ulcer Cleansing Rinsed/ Irrigated with Saline -Foul Odor after Cleansing No -Bioengineered Tissue No -Bleeding Controlled with Pressure -Offloading No -Treatment Response Procedure Tolerated Well -Debridement - Subq, 1st 20sq cm Yes [See Physician Procedure note for Specifics] Pain Scale: 0-10 Numeric [Pain] -Is Patient Pain Free? Yes Pain Scale: FLACC [Pain Assessment] FLACC scale recommended for Pediatric Patients age 1-7 yrs -Legs Normal position , relaxed -Activity Lying quietly, Normal position , Moves easily -Cry No Cry (Awake or Asleep) -Consolability Content, Relaxed -Effectiveness of Alleviating Factor/ Completely Intervention effective - Nurse 3 - General Ulcer D/C NN Start: 11/20/19 23:22 Freq: Status: Active Protocol: Activity Type Activity Date Activity User E-Sign Co-Sign Detail Recorded Client Recorded Date Recorded By Document 11/21/19 09:50 [id number] 11/21/19 09:51 11/21/19 09:50 Wound Care Nurse 3 [Wound Dressing] #2 Right Inferior Knee -Ulcer Cleansing Rinsed/ Irrigated with Saline -Foul Odor after Cleansing No -Primary Dressing Applied Aquacel AG 2x2 -Primary Dressing Covered/Secured Dry Gauze with -Aquacel AG 2x2 1 [Compression Applied] Right -Roger Wrap(s) Yes Pain Scale: 0-10 Numeric [Pain] -Is Patient Pain Free? Yes - Visit Discharge [Visit Discharge Information] -Discharge Condition Stable -Ambulatory Status Ambulatory -Transportation Private Auto -Medication Reconcilliation completed Yes & provided to patient/care provider -Clinical Summary of Care Provided Yes Debridement Note Post-Debridement Measurements/Treatment - Nurse 2 - General Ulcer CM Notes Start: 11/20/19 08:08 Freq: Status: Active Protocol: Activity Type Activity Date Activity User E-Sign Co-Sign Detail Recorded Client Recorded Date Recorded By Document 11/20/19 08:56 [id number] 11/20/19 09:01 11/20/19 08:56 Wound Center Nurse 2 #2 Right Inferior Knee -Time 08:57 -Correct Patient Yes -Correct Side, Site, Position Yes -Correct Procedure Yes -Procedure Performed Yes -Type of Procedure Debridement -Clinical Debridement Subcutaneous -Tissue Removed Subcutaneous -Post Debridement (cm) - Length 1.6 -Post Debridement (cm) - Width 1.0 -Post Debridement (cm) - Depth 1.0 -Total Square (Post) (cm) 1.60 -Area of Debridement (cm) - Length 1.6 -Area of Debridement (cm) - Width 1.0 -Total Square (Area) (cm) 1.60 -Tunneling No -Undermining/Tunneling No -Circular Undermining No -Wound/Ulcer Outcome Not Healed -Ulcer Cleansing Rinsed/ Irrigated with Saline -Foul Odor after Cleansing No -Bioengineered Tissue No -Bleeding Controlled with Pressure -Offloading No -Treatment Response Procedure Tolerated Well -Debridement - Subq, 1st 20sq cm Yes Pain Scale: 0-10 Numeric Is Patient Pain Free? Yes Pain Scale: FLACC Legs Normal position , relaxed Activity Lying quietly, Normal position , Moves easily Cry No Cry (Awake or Asleep) Consolability Content, Relaxed Effectiveness of Alleviating Factor/ Completely Intervention effective WC - Nurse 3 - General Ulcer D/C NN Start: 11/20/19 23:22 Freq: Status: Active Protocol: Activity Type Activity Date Activity User E-Sign Co-Sign Detail Recorded Client Recorded Date Recorded By Document 11/21/19 09:50 ALETA [id number] 11/21/19 09:51 ALETA 11/21/19 09:50 Wound Care Nurse 3 #2 Right Inferior Knee -Ulcer Cleansing Rinsed/ Irrigated with Saline -Foul Odor after Cleansing No -Primary Dressing Applied Aquacel AG 2x2 -Primary Dressing Covered/Secured with Dry Gauze -Aquacel AG 2x2 1 Right -Roger Wrap(s) Yes Pain Scale: 0-10 Numeric Is Patient Pain Free? Yes WC - Visit Discharge Discharge Condition Stable Ambulatory Status Ambulatory Transportation Private Auto Medication Reconcilliation completed & Yes provided to patient/care provider Clinical Summary of Care Provided Yes Wound debrided: #2 Right inferior knee. Laterality: Right Wound Grade/Stage: 2. Type of Debridement: Excisional debridement Anesthesia Used: 4% Lidocaine Solution Depth: Down to and including healthy tissue, in the subcutaneous layer Percentage of wound debrided: 100 Instrument Used: 3mm curette Tissue Removed: subcutaneous tissue. Severity: Fat Layer Exposed Amount of bleeding with debridement: Mild Bleeding Controlled with: Pressure Patient tolerated procedure well, - - a wound culture was obtained today. Assessment/Plan Assessment: 1. Nonhealing ulcer right inferior knee by tibial tubercle. 2. History of revision replacement right knee. 3. History of right TKA infection. 4. Former smoker. Plan: Continue Silver dressing changes daily. Continue ROGER wrap for compression since there is some residual swelling in the knee. A wound culture was obtained today. A positive culture will necessitate antibiotic therapy. Will order a CT to look for residual fluid collection. Encourage nutritional supplementation with protein to help the healing process. Ideally, she will need operative debridement and local flap reconstruction. This may necessitate a bipedicled fasciocutaneous flap and skin grafting of the donor area. Hopefully there is no communication with the knee joint. If so, then she would need a muscle flap reconstruction over the knee joint with skin grafting of the muscle. Would use the gastrocnemius muscle flap. Biopsy of the bone would be done to evaluate for osteomyelitis. If present, then termite control servicer IV antibiotics would be needed through a PICC line. Infectious Diseases has assisted with antibiotic management through this process since the first revision surgery in 01/19. Followup 2 weeks. Office Visits / Consults: [id number] OV L4 New - -25 Modifier ICD-10 - L97.912, Z96.651, T84.53xS, Z87.891 [id number]: [id number] [place] subq tissue 20 sq cm/< - ICD-10 - L97.912, Z96.651, T84.53xS, Z87.891
[2019-11-27 08:12] VITALS: BP 140/72; PULSE 76; RESP 22; TEMP 36.6; BMI 44.6
--- NOTE | 2019-11-27 09:18 | PCM.WC.PN ---
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 Status: Chronic Current Visit: Yes Code(s): L97.912 - Non-pressure chronic ulcer of unspecified part of right lower leg with fat layer exposed Comment: Nonhealing ulcer right inferior knee by tibial tubercle (2) History of right knee joint replacement Status: Chronic Current Visit: Yes Code(s): Z96.651 - Presence of right artificial knee joint (3) History of DVT (deep vein thrombosis) Status: Chronic Current Visit: Yes Code(s): Z86.718 - Personal history of other venous thrombosis and embolism (4) Former smoker Status: Chronic Current Visit: Yes Code(s): Z87.891 - Personal history of nicotine dependence Type of Wound Date of Service: 11/27/19 Chief Complaint: Nonhealing ulcer right inferior knee. History of Wound: 59-year-old female presents with nonhealing ulcer right inferior knee. She has undergone bilateral total knee replacement surgeries in the past. Her right total knee replacement procedure was performed in 2011. She developed a right TKA infection and went to surgery on 01/26/17 where she underwent irrigation debridement right knee with complete synovectomy and tibial component revision. She has been on antibiotics. She has had multiple procedures on her right knee. She underwent right knee irrigation debridement with component revision/polyethylene exchange and right knee superficial irrigation debridement of incisional ulcerations/sinus tract ?2, 1 cm x 1 cm each on 03/05/17. This was followed by removal of total knee replacement placement articulating antibiotic spacer and placement of nonbiodegradable antibiotic delivery system on 01/28/19. On 05/19/19 she underwent removal of articulating antibiotic spacer and intramedullary antibiotic dowel rods with placement of new articulating antibiotic spacer and intramedullary antibiotic dowel rods. Her last procedure was on 09/06/19 where she underwent removal articulating antibiotic spacer with revision right total knee replacement and removal nonbiodegradable antibiotic delivery systems. After the last surgery, she was placed on Doxycycline and Voriconazole. Today she has concerns about her right knee swelling and an increase in drainage from the ulcer. She states that if she places pressure on her right knee then she has drainage coming out of the ulcer. Today she denies fever. Her appetite is good. Progress of Wound: Increase drainage, right knee very swollen with palpable fluid that when compressed drains out of ulcer that is distal to the knee. - Physical Exam Vital Signs Temp Pulse Resp BP 98 F 76 22 H 140/72 H 11/27/19 08:12 11/27/19 08:12 11/27/19 08:12 11/27/19 08:12 General: Alert, Oriented x3, Cooperative HEENT: Atraumatic Oral: Moist Mucosa Neck: Supple Lungs: Normal air movement Cardiovascular: Regular rate Extremities: Capillary Refill Less than 3 Seconds, Edema, Tenderness Skin: Ulcer/ Wound - Right proximal medial lower leg ulcer. Ulcer is beefy pink but there is a large amount of serosanguineous drainage that can be expressed from the ulcer when pressure is placed on her knee. The knee is swollen and has a fluid wave on palpation. Wound Measurements and Assessment WC - Nurse 1 - General Ulcer Measurement Start: 11/20/19 08:08 Freq: Status: Active Protocol: Activity Type Activity Date Activity User E-Sign Co-Sign Detail Recorded Client Recorded Date Recorded By Document 11/27/19 08:12 DL [id number] 11/27/19 08:17 DL 11/27/19 08:12 Wound Center Nurse 1 [Ulcer Assessment] #2 Right Ant Lower Leg -Current Size (cm) - Length 1.5 -Current Size (cm) - Width 0.7 -Current Size (cm) - Depth 0.4 -Total Square Cm 1.05 -Photo Taken No -Undermining/Tunneling Starts (O' 2 clock) -Undermining/Tunneling Ends (O'clock) 4 -Maximum Distance (cm) 0.2 -Exudate Amt Small -Exudate Type Serosanguineous -Wound Margin Thickened & Rolled Under -Granulation Amt Large (67-100%) -Granulation Quality Chloride -Necrosis Amt Small (1-33%) -Necrotic Tissue Type Adherent Slough -Structure Exposed N/A -Texture (Aileen-wound Skin Appearance) Scarring -Moisture (Aileen-wound Skin Appearance No Abnormality ) -Color (Aileen-wound Skin Appearance) Hemosiderin Staining -Temperature (Aileen-wound Skin No Abnormality Appearance) (Pt Warm) -Tenderness on Palpation (Aileen-wound No Skin Appearance) -Ulcer Cleansing Rinsed/ Irrigated with Saline -Foul Odor after Cleansing No -Anesthetic Used 4% Lidocaine Solution [Edema Assessment] -Right Calf (cm) 42.2 -Right Ankle (cm) 25 - Nurse 2 - General Ulcer CM Notes Start: 11/20/19 08:08 Freq: Status: Active Protocol: Activity Type Activity Date Activity User E-Sign Co-Sign Detail Recorded Client Recorded Date Recorded By Document 11/27/19 08:52 [id number] 11/27/19 08:54 11/27/19 08:52 Wound Center Nurse 2 [Procedure/Treatment] #2 Right Ant Lower Leg -Time 08:53 -Correct Patient Yes -Correct Side, Site, Position Yes -Correct Procedure Yes -Procedure Performed Yes -Type of Procedure Debridement -Clinical Debridement Subcutaneous -Tissue Removed Subcutaneous -Post Debridement (cm) - Length 1.5 -Post Debridement (cm) - Width 0.8 -Post Debridement (cm) - Depth 0.6 -Total Square (Post) (cm) 1.20 -Area of Debridement (cm) - Length 1.5 -Area of Debridement (cm) - Width 0.8 -Total Square (Area) (cm) 1.20 -Tunneling No -Undermining/Tunneling No -Circular Undermining No -Wound/Ulcer Outcome Not Healed -Ulcer Cleansing Rinsed/ Irrigated with Saline -Foul Odor after Cleansing No -Bioengineered Tissue No -Bleeding Controlled with Pressure -Offloading No -Treatment Response Procedure Tolerated Well -Debridement - Subq, 1st 20sq cm Yes [See Physician Procedure note for Specifics] Pain Scale: 0-10 Numeric [Pain] -Is Patient Pain Free? Yes - Nurse 3 - General Ulcer D/C NN Start: 11/20/19 23:22 Freq: Status: Active Protocol: Activity Type Activity Date Activity User E-Sign Co-Sign Detail Recorded Client Recorded Date Recorded By Document 11/27/19 08:56 [id number] 11/27/19 08:57 11/27/19 08:56 Wound Care Nurse 3 [Wound Dressing] #2 Right Ant Lower Leg -Ulcer Cleansing Rinsed/ Irrigated with Saline -Foul Odor after Cleansing No -Primary Dressing Applied Aquacel AG 4x4 -Primary Dressing Covered/Secured Dry Gauze,Dry with Gauze & Roll Gauze,Secured with Tape -Aquacel AG 4x4 1 [Compression Applied] Right -Compression Wrap Roger Wrap Pain Scale: 0-10 Numeric [Pain] -Is Patient Pain Free? Yes WC - Visit Discharge [Visit Discharge Information] -Discharge Condition Stable -Ambulatory Status Ambulatory -Transportation Private Auto -Medication Reconcilliation completed Yes & provided to patient/care provider -Clinical Summary of Care Provided Yes Musculoskeletal: Tenderness - right knee Neurological: Cranial nerves II-XII grossly intact Psych/Mental Status: Normal Affect, Appropriate Debridement Note Post-Debridement Measurements/Treatment - Nurse 2 - General Ulcer CM Notes Start: 11/20/19 08:08 Freq: Status: Active Protocol: Activity Type Activity Date Activity User E-Sign Co-Sign Detail Recorded Client Recorded Date Recorded By Document 11/20/19 08:56 [id number] 11/20/19 09:01 Document 11/27/19 08:52 [id number] 11/27/19 08:54 11/20/19 11/27/19 08:56 08:52 Wound Center Nurse 2 #2 Right Ant Lower Leg -Time 08:57 08:53 -Correct Patient Yes Yes -Correct Side, Site, Position Yes Yes -Correct Procedure Yes Yes -Procedure Performed Yes Yes -Type of Procedure Debridement Debridement -Clinical Debridement Subcutaneous Subcutaneous -Tissue Removed Subcutaneous Subcutaneous -Post Debridement (cm) - Length 1.6 1.5 -Post Debridement (cm) - Width 1.0 0.8 -Post Debridement (cm) - Depth 1.0 0.6 -Total Square (Post) (cm) 1.60 1.20 -Area of Debridement (cm) - Length 1.6 1.5 -Area of Debridement (cm) - Width 1.0 0.8 -Total Square (Area) (cm) 1.60 1.20 -Tunneling No No -Undermining/Tunneling No No -Circular Undermining No No -Wound/Ulcer Outcome Not Healed Not Healed -Ulcer Cleansing Rinsed/ Rinsed/ Irrigated with Irrigated with Saline Saline -Foul Odor after Cleansing No No -Bioengineered Tissue No No -Bleeding Controlled with Pressure Pressure -Offloading No No -Treatment Response Procedure Procedure Tolerated Well Tolerated Well -Debridement - Subq, 1st 20sq cm Yes Yes Pain Scale: 0-10 Numeric Is Patient Pain Free? Yes Yes Pain Scale: FLACC Legs Normal position , relaxed Activity Lying quietly, Normal position , Moves easily Cry No Cry (Awake or Asleep) Consolability Content, Relaxed Effectiveness of Alleviating Factor/ Completely Intervention effective - Nurse 3 - General Ulcer D/C NN Start: 11/20/19 23:22 Freq: Status: Active Protocol: Activity Type Activity Date Activity User E-Sign Co-Sign Detail Recorded Client Recorded Date Recorded By Document 11/21/19 09:50 ALETA [id number] 11/21/19 09:51 Document 11/27/19 08:56 ALETA [id number] 11/27/19 08:57 JF 11/21/19 11/27/19 09:50 08:56 Wound Care Nurse 3 #2 Right Ant Lower Leg -Ulcer Cleansing Rinsed/ Rinsed/ Irrigated with Irrigated with Saline Saline -Foul Odor after Cleansing No No -Primary Dressing Applied Aquacel AG 2x2 -Primary Dressing Applied Aquacel AG 4x4 -Primary Dressing Covered/Secured with Dry Gauze Dry Gauze,Dry Gauze & Roll Gauze,Secured with Tape -Aquacel AG 4x4 1 -Aquacel AG 2x2 1 Right -Roger Wrap(s) Yes -Compression Wrap Roger Wrap Pain Scale: 0-10 Numeric Is Patient Pain Free? Yes Yes WC - Visit Discharge Discharge Condition Stable Stable Ambulatory Status Ambulatory Ambulatory Transportation Private Auto Private Auto Medication Reconcilliation completed & Yes Yes provided to patient/care provider Clinical Summary of Care Provided Yes Yes Wound debrided: medial, proximal leg ulcer Laterality: Right Type of Debridement: Excisional debridement Anesthesia Used: 5% Lidocaine Gel Depth: Down to and including healthy tissue, in the subcutaneous layer Percentage of wound debrided: 100 Instrument Used: 3mm curette Tissue Removed: Subcutaneous tissue and slough Severity: Fat Layer Exposed Amount of bleeding with debridement: Mild Bleeding Controlled with: Pressure, Compression and gauze Patient tolerated procedure well Assessment/Plan Active Problems Former smoker (Chronic) History of right knee joint replacement (Chronic) Nonhealing ulcer of right lower extremity with fat layer exposed (Chronic) Nonhealing ulcer right inferior knee by tibial tubercle History of DVT (deep vein thrombosis) (Chronic) Assessment: 1. Nonhealing ulcer right inferior knee by tibial tubercle. 2. History of revision replacement right knee. 3. History of right TKA infection. 4. Former smoker. Plan: Continue Silver dressing changes daily. Continue ROGER wrap for compression since there is some residual swelling in the knee. A wound culture was obtained on 11/20/19 which negative for bacterial growth. She has a CT scan scheduled for Wednesday to look for residual fluid collection. Encourage nutritional supplementation with protein to help the healing process. She states that she started to have increased drainage from her right proximal leg ulcer last . Today her right knee is very swollen and has obvious seroma with a fluid wave. When she presses on the right side of her knee the fluid shoots out of her ulcer. Instructed her that she needs to follow up with Dr. Barton for further evaluation of her right knee seroma because that is an orthopedic issue. Ideally, she will need operative debridement and local flap reconstruction. This may necessitate a bipedicled fasciocutaneous flap and skin grafting of the donor area. Hopefully there is no communication with the knee joint. If so, then she would need a muscle flap reconstruction over the knee joint with skin grafting of the muscle. Would use the gastrocnemius muscle flap. Biopsy of the bone would be done to evaluate for osteomyelitis. If present, then secretary IV antibiotics would be needed through a PICC line. Infectious Diseases has assisted with antibiotic management through this process since the first revision surgery in 01/19. Followup 3 weeks because of the holiday in 2 weeks. [id number]: [id number] [place] subq tissue 20 sq cm/<
== END 2019-12-04 23:59 ==
LOC: WC 08:15
PROVIDERS: PCP Family Medicine; Referring Provider Surgery; Visit Provider Surgery
DX: L97.912 Non-pressure chronic ulcer of unspecified part of right lower leg with fat layer exposed (principal); Z96.651 Presence of right artificial knee joint; T84.53XS Infection and inflammatory reaction due to internal right knee prosthesis, sequela; Z87.891 Personal history of nicotine dependence; Z86.718 Personal history of other venous thrombosis and embolism; G47.33 Obstructive sleep apnea (adult) (pediatric); E03.9 Hypothyroidism, unspecified; E05.00 Thyrotoxicosis with diffuse goiter without thyrotoxic crisis or storm; E11.9 Type 2 diabetes mellitus without complications; E66.9 Obesity, unspecified; F32.9 Major depressive disorder, single episode, unspecified; Z79.82 Long term (current) use of aspirin; Z82.49 Family history of ischemic heart disease and other diseases of the circulatory system; Z88.5 Allergy status to narcotic agent; Z88.8 Allergy status to other drugs, medicaments and biological substances; Z90.49 Acquired absence of other specified parts of digestive tract
CPT/HCPCS: 11042; 11045; 87070; 87075; 87205; 99213; G0463

== ENCOUNTER 2019-11-28 19:55 | Inpatient (IN) | payer BC, SELFPAY ==
[2019-11-27 08:12] VITALS: BMI 44.6
[2019-11-28 19:52] VITALS: BP 107/68; PULSE 87; RESP 16; TEMP 37; O2SAT 94
[2019-11-28 19:55] VITALS: BMI 45.3
[2019-11-28 20:13] VITALS: BMI 45.4
[2019-11-28 21:38] VITALS: BMI 45.3
[2019-11-29] VITALS (13 sets, daily range): BP systolic 121–160; BP diastolic 70–94; PULSE 73–90; RESP 16–20; TEMP 36.5–37.3; O2SAT 93–99
--- NOTE | 2019-11-29 | PCM.CONS.GEN ---
Problem List (1) Former smoker Status: Chronic (2) History of DVT (deep vein thrombosis) Status: Chronic (3) History of right knee joint replacement Status: Chronic (4) Nonhealing ulcer of right lower extremity with fat layer exposed Status: Chronic Comment: Nonhealing ulcer right inferior knee by tibial tubercle (5) Infection of right knee Status: Acute (6) Septic joint Status: Acute (7) DVT of lower extremity (deep venous thrombosis) Status: Chronic (8) Depression Status: Chronic (9) Diabetes mellitus Status: Chronic Qualifiers: Diabetes mellitus type: type 2 (10) Diverticulosis of colon without diverticulitis Status: Chronic (11) Edema leg Status: Chronic (12) History of Graves' disease Status: Chronic (13) Hx of total knee replacement Status: Chronic Qualifiers: Laterality: right Qualified Code(s): Z96.651 - Presence of right artificial knee joint Comment: right (14) Hypothyroidism Status: Chronic Qualifiers: (15) Infection and inflammatory reaction due to internal right knee prosthesis, sequela Status: Chronic (16) Leg swelling Status: Chronic (17) Lumbar disc disease Status: Chronic (18) RENNY (obstructive sleep apnea) Status: Chronic (19) Obesity Status: Chronic Qualifiers: Obesity type: due to excess calories (20) Postphlebitic syndrome with inflammation Status: Chronic (21) Presence of IVC filter Status: Chronic (22) Renal insufficiency Status: Chronic (23) Restless leg Status: Chronic (24) Septic arthritis of knee, right Status: Chronic (25) Chest pain Status: Inactive Qualifiers: Chest pain type: unspecified Qualified Code(s): R07.9 - Chest pain, unspecified (26) Superficial thrombophlebitis Status: Inactive Qualifiers: Superficial thrombophlebitis-Involved body area: lower extremity Laterality: left Qualified Code(s): I80.02 - Phlebitis and thrombophlebitis of superficial vessels of left lower extremity Reason for Consult Date of Consultation: 11/29/19 Reason for Consultation: Perioperative medical management. History of Present Illness: The patient is a 59 year old F with history of recurrent prosthetic joint infection, right knee status post revision on 09/06/2019 was advised for direct admission by Dr. Barton for debridement of chronic draining sinus, suggestive of prosthetic joint infection. Patient had last surgery in September 2019 with removal of antibiotic spacer, revision of right TKR. Patient has long chronic serosanguineous drainage from right proximal tibia. Patient has history of chronic bacterial and fungal knee infection and is on voriconazole and doxycycline.. Most recently Neetu parapsilosis. Denies fever, chills. Patient is on walker. She gets short of breath on climbing 1 flight of stairs. Denies chest pressure or chest pain at rest or exertion. Patient does not have history of coronary artery disease, CHF, COPD or other lung disease. Since patient is physically deconditioned and states that previous 8 surgery on right knee. [] Past Medical History Past Medical History (Chronic Problems): Chronic Problems Former smoker (Chronic) History of right knee joint replacement (Chronic) Infection and inflammatory reaction due to internal right knee prosthesis, sequela (Chronic) Nonhealing ulcer of right lower extremity with fat layer exposed (Chronic) Nonhealing ulcer right inferior knee by tibial tubercle History of DVT (deep vein thrombosis) (Chronic) Septic arthritis of knee, right (Chronic) Hx of total knee replacement (Chronic) right Restless leg (Chronic) RENNY (obstructive sleep apnea) (Chronic) Hypothyroidism (Chronic) Diverticulosis of colon without diverticulitis (Chronic) Depression (Chronic) Postphlebitic syndrome with inflammation (Chronic) Lumbar disc disease (Chronic) History of Graves' disease (Chronic) Diabetes mellitus (Chronic) Renal insufficiency (Chronic) Presence of IVC filter (Chronic) Obesity (Chronic) Edema leg (Chronic) Leg swelling (Chronic) DVT of lower extremity (deep venous thrombosis) (Chronic) Allergies hydrocodone bitartrate [From Lortab] Allergy (Intermediate, Verified 09/06/19 07:31) Other lips swell, ataxia etodolac Allergy (Verified 09/06/19 07:31) Unknown misoprostol Allergy (Verified 09/06/19 07:31) Unknown celecoxib Adverse Reaction (Intermediate, Verified 09/06/19 07:31) Other heart palpitations diclofenac [Diclofenac] Adverse Reaction (Mild, Verified 09/06/19 07:31) Abd cramps/diarrhea ketorolac tromethamine [From Toradol] Adverse Reaction (Mild, Verified 09/06/19 07:31) Other balance issues metoclopramide HCl [From Reglan] Adverse Reaction (Mild, Verified 09/06/19 07:31) Other worsens restless leg atorvastatin [From Lipitor] Adverse Reaction (Verified 09/06/19 07:31) Other FACE SPASMS clindamycin Adverse Reaction (Verified 09/06/19 07:31) Mucosal lesions Home Medications: Ambulatory Orders Medication Instructions Recorded Levothyroxine [Synthroid] 175 mcg PO DAILY 09/01/13 Omeprazole [Prilosec] 20 mg PO DAILY 12/13/16 Cholecalciferol (Vitamin D3) 5,000 unit PO DAILY@1200 01/25/17 [Vitamin D3] Axis-3 Fatty Acids/Fish Oil [Fish 2,000 mg PO LUNCH 03/21/18 Oil 1,000 mg Capsule] Gabapentin 800 mg PO BID 08/01/18 Gabapentin [Neurontin] 1,200 mg PO QHS 08/01/18 Lisinopril [Zestril] 10 mg PO LUNCH 08/01/18 Pramipexole Di-HCl [Pramipexole 1 mg PO LUNCH 08/01/18 Dihydrochloride] Pramipexole Di-HCl [Pramipexole 1.5 tab PO QHS 08/01/18 Dihydrochloride] Venlafaxine HCl [Effexor Xr] 1 tab PO DAILY 08/01/18 Venlafaxine HCl [Venlafaxine HCl 1 tab PO DAILY 08/01/18 ER] Aspirin [Aspir-Low] 81 mg PO LUNCH 05/02/19 Famotidine [Pepcid] 40 mg PO QHS 05/02/19 traMADol [Ultram] 50 - 100 mg PO Q6H PRN PRN 05/02/19 Ferrous Sulfate 325 mg PO DAILY 08/30/19 Ascorbic Acid [Vitamin C] 500 mg PO LUNCH 11/28/19 Doxycycline 100 mg PO BID 11/28/19 Montelukast [Singulair] 10 mg PO QHS 11/28/19 Pramipexole Di-HCl [Mirapex] 0.5 mg PO DAILY 11/28/19 Voriconazole 200 mg PO BID 11/28/19 Surgical History: appendectomy, cholecystectomy, total knee arthroplasty - 2011 on the right and 2014 on the left., tonsillectomy, - - BL thumb surgery. bilateral total knee replacement surgery, 2011 on the right and 2014 on the left. cholecystectomy. incisional hernia repair. Lumbar disc surgery November 2016. endothermal ablation of superficial veins in the left lower extremity. IVC filter. The patient is a Ab0. Left total knee replacement arthroplasty utilizing [place] [employer] size 5 cemented - 06/04/14. Irrigation debridement right knee with complete synovectomy and tibial component revision - 01/26/17. 1. Right knee irrigation debridement 1 component revision/polyethylene exchange. 2. Right knee superficial irrigation debridement of incisional ulcerations/sinus tract ?2, 1 cm x 1 cm each - 03/05/17. edure Performed:: Removal of total knee replacement placement articulating antibiotic spacer. Placement of nonbiodegradable antibiotic delivery system - 01/28/19. Removal of articulating antibiotic spacer and intramedullary antibiotic dowel rods with placement of new articulating antibiotic spacer and intramedullary antibiotic dowel rods - 05/19/19. Procedure Performed:: Removal articulating antibiotic spacer, revision right total knee replacement. Removal nonbiodegradable antibiotic delivery systems - 09/06/19. Psychiatric History: Depression SHAMPOO ASSISTANT History: No pertinent SHAMPOO ASSISTANT history Smoking Status: Former smoker - *Family History Maternal History Items: Heart Disease, Hypertension Paternal History Items: Heart Disease, Hypertension Sibling History Items: Cancer, Diabetes, Hypertension, - Review of Systems Constitutional: Denies: Chills, Fever, Weight Change HEENT: Denies: Head Aches, Sinus Congestion, Sinus Drainage Cardiovascular: Denies: Chest Pain, Palpitations Respiratory: Denies: Cough, Shortness of breath at rest, Sputum production Gastrointestinal: Denies: Abdominal Pain, Nausea, Vomiting Genitourinary: Denies: Dysuria Musculoskeletal: Reports: Joint Pain, Joint stiffness, Joint swelling. Denies: Joint Tenderness Skin: Denies: Rash, Wounds Neurological: Reports: Balance problems, Incoordination. Denies: Focal weakness, Numbness, Tingling Psychiatric: Denies: Anxiety, Depression, Homicidal Ideations, Suicidal Ideations Hematologic/ Lymphatic: Denies: Easy Bruising, Easy Bleeding - Physical Exam Vitals/I&O's: Vital Signs Temp Pulse Resp BP Pulse Ox 98.6 F 87 16 107/68 94 11/28/19 19:52 11/28/19 19:52 11/28/19 19:52 11/28/19 19:52 11/28/19 19:52 Oxygen Delivery Method Room Air Weight: 264 lb 5.348 oz Body Mass Index (BMI) 45.3 Finger Stick Blood Glucose 112 General: Alert, Oriented x3, Cooperative HEENT: Atraumatic, PERRLA, EOMI, Normocephalic Neck: Supple, No JVD, Negative Carotid Bruits Lungs: Clear to auscultation, Normal air movement, No rhonchi, No wheeze, No rales Cardiovascular: Regular rate, Regular Rhythm, Normal S1, No murmurs Abdomen: Bowel Sounds Present, Soft, Non Tender, Non-Distended Extremities: Capillary Refill Less than 3 Seconds, Edema - Mild erythema on the right knee. Skin: Ulcer/ Wound - Chronic draining sinus with ulcer on right proximal tibia, serosanguineous discharge. Musculoskeletal: No Tenderness to Palpation of Joints or Extremities Neurological: Cranial nerves II-XII grossly intact, Deep Tendon Reflexes 2+/4 and Symmetrical, Neuro grossly intact Psych/Mental Status: Normal Affect, Appropriate Current Medications Ascorbic Acid (Vitamin C) 500 mg PO LUNCH [facility] Aspirin (Ecotrin) 81 mg PO LUNCH [facility] Cholecalciferol (Vitamin D (25mcg)) 5,000 unit PO DAILY@1200 [facility] Doxycycline Monohydrate (Doxycycline) 100 mg PO BID [facility] Last Admin: 11/28/19 22:14 Dose: Not Given Documented by: Enteral Nutritional Formula (Ensure Surgery) 237 ml PO 0600,1300,2000 [facility] Famotidine (Pepcid) 40 mg PO QHS [facility] Last Admin: 11/28/19 22:14 Dose: Not Given Documented by: Ferrous Sulfate (Ferrous Sulfate) 325 mg PO DAILY@1200 [facility] Gabapentin (Neurontin) 800 mg PO BID@0600,1200 [facility] Gabapentin (Neurontin) 1,200 mg PO QHS [facility] Last Admin: 11/28/19 22:14 Dose: Not Given Documented by: Lactated Ringer's () 1,000 mls @ 100 mls/hr IV .Q10H [facility] Levothyroxine Sodium (Synthroid) 175 mcg PO DAILY@0600 [facility] Lisinopril (Zestril) 10 mg PO LUNCH [facility] Montelukast Sodium (Singulair) 10 mg PO QHS [facility] Last Admin: 11/28/19 22:14 Dose: Not Given Documented by: Non-Formulary Medication (Voriconazole) 200 mg PO BID [facility] Txyte-8-Ivuz Ethyl Esters (Lovaza) 2 gm PO LUNCH [facility] Pantoprazole Sodium (Protonix) 20 mg PO DAILY [facility] Pramipexole Dihydrochloride (Mirapex) 0.5 mg PO DAILY@0600 [facility] Pramipexole Dihydrochloride (Mirapex) 1 mg PO LUNCH [facility] Pramipexole Dihydrochloride (Mirapex) 1.5 mg PO QHS [facility] Last Admin: 11/28/19 22:14 Dose: Not Given Documented by: Tramadol HCl (Ultram) 50 - 100 mg PO Q6H PRN PRN PRN Reason: Pain (1-10) Venlafaxine HCl (Effexor Xr) 225 mg PO DAILY [facility] Assessment/Plan All Active Problems Infection of right knee (Acute) Septic joint (Acute) This is a 59-year-old female is being admitted to orthopedic service for debridement of right knee with chronic draining serosanguineous discharge from sinus with ulcer on right proximal tibia 1. 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 Surgery is proposed for operative debridement of nonviable tissue. Patient is on doxycycline and voriconazole and is being continued. Pharmacological DVT prophylaxis after surgery as deemed appropriate by surgeon. Labs ordered. 2. HTN/morbid obesity: -She had a stress test in July 2018 which was unremarkable; for chest pain. Continue aspirin. Last BMP shows creatinine on baseline therefore continue lisinopril. -Weight loss counseling done. Blood pressure is controlled. 3. Iron deficiency anemia: Last H&H ..4. -Continue with iron supplementation 4. Anxiety/depression -Stable -Continue with Effexor 5. GERD -Stable. On Pepcid. 6. Hypothyroidism -Continue Synthroid. Home medication reconciliation done. 7. Rheumatoid arthritis -She does see a manager endoscopy as an outpatient and used to be on Plaquenil as well as steroid injections into her ankle until her knee infection which when she stopped both medications around January of last year. Follow-up manager endoscopy. DVT prophylaxis: Bilateral SCDs. Inpatient E&M: [id number] Init Hosp L3
--- NOTE | 2019-11-29 01:52 | EKG12_ITS ---
Test Reason : PRE-OP Blood Pressure : / mmHG Vent. Rate : 074 BPM Atrial Rate : 074 BPM P-R Int : 178 ms QRS Dur : 086 ms QT Int : 414 ms P-R-T Axes : 045 005 033 degrees QTc Int : 459 ms Normal sinus rhythm Low voltage QRS Borderline ECG When compared with ECG of 28-JAN-2019 05:56, No significant change was found Confirmed by DEANNA BERMAN, FATOUMATA ([id number]), magazine editor MOHAMUD NICOLE ([id number]) on 12/04/2019 1:42:31 PM Referred By: Major Barton Confirmed By:ISABELL HUERTA MD
--- NOTE | 2019-11-29 01:52 | NURSING ---
nursing supv notified that pt needs 2 large bore iv sites for OR in am unable to obtain by floor rns.
[2019-11-29] MEDS: Lactated Ringers 1,000 ML 100 ML IV (03:08)
[2019-11-29 03:46] LABS: M R Staph aureus DNA By PCR Negative (Negative); Probe Check PASS; Specimen Processing Control PASS
[2019-11-29 07:19] LABS: Absolute Lymphocyte Count 1.89 X10^3/uL (0.83-4.51); Absolute Neutrophil Count 5.1 X10^3/uL (2.0-7.7); Basophil# 0.06 X10^3/uL; Basophil% 0.8 % (0-1); Eosinophil# 0.34 X10^3/uL; Eosinophils% 4.3 % (0-5); Hematocrit 45.5 % (37-47); Hemoglobin 14.4 g/dL (12.0-15.0); Lymphocyte # 1.89 X10^3/ul (4.0); Lymphocyte % 23.7 % (19-41); Mean Corp Hgb Conc 31.6 g/dL (32-36); Mean Corpuscular Hgb 27.5 pg (27.0-32.0); Mean Corpuscular Volume 86.8 fL (81-99); Mean Platelet Vol. 9.8 fl (6.2-12.0); Monocyte# 0.55 X10^3/uL; Monocyte% 6.9 % (0-10); NRBC Flagged by Analyzer 0 % (0-5); Neutrophil # 5.11 X10^3/uL (2.7-7.7); Platelet Count 230 K/mm3 (150-450); RBC Distribution Width CV 15.7 % (11.6-14.6); RBC Distribution Width SD 49.2 fl (35.1-43.9); Red Blood Count 5.24 M/mm3 (4.2-5.4)
[2019-11-29 07:43] LABS: Prothrombin Time (Protime)PT. 12.8 SECONDS (11.7-14.9)
[2019-11-29 08:15] LABS: ALB/GLOB Ratio 0.9 RATIO (0.9-2.4); AST(SGOT) 15 U/L (15-37); Alanine Aminotransfer ALT/SGPT 23 U/L (13-56); Albumin, Serum 3.4 g/dL (3.2-5.0); Alkaline Phosphatase 172 U/L (45-117); Anion Gap 5 (5-15); BUN 15 mg/dL (7-18); BUN/Creat Ratio 20.3 RATIO (10-20); Calcium,Total 8.6 mg/dL (8.5-10.1); Chloride 110 mmol/L (98-107); Creatinine, Serum 0.74 mg/dL (0.55-1.02); EST Glomerular Filtration Rate 86 mL/min (>60); Est Glom Filt Rate - Afr Amer 103 mL/min (>60); Estimated Creatinine Clearance 70.68 ml/min; Globulin 3.6 g/dL (2.2-4.2); Glucose 112 mg/dL (74-106); Potassium 3.9 mmol/L (3.5-5.1); Sodium Level 143 mmol/L (136-145)
[2019-11-29 08:19] LABS: Thyroid Stim Hormone (TSH) 2.82 uIU/mL (0.358-3.74)
[2019-11-29] MEDS: Lactated Ringers 1,000 ML 125 ML IV ×3 (08:30→22:25)
[2019-11-29 08:35] LABS: Bedside Glucose 123 mg/dL (70-110)
[2019-11-29] MEDS: Gabapentin 600 MG Tablet PO (09:06)
[2019-11-29] MEDS: Acetaminophen 500 MG Tablet 1000 MG PO ×2 (09:06→22:24)
--- NOTE | 2019-11-29 09:43 | PCM.CONS.B ---
- Consult Date of Consult: 11/29/19 - Reason for Consult History of Present Illness Date of Service: 11/20/19 - WOUND CENTER CONSULT REFERRING PHYSICIAN: Dr. Barton. LIAISON ENGINEER: Dr. Lazaro. Chief Complaint: Nonhealing ulcer right inferior knee. History of Wound: 59-year-old female presents with nonhealing ulcer right inferior knee. She has undergone bilateral total knee replacement surgeries in the past. Her right total knee replacement procedure was performed in 2011. She developed a right TKA infection and went to surgery on 01/26/17 where she underwent irrigation debridement right knee with complete synovectomy and tibial component revision. She has been on antibiotics. She has had multiple procedures on her right knee. She underwent right knee irrigation debridement with component revision/polyethylene exchange and right knee superficial irrigation debridement of incisional ulcerations/sinus tract ?2, 1 cm x 1 cm each on 03/05/17. This was followed by removal of total knee replacement placement articulating antibiotic spacer and placement of nonbiodegradable antibiotic delivery system on 01/28/19. On 05/19/19 she underwent removal of articulating antibiotic spacer and intramedullary antibiotic dowel rods with placement of new articulating antibiotic spacer and intramedullary antibiotic dowel rods. Her last procedure was on 09/06/19 where she underwent removal articulating antibiotic spacer with revision right total knee replacement and removal nonbiodegradable antibiotic delivery systems. After the last surgery, she was placed on Doxycycline and Voriconazole. Today she denies fever. Her appetite is good. Past Medical History Past Medical History: Chronic Problems Former smoker (Chronic) History of right knee joint replacement (Chronic) Infection and inflammatory reaction due to internal right knee prosthesis, sequela (Chronic) Nonhealing ulcer of right lower extremity with fat layer exposed (Chronic) Nonhealing ulcer right inferior knee by tibial tubercle History of DVT (deep vein thrombosis) (Chronic) Septic arthritis of knee, right (Chronic) Hx of total knee replacement (Chronic) right Restless leg (Chronic) RENNY (obstructive sleep apnea) (Chronic) Hypothyroidism (Chronic) Diverticulosis of colon without diverticulitis (Chronic) Depression (Chronic) Postphlebitic syndrome with inflammation (Chronic) Lumbar disc disease (Chronic) History of Graves' disease (Chronic) Diabetes mellitus (Chronic) Renal insufficiency (Chronic) Presence of IVC filter (Chronic) Obesity (Chronic) Edema leg (Chronic) Leg swelling (Chronic) DVT of lower extremity (deep venous thrombosis) (Chronic) Surgical History: appendectomy, cholecystectomy, total knee arthroplasty - 2012 on the right and 2014 on the left., tonsillectomy, - - BL thumb surgery. bilateral total knee replacement surgery, 2011 on the right and 2014 on the left. cholecystectomy. incisional hernia repair. Lumbar disc surgery November 2016. endothermal ablation of superficial veins in the left lower extremity. IVC filter. The patient is a Ab0. Left total knee replacement arthroplasty utilizing Jose [employer] Tri[employer] size 5 cemented - 06/04/14. Irrigation debridement right knee with complete synovectomy and tibial component revision - 01/26/17. 1. Right knee irrigation debridement 1 component revision/polyethylene exchange. 2. Right knee superficial irrigation debridement of incisional ulcerations/sinus tract ?2, 1 cm x 1 cm each - 03/05/17. edure Performed:: Removal of total knee replacement placement articulating antibiotic spacer. Placement of nonbiodegradable antibiotic delivery system - 01/28/19. Removal of articulating antibiotic spacer and intramedullary antibiotic dowel rods with placement of new articulating antibiotic spacer and intramedullary antibiotic dowel rods - 05/19/19. Procedure Performed:: Removal articulating antibiotic spacer, revision right total knee replacement. Removal nonbiodegradable antibiotic delivery systems - 09/06/19. Allergies/Adverse Reactions: Allergies hydrocodone bitartrate [From Lortab] Allergy (Intermediate, Verified 09/06/19 07:31) Other lips swell, ataxia etodolac Allergy (Verified 09/06/19 07:31) Unknown misoprostol Allergy (Verified 09/06/19 07:31) Unknown celecoxib Adverse Reaction (Intermediate, Verified 09/06/19 07:31) Other heart palpitations diclofenac [Diclofenac] Adverse Reaction (Mild, Verified 09/06/19 07:31) Abd cramps/diarrhea ketorolac tromethamine [From Toradol] Adverse Reaction (Mild, Verified 09/06/19 07:31) Other balance issues metoclopramide HCl [From Reglan] Adverse Reaction (Mild, Verified 09/06/19 07:31) Other worsens restless leg atorvastatin [From Lipitor] Adverse Reaction (Verified 09/06/19 07:31) Other FACE SPASMS clindamycin Adverse Reaction (Verified 09/06/19 07:31) Mucosal lesions Home Medications: Ambulatory Orders Medication Instructions Recorded Levothyroxine [Synthroid] 175 mcg PO DAILY 09/01/13 Omeprazole [Prilosec] 20 mg PO DAILY 12/13/16 Cholecalciferol (Vitamin D3) 5,000 unit PO DAILY@1200 01/25/17 [Vitamin D3] [place]-3 Fatty Acids/Fish Oil [Fish 2,000 mg PO DAILY 03/21/18 Oil 1,000 mg Capsule] Gabapentin 1,200 mg PO BID 08/01/18 Gabapentin [Neurontin] 600 mg PO .LUNCHTIME 08/01/18 Lisinopril [Zestril] 10 mg PO DAILY 08/01/18 Pramipexole Di-HCl [Pramipexole 1.5 tab PO DAILY 08/01/18 Dihydrochloride] Pramipexole Di-HCl [Pramipexole 3 mg PO QHS 08/01/18 Dihydrochloride] Venlafaxine HCl [Effexor Xr] 1 tab PO DAILY 08/01/18 Venlafaxine HCl [Venlafaxine HCl 1 tab PO DAILY 08/01/18 ER] Aspirin [Aspir-Low] 81 mg PO DAILY 05/02/19 Famotidine [Pepcid] 40 mg PO QHS 05/02/19 traMADol [Ultram] 50 - 100 mg PO Q6H PRN PRN 05/02/19 Ferrous Sulfate 130 mg PO DAILY 08/30/19 Folic Acid 1 mg PO DAILY 08/30/19 Montelukast [Singulair] 10 mg PO DAILY@1700 #90 tab 09/08/19 - Family History Maternal Heart Disease, Hypertension Paternal Heart Disease, Hypertension Sibling Cancer, Diabetes, Hypertension, - Smoking Status: Former smoker Review of Systems REVIEW OF SYSTEMS: Const: Reports weight change, but denies anorexia, change in appetite, fever, hard of hearing and vision problems. CV: Denies chest pain, heart murmur, irregular heartbeat and peripheral vascular disease. Resp: Reports sleep apnea, but denies asthma, cough, pneumonia, SOB, tuberculosis and wheezing. GI: Denies constipation, diarrhea, difficulty swallowing, heartburn, nausea, bloody stools and vomiting. : Urinary: reports incontinence. Musculo: Reports leg swelling, limp and weakness, but denies trouble walking. Skin: Denies Raynaud's, history of shingles and tattoo. Neuro: Reports difficulty with balance and numbness/tingling but denies ambulatory dysfunction, dizziness and tremor. Psych: Denies anxiety, depression, insomnia, mental illness and stress. Mervin/Lymph: Denies anemia, bleeding/bruising tendency and past transfusion. - Physical Exam General: Awake, alert, and oriented. HEENT: PERRL, EOMI. Throat is clear. Neck: Supple, nontender. No cervical adenopathy. Lungs: Clear to auscultation. Heart: Regular rate and rhythm. Abdomen: Soft, nondistended. Extremities: Mild swelling noted right knee. No evidence of infection. On the right knee area is a midline healed incision except for the most inferior aspect by the tibial tubercle where there is a nonhealing ulcer. Good granulation tissue seen. No evidence of infection. No tunnelling noted superiorly toward the knee joint. Measures 1.5 x 0.8 x 0.4 cm. No inguinal adenopathy. Dorsalis pedis pulses are palpable. Patient is able to flex and extend the knee Neurological: CN II-XII grossly intact. Psychiatric: Normal mood and affect. Vital Signs Temp Pulse Resp BP 97.6 F L 83 18 133/77 H 11/20/19 08:26 11/20/19 08:26 11/20/19 08:26 11/20/19 08:26 Wound Measurements and Assessment WC - Nurse 1 - General Ulcer Measurement Start: 11/20/19 08:08 Freq: Status: Active Protocol: Activity Type Activity Date Activity User E-Sign Co-Sign Detail Recorded Client Recorded Date Recorded By Document 11/20/19 08:26 PL [id number] 11/20/19 08:30 PL 11/20/19 08:26 Wound Center Nurse 1 [Ulcer Assessment] #2 Right Inferior Knee -Combined with other wound No -Current Size (cm) - Length 1.5 -Current Size (cm) - Width 0.8 -Current Size (cm) - Depth 0.4 -Total Square Cm 1.20 -Date of Last Picture (Recall this 11/20/19 field) -Photo Taken Yes -Epithelialization None Present -Tunneling No -Undermining/Tunneling No -Circular Undermining No -Classification - Thickness Full Thickness with Exposed Support Structure -Wound Margin Distinct, Outline Attached -Granulation Amt Medium (34-66%) -Granulation Quality [place] -Slough/Fibrin Yes -Necrosis Amt Medium (34-66%) -Necrotic Tissue Type Adherent Slough -Texture (Aileen-wound Skin Appearance) No Abnormality -Moisture (Aileen-wound Skin Appearance No Abnormality ) -Color (Aileen-wound Skin Appearance) No Abnormality -Temperature (Aileen-wound Skin No Abnormality Appearance) (Pt Warm) -Ulcer Cleansing Rinsed/ Irrigated with Saline -Foul Odor after Cleansing No -Anesthetic Used 4% Lidocaine Solution [Edema Assessment] -Right Calf (cm) 42 -Right Ankle (cm) 19 WC - Nurse 2 - General Ulcer CM Notes Start: 11/20/19 08:08 Freq: Status: Active Protocol: Activity Type Activity Date Activity User E-Sign Co-Sign Detail Recorded Client Recorded Date Recorded By Document 11/20/19 08:56 ALETA [id number] 11/20/19 09:01 ALETA 11/20/19 08:56 Wound Center Nurse 2 [Procedure/Treatment] #2 Right Inferior Knee -Time 08:57 -Correct Patient Yes -Correct Side, Site, Position Yes -Correct Procedure Yes -Procedure Performed Yes -Type of Procedure Debridement -Clinical Debridement Subcutaneous -Tissue Removed Subcutaneous -Post Debridement (cm) - Length 1.6 -Post Debridement (cm) - Width 1.0 -Post Debridement (cm) - Depth 1.0 -Total Square (Post) (cm) 1.60 -Area of Debridement (cm) - Length 1.6 -Area of Debridement (cm) - Width 1.0 -Total Square (Area) (cm) 1.60 -Tunneling No -Undermining/Tunneling No -Circular Undermining No -Wound/Ulcer Outcome Not Healed -Ulcer Cleansing Rinsed/ Irrigated with Saline -Foul Odor after Cleansing No -Bioengineered Tissue No -Bleeding Controlled with Pressure -Offloading No -Treatment Response Procedure Tolerated Well -Debridement - Subq, 1st 20sq cm Yes [See Physician Procedure note for Specifics] Pain Scale: 0-10 Numeric [Pain] -Is Patient Pain Free? Yes Pain Scale: FLACC [Pain Assessment] FLACC scale recommended for Pediatric Patients age 1-7 yrs -Legs Normal position , relaxed -Activity Lying quietly, Normal position , Moves easily -Cry No Cry (Awake or Asleep) -Consolability Content, Relaxed -Effectiveness of Alleviating Factor/ Completely Intervention effective - Nurse 3 - General Ulcer D/C NN Start: 11/20/19 23:22 Freq: Status: Active Protocol: Activity Type Activity Date Activity User E-Sign Co-Sign Detail Recorded Client Recorded Date Recorded By Document 11/21/19 09:50 ALETA [id number] 11/21/19 09:51 11/21/19 09:50 Wound Care Nurse 3 [Wound Dressing] #2 Right Inferior Knee -Ulcer Cleansing Rinsed/ Irrigated with Saline -Foul Odor after Cleansing No -Primary Dressing Applied Aquacel AG 2x2 -Primary Dressing Covered/Secured Dry Gauze with -Aquacel AG 2x2 1 [Compression Applied] Right -Roger Wrap(s) Yes Pain Scale: 0-10 Numeric [Pain] -Is Patient Pain Free? Yes - Visit Discharge [Visit Discharge Information] -Discharge Condition Stable -Ambulatory Status Ambulatory -Transportation Private Auto -Medication Reconcilliation completed Yes & provided to patient/care provider -Clinical Summary of Care Provided Yes Debridement Note Post-Debridement Measurements/Treatment - Nurse 2 - General Ulcer CM Notes Start: 11/20/19 08:08 Freq: Status: Active Protocol: Activity Type Activity Date Activity User E-Sign Co-Sign Detail Recorded Client Recorded Date Recorded By Document 11/20/19 08:56 ALETA [id number] 11/20/19 09:01 11/20/19 08:56 Wound Center Nurse 2 #2 Right Inferior Knee -Time 08:57 -Correct Patient Yes -Correct Side, Site, Position Yes -Correct Procedure Yes -Procedure Performed Yes -Type of Procedure Debridement -Clinical Debridement Subcutaneous -Tissue Removed Subcutaneous -Post Debridement (cm) - Length 1.6 -Post Debridement (cm) - Width 1.0 -Post Debridement (cm) - Depth 1.0 -Total Square (Post) (cm) 1.60 -Area of Debridement (cm) - Length 1.6 -Area of Debridement (cm) - Width 1.0 -Total Square (Area) (cm) 1.60 -Tunneling No -Undermining/Tunneling No -Circular Undermining No -Wound/Ulcer Outcome Not Healed -Ulcer Cleansing Rinsed/ Irrigated with Saline -Foul Odor after Cleansing No -Bioengineered Tissue No -Bleeding Controlled with Pressure -Offloading No -Treatment Response Procedure Tolerated Well -Debridement - Subq, 1st 20sq cm Yes Pain Scale: 0-10 Numeric Is Patient Pain Free? Yes Pain Scale: FLACC Legs Normal position , relaxed Activity Lying quietly, Normal position , Moves easily Cry No Cry (Awake or Asleep) Consolability Content, Relaxed Effectiveness of Alleviating Factor/ Completely Intervention effective WC - Nurse 3 - General Ulcer D/C NN Start: 11/20/19 23:22 Freq: Status: Active Protocol: Activity Type Activity Date Activity User E-Sign Co-Sign Detail Recorded Client Recorded Date Recorded By Document 11/21/19 09:50 [id number] 11/21/19 09:51 ALETA 11/21/19 09:50 Wound Care Nurse 3 #2 Right Inferior Knee -Ulcer Cleansing Rinsed/ Irrigated with Saline -Foul Odor after Cleansing No -Primary Dressing Applied Aquacel AG 2x2 -Primary Dressing Covered/Secured with Dry Gauze -Aquacel AG 2x2 1 Right -Roger Wrap(s) Yes Pain Scale: 0-10 Numeric Is Patient Pain Free? Yes WC - Visit Discharge Discharge Condition Stable Ambulatory Status Ambulatory Transportation Private Auto Medication Reconcilliation completed & Yes provided to patient/care provider Clinical Summary of Care Provided Yes Wound debrided: #2 Right inferior knee. Laterality: Right Wound Grade/Stage: 2. Type of Debridement: Excisional debridement Anesthesia Used: 4% Lidocaine Solution Depth: Down to and including healthy tissue, in the subcutaneous layer Percentage of wound debrided: 100 Instrument Used: 3mm curette Tissue Removed: subcutaneous tissue. Severity: Fat Layer Exposed Amount of bleeding with debridement: Mild Bleeding Controlled with: Pressure Patient tolerated procedure well, - - a wound culture was obtained today. Assessment/Plan Assessment: 1. Nonhealing ulcer right inferior knee by tibial tubercle. 2. History of revision replacement right knee. 3. History of right TKA infection. 4. Former smoker. Plan: Continue Silver dressing changes daily. Continue ROGER wrap for compression since there is some residual swelling in the knee. A wound culture was obtained today. A positive culture will necessitate antibiotic therapy. Will order a CT to look for residual fluid collection. Encourage nutritional supplementation with protein to help the healing process. Ideally, she will need operative debridement and local flap reconstruction. This may necessitate a bipedicled fasciocutaneous flap and skin grafting of the donor area. Hopefully there is no communication with the knee joint. If so, then she would need a muscle flap reconstruction over the knee joint with skin grafting of the muscle. Would use the gastrocnemius muscle flap. Biopsy of the bone would be done to evaluate for osteomyelitis. If present, then supplier relationship director IV antibiotics would be needed through a PICC line. Infectious Diseases has assisted with antibiotic management through this process since the first revision surgery in 01/19. Followup 2 weeks.
[2019-11-29] MEDS: dexAMETHasone 10 MG/ML Vial IV (10:57)
[2019-11-29] MEDS: Cefazolin 2 GM in 0.9% Normal Saline 100 ML IV (11:21)
--- NOTE | 2019-11-29 12:11 | PCM.OPRPT ---
Report of Operation Date of Procedure: 11/29/19 Pre-Operative Diagnosis: Draining distal wound right knee replacement Post-Operative Diagnosis: Draining distal wound right knee replacement Surgery/Procedure Performed:: Irrigation debridement with polyethylene exchange right total knee. Excision sinus tract right knee. Preliminary closure, final closure per plastics Description of Surgical Findings:: Patient's distal wound did not communicate directly with the underlying tissue. There was a small rent in the retinacular repair proximally which was draining synovial fluid causing an underlying seroma. Which eventually drained from the wound. unishear operator: Teressa Damon Type of Anesthesia:: General Anesthesiologist: Malvin Dumont Special Medications: 3 g of Ancef, 1 g vancomycin powder in the wound. Vancomycin IV Specimen's removed: 3 separate specimens were sent to microbiology Estimated Blood Loss (mL): 75 Fluids Replaced: 900 mL crystalloid Description of Procedure: 59 yo f history of r TKA in September 2019 presents with a slow healing distal authorization of the incision which eventually began to drain serous fluid. Reviewed options were discussed the patient. Based on acuity of the symptoms and organism irrigation debridement with polyethylene exchange is recommended. Risks and benefits of the procedure were discussed with the patient including but not limited to blood loss, DVTs, PEs, neurovascular damage, infection, general risk of anesthesia including loss of life. Demonstrated understanding and was able to sign informed consent. On the date of procedure patient'sR lower extremity was marked in the preoperative area. The patient was then taken back to the operating room where the patient was placed on the table in the supine position. All bony prominences were identified a well-padded. Anesthesia assumed control of the C-spine and airway and remained controlled throughout the remainder of the procedure. A tourniquet was placed on the operative thigh and the leg was prepped in a sterile fashion. The surgeon then scrubbed at this time .Upon reentering the room left lower extremity was draped in a standard orthopedic fashion. A timeout was then called and everyone agreed upon the side, the site, the procedure to be performed, patient's identity and antibiotics given. A midline skin incision was made and sharp dissection was taken down through skin subcutaneous tissue and fat. The distal portion of the incision had a draining sinus. This was excised to healthy skin edges. Appropriate flaps were elevated medially and laterally. Her arthrotomy was identified She was noted to have a 1 cm in circumference area in the retinaculum which communicate with the joint. This was proximal to the patella. The area of tissue deep to the ulceration remained healthy. No exposed bone. The standard medial parapatellar incision was made and the patella was subluxed laterally. The standard deep MCL release was done. At this point an aggressive synovectomy commenced. Our attention was first turned towards the subpatellar pouch and all suspicious synovium and tissues were debrided. We then directed our attention towards medial lateral gutters were these tissues were aggressively debrided. Knee was then flexed up the polyethylene was removed. Once polyethylene was removed we did the remainder of the synovium in the medial and lateral gutters and along the lateral structures and MCL. We then debrided the posterior knee. Knee was flexed up and culture was taken from the femoral notch. And also there was a membrane beneath the tibial baseplate that was removed and sent for culture. He had completed our synovectomy and were happy with the joint. We then used a chlorahexadine scrub sponge and physically scrub the metal implants using a scrub sponge but nothing abrasive. We also scrubbed the remainder of the wound with chlorhexidine. 6 L of normal saline were then irrigated throughout the wound with low-pressure lavage and the wound was once again explored. All remaining tissue that was suspicious was seen in the wound was once again irrigated with normal saline. 19 mm TS polyethylene was then opened and put back into place after appropriate trialing. Tourniquet was let down and hemostasis was obtained as well as possible. Lateral drain was placed in 2 g of vancomycin powder were placed in the wound/joint. Once the final components were placed the wound was copiously irrigated with normal saline solution. The wound was closed in a layer davies fashion using #1 vicryl interrupted sutures for the arthrotomy, 2-0 interrupted Vicryl for the subcuticular layer and dilip for final skin closure. A sterile compressive dressing was then placed. The patient was then awakened from anesthesia, transferred to the [facility] and transferred to the PACU for recovery. Post op plan Patient weightbearing and motion restrictions will be per plastics who is going to do a flap. The incision was closed loosely. We will have infectious disease evaluate the patient for need for antibiotics and manage antibiotics long-term. Recommend 81 mg aspirin twice daily for DVT prophylaxis will discuss definitive DVT prophylaxis with plastics. Grafts/Implants Used: Size four 16mm TS polyethylene from [employer] - Complications NONE - Admit VTE Documentation VTE Present on Admission: No VTE Mechan Device Prophylaxis: SCD's, Thigh High BLANCA Maki VTE Pharm Prophylaxis ordered?: Yes
--- NOTE | 2019-11-29 13:44 | PN_ITS ---
Subjective: patient seen and examined. She was admitted for recurrent right knee prosthetic joint infection, with a draining knee sinus. hospitalist service was consulted for perioperative management. She had irrigation and debridement with polyethylene exchanged of the right knee with excision of sinus of the right knee. Patient had no complaints. Pain was well controlled. Vitals/I&O's: Vital Signs Temp Pulse Resp BP Pulse Ox 98.9 F 73 18 150/75 H 93 11/29/19 08:20 11/29/19 08:20 11/29/19 08:32 11/29/19 08:20 11/29/19 08:32 Oxygen Delivery Method Room Air Weight: 264 lb 5.348 oz Body Mass Index (BMI) 45.3 Finger Stick Blood Glucose 112 Intake and Output for Last 24 Hours 11/27/19 11/28/19 11/29/19 23:59 23:59 23:59 Intake Total 865 / 865 Balance 865 / 865 General: Alert, Oriented x3, Cooperative HEENT: Atraumatic, PERRLA, EOMI, Normocephalic Neck: Supple, No JVD, Negative Carotid Bruits Lungs: Clear to auscultation, Normal air movement, No rhonchi, No wheeze, No rales Cardiovascular: Regular rate, Regular Rhythm, Normal S1, No murmurs Abdomen: Bowel Sounds Present, Soft, Non Tender, Non-Distended Extremities: Capillary Refill Less than 3 Seconds, Edema - Mild erythema on the right knee. Skin: dressing over right duncan Musculoskeletal: No Tenderness to Palpation of Joints or Extremities Neurological: Cranial nerves II-XII grossly intact, Deep Tendon Reflexes 2+/4 and Symmetrical, Neuro grossly intact Psych/Mental Status: Normal Affect, Appropriate Laboratory Results 11/29/19 01:30: MRSA (PCR) Negative 11/29/19 06:15: COVID-19 (LIZ) Negative 11/29/19 06:55: WBC 8.0, RBC 5.24, Hgb 14.4, Hct 45.5, MCV 86.8, MCH 27.5, MCHC 31.6 L, RDW Std Deviation 49.2 H, RDW Coeff of Sergio 15.7 H, Plt Count 230, MPV 9.8, Immature Gran % (Auto) 0.300, Neut % (Auto) 64.0, Lymph % (Auto) 23.7, [place] % (Auto) 6.9, Eos % (Auto) 4.3, Baso % (Auto) 0.8, Absolute Neuts (auto) 5.1, Absolute Lymphs (auto) 1.89, Nucleated RBC % 0 11/29/19 06:55: TSH 2.82 11/29/19 06:55: Blood Type O POSITIVE, Antibody Screen NEGATIVE 11/29/19 06:55: PT 12.8, INR 1.0 11/29/19 06:55: Sodium 143, Potassium 3.9, Chloride 110 H, Carbon Dioxide 28.0, Anion Gap 5, BUN 15, Creatinine 0.74, Estim Creat Clear Calc 70.68, Est GFR (MDRD) Af Amer 103, Est GFR (MDRD) Non-Af 86, BUN/Creatinine Ratio 20.3 H, Glucose 112 H, Calcium 8.6, Total Bilirubin 0.40, AST 15, ALT 23, Alkaline Phosphatase 172 H, Total Protein 7.0, Albumin 3.4, Globulin 3.6, Albumin/G lobulin Ratio 0.9 11/29/19 08:15: POC Glucose 123 H Current Medications Ascorbic Acid (Vitamin C) 500 mg PO LUNCH [facility] Aspirin (Ecotrin) 81 mg PO LUNCH [facility] Cholecalciferol (Vitamin D (25mcg)) 5,000 unit PO DAILY@1200 [facility] Doxycycline Monohydrate (Doxycycline) 100 mg PO BID [facility] Last Admin: 11/28/19 22:14 Dose: Not Given Documented by: Enteral Nutritional Formula (Ensure Surgery) 237 ml PO 0600,1300,2000 [facility] Last Admin: 11/29/19 05:10 Dose: Not Given Documented by: Famotidine (Pepcid) 40 mg PO QHS [facility] Last Admin: 11/28/19 22:14 Dose: Not Given Documented by: Ferrous Sulfate (Ferrous Sulfate) 325 mg PO DAILY@1200 [facility] Gabapentin (Neurontin) 800 mg PO BID@0600,1200 [facility] Last Admin: 11/29/19 05:10 Dose: Not Given Documented by: Gabapentin (Neurontin) 1,200 mg PO QHS [facility] Last Admin: 11/28/19 22:14 Dose: Not Given Documented by: Lactated Ringer's () 1,000 mls @ 100 mls/hr IV .Q10H [facility] Last Admin: 11/29/19 03:08 Dose: 100 mls/hr Documented by: Lactated Ringer's () 1,000 mls @ 999 mls/hr IV .Q1H1M JERICA Lactated Ringer's () 1,000 mls @ 125 mls/hr IV .Q8H [facility] Insulin Human Lispro (Humalog Idaliapen (Bkc)) 1 - 6 unit SC Q4H PRN PRN; Protocol PRN Reason: BG>/= 180, SEE PROTOCOL Levothyroxine Sodium (Synthroid) 175 mcg PO DAILY@0600 [facility] Last Admin: 11/29/19 05:10 Dose: Not Given Documented by: Lisinopril (Zestril) 10 mg PO LUNCH [facility] Montelukast Sodium (Singulair) 10 mg PO QHS [facility] Last Admin: 11/28/19 22:14 Dose: Not Given Documented by: Non-Formulary Medication (Voriconazole) 200 mg PO BID [facility] [id number] Ethyl Esters (Lovaza) 2 gm PO LUNCH [facility] Pantoprazole Sodium (Protonix) 20 mg PO DAILY [facility] Pramipexole Dihydrochloride (Mirapex) 0.5 mg PO DAILY@0600 [facility] Last Admin: 11/29/19 05:10 Dose: Not Given Documented by: Pramipexole Dihydrochloride (Mirapex) 1 mg PO LUNCH JERICA Pramipexole Dihydrochloride (Mirapex) 1.5 mg PO QHS [facility] Last Admin: 11/28/19 22:14 Dose: Not Given Documented by: Tramadol HCl (Ultram) 50 - 100 mg PO Q6H PRN PRN PRN Reason: Pain (1-10) Venlafaxine HCl (Effexor Xr) 225 mg PO DAILY [facility] Medical Necessity - Tobacco Use Smoking Status: Former smoker Assessment/Plan All Active Problems Infection of right knee (Acute) Septic joint (Acute) # 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 * orthopedic surgery on board. #Hypertension; on lisinopril. BP fairly well controlled # Iron deficiency anemia: on iron supplementation # Anxiety and depression: on effexor #GERD: on pepcid # Hypothyroidism: on synthroid #history of rheumatoid arthritis * to follow up with rhemumatologist on outpatient basis * DVT prophylaxis; as per primary team, orthopedics. currently on SCDs Inpatient E&M: 88043 Subs Hosp L2
--- NOTE | 2019-11-29 15:17 | CASEMGMT ---
RN CM attempted to complete assessment several times. Patient is out of room and in surgery. RN CM will attempt again tomorrow.
--- NOTE | 2019-11-29 16:14 | PCM.PN.BLA ---
Progress Note 11/29/2019 @ 1615 Patient was admitted for recurrent right knee prosthetic joint infection, with a draining knee sinus. hospitalist service was consulted for perioperative management. She is due to have irrigation and debridement with polyethylene exchanged of the right knee with excision of sinus of the right knee. Patient was taken down to the OR very early in the morning and was therefore virtually the whole day as the surgery was going to be over 7 hours long per discussion with PACU nurse. Hospitalist did call PACU to enquire if patient was in PACU at 1600; patient was still in OR at that time and not anticipated to be out for several hours per PACU nurse. Management as per primary team orthopedics. To evaluate patient after she returned to the floor.
[2019-11-29] MEDS: Mupirocin Ointment 22gm Tube 1 APPLIC (18:30)
--- NOTE | 2019-11-29 19:11 | NURSING ---
Still down in OR at this time.
--- NOTE | 2019-11-29 19:21 | OP.PCM_ITS ---
Report of Operation Date of Procedure: 11/29/19 Pre-Operative Diagnosis: 1. Nonhealing ulcer right inferior knee by tibial tubercle. 2. History of revision replacement right knee. 3. History of right TKA infection. 4. Former smoker. Post-Operative Diagnosis: 1. Nonhealing ulcer right inferior knee by tibial tubercle. 2. History of revision replacement right knee. 3. History of right TKA infection. 4. Former smoker. 5. Sural nerve injury right posterior leg. Surgery/Procedure Performed:: 1. Reconstruction right inferior knee wound with right medial gastrocnemius muscular rotation flap and STSG reconstruction from right lateral abdominal wall (45 cm2) and 13 cm right superior knee wound complex secondary wound closure. 2. Epineural repair sural nerve injury right posterior leg. Description of Surgical Findings:: 59-year-old female presents with nonhealing ulcer right inferior knee. She has undergone bilateral total knee replacement surgeries in the past. Her right total knee replacement procedure was performed in 2011. She developed a right TKA infection and went to surgery on 01/26/17 where she underwent irrigation debridement right knee with complete synovectomy and tibial component revision. She has been on antibiotics. She has had multiple procedures on her right knee. She underwent right knee irrigation debridement with component revision/polyethylene exchange and right knee superficial irrigation debridement of incisional ulcerations/sinus tract ?2, 1 cm x 1 cm each on 03/05/17. This was followed by removal of total knee replacement placement articulating antibiotic spacer and placement of nonbiodegradable antibiotic delivery system on 01/28/19. On 05/19/19 she underwent removal of articulating antibiotic spacer and intramedullary antibiotic dowel rods with placement of new articulating antibiotic spacer and intramedullary antibiotic dowel rods. Her last procedure was on 09/06/19 where she underwent removal articulating antibiotic spacer with revision right total knee replacement and removal nonbiodegradable antibiotic delivery systems. After the last surgery, she was placed on Doxycycline and Voriconazole. Patient was seen [facility] on 11/27/19 and there was increased drainage from the right inferior knee ulcer when pressing on the knee indicating communication with the joint. Patient is being admitted today 11/28/19 for IV antibiotics with Vancomycin in preparation for debridement of the knee with a poly exchange. This will be followed by reconstruction with a muscle flap (gastrocnemius muscle) and skin grafting. Patient was informed of the risks and complications of the procedure including alternatives to surgery. These were discussed with the patient personally. Patient voices understanding and wishes to proceed. IV Fluids - 3950 ml. Urine Output - 300 ml. I used Jose absorbable hemostat, (I used 3 vials, 2 in the right posterior leg wound and one in the right anterior knee wound). Reference Number - [id number]. Lot Number - [id number]. Expiration - May 02, 2024. Size of the skin graft over the gastrocnemius muscle flap - 9 x 5 cm. dealership general manager: Chuck Johnson. dealership general manager: Breezy Mccray. Type of Anesthesia:: General Specimen's removed: None. Drains: Gabriel x3 (2 in right posterior leg and one in right anterior knee). Estimated Blood Loss (mL): 350 ml. Fluids Replaced: 4250 ml (IV Fluids 3950 ml, Urine Output 300 ml). Description of Procedure: The patient was taken to the operating room and in the supine position, he was placed under general anesthesia and his right leg was prepped and draped in usual fashion. A tourniquet was placed on the proximal thigh. SCDs were placed for DVT prophylaxis. Perioperative antibiotics were given intravenously. Dr. Barton performed debridement of the right knee wound with a poly exchange. He was able to close the arthrotomy incision. A Hemovac drain was placed. He temporarily closed the incision with surgical clips for protection since the patient will be in the prone position for the mobilization of the right medial gastrocnemius muscle. I then came in to proceed with the muscle flap reconstruction. A Clarke catheter was then placed. For the procedure, I wore an N95 mask and wore proper eyewear protection. The patient was then placed in the prone position and the right posterior leg was prepped and draped in the usual sterile fashion. I made a longitudinal incision in the midline of the posterior leg from the distal end of the palpated gastrocnemius muscle up to the popliteal area. In this proximal area the incision was zig zagged. The incision was carried down to the fascia which was incised and the gastrocnemius muscle was seen. I made a horizontal incision in the tendinous portion of the medial head of the ga strocnemius muscle distally. The soleus muscle was seen. Patient had an abundance of varicosities with increased venous pressure and a fair amount of bleeding was seen. I controlled the bleeding with some electrocautery and gauze compression and 2-0 Silk ties and metal clips. During this time of obtaining hemostasis, there was inadvertent injury to the sural nerve between the medial and lateral gastrocnemius muscles which is not an unexpected complication injury for this surgery. The injury was recognized and the sural nerve was repaired in a perineural fashion with 7-0 Prolene simple in terrupted sutures. I used 12 sutures for the repair. I then elevated the medial gastrocnemius muscle from distal to proximal off the soleus muscle utilizing the right plane between the gastrocnemius and the soleus because of the plantaris tendon. I located the medial sural vascular pedicle which was preserved. The muscle was of sufficient bulk that I felt I didn't need to free up the muscle proximally as an island muscle flap. I proceeded to create a subcutaneous tunnel to the right knee ulcer. There was isolated adiposity along the medial knee that was excised to aid in the creation of the subcutaneous tunnel for rotation of the muscle. I created enough of a tunnel to place the muscle into in order to get the posterior incision closed. I can finish creating the subcutaneous tunnel when the patient is placed back in the supine position. I irrigated the right posterior leg wound with Irrisept 0.05% Chlorhexidine solution This was followed with saline irrigation. I sprayed Jose absorbable hemostat into the right posterior leg donor wound where the muscle was harvested. I used 2 vials. I placed two size 15 Gabriel drains through separate stab incisions inferiorly on the posterior leg to drain the posterior leg and subcutaneous tunnel where the muscle is rotated. They were secured to the skin using 3-0 nylon suture. I then closed the posterior leg wound in mul tiple layers using 2-0 Vicryl figure of eight interrupted sutures for the underlying fascia. The deep dermis and subcutaneous tissue was approximated using 3-0 Monocryl interrupted suture. The skin was approximated using 3-0 Nylon simple interrupted sutures for the zig zag portion of the incision proximally. The distal incision was closed with 3-0 V lock unidirectional barbed running subcuticular suture followed by Histoacryl skin tissue adhesive. Kerlix gauze was applied followed by ABD pads for temporary dressing. Patient was placed back in the supine position. The right knee and the right lateral abdominal wall areas were prepped and draped in the usual sterile fashion. At this portion of the procedure, I rescrubbed and regowned in a sterile fashion. The surgical clips were removed and the arthrotomy closure was seen and was intact and stable. There was some mild bleeding present that was irrigated out and hemostasis was obtained with electrocautery. I finished dissecting out the subcutaneous tunnel from the inferior aspect of the right knee wound to the previously dissected subcutaneous tunnel while the patient was prone. After completing the tunnel, the medial head of the gastrocnemius muscle was brought into the right knee wound. I made multiple incisions in the fascia to increase the length of the muscle. Another size 15 Gabriel drain was placed into the right knee wound and the remaining subcutaneous tunnel through a separate stab incision inferiorly. It was secured to the skin with 3-0 Nylon suture. I irrigated the right knee wound and subcutaneous tunnel with Irrisept 0.05% Chlorhexidine solution This was followed with saline irrigation. I sprayed Jose absorbable hemostat into the right knee wound and subcutaneous tunnel. I used one vial. I first inset the gastrocnemius muscle into the undermined areas of the right knee wound with 3-0 Vicryl figure of eight interrupted sutures involving the fascia. The sides of the muscle were secured to the skin edges with 3-0 Vicryl interrupted sutures. I closed the superior portion of the knee wound in a complex fashion with 2-0 Vicryl figure of eight interrupted sutures for the underlying fascia. The deep dermis and subcutaneous tissue was approximated with 3-0 Monocryl interrupted sutures. The skin was approximated with 3-0 Nylon vertical mattress interrupted sutures. The length of the complex closure was 13 cm. The size of the muscle flap wound to be skin grafted is 9 x 5 cm or 45 cm2. I then excised an ellipse of skin from the right lateral abdominal wall down into the subcutaneous tissue for the donor site for the skin graft. The subcutaneous tissue was removed from the undersurface of the dermis and then removed some of the deeper dermis, thus fashioning a thick split- thickness skin graft. The skin graft was then placed in saline. I then removed some of the deeper subcutaneous tissue of the right lateral abdominal wall to aid in wound closure. Hemostasis obtained using electrocautery. I closed Saul's fascia using 2-0 Vicryl nsplfu-di-aurds interrupted sutures. The deep dermis and subcutaneous tissue was approximated using 3-0 Monocryl interrupted sutures. The skin was approximated using 3-0 V lock unidirectional barbed running subcuticular suture. This was then followed by Histoacryl skin tissue adhesive. I took the skin graft and placed it on stretch and meshed with a 15 blade. I placed the split-thickness skin graft over the gastrocnemius muscle. I then placed the split-thickness skin graft on top of the muscle and secured the skin graft to the skin edge using 4-0 chromic simple interrupted sutures. 4-0 chromic suturing was also used for central quilting stabilization. The muscle flap was pink and viable with good bleeding during the placement of the skin graft. Bactroban ointment was applied to the skin graft followed by Xeroform gauze nonadherent dressing. Antibiotic ointment was applied to superior knee suture line followed by Xeroform gauze. Kerlix gauze dressing was applied to the skin graft and suture line followed by ABD pads. The Kerlix gauze dressing and ABD pads were reapplied to the right posterior leg incision. I placed a compression brandon wrap around the leg and a compression brandon wrap around the distal thigh and superior knee area. I left a small window over the skin graft and muscle flap to aid in the ease of close observation. I may consider the use of a VAC over the skin graft over the next couple of days. It would be at a lower suction pressure of 75 mmHg to minimize pressure compromise to the underlying muscle flap. For the donor site right lateral abdominal wall , I placed a Kelix gauze followed by a compression dressing. The size of the skin graft was 9 x 5 cm or 45 square cm. A knee immobilizer was placed. The patient tolerated the procedure well and will be sent to the recovery room in satisfactory condition. She will be admitted for continued postoperative wound care. She will keep her left leg elevated for a couple of weeks during the healing process. She will maintain the knee immobilizer for up to four weeks. The drains will be removed in 10-14 days. She will continue Vancomycin and Ancef. Will have Infectious Diseases manage her antibiotic treatment retirement as she had been on Doxycycline and Voriconazole for suppression. Grafts/Implants Used: None. - Complications Right sural nerve injury that was repaired. - Admit VTE Documentation VTE Present on Admission: No VTE Mechan Device Prophylaxis: SCD's VTE Pharm Prophylaxis ordered?: Yes Surgery Charges CPT - 27897 ICD-10 - L97.912, Z96.651, T84.53xS, Z87.891 80097 L97.912, Z96.651, T84.53xS, Z87.891 41854 L97.912, Z96.651, T84.53xS, Z87.891 71756 L97.912, Z96.651, T84.53xS, Z87.891 30548 L97.912, Z96.651, T84.53xS, Z87.891 54245 S84.21xA, L97.912, Z96.651, T84.53xS, Z87.891
[2019-11-29 19:36] LABS: Bedside Glucose 193 mg/dL (70-110)
[2019-11-29] MEDS: Lactated Ringers 1,000 ML 999 ML IV (19:58)
--- NOTE | 2019-11-29 20:14 | RAD_ITS ---
STUDY: X-RAY - RIGHT KNEE REASON FOR EXAM: Female, 59 years old. right knee post op. doc didnt want knee brace removed for images TECHNIQUE: 2 view(s) of the knee. COMPARISON: Prior right knee radiographs of 09/06/2019 FINDINGS: The revised right hip arthroplasty hardware appears unchanged from the prior exam. No apparent removal of hardware or bony structure. Multiple surgical drains are positioned around the knee and/or the adjacent soft tissues. RAD/Knee 1 or 2 Views IMPRESSION: Revised hardware remains located with no apparent hardware revision or removal of osseous tissue. Numerous overlying surgical drains are placed around the knee. Electronically Signed: Ciera Arndt MD at 21:25 EDT , Service support ,
[2019-11-29] MEDS: Ipratropium/Albuterol Sulfate 3 ML AMPUL.NEB INHALATION (20:31)
[2019-11-29] MEDS: Pramipexole Di-HCl 0.5 MG Tablet 1.5 MG PO (22:24)
[2019-11-29] MEDS: Doxycycline 100 MG CAPSULE PO (22:24)
[2019-11-29] MEDS: Docusate Sodium 100 MG Capsule PO (22:24)
[2019-11-29] MEDS: Gabapentin 600 MG Tablet 1200 MG PO (22:24)
[2019-11-29] MEDS: Famotidine 20 MG Tablet 40 MG PO (22:24)
[2019-11-29] MEDS: diazePAM 5 MG Tablet PO (22:24)
[2019-11-29] MEDS: Montelukast 10 MG Tablet PO (22:24)
[2019-11-29] MEDS: Ensure Surgery 237 ML LIQUID PO (22:25)
[2019-11-29] MEDS: Cefazolin 1 GM/50 ML BAG IV (22:32)
[2019-11-30] VITALS (11 sets, daily range): BP systolic 108–137; BP diastolic 59–82; PULSE 76–97; RESP 18; TEMP 36.3–37.1; O2SAT 88–96
[2019-11-30] MEDS: oxyCODONE 5 MG Tablet PO ×3 (00:10→10:58)
[2019-11-30] MEDS: Voriconazole 200 MG Tablet PO ×3 (00:10→22:20)
[2019-11-30] MEDS: Levothyroxine 175 MCG Tablet PO (05:43)
[2019-11-30] MEDS: Gabapentin 800 MG Tablet PO ×2 (05:43→10:59)
[2019-11-30] MEDS: Acetaminophen 500 MG Tablet 1000 MG PO ×3 (05:43→22:19)
[2019-11-30] MEDS: Lactated Ringers 1,000 ML 125 ML IV (05:43)
[2019-11-30] MEDS: Ensure Surgery 237 ML LIQUID PO ×3 (05:43→19:59)
[2019-11-30] MEDS: Pramipexole Di-HCl 0.5 MG Tablet PO (05:43)
[2019-11-30] MEDS: Cefazolin 1 GM/50 ML BAG IV (05:44)
--- NOTE | 2019-11-30 06:10 | NURSING ---
Patient dangled at bedside with the assistance of the BUFFET ATTENDANT and this RN, knee immobilizer maintained, right leg remained at extension during positioning and sitting. Patient tolerated well.
[2019-11-30 06:27] LABS: Hematocrit 41.6 % (37-47); Hemoglobin 12.8 g/dL (12.0-15.0); Mean Corp Hgb Conc 30.8 g/dL (32-36); Mean Corpuscular Hgb 27.2 pg (27.0-32.0); Mean Corpuscular Volume 88.3 fL (81-99); Mean Platelet Vol. 9.7 fl (6.2-12.0); Platelet Count 234 K/mm3 (150-450); RBC Distribution Width CV 15.7 % (11.6-14.6); RBC Distribution Width SD 50.3 fl (35.1-43.9); Red Blood Count 4.71 M/mm3 (4.2-5.4); White Blood Count 15.7 K/mm3 (4.4-11.0)
[2019-11-30] MEDS: Enoxaparin 40 MG/0.4 ML Syringe SC (06:30)
[2019-11-30 07:04] LABS: Anion Gap 6 (5-15); BUN 15 mg/dL (7-18); BUN/Creat Ratio 17.9 RATIO (10-20); Calcium,Total 8.2 mg/dL (8.5-10.1); Chloride 108 mmol/L (98-107); Creatinine, Serum 0.84 mg/dL (0.55-1.02); EST Glomerular Filtration Rate 74 mL/min (>60); Est Glom Filt Rate - Afr Amer 89 mL/min (>60); Estimated Creatinine Clearance 62.27 ml/min; Glucose 148 mg/dL (74-106); Potassium 4.1 mmol/L (3.5-5.1); Prealbumin 24.7 mg/dL (20.0-40.0); Sodium Level 140 mmol/L (136-145)
--- NOTE | 2019-11-30 08:16 | PCM.HP.ID ---
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 Patient then developed recurrent sinus tract drainage and developed infection with Neetu species in March 2019 and has been on oral suppressive antibiotics with form of doxycycline plus voriconazole long-term. More recently patient has had revision of the right total knee arthroplasty in September and clinically did well. Immediately postop but then developed drainage and wound dehiscence. Patient has been on suppressive oral doxycycline plus voriconazole through this period. Patient was taken back to the operating yesterday for surgical debridement and myocutaneous flap. Operative cultures are pending. Most recent cultures from last operative specimen in September were sterile. Overall patient is clinically stable postop. 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) Nonhealing ulcer right inferior knee by tibial tubercle History of DVT (deep vein thrombosis) (Chronic) Septic arthritis of knee, right (Chronic) Hx of total knee replacement (Chronic) right Restless leg (Chronic) RENNY (obstructive sleep apnea) (Chronic) Hypothyroidism (Chronic) Diverticulosis of colon without diverticulitis (Chronic) Depression (Chronic) Postphlebitic syndrome with inflammation (Chronic) Lumbar disc disease (Chronic) History of Graves' disease (Chronic) Diabetes mellitus (Chronic) Renal insufficiency (Chronic) Presence of IVC filter (Chronic) Obesity (Chronic) Edema leg (Chronic) Leg swelling (Chronic) DVT of lower extremity (deep venous thrombosis) (Chronic) Allergies/Adverse Reactions: Allergies hydrocodone bitartrate [From Lortab] Allergy (Intermediate, Verified 09/06/19 07:31) Other lips swell, ataxia etodolac Allergy (Verified 09/06/19 07:31) Unknown misoprostol Allergy (Verified 09/06/19 07:31) Unknown celecoxib Adverse Reaction (Intermediate, Verified 09/06/19 07:31) Other heart palpitations diclofenac [Diclofenac] Adverse Reaction (Mild, Verified 09/06/19 07:31) Abd cramps/diarrhea ketorolac tromethamine [From Toradol] Adverse Reaction (Mild, Verified 09/06/19 07:31) Other balance issues metoclopramide HCl [From Reglan] Adverse Reaction (Mild, Verified 09/06/19 07:31) Other worsens restless leg atorvastatin [From Lipitor] Adverse Reaction (Verified 09/06/19 07:31) Other FACE SPASMS clindamycin Adverse Reaction (Verified 09/06/19 07:31) Mucosal lesions Home Medications: Ambulatory Orders Medication Instructions Recorded Levothyroxine [Synthroid] 175 mcg PO DAILY 09/01/13 Omeprazole [Prilosec] 20 mg PO DAILY 12/13/16 Cholecalciferol (Vitamin D3) 5,000 unit PO DAILY@1200 01/25/17 [Vitamin D3] [place]-3 Fatty Acids/Fish Oil [Fish 2,000 mg PO LUNCH 03/21/18 Oil 1,000 mg Capsule] Gabapentin 800 mg PO BID 08/01/18 Gabapentin [Neurontin] 1,200 mg PO QHS 08/01/18 Lisinopril [Zestril] 10 mg PO LUNCH 08/01/18 Pramipexole Di-HCl [Pramipexole 1 mg PO LUNCH 08/01/18 Dihydrochloride] Pramipexole Di-HCl [Pramipexole 1.5 tab PO QHS 08/01/18 Dihydrochloride] Venlafaxine HCl [Effexor Xr] 1 tab PO DAILY 08/01/18 Venlafaxine HCl [Venlafaxine HCl 1 tab PO DAILY 08/01/18 ER] Aspirin [Aspir-Low] 81 mg PO LUNCH 05/02/19 Famotidine [Pepcid] 40 mg PO QHS 05/02/19 traMADol [Ultram] 50 - 100 mg PO Q6H PRN PRN 05/02/19 Ferrous Sulfate 325 mg PO DAILY 08/30/19 Ascorbic Acid [Vitamin C] 500 mg PO LUNCH 11/28/19 Doxycycline 100 mg PO BID 11/28/19 Montelukast [Singulair] 10 mg PO QHS 11/28/19 Pramipexole Di-HCl [Mirapex] 0.5 mg PO DAILY 11/28/19 Voriconazole 200 mg PO BID 11/28/19 - Social History SMOKING STATUS:: Former smoker Vital Signs Temp Pulse Resp BP Pulse Ox 98.8 F 93 18 108/60 96 11/30/19 02:00 11/30/19 02:00 11/30/19 02:00 11/30/19 02:00 11/30/19 02:00 Oxygen Flow Rate (L/min) 2 Oxygen Delivery Method Nasal Cannula Weight: 119.9 kg Body Mass Index (BMI) 45.3 Finger Stick Blood Glucose 193 Alert responsive no acute distress lungs are clear heart exam S1-S2 abdomen soft nontender right knee postop dressings are in place Microbiology Past 72 Hours 11/29/19 11:10 Gram Stain - Final Tissue - Knee 11/29/19 11:10 Gram Stain - Final Tissue - Knee 11/29/19 11:10 Gram Stain - Final Tissue - Knee Laboratory Tests Past 24 Hrs 11/29/19 11/29/19 11/29/19 06:15 06:55 06:55 WBC RBC Hgb Hct MCV MCH MCHC RDW Std Deviation RDW Coeff of Sergio Plt Count MPV Sodium Potassium Chloride Carbon Dioxide Anion Gap BUN Creatinine Estim Creat Clear Calc Est GFR (MDRD) Af Amer Est GFR (MDRD) Non-Af BUN/Creatinine Ratio Glucose Calcium Prealbumin TSH 2.82 COVID-19 ([facility]) Negative Blood Type O POSITIVE Antibody Screen NEGATIVE 11/30/19 11/30/19 06:08 06:08 WBC 15.7 H RBC 4.71 Hgb 12.8 Hct 41.6 MCV 88.3 MCH 27.2 MCHC 30.8 L RDW Std Deviation 50.3 H RDW Coeff of Sergio 15.7 H Plt Count 234 MPV 9.7 Sodium 140 Potassium 4.1 Chloride 108 H Carbon Dioxide 26.0 Anion Gap 6 BUN 15 Creatinine 0.84 Estim Creat Clear Calc 62.27 Est GFR (MDRD) Af Amer 89 Est GFR (MDRD) Non-Af 74 BUN/Creatinine Ratio 17.9 Glucose 148 H Calcium 8.2 L Prealbumin 24.7 TSH COVID-19 ([facility]Z) Blood Type Antibody Screen - Other Studies Radiology: [] Other Studies: [] Route of nutrition/ use of supplements: [] Nutritional Intake: [] IV Site: [] Clarke Catheter: [] - Assessment/Plan Antibiotics: [] Assessment/Plan: [] Complicated right knee prosthetic joint infection with multiple different pathogens over the past 3 years and currently on doxycycline plus voriconazole. We will continue oral suppressive antibiotic therapy and closely follow the most recent cultures done yesterday in the operating room.
--- NOTE | 2019-11-30 09:08 | PCM.PN.ORT ---
Subjective: The patient was sitting in bed upon examination. Patient denies any chest pain, shortness of breath, dizziness, lightheadedness, nausea or vomiting, or calf pain. Pain is controlled on medications. No adverse overnight events. Overall patient is doing well today. Her pain is controlled on medications. Dr. Lazaro is involved with management of closure and wound. Patient currently has 3 drains for the right lower extremity. Patient is currently with knee immobilizer with no range of motion for 1 month postoperatively. Currently nonweightbearing on the right lower extremity. Infectious disease has been consulted and is following cultures. Waiting for final cultures for appropriate antibiotics. Objective: Vital signs stable and afebrile. Patient is able to plantarflex and dorsiflex actively. Sensation is intact to light touch to saphenous, sural, superficial and deep peroneal, and tibial distribution. Knee immobilizer is in place. Plastics did remove the dressing and wound was assessed. This was managed by Dr. Lazaro. There are 3 drains for the right lower extremity. Negative Homans bilaterally, negative signs and symptoms of DVT. - Physical Exam Vitals/I&O's: Vital Signs Temp Pulse Resp BP Pulse Ox 97.7 F L 84 18 116/67 93 11/30/19 08:42 11/30/19 08:42 11/30/19 08:42 11/30/19 08:42 11/30/19 08:42 Oxygen Flow Rate (L/min) 2 Oxygen Delivery Method Room Air Weight: 119.9 kg Body Mass Index (BMI) 45.3 Finger Stick Blood Glucose 193 Intake and Output for Last 24 Hours 11/28/19 11/29/19 11/30/19 23:59 23:59 23:59 Intake Total 4929.58 / 5169.58 1137.91 / 1137.91 Output Total 704 / 1244 1670 / 1670 Balance 4225.58 / 3925.58 -532.09 / -532.09 General: Alert, Oriented x3, Cooperative, No apparent distress Microbiology Past 72 Hours 11/29/19 11:10 Tissue - Knee Gram Stain - Final 11/29/19 11:10 Tissue - Knee Gram Stain - Final 11/29/19 11:10 Tissue - Knee Gram Stain - Final Laboratory Results 11/29/19 06:15: COVID-19 ([facility]Z) Negative 11/29/19 19:29: POC Glucose 193 H 11/30/19 06:08: WBC 15.7 H, RBC 4.71, Hgb 12.8, Hct 41.6, MCV 88.3, MCH 27.2, MCHC 30.8 L, RDW Std Deviation 50.3 H, RDW Coeff of Sergio 15.7 H, Plt Count 234, MPV 9.7 11/30/19 06:08: Sodium 140, Potassium 4.1, Chloride 108 H, Carbon Dioxide 26.0, Anion Gap 6, BUN 15, Creatinine 0.84, Estim Creat Clear Calc 62.27, Est GFR (MDRD) Af Amer 89, Est GFR (MDRD) Non-Af 74, BUN/Creatinine Ratio 17.9, Glucose 148 H, Calcium 8.2 L, Prealbumin 24.7 Current Medications Acetaminophen (Tylenol) 1,000 mg PO Q8 [facility] Last Admin: 11/30/19 05:43 Dose: 1,000 mg Documented by: Ascorbic Acid (Vitamin C) 500 mg PO LUNCH [facility] Last Admin: 11/29/19 18:15 Dose: Not Given Documented by: Cholecalciferol (Vitamin D (25mcg)) 5,000 unit PO DAILY@1200 [facility] Last Admin: 11/29/19 18:15 Dose: Not Given Documented by: Diazepam (Valium) 5 mg PO 4X/DAY PRN PRN PRN Reason: SPASMS Last Admin: 11/29/19 22:24 Dose: 5 mg Documented by: Docusate Sodium (Colace) 100 mg PO BID [facility] Last Admin: 11/29/19 22:24 Dose: 100 mg Documented by: Doxycycline Monohydrate (Doxycycline) 100 mg PO BID [facility] Last Admin: 11/29/19 22:24 Dose: 100 mg Documented by: Enoxaparin Sodium (Lovenox) 40 mg SC DAILY@0600 [facility] Last Admin: 11/30/19 06:30 Dose: 40 mg Documented by: Enteral Nutritional Formula (Ensure Surgery) 237 ml PO 0600,1300,2000 [facility] Last Admin: 11/30/19 05:43 Dose: 237 ml Documented by: Famotidine (Pepcid) 40 mg PO QHS [facility] Last Admin: 11/29/19 22:24 Dose: 40 mg Documented by: Ferrous Sulfate (Ferrous Sulfate) 325 mg PO DAILY@1200 [facility] Last Admin: 11/29/19 22:04 Dose: Not Given Documented by: Gabapentin (Neurontin) 800 mg PO BID@0600,1200 [facility] Last Admin: 11/30/19 05:43 Dose: 800 mg Documented by: Gabapentin (Neurontin) 1,200 mg PO QHS [facility] Last Admin: 11/29/19 22:24 Dose: 1,200 mg Documented by: Lactated Ringer's () 1,000 mls @ 125 mls/hr IV .Q8H [facility] Last Infusion: 11/30/19 06:11 Dose: 125 mls/hr Documented by: Insulin Human Lispro (Humalog Kwikpen (Bkc)) 1 - 6 unit SC Q4H PRN PRN; Protocol PRN Reason: BG>/= 180, SEE PROTOCOL Levothyroxine Sodium (Synthroid) 175 mcg PO DAILY@0600 [facility] Last Admin: 11/30/19 05:43 Dose: 175 mcg Documented by: Lisinopril (Zestril) 10 mg PO LUNCH [facility] Last Admin: 11/29/19 22:05 Dose: Not Given Documented by: Montelukast Sodium (Singulair) 10 mg PO QHS [facility] Last Admin: 11/29/19 22:24 Dose: 10 mg Documented by: Morphine Sulfate () 2 - 4 mg IV Q2H PRN PRN PRN Reason: Pain Score 6-10/10 Morphine Sulfate () 2 - 4 mg IV Q2H PRN PRN PRN Reason: Pain Score 6-10/10 Mupirocin (Bactroban) 1 applic TOPICAL DAILY [facility]; Protocol Ulgeu-9-Tcxy Ethyl Esters (Lovaza) 2 gm PO LUNCH [facility] Last Admin: 11/29/19 18:14 Dose: Not Given Documented by: Ondansetron HCl (Zofran) 4 mg IV Q8H PRN PRN PRN Reason: NAUSEA Oxycodone HCl (Oxyir) 5 - 10 mg PO Q4H PRN PRN PRN Reason: Pain Score 4-10/10 Last Admin: 11/30/19 06:32 Dose: 10 mg Documented by: Pantoprazole Sodium (Protonix) 20 mg PO DAILY [facility] Last Admin: 11/29/19 22:04 Dose: Not Given Documented by: Pramipexole Dihydrochloride (Mirapex) 0.5 mg PO DAILY@0600 [facility] Last Admin: 11/30/19 05:43 Dose: 0.5 mg Documented by: Pramipexole Dihydrochloride (Mirapex) 1 mg PO LUNCH [facility] Last Admin: 11/29/19 18:15 Dose: Not Given Documented by: Pramipexole Dihydrochloride (Mirapex) 1.5 mg PO QHS [facility] Last Admin: 11/29/19 22:24 Dose: 1.5 mg Documented by: Promethazine HCl (Phenergan) 12.5 mg IM Q6H PRN PRN; Protocol PRN Reason: NAUSEA/VOMITING Senna/Docusate Sodium (Senokot-S, Aileen-Colace) 2 tablet PO BID [facility] Last Admin: 11/29/19 22:05 Dose: Not Given Documented by: Sodium Chloride () 10 - 40 ml IV UD PRN PRN Reason: SALINE FLUSH Venlafaxine HCl (Effexor Xr) 225 mg PO DAILY [facility] Last Admin: 11/29/19 22:04 Dose: Not Given Documented by: Voriconazole (Vfend) 200 mg PO BID [facility] Last Admin: 11/30/19 00:10 Dose: 200 mg Documented by: Medical Necessity - Tobacco Use Smoking Status: Former smoker Assessment/Plan All Active Problems Infection of right knee (Acute) Septic joint (Acute) 1. S/P irrigation debridement with polyethylene exchange right total knee with excision of sinus tract. Plastic surgery also performed flap repair POD #1 2. Continue Pain Medications: Tylenol and OxyIR 3. DVT Prophylaxis: Currently on Lovenox while in hospital. Plan will be to transition to aspirin once discharge for 4 weeks for DVT prophylaxis. 4. PT/OT: Continue with knee immobilizer right knee. Currently she will be nonweightbearing and motion restrictions per plastic surgery and Dr. Lazaro. No range of motion for 1 month. Range of motion and weightbearing status will be directed by Dr. Lazaro secondary to his closure. 5. H & H: 12.8/41.6, asymptomatic 6. Reactive leukocytosis: Currently 15.7, afebrile. Patient did receive Decadron intraoperatively. 7. Encouraged Incentive Spirometry 8. Continue postoperative medical management per medicine 9. Infectious disease consultation: Appreciate input on management of antibiotics. Cultures are currently pending. 10. Disposition: Patient at this time will discuss appropriate and safe discharge home with home health versus long-term versus rehabilitation. Patient's range of motion and weightbearing restrictions are going to be directed by Dr. Lazaro secondary to his closure. Wound VAC will be placed by the wound nurse for the wound closure. Drains will be addressed and removed when appropriate. Patient will require 4-day stay to follow the wound very closely. Anticipated discharge will be on Wednesday. Case management will discuss appropriate and safe discharge.
--- NOTE | 2019-11-30 09:25 | NURSING ---
wound photo: right knee
--- NOTE | 2019-11-30 10:23 | PCM.PN.SRG ---
Subjective: Postop #1 Patient complains of incisional pain. - Physical Exam Vitals/I&O's: Vital Signs Temp Pulse Resp BP Pulse Ox 97.7 F 84 18 116/67 93 11/30/19 08:42 11/30/19 08:42 11/30/19 08:42 11/30/19 08:42 11/30/19 08:42 Oxygen Flow Rate (L/min) 2 Oxygen Delivery Method Room Air Weight: 264 lb 5.348 oz Body Mass Index (BMI) 45.3 Finger Stick Blood Glucose 193 Intake and Output for Last 24 Hours 11/29/19 Intake Total 4929.58 / 5169.58 Output Total 704 / 1244 Balance 4225.58 / 3925.58 Drainage 154 ml yesterday. General: Alert, Oriented x3 HEENT: PERRLA, EOMI Oral: Moist Mucosa Neck: Supple Abdomen: Soft, Non-Distended Skin: Ulcer/ Wound - right inferior knee wound with muscle flap and skin graft. Muscle flap is pink and viable. Some serosanguinous drainage on the gauze dressing. Skin graft shows good adherence with some evidence of vascular ingrowth. Reapplied antibiotic ointment. Will apply the VAC in a couple of days., Incision - incisions are dry and intact. Neurological: Cranial nerves II-XII grossly intact Psych/Mental Status: Normal Affect, Appropriate Microbiology Past 72 Hours 11/29/19 11:10 Tissue - Knee Gram Stain - Final 11/29/19 11:10 Tissue - Knee Wound Culture - Preliminary No growth-Final to follow 11/29/19 11:10 Tissue - Knee Gram Stain - Final 11/29/19 11:10 Tissue - Knee Wound Culture - Preliminary No growth-Final to follow 11/29/19 11:10 Tissue - Knee Gram Stain - Final 11/29/19 11:10 Tissue - Knee Wound Culture - Preliminary No growth-Final to follow Laboratory Results 11/30/19 06:08: WBC 15.7 H, RBC 4.71, Hgb 12.8, Hct 41.6, MCV 88.3, MCH 27.2, MCHC 30.8 L, RDW Std Deviation 50.3 H, RDW Coeff of Sergio 15.7 H, Plt Count 234, MPV 9.7 11/30/19 06:08: Sodium 140, Potassium 4.1, Chloride 108 H, Carbon Dioxide 26.0, Anion Gap 6, BUN 15, Creatinine 0.84, Estim Creat Clear Calc 62.27, Est GFR (MDRD) Af Amer 89, Est GFR (MDRD) Non-Af 74, BUN/Creatinine Ratio 17.9, Glucose 148 H, Calcium 8.2 L, Prealbumin 24.7 Current Medications Acetaminophen (Tylenol) 1,000 mg PO Q8 [facility] Ascorbic Acid (Vitamin C) 500 mg PO LUNCH [facility] Cholecalciferol (Vitamin D (25mcg)) 5,000 unit PO DAILY@1200 [facility] Diazepam (Valium) 5 mg PO 4X/DAY PRN PRN Docusate Sodium (Colace) 100 mg PO BID [facility] Doxycycline Monohydrate (Doxycycline) 100 mg PO BID [facility] Enoxaparin Sodium (Lovenox) 40 mg SC DAILY@0600 [facility] Enteral Nutritional Formula (Ensure Surgery) 237 ml PO 0600,1300,2000 [facility] Famotidine (Pepcid) 40 mg PO QHS [facility] Ferrous Sulfate (Ferrous Sulfate) 325 mg PO DAILY@1200 [facility] Gabapentin (Neurontin) 800 mg PO BID@0600,1200 [facility] Gabapentin (Neurontin) 1,200 mg PO QHS [facility] Insulin Human Lispro (Humalog Kwikpen (Bkc)) 1 - 6 unit SC Q4H PRN PRN; Protocol Levothyroxine Sodium (Synthroid) 175 mcg PO DAILY@0600 [facility] Lisinopril (Zestril) 10 mg PO LUNCH [facility] Montelukast Sodium (Singulair) 10 mg PO QHS [facility] Morphine Sulfate () 2 - 4 mg IV Q2H PRN Mupirocin (Bactroban) 1 applic TOPICAL DAILY [facility]; Protocol Hcirr-[id number] Ethyl Esters (Lovaza) 2 gm PO LUNCH [facility] Ondansetron HCl (Zofran) 4 mg IV Q8H PRN Oxycodone HCl (Oxyir) 5 - 10 mg PO Q4H PRN Pantoprazole Sodium (Protonix) 20 mg PO DAILY [facility] Pramipexole Dihydrochloride (Mirapex) 0.5 mg PO DAILY@0600 [facility] Pramipexole Dihydrochloride (Mirapex) 1 mg PO LUNCH [facility] Pramipexole Dihydrochloride (Mirapex) 1.5 mg PO QHS [facility] Promethazine HCl (Phenergan) 12.5 mg IM Q6H PRN PRN; Protocol Senna/Docusate Sodium (Senokot-S, Aileen-Colace) 2 tablet PO BID [facility] Venlafaxine HCl (Effexor Xr) 225 mg PO DAILY [facility] Voriconazole (Vfend) 200 mg PO BID [facility] Medical Necessity - Tobacco Use Smoking Status: Former smoker Assessment/Plan All Active Problems 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 Nonhealing ulcer right inferior knee by tibial tubercle. 2. History of revision replacement right knee. 3. History of right TKA infection. 4. Former smoker. 5. Sural nerve injury right posterior leg. 6. s/p irrigation debridement with polyethylene exchange right total knee. Excision sinus tract right knee. Preliminary closure, final closure per plastics 7. s/p reconstruction right inferior knee wound with right medial gastrocnemius muscular rotation flap and STSG reconstruction from right lateral abdominal wall (45 cm2) and 13 cm right superior knee wound complex secondary wound closure and epineural repair sural nerve injury right posterior leg. Patient has some incisional pain, but overall feels pretty good. Has some muscular spasm and some burning nerve pain. Expected with the sural nerve repair. She is already on Neurontin. Muscle flap is pink and viable. Skin graft shows good adherence with some vascular ingrowth. Reapplied antibiotic ointment over the skin graft. Will apply the VAC in a couple of days to be changed twice a week at 100 mmHg continuous suction. At the first VAC change, if there is a lot of moisture on the skin graft, will increase the suction to 125 mmHg. Hgb 12.8. Will recheck tomorrow. Drainage was 154 ml yesterday. Operative blood loss was 350 ml. Prealbumin was 24.7. Encourage nutritional supplementation with protein to help the healing process. Maintain knee brace. Continue non weight bearing. Continue Lovenox while hospitalized for up to 4 weeks. Will be discharged on Aspirin for DVT prophylaxis. Discussed with the patient her home situation. She lives alone. It may be difficult to get around without help. She may benefit from a short stay at an [facility]. She will talk with her family to see what help is available at home before making a decision. After discharge will followup [facility].
[2019-11-30] MEDS: Mupirocin Ointment 22gm Tube 1 APPLIC TOPICAL (10:42)
[2019-11-30] MEDS: Doxycycline 100 MG CAPSULE PO ×2 (10:44→21:01)
[2019-11-30] MEDS: Venlafaxine XR 75 MG Capsule 225 MG PO (10:48)
[2019-11-30] MEDS: Senna/Docusate Sodium 1 Tablet 2 TABLET PO (10:52)
[2019-11-30] MEDS: Ferrous Sulfate 325 MG Tablet PO (10:58)
[2019-11-30] MEDS: Docusate Sodium 100 MG Capsule PO ×2 (10:58→21:01)
[2019-11-30] MEDS: Pantoprazole Sodium 20 MG Tablet PO (10:58)
[2019-11-30] MEDS: Omega-3 Acid Ethyl Esters 1 GM Capsule 2 GM PO (10:59)
[2019-11-30] MEDS: Ascorbic Acid 500 MG Tablet PO (11:00)
[2019-11-30] MEDS: Lisinopril 10 MG Tablet PO (11:00)
[2019-11-30] MEDS: Pramipexole Di-HCl 1 MG Tablet PO (11:00)
--- NOTE | 2019-11-30 11:01 | PCM.PROGNOTE ---
<Reba Correa - Last Filed: 11/30/19 11:18> Subjective: Patient seen and examined. Denies fever, chills. Reports moderate right knee pain which is improved with PRN pain regimen. Denies other complaints. - Physical Exam Vitals/I&O's: Vital Signs Temp Pulse Resp BP Pulse Ox 97.7 F L 84 18 116/67 93 11/30/19 08:42 11/30/19 08:42 11/30/19 09:05 11/30/19 08:42 11/30/19 09:05 Oxygen Flow Rate (L/min) 2 Oxygen Delivery Method Room Air Weight: 264 lb 5.348 oz Body Mass Index (BMI) 45.3 Finger Stick Blood Glucose 193 Intake and Output for Last 24 Hours 11/28/19 11/29/19 11/30/19 23:59 23:59 23:59 Intake Total 4929.58 / 5169.58 1589.99 / 1589.99 Output Total 704 / 1244 1670 / 1670 Balance 4225.58 / 3925.58 -80.01 / -80.01 General: Alert, Oriented x3, Cooperative HEENT: Atraumatic, PERRLA, EOMI, Normocephalic Neck: Supple, No JVD, Negative Carotid Bruits Lungs: Clear to auscultation, Normal air movement Cardiovascular: Regular rate, No murmurs Abdomen: Bowel Sounds Present, Soft, Non Tender, Non-Distended Extremities: No clubbing, No cyanosis, No edema, Capillary Refill Less than 3 Seconds Skin: No rashes, No breakdown, - - Right knee postop dressing intact Musculoskeletal: No Tenderness to Palpation of Joints or Extremities Neurological: Cranial nerves II-XII grossly intact, Neuro grossly intact Psych/Mental Status: Normal Affect, Appropriate Microbiology Past 72 Hours 11/29/19 11:10 Tissue - Knee Gram Stain - Final 11/29/19 11:10 Tissue - Knee Wound Culture - Preliminary No growth-Final to follow 11/29/19 11:10 Tissue - Knee Gram Stain - Final 11/29/19 11:10 Tissue - Knee Wound Culture - Preliminary No growth-Final to follow 11/29/19 11:10 Tissue - Knee Gram Stain - Final 11/29/19 11:10 Tissue - Knee Wound Culture - Preliminary No growth-Final to follow Laboratory Results 11/29/19 19:29: POC Glucose 193 H 11/30/19 06:08: WBC 15.7 H, RBC 4.71, Hgb 12.8, Hct 41.6, MCV 88.3, MCH 27.2, MCHC 30.8 L, RDW Std Deviation 50.3 H, RDW Coeff of Sergio 15.7 H, Plt Count 234, MPV 9.7 11/30/19 06:08: Sodium 140, Potassium 4.1, Chloride 108 H, Carbon Dioxide 26.0, Anion Gap 6, BUN 15, Creatinine 0.84, Estim Creat Clear Calc 62.27, Est GFR (MDRD) Af Amer 89, Est GFR (MDRD) Non-Af 74, BUN/Creatinine Ratio 17.9, Glucose 148 H, Calcium 8.2 L, Prealbumin 24.7 Current Medications Acetaminophen (Tylenol) 1,000 mg PO Q8 [facility] Last Admin: 11/30/19 05:43 Dose: 1,000 mg Documented by: Ascorbic Acid (Vitamin C) 500 mg PO LUNCH [facility] Last Admin: 11/29/19 18:15 Dose: Not Given Documented by: Cholecalciferol (Vitamin D (25mcg)) 5,000 unit PO DAILY@1200 [facility] Last Admin: 11/29/19 18:15 Dose: Not Given Documented by: Diazepam (Valium) 5 mg PO 4X/DAY PRN PRN PRN Reason: SPASMS Last Admin: 11/29/19 22:24 Dose: 5 mg Documented by: Docusate Sodium (Colace) 100 mg PO BID [facility] Last Admin: 11/29/19 22:24 Dose: 100 mg Documented by: Doxycycline Monohydrate (Doxycycline) 100 mg PO BID [facility] Last Admin: 11/30/19 10:44 Dose: 100 mg Documented by: Enoxaparin Sodium (Lovenox) 40 mg SC DAILY@0600 [facility] Last Admin: 11/30/19 06:30 Dose: 40 mg Documented by: Enteral Nutritional Formula (Ensure Surgery) 237 ml PO 0600,1300,2000 [facility] Last Admin: 11/30/19 05:43 Dose: 237 ml Documented by: Famotidine (Pepcid) 40 mg PO QHS [facility] Last Admin: 11/29/19 22:24 Dose: 40 mg Documented by: Ferrous Sulfate (Ferrous Sulfate) 325 mg PO DAILY@1200 [facility] Last Admin: 11/29/19 22:04 Dose: Not Given Documented by: Gabapentin (Neurontin) 800 mg PO BID@0600,1200 [facility] Last Admin: 11/30/19 05:43 Dose: 800 mg Documented by: Gabapentin (Neurontin) 1,200 mg PO QHS [facility] Last Admin: 11/29/19 22:24 Dose: 1,200 mg Documented by: Insulin Human Lispro (Humalog Kwikpen (Bkc)) 1 - 6 unit SC Q4H PRN PRN; Protocol PRN Reason: BG>/= 180, SEE PROTOCOL Levothyroxine Sodium (Synthroid) 175 mcg PO DAILY@0600 [facility] Last Admin: 11/30/19 05:43 Dose: 175 mcg Documented by: Lisinopril (Zestril) 10 mg PO LUNCH [facility] Last Admin: 11/29/19 22:05 Dose: Not Given Documented by: Montelukast Sodium (Singulair) 10 mg PO QHS [facility] Last Admin: 11/29/19 22:24 Dose: 10 mg Documented by: Morphine Sulfate () 2 - 4 mg IV Q2H PRN PRN PRN Reason: Pain Score 6-10/10 Morphine Sulfate () 2 - 4 mg IV Q2H PRN PRN PRN Reason: Pain Score 6-10/10 Mupirocin (Bactroban) 1 applic TOPICAL DAILY [facility]; Protocol Last Admin: 11/30/19 10:42 Dose: 1 each Documented by: Kqiua-8-Iihy Ethyl Esters (Lovaza) 2 gm PO LUNCH [facility] Last Admin: 11/29/19 18:14 Dose: Not Given Documented by: Ondansetron HCl (Zofran) 4 mg IV Q8H PRN PRN PRN Reason: NAUSEA Oxycodone HCl (Oxyir) 5 - 10 mg PO Q4H PRN PRN PRN Reason: Pain Score 4-10/10 Last Admin: 11/30/19 06:32 Dose: 10 mg Documented by: Pantoprazole Sodium (Protonix) 20 mg PO DAILY [facility] Last Admin: 11/29/19 22:04 Dose: Not Given Documented by: Pramipexole Dihydrochloride (Mirapex) 0.5 mg PO DAILY@0600 [facility] Last Admin: 11/30/19 05:43 Dose: 0.5 mg Documented by: Pramipexole Dihydrochloride (Mirapex) 1 mg PO LUNCH [facility] Last Admin: 11/29/19 18:15 Dose: Not Given Documented by: Pramipexole Dihydrochloride (Mirapex) 1.5 mg PO QHS [facility] Last Admin: 11/29/19 22:24 Dose: 1.5 mg Documented by: Promethazine HCl (Phenergan) 12.5 mg IM Q6H PRN PRN; Protocol PRN Reason: NAUSEA/VOMITING Senna/Docusate Sodium (Senokot-S, Aileen-Colace) 2 tablet PO BID [facility] Last Admin: 11/30/19 10:52 Dose: 2 tablet Documented by: Sodium Chloride () 10 - 40 ml IV UD PRN PRN Reason: SALINE FLUSH Venlafaxine HCl (Effexor Xr) 225 mg PO DAILY [facility] Last Admin: 11/30/19 10:48 Dose: 225 mg Documented by: Voriconazole (Vfend) 200 mg PO BID [facility] Last Admin: 11/30/19 10:48 Dose: 200 mg Documented by: Medical Necessity - Tobacco Use Smoking Status: Former smoker Assessment/Plan All Active Problems Infection of right knee (Acute) Septic joint (Acute) 1. 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 Barton. History of multiple surgeries on right knee. 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 Previous cultures January 2019 grew Neetu parapsilosis, Enterobacter and staph aureus. ID consulted. Management per ortho. Patient is on chronic suppressive antibiotic therapy. Plan to continue doxycycline and Vfend pending repeat cultures. Wound RN consult. 2. Hypertension-stable, continue lisinopril regimen. 3. Rheumatoid arthritis-previously on Plaquenil. No longer taking. 4. Hypothyroidism-continue Synthroid regimen. 5. Depression/anxiety-continue Effexor. 6. GERD/history of ulcer-continue famotidine. 7. 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 Previously on Xarelto which treatment has since completed. 8. RENNY-continue CPAP regimen. 9. Chronic COPD-patient reports very mild with no history of exacerbation. As needed albuterol aerosol. 10. Morbid obesity-encouraged diet and lifestyle medications. DVT prophylaxis-Lovenox Discharge planning: SNF versus home with home health at discharge. Patient will likely not be ready for discharge until Wednesday due to need for close monitoring of wound and pending cultures. This patient was seen by MERISSA Griggs under the supervision of Dr. Juarez. <AnnLinda Teresita - Last Filed: 11/30/19 13:58> - Physical Exam Vitals/I&O's: Vital Signs Temp Pulse Resp BP Pulse Ox 97.7 F L 84 18 116/67 93 11/30/19 08:42 11/30/19 08:42 11/30/19 09:05 11/30/19 08:42 11/30/19 09:05 Oxygen Flow Rate (L/min) 2 Oxygen Delivery Method Room Air Weight: 264 lb 5.348 oz Body Mass Index (BMI) 45.3 Finger Stick Blood Glucose 193 Intake and Output for Last 24 Hours 11/28/19 11/29/19 11/30/19 23:59 23:59 23:59 Intake Total 4929.58 / 5169.58 2239.99 / 2239.99 Output Total 704 / 1244 2700 / 2700 Balance 4225.58 / 3925.58 -460.01 / -460.01 Microbiology Past 72 Hours 11/29/19 11:10 Tissue - Knee Gram Stain - Final 11/29/19 11:10 Tissue - Knee Wound Culture - Preliminary No growth-Final to follow 11/29/19 11:10 Tissue - Knee Gram Stain - Final 11/29/19 11:10 Tissue - Knee Wound Culture - Preliminary No growth-Final to follow 11/29/19 11:10 Tissue - Knee Gram Stain - Final 11/29/19 11:10 Tissue - Knee Wound Culture - Preliminary No growth-Final to follow Laboratory Results 11/29/19 19:29: POC Glucose 193 H 11/30/19 06:08: WBC 15.7 H, RBC 4.71, Hgb 12.8, Hct 41.6, MCV 88.3, MCH 27.2, MCHC 30.8 L, RDW Std Deviation 50.3 H, RDW Coeff of Sergio 15.7 H, Plt Count 234, MPV 9.7 11/30/19 06:08: Sodium 140, Potassium 4.1, Chloride 108 H, Carbon Dioxide 26.0, Anion Gap 6, BUN 15, Creatinine 0.84, Estim Creat Clear Calc 62.27, Est GFR (MDRD) Af Amer 89, Est GFR (MDRD) Non-Af 74, BUN/Creatinine Ratio 17.9, Glucose 148 H, Calcium 8.2 L, Prealbumin 24.7 Current Medications Acetaminophen (Tylenol) 1,000 mg PO Q8 [facility] Last Admin: 11/30/19 05:43 Dose: 1,000 mg Documented by: Ascorbic Acid (Vitamin C) 500 mg PO LUNCH [facility] Last Admin: 11/30/19 11:00 Dose: 500 mg Documented by: Cholecalciferol (Vitamin D (25mcg)) 5,000 unit PO DAILY@1200 [facility] Last Admin: 11/30/19 11:00 Dose: 5,000 unit Documented by: Diazepam (Valium) 5 mg PO 4X/DAY PRN PRN PRN Reason: SPASMS Last Admin: 11/29/19 22:24 Dose: 5 mg Documented by: Docusate Sodium (Colace) 100 mg PO BID [facility] Last Admin: 11/30/19 10:58 Dose: 100 mg Documented by: Doxycycline Monohydrate (Doxycycline) 100 mg PO BID [facility] Last Admin: 11/30/19 10:44 Dose: 100 mg Documented by: Enoxaparin Sodium (Lovenox) 40 mg SC DAILY@0600 [facility] Last Admin: 11/30/19 06:30 Dose: 40 mg Documented by: Enteral Nutritional Formula (Ensure Surgery) 237 ml PO 0600,1300,2000 [facility] Last Admin: 11/30/19 12:49 Dose: 237 ml Documented by: Famotidine (Pepcid) 40 mg PO QHS [facility] Last Admin: 11/29/19 22:24 Dose: 40 mg Documented by: Ferrous Sulfate (Ferrous Sulfate) 325 mg PO DAILY@1200 [facility] Last Admin: 11/30/19 10:58 Dose: 325 mg Documented by: Gabapentin (Neurontin) 800 mg PO BID@0600,1200 [facility] Last Admin: 11/30/19 10:59 Dose: 800 mg Documented by: Gabapentin (Neurontin) 1,200 mg PO QHS [facility] Last Admin: 11/29/19 22:24 Dose: 1,200 mg Documented by: Insulin Human Lispro (Humalog Kwikpen (Bkc)) 1 - 6 unit SC Q4H PRN PRN; Protocol PRN Reason: BG>/= 180, SEE PROTOCOL Levothyroxine Sodium (Synthroid) 175 mcg PO DAILY@0600 [facility] Last Admin: 11/30/19 05:43 Dose: 175 mcg Documented by: Lisinopril (Zestril) 10 mg PO LUNCH [facility] Last Admin: 11/30/19 11:00 Dose: 10 mg Documented by: Montelukast Sodium (Singulair) 10 mg PO QHS [facility] Last Admin: 11/29/19 22:24 Dose: 10 mg Documented by: Morphine Sulfate () 2 - 4 mg IV Q2H PRN PRN PRN Reason: Pain Score 6-10/10 Morphine Sulfate () 2 - 4 mg IV Q2H PRN PRN PRN Reason: Pain Score 6-10/10 Last Admin: 11/30/19 12:43 Dose: 4 mg Documented by: Mupirocin (Bactroban) 1 applic TOPICAL DAILY [facility]; Protocol Last Admin: 11/30/19 10:42 Dose: 1 each Documented by: Izzon-8-Lyim Ethyl Esters (Lovaza) 2 gm PO LUNCH [facility] Last Admin: 11/30/19 10:59 Dose: 2 gm Documented by: Ondansetron HCl (Zofran) 4 mg IV Q8H PRN PRN PRN Reason: NAUSEA Oxycodone HCl (Oxyir) 5 - 10 mg PO Q4H PRN PRN PRN Reason: Pain Score 4-10/10 Last Admin: 11/30/19 10:58 Dose: 10 mg Documented by: Pantoprazole Sodium (Protonix) 20 mg PO DAILY [facility] Last Admin: 11/30/19 10:58 Dose: 20 mg Documented by: Pramipexole Dihydrochloride (Mirapex) 0.5 mg PO DAILY@0600 [facility] Last Admin: 11/30/19 05:43 Dose: 0.5 mg Documented by: Pramipexole Dihydrochloride (Mirapex) 1 mg PO LUNCH [facility] Last Admin: 11/30/19 11:00 Dose: 1 mg Documented by: Pramipexole Dihydrochloride (Mirapex) 1.5 mg PO QHS [facility] Last Admin: 11/29/19 22:24 Dose: 1.5 mg Documented by: Promethazine HCl (Phenergan) 12.5 mg IM Q6H PRN PRN; Protocol PRN Reason: NAUSEA/VOMITING Senna/Docusate Sodium (Senokot-S, Aileen-Colace) 2 tablet PO BID [facility] Last Admin: 11/30/19 10:52 Dose: 2 tablet Documented by: Sodium Chloride () 10 - 40 ml IV UD PRN PRN Reason: SALINE FLUSH Last Admin: 11/30/19 12:48 Dose: 10 ml Documented by: Venlafaxine HCl (Effexor Xr) 225 mg PO DAILY [facility] Last Admin: 11/30/19 10:48 Dose: 225 mg Documented by: Voriconazole (Vfend) 200 mg PO BID [facility] Last Admin: 11/30/19 10:48 Dose: 200 mg Documented by: Assessment/Plan Patient seen by MERISSA Griggs under my supervision Patient was admitted by orthopedic surgery on account of 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 She had right knee replacement with irrigation and debridement as well as polyethylene exchange and excision of the right sinus orthopedic surgery on 11/29/2019. Patient was seen today and had no complaints. Review of signs otherwise negative. Tolerated procedure well. Labs and vitals reviewed. O/E: Vital Signs Temp Pulse Resp BP Pulse Ox 97.7 F L 84 18 116/67 93 11/30/19 08:42 11/30/19 08:42 11/30/19 09:05 11/30/19 08:42 11/30/19 09:05 General: Alert, Oriented x3, Cooperative HEENT: Atraumatic, PERRLA, EOMI, Normocephalic Neck: Supple, No JVD, Negative Carotid Bruits Lungs: Clear to auscultation, Normal air movement Cardiovascular: Regular rate, No murmurs Abdomen: Bowel Sounds Present, Soft, Non Tender, Non-Distended Extremities: No clubbing, No cyanosis, No edema, Capillary Refill Less than 3 Seconds Skin: No rashes, No breakdown, - - Right knee postop dressing intact, with multiple drains in place Musculoskeletal: No Tenderness to Palpation of Joints or Extremities Neurological: Cranial nerves II-XII grossly intact, Neuro grossly intact Psych/Mental Status: Normal Affect, Appropriate Patient currently on doxycycline and voriconazole. Will continue pending repeat cultures. ID on board. Previous cultures in 2018 grew Neetu parapsilosis and Enterobacter as well as staph aureus. 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 Currently on Lovenox for DVT prophylaxis. BBC has trended up to 15.7 after surgery. Will monitor and trend ostomy just be reactive. Rest as per MERISSA Griggs's notes which I reviewed and endorsed. Inpatient E&M: 26089 Subs Hosp L2
--- NOTE | 2019-11-30 11:20 | CASEMGMT ---
LATESHA ORTIZ Face to Face with patient for initial transition planning/care coordination assessment. LATESHA ORTIZ introduced self and role at [facility]. Patient lying in bed, alert and oriented. Patient willing to participate in assessment and is able to answer all questions appropriately. Care providers, pharmacy, and demographics verified. Patient unsure of discharge plan due to non weight bearing and working during the day. LATESHA ORTIZ discussed HHC vs SNF. Patient inquired if rehab unit woudl be appropriate, RN DIANA updated SW. Patient states she has no further needs or concerns at this time. CM to follow for discharge planning needs that may arise. PCP: Lin Specialists: Oralia, Ortho; Marley, podiatry; Tk, neurologist; Iveth, plastics; Dolores, JUSTINE Preferred Pharmacy: [facility] Insurance: [employer] Prescription Benefit: yes Living Will/HPOA: none, interested in completing, SW updated LNOK: Living Arrangements: Patient lives with in 1 story home with no steps to enter the home. Patient was independent at home prior to surgery. Transportation: DME/HHC: Patient has raised toilet, cane, walker, grab bars, cpap at home. Patient states she has had [facility] in the past. Disposition Plan: TBD pending therapy and course of treatment. Queenie HAND, RN, CM
[2019-11-30] MEDS: Morphine 4 MG/ML Syringe IV (12:43)
[2019-11-30] MEDS: 0.9% Saline Lock 10 ML Syringe IV (12:48)
--- NOTE | 2019-11-30 13:57 | CASEMGMT ---
Social Work Note STU received referral for [facility] for pt. STU placed a call to Cynthia with [facility]. Cynthia states pt's insurance will not approve RU. STU placed a call to [facility] in TCU, TCU has no beds available. STU in to speak with pt. STU introduced self and role at [facility]. Pt is alert and orientated x3. STU updated pt that pt's insurance will not approve RU. Pt states that her will be at [facility] today around 3:00pm and she will speak to him about discharge plans. Pt states that she may have some friends who may also be able to assist pt at home. STU updated RN CM. STU and RN CM to continue to follow. Queenie Philippe FLIGHT ENGINEER, CLINIC LPN
--- NOTE | 2019-11-30 14:30 | CASEMGMT ---
Social Work Note SW received referral for advanced directives. Pt completed advanced directives. Original provided back to pt and copy placed on pt's chart. Queenie Philippe PORTER BAGGAGE, DERMATOLOGY PHYSICIAN ASSISTANT
--- NOTE | 2019-11-30 16:22 | CASEMGMT ---
LATESHA ORTIZ in to discuss discharge plans with and patient. Patient and would like patient to go to [facility]. LATESHA ORTIZ called Arlette at [facility] and they will review referral and submit for precert if accepted. LATESHA ORTIZ updated STU Philippe.
[2019-11-30] MEDS: diazePAM 5 MG Tablet PO (20:04)
[2019-11-30] MEDS: Famotidine 20 MG Tablet 40 MG PO (21:01)
[2019-11-30] MEDS: Pramipexole Di-HCl 0.5 MG Tablet 1.5 MG PO (21:01)
[2019-11-30] MEDS: Gabapentin 600 MG Tablet 1200 MG PO (21:07)
[2019-11-30] MEDS: Montelukast 10 MG Tablet PO (22:20)
[2019-12-01 02:45] VITALS: BP 131/75; PULSE 77; RESP 18; TEMP 36.6; O2SAT 95
[2019-12-01] MEDS: oxyCODONE 5 MG Tablet PO (04:43)
[2019-12-01] MEDS: Pramipexole Di-HCl 0.5 MG Tablet PO (05:36)
[2019-12-01] MEDS: Acetaminophen 500 MG Tablet 1000 MG PO ×3 (05:36→21:46)
[2019-12-01] MEDS: Levothyroxine 175 MCG Tablet PO (05:36)
[2019-12-01] MEDS: Gabapentin 800 MG Tablet PO ×2 (05:37→13:13)
[2019-12-01] MEDS: Enoxaparin 40 MG/0.4 ML Syringe SC (05:38)
[2019-12-01] MEDS: Ensure Surgery 237 ML LIQUID PO ×2 (05:48→13:15)
[2019-12-01 07:06] LABS: Hematocrit 37.8 % (37-47); Hemoglobin 11.7 g/dL (12.0-15.0); Mean Corpuscular Hgb 27.1 pg (27.0-32.0); Mean Corpuscular Volume 87.5 fL (81-99); Mean Platelet Vol. 10.6 fl (6.2-12.0); Platelet Count 182 K/mm3 (150-450); RBC Distribution Width CV 15.9 % (11.6-14.6); RBC Distribution Width SD 50.9 fl (35.1-43.9); Red Blood Count 4.32 M/mm3 (4.2-5.4); White Blood Count 9.7 K/mm3 (4.4-11.0)
--- NOTE | 2019-12-01 07:07 | PCM.PN.ORT ---
Subjective: The patient was sitting in bed upon examination. Patient denies any chest pain, shortness of breath, dizziness, lightheadedness, nausea or vomiting, or calf pain. Pain is controlled on medications. No adverse overnight events. Pain is been controlled on medications. Patient is currently in the process of getting pre-CERT to go to the [facility]. Discussed with wound nurse and wound VAC will be placed today. Cultures came back preliminary results with no growth or organisms seen. Currently on oral antibiotics. Objective: Vital signs stable and afebrile. Patient is able to plantarflex and dorsiflex actively. Sensation is intact to light touch to saphenous, sural, superficial and deep peroneal, and tibial distribution. Knee immobilizer is in place. Plastics did remove the dressing and wound was assessed. This was managed by Dr. Lazaro. There are 3 drains for the right lower extremity. Hemovac drain in place: There are 4 total drains. Orthopedics drain is #2. Since November 30, 2019 there is been an output of 130 mL in Hemovac drain #2. This has been trending down over the last 3 readings. Negative Homans bilaterally, negative signs and symptoms of DVT. - Physical Exam Vitals/I&O's: Vital Signs Temp Pulse Resp BP Pulse Ox 97.9 F 77 18 131/75 H 95 12/01/19 02:45 12/01/19 02:45 12/01/19 02:45 12/01/19 02:45 12/01/19 02:45 Oxygen Flow Rate (L/min) 2 Oxygen Delivery Method Room Air Weight: 119.9 kg Body Mass Index (BMI) 45.3 Finger Stick Blood Glucose 193 Intake and Output for Last 24 Hours 11/29/19 11/30/19 12/01/19 23:59 23:59 23:59 Intake Total 4929.58 / 5169.58 3359.99 / 3359.99 450 / 450 Output Total 704 / 1244 4160 / 4160 740 / 740 Balance 4225.58 / 3925.58 -800.01 / -800.01 -290 / -290 General: Alert, Oriented x3, Cooperative, No apparent distress Microbiology Past 72 Hours 11/29/19 11:10 Tissue - Knee Gram Stain - Final 11/29/19 11:10 Tissue - Knee Wound Culture - Preliminary No growth-Final to follow 11/29/19 11:10 Tissue - Knee Gram Stain - Final 11/29/19 11:10 Tissue - Knee Wound Culture - Preliminary No growth-Final to follow 11/29/19 11:10 Tissue - Knee Gram Stain - Final 11/29/19 11:10 Tissue - Knee Wound Culture - Preliminary No growth-Final to follow Laboratory Results 12/01/19 06:20: WBC 9.7, RBC 4.32, Hgb 11.7 L, Hct 37.8, MCV 87.5, MCH 27.1, MCHC 31.0 L, RDW Std Deviation 50.9 H, RDW Coeff of Sergio 15.9 H, Plt Count 182, MPV 10.6 Current Medications Acetaminophen (Tylenol) 1,000 mg PO Q8 [facility] Last Admin: 12/01/19 05:36 Dose: 1,000 mg Documented by: Ascorbic Acid (Vitamin C) 500 mg PO LUNCH [facility] Last Admin: 11/30/19 11:00 Dose: 500 mg Documented by: Cholecalciferol (Vitamin D (25mcg)) 5,000 unit PO DAILY@1200 [facility] Last Admin: 11/30/19 11:00 Dose: 5,000 unit Documented by: Diazepam (Valium) 5 mg PO 4X/DAY PRN PRN PRN Reason: SPASMS Last Admin: 11/30/19 20:04 Dose: 5 mg Documented by: Docusate Sodium (Colace) 100 mg PO BID [facility] Last Admin: 11/30/19 21:01 Dose: 100 mg Documented by: Doxycycline Monohydrate (Doxycycline) 100 mg PO BID [facility] Last Admin: 11/30/19 21:01 Dose: 100 mg Documented by: Enoxaparin Sodium (Lovenox) 40 mg SC DAILY@0600 [facility] Last Admin: 12/01/19 05:38 Dose: 40 mg Documented by: Enteral Nutritional Formula (Ensure Surgery) 237 ml PO 0600,1300,2000 [facility] Last Admin: 12/01/19 05:48 Dose: 237 ml Documented by: Famotidine (Pepcid) 40 mg PO QHS [facility] Last Admin: 11/30/19 21:01 Dose: 40 mg Documented by: Ferrous Sulfate (Ferrous Sulfate) 325 mg PO DAILY@1200 [facility] Last Admin: 11/30/19 10:58 Dose: 325 mg Documented by: Gabapentin (Neurontin) 800 mg PO BID@0600,1200 [facility] Last Admin: 12/01/19 05:37 Dose: 800 mg Documented by: Gabapentin (Neurontin) 1,200 mg PO QHS [facility] Last Admin: 11/30/19 21:07 Dose: 1,200 mg Documented by: Insulin Human Lispro (Humalog Kwtabithapen (Bkc)) 1 - 6 unit SC Q4H PRN PRN; Protocol PRN Reason: BG>/= 180, SEE PROTOCOL Levothyroxine Sodium (Synthroid) 175 mcg PO DAILY@0600 [facility] Last Admin: 12/01/19 05:36 Dose: 175 mcg Documented by: Lisinopril (Zestril) 10 mg PO LUNCH [facility] Last Admin: 11/30/19 11:00 Dose: 10 mg Documented by: Montelukast Sodium (Singulair) 10 mg PO QHS [facility] Last Admin: 11/30/19 22:20 Dose: 10 mg Documented by: Morphine Sulfate () 2 - 4 mg IV Q2H PRN PRN PRN Reason: Pain Score 6-10/10 Morphine Sulfate () 2 - 4 mg IV Q2H PRN PRN PRN Reason: Pain Score 6-10/10 Last Admin: 11/30/19 12:43 Dose: 4 mg Documented by: Mupirocin (Bactroban) 1 applic TOPICAL DAILY [facility]; Protocol Last Admin: 11/30/19 10:42 Dose: 1 each Documented by: [id number] Ethyl Esters (Lovaza) 2 gm PO LUNCH [facility] Last Admin: 11/30/19 10:59 Dose: 2 gm Documented by: Ondansetron HCl (Zofran) 4 mg IV Q8H PRN PRN PRN Reason: NAUSEA Oxycodone HCl (Oxyir) 5 - 10 mg PO Q4H PRN PRN PRN Reason: Pain Score 4-10/10 Last Admin: 12/01/19 04:43 Dose: 5 mg Documented by: Pantoprazole Sodium (Protonix) 20 mg PO DAILY [facility] Last Admin: 11/30/19 10:58 Dose: 20 mg Documented by: Pramipexole Dihydrochloride (Mirapex) 0.5 mg PO DAILY@0600 [facility] Last Admin: 12/01/19 05:36 Dose: 0.5 mg Documented by: Pramipexole Dihydrochloride (Mirapex) 1 mg PO LUNCH [facility] Last Admin: 11/30/19 11:00 Dose: 1 mg Documented by: Pramipexole Dihydrochloride (Mirapex) 1.5 mg PO QHS [facility] Last Admin: 11/30/19 21:01 Dose: 1.5 mg Documented by: Promethazine HCl (Phenergan) 12.5 mg IM Q6H PRN PRN; Protocol PRN Reason: NAUSEA/VOMITING Senna/Docusate Sodium (Senokot-S, Aileen-Colace) 2 tablet PO BID [facility] Last Admin: 11/30/19 22:18 Dose: Not Given Documented by: Sodium Chloride () 10 - 40 ml IV UD PRN PRN Reason: SALINE FLUSH Last Admin: 11/30/19 12:48 Dose: 10 ml Documented by: Venlafaxine HCl (Effexor Xr) 225 mg PO DAILY [facility] Last Admin: 11/30/19 10:48 Dose: 225 mg Documented by: Voriconazole (Vfend) 200 mg PO BID [facility] Last Admin: 11/30/19 22:20 Dose: 200 mg Documented by: Medical Necessity - Tobacco Use Smoking Status: Former smoker Assessment/Plan All Active Problems 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 S/P irrigation debridement with polyethylene exchange right total knee with excision of sinus tract. Plastic surgery also performed flap repair POD #2 2. Continue Pain Medications: Tylenol and OxyIR 3. DVT Prophylaxis: Currently on Lovenox while in hospital. Plan will be to transition to aspirin once discharge for 4 weeks for DVT prophylaxis. 4. PT/OT: Continue with knee immobilizer right knee. Currently she will be nonweightbearing and motion restrictions per plastic surgery and Dr. Lazaro. No range of motion for 1 month. Range of motion and weightbearing status will be directed by Dr. Lazaro secondary to his closure. 5. H & H: 11.7/37.8, asymptomatic. 6. Reactive leukocytosis: Resolved, afebrile. Patient did receive Decadron intraoperatively. 7. Encouraged Incentive Spirometry 8. Continue postoperative medical management per medicine 9. Continue with Hemovac drain from orthopedic standpoint. Plan will be for removal of drain tomorrow as long as continues to trend down. 10. Infectious disease consultation: Appreciate input on management of antibiotics. Cultures Carmen findings are no growth and organisms seen. 11. Disposition: Currently waiting on pre-CERT for patient to go to the [facility]. Patient's range of motion and weightbearing restrictions are going to be directed by Dr. Lazaro secondary to his closure. Wound VAC will be placed by the wound nurse for the wound closure. Drains will be addressed and removed when appropriate. Patient will require 4-day stay to follow the wound very closely. Anticipated discharge will be on Wednesday.
[2019-12-01 08:45] VITALS: BP 106/51; PULSE 65; RESP 18; TEMP 36.4; O2SAT 99
[2019-12-01] MEDS: Doxycycline 100 MG CAPSULE PO ×2 (08:56→21:47)
[2019-12-01] MEDS: Voriconazole 200 MG Tablet PO ×2 (08:56→21:47)
[2019-12-01] MEDS: Venlafaxine XR 75 MG Capsule 225 MG PO (08:57)
[2019-12-01] MEDS: Senna/Docusate Sodium 1 Tablet 2 TABLET PO (08:57)
[2019-12-01] MEDS: Pantoprazole Sodium 20 MG Tablet PO (08:57)
--- NOTE | 2019-12-01 09:42 | PN_ITS ---
<Reba Correa - Last Filed: 12/01/19 10:04> Subjective: Patient seen and examined. Denies current complaints. Denies fever, chills. Awaiting final cultures and SNF approval. - Physical Exam Vitals/I&O's: Vital Signs Temp Pulse Resp BP Pulse Ox 97.5 F L 65 18 106/51 L 99 12/01/19 08:45 12/01/19 08:45 12/01/19 08:45 12/01/19 08:45 12/01/19 08:45 Oxygen Flow Rate (L/min) 2 Oxygen Delivery Method Room Air Weight: 264 lb 5.348 oz Body Mass Index (BMI) 45.3 Finger Stick Blood Glucose 193 Intake and Output for Last 24 Hours 11/29/19 11/30/19 12/01/19 23:59 23:59 23:59 Intake Total 4929.58 / 5169.58 3359.99 / 3359.99 450 / 450 Output Total 704 / 1244 4160 / 4160 740 / 740 Balance 4225.58 / 3925.58 -800.01 / -800.01 -290 / -290 General: Alert, Oriented x3, Cooperative HEENT: Atraumatic, PERRLA, EOMI, Normocephalic Neck: Supple, No JVD, Negative Carotid Bruits Lungs: Clear to auscultation, Normal air movement Cardiovascular: Regular rate, No murmurs Abdomen: Bowel Sounds Present, Soft, Non Tender Extremities: No clubbing, No cyanosis, No edema, Capillary Refill Less than 3 Seconds Skin: No rashes, No breakdown, - - Right knee postoperative wound, dressing/drain intact. Musculoskeletal: No Tenderness to Palpation of Joints or Extremities Neurological: Cranial nerves II-XII grossly intact, Neuro grossly intact Psych/Mental Status: Normal Affect, Appropriate Microbiology Past 72 Hours 11/29/19 11:10 Tissue - Knee Gram Stain - Final 11/29/19 11:10 Tissue - Knee Wound Culture - Preliminary No growth-Final to follow 11/29/19 11:10 Tissue - Knee Anaerobic Culture - Preliminary No growth in 48 hours. 11/29/19 11:10 Tissue - Knee Gram Stain - Final 11/29/19 11:10 Tissue - Knee Wound Culture - Preliminary No growth-Final to follow 11/29/19 11:10 Tissue - Knee Anaerobic Culture - Preliminary No growth in 48 hours. 11/29/19 11:10 Tissue - Knee Gram Stain - Final 11/29/19 11:10 Tissue - Knee Wound Culture - Preliminary No growth-Final to follow 11/29/19 11:10 Tissue - Knee Anaerobic Culture - Preliminary No growth in 48 hours. Laboratory Results 12/01/19 06:20: WBC 9.7, RBC 4.32, Hgb 11.7 L, Hct 37.8, MCV 87.5, MCH 27.1, MCHC 31.0 L, RDW Std Deviation 50.9 H, RDW Coeff of Sergio 15.9 H, Plt Count 182, MPV 10.6 Current Medications Acetaminophen (Tylenol) 1,000 mg PO Q8 [facility] Last Admin: 12/01/19 05:36 Dose: 1,000 mg Documented by: Ascorbic Acid (Vitamin C) 500 mg PO LUNCH [facility] Last Admin: 11/30/19 11:00 Dose: 500 mg Documented by: Cholecalciferol (Vitamin D (25mcg)) 5,000 unit PO DAILY@1200 [facility] Last Admin: 11/30/19 11:00 Dose: 5,000 unit Documented by: Diazepam (Valium) 5 mg PO 4X/DAY PRN PRN PRN Reason: SPASMS Last Admin: 11/30/19 20:04 Dose: 5 mg Documented by: Docusate Sodium (Colace) 100 mg PO BID [facility] Last Admin: 12/01/19 08:55 Dose: Not Given Documented by: Doxycycline Monohydrate (Doxycycline) 100 mg PO BID [facility] Last Admin: 12/01/19 08:56 Dose: 100 mg Documented by: Enoxaparin Sodium (Lovenox) 40 mg SC DAILY@0600 [facility] Last Admin: 12/01/19 05:38 Dose: 40 mg Documented by: Enteral Nutritional Formula (Ensure Surgery) 237 ml PO 0600,1300,2000 [facility] Last Admin: 12/01/19 05:48 Dose: 237 ml Documented by: Famotidine (Pepcid) 40 mg PO QHS [facility] Last Admin: 11/30/19 21:01 Dose: 40 mg Documented by: Ferrous Sulfate (Ferrous Sulfate) 325 mg PO DAILY@1200 [facility] Last Admin: 11/30/19 10:58 Dose: 325 mg Documented by: Gabapentin (Neurontin) 800 mg PO BID@0600,1200 [facility] Last Admin: 12/01/19 05:37 Dose: 800 mg Documented by: Gabapentin (Neurontin) 1,200 mg PO QHS [facility] Last Admin: 11/30/19 21:07 Dose: 1,200 mg Documented by: Insulin Human Lispro (Humalog Idaliapen (Bkc)) 1 - 6 unit SC Q4H PRN PRN; Protocol PRN Reason: BG>/= 180, SEE PROTOCOL Levothyroxine Sodium (Synthroid) 175 mcg PO DAILY@0600 [facility] Last Admin: 12/01/19 05:36 Dose: 175 mcg Documented by: Lisinopril (Zestril) 10 mg PO LUNCH [facility] Last Admin: 11/30/19 11:00 Dose: 10 mg Documented by: Montelukast Sodium (Singulair) 10 mg PO QHS [facility] Last Admin: 11/30/19 22:20 Dose: 10 mg Documented by: Morphine Sulfate () 2 - 4 mg IV Q2H PRN PRN PRN Reason: Pain Score 6-10/10 Morphine Sulfate () 2 - 4 mg IV Q2H PRN PRN PRN Reason: Pain Score 6-10/10 Last Admin: 11/30/19 12:43 Dose: 4 mg Documented by: Mupirocin (Bactroban) 1 applic TOPICAL DAILY [facility]; Protocol Last Admin: 11/30/19 10:42 Dose: 1 each Documented by: [id number] Ethyl Esters (Lovaza) 2 gm PO LUNCH [facility] Last Admin: 11/30/19 10:59 Dose: 2 gm Documented by: Ondansetron HCl (Zofran) 4 mg IV Q8H PRN PRN PRN Reason: NAUSEA Oxycodone HCl (Oxyir) 5 - 10 mg PO Q4H PRN PRN PRN Reason: Pain Score 4-10/10 Last Admin: 12/01/19 04:43 Dose: 5 mg Documented by: Pantoprazole Sodium (Protonix) 20 mg PO DAILY [facility] Last Admin: 12/01/19 08:57 Dose: 20 mg Documented by: Pramipexole Dihydrochloride (Mirapex) 0.5 mg PO DAILY@0600 [facility] Last Admin: 12/01/19 05:36 Dose: 0.5 mg Documented by: Pramipexole Dihydrochloride (Mirapex) 1 mg PO LUNCH [facility] Last Admin: 11/30/19 11:00 Dose: 1 mg Documented by: Pramipexole Dihydrochloride (Mirapex) 1.5 mg PO QHS [facility] Last Admin: 11/30/19 21:01 Dose: 1.5 mg Documented by: Promethazine HCl (Phenergan) 12.5 mg IM Q6H PRN PRN; Protocol PRN Reason: NAUSEA/VOMITING Senna/Docusate Sodium (Senokot-S, Aileen-Colace) 2 tablet PO BID [facility] Last Admin: 12/01/19 08:57 Dose: 2 tablet Documented by: Sodium Chloride () 10 - 40 ml IV UD PRN PRN Reason: SALINE FLUSH Last Admin: 11/30/19 12:48 Dose: 10 ml Documented by: Venlafaxine HCl (Effexor Xr) 225 mg PO DAILY [facility] Last Admin: 12/01/19 08:57 Dose: 225 mg Documented by: Voriconazole (Vfend) 200 mg PO BID [facility] Last Admin: 12/01/19 08:56 Dose: 200 mg Documented by: Medical Necessity - Tobacco Use Smoking Status: Former smoker Assessment/Plan All Active Problems 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 Barton and reconstruction right inferior knee wound with right medial gastrocnemius muscular rotation flap 11/29/[address] Lazaro. History of multiple surgeries on right knee. 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 Previous cultures January 2019 grew Neetu parapsilosis, Enterobacter and staph aureus. ID consulted. Management per ortho. Patient is on chronic suppressive antibiotic therapy. Plan to continue doxycycline and Vfend pending repeat cultures. Wound RN consult. 2. Hypertension-stable, continue lisinopril regimen. 3. Rheumatoid arthritis-previously on Plaquenil. No longer taking. 4. Hypothyroidism-continue Synthroid regimen. 5. Depression/anxiety-continue Effexor. 6. GERD/history of ulcer-continue famotidine. 7. 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 Previously on Xarelto which treatment has since completed. 8. RENNY-continue CPAP regimen. 9. Chronic COPD-patient reports very mild with no history of exacerbation. As needed albuterol aerosol. 10. Morbid obesity-encouraged diet and lifestyle medications. DVT prophylaxis-Lovenox Discharge planning: SN[facility] pending approval. This patient was seen by MERISSA Griggs under the supervision of Dr. Juarez. <AnnLinda Lo - Last Filed: 12/01/19 12:34> - Physical Exam Vitals/I&O's: Vital Signs Temp Pulse Resp BP Pulse Ox 97.5 F L 65 18 106/51 L 99 12/01/19 08:45 12/01/19 08:45 12/01/19 08:45 12/01/19 08:45 12/01/19 08:45 Oxygen Flow Rate (L/min) 2 Oxygen Delivery Method Room Air Weight: 264 lb 5.348 oz Body Mass Index (BMI) 45.3 Finger Stick Blood Glucose 193 Intake and Output for Last 24 Hours 11/29/19 11/30/19 12/01/19 23:59 23:59 23:59 Intake Total 4929.58 / 5169.58 3359.99 / 3359.99 450 / 450 Output Total 704 / 1244 4160 / 4160 740 / 740 Balance 4225.58 / 3925.58 -800.01 / -800.01 -290 / -290 Microbiology Past 72 Hours 11/29/19 11:10 Tissue - Knee Gram Stain - Final 11/29/19 11:10 Tissue - Knee Wound Culture - Preliminary No growth-Final to follow 11/29/19 11:10 Tissue - Knee Anaerobic Culture - Preliminary No growth in 48 hours. 11/29/19 11:10 Tissue - Knee Gram Stain - Final 11/29/19 11:10 Tissue - Knee Wound Culture - Preliminary No growth-Final to follow 11/29/19 11:10 Tissue - Knee Anaerobic Culture - Preliminary No growth in 48 hours. 11/29/19 11:10 Tissue - Knee Gram Stain - Final 11/29/19 11:10 Tissue - Knee Wound Culture - Preliminary No growth-Final to follow 11/29/19 11:10 Tissue - Knee Anaerobic Culture - Preliminary No growth in 48 hours. Laboratory Results 12/01/19 06:20: WBC 9.7, RBC 4.32, Hgb 11.7 L, Hct 37.8, MCV 87.5, MCH 27.1, MCHC 31.0 L, RDW Std Deviation 50.9 H, RDW Coeff of Sergio 15.9 H, Plt Count 182, MPV 10.6 Current Medications Acetaminophen (Tylenol) 1,000 mg PO Q8 [facility] Last Admin: 12/01/19 05:36 Dose: 1,000 mg Documented by: Ascorbic Acid (Vitamin C) 500 mg PO LUNCH [facility] Last Admin: 11/30/19 11:00 Dose: 500 mg Documented by: Cholecalciferol (Vitamin D (25mcg)) 5,000 unit PO DAILY@1200 [facility] Last Admin: 11/30/19 11:00 Dose: 5,000 unit Documented by: Diazepam (Valium) 5 mg PO 4X/DAY PRN PRN PRN Reason: SPASMS Last Admin: 11/30/19 20:04 Dose: 5 mg Documented by: Docusate Sodium (Colace) 100 mg PO BID [facility] Last Admin: 12/01/19 08:55 Dose: Not Given Documented by: Doxycycline Monohydrate (Doxycycline) 100 mg PO BID [facility] Last Admin: 12/01/19 08:56 Dose: 100 mg Documented by: Enoxaparin Sodium (Lovenox) 40 mg SC DAILY@0600 [facility] Last Admin: 12/01/19 05:38 Dose: 40 mg Documented by: Enteral Nutritional Formula (Ensure Surgery) 237 ml PO 0600,1300,2000 [facility] Last Admin: 12/01/19 05:48 Dose: 237 ml Documented by: Famotidine (Pepcid) 40 mg PO QHS [facility] Last Admin: 11/30/19 21:01 Dose: 40 mg Documented by: Ferrous Sulfate (Ferrous Sulfate) 325 mg PO DAILY@1200 [facility] Last Admin: 11/30/19 10:58 Dose: 325 mg Documented by: Gabapentin (Neurontin) 800 mg PO BID@0600,1200 [facility] Last Admin: 12/01/19 05:37 Dose: 800 mg Documented by: Gabapentin (Neurontin) 1,200 mg PO QHS [facility] Last Admin: 11/30/19 21:07 Dose: 1,200 mg Documented by: Insulin Human Lispro (Humalog Kwikpen (Bkc)) 1 - 6 unit SC Q4H PRN PRN; Protocol PRN Reason: BG>/= 180, SEE PROTOCOL Levothyroxine Sodium (Synthroid) 175 mcg PO DAILY@0600 [facility] Last Admin: 12/01/19 05:36 Dose: 175 mcg Documented by: Lisinopril (Zestril) 10 mg PO LUNCH [facility] Last Admin: 11/30/19 11:00 Dose: 10 mg Documented by: Montelukast Sodium (Singulair) 10 mg PO QHS [facility] Last Admin: 11/30/19 22:20 Dose: 10 mg Documented by: Morphine Sulfate () 2 - 4 mg IV Q2H PRN PRN PRN Reason: Pain Score 6-10/10 Morphine Sulfate () 2 - 4 mg IV Q2H PRN PRN PRN Reason: Pain Score 6-10/10 Last Admin: 11/30/19 12:43 Dose: 4 mg Documented by: Mupirocin (Bactroban) 1 applic TOPICAL DAILY [facility]; Protocol Last Admin: 11/30/19 10:42 Dose: 1 each Documented by: [id number] Ethyl Esters (Lovaza) 2 gm PO LUNCH [facility] Last Admin: 11/30/19 10:59 Dose: 2 gm Documented by: Ondansetron HCl (Zofran) 4 mg IV Q8H PRN PRN PRN Reason: NAUSEA Oxycodone HCl (Oxyir) 5 - 10 mg PO Q4H PRN PRN PRN Reason: Pain Score 4-10/10 Last Admin: 12/01/19 04:43 Dose: 5 mg Documented by: Pantoprazole Sodium (Protonix) 20 mg PO DAILY [facility] Last Admin: 12/01/19 08:57 Dose: 20 mg Documented by: Pramipexole Dihydrochloride (Mirapex) 0.5 mg PO DAILY@0600 [facility] Last Admin: 12/01/19 05:36 Dose: 0.5 mg Documented by: Pramipexole Dihydrochloride (Mirapex) 1 mg PO LUNCH [facility] Last Admin: 11/30/19 11:00 Dose: 1 mg Documented by: Pramipexole Dihydrochloride (Mirapex) 1.5 mg PO QHS [facility] Last Admin: 11/30/19 21:01 Dose: 1.5 mg Documented by: Promethazine HCl (Phenergan) 12.5 mg IM Q6H PRN PRN; Protocol PRN Reason: NAUSEA/VOMITING Senna/Docusate Sodium (Senokot-S, Aileen-Colace) 2 tablet PO BID [facility] Last Admin: 12/01/19 08:57 Dose: 2 tablet Documented by: Sodium Chloride () 10 - 40 ml IV UD PRN PRN Reason: SALINE FLUSH Last Admin: 11/30/19 12:48 Dose: 10 ml Documented by: Venlafaxine HCl (Effexor Xr) 225 mg PO DAILY [facility] Last Admin: 12/01/19 08:57 Dose: 225 mg Documented by: Voriconazole (Vfend) 200 mg PO BID [facility] Last Admin: 12/01/19 08:56 Dose: 200 mg Documented by: Assessment/Plan Patient seen by MERISSA Griggs under my supervision Patient seen and examined. She has no complaints today. Pain is well tolerated. She worked with physical therapy and was able to move from her bed to a chair with a walker successfully. She is awaiting placement. Labs and vitals reviewed. She has remained hemodynamically stable. O/E: Vital Signs Temp Pulse Resp BP Pulse Ox 97.7 F L 84 18 116/67 93 11/30/19 08:42 11/30/19 08:42 11/30/19 09:05 11/30/19 08:42 11/30/19 09:05 General: Alert, Oriented x3, Cooperative HEENT: Atraumatic, PERRLA, EOMI, Normocephalic Neck: Supple, No JVD, Negative Carotid Bruits Lungs: Clear to auscultation, Normal air movement Cardiovascular: Regular rate, No murmurs Abdomen: Bowel Sounds Present, Soft, Non Tender, Non-Distended Extremities: No clubbing, No cyanosis, No edema, Capillary Refill Less than 3 Seconds Skin: No rashes, No breakdown, - - Right knee postop dressing intact, with multiple drains in place Musculoskeletal: No Tenderness to Palpation of Joints or Extremities Neurological: Cranial nerves II-XII grossly intact, Neuro grossly intact Psych/Mental Status: Normal Affect, Appropriate Patient currently on doxycycline and voriconazole. Will continue pending repeat cultures. ID on board. WBC has trended down to 9.7. Lovenox 40 mg daily for D VT prophylaxis. Continue lisinopril and Synthroid. Rest as per Reba Sunny, FILLING AND P[employer]ING SUPERVISOR-C's notes which I reviewed and endorsed. Inpatient E&M: 98258 Subs Hosp L2
--- NOTE | 2019-12-01 10:42 | NURSING ---
Wound VAC pressure decreased to 100mmHg low continuous suction per Dr Lazaro's order.
--- NOTE | 2019-12-01 10:48 | CASEMGMT ---
Social Work Phone call from [facility] and they are able to accept pt and precert has been started with insurance. SW notified pt and she is agreeable to plan and will notify her . Plan: [facility], pending precert TRICIA Francisco
--- NOTE | 2019-12-01 12:38 | PN.ID_ITS ---
Subjective: Patient is out of bed to a chair overall clinically stable. Has a wound VAC to the right knee. Tolerating doxycycline plus voriconazole. Operative cultures remain negative at 48 hours. Objective: Alert and responsive does not appear toxic heart exam S1-S2 abdomen is obese but soft. Right knee wound vacs in place - Physical Exam Vitals/I&O's: Vital Signs Temp Pulse Resp BP Pulse Ox 97.5 F L 65 18 106/51 L 99 12/01/19 08:45 12/01/19 08:45 12/01/19 08:45 12/01/19 08:45 12/01/19 08:45 Oxygen Flow Rate (L/min) 2 Oxygen Delivery Method Room Air Weight: 119.9 kg Body Mass Index (BMI) 45.3 Finger Stick Blood Glucose 193 Intake and Output for Last 24 Hours 11/29/19 11/30/19 12/01/19 23:59 23:59 23:59 Intake Total 4929.58 / 5169.58 3359.99 / 3359.99 450 / 450 Output Total 704 / 1244 4160 / 4160 740 / 740 Balance 4225.58 / 3925.58 -800.01 / -800.01 -290 / -290 Microbiology Past 72 Hours 11/29/19 11:10 Tissue - Knee Gram Stain - Final 11/29/19 11:10 Tissue - Knee Wound Culture - Preliminary No growth-Final to follow 11/29/19 11:10 Tissue - Knee Anaerobic Culture - Preliminary No growth in 48 hours. 11/29/19 11:10 Tissue - Knee Gram Stain - Final 11/29/19 11:10 Tissue - Knee Wound Culture - Preliminary No growth-Final to follow 11/29/19 11:10 Tissue - Knee Anaerobic Culture - Preliminary No growth in 48 hours. 11/29/19 11:10 Tissue - Knee Gram Stain - Final 11/29/19 11:10 Tissue - Knee Wound Culture - Preliminary No growth-Final to follow 11/29/19 11:10 Tissue - Knee Anaerobic Culture - Preliminary No growth in 48 hours. Laboratory Results 12/01/19 06:20: WBC 9.7, RBC 4.32, Hgb 11.7 L, Hct 37.8, MCV 87.5, MCH 27.1, MCHC 31.0 L, RDW Std Deviation 50.9 H, RDW Coeff of Sergio 15.9 H, Plt Count 182, MPV 10.6 Current Medications Acetaminophen (Tylenol) 1,000 mg PO Q8 [facility] Last Admin: 12/01/19 05:36 Dose: 1,000 mg Documented by: Ascorbic Acid (Vitamin C) 500 mg PO LUNCH [facility] Last Admin: 11/30/19 11:00 Dose: 500 mg Documented by: Cholecalciferol (Vitamin D (25mcg)) 5,000 unit PO DAILY@1200 [facility] Last Admin: 11/30/19 11:00 Dose: 5,000 unit Documented by: Diazepam (Valium) 5 mg PO 4X/DAY PRN PRN PRN Reason: SPASMS Last Admin: 11/30/19 20:04 Dose: 5 mg Documented by: Docusate Sodium (Colace) 100 mg PO BID [facility] Last Admin: 12/01/19 08:55 Dose: Not Given Documented by: Doxycycline Monohydrate (Doxycycline) 100 mg PO BID [facility] Last Admin: 12/01/19 08:56 Dose: 100 mg Documented by: Enoxaparin Sodium (Lovenox) 40 mg SC DAILY@0600 [facility] Last Admin: 12/01/19 05:38 Dose: 40 mg Documented by: Enteral Nutritional Formula (Ensure Surgery) 237 ml PO 0600,1300,2000 [facility] Last Admin: 12/01/19 05:48 Dose: 237 ml Documented by: Famotidine (Pepcid) 40 mg PO QHS [facility] Last Admin: 11/30/19 21:01 Dose: 40 mg Documented by: Ferrous Sulfate (Ferrous Sulfate) 325 mg PO DAILY@1200 [facility] Last Admin: 11/30/19 10:58 Dose: 325 mg Documented by: Gabapentin (Neurontin) 800 mg PO BID@0600,1200 [facility] Last Admin: 12/01/19 05:37 Dose: 800 mg Documented by: Gabapentin (Neurontin) 1,200 mg PO QHS [facility] Last Admin: 11/30/19 21:07 Dose: 1,200 mg Documented by: Insulin Human Lispro (Humalog Kwikpen (Bkc)) 1 - 6 unit SC Q4H PRN PRN; Protocol PRN Reason: BG>/= 180, SEE PROTOCOL Levothyroxine Sodium (Synthroid) 175 mcg PO DAILY@0600 [facility] Last Admin: 12/01/19 05:36 Dose: 175 mcg Documented by: Lisinopril (Zestril) 10 mg PO LUNCH [facility] Last Admin: 11/30/19 11:00 Dose: 10 mg Documented by: Montelukast Sodium (Singulair) 10 mg PO QHS [facility] Last Admin: 11/30/19 22:20 Dose: 10 mg Documented by: Morphine Sulfate () 2 - 4 mg IV Q2H PRN PRN PRN Reason: Pain Score 6-10/10 Morphine Sulfate () 2 - 4 mg IV Q2H PRN PRN PRN Reason: Pain Score 6-10/10 Last Admin: 11/30/19 12:43 Dose: 4 mg Documented by: Mupirocin (Bactroban) 1 applic TOPICAL DAILY [facility]; Protocol Last Admin: 11/30/19 10:42 Dose: 1 each Documented by: [id number] Ethyl Esters (Lovaza) 2 gm PO LUNCH [facility] Last Admin: 11/30/19 10:59 Dose: 2 gm Documented by: Ondansetron HCl (Zofran) 4 mg IV Q8H PRN PRN PRN Reason: NAUSEA Oxycodone HCl (Oxyir) 5 - 10 mg PO Q4H PRN PRN PRN Reason: Pain Score 4-10/10 Last Admin: 12/01/19 04:43 Dose: 5 mg Documented by: Pantoprazole Sodium (Protonix) 20 mg PO DAILY [facility] Last Admin: 12/01/19 08:57 Dose: 20 mg Documented by: Pramipexole Dihydrochloride (Mirapex) 0.5 mg PO DAILY@0600 [facility] Last Admin: 12/01/19 05:36 Dose: 0.5 mg Documented by: Pramipexole Dihydrochloride (Mirapex) 1 mg PO LUNCH [facility] Last Admin: 11/30/19 11:00 Dose: 1 mg Documented by: Pramipexole Dihydrochloride (Mirapex) 1.5 mg PO QHS [facility] Last Admin: 11/30/19 21:01 Dose: 1.5 mg Documented by: Promethazine HCl (Phenergan) 12.5 mg IM Q6H PRN PRN; Protocol PRN Reason: NAUSEA/VOMITING Senna/Docusate Sodium (Senokot-S, Aileen-Colace) 2 tablet PO BID [facility] Last Admin: 12/01/19 08:57 Dose: 2 tablet Documented by: Sodium Chloride () 10 - 40 ml IV UD PRN PRN Reason: SALINE FLUSH Last Admin: 11/30/19 12:48 Dose: 10 ml Documented by: Venlafaxine HCl (Effexor Xr) 225 mg PO DAILY [facility] Last Admin: 12/01/19 08:57 Dose: 225 mg Documented by: Voriconazole (Vfend) 200 mg PO BID [facility] Last Admin: 12/01/19 08:56 Dose: 200 mg Documented by: Medical Necessity - Tobacco Use Smoking Status: Former smoker Route of nutrition/ use of supplements: [] Nutritional Intake: [] IV Site: [] Clarke Catheter: [] Complicated right knee prosthetic joint infection plan on oral suppressive antib iotics in the form of doxycycline plus voriconazole. Most recent cultures from the operating room from earlier this week remain sterile.
[2019-12-01 13:00] VITALS: BP 158/85; PULSE 80; RESP 18; TEMP 36.4; O2SAT 99
[2019-12-01] MEDS: Omega-3 Acid Ethyl Esters 1 GM Capsule 2 GM PO (13:13)
[2019-12-01] MEDS: Ferrous Sulfate 325 MG Tablet PO (13:13)
[2019-12-01] MEDS: Lisinopril 10 MG Tablet PO (13:14)
[2019-12-01] MEDS: Pramipexole Di-HCl 1 MG Tablet PO (13:14)
[2019-12-01] MEDS: Ascorbic Acid 500 MG Tablet PO (13:14)
[2019-12-01] MEDS: diazePAM 5 MG Tablet PO (13:15)
--- NOTE | 2019-12-01 14:42 | PN.SURG_ITS ---
Subjective: Postop #2 Patient has intermittent muscle spasm. VAC applied over skin graft and muscle flap. - Physical Exam Vitals/I&O's: Vital Signs Temp Pulse Resp BP Pulse Ox 97.5 F L 80 18 158/85 H 99 12/01/19 13:00 12/01/19 13:00 12/01/19 13:00 12/01/19 13:00 12/01/19 13:00 Oxygen Flow Rate (L/min) 2 Oxygen Delivery Method Room Air Weight: 264 lb 5.348 oz Body Mass Index (BMI) 45.3 Finger Stick Blood Glucose 193 Intake and Output for Last 24 Hours 11/29/19 11/30/19 12/01/19 23:59 23:59 23:59 Intake Total 4929.58 / 5169.58 3359.99 / 3359.99 450 / 450 Output Total 704 / 1244 4160 / 4160 740 / 740 Balance 4225.58 / 3925.58 -800.01 / -800.01 -290 / -290 Drainage 520 ml yesterday. General: Alert, Oriented x3 HEENT: PERRLA, EOMI Oral: Moist Mucosa Neck: Supple Abdomen: Soft, Non-Distended Skin: Ulcer/ Wound - right inferior knee wound with muscle flap and skin graft. Muscle flap is pink and viable. Some serosanguinous drainage on the gauze dressing. Skin graft shows good adherence with some evidence of vascular ingrowth. VAC was applied today at 100 mmHg over the skin graft and muscle flap. Will be changed twice a week., Incision - dry and intact. Neurological: Cranial nerves II-XII grossly intact Psych/Mental Status: Normal Affect, Appropriate Microbiology Past 72 Hours 11/29/19 11:10 Tissue - Knee Gram Stain - Final 11/29/19 11:10 Tissue - Knee Wound Culture - Preliminary No growth-Final to follow 11/29/19 11:10 Tissue - Knee Anaerobic Culture - Preliminary No growth in 48 hours. 11/29/19 11:10 Tissue - Knee Gram Stain - Final 11/29/19 11:10 Tissue - Knee Wound Culture - Preliminary No growth-Final to follow 11/29/19 11:10 Tissue - Knee Anaerobic Culture - Preliminary No growth in 48 hours. 11/29/19 11:10 Tissue - Knee Gram Stain - Final 11/29/19 11:10 Tissue - Knee Wound Culture - Preliminary No growth-Final to follow 11/29/19 11:10 Tissue - Knee Anaerobic Culture - Preliminary No growth in 48 hours. Laboratory Results 12/01/19 06:20: WBC 9.7, RBC 4.32, Hgb 11.7 L, Hct 37.8, MCV 87.5, MCH 27.1, MCHC 31.0 L, RDW Std Deviation 50.9 H, RDW Coeff of Sergio 15.9 H, Plt Count 182, MPV 10.6 Current Medications Acetaminophen (Tylenol) 1,000 mg PO Q8 [facility] Last Admin: 12/01/19 13:14 Dose: 1,000 mg Documented by: Ascorbic Acid (Vitamin C) 500 mg PO LUNCH [facility] Last Admin: 12/01/19 13:14 Dose: 500 mg Documented by: Cholecalciferol (Vitamin D (25mcg)) 5,000 unit PO DAILY@1200 [facility] Last Admin: 12/01/19 13:14 Dose: 5,000 unit Documented by: Diazepam (Valium) 5 mg PO 4X/DAY PRN PRN PRN Reason: SPASMS Last Admin: 12/01/19 13:15 Dose: 5 mg Documented by: Docusate Sodium (Colace) 100 mg PO BID [facility] Last Admin: 12/01/19 08:55 Dose: Not Given Documented by: Doxycycline Monohydrate (Doxycycline) 100 mg PO BID [facility] Last Admin: 12/01/19 08:56 Dose: 100 mg Documented by: Enoxaparin Sodium (Lovenox) 40 mg SC DAILY@0600 [facility] Last Admin: 12/01/19 05:38 Dose: 40 mg Documented by: Enteral Nutritional Formula (Ensure Surgery) 237 ml PO 0600,1300,2000 [facility] Last Admin: 12/01/19 13:15 Dose: 237 ml Documented by: Famotidine (Pepcid) 40 mg PO QHS [facility] Last Admin: 11/30/19 21:01 Dose: 40 mg Documented by: Ferrous Sulfate (Ferrous Sulfate) 325 mg PO DAILY@1200 [facility] Last Admin: 12/01/19 13:13 Dose: 325 mg Documented by: Gabapentin (Neurontin) 800 mg PO BID@0600,1200 [facility] Last Admin: 12/01/19 13:13 Dose: 800 mg Documented by: Gabapentin (Neurontin) 1,200 mg PO QHS [facility] Last Admin: 11/30/19 21:07 Dose: 1,200 mg Documented by: Insulin Human Lispro (Humalog Kwikpen (Bkc)) 1 - 6 unit SC Q4H PRN PRN; Protocol PRN Reason: BG>/= 180, SEE PROTOCOL Levothyroxine Sodium (Synthroid) 175 mcg PO DAILY@0600 [facility] Last Admin: 12/01/19 05:36 Dose: 175 mcg Documented by: Lisinopril (Zestril) 10 mg PO LUNCH [facility] Last Admin: 12/01/19 13:14 Dose: 10 mg Documented by: Montelukast Sodium (Singulair) 10 mg PO QHS [facility] Last Admin: 11/30/19 22:20 Dose: 10 mg Documented by: Morphine Sulfate () 2 - 4 mg IV Q2H PRN PRN PRN Reason: Pain Score 6-10/10 Morphine Sulfate () 2 - 4 mg IV Q2H PRN PRN PRN Reason: Pain Score 6-10/10 Last Admin: 11/30/19 12:43 Dose: 4 mg Documented by: [id number] Ethyl Esters (Lovaza) 2 gm PO LUNCH [facility] Last Admin: 12/01/19 13:13 Dose: 2 gm Documented by: Ondansetron HCl (Zofran) 4 mg IV Q8H PRN PRN PRN Reason: NAUSEA Oxycodone HCl (Oxyir) 5 - 10 mg PO Q4H PRN PRN PRN Reason: Pain Score 4-10/10 Last Admin: 12/01/19 04:43 Dose: 5 mg Documented by: Pantoprazole Sodium (Protonix) 20 mg PO DAILY [facility] Last Admin: 12/01/19 08:57 Dose: 20 mg Documented by: Pramipexole Dihydrochloride (Mirapex) 0.5 mg PO DAILY@0600 [facility] Last Admin: 12/01/19 05:36 Dose: 0.5 mg Documented by: Pramipexole Dihydrochloride (Mirapex) 1 mg PO LUNCH [facility] Last Admin: 12/01/19 13:14 Dose: 1 mg Documented by: Pramipexole Dihydrochloride (Mirapex) 1.5 mg PO QHS [facility] Last Admin: 11/30/19 21:01 Dose: 1.5 mg Documented by: Promethazine HCl (Phenergan) 12.5 mg IM Q6H PRN PRN; Protocol PRN Reason: NAUSEA/VOMITING Senna/Docusate Sodium (Senokot-S, Aileen-Colace) 2 tablet PO BID [facility] Last Admin: 12/01/19 08:57 Dose: 2 tablet Documented by: Sodium Chloride () 10 - 40 ml IV UD PRN PRN Reason: SALINE FLUSH Last Admin: 11/30/19 12:48 Dose: 10 ml Documented by: Venlafaxine HCl (Effexor Xr) 225 mg PO DAILY [facility] Last Admin: 12/01/19 08:57 Dose: 225 mg Documented by: Voriconazole (Vfend) 200 mg PO BID [facility] Last Admin: 12/01/19 08:56 Dose: 200 mg Documented by: Medical Necessity - Tobacco Use Smoking Status: Former smoker Assessment/Plan All Active Problems 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 Nonhealing ulcer right inferior knee by tibial tubercle. 2. History of revision replacement right knee. 3. History of right TKA infection. 4. Former smoker. 5. Sural nerve injury right posterior leg. 6. s/p irrigation debridement with polyethylene exchange right total knee. Excision sinus tract right knee. Preliminary closure, final closure per plastics 7. s/p reconstruction right inferior knee wound with right medial gastrocnemius muscular rotation flap and STSG reconstruction from right lateral abdominal wall (45 cm2) and 13 cm right superior knee wound complex secondary wound closure and epineural repair sural nerve injury right posterior leg. Patient has some intermittent muscle spasm, but overall feels pretty good. Has less burning nerve pain. Expected with the sural nerve repair. She is already on Neurontin. Muscle flap is pink and viable. Skin graft shows good adherence with some vascular ingrowth. VAC was applied today over the skin graft and muscle flap at 100 mmHg continuous suction. It will be changed twice a week. At the first VAC change, if there is a lot of moisture on the skin graft, will increase the suction to 125 mmHg. Operative cultures are negative thus far. Vancomycin stopped and she is presently on Doxycycline and Voriconazole. Hgb stable at 11.7. Drainage was 520 ml yesterday. Operative blood loss was 350 ml. Prealbumin was 24.7. Encourage nutritional supplementation with protein to help the healing process. Maintain knee brace. Continue non weight bearing. Continue Lovenox while hospitalized for up to 4 weeks. Will be discharged on Aspirin for DVT prophylaxis. Patient has decided to go to an ECF for a short stay after discharge until she is comfortable being at home alone. ECF evaluation in progress. After discharge [facility].
[2019-12-01 17:45] VITALS: BP 153/62; PULSE 76; RESP 18; TEMP 37; O2SAT 99
[2019-12-01 20:25] VITALS: BP 145/69; PULSE 80; RESP 18; TEMP 36.6; O2SAT 96
[2019-12-01] MEDS: Montelukast 10 MG Tablet PO (21:47)
[2019-12-01] MEDS: Gabapentin 600 MG Tablet 1200 MG PO (21:47)
[2019-12-01] MEDS: Docusate Sodium 100 MG Capsule PO (21:47)
[2019-12-01] MEDS: Pramipexole Di-HCl 0.5 MG Tablet 1.5 MG PO (21:47)
[2019-12-01] MEDS: Famotidine 20 MG Tablet 40 MG PO (21:48)
[2019-12-02 02:24] VITALS: BP 151/86; PULSE 74; RESP 18; TEMP 36.6; O2SAT 100
[2019-12-02] MEDS: Ensure Surgery 237 ML LIQUID PO ×3 (05:44→23:01)
[2019-12-02] MEDS: Gabapentin 800 MG Tablet PO ×3 (05:45→23:02)
[2019-12-02] MEDS: Enoxaparin 40 MG/0.4 ML Syringe SC (05:45)
[2019-12-02] MEDS: Acetaminophen 500 MG Tablet 1000 MG PO ×3 (05:46→23:00)
[2019-12-02] MEDS: Pramipexole Di-HCl 0.5 MG Tablet PO (05:46)
[2019-12-02] MEDS: Levothyroxine 175 MCG Tablet PO (05:47)
[2019-12-02 07:44] LABS: Hemoglobin 12.7 g/dL (12.0-15.0); Mean Corpuscular Hgb 27.3 pg (27.0-32.0); Mean Platelet Vol. 10.1 fl (6.2-12.0); Platelet Count 216 K/mm3 (150-450); RBC Distribution Width CV 15.9 % (11.6-14.6); RBC Distribution Width SD 51.2 fl (35.1-43.9); Red Blood Count 4.66 M/mm3 (4.2-5.4); White Blood Count 9.8 K/mm3 (4.4-11.0)
[2019-12-02 08:30] VITALS: BP 137/50; PULSE 70; RESP 18; TEMP 36.9; O2SAT 100
--- NOTE | 2019-12-02 08:38 | PN.ORTHO_ITS ---
Subjective: The patient was sitting in bedside chair upon examination. Patient denies any chest pain, shortness of breath, dizziness, lightheadedness, nausea or vomiting, or calf pain. Pain is controlled on medications. No adverse overnight events. Overall patient is doing well today. She has very little pain at this time. We have not yet received pre-CERT for [facility] to [facility]. 48-hour cultures have continued to be with no growth or organisms seen. She is currently on suppressive antibiotics. She has been followed closely by Dr Lazaro with regards to her flap repair. Objective: Vital signs stable and afebrile. Patient is able to plantarflex and dorsiflex actively. Sensation is intact to light touch to saphenous, sural, superficial and deep peroneal, and tibial distribution. Dressing is clean dry and intact. Hemovac drain in place with only 20 mL of output over the past 24 hours. Drain was removed today. Steri-Strip placed over incision. Compressive dressing placed. Patient's knee immobilizer was reapplied. Negative Homans bilaterally, negative signs and symptoms of DVT. - Physical Exam Vitals/I&O's: Vital Signs Temp Pulse Resp BP Pulse Ox 98 F 74 18 151/86 H 100 12/02/19 02:24 12/02/19 02:24 12/02/19 02:24 12/02/19 02:24 12/02/19 02:24 Oxygen Flow Rate (L/min) 2 Oxygen Delivery Method Room Air Weight: 119.9 kg Body Mass Index (BMI) 45.3 Finger Stick Blood Glucose 193 Intake and Output for Last 24 Hours 11/30/19 12/01/19 12/02/19 23:59 23:59 23:59 Intake Total 3359.99 / 3359.99 950 / 950 600 / 600 Output Total 4160 / 4160 2372 / 2372 940 / 940 Balance -800.01 / -800.01 -1422 / -1422 -340 / -340 General: Alert, Oriented x3, Cooperative, No apparent distress Microbiology Past 72 Hours 11/29/19 11:10 Tissue - Knee Gram Stain - Final 11/29/19 11:10 Tissue - Knee Wound Culture - Final No growth aerobically. 11/29/19 11:10 Tissue - Knee Anaerobic Culture - Preliminary No growth in 48 hours. 11/29/19 11:10 Tissue - Knee Gram Stain - Final 11/29/19 11:10 Tissue - Knee Wound Culture - Final No growth aerobically. 11/29/19 11:10 Tissue - Knee Anaerobic Culture - Preliminary No growth in 48 hours. 11/29/19 11:10 Tissue - Knee Gram Stain - Final 11/29/19 11:10 Tissue - Knee Wound Culture - Final No growth aerobically. 11/29/19 11:10 Tissue - Knee Anaerobic Culture - Preliminary No growth in 48 hours. Laboratory Results 12/02/19 06:55: WBC 9.8, RBC 4.66, Hgb 12.7, Hct 41.0, MCV 88.0, MCH 27.3, MCHC 31.0 L, RDW Std Deviation 51.2 H, RDW Coeff of Sergio 15.9 H, Plt Count 216, MPV 10.1 Current Medications Acetaminophen (Tylenol) 1,000 mg PO Q8 [facility] Last Admin: 12/02/19 05:46 Dose: 1,000 mg Documented by: Ascorbic Acid (Vitamin C) 500 mg PO LUNCH [facility] Last Admin: 12/01/19 13:14 Dose: 500 mg Documented by: Cholecalciferol (Vitamin D (25mcg)) 5,000 unit PO DAILY@1200 [facility] Last Admin: 12/01/19 13:14 Dose: 5,000 unit Documented by: Diazepam (Valium) 5 mg PO 4X/DAY PRN PRN PRN Reason: SPASMS Last Admin: 12/01/19 13:15 Dose: 5 mg Documented by: Docusate Sodium (Colace) 100 mg PO BID [facility] Last Admin: 12/01/19 21:47 Dose: 100 mg Documented by: Doxycycline Monohydrate (Doxycycline) 100 mg PO BID [facility] Last Admin: 12/01/19 21:47 Dose: 100 mg Documented by: Enoxaparin Sodium (Lovenox) 40 mg SC DAILY@0600 [facility] Last Admin: 12/02/19 05:45 Dose: 40 mg Documented by: Enteral Nutritional Formula (Ensure Surgery) 237 ml PO 0600,1300,2000 [facility] Last Admin: 12/02/19 05:44 Dose: 237 ml Documented by: Famotidine (Pepcid) 40 mg PO QHS [facility] Last Admin: 12/01/19 21:48 Dose: 40 mg Documented by: Ferrous Sulfate (Ferrous Sulfate) 325 mg PO DAILY@1200 [facility] Last Admin: 12/01/19 13:13 Dose: 325 mg Documented by: Gabapentin (Neurontin) 800 mg PO BID@0600,1200 [facility] Last Admin: 12/02/19 05:45 Dose: 800 mg Documented by: Gabapentin (Neurontin) 1,200 mg PO QHS [facility] Last Admin: 12/01/19 21:47 Dose: 1,200 mg Documented by: Insulin Human Lispro (Humalog Kwikpen (Bkc)) 1 - 6 unit SC Q4H PRN PRN; Protocol PRN Reason: BG>/= 180, SEE PROTOCOL Levothyroxine Sodium (Synthroid) 175 mcg PO DAILY@0600 [facility] Last Admin: 12/02/19 05:47 Dose: 175 mcg Documented by: Lisinopril (Zestril) 10 mg PO LUNCH [facility] Last Admin: 12/01/19 13:14 Dose: 10 mg Documented by: Montelukast Sodium (Singulair) 10 mg PO QHS [facility] Last Admin: 12/01/19 21:47 Dose: 10 mg Documented by: Morphine Sulfate () 2 - 4 mg IV Q2H PRN PRN PRN Reason: Pain Score 6-10/10 Morphine Sulfate () 2 - 4 mg IV Q2H PRN PRN PRN Reason: Pain Score 6-10/10 Last Admin: 11/30/19 12:43 Dose: 4 mg Documented by: [id number] Ethyl Esters (Lovaza) 2 gm PO LUNCH [facility] Last Admin: 12/01/19 13:13 Dose: 2 gm Documented by: Ondansetron HCl (Zofran) 4 mg IV Q8H PRN PRN PRN Reason: NAUSEA Oxycodone HCl (Oxyir) 5 - 10 mg PO Q4H PRN PRN PRN Reason: Pain Score 4-10/10 Last Admin: 12/01/19 04:43 Dose: 5 mg Documented by: Pantoprazole Sodium (Protonix) 20 mg PO DAILY [facility] Last Admin: 12/01/19 08:57 Dose: 20 mg Documented by: Pramipexole Dihydrochloride (Mirapex) 0.5 mg PO DAILY@0600 [facility] Last Admin: 12/02/19 05:46 Dose: 0.5 mg Documented by: Pramipexole Dihydrochloride (Mirapex) 1 mg PO LUNCH [facility] Last Admin: 12/01/19 13:14 Dose: 1 mg Documented by: Pramipexole Dihydrochloride (Mirapex) 1.5 mg PO QHS [facility] Last Admin: 12/01/19 21:47 Dose: 1.5 mg Documented by: Promethazine HCl (Phenergan) 12.5 mg IM Q6H PRN PRN; Protocol PRN Reason: NAUSEA/VOMITING Senna/Docusate Sodium (Senokot-S, Aileen-Colace) 2 tablet PO BID [facility] Last Admin: 12/01/19 21:43 Dose: Not Given Documented by: Sodium Chloride () 10 - 40 ml IV UD PRN PRN Reason: SALINE FLUSH Last Admin: 11/30/19 12:48 Dose: 10 ml Documented by: Venlafaxine HCl (Effexor Xr) 225 mg PO DAILY [facility] Last Admin: 12/01/19 08:57 Dose: 225 mg Documented by: Voriconazole (Vfend) 200 mg PO BID [facility] Last Admin: 12/01/19 21:47 Dose: 200 mg Documented by: Medical Necessity - Tobacco Use Smoking Status: Former smoker Assessment/Plan All Active Problems 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 S/P irrigation debridement with polyethylene exchange right total knee with excision of sinus tract. Plastic surgery also performed flap repair POD #3 2. Continue Pain Medications: Tylenol and OxyIR 3. DVT Prophylaxis: Currently on Lovenox while in hospital. Plan will be to transition to aspirin once discharge for 4 weeks for DVT prophylaxis. 4. PT/OT: Continue with knee immobilizer right knee. Currently she will be nonweightbearing and motion restrictions per plastic surgery and Dr. Lazaro. No range of motion for 1 month. Range of motion and weightbearing status will be directed by Dr. Lazaro secondary to his closure. 5. H & H: 12.7/41.0, asymptomatic. 6. Encouraged Incentive Spirometry 7. Continue postoperative medical management per medicine 8. Continue with Hemovac drain from orthopedic standpoint. 20 cc of output over the past 24 hours has occurred. Hemovac drain was removed today. Steri- Strips placed. Defer for removal of other MARIELA drains which were placed by Dr. Lazaro. 9. Infectious disease consultation: Appreciate input on management of antibiotics. Cultures Carmen findings are no growth and organisms seen. 10. Disposition: Currently waiting on pre-CERT for patient to go to the [facility]. Patient's range of motion and weightbearing restrictions are going to be directed by Dr. Lazaro secondary to his closure. Wound VAC will be placed by the wound nurse for the wound closure. Drains will be addressed and removed when appropriate. Patient will require 4-day stay to follow the wound very closely. Anticipated discharge will be on Wednesday.
[2019-12-02] MEDS: diazePAM 5 MG Tablet PO (08:45)
[2019-12-02] MEDS: oxyCODONE 5 MG Tablet PO (08:45)
[2019-12-02] MEDS: Venlafaxine XR 75 MG Capsule 225 MG PO (09:33)
[2019-12-02] MEDS: Docusate Sodium 100 MG Capsule PO ×2 (09:33→23:00)
[2019-12-02] MEDS: Doxycycline 100 MG CAPSULE PO ×2 (09:35→23:02)
[2019-12-02] MEDS: Voriconazole 200 MG Tablet PO ×2 (09:35→23:03)
[2019-12-02] MEDS: Pantoprazole Sodium 20 MG Tablet PO (09:35)
[2019-12-02] MEDS: Senna/Docusate Sodium 1 Tablet 2 TABLET PO ×2 (09:35→23:01)
--- NOTE | 2019-12-02 12:04 | PN_ITS ---
<Reba Correa - Last Filed: 12/02/19 12:15> Subjective: Patient seen and examined. Denies current complaints. Denies significant pain. Denies fever, chills. Wound cultures with no growth. Awaiting SNF approval. - Physical Exam Vitals/I&O's: Vital Signs Temp Pulse Resp BP Pulse Ox 98.5 F 70 18 137/50 H 100 12/02/19 08:30 12/02/19 08:30 12/02/19 08:30 12/02/19 08:30 12/02/19 08:30 Oxygen Flow Rate (L/min) 2 Oxygen Delivery Method Room Air Weight: 264 lb 5.348 oz Body Mass Index (BMI) 45.3 Finger Stick Blood Glucose 193 Intake and Output for Last 24 Hours 11/30/19 12/01/19 12/02/19 23:59 23:59 23:59 Intake Total 3359.99 / 3359.99 950 / 950 600 / 600 Output Total 4160 / 4160 2372 / 2372 940 / 940 Balance -800.01 / -800.01 -1422 / -1422 -340 / -340 General: Alert, Oriented x3, Cooperative HEENT: Atraumatic, PERRLA, EOMI, Normocephalic Neck: Supple, No JVD, Negative Carotid Bruits Lungs: Clear to auscultation, Normal air movement Cardiovascular: Regular rate, No murmurs Abdomen: Bowel Sounds Present, Soft, Non Tender, Non-Distended Extremities: No clubbing, No cyanosis, No edema, Capillary Refill Less than 3 Seconds Skin: No rashes, No breakdown, - - Right knee postoperative wound, dressin g/drain intact. Musculoskeletal: No Tenderness to Palpation of Joints or Extremities Neurological: Cranial nerves II-XII grossly intact, Neuro grossly intact Psych/Mental Status: Normal Affect, Appropriate Microbiology Past 72 Hours 11/29/19 11:10 Tissue - Knee Gram Stain - Final 11/29/19 11:10 Tissue - Knee Wound Culture - Final No growth aerobically. 11/29/19 11:10 Tissue - Knee Anaerobic Culture - Preliminary No growth in 48 hours. 11/29/19 11:10 Tissue - Knee Gram Stain - Final 11/29/19 11:10 Tissue - Knee Wound Culture - Final No growth aerobically. 11/29/19 11:10 Tissue - Knee Anaerobic Culture - Preliminary No growth in 48 hours. 11/29/19 11:10 Tissue - Knee Gram Stain - Final 11/29/19 11:10 Tissue - Knee Wound Culture - Final No growth aerobically. 11/29/19 11:10 Tissue - Knee Anaerobic Culture - Preliminary No growth in 48 hours. Laboratory Results 12/02/19 06:55: WBC 9.8, RBC 4.66, Hgb 12.7, Hct 41.0, MCV 88.0, MCH 27.3, MCHC 31.0 L, RDW Std Deviation 51.2 H, RDW Coeff of Sergio 15.9 H, Plt Count 216, MPV 10.1 Current Medications Acetaminophen (Tylenol) 1,000 mg PO Q8 [facility] Last Admin: 12/02/19 05:46 Dose: 1,000 mg Documented by: Ascorbic Acid (Vitamin C) 500 mg PO LUNCH [facility] Last Admin: 12/01/19 13:14 Dose: 500 mg Documented by: Cholecalciferol (Vitamin D (25mcg)) 5,000 unit PO DAILY@1200 [facility] Last Admin: 12/01/19 13:14 Dose: 5,000 unit Documented by: Diazepam (Valium) 5 mg PO 4X/DAY PRN PRN PRN Reason: SPASMS Last Admin: 12/02/19 08:45 Dose: 5 mg Documented by: Docusate Sodium (Colace) 100 mg PO BID [facility] Last Admin: 12/02/19 09:33 Dose: 100 mg Documented by: Doxycycline Monohydrate (Doxycycline) 100 mg PO BID [facility] Last Admin: 12/02/19 09:35 Dose: 100 mg Documented by: Enoxaparin Sodium (Lovenox) 40 mg SC DAILY@0600 [facility] Last Admin: 12/02/19 05:45 Dose: 40 mg Documented by: Enteral Nutritional Formula (Ensure Surgery) 237 ml PO 0600,1300,2000 [facility] Last Admin: 12/02/19 05:44 Dose: 237 ml Documented by: Famotidine (Pepcid) 40 mg PO QHS [facility] Last Admin: 12/01/19 21:48 Dose: 40 mg Documented by: Ferrous Sulfate (Ferrous Sulfate) 325 mg PO DAILY@1200 [facility] Last Admin: 12/01/19 13:13 Dose: 325 mg Documented by: Gabapentin (Neurontin) 800 mg PO BID@0600,1200 [facility] Last Admin: 12/02/19 05:45 Dose: 800 mg Documented by: Gabapentin (Neurontin) 1,200 mg PO QHS [facility] Last Admin: 12/01/19 21:47 Dose: 1,200 mg Documented by: Insulin Human Lispro (Humalog Idaliapen (Bkc)) 1 - 6 unit SC Q4H PRN PRN; Protocol PRN Reason: BG>/= 180, SEE PROTOCOL Levothyroxine Sodium (Synthroid) 175 mcg PO DAILY@0600 [facility] Last Admin: 12/02/19 05:47 Dose: 175 mcg Documented by: Lisinopril (Zestril) 10 mg PO LUNCH [facility] Last Admin: 12/01/19 13:14 Dose: 10 mg Documented by: Montelukast Sodium (Singulair) 10 mg PO QHS [facility] Last Admin: 12/01/19 21:47 Dose: 10 mg Documented by: Morphine Sulfate () 2 - 4 mg IV Q2H PRN PRN PRN Reason: Pain Score 6-10/10 Morphine Sulfate () 2 - 4 mg IV Q2H PRN PRN PRN Reason: Pain Score 6-10/10 Last Admin: 11/30/19 12:43 Dose: 4 mg Documented by: [id number] Ethyl Esters (Lovaza) 2 gm PO LUNCH [facility] Last Admin: 12/01/19 13:13 Dose: 2 gm Documented by: Ondansetron HCl (Zofran) 4 mg IV Q8H PRN PRN PRN Reason: NAUSEA Oxycodone HCl (Oxyir) 5 - 10 mg PO Q4H PRN PRN PRN Reason: Pain Score 4-10/10 Last Admin: 12/02/19 08:45 Dose: 10 mg Documented by: Pantoprazole Sodium (Protonix) 20 mg PO DAILY [facility] Last Admin: 12/02/19 09:35 Dose: 20 mg Documented by: Pramipexole Dihydrochloride (Mirapex) 0.5 mg PO DAILY@0600 [facility] Last Admin: 12/02/19 05:46 Dose: 0.5 mg Documented by: Pramipexole Dihydrochloride (Mirapex) 1 mg PO LUNCH [facility] Last Admin: 12/01/19 13:14 Dose: 1 mg Documented by: Pramipexole Dihydrochloride (Mirapex) 1.5 mg PO QHS [facility] Last Admin: 12/01/19 21:47 Dose: 1.5 mg Documented by: Promethazine HCl (Phenergan) 12.5 mg IM Q6H PRN PRN; Protocol PRN Reason: NAUSEA/VOMITING Senna/Docusate Sodium (Senokot-S, Aileen-Colace) 2 tablet PO BID [facility] Last Admin: 12/02/19 09:35 Dose: 2 tablet Documented by: Sodium Chloride () 10 - 40 ml IV UD PRN PRN Reason: SALINE FLUSH Last Admin: 11/30/19 12:48 Dose: 10 ml Documented by: Venlafaxine HCl (Effexor Xr) 225 mg PO DAILY [facility] Last Admin: 12/02/19 09:33 Dose: 225 mg Documented by: Voriconazole (Vfend) 200 mg PO BID [facility] Last Admin: 12/02/19 09:35 Dose: 200 mg Documented by: Medical Necessity - Tobacco Use Smoking Status: Former smoker Assessment/Plan All Active Problems 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 Barton and reconstruction right inferior knee wound with right medial gastrocnemius muscular rotation flap 11/29/[address] Lazaro. History of multiple surgeries on right knee. 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 Previous cultures January 2019 grew Neetu parapsilosis, Enterobacter and staph aureus. ID consulted. Management per ortho. Patient is on chronic suppressive antibiotic therapy. Plan to continue doxycycline and Vfend. Wound cultures with no growth. Wound RN consult. 2. Hypertension-stable, continue lisinopril regimen. 3. Rheumatoid arthritis-previously on Plaquenil. No longer taking. 4. Hypothyroidism-continue Synthroid regimen. 5. Depression/anxiety-continue Effexor. 6. GERD/history of ulcer-continue famotidine. 7. 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 Previously on Xarelto which treatment has since completed. 8. RENNY-continue CPAP regimen. 9. Chronic COPD-patient reports very mild with no history of exacerbation. As needed albuterol aerosol. 10. Morbid obesity-encouraged diet and lifestyle medications. DVT prophylaxis-Lovenox Discharge planning: SNF/[facility] pending approval. This patient was seen by MERISSA Griggs under the supervision of Dr. Juarez. <AnnLinda - Last Filed: 12/02/19 12:28> - Physical Exam Vitals/I&O's: Vital Signs Temp Pulse Resp BP Pulse Ox 98.5 F 70 18 137/50 H 100 12/02/19 08:30 12/02/19 08:30 12/02/19 08:30 12/02/19 08:30 12/02/19 08:30 Oxygen Flow Rate (L/min) 2 Oxygen Delivery Method Room Air Weight: 264 lb 5.348 oz Body Mass Index (BMI) 45.3 Finger Stick Blood Glucose 193 Intake and Output for Last 24 Hours 11/30/19 12/01/19 12/02/19 23:59 23:59 23:59 Intake Total 3359.99 / 3359.99 950 / 950 600 / 600 Output Total 4160 / 4160 2372 / 2372 940 / 940 Balance -800.01 / -800.01 -1422 / -1422 -340 / -340 Microbiology Past 72 Hours 11/29/19 11:10 Tissue - Knee Gram Stain - Final 11/29/19 11:10 Tissue - Knee Wound Culture - Final No growth aerobically. 11/29/19 11:10 Tissue - Knee Anaerobic Culture - Preliminary No growth in 48 hours. 11/29/19 11:10 Tissue - Knee Gram Stain - Final 11/29/19 11:10 Tissue - Knee Wound Culture - Final No growth aerobically. 11/29/19 11:10 Tissue - Knee Anaerobic Culture - Preliminary No growth in 48 hours. 11/29/19 11:10 Tissue - Knee Gram Stain - Final 11/29/19 11:10 Tissue - Knee Wound Culture - Final No growth aerobically. 11/29/19 11:10 Tissue - Knee Anaerobic Culture - Preliminary No growth in 48 hours. Laboratory Results 12/02/19 06:55: WBC 9.8, RBC 4.66, Hgb 12.7, Hct 41.0, MCV 88.0, MCH 27.3, MCHC 31.0 L, RDW Std Deviation 51.2 H, RDW Coeff of Sergio 15.9 H, Plt Count 216, MPV 10.1 Current Medications Acetaminophen (Tylenol) 1,000 mg PO Q8 [facility] Last Admin: 12/02/19 05:46 Dose: 1,000 mg Documented by: Ascorbic Acid (Vitamin C) 500 mg PO LUNCH [facility] Last Admin: 12/02/19 12:15 Dose: 500 mg Documented by: Cholecalciferol (Vitamin D (25mcg)) 5,000 unit PO DAILY@1200 [facility] Last Admin: 12/02/19 12:15 Dose: 5,000 unit Documented by: Diazepam (Valium) 5 mg PO 4X/DAY PRN PRN PRN Reason: SPASMS Last Admin: 12/02/19 08:45 Dose: 5 mg Documented by: Docusate Sodium (Colace) 100 mg PO BID [facility] Last Admin: 12/02/19 09:33 Dose: 100 mg Documented by: Doxycycline Monohydrate (Doxycycline) 100 mg PO BID [facility] Last Admin: 12/02/19 09:35 Dose: 100 mg Documented by: Enoxaparin Sodium (Lovenox) 40 mg SC DAILY@0600 [facility] Last Admin: 12/02/19 05:45 Dose: 40 mg Documented by: Enteral Nutritional Formula (Ensure Surgery) 237 ml PO 0600,1300,2000 [facility] Last Admin: 12/02/19 12:19 Dose: 237 ml Documented by: Famotidine (Pepcid) 40 mg PO QHS [facility] Last Admin: 12/01/19 21:48 Dose: 40 mg Documented by: Ferrous Sulfate (Ferrous Sulfate) 325 mg PO DAILY@1200 [facility] Last Admin: 12/02/19 12:14 Dose: 325 mg Documented by: Gabapentin (Neurontin) 800 mg PO BID@0600,1200 [facility] Last Admin: 12/02/19 12:15 Dose: 800 mg Documented by: Gabapentin (Neurontin) 1,200 mg PO QHS [facility] Last Admin: 12/01/19 21:47 Dose: 1,200 mg Documented by: Insulin Human Lispro (Humalog Kwikpen (Bkc)) 1 - 6 unit SC Q4H PRN PRN; Protocol PRN Reason: BG>/= 180, SEE PROTOCOL Levothyroxine Sodium (Synthroid) 175 mcg PO DAILY@0600 [facility] Last Admin: 12/02/19 05:47 Dose: 175 mcg Documented by: Lisinopril (Zestril) 10 mg PO LUNCH [facility] Last Admin: 12/02/19 12:16 Dose: 10 mg Documented by: Montelukast Sodium (Singulair) 10 mg PO QHS [facility] Last Admin: 12/01/19 21:47 Dose: 10 mg Documented by: Morphine Sulfate () 2 - 4 mg IV Q2H PRN PRN PRN Reason: Pain Score 6-10/10 Morphine Sulfate () 2 - 4 mg IV Q2H PRN PRN PRN Reason: Pain Score 6-10/10 Last Admin: 11/30/19 12:43 Dose: 4 mg Documented by: [id number] Ethyl Esters (Lovaza) 2 gm PO LUNCH [facility] Last Admin: 12/02/19 12:13 Dose: 2 gm Documented by: Ondansetron HCl (Zofran) 4 mg IV Q8H PRN PRN PRN Reason: NAUSEA Oxycodone HCl (Oxyir) 5 - 10 mg PO Q4H PRN PRN PRN Reason: Pain Score 4-10/10 Last Admin: 12/02/19 08:45 Dose: 10 mg Documented by: Pantoprazole Sodium (Protonix) 20 mg PO DAILY [facility] Last Admin: 12/02/19 09:35 Dose: 20 mg Documented by: Pramipexole Dihydrochloride (Mirapex) 0.5 mg PO DAILY@0600 [facility] Last Admin: 12/02/19 05:46 Dose: 0.5 mg Documented by: Pramipexole Dihydrochloride (Mirapex) 1 mg PO LUNCH [facility] Last Admin: 12/02/19 12:15 Dose: 1 mg Documented by: Pramipexole Dihydrochloride (Mirapex) 1.5 mg PO QHS [facility] Last Admin: 12/01/19 21:47 Dose: 1.5 mg Documented by: Promethazine HCl (Phenergan) 12.5 mg IM Q6H PRN PRN; Protocol PRN Reason: NAUSEA/VOMITING Senna/Docusate Sodium (Senokot-S, Aileen-Colace) 2 tablet PO BID [facility] Last Admin: 12/02/19 09:35 Dose: 2 tablet Documented by: Sodium Chloride () 10 - 40 ml IV UD PRN PRN Reason: SALINE FLUSH Last Admin: 11/30/19 12:48 Dose: 10 ml Documented by: Venlafaxine HCl (Effexor Xr) 225 mg PO DAILY [facility] Last Admin: 12/02/19 09:33 Dose: 225 mg Documented by: Voriconazole (Vfend) 200 mg PO BID [facility] Last Admin: 12/02/19 09:35 Dose: 200 mg Documented by: Assessment/Plan Patient seen by MERISSA Griggs under my supervision Patient seen and examined. She has no complaints today. Pain is well tolerated. She worked with physical therapy and was able to move from her bed to a chair with a walker successfully. She is awaiting placement. Labs and vitals reviewed. She has remained hemodynamically stable. O/E: Vital Signs Temp Pulse Resp BP Pulse Ox 97.7 F L 84 18 116/67 93 11/30/19 08:42 11/30/19 08:42 11/30/19 09:05 11/30/19 08:42 11/30/19 09:05 General: Alert, Oriented x3, Cooperative HEENT: Atraumatic, PERRLA, EOMI, Normocephalic Neck: Supple, No JVD, Negative Carotid Bruits Lungs: Clear to auscultation, Normal air movement Cardiovascular: Regular rate, No murmurs Abdomen: Bowel Sounds Present, Soft, Non Tender, Non-Distended Extremities: No clubbing, No cyanosis, No edema, Capillary Refill Less than 3 Seconds Skin: No rashes, No breakdown, - - Right knee postop dressing intact, with multiple drains in place Musculoskeletal: No Tenderness to Palpation of Joints or Extremities Neurological: Cranial nerves II-XII grossly intact, Neuro grossly intact Psych/Mental Status: Normal Affect, Appropriate Patient currently on doxycycline and voriconazole. All the wound cultures so far have been negative. ID on board. Lovenox 40 mg daily for DVT prophylaxis. Continue lisinopril and Synthroid. Awaiting placement for rehab. Plastic surgery on board for flap repair. Plan will be to discharge to the retirement on aspirin for 4 weeks for DVT prophylaxis. Rest as per MERISSA Griggs's notes which I reviewed and endorsed. Inpatient E&M: 36513 Subs Hosp L2
[2019-12-02] MEDS: Omega-3 Acid Ethyl Esters 1 GM Capsule 2 GM PO (12:13)
[2019-12-02] MEDS: Ferrous Sulfate 325 MG Tablet PO (12:14)
[2019-12-02] MEDS: Pramipexole Di-HCl 1 MG Tablet PO (12:15)
[2019-12-02] MEDS: Ascorbic Acid 500 MG Tablet PO (12:15)
[2019-12-02] MEDS: Lisinopril 10 MG Tablet PO (12:16)
[2019-12-02] MEDS: 0.9% Saline Lock 10 ML Syringe IV (14:46)
[2019-12-02 15:08] VITALS: BP 127/71; PULSE 74; RESP 18; TEMP 36.8; O2SAT 100
--- NOTE | 2019-12-02 21:32 | PCM.PN.SRG ---
Subjective: Postop #3 Patient has no complaints. - Physical Exam Vitals/I&O's: Vital Signs Temp Pulse Resp BP Pulse Ox 98.2 F 74 18 127/71 H 100 12/02/19 15:08 12/02/19 15:08 12/02/19 15:08 12/02/19 15:08 12/02/19 15:08 Oxygen Flow Rate (L/min) 2 Oxygen Delivery Method Room Air Weight: 264 lb 5.348 oz Body Mass Index (BMI) 45.3 Finger Stick Blood Glucose 193 Intake and Output for Last 24 Hours 11/30/19 12/01/19 12/02/19 23:59 23:59 23:59 Intake Total 3359.99 / 3359.99 950 / 950 2250 / 2250 Output Total 4160 / 4160 2372 / 2372 1984 / 1984 Balance -800.01 / -800.01 -1422 / -1422 265 / 265 Drainage 172 ml yesterday. General: Alert, Oriented x3 HEENT: PERRLA, EOMI Oral: Moist Mucosa Neck: Supple Abdomen: Soft, Non-Distended Skin: Ulcer/ Wound - right inferior knee wound with muscle flap and skin graft. VAC in place. Minimal drainage in the canister. VAC will be changed on Wednesday., Incision - dry and intact. Neurological: Cranial nerves II-XII grossly intact Psych/Mental Status: Normal Affect, Appropriate Microbiology Past 72 Hours 11/29/19 11:10 Tissue - Knee Gram Stain - Final 11/29/19 11:10 Tissue - Knee Wound Culture - Final No growth aerobically. 11/29/19 11:10 Tissue - Knee Anaerobic Culture - Preliminary No growth in 48 hours. 11/29/19 11:10 Tissue - Knee Gram Stain - Final 11/29/19 11:10 Tissue - Knee Wound Culture - Final No growth aerobically. 11/29/19 11:10 Tissue - Knee Anaerobic Culture - Preliminary No growth in 48 hours. 11/29/19 11:10 Tissue - Knee Gram Stain - Final 11/29/19 11:10 Tissue - Knee Wound Culture - Final No growth aerobically. 11/29/19 11:10 Tissue - Knee Anaerobic Culture - Preliminary No growth in 48 hours. Laboratory Results 12/02/19 06:55: WBC 9.8, RBC 4.66, Hgb 12.7, Hct 41.0, MCV 88.0, MCH 27.3, MCHC 31.0 L, RDW Std Deviation 51.2 H, RDW Coeff of Sergio 15.9 H, Plt Count 216, MPV 10.1 Current Medications Acetaminophen (Tylenol) 1,000 mg PO Q8 [facility] Last Admin: 12/02/19 14:46 Dose: 1,000 mg Documented by: Ascorbic Acid (Vitamin C) 500 mg PO LUNCH [facility] Last Admin: 12/02/19 12:15 Dose: 500 mg Documented by: Cholecalciferol (Vitamin D (25mcg)) 5,000 unit PO DAILY@1200 [facility] Last Admin: 12/02/19 12:15 Dose: 5,000 unit Documented by: Diazepam (Valium) 5 mg PO 4X/DAY PRN PRN PRN Reason: SPASMS Last Admin: 12/02/19 08:45 Dose: 5 mg Documented by: Docusate Sodium (Colace) 100 mg PO BID [facility] Last Admin: 12/02/19 09:33 Dose: 100 mg Documented by: Doxycycline Monohydrate (Doxycycline) 100 mg PO BID [facility] Last Admin: 12/02/19 09:35 Dose: 100 mg Documented by: Enoxaparin Sodium (Lovenox) 40 mg SC DAILY@0600 [facility] Last Admin: 12/02/19 05:45 Dose: 40 mg Documented by: Enteral Nutritional Formula (Ensure Surgery) 237 ml PO 0600,1300,2000 [facility] Last Admin: 12/02/19 12:19 Dose: 237 ml Documented by: Famotidine (Pepcid) 40 mg PO QHS [facility] Last Admin: 12/01/19 21:48 Dose: 40 mg Documented by: Ferrous Sulfate (Ferrous Sulfate) 325 mg PO DAILY@1200 [facility] Last Admin: 12/02/19 12:14 Dose: 325 mg Documented by: Gabapentin (Neurontin) 800 mg PO BID@0600,1200 [facility] Last Admin: 12/02/19 12:15 Dose: 800 mg Documented by: Gabapentin (Neurontin) 1,200 mg PO QHS [facility] Last Admin: 12/01/19 21:47 Dose: 1,200 mg Documented by: Insulin Human Lispro (Humalog Kwikpen (Bkc)) 1 - 6 unit SC Q4H PRN PRN; Protocol PRN Reason: BG>/= 180, SEE PROTOCOL Levothyroxine Sodium (Synthroid) 175 mcg PO DAILY@0600 [facility] Last Admin: 12/02/19 05:47 Dose: 175 mcg Documented by: Lisinopril (Zestril) 10 mg PO LUNCH [facility] Last Admin: 12/02/19 12:16 Dose: 10 mg Documented by: Montelukast Sodium (Singulair) 10 mg PO QHS [facility] Last Admin: 12/01/19 21:47 Dose: 10 mg Documented by: Morphine Sulfate () 2 - 4 mg IV Q2H PRN PRN PRN Reason: Pain Score 6-10/10 Morphine Sulfate () 2 - 4 mg IV Q2H PRN PRN PRN Reason: Pain Score 6-10/10 Last Admin: 11/30/19 12:43 Dose: 4 mg Documented by: [id number] Ethyl Esters (Lovaza) 2 gm PO LUNCH [facility] Last Admin: 12/02/19 12:13 Dose: 2 gm Documented by: Ondansetron HCl (Zofran) 4 mg IV Q8H PRN PRN PRN Reason: NAUSEA Oxycodone HCl (Oxyir) 5 - 10 mg PO Q4H PRN PRN PRN Reason: Pain Score 4-10/10 Last Admin: 12/02/19 08:45 Dose: 10 mg Documented by: Pantoprazole Sodium (Protonix) 20 mg PO DAILY [facility] Last Admin: 12/02/19 09:35 Dose: 20 mg Documented by: Pramipexole Dihydrochloride (Mirapex) 0.5 mg PO DAILY@0600 [facility] Last Admin: 12/02/19 05:46 Dose: 0.5 mg Documented by: Pramipexole Dihydrochloride (Mirapex) 1 mg PO LUNCH [facility] Last Admin: 12/02/19 12:15 Dose: 1 mg Documented by: Pramipexole Dihydrochloride (Mirapex) 1.5 mg PO QHS [facility] Last Admin: 12/01/19 21:47 Dose: 1.5 mg Documented by: Promethazine HCl (Phenergan) 12.5 mg IM Q6H PRN PRN; Protocol PRN Reason: NAUSEA/VOMITING Senna/Docusate Sodium (Senokot-S, Aileen-Colace) 2 tablet PO BID [facility] Last Admin: 12/02/19 09:35 Dose: 2 tablet Documented by: Sodium Chloride () 10 - 40 ml IV UD PRN PRN Reason: SALINE FLUSH Last Admin: 12/02/19 14:46 Dose: 10 ml Documented by: Venlafaxine HCl (Effexor Xr) 225 mg PO DAILY [facility] Last Admin: 12/02/19 09:33 Dose: 225 mg Documented by: Voriconazole (Vfend) 200 mg PO BID [facility] Last Admin: 12/02/19 09:35 Dose: 200 mg Documented by: Medical Necessity - Tobacco Use Smoking Status: Former smoker Assessment/Plan All Active Problems 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 Nonhealing ulcer right inferior knee by tibial tubercle. 2. History of revision replacement right knee. 3. History of right TKA infection. 4. Former smoker. 5. Sural nerve injury right posterior leg. 6. s/p irrigation debridement with polyethylene exchange right total knee. Excision sinus tract right knee. Preliminary closure, final closure per plastics 7. s/p reconstruction right inferior knee wound with right medial gastrocnemius muscular rotation flap and STSG reconstruction from right lateral abdominal wall (45 cm2) and 13 cm right superior knee wound complex secondary wound closure and epineural repair sural nerve injury right posterior leg. Patient feels good with minimal pain complaints. Has less burning nerve pain. Expected with the sural nerve repair. She is already on Neurontin. VAC in place over the skin graft and muscle flap at 100 mmHg continuous suction. It will be changed twice a week, the next change is on Wednesday. At the first VAC change, if there is a lot of moisture on the skin graft, will increase the suction to 125 mmHg. Operative cultures are negative thus far. Continue Doxycycline and Voriconazole that she was on preoperatively for group home suppression. Hgb stable at 12.7. Drainage was 172 ml yesterday. Operative blood loss was 350 ml. Prealbumin was 24.7. Encourage nutritional supplementation with protein to help the healing process. Maintain knee brace for up to 4 weeks. Continue non weight bearing. Continue Lovenox while hospitalized. Will be discharged on Aspirin for DVT prophylaxis. Patient has decided to go to an ECF for a short stay after discharge until she is comfortable being at home alone. ECF evaluation in progress. After discharge [facility].
[2019-12-02 22:54] VITALS: BP 120/60; PULSE 71; RESP 16; TEMP 36.8; O2SAT 96
[2019-12-02] MEDS: Pramipexole Di-HCl 0.5 MG Tablet 1.5 MG PO (23:00)
[2019-12-02] MEDS: Famotidine 20 MG Tablet 40 MG PO (23:01)
[2019-12-02] MEDS: Montelukast 10 MG Tablet PO (23:01)
[2019-12-02] MEDS: Gabapentin 600 MG Tablet 1200 MG PO (23:03)
[2019-12-03 03:06] VITALS: BP 120/57; PULSE 78; RESP 16; TEMP 36.6; O2SAT 97
[2019-12-03] MEDS: Ensure Surgery 237 ML LIQUID PO ×3 (06:23→21:16)
[2019-12-03] MEDS: Acetaminophen 500 MG Tablet 1000 MG PO ×3 (06:24→21:18)
[2019-12-03] MEDS: Levothyroxine 175 MCG Tablet PO (06:24)
[2019-12-03] MEDS: Enoxaparin 40 MG/0.4 ML Syringe SC (06:24)
[2019-12-03] MEDS: Pramipexole Di-HCl 0.5 MG Tablet PO (06:24)
--- NOTE | 2019-12-03 08:42 | PN.ORTHO_ITS ---
Subjective: The patient was sitting in bedside chair eating breakfast upon examination. Patient denies any chest pain, shortness of breath, dizziness, lightheadedness, nausea or vomiting, or calf pain. Pain is controlled on medications. No adverse overnight events. Pain is well controlled and patient has no significant complaints today. We are still waiting on pre-CERT from the insurance to be discharged to the [facility]. Objective: Vital signs stable and afebrile. Patient is able to plantarflex and dorsiflex actively. Sensation is intact to light touch to saphenous, sural, superficial and deep peroneal, and tibial distribution. Dressing is without any breakthrough drainage. Wound vacs from plastics are still in place. Knee immobilizer in place. Negative Homans bilaterally, negative signs and symptoms of DVT. - Physical Exam Vitals/I&O's: Vital Signs Temp Pulse Resp BP Pulse Ox 98 F 78 16 120/57 L 97 12/03/19 03:06 12/03/19 03:06 12/03/19 03:06 12/03/19 03:06 12/03/19 03:06 Oxygen Flow Rate (L/min) 2 Oxygen Delivery Method Room Air Weight: 119.9 kg Body Mass Index (BMI) 45.3 Finger Stick Blood Glucose 193 Intake and Output for Last 24 Hours 12/01/19 12/02/19 12/03/19 23:59 23:59 23:59 Intake Total 950 / 950 2250 / 2250 350 / 350 Output Total 2372 / 2372 1984 / 1984 828 / 828 Balance -1422 / -1422 265 / 265 -478 / -478 General: Alert, Oriented x3, Cooperative, No apparent distress Microbiology Past 72 Hours 11/29/19 11:10 Tissue - Knee Gram Stain - Final 11/29/19 11:10 Tissue - Knee Wound Culture - Final No growth aerobically. 11/29/19 11:10 Tissue - Knee Anaerobic Culture - Preliminary No growth in 48 hours. 11/29/19 11:10 Tissue - Knee Gram Stain - Final 11/29/19 11:10 Tissue - Knee Wound Culture - Final No growth aerobically. 11/29/19 11:10 Tissue - Knee Anaerobic Culture - Preliminary No growth in 48 hours. 11/29/19 11:10 Tissue - Knee Gram Stain - Final 11/29/19 11:10 Tissue - Knee Wound Culture - Final No growth aerobically. 11/29/19 11:10 Tissue - Knee Anaerobic Culture - Preliminary No growth in 48 hours. Current Medications Acetaminophen (Tylenol) 1,000 mg PO Q8 [facility] Last Admin: 12/03/19 06:24 Dose: 1,000 mg Documented by: Ascorbic Acid (Vitamin C) 500 mg PO LUNCH [facility] Last Admin: 12/02/19 12:15 Dose: 500 mg Documented by: Cholecalciferol (Vitamin D (25mcg)) 5,000 unit PO DAILY@1200 [facility] Last Admin: 12/02/19 12:15 Dose: 5,000 unit Documented by: Diazepam (Valium) 5 mg PO 4X/DAY PRN PRN PRN Reason: SPASMS Last Admin: 12/02/19 08:45 Dose: 5 mg Documented by: Docusate Sodium (Colace) 100 mg PO BID [facility] Last Admin: 12/02/19 23:00 Dose: 100 mg Documented by: Doxycycline Monohydrate (Doxycycline) 100 mg PO BID [facility] Last Admin: 12/02/19 23:02 Dose: 100 mg Documented by: Enoxaparin Sodium (Lovenox) 40 mg SC DAILY@0600 [facility] Last Admin: 12/03/19 06:24 Dose: 40 mg Documented by: Enteral Nutritional Formula (Ensure Surgery) 237 ml PO 0600,1300,2000 [facility] Last Admin: 12/03/19 06:23 Dose: 237 ml Documented by: Famotidine (Pepcid) 40 mg PO QHS [facility] Last Admin: 12/02/19 23:01 Dose: 40 mg Documented by: Ferrous Sulfate (Ferrous Sulfate) 325 mg PO DAILY@1200 [facility] Last Admin: 12/02/19 12:14 Dose: 325 mg Documented by: Gabapentin (Neurontin) 800 mg PO BID@0600,1200 [facility] Last Admin: 12/02/19 23:02 Dose: 800 mg Documented by: Gabapentin (Neurontin) 1,200 mg PO QHS [facility] Last Admin: 12/02/19 23:03 Dose: 1,200 mg Documented by: Insulin Human Lispro (Humalog Kwikpen (Bkc)) 1 - 6 unit SC Q4H PRN PRN; Pro tocol PRN Reason: BG>/= 180, SEE PROTOCOL Levothyroxine Sodium (Synthroid) 175 mcg PO DAILY@0600 [facility] Last Admin: 12/03/19 06:24 Dose: 175 mcg Documented by: Lisinopril (Zestril) 10 mg PO LUNCH [facility] Last Admin: 12/02/19 12:16 Dose: 10 mg Documented by: Montelukast Sodium (Singulair) 10 mg PO QHS [facility] Last Admin: 12/02/19 23:01 Dose: 10 mg Documented by: Morphine Sulfate () 2 - 4 mg IV Q2H PRN PRN PRN Reason: Pain Score 6-10/10 Morphine Sulfate () 2 - 4 mg IV Q2H PRN PRN PRN Reason: Pain Score 6-10/10 Last Admin: 11/30/19 12:43 Dose: 4 mg Documented by: [id number]-[id number] Ethyl Esters (Lovaza) 2 gm PO LUNCH [facility] Last Admin: 12/02/19 12:13 Dose: 2 gm Documented by: Ondansetron HCl (Zofran) 4 mg IV Q8H PRN PRN PRN Reason: NAUSEA Oxycodone HCl (Oxyir) 5 - 10 mg PO Q4H PRN PRN PRN Reason: Pain Score 4-10/10 Last Admin: 12/02/19 08:45 Dose: 10 mg Documented by: Pantoprazole Sodium (Protonix) 20 mg PO DAILY [facility] Last Admin: 12/02/19 09:35 Dose: 20 mg Documented by: Pramipexole Dihydrochloride (Mirapex) 0.5 mg PO DAILY@0600 [facility] Last Admin: 12/03/19 06:24 Dose: 0.5 mg Documented by: Pramipexole Dihydrochloride (Mirapex) 1 mg PO LUNCH [facility] Last Admin: 12/02/19 12:15 Dose: 1 mg Documented by: Pramipexole Dihydrochloride (Mirapex) 1.5 mg PO QHS [facility] Last Admin: 12/02/19 23:00 Dose: 1.5 mg Documented by: Promethazine HCl (Phenergan) 12.5 mg IM Q6H PRN PRN; Protocol PRN Reason: NAUSEA/VOMITING Senna/Docusate Sodium (Senokot-S, Aileen-Colace) 2 tablet PO BID [facility] Last Admin: 12/02/19 23:01 Dose: 2 tablet Documented by: Sodium Chloride () 10 - 40 ml IV UD PRN PRN Reason: SALINE FLUSH Last Admin: 12/02/19 14:46 Dose: 10 ml Documented by: Venlafaxine HCl (Effexor Xr) 225 mg PO DAILY [facility] Last Admin: 12/02/19 09:33 Dose: 225 mg Documented by: Voriconazole (Vfend) 200 mg PO BID [facility] Last Admin: 12/02/19 23:03 Dose: 200 mg Documented by: Medical Necessity - Tobacco Use Smoking Status: Former smoker Assessment/Plan All Active Problems 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 S/P irrigation debridement with polyethylene exchange right total knee with excision of sinus tract. Plastic surgery also performed flap repair POD #4 2. Continue Pain Medications: Tylenol and OxyIR 3. DVT Prophylaxis: Currently on Lovenox while in hospital. Plan will be to transition to aspirin once discharge for 4 weeks for DVT prophylaxis. 4. PT/OT: Continue with knee immobilizer right knee. Currently she will be nonweightbearing and motion restrictions per plastic surgery and Dr. Lazaro. No range of motion for 1 month. Range of motion and weightbearing status will be directed by Dr. Lazaro secondary to his closure. 5. Encouraged Incentive Spirometry 6. Continue postoperative medical management per medicine 7. Continue with Hemovac drain from orthopedic standpoint. 20 cc of output over the past 24 hours has occurred. Hemovac drain was removed today. Steri- Strips placed. Defer for removal of other MARIELA drains which were placed by Dr. Lazaro. 8. Infectious disease consultation: Appreciate input on management of antibiotics. Cultures Carmen findings are no growth and organisms seen. 9. Disposition: Currently waiting on pre-CERT for patient to go to the [facility]. Plan will be for discharge tomorrow as long as pre-CERT has been obtained. Patient's range of motion and weightbearing restrictions are going to be directed by Dr. Lazaro secondary to his closure. Patient's additional night stay are secondary to plastics with Dr. Lazaro to monitor the wound. From an orthopedic standpoint patient is stable. We are just waiting on insurance for discharge. Refer to Dr. Lazaro with regards to wound VAC recommendations, range of motion restrictions, and weightbearing status.
[2019-12-03 09:06] VITALS: BP 124/69; PULSE 73; RESP 16; TEMP 36.8; O2SAT 98
[2019-12-03 10:00] VITALS: RESP 18
[2019-12-03] MEDS: Venlafaxine XR 75 MG Capsule 225 MG PO (10:09)
[2019-12-03] MEDS: Voriconazole 200 MG Tablet PO ×2 (10:10→21:17)
[2019-12-03] MEDS: Pantoprazole Sodium 20 MG Tablet PO (10:10)
[2019-12-03] MEDS: Doxycycline 100 MG CAPSULE PO ×2 (10:10→21:20)
[2019-12-03] MEDS: Gabapentin 800 MG Tablet PO (11:57)
[2019-12-03] MEDS: Omega-3 Acid Ethyl Esters 1 GM Capsule 2 GM PO (11:57)
[2019-12-03] MEDS: Ascorbic Acid 500 MG Tablet PO (11:57)
[2019-12-03] MEDS: Ferrous Sulfate 325 MG Tablet PO (11:58)
[2019-12-03] MEDS: Lisinopril 10 MG Tablet PO (11:59)
[2019-12-03] MEDS: Pramipexole Di-HCl 1 MG Tablet PO (12:00)
--- NOTE | 2019-12-03 12:01 | PN_ITS ---
<Reba Correa - Last Filed: 12/03/19 12:02> Subjective: Patient seen and examined. Ambulating in room, denies pain. Denies fever, chills. Awaiting SNF approval. Denies current complaints. - Physical Exam Vitals/I&O's: Vital Signs Temp Pulse Resp BP Pulse Ox 98.3 F 73 18 124/69 H 98 12/03/19 09:06 12/03/19 09:06 12/03/19 10:00 12/03/19 09:06 12/03/19 09:06 Oxygen Flow Rate (L/min) 2 Oxygen Delivery Method Room Air Weight: 264 lb 5.348 oz Body Mass Index (BMI) 45.3 Finger Stick Blood Glucose 193 Intake and Output for Last 24 Hours 12/01/19 12/02/19 12/03/19 23:59 23:59 23:59 Intake Total 950 / 950 2250 / 2250 350 / 350 Output Total 2372 / 2372 1984 / 1984 828 / 828 Balance -1422 / -1422 265 / 265 -478 / -478 General: Alert, Oriented x3, Cooperative HEENT: Atraumatic, PERRLA, EOMI, Normocephalic Neck: Supple, No JVD, Negative Carotid Bruits Lungs: Clear to auscultation, Normal air movement Cardiovascular: Regular rate, No murmurs Abdomen: Bowel Sounds Present, Soft, Non Tender, Non-Distended Extremities: No clubbing, No cyanosis, No edema, Capillary Refill Less than 3 Seconds Skin: No rashes, No breakdown, - - Right knee postoperative wound, dressing/drain intact. Musculoskeletal: No Tenderness to Palpation of Joints or Extremities Neurological: Cranial nerves II-XII grossly intact, Neuro grossly intact Psych/Mental Status: Normal Affect, Appropriate Microbiology Past 72 Hours 11/29/19 11:10 Tissue - Knee Gram Stain - Final 11/29/19 11:10 Tissue - Knee Wound Culture - Final No growth aerobically. 11/29/19 11:10 Tissue - Knee Anaerobic Culture - Preliminary No growth in 48 hours. 11/29/19 11:10 Tissue - Knee Gram Stain - Final 11/29/19 11:10 Tissue - Knee Wound Culture - Final No growth aerobically. 11/29/19 11:10 Tissue - Knee Anaerobic Culture - Preliminary No growth in 48 hours. 11/29/19 11:10 Tissue - Knee Gram Stain - Final 11/29/19 11:10 Tissue - Knee Wound Culture - Final No growth aerobically. 11/29/19 11:10 Tissue - Knee Anaerobic Culture - Preliminary No growth in 48 hours. Current Medications Acetaminophen (Tylenol) 1,000 mg PO Q8 [facility] Last Admin: 12/03/19 06:24 Dose: 1,000 mg Documented by: Ascorbic Acid (Vitamin C) 500 mg PO LUNCH [facility] Last Admin: 12/02/19 12:15 Dose: 500 mg Documented by: Cholecalciferol (Vitamin D (25mcg)) 5,000 unit PO DAILY@1200 [facility] Last Admin: 12/02/19 12:15 Dose: 5,000 unit Documented by: Diazepam (Valium) 5 mg PO 4X/DAY PRN PRN PRN Reason: SPASMS Last Admin: 12/02/19 08:45 Dose: 5 mg Documented by: Docusate Sodium (Colace) 100 mg PO BID [facility] Last Admin: 12/03/19 10:11 Dose: Not Given Documented by: Doxycycline Monohydrate (Doxycycline) 100 mg PO BID [facility] Last Admin: 12/03/19 10:10 Dose: 100 mg Documented by: Enoxaparin Sodium (Lovenox) 40 mg SC DAILY@0600 [facility] Last Admin: 12/03/19 06:24 Dose: 40 mg Documented by: Enteral Nutritional Formula (Ensure Surgery) 237 ml PO 0600,1300,2000 [facility] Last Admin: 12/03/19 06:23 Dose: 237 ml Documented by: Famotidine (Pepcid) 40 mg PO QHS [facility] Last Admin: 12/02/19 23:01 Dose: 40 mg Documented by: Ferrous Sulfate (Ferrous Sulfate) 325 mg PO DAILY@1200 [facility] Last Admin: 12/02/19 12:14 Dose: 325 mg Documented by: Gabapentin (Neurontin) 800 mg PO BID@0600,1200 [facility] Last Admin: 12/02/19 23:02 Dose: 800 mg Documented by: Gabapentin (Neurontin) 1,200 mg PO QHS [facility] Last Admin: 12/02/19 23:03 Dose: 1,200 mg Documented by: Insulin Human Lispro (Humalog Kwikpen (Bkc)) 1 - 6 unit SC Q4H PRN PRN; Prot ocol PRN Reason: BG>/= 180, SEE PROTOCOL Levothyroxine Sodium (Synthroid) 175 mcg PO DAILY@0600 [facility] Last Admin: 12/03/19 06:24 Dose: 175 mcg Documented by: Lisinopril (Zestril) 10 mg PO LUNCH [facility] Last Admin: 12/02/19 12:16 Dose: 10 mg Documented by: Montelukast Sodium (Singulair) 10 mg PO QHS [facility] Last Admin: 12/02/19 23:01 Dose: 10 mg Documented by: Morphine Sulfate () 2 - 4 mg IV Q2H PRN PRN PRN Reason: Pain Score 6-10/10 Morphine Sulfate () 2 - 4 mg IV Q2H PRN PRN PRN Reason: Pain Score 6-10/10 Last Admin: 11/30/19 12:43 Dose: 4 mg Documented by: Fbiwi-2-Oklx Ethyl Esters (Lovaza) 2 gm PO LUNCH [facility] Last Admin: 12/02/19 12:13 Dose: 2 gm Documented by: Ondansetron HCl (Zofran) 4 mg IV Q8H PRN PRN PRN Reason: NAUSEA Oxycodone HCl (Oxyir) 5 - 10 mg PO Q4H PRN PRN PRN Reason: Pain Score 4-10/10 Last Admin: 12/02/19 08:45 Dose: 10 mg Documented by: Pantoprazole Sodium (Protonix) 20 mg PO DAILY [facility] Last Admin: 12/03/19 10:10 Dose: 20 mg Documented by: Pramipexole Dihydrochloride (Mirapex) 0.5 mg PO DAILY@0600 [facility] Last Admin: 12/03/19 06:24 Dose: 0.5 mg Documented by: Pramipexole Dihydrochloride (Mirapex) 1 mg PO LUNCH [facility] Last Admin: 12/02/19 12:15 Dose: 1 mg Documented by: Pramipexole Dihydrochloride (Mirapex) 1.5 mg PO QHS [facility] Last Admin: 12/02/19 23:00 Dose: 1.5 mg Documented by: Promethazine HCl (Phenergan) 12.5 mg IM Q6H PRN PRN; Protocol PRN Reason: NAUSEA/VOMITING Senna/Docusate Sodium (Senokot-S, Aileen-Colace) 2 tablet PO BID [facility] Last Admin: 12/03/19 10:11 Dose: Not Given Documented by: Sodium Chloride () 10 - 40 ml IV UD PRN PRN Reason: SALINE FLUSH Last Admin: 12/02/19 14:46 Dose: 10 ml Documented by: Venlafaxine HCl (Effexor Xr) 225 mg PO DAILY [facility] Last Admin: 12/03/19 10:09 Dose: 225 mg Documented by: Voriconazole (Vfend) 200 mg PO BID [facility] Last Admin: 12/03/19 10:10 Dose: 200 mg Documented by: Medical Necessity - Tobacco Use Smoking Status: Former smoker Assessment/Plan All Active Problems 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 Barton and reconstruction right inferior knee wound with right medial gastrocnemius muscular rotation flap 11/29/[address] Lazaro. History of multiple surgeries on right knee. 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 Previous cultures January 2019 grew Neteu parapsilosis, Enterobacter and staph aureus. ID consulted. Management per ortho. Patient is on chronic suppressive antibiotic therapy. Plan to continue doxycycline and Vfend. Wound cultures with no growth. Wound RN consult. 2. Hypertension-stable, continue lisinopril regimen. 3. Rheumatoid arthritis-previously on Plaquenil. No longer taking. 4. Hypothyroidism-continue Synthroid regimen. 5. Depression/anxiety-continue Effexor. 6. GERD/history of ulcer-continue famotidine. 7. 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 Previously on Xarelto which treatment has since completed. 8. RENNY-continue CPAP regimen. 9. Chronic COPD-patient reports very mild with no history of exacerbation. As needed albuterol aerosol. 10. Morbid obesity-encouraged diet and lifestyle medications. DVT prophylaxis-Lovenox Discharge planning: SNF/[facility] pending approval. This patient was seen by MERISSA Griggs under the supervision of Dr. Juarez. <Linda Juarez - Last Filed: 12/03/19 12:23> - Physical Exam Vitals/I&O's: Vital Signs Temp Pulse Resp BP Pulse Ox 98.3 F 73 18 124/69 H 98 12/03/19 09:06 12/03/19 09:06 12/03/19 10:00 12/03/19 09:06 12/03/19 09:06 Oxygen Flow Rate (L/min) 2 Oxygen Delivery Method Room Air Weight: 264 lb 5.348 oz Body Mass Index (BMI) 45.3 Finger Stick Blood Glucose 193 Intake and Output for Last 24 Hours 12/01/19 12/02/19 12/03/19 23:59 23:59 23:59 Intake Total 950 / 950 2250 / 2250 350 / 350 Output Total 2372 / 2372 1984 / 1984 828 / 828 Balance -1422 / -1422 265 / 265 -478 / -478 Microbiology Past 72 Hours 11/29/19 11:10 Tissue - Knee Gram Stain - Final 11/29/19 11:10 Tissue - Knee Wound Culture - Final No growth aerobically. 11/29/19 11:10 Tissue - Knee Anaerobic Culture - Preliminary No growth in 48 hours. 11/29/19 11:10 Tissue - Knee Gram Stain - Final 11/29/19 11:10 Tissue - Knee Wound Culture - Final No growth aerobically. 11/29/19 11:10 Tissue - Knee Anaerobic Culture - Preliminary No growth in 48 hours. 11/29/19 11:10 Tissue - Knee Gram Stain - Final 11/29/19 11:10 Tissue - Knee Wound Culture - Final No growth aerobically. 11/29/19 11:10 Tissue - Knee Anaerobic Culture - Preliminary No growth in 48 hours. Current Medications Acetaminophen (Tylenol) 1,000 mg PO Q8 [facility] Last Admin: 12/03/19 06:24 Dose: 1,000 mg Documented by: Ascorbic Acid (Vitamin C) 500 mg PO LUNCH [facility] Last Admin: 12/03/19 11:57 Dose: 500 mg Documented by: Cholecalciferol (Vitamin D (25mcg)) 5,000 unit PO DAILY@1200 [facility] Last Admin: 12/03/19 11:58 Dose: 5,000 unit Documented by: Diazepam (Valium) 5 mg PO 4X/DAY PRN PRN PRN Reason: SPASMS Last Admin: 12/02/19 08:45 Dose: 5 mg Documented by: Docusate Sodium (Colace) 100 mg PO BID [facility] Last Admin: 12/03/19 10:11 Dose: Not Given Documented by: Doxycycline Monohydrate (Doxycycline) 100 mg PO BID [facility] Last Admin: 12/03/19 10:10 Dose: 100 mg Documented by: Enoxaparin Sodium (Lovenox) 40 mg SC DAILY@0600 [facility] Last Admin: 12/03/19 06:24 Dose: 40 mg Documented by: Enteral Nutritional Formula (Ensure Surgery) 237 ml PO 0600,1300,2000 [facility] Last Admin: 12/03/19 06:23 Dose: 237 ml Documented by: Famotidine (Pepcid) 40 mg PO QHS [facility] Last Admin: 12/02/19 23:01 Dose: 40 mg Documented by: Ferrous Sulfate (Ferrous Sulfate) 325 mg PO DAILY@1200 [facility] Last Admin: 12/03/19 11:58 Dose: 325 mg Documented by: Gabapentin (Neurontin) 800 mg PO BID@0600,1200 [facility] Last Admin: 12/03/19 11:57 Dose: 800 mg Documented by: Gabapentin (Neurontin) 1,200 mg PO QHS [facility] Last Admin: 12/02/19 23:03 Dose: 1,200 mg Documented by: Insulin Human Lispro (Humalog Kwikpen (Bkc)) 1 - 6 unit SC Q4H PRN PRN; Protocol PRN Reason: BG>/= 180, SEE PROTOCOL Levothyroxine Sodium (Synthroid) 175 mcg PO DAILY@0600 [facility] Last Admin: 12/03/19 06:24 Dose: 175 mcg Documented by: Lisinopril (Zestril) 10 mg PO LUNCH [facility] Last Admin: 12/03/19 11:59 Dose: 10 mg Documented by: Montelukast Sodium (Singulair) 10 mg PO QHS [facility] Last Admin: 12/02/19 23:01 Dose: 10 mg Documented by: Morphine Sulfate () 2 - 4 mg IV Q2H PRN PRN PRN Reason: Pain Score 6-10/10 Morphine Sulfate () 2 - 4 mg IV Q2H PRN PRN PRN Reason: Pain Score 6-10/10 Last Admin: 11/30/19 12:43 Dose: 4 mg Documented by: [id number]-1-Zsuk Ethyl Esters (Lovaza) 2 gm PO LUNCH [facility] Last Admin: 12/03/19 11:57 Dose: 2 gm Documented by: Ondansetron HCl (Zofran) 4 mg IV Q8H PRN PRN PRN Reason: NAUSEA Oxycodone HCl (Oxyir) 5 - 10 mg PO Q4H PRN PRN PRN Reason: Pain Score 4-10/10 Last Admin: 12/02/19 08:45 Dose: 10 mg Documented by: Pantoprazole Sodium (Protonix) 20 mg PO DAILY [facility] Last Admin: 12/03/19 10:10 Dose: 20 mg Documented by: Pramipexole Dihydrochloride (Mirapex) 0.5 mg PO DAILY@0600 [facility] Last Admin: 12/03/19 06:24 Dose: 0.5 mg Documented by: Pramipexole Dihydrochloride (Mirapex) 1 mg PO LUNCH [facility] Last Admin: 12/03/19 12:00 Dose: 1 mg Documented by: Pramipexole Dihydrochloride (Mirapex) 1.5 mg PO QHS [facility] Last Admin: 12/02/19 23:00 Dose: 1.5 mg Documented by: Promethazine HCl (Phenergan) 12.5 mg IM Q6H PRN PRN; Protocol PRN Reason: NAUSEA/VOMITING Senna/Docusate Sodium (Senokot-S, Aileen-Colace) 2 tablet PO BID [facility] Last Admin: 12/03/19 10:11 Dose: Not Given Documented by: Sodium Chloride () 10 - 40 ml IV UD PRN PRN Reason: SALINE FLUSH Last Admin: 12/02/19 14:46 Dose: 10 ml Documented by: Venlafaxine HCl (Effexor Xr) 225 mg PO DAILY [facility] Last Admin: 12/03/19 10:09 Dose: 225 mg Documented by: Voriconazole (Vfend) 200 mg PO BID [facility] Last Admin: 12/03/19 10:10 Dose: 200 mg Documented by: Assessment/Plan Patient seen by MERISSA Griggs under my supervision Patient seen and examined. She has no complaints today. Pain is well tolerated. She is awaiting placement. Labs and vitals reviewed. She has remained hemodynamically stable. O/E: Vital Signs Temp Pulse Resp BP Pulse Ox 98.3 F 73 18 124/69 H 98 12/03/19 09:06 12/03/19 09:06 12/03/19 10:00 12/03/19 09:06 12/03/19 09:06 General: Alert, Oriented x3, Cooperative HEENT: Atraumatic, PERRLA, EOMI, Normocephalic Neck: Supple, No JVD, Negative Carotid Bruits Lungs: Clear to auscultation, Normal air movement Cardiovascular: Regular rate, No murmurs Abdomen: Bowel Sounds Present, Soft, Non Tender, Non-Distended Extremities: No clubbing, No cyanosis, No edema, Capillary Refill Less than 3 Seconds Skin: No rashes, No breakdown, - - Right knee postop dressing intact, with multiple drains in place Musculoskeletal: No Tenderness to Palpation of Joints or Extremities Neurological: Cranial nerves II-XII grossly intact, Neuro grossly intact Psych/Mental Status: Normal Affect, Appropriate Patient currently on doxycycline and voriconazole. All the wound cultures so far have been negative. ID on board. Lovenox 40 mg daily for DVT prophylaxis. Continue lisinopril and Synthroid. Awaiting placement. Plastic surgery on board for flap repair. Plan will be to discharge to the retirement on aspirin for 4 weeks for DVT prophylaxis. Rest as per MERISSA Griggs's notes which I reviewed and endorsed. Inpatient E&M: 99575 Subs Hosp L2
[2019-12-03] MEDS: 0.9% Saline Lock 10 ML Syringe IV ×2 (14:18→21:20)
[2019-12-03 15:40] VITALS: BP 138/81; PULSE 74; RESP 16; TEMP 37; O2SAT 98
[2019-12-03 15:42] VITALS: RESP 18
--- NOTE | 2019-12-03 18:39 | PN.SURG_ITS ---
Subjective: Postop #4 Patient is resting comfortably. - Physical Exam Vitals/I&O's: Vital Signs Temp Pulse Resp BP Pulse Ox 98.6 F 74 18 138/81 H 98 12/03/19 15:40 12/03/19 15:40 12/03/19 15:42 12/03/19 15:40 12/03/19 15:40 Oxygen Flow Rate (L/min) 2 Oxygen Delivery Method Room Air Weight: 264 lb 5.348 oz Body Mass Index (BMI) 45.3 Finger Stick Blood Glucose 193 Intake and Output for Last 24 Hours 12/01/19 12/02/19 12/03/19 23:59 23:59 23:59 Intake Total 950 / 950 2250 / 2250 2400 / 2400 Output Total 2372 / 2372 1984 / 1984 883 / 883 Balance -1422 / -1422 265 / 265 1517 / 1517 Drainage 85 ml yesterday. General: Alert, Oriented x3 HEENT: PERRLA, EOMI Oral: Moist Mucosa Neck: Supple Abdomen: Soft, Non-Distended Skin: Ulcer/ Wound - right inferior knee wound with muscle flap and skin graft. VAC in place. Minimal drainage in the canister. VAC will be changed on Wednesday.,, Incision - dry and intact. Neurological: Cranial nerves II-XII grossly intact Psych/Mental Status: Normal Affect, Appropriate Microbiology Past 72 Hours 11/29/19 11:10 Tissue - Knee Gram Stain - Final 11/29/19 11:10 Tissue - Knee Wound Culture - Final No growth aerobically. 11/29/19 11:10 Tissue - Knee Anaerobic Culture - Preliminary No growth in 48 hours. 11/29/19 11:10 Tissue - Knee Gram Stain - Final 11/29/19 11:10 Tissue - Knee Wound Culture - Final No growth aerobically. 11/29/19 11:10 Tissue - Knee Anaerobic Culture - Preliminary No growth in 48 hours. 11/29/19 11:10 Tissue - Knee Gram Stain - Final 11/29/19 11:10 Tissue - Knee Wound Culture - Final No growth aerobically. 11/29/19 11:10 Tissue - Knee Anaerobic Culture - Preliminary No growth in 48 hours. Current Medications Acetaminophen (Tylenol) 1,000 mg PO Q8 [facility] Last Admin: 12/03/19 14:19 Dose: 1,000 mg Documented by: Ascorbic Acid (Vitamin C) 500 mg PO LUNCH [facility] Last Admin: 12/03/19 11:57 Dose: 500 mg Documented by: Cholecalciferol (Vitamin D (25mcg)) 5,000 unit PO DAILY@1200 [facility] Last Admin: 12/03/19 11:58 Dose: 5,000 unit Documented by: Diazepam (Valium) 5 mg PO 4X/DAY PRN PRN PRN Reason: SPASMS Last Admin: 12/02/19 08:45 Dose: 5 mg Documented by: Docusate Sodium (Colace) 100 mg PO BID [facility] Last Admin: 12/03/19 10:11 Dose: Not Given Documented by: Doxycycline Monohydrate (Doxycycline) 100 mg PO BID [facility] Last Admin: 12/03/19 10:10 Dose: 100 mg Documented by: Enoxaparin Sodium (Lovenox) 40 mg SC DAILY@0600 [facility] Last Admin: 12/03/19 06:24 Dose: 40 mg Documented by: Enteral Nutritional Formula (Ensure Surgery) 237 ml PO 0600,1300,2000 [facility] Last Admin: 12/03/19 14:18 Dose: 237 ml Documented by: Famotidine (Pepcid) 40 mg PO QHS [facility] Last Admin: 12/02/19 23:01 Dose: 40 mg Documented by: Ferrous Sulfate (Ferrous Sulfate) 325 mg PO DAILY@1200 [facility] Last Admin: 12/03/19 11:58 Dose: 325 mg Documented by: Gabapentin (Neurontin) 800 mg PO BID@0600,1200 [facility] Last Admin: 12/03/19 11:57 Dose: 800 mg Documented by: Gabapentin (Neurontin) 1,200 mg PO QHS [facility] Last Admin: 12/02/19 23:03 Dose: 1,200 mg Documented by: Insulin Human Lispro (Humalog Kwikpen (Bkc)) 1 - 6 unit SC Q4H PRN PRN; Protocol PRN Reason: BG>/= 180, SEE PROTOCOL Levothyroxine Sodium (Synthroid) 175 mcg PO DAILY@0600 [facility] Last Admin: 12/03/19 06:24 Dose: 175 mcg Documented by: Lisinopril (Zestril) 10 mg PO LUNCH [facility] Last Admin: 12/03/19 11:59 Dose: 10 mg Documented by: Montelukast Sodium (Singulair) 10 mg PO QHS [facility] Last Admin: 12/02/19 23:01 Dose: 10 mg Documented by: Morphine Sulfate () 2 - 4 mg IV Q2H PRN PRN PRN Reason: Pain Score 6-10/10 Morphine Sulfate () 2 - 4 mg IV Q2H PRN PRN PRN Reason: Pain Score 6-10/10 Last Admin: 11/30/19 12:43 Dose: 4 mg Documented by: [id number] Ethyl Esters (Lovaza) 2 gm PO LUNCH [facility] Last Admin: 12/03/19 11:57 Dose: 2 gm Documented by: Ondansetron HCl (Zofran) 4 mg IV Q8H PRN PRN PRN Reason: NAUSEA Oxycodone HCl (Oxyir) 5 - 10 mg PO Q4H PRN PRN PRN Reason: Pain Score 4-10/10 Last Admin: 12/02/19 08:45 Dose: 10 mg Documented by: Pantoprazole Sodium (Protonix) 20 mg PO DAILY [facility] Last Admin: 12/03/19 10:10 Dose: 20 mg Documented by: Pramipexole Dihydrochloride (Mirapex) 0.5 mg PO DAILY@0600 [facility] Last Admin: 12/03/19 06:24 Dose: 0.5 mg Documented by: Pramipexole Dihydrochloride (Mirapex) 1 mg PO LUNCH [facility] Last Admin: 12/03/19 12:00 Dose: 1 mg Documented by: Pramipexole Dihydrochloride (Mirapex) 1.5 mg PO QHS [facility] Last Admin: 12/02/19 23:00 Dose: 1.5 mg Documented by: Promethazine HCl (Phenergan) 12.5 mg IM Q6H PRN PRN; Protocol PRN Reason: NAUSEA/VOMITING Senna/Docusate Sodium (Senokot-S, Aileen-Colace) 2 tablet PO BID [facility] Last Admin: 12/03/19 10:11 Dose: Not Given Documented by: Sodium Chloride () 10 - 40 ml IV UD PRN PRN Reason: SALINE FLUSH Last Admin: 12/03/19 14:18 Dose: 10 ml Documented by: Venlafaxine HCl (Effexor Xr) 225 mg PO DAILY [facility] Last Admin: 12/03/19 10:09 Dose: 225 mg Documented by: Voriconazole (Vfend) 200 mg PO BID [facility] Last Admin: 12/03/19 10:10 Dose: 200 mg Documented by: Medical Necessity - Tobacco Use Smoking Status: Former smoker Assessment/Plan All Active Problems 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 Nonhealing ulcer right inferior knee by tibial tubercle. 2. History of revision replacement right knee. 3. History of right TKA infection. 4. Former smoker. 5. Sural nerve injury right posterior leg. 6. s/p irrigation debridement with polyethylene exchange right total knee. Excision sinus tract right knee. Preliminary closure, final closure per plastics 7. s/p reconstruction right inferior knee wound with right medial gastrocnemius muscular rotation flap and STSG reconstruction from right lateral abdominal wall (45 cm2) and 13 cm right superior knee wound complex secondary wound closure and epineural repair sural nerve injury right posterior leg. Patient feels good with minimal pain complaints. Has less burning nerve pain. Expected with the sural nerve repair. She is already on Neurontin. VAC in place over the skin graft and muscle flap at 100 mmHg continuous suction. It will be changed twice a week, the next change is tomorrow. At the first VAC change, if there is a lot of moisture on the skin graft, will increase the suction to 125 mmHg. Operative cultures are negative thus far. Continue Doxycycline and Voriconazole that she was on preoperatively for oysterman suppression. Hgb stable at 12.7. Drainage was 85 ml yesterday. Operative blood loss was 350 ml. Prealbumin was 24.7. Encourage nutritional supplementation with protein to help the healing process. Maintain knee brace for up to 4 weeks. Continue non weight bearing. Continue Lovenox while hospitalized. Will be discharged on Aspirin for DVT prophylaxis. Patient has decided to go to an ECF for a short stay after discharge until she is comfortable being at home alone. ECF has been approved. Awaiting precert. [facility].
[2019-12-03 21:07] VITALS: BP 137/85; PULSE 72; RESP 16; TEMP 36.6; O2SAT 95
[2019-12-03] MEDS: Famotidine 20 MG Tablet 40 MG PO (21:19)
[2019-12-03] MEDS: Gabapentin 600 MG Tablet 1200 MG PO (21:20)
[2019-12-03] MEDS: Montelukast 10 MG Tablet PO (21:20)
[2019-12-03] MEDS: Pramipexole Di-HCl 0.5 MG Tablet 1.5 MG PO (21:20)
[2019-12-04 03:23] VITALS: BP 130/71; PULSE 74; RESP 17; TEMP 36.7; O2SAT 96
[2019-12-04] MEDS: Enoxaparin 40 MG/0.4 ML Syringe SC (06:02)
[2019-12-04] MEDS: Acetaminophen 500 MG Tablet 1000 MG PO ×3 (06:05→21:14)
[2019-12-04] MEDS: Levothyroxine 175 MCG Tablet PO (06:06)
[2019-12-04] MEDS: Gabapentin 800 MG Tablet PO ×2 (06:06→11:45)
[2019-12-04] MEDS: Pramipexole Di-HCl 0.5 MG Tablet PO (06:06)
--- NOTE | 2019-12-04 07:07 | PCM.PN.ORT ---
Subjective: The patient was sitting in bedside chair upon examination. Patient denies any chest pain, shortness of breath, dizziness, lightheadedness, nausea or vomiting, or calf pain. Pain is controlled on medications. No adverse overnight events. Patient has no pain today. We are waiting on pre-CERT from insurance to be discharged to [facility]. Objective: Vital signs stable and afebrile. Patient is able to plantarflex and dorsiflex actively. Sensation is intact to light touch to saphenous, sural, superficial and deep peroneal, and tibial distribution. Dressing is without any breakthrough drainage Knee immobilizer fitting well with drains still present from Dr. Lazaro Negative Homans bilaterally, negative signs and symptoms of DVT. - Physical Exam Vitals/I&O's: Vital Signs Temp Pulse Resp BP Pulse Ox 98.1 F 74 17 130/71 H 96 12/04/19 03:23 12/04/19 03:23 12/04/19 03:23 12/04/19 03:23 12/04/19 03:23 Oxygen Flow Rate (L/min) 2 Oxygen Delivery Method Room Air Weight: 119.9 kg Body Mass Index (BMI) 45.3 Finger Stick Blood Glucose 193 Intake and Output for Last 24 Hours 12/02/19 12/03/19 12/04/19 23:59 23:59 23:59 Intake Total 2250 / 2250 2400 / 2750 350 / 350 Output Total 1984 883 / 1556 686 / 686 Balance 265 / 265 1517 / 1194 -336 / -336 General: Alert, Oriented x3, Cooperative, No apparent distress Microbiology Past 72 Hours 11/29/19 11:10 Tissue - Knee Gram Stain - Final 11/29/19 11:10 Tissue - Knee Wound Culture - Final No growth aerobically. 11/29/19 11:10 Tissue - Knee Anaerobic Culture - Preliminary No growth in 48 hours. 11/29/19 11:10 Tissue - Knee Gram Stain - Final 11/29/19 11:10 Tissue - Knee Wound Culture - Final No growth aerobically. 11/29/19 11:10 Tissue - Knee Anaerobic Culture - Preliminary No growth in 48 hours. 11/29/19 11:10 Tissue - Knee Gram Stain - Final 11/29/19 11:10 Tissue - Knee Wound Culture - Final No growth aerobically. 11/29/19 11:10 Tissue - Knee Anaerobic Culture - Preliminary No growth in 48 hours. Current Medications Acetaminophen (Tylenol) 1,000 mg PO Q8 [facility] Last Admin: 12/04/19 06:05 Dose: 1,000 mg Documented by: Ascorbic Acid (Vitamin C) 500 mg PO LUNCH [facility] Last Admin: 12/03/19 11:57 Dose: 500 mg Documented by: Cholecalciferol (Vitamin D (25mcg)) 5,000 unit PO DAILY@1200 [facility] Last Admin: 12/03/19 11:58 Dose: 5,000 unit Documented by: Diazepam (Valium) 5 mg PO 4X/DAY PRN PRN PRN Reason: SPASMS Last Admin: 12/02/19 08:45 Dose: 5 mg Documented by: Docusate Sodium (Colace) 100 mg PO BID [facility] Last Admin: 12/03/19 21:17 Dose: Not Given Documented by: Doxycycline Monohydrate (Doxycycline) 100 mg PO BID [facility] [place] Last Admin: 12/03/19 21:20 Dose: 100 mg Documented by: Enoxaparin Sodium (Lovenox) 40 mg SC DAILY@0600 [facility] Last Admin: 12/04/19 06:02 Dose: 40 mg Documented by: Enteral Nutritional Formula (Ensure Surgery) 237 ml PO 0600,1300,2000 [facility] Last Admin: 12/04/19 06:02 Dose: Not Given Documented by: Famotidine (Pepcid) 40 mg PO QHS [facility] Last Admin: 12/03/19 21:19 Dose: 40 mg Documented by: Ferrous Sulfate (Ferrous Sulfate) 325 mg PO DAILY@1200 [facility] Last Admin: 12/03/19 11:58 Dose: 325 mg Documented by: Gabapentin (Neurontin) 800 mg PO BID@0600,1200 [facility] Last Admin: 12/04/19 06:06 Dose: 800 mg Documented by: Gabapentin (Neurontin) 1,200 mg PO QHS [facility] Last Admin: 12/03/19 21:20 Dose: 1,200 mg Documented by: Insulin Human Lispro (Humalog Kwikpen (Bkc)) 1 - 6 unit SC Q4H PRN PRN; Protocol PRN Reason: BG>/= 180, SEE PROTOCOL Levothyroxine Sodium (Synthroid) 175 mcg PO DAILY@0600 [facility] [place] Last Admin: 12/04/19 06:06 Dose: 175 mcg Documented by: Lisinopril (Zestril) 10 mg PO LUNCH [facility] [place] Last Admin: 12/03/19 11:59 Dose: 10 mg Documented by: Montelukast Sodium (Singulair) 10 mg PO QHS [facility] [place] Last Admin: 12/03/19 21:20 Dose: 10 mg Documented by: Morphine Sulfate () 2 - 4 mg IV Q2H PRN PRN PRN Reason: Pain Score 6-10/10 Morphine Sulfate () 2 - 4 mg IV Q2H PRN PRN PRN Reason: Pain Score 6-10/10 Last Admin: 11/30/19 12:43 Dose: 4 mg Documented by: [id number] Ethyl Esters (Lovaza) 2 gm PO LUNCH [facility] [place] Last Admin: 12/03/19 11:57 Dose: 2 gm Documented by: Ondansetron HCl (Zofran) 4 mg IV Q8H PRN PRN PRN Reason: NAUSEA Oxycodone HCl (Oxyir) 5 - 10 mg PO Q4H PRN PRN PRN Reason: Pain Score 4-10/10 Last Admin: 12/02/19 08:45 Dose: 10 mg Documented by: Pantoprazole Sodium (Protonix) 20 mg PO DAILY [facility] [place] Last Admin: 12/03/19 10:10 Dose: 20 mg Documented by: Pramipexole Dihydrochloride (Mirapex) 0.5 mg PO DAILY@0600 [facility] [place] Last Admin: 12/04/19 06:06 Dose: 0.5 mg Documented by: Pramipexole Dihydrochloride (Mirapex) 1 mg PO LUNCH [facility] [place] Last Admin: 12/03/19 12:00 Dose: 1 mg Documented by: Pramipexole Dihydrochloride (Mirapex) 1.5 mg PO QHS [facility] [place] Last Admin: 12/03/19 21:20 Dose: 1.5 mg Documented by: Promethazine HCl (Phenergan) 12.5 mg IM Q6H PRN PRN; Protocol PRN Reason: NAUSEA/VOMITING Senna/Docusate Sodium (Senokot-S, Aileen-Colace) 2 tablet PO BID [facility] [place] Last Admin: 12/03/19 21:17 Dose: Not Given Documented by: Sodium Chloride () 10 - 40 ml IV UD PRN PRN Reason: SALINE FLUSH Last Admin: 12/03/19 21:20 Dose: 10 ml Documented by: Venlafaxine HCl (Effexor Xr) 225 mg PO DAILY [facility] Last Admin: 12/03/19 10:09 Dose: 225 mg Documented by: Voriconazole (Vfend) 200 mg PO BID [facility] Last Admin: 12/03/19 21:17 Dose: 200 mg Documented by: Medical Necessity - Tobacco Use Smoking Status: Former smoker Assessment/Plan All Active Problems 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 S/P irrigation debridement with polyethylene exchange right total knee with excision of sinus tract. Plastic surgery also performed flap repair POD #5 2. Continue Pain Medications: Tylenol and OxyIR 3. DVT Prophylaxis: Currently on Lovenox while in hospital. Plan will be to transition to aspirin once discharge for 4 weeks for DVT prophylaxis. 4. PT/OT: Continue with knee immobilizer right knee. Currently she will be nonweightbearing and motion restrictions per plastic surgery and Dr. Lazaro. No range of motion for 1 month. Range of motion and weightbearing status will be directed by Dr. Lazaro secondary to his closure. 5. Encouraged Incentive Spirometry 6. Continue postoperative medical management per medicine 7. Continue with current drains per Dr. Lazaro 8. Infectious disease consultation: Appreciate input on management of antibiotics. Cultures Carmen findings are no growth and organisms seen. 9. Disposition: Currently waiting on pre-CERT for patient to go to the [facility]. Plan will be for discharge tomorrow as long as pre-CERT has been obtained. Patient's range of motion and weightbearing restrictions are going to be directed by Dr. Lazaro secondary to his closure. Patient's additional night stay are secondary to plastics with Dr. Lazaro to monitor the wound. From an orthopedic standpoint patient is stable. We are just waiting on insurance for discharge. Anticipate discharge today as long as pre-CERT has been obtained. Refer to Dr. Lazaro with regards to wound VAC recommendations, range of motion restrictions, drain removal, and weightbearing status. I have reviewed the [place] Automated Rx Reporting System (OARRS) report for this patient for refill pattern and other prescriber involvement as part of the appropriate surveillance for the provision of acute and chronic controlled medications. The report was requested and reviewed on the date of this entry and was considered in the prescribing process.
--- NOTE | 2019-12-04 07:16 | PCM.DC.TKR ---
Discharge Diet: No Restrictions Ice area for (Minutes): 20 - Every 1-2 hours while awake Weight Bearing Status: No weight bearing - With knee immobilizer. Weightbearing and range of motion restrictions are directed by Dr. Lazaro Elevate: Operative Extremity Additional Instructions: Wound VAC: Wound VAC directions are per Dr. Lazaro. Continue with wound VAC over the skin graft and muscle flap at 100 mmHg. change twice weekly. If that first VAC change if there is a lot of moisture on the skin graft will increase the suction to 125 mmHg. Continue with drains per Dr. Lazaro Range of motion, weightbearing status are also directed by Dr. Lazaro. Continue nonweightbearing and no range of motion for 1 month. Continue with the knee immobilizer. Allergies/Adverse Reactions: Allergies hydrocodone bitartrate [From Lortab] Allergy (Intermediate, Verified 09/06/19 07:31) Other lips swell, ataxia etodolac Allergy (Verified 09/06/19 07:31) Unknown misoprostol Allergy (Verified 09/06/19 07:31) Unknown celecoxib Adverse Reaction (Intermediate, Verified 09/06/19 07:31) Other heart palpitations diclofenac [Diclofenac] Adverse Reaction (Mild, Verified 09/06/19 07:31) Abd cramps/diarrhea ketorolac tromethamine [From Toradol] Adverse Reaction (Mild, Verified 09/06/19 07:31) Other balance issues metoclopramide HCl [From Reglan] Adverse Reaction (Mild, Verified 09/06/19 07:31) Other worsens restless leg atorvastatin [From Lipitor] Adverse Reaction (Verified 09/06/19 07:31) Other FACE SPASMS clindamycin Adverse Reaction (Verified 09/06/19 07:31) Mucosal lesions Medications to take at Discharge Levothyroxine [Synthroid] 175 mcg PO DAILY 09/01/13 Omeprazole [Prilosec] 20 mg PO DAILY 12/13/16 Cholecalciferol (Vitamin D3) [Vitamin D3] 5,000 unit PO DAILY@1200 01/25/17 [place]-3 Fatty Acids/Fish Oil [Fish Oil 1,000 mg Capsule] 2,000 mg PO LUNCH 03/21/18 Gabapentin 800 mg PO BID 08/01/18 Gabapentin [Neurontin] 1,200 mg PO QHS 08/01/18 Lisinopril [Zestril] 10 mg PO LUNCH 08/01/18 Pramipexole Di-HCl [Pramipexole Dihydrochloride] 1 mg PO LUNCH 08/01/18 Pramipexole Di-HCl [Pramipexole Dihydrochloride] 1.5 tab PO QHS 08/01/18 Venlafaxine HCl [Effexor Xr] 1 tab PO DAILY 08/01/18 Venlafaxine HCl [Venlafaxine HCl ER] 1 tab PO DAILY 08/01/18 Aspirin [Aspir-Low] 81 mg PO LUNCH 05/02/19 Famotidine [Pepcid] 40 mg PO QHS 05/02/19 Ferrous Sulfate 325 mg PO DAILY 08/30/19 Ascorbic Acid [Vitamin C] 500 mg PO LUNCH 11/28/19 Doxycycline 100 mg PO BID 11/28/19 Montelukast [Singulair] 10 mg PO QHS 11/28/19 Pramipexole Di-HCl [Mirapex] 0.5 mg PO DAILY 11/28/19 Voriconazole 200 mg PO BID 11/28/19 Acetaminophen [Tylenol] 1,000 mg PO Q8 tab 12/04/19 Aspirin E.C. [Ecotrin] 81 mg PO BIDCM 30 Days tab 12/04/19 Oxycodone [Oxyir] 5 - 10 mg PO Q4H PRN PRN 3 Days #36 tab 12/04/19 Senna/Docusate Sodium [Senokot-S] 2 tab PO BID tab 12/04/19 The following prescriptions were given: Aspirin E.C. [Ecotrin] 81 mg PO BIDCM 30 Days tab Oxycodone [Oxyir] 5 - 10 mg PO Q4H PRN PRN 3 Days #36 tab PRN Reason: Pain Score 4-10/10 Prescription Printed Primary Care Physician: Gustavo Ceballos MD [Primary Care Provider] - Test Results: Test results from this visit will be discussed in further detail at your follow-up appointment, if applicable. Please Follow Up With: Hudson Lazaro MD When: December 19, 2019 Please Follow Up With: Major Barton MD When: Will need scheduled appointment in 2 weeks
[2019-12-04 08:45] VITALS: BP 130/59; PULSE 73; RESP 18; TEMP 37.4; O2SAT 93
[2019-12-04] MEDS: Venlafaxine XR 75 MG Capsule 225 MG PO (08:46)
[2019-12-04] MEDS: Doxycycline 100 MG CAPSULE PO ×2 (08:46→21:15)
[2019-12-04] MEDS: Pantoprazole Sodium 20 MG Tablet PO (08:47)
[2019-12-04] MEDS: Voriconazole 200 MG Tablet PO ×2 (08:47→21:14)
--- NOTE | 2019-12-04 10:13 | PCM.PROGNOTE ---
<Reba Correa - Last Filed: 12/04/19 10:23> Subjective: Patient seen and examined. No acute events overnight. Denies complaints. Awaiting SNF approval. - Physical Exam Vitals/I&O's: Vital Signs Temp Pulse Resp BP Pulse Ox 99.3 F H 73 18 130/59 H 93 12/04/19 08:45 12/04/19 08:45 12/04/19 08:45 12/04/19 08:45 12/04/19 08:45 Oxygen Flow Rate (L/min) 2 Oxygen Delivery Method Room Air Weight: 264 lb 5.348 oz Body Mass Index (BMI) 45.3 Finger Stick Blood Glucose 193 Intake and Output for Last 24 Hours 12/02/19 12/03/19 12/04/19 23:59 23:59 23:59 Intake Total 2250 / 2250 2400 / 2750 750 / 750 Output Total 1984 883 / 1556 686 / 686 Balance 265 / 265 1517 / 1194 64 / 64 General: Alert, Oriented x3, Cooperative HEENT: Atraumatic, PERRLA, EOMI, Normocephalic Neck: Supple, No JVD, Negative Carotid Bruits Lungs: Clear to auscultation, Normal air movement Cardiovascular: Regular rate, Regular Rhythm, Normal S1, Normal S2, No murmurs Abdomen: Bowel Sounds Present, Soft, Non Tender Extremities: No clubbing, No cyanosis, No edema, Capillary Refill Less than 3 Seconds Skin: No rashes, No breakdown, - - Right knee postoperative wound, dressing/drain intact. Musculoskeletal: No Tenderness to Palpation of Joints or Extremities Neurological: Cranial nerves II-XII grossly intact, Neuro grossly intact Psych/Mental Status: Normal Affect, Appropriate Microbiology Past 72 Hours 11/29/19 11:10 Tissue - Knee Gram Stain - Final 11/29/19 11:10 Tissue - Knee Wound Culture - Final No growth aerobically. 11/29/19 11:10 Tissue - Knee Anaerobic Culture - Final No growth in 5 days. 11/29/19 11:10 Tissue - Knee Gram Stain - Final 11/29/19 11:10 Tissue - Knee Wound Culture - Final No growth aerobically. 11/29/19 11:10 Tissue - Knee Anaerobic Culture - Final No growth in 5 days. 11/29/19 11:10 Tissue - Knee Gram Stain - Final 11/29/19 11:10 Tissue - Knee Wound Culture - Final No growth aerobically. 11/29/19 11:10 Tissue - Knee Anaerobic Culture - Final No growth in 5 days. Current Medications Acetaminophen (Tylenol) 1,000 mg PO Q8 [facility] Last Admin: 12/04/19 06:05 Dose: 1,000 mg Documented by: Ascorbic Acid (Vitamin C) 500 mg PO LUNCH [facility] Last Admin: 12/03/19 11:57 Dose: 500 mg Documented by: Cholecalciferol (Vitamin D (25mcg)) 5,000 unit PO DAILY@1200 [facility] Last Admin: 12/03/19 11:58 Dose: 5,000 unit Documented by: Diazepam (Valium) 5 mg PO 4X/DAY PRN PRN PRN Reason: SPASMS Last Admin: 12/02/19 08:45 Dose: 5 mg Documented by: Docusate Sodium (Colace) 100 mg PO BID [facility] Last Admin: 12/04/19 08:46 Dose: Not Given Documented by: Doxycycline Monohydrate (Doxycycline) 100 mg PO BID [facility] Last Admin: 12/04/19 08:46 Dose: 100 mg Documented by: Enoxaparin Sodium (Lovenox) 40 mg SC DAILY@0600 [facility] Last Admin: 12/04/19 06:02 Dose: 40 mg Documented by: Enteral Nutritional Formula (Ensure Surgery) 237 ml PO 0600,1300,2000 [facility] Last Admin: 12/04/19 06:02 Dose: Not Given Documented by: Famotidine (Pepcid) 40 mg PO QHS [facility] Last Admin: 12/03/19 21:19 Dose: 40 mg Documented by: Ferrous Sulfate (Ferrous Sulfate) 325 mg PO DAILY@1200 [facility] Last Admin: 12/03/19 11:58 Dose: 325 mg Documented by: Gabapentin (Neurontin) 800 mg PO BID@0600,1200 [facility] Last Admin: 12/04/19 06:06 Dose: 800 mg Documented by: Gabapentin (Neurontin) 1,200 mg PO QHS [facility] Last Admin: 12/03/19 21:20 Dose: 1,200 mg Documented by: Insulin Human Lispro (Humalog Kwikpen (Bkc)) 1 - 6 unit SC Q4H PRN PRN; Protocol PRN Reason: BG>/= 180, SEE PROTOCOL Levothyroxine Sodium (Synthroid) 175 mcg PO DAILY@0600 [facility] Last Admin: 12/04/19 06:06 Dose: 175 mcg Documented by: Lisinopril (Zestril) 10 mg PO LUNCH [facility] Last Admin: 12/03/19 11:59 Dose: 10 mg Documented by: Montelukast Sodium (Singulair) 10 mg PO QHS [facility] Last Admin: 12/03/19 21:20 Dose: 10 mg Documented by: Morphine Sulfate () 2 - 4 mg IV Q2H PRN PRN PRN Reason: Pain Score 6-10/10 Morphine Sulfate () 2 - 4 mg IV Q2H PRN PRN PRN Reason: Pain Score 6-10/10 Last Admin: 11/30/19 12:43 Dose: 4 mg Documented by: [id number] Ethyl Esters (Lovaza) 2 gm PO LUNCH [facility] Last Admin: 12/03/19 11:57 Dose: 2 gm Documented by: Ondansetron HCl (Zofran) 4 mg IV Q8H PRN PRN PRN Reason: NAUSEA Oxycodone HCl (Oxyir) 5 - 10 mg PO Q4H PRN PRN PRN Reason: Pain Score 4-10/10 Last Admin: 12/02/19 08:45 Dose: 10 mg Documented by: Pantoprazole Sodium (Protonix) 20 mg PO DAILY [facility] Last Admin: 12/04/19 08:47 Dose: 20 mg Documented by: Pramipexole Dihydrochloride (Mirapex) 0.5 mg PO DAILY@0600 [facility] Last Admin: 12/04/19 06:06 Dose: 0.5 mg Documented by: Pramipexole Dihydrochloride (Mirapex) 1 mg PO LUNCH [facility] Last Admin: 12/03/19 12:00 Dose: 1 mg Documented by: Pramipexole Dihydrochloride (Mirapex) 1.5 mg PO QHS [facility] Last Admin: 12/03/19 21:20 Dose: 1.5 mg Documented by: Promethazine HCl (Phenergan) 12.5 mg IM Q6H PRN PRN; Protocol PRN Reason: NAUSEA/VOMITING Senna/Docusate Sodium (Senokot-S, Aileen-Colace) 2 tablet PO BID [facility] Last Admin: 12/04/19 08:46 Dose: Not Given Documented by: Sodium Chloride () 10 - 40 ml IV UD PRN PRN Reason: SALINE FLUSH Last Admin: 12/03/19 21:20 Dose: 10 ml Documented by: Venlafaxine HCl (Effexor Xr) 225 mg PO DAILY [facility] Last Admin: 12/04/19 08:46 Dose: 225 mg Documented by: Voriconazole (Vfend) 200 mg PO BID [facility] Last Admin: 12/04/19 08:47 Dose: 200 mg Documented by: Medical Necessity - Tobacco Use Smoking Status: Former smoker Assessment/Plan All Active Problems 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 Barton and reconstruction right inferior knee wound with right medial gastrocnemius muscular rotation flap 11/29/[address] Lazaro. History of multiple surgeries on right knee. 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 Previous cultures January 2019 grew Neetu parapsilosis, Enterobacter and staph aureus. ID consulted. Management per ortho. Patient is on chronic suppressive antibiotic therapy. Plan to continue doxycycline and Vfend. Wound cultures with no growth. Wound RN consult. [facility] pending acceptance. 2. Hypertension-stable, continue lisinopril regimen. 3. Rheumatoid arthritis-previously on Plaquenil. No longer taking. 4. Hypothyroidism-continue Synthroid regimen. 5. Depression/anxiety-continue Effexor. 6. GERD/history of ulcer-continue famotidine. 7. 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 Previously on Xarelto which treatment has since completed. 8. RENNY-continue CPAP regimen. 9. Chronic COPD-patient reports very mild with no history of exacerbation. As needed albuterol aerosol. 10. Morbid obesity-encouraged diet and lifestyle medications. DVT prophylaxis-Lovenox Discharge planning: [facility]/[place] pending approval. Hospitalist services will sign off at this time. Please notify if any new medical concerns arise. Patient is stable medically for discharge. This patient was seen by MERISSA Griggs under the supervision of Dr. Mendosa. <Car Mendosa - Last Filed: 12/04/19 15:49> - Physical Exam Vitals/I&O's: Vital Signs Temp Pulse Resp BP Pulse Ox 99.3 F H 73 18 130/59 H 93 12/04/19 08:45 12/04/19 08:45 12/04/19 08:45 12/04/19 08:45 12/04/19 08:45 Oxygen Flow Rate (L/min) 2 Oxygen Delivery Method Room Air Weight: 264 lb 5.348 oz Body Mass Index (BMI) 45.3 Finger Stick Blood Glucose 193 Intake and Output for Last 24 Hours 12/02/19 12/03/19 12/04/19 23:59 23:59 23:59 Intake Total 2250 / 2250 2400 / 2750 1350 / 1350 Output Total 1984 / 1984 883 / 1556 686 / 686 Balance 265 / 265 1517 / 1194 664 / 664 Microbiology Past 72 Hours 11/29/19 11:10 Tissue - Knee Gram Stain - Final 11/29/19 11:10 Tissue - Knee Wound Culture - Final No growth aerobically. 11/29/19 11:10 Tissue - Knee Anaerobic Culture - Final No growth in 5 days. 11/29/19 11:10 Tissue - Knee Gram Stain - Final 11/29/19 11:10 Tissue - Knee Wound Culture - Final No growth aerobically. 11/29/19 11:10 Tissue - Knee Anaerobic Culture - Final No growth in 5 days. 11/29/19 11:10 Tissue - Knee Gram Stain - Final 11/29/19 11:10 Tissue - Knee Wound Culture - Final No growth aerobically. 11/29/19 11:10 Tissue - Knee Anaerobic Culture - Final No growth in 5 days. Current Medications Acetaminophen (Tylenol) 1,000 mg PO Q8 [facility] Last Admin: 12/04/19 13:34 Dose: 1,000 mg Documented by: Ascorbic Acid (Vitamin C) 500 mg PO LUNCH [facility] Last Admin: 12/04/19 11:45 Dose: 500 mg Documented by: Cholecalciferol (Vitamin D (25mcg)) 5,000 unit PO DAILY@1200 [facility] Last Admin: 12/04/19 11:45 Dose: 5,000 unit Documented by: Diazepam (Valium) 5 mg PO 4X/DAY PRN PRN PRN Reason: SPASMS Last Admin: 12/02/19 08:45 Dose: 5 mg Documented by: Docusate Sodium (Colace) 100 mg PO BID [facility] Last Admin: 12/04/19 08:46 Dose: Not Given Documented by: Doxycycline Monohydrate (Doxycycline) 100 mg PO BID [facility] Last Admin: 12/04/19 08:46 Dose: 100 mg Documented by: Enoxaparin Sodium (Lovenox) 40 mg SC DAILY@0600 [facility] Last Admin: 12/04/19 06:02 Dose: 40 mg Documented by: Enteral Nutritional Formula (Ensure Surgery) 237 ml PO 0600,1300,2000 [facility] Last Admin: 12/04/19 13:33 Dose: 237 ml Documented by: Famotidine (Pepcid) 40 mg PO QHS [facility] Last Admin: 12/03/19 21:19 Dose: 40 mg Documented by: Ferrous Sulfate (Ferrous Sulfate) 325 mg PO DAILY@1200 [facility] Last Admin: 12/04/19 11:45 Dose: 325 mg Documented by: Gabapentin (Neurontin) 800 mg PO BID@0600,1200 [facility] Last Admin: 12/04/19 11:45 Dose: 800 mg Documented by: Gabapentin (Neurontin) 1,200 mg PO QHS [facility] Last Admin: 12/03/19 21:20 Dose: 1,200 mg Documented by: Insulin Human Lispro (Humalog Kwikpen (Bkc)) 1 - 6 unit SC Q4H PRN PRN; Protocol PRN Reason: BG>/= 180, SEE PROTOCOL Levothyroxine Sodium (Synthroid) 175 mcg PO DAILY@0600 [facility] Last Admin: 12/04/19 06:06 Dose: 175 mcg Documented by: Lisinopril (Zestril) 10 mg PO LUNCH [facility] Last Admin: 12/04/19 11:45 Dose: 10 mg Documented by: Montelukast Sodium (Singulair) 10 mg PO QHS [facility] Last Admin: 12/03/19 21:20 Dose: 10 mg Documented by: Morphine Sulfate () 2 - 4 mg IV Q2H PRN PRN PRN Reason: Pain Score 6-10/10 Morphine Sulfate () 2 - 4 mg IV Q2H PRN PRN PRN Reason: Pain Score 6-10/10 Last Admin: 11/30/19 12:43 Dose: 4 mg Documented by: [id number]-Rdex Ethyl Esters (Lovaza) 2 gm PO LUNCH [facility] Last Admin: 12/04/19 11:45 Dose: 2 gm Documented by: Ondansetron HCl (Zofran) 4 mg IV Q8H PRN PRN PRN Reason: NAUSEA Oxycodone HCl (Oxyir) 5 - 10 mg PO Q4H PRN PRN PRN Reason: Pain Score 4-10/10 Last Admin: 12/02/19 08:45 Dose: 10 mg Documented by: Pantoprazole Sodium (Protonix) 20 mg PO DAILY [facility] Last Admin: 12/04/19 08:47 Dose: 20 mg Documented by: Pramipexole Dihydrochloride (Mirapex) 0.5 mg PO DAILY@0600 [facility] Last Admin: 12/04/19 06:06 Dose: 0.5 mg Documented by: Pramipexole Dihydrochloride (Mirapex) 1 mg PO LUNCH [facility] Last Admin: 12/04/19 11:45 Dose: 1 mg Documented by: Pramipexole Dihydrochloride (Mirapex) 1.5 mg PO QHS [facility] Last Admin: 12/03/19 21:20 Dose: 1.5 mg Documented by: Promethazine HCl (Phenergan) 12.5 mg IM Q6H PRN PRN; Protocol PRN Reason: NAUSEA/VOMITING Senna/Docusate Sodium (Senokot-S, Aileen-Colace) 2 tablet PO BID [facility] Last Admin: 12/04/19 08:46 Dose: Not Given Documented by: Sodium Chloride () 10 - 40 ml IV UD PRN PRN Reason: SALINE FLUSH Last Admin: 12/03/19 21:20 Dose: 10 ml Documented by: Venlafaxine HCl (Effexor Xr) 225 mg PO DAILY [facility] Last Admin: 12/04/19 08:46 Dose: 225 mg Documented by: Voriconazole (Vfend) 200 mg PO BID [facility] Last Admin: 12/04/19 08:47 Dose: 200 mg Documented by: Addendum: Dr. Mendosa I personally examined the patient and reviewed the chart. I agree with the above. 59-year-old female presents to the hospital for an infected right knee replacement. She underwent surgery on 11/29/2019. Wound cultures so far have been negative. She did have a history of Neetu in her right knee and she had removal of an antibiotic spacer and placement of antibiotic spacer. In January 2019 she had another infection of Neetu, Enterobacter and staph. Currently she is doing well and was seen as she was getting up at bedside to work with physical therapy. Pain is controlled. Currently [facility] facility placement, will continue to follow as needed. Inpatient E&M: 95824 Subs Hosp L2
--- NOTE | 2019-12-04 10:14 | CASEMGMT ---
Addendum entered by Queenie Philippe 12/04/19 12:09: STU placed a call to Jackelyn at [facility] who states pre-cert is still pending. Original Note: Social Work Note STU faxed updated clinicals to [facility]. Plan: [facility] pending pre-cert Queenie Philippe TREATMENT PLANT MECHANIC, WET MACHINE TENDER
[2019-12-04] MEDS: Lisinopril 10 MG Tablet PO (11:45)
[2019-12-04] MEDS: Ferrous Sulfate 325 MG Tablet PO (11:45)
[2019-12-04] MEDS: Omega-3 Acid Ethyl Esters 1 GM Capsule 2 GM PO (11:45)
[2019-12-04] MEDS: Ascorbic Acid 500 MG Tablet PO (11:45)
[2019-12-04] MEDS: Pramipexole Di-HCl 1 MG Tablet PO (11:45)
[2019-12-04] MEDS: Ensure Surgery 237 ML LIQUID PO ×2 (13:33→21:14)
--- NOTE | 2019-12-04 13:37 | NURSING ---
wound photo: right leg
--- NOTE | 2019-12-04 13:38 | NURSING ---
wound photo: right posterior leg
[2019-12-04 15:25] VITALS: BP 146/71; PULSE 80; RESP 16; TEMP 36.8; O2SAT 95
--- NOTE | 2019-12-04 16:24 | CASEMGMT ---
Social Work Note SW spoke with Jackelyn at [facility], pre-cert is still pending. Plan: [facility] pending pre-cert Queenie Philippe SAFETY COUNCIL DIRECTOR, CNA HHA
--- NOTE | 2019-12-04 17:00 | PN.SURG_ITS ---
Subjective: Postop #5 Patient is resting comfortably. - Physical Exam Vitals/I&O's: Vital Signs Temp Pulse Resp BP Pulse Ox 98.2 F 80 16 146/71 H 95 12/04/19 15:25 12/04/19 15:25 12/04/19 15:25 12/04/19 15:25 12/04/19 15:25 Oxygen Flow Rate (L/min) 2 Oxygen Delivery Method Room Air Weight: 264 lb 5.348 oz Body Mass Index (BMI) 45.3 Finger Stick Blood Glucose 193 Intake and Output for Last 24 Hours 12/02/19 12/03/19 12/04/19 23:59 23:59 23:59 Intake Total 2250 / 2250 2400 / 2750 1350 / 1350 Output Total 1984 883 / 1556 686 / 686 Balance 265 / 265 1517 / 1194 664 / 664 Drainage 83 ml. General: Alert, Oriented x3 HEENT: PERRLA, EOMI Oral: Moist Mucosa Neck: Supple Abdomen: Soft, Non-Distended Skin: Ulcer/ Wound - right inferior knee wound with muscle flap and skin graft. Muscle flap is pink and viable. Skin graft shows good adherence. Small amount of vascular ingrowth seen. Since she may be going to the ECF today, the VAC was not placed today because it would have to be removed prior to discharge to the ECF. Antibiotic ointment was applied to the skin graft followed by Adaptic and dry gauze followed by an FLOYD wrap. Neurological: Cranial nerves II-XII grossly intact Psych/Mental Status: Normal Affect, Appropriate Microbiology Past 72 Hours 11/29/19 11:10 Tissue - Knee Gram Stain - Final 11/29/19 11:10 Tissue - Knee Wound Culture - Final No growth aerobically. 11/29/19 11:10 Tissue - Knee Anaerobic Culture - Final No growth in 5 days. 11/29/19 11:10 Tissue - Knee Gram Stain - Final 11/29/19 11:10 Tissue - Knee Wound Culture - Final No growth aerobically. 11/29/19 11:10 Tissue - Knee Anaerobic Culture - Final No growth in 5 days. 11/29/19 11:10 Tissue - Knee Gram Stain - Final 11/29/19 11:10 Tissue - Knee Wound Culture - Final No growth aerobically. 11/29/19 11:10 Tissue - Knee Anaerobic Culture - Final No growth in 5 days. Current Medications Acetaminophen (Tylenol) 1,000 mg PO Q8 [facility] Last Admin: 12/04/19 13:34 Dose: 1,000 mg Documented by: Ascorbic Acid (Vitamin C) 500 mg PO LUNCH [facility] Last Admin: 12/04/19 11:45 Dose: 500 mg Documented by: Cholecalciferol (Vitamin D (25mcg)) 5,000 unit PO DAILY@1200 [facility] Last Admin: 12/04/19 11:45 Dose: 5,000 unit Documented by: Diazepam (Valium) 5 mg PO 4X/DAY PRN PRN PRN Reason: SPASMS Last Admin: 12/02/19 08:45 Dose: 5 mg Documented by: Docusate Sodium (Colace) 100 mg PO BID [facility] Last Admin: 12/04/19 08:46 Dose: Not Given Documented by: Doxycycline Monohydrate (Doxycycline) 100 mg PO BID [facility] Last Admin: 12/04/19 08:46 Dose: 100 mg Documented by: Enoxaparin Sodium (Lovenox) 40 mg SC DAILY@0600 [facility] Last Admin: 12/04/19 06:02 Dose: 40 mg Documented by: Enteral Nutritional Formula (Ensure Surgery) 237 ml PO 0600,1300,2000 [facility] Last Admin: 12/04/19 13:33 Dose: 237 ml Documented by: Famotidine (Pepcid) 40 mg PO QHS [facility] Last Admin: 12/03/19 21:19 Dose: 40 mg Documented by: Ferrous Sulfate (Ferrous Sulfate) 325 mg PO DAILY@1200 [facility] Last Admin: 12/04/19 11:45 Dose: 325 mg Documented by: Gabapentin (Neurontin) 800 mg PO BID@0600,1200 [facility] Last Admin: 12/04/19 11:45 Dose: 800 mg Documented by: Gabapentin (Neurontin) 1,200 mg PO QHS [facility] Last Admin: 12/03/19 21:20 Dose: 1,200 mg Documented by: Insulin Human Lispro (Humalog Kwikpen (Bkc)) 1 - 6 unit SC Q4H PRN PRN; Protocol PRN Reason: BG>/= 180, SEE PROTOCOL Levothyroxine Sodium (Synthroid) 175 mcg PO DAILY@0600 [facility] Last Admin: 12/04/19 06:06 Dose: 175 mcg Documented by: Lisinopril (Zestril) 10 mg PO LUNCH [facility] Last Admin: 12/04/19 11:45 Dose: 10 mg Documented by: Montelukast Sodium (Singulair) 10 mg PO QHS [facility] Last Admin: 12/03/19 21:20 Dose: 10 mg Documented by: Morphine Sulfate () 2 - 4 mg IV Q2H PRN PRN PRN Reason: Pain Score 6-10/10 Morphine Sulfate () 2 - 4 mg IV Q2H PRN PRN PRN Reason: Pain Score 6-10/10 Last Admin: 11/30/19 12:43 Dose: 4 mg Documented by: [id number] Ethyl Esters (Lovaza) 2 gm PO LUNCH [facility] Last Admin: 12/04/19 11:45 Dose: 2 gm Documented by: Ondansetron HCl (Zofran) 4 mg IV Q8H PRN PRN PRN Reason: NAUSEA Oxycodone HCl (Oxyir) 5 - 10 mg PO Q4H PRN PRN PRN Reason: Pain Score 4-10/10 Last Admin: 12/02/19 08:45 Dose: 10 mg Documented by: Pantoprazole Sodium (Protonix) 20 mg PO DAILY [facility] Last Admin: 12/04/19 08:47 Dose: 20 mg Documented by: Pramipexole Dihydrochloride (Mirapex) 0.5 mg PO DAILY@0600 [facility] Last Admin: 12/04/19 06:06 Dose: 0.5 mg Documented by: Pramipexole Dihydrochloride (Mirapex) 1 mg PO LUNCH [facility] Last Admin: 12/04/19 11:45 Dose: 1 mg Documented by: Pramipexole Dihydrochloride (Mirapex) 1.5 mg PO QHS [facility] Last Admin: 12/03/19 21:20 Dose: 1.5 mg Documented by: Promethazine HCl (Phenergan) 12.5 mg IM Q6H PRN PRN; Protocol PRN Reason: NAUSEA/VOMITING Senna/Docusate Sodium (Senokot-S, Aileen-Colace) 2 tablet PO BID [facility] Last Admin: 12/04/19 08:46 Dose: Not Given Documented by: Sodium Chloride () 10 - 40 ml IV UD PRN PRN Reason: SALINE FLUSH Last Admin: 12/03/19 21:20 Dose: 10 ml Documented by: Venlafaxine HCl (Effexor Xr) 225 mg PO DAILY [facility] Last Admin: 12/04/19 08:46 Dose: 225 mg Documented by: Voriconazole (Vfend) 200 mg PO BID [facility] Last Admin: 12/04/19 08:47 Dose: 200 mg Documented by: Medical Necessity - Tobacco Use Smoking Status: Former smoker Assessment/Plan All Active Problems 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 Nonhealing ulcer right inferior knee by tibial tubercle. 2. History of revision replacement right knee. 3. History of right TKA infection. 4. Former smoker. 5. Sural nerve injury right posterior leg. 6. s/p irrigation debridement with polyethylene exchange right total knee. Excision sinus tract right knee. Preliminary closure, final closure per plastics 7. s/p reconstruction right inferior knee wound with right medial gastrocnemius muscular rotation flap and STSG reconstruction from right lateral abdominal wall (45 cm2) and 13 cm right superior knee wound complex secondary wound closure and epineural repair sural nerve injury right posterior leg. Patient feels good with minimal pain complaints. Has less burning nerve pain. Expected with the sural nerve repair. She is already on Neurontin. VAC removed from the skin graft and muscle flap. The muscle flap is pink and viable. Skin graft is adherent with small amount of vascular ingrowth noted. Incisions are dry and intact. Operative cultures are negative thus far. Continue Doxycycline and Voriconazole that she was on preoperatively for usp suppression. Hgb stable at 12.7. Drainage was 83 ml yesterday. Operative blood loss was 350 ml. Prealbumin was 24.7. Encourage nutritional supplementation with protein to help the healing process. Maintain knee brace for up to 4 weeks. Continue non weight bearing. Continue Lovenox while hospitalized. Will be discharged on Aspirin for DVT prophylaxis. Patient has decided to go to an ECF for a short stay after discharge until she is comfortable being at home alone. ECF has been approved. Awaiting precert. After [facility]
[2019-12-04 20:52] VITALS: BP 124/62; PULSE 78; RESP 16; TEMP 36.8; O2SAT 97
[2019-12-04] MEDS: Pramipexole Di-HCl 0.5 MG Tablet 1.5 MG PO (21:15)
[2019-12-04] MEDS: Gabapentin 600 MG Tablet 1200 MG PO (21:15)
[2019-12-04] MEDS: Montelukast 10 MG Tablet PO (21:15)
[2019-12-04] MEDS: Famotidine 20 MG Tablet 40 MG PO (21:15)
[2019-12-04] MEDS: diazePAM 5 MG Tablet PO (21:21)
[2019-12-05 02:52] VITALS: BP 126/60; PULSE 64; RESP 16; TEMP 36.7; O2SAT 96
[2019-12-05] MEDS: Pramipexole Di-HCl 0.5 MG Tablet PO (06:29)
[2019-12-05] MEDS: Gabapentin 800 MG Tablet PO ×2 (06:29→11:19)
[2019-12-05] MEDS: Acetaminophen 500 MG Tablet 1000 MG PO ×2 (06:29→14:14)
[2019-12-05] MEDS: Levothyroxine 175 MCG Tablet PO (06:29)
[2019-12-05] MEDS: Enoxaparin 40 MG/0.4 ML Syringe SC (06:30)
[2019-12-05] MEDS: 0.9% Saline Lock 10 ML Syringe IV (06:31)
--- NOTE | 2019-12-05 07:08 | PN.ORTHO_ITS ---
Subjective: The patient was sitting in bedside chair upon examination. Patient denies any chest pain, shortness of breath, dizziness, lightheadedness, nausea or vomiting, or calf pain. Pain is controlled on medications. No adverse overnight events. We are still waiting on pre-CERT from the insurance. Overall patient is doing very well and the only reason she is still continued to be in the hospital is waiting on the insurance. They did remove the wound VAC yesterday in anticipation of discharge. Patient states she does have some burning sensation around the tube from the drain. Objective: Vital signs stable and afebrile. Patient is able to plantarflex and dorsiflex actively. Sensation is intact to light touch to saphenous, sural, superficial and deep peroneal, and tibial distribution. Dressing is without any breakthrough drainage Knee immobilizer fitting well with drains still present from Dr. Iveth Britton bilaterally, negative signs and symptoms of DVT. - Physical Exam Vitals/I&O's: Vital Signs Temp Pulse Resp BP Pulse Ox 98.0 F 64 16 126/60 H 96 12/05/19 02:52 12/05/19 02:52 12/05/19 02:52 12/05/19 02:52 12/05/19 02:52 Oxygen Flow Rate (L/min) 2 Oxygen Delivery Method Room Air Weight: 119.9 kg Body Mass Index (BMI) 45.3 Finger Stick Blood Glucose 193 Intake and Output for Last 24 Hours 12/03/19 12/04/19 12/05/19 23:59 23:59 23:59 Intake Total 2400 / 2750 1950 / 2550 1100 / 1100 Output Total 883 / 1556 731 / 756 25 / Balance 1517 / 1194 1219 / 1794 1075 / 1075 General: Alert, Oriented x3, Cooperative, No apparent distress Microbiology Past 72 Hours 11/29/19 11:10 Tissue - Knee Gram Stain - Final 11/29/19 11:10 Tissue - Knee Wound Culture - Final No growth aerobically. 11/29/19 11:10 Tissue - Knee Anaerobic Culture - Final No growth in 5 days. 11/29/19 11:10 Tissue - Knee Gram Stain - Final 11/29/19 11:10 Tissue - Knee Wound Culture - Final No growth aerobically. 11/29/19 11:10 Tissue - Knee Anaerobic Culture - Final No growth in 5 days. 11/29/19 11:10 Tissue - Knee Gram Stain - Final 11/29/19 11:10 Tissue - Knee Wound Culture - Final No growth aerobically. 11/29/19 11:10 Tissue - Knee Anaerobic Culture - Final No growth in 5 days. Current Medications Acetaminophen (Tylenol) 1,000 mg PO Q8 [facility] Last Admin: 12/05/19 06:29 Dose: 1,000 mg Documented by: Ascorbic Acid (Vitamin C) 500 mg PO LUNCH [facility] Last Admin: 12/04/19 11:45 Dose: 500 mg Documented by: Cholecalciferol (Vitamin D (25mcg)) 5,000 unit PO DAILY@1200 [facility] Last Admin: 12/04/19 11:45 Dose: 5,000 unit Documented by: Diazepam (Valium) 5 mg PO 4X/DAY PRN PRN PRN Reason: SPASMS Last Admin: 12/04/19 21:21 Dose: 5 mg Documented by: Docusate Sodium (Colace) 100 mg PO BID [facility] Last Admin: 12/04/19 21:21 Dose: Not Given Documented by: Doxycycline Monohydrate (Doxycycline) 100 mg PO BID [facility] Last Admin: 12/04/19 21:15 Dose: 100 mg Documented by: Enoxaparin Sodium (Lovenox) 40 mg SC DAILY@0600 [facility] Last Admin: 12/05/19 06:30 Dose: 40 mg Documented by: Enteral Nutritional Formula (Ensure Surgery) 237 ml PO 0600,1300,2000 [facility] Last Admin: 12/05/19 06:30 Dose: Not Given Documented by: Famotidine (Pepcid) 40 mg PO QHS [facility] Last Admin: 12/04/19 21:15 Dose: 40 mg Documented by: Ferrous Sulfate (Ferrous Sulfate) 325 mg PO DAILY@1200 [facility] Last Admin: 12/04/19 11:45 Dose: 325 mg Documented by: Gabapentin (Neurontin) 800 mg PO BID@0600,1200 [facility] Last Admin: 12/05/19 06:29 Dose: 800 mg Documented by: Gabapentin (Neurontin) 1,200 mg PO QHS [facility] Last Admin: 12/04/19 21:15 Dose: 1,200 mg Documented by: Insulin Human Lispro (Humalog Kwikpen (Bkc)) 1 - 6 unit SC Q4H PRN PRN; Protocol PRN Reason: BG>/= 180, SEE PROTOCOL Levothyroxine Sodium (Synthroid) 175 mcg PO DAILY@0600 [facility] Last Admin: 12/05/19 06:29 Dose: 175 mcg Documented by: Lisinopril (Zestril) 10 mg PO LUNCH [facility] Last Admin: 12/04/19 11:45 Dose: 10 mg Documented by: Montelukast Sodium (Singulair) 10 mg PO QHS [facility] Last Admin: 12/04/19 21:15 Dose: 10 mg Documented by: Morphine Sulfate () 2 - 4 mg IV Q2H PRN PRN PRN Reason: Pain Score 6-10/10 Morphine Sulfate () 2 - 4 mg IV Q2H PRN PRN PRN Reason: Pain Score 6-10/10 Last Admin: 11/30/19 12:43 Dose: 4 mg Documented by: [id number] Ethyl Esters (Lovaza) 2 gm PO LUNCH [facility] Last Admin: 12/04/19 11:45 Dose: 2 gm Documented by: Ondansetron HCl (Zofran) 4 mg IV Q8H PRN PRN PRN Reason: NAUSEA Oxycodone HCl (Oxyir) 5 - 10 mg PO Q4H PRN PRN PRN Reason: Pain Score 4-10/10 Last Admin: 12/02/19 08:45 Dose: 10 mg Documented by: Pantoprazole Sodium (Protonix) 20 mg PO DAILY [facility] Last Admin: 12/04/19 08:47 Dose: 20 mg Documented by: Pramipexole Dihydrochloride (Mirapex) 0.5 mg PO DAILY@0600 [facility] Last Admin: 12/05/19 06:29 Dose: 0.5 mg Documented by: Pramipexole Dihydrochloride (Mirapex) 1 mg PO LUNCH [facility] Last Admin: 12/04/19 11:45 Dose: 1 mg Documented by: Pramipexole Dihydrochloride (Mirapex) 1.5 mg PO QHS [facility] Last Admin: 12/04/19 21:15 Dose: 1.5 mg Documented by: Promethazine HCl (Phenergan) 12.5 mg IM Q6H PRN PRN; Protocol PRN Reason: NAUSEA/VOMITING Senna/Docusate Sodium (Senokot-S, Aileen-Colace) 2 tablet PO BID [facility] Last Admin: 12/04/19 21:21 Dose: Not Given Documented by: Sodium Chloride () 10 - 40 ml IV UD PRN PRN Reason: SALINE FLUSH Last Admin: 12/05/19 06:31 Dose: 10 ml Documented by: Venlafaxine HCl (Effexor Xr) 225 mg PO DAILY [facility] Last Admin: 12/04/19 08:46 Dose: 225 mg Documented by: Voriconazole (Vfend) 200 mg PO BID [facility] Last Admin: 12/04/19 21:14 Dose: 200 mg Documented by: Medical Necessity - Tobacco Use Smoking Status: Former smoker Assessment/Plan All Active Problems 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 S/P irrigation debridement with polyethylene exchange right total knee with excision of sinus tract. Plastic surgery also performed flap repair POD #6 2. Continue Pain Medications: Tylenol and OxyIR 3. DVT Prophylaxis: Currently on Lovenox while in hospital. Plan will be to transition to aspirin once discharge for 4 weeks for DVT prophylaxis. 4. PT/OT: Continue with knee immobilizer right knee. Currently she will be nonweightbearing and motion restrictions per plastic surgery and Dr. Lazaro. No range of motion for 1 month. Range of motion and weightbearing status will be directed by Dr. Lazaro secondary to his closure. 5. Encouraged Incentive Spirometry 6. Continue postoperative medical management per medicine 7. Continue with current drains per Dr. Lazaro 8. Infectious disease consultation: Appreciate input on management of antibiotics. 5-day cultures findings are no growth and organisms seen. Patient is currently on Voriconazole and doxycycline 9. Disposition: Currently waiting on pre-CERT for patient to go to the [facility]. Patient is medically stable and the only reason for continued stay in the hospital is waiting on pre-CERT. Patient's range of motion and weightbearing restrictions are going to be directed by Dr. Lazaro secondary to his closure. Patient's additional night stay are secondary to plastics with Dr. Lazaro to monitor the wound. From an orthopedic standpoint patient is stable. We are just waiting on insurance for discharge. Anticipate discharge today as long as pre-CERT has been obtained. Refer to Dr. Lazaro with regards to wound VAC recommendations, range of motion restrictions, drain removal, and weightbearing status. I have reviewed the [employer] (OARRS) report for this patient for refill pattern and other prescriber involvement as part of the appropriate surveillance for the provision of acute and chronic controlled medications. The report was requested and reviewed on the date of this entry and was considered in the prescribing process.
[2019-12-05 08:52] VITALS: BP 110/98; PULSE 79; RESP 18; TEMP 36.7; O2SAT 98
[2019-12-05] MEDS: Doxycycline 100 MG CAPSULE PO (09:02)
[2019-12-05] MEDS: Pantoprazole Sodium 20 MG Tablet PO (09:02)
[2019-12-05] MEDS: Voriconazole 200 MG Tablet PO (09:02)
[2019-12-05] MEDS: Venlafaxine XR 75 MG Capsule 225 MG PO (09:02)
--- NOTE | 2019-12-05 10:15 | PCM.PN.ID ---
Subjective: Feeling ok, no fever, no n/v/d, no vision changes. - Physical Exam Vitals/I&O's: Vital Signs Temp Pulse Resp BP Pulse Ox 98.1 F 79 18 110/98 H 98 12/05/19 08:52 12/05/19 08:52 12/05/19 08:52 12/05/19 08:52 12/05/19 08:52 Oxygen Flow Rate (L/min) 2 Oxygen Delivery Method Room Air Weight: 119.9 kg Body Mass Index (BMI) 45.3 Finger Stick Blood Glucose 193 Intake and Output for Last 24 Hours 12/03/19 12/04/19 12/05/19 23:59 23:59 23:59 Intake Total 2400 / 2750 1950 / 2550 1100 / 1100 Output Total 883 / 1556 731 / 756 Balance 1517 / 1194 1219 / 1794 1075 / 1075 General: Alert, Cooperative, No apparent distress Lungs: Clear to auscultation, Normal air movement Cardiovascular: Regular rate, Regular Rhythm Abdomen: Soft, Non Tender, Non-Distended Skin: Ulcer/ Wound - R knee wrapped Microbiology Past 72 Hours 11/29/19 11:10 Tissue - Knee Gram Stain - Final 11/29/19 11:10 Tissue - Knee Wound Culture - Final No growth aerobically. 11/29/19 11:10 Tissue - Knee Anaerobic Culture - Final No growth in 5 days. 11/29/19 11:10 Tissue - Knee Gram Stain - Final 11/29/19 11:10 Tissue - Knee Wound Culture - Final No growth aerobically. 11/29/19 11:10 Tissue - Knee Anaerobic Culture - Final No growth in 5 days. 11/29/19 11:10 Tissue - Knee Gram Stain - Final 11/29/19 11:10 Tissue - Knee Wound Culture - Final No growth aerobically. 11/29/19 11:10 Tissue - Knee Anaerobic Culture - Final No growth in 5 days. Current Medications Acetaminophen (Tylenol) 1,000 mg PO Q8 [facility] Last Admin: 12/05/19 06:29 Dose: 1,000 mg Documented by: Ascorbic Acid (Vitamin C) 500 mg PO LUNCH [facility] Last Admin: 12/04/19 11:45 Dose: 500 mg Documented by: Cholecalciferol (Vitamin D (25mcg)) 5,000 unit PO DAILY@1200 [facility] Last Admin: 12/04/19 11:45 Dose: 5,000 unit Documented by: Diazepam (Valium) 5 mg PO 4X/DAY PRN PRN PRN Reason: SPASMS Last Admin: 12/04/19 21:21 Dose: 5 mg Documented by: Docusate Sodium (Colace) 100 mg PO BID [facility] Last Admin: 12/05/19 09:00 Dose: Not Given Documented by: Doxycycline Monohydrate (Doxycycline) 100 mg PO BID [facility] Last Admin: 12/05/19 09:02 Dose: 100 mg Documented by: Enoxaparin Sodium (Lovenox) 40 mg SC DAILY@0600 [facility] Last Admin: 12/05/19 06:30 Dose: 40 mg Documented by: Enteral Nutritional Formula (Ensure Surgery) 237 ml PO 0600,1300,2000 [facility] Last Admin: 12/05/19 06:30 Dose: Not Given Documented by: Famotidine (Pepcid) 40 mg PO QHS [facility] Last Admin: 12/04/19 21:15 Dose: 40 mg Documented by: Ferrous Sulfate (Ferrous Sulfate) 325 mg PO DAILY@1200 [facility] Last Admin: 12/04/19 11:45 Dose: 325 mg Documented by: Gabapentin (Neurontin) 800 mg PO BID@0600,1200 [facility] Last Admin: 12/05/19 06:29 Dose: 800 mg Documented by: Gabapentin (Neurontin) 1,200 mg PO QHS [facility] Last Admin: 12/04/19 21:15 Dose: 1,200 mg Documented by: Insulin Human Lispro (Humalog Kwikpen (Bkc)) 1 - 6 unit SC Q4H PRN PRN; Protocol PRN Reason: BG>/= 180, SEE PROTOCOL Levothyroxine Sodium (Synthroid) 175 mcg PO DAILY@0600 [facility] Last Admin: 12/05/19 06:29 Dose: 175 mcg Documented by: Lisinopril (Zestril) 10 mg PO LUNCH [facility] Last Admin: 12/04/19 11:45 Dose: 10 mg Documented by: Montelukast Sodium (Singulair) 10 mg PO QHS [facility] Last Admin: 12/04/19 21:15 Dose: 10 mg Documented by: Morphine Sulfate () 2 - 4 mg IV Q2H PRN PRN PRN Reason: Pain Score 6-10/10 Morphine Sulfate () 2 - 4 mg IV Q2H PRN PRN PRN Reason: Pain Score 6-10/10 Last Admin: 11/30/19 12:43 Dose: 4 mg Documented by: [id number] Ethyl Esters (Lovaza) 2 gm PO LUNCH [facility] Last Admin: 12/04/19 11:45 Dose: 2 gm Documented by: Ondansetron HCl (Zofran) 4 mg IV Q8H PRN PRN PRN Reason: NAUSEA Oxycodone HCl (Oxyir) 5 - 10 mg PO Q4H PRN PRN PRN Reason: Pain Score 4-10/10 Last Admin: 12/02/19 08:45 Dose: 10 mg Documented by: Pantoprazole Sodium (Protonix) 20 mg PO DAILY [facility] Last Admin: 12/05/19 09:02 Dose: 20 mg Documented by: Pramipexole Dihydrochloride (Mirapex) 0.5 mg PO DAILY@0600 [facility] Last Admin: 12/05/19 06:29 Dose: 0.5 mg Documented by: Pramipexole Dihydrochloride (Mirapex) 1 mg PO LUNCH [facility] Last Admin: 12/04/19 11:45 Dose: 1 mg Documented by: Pramipexole Dihydrochloride (Mirapex) 1.5 mg PO QHS [facility] Last Admin: 12/04/19 21:15 Dose: 1.5 mg Documented by: Promethazine HCl (Phenergan) 12.5 mg IM Q6H PRN PRN; Protocol PRN Reason: NAUSEA/VOMITING Senna/Docusate Sodium (Senokot-S, Aileen-Colace) 2 tablet PO BID [facility] Last Admin: 12/05/19 09:01 Dose: Not Given Documented by: Sodium Chloride () 10 - 40 ml IV UD PRN PRN Reason: SALINE FLUSH Last Admin: 12/05/19 06:31 Dose: 10 ml Documented by: Venlafaxine HCl (Effexor Xr) 225 mg PO DAILY [facility] Last Admin: 12/05/19 09:02 Dose: 225 mg Documented by: Voriconazole (Vfend) 200 mg PO BID [facility] Last Admin: 12/05/19 09:02 Dose: 200 mg Documented by: Medical Necessity - Tobacco Use Smoking Status: Former smoker Route of nutrition/ use of supplements: [] Nutritional Intake: [] IV Site: [] Clarke Catheter: [] - Assessment/Plan Antibiotics: [] Assessment/Plan: [] R knee PJI - now s/p poly exchange by Dr. Barton and flap by Dr. Lazaro on 11/29/19. Surg cx neg. She is to cont on doxy and vori. ID followup with me in 1 month. Will follow
[2019-12-05] MEDS: Omega-3 Acid Ethyl Esters 1 GM Capsule 2 GM PO (11:18)
[2019-12-05] MEDS: Ferrous Sulfate 325 MG Tablet PO (11:19)
[2019-12-05] MEDS: Pramipexole Di-HCl 1 MG Tablet PO (11:19)
[2019-12-05] MEDS: Lisinopril 10 MG Tablet PO (11:19)
[2019-12-05] MEDS: Ascorbic Acid 500 MG Tablet PO (11:19)
--- NOTE | 2019-12-05 12:10 | PN.SURG_ITS ---
Subjective: Post op day #56 Patient sitting up in chair with leg elevated. She denies any complaints. - Physical Exam Vitals/I&O's: Vital Signs Temp Pulse Resp BP Pulse Ox 98.1 F 79 18 110/98 H 98 12/05/19 08:52 12/05/19 08:52 12/05/19 08:52 12/05/19 08:52 12/05/19 08:52 Oxygen Flow Rate (L/min) 2 Oxygen Delivery Method Room Air Weight: 264 lb 5.348 oz Body Mass Index (BMI) 45.3 Finger Stick Blood Glucose 193 Intake and Output for Last 24 Hours 12/03/19 12/04/19 12/05/19 23:59 23:59 23:59 Intake Total 2400 / 2750 1950 / 2550 1460 / 1460 Output Total 883 / 1556 731 / 756 25 / 25 Balance 1517 / 1194 1219 / 1794 1435 / 1435 General: Alert, Oriented x3, Cooperative HEENT: Atraumatic Oral: Moist Mucosa Lungs: Normal air movement Cardiovascular: Regular rate Abdomen: Soft Extremities: Capillary Refill Less than 3 Seconds, Edema, Peripheral Pulses Normal Skin: Ulcer/ Wound - Right inferior knee wound with muscle flap and skin graft. Dressing intact. Viewed photos that showed muscle flap is pink and viable. Skin graft shows good adherence. Small amount of vascular ingrowth seen. VAC is not in place due to patient is waiting to go to ECF and then the VAC dressing would need to discontinued and then reapplied at [facility]. Antibiotic ointment was applied to the skin graft followed by Adaptic and dry gauze followed by an FLOYD wrap. Musculoskeletal: No Tenderness to Palpation of Joints or Extremities Neurological: Cranial nerves II-XII grossly intact Psych/Mental Status: Normal Affect, Appropriate Microbiology Past 72 Hours 11/29/19 11:10 Tissue - Knee Gram Stain - Final 11/29/19 11:10 Tissue - Knee Wound Culture - Final No growth aerobically. 11/29/19 11:10 Tissue - Knee Anaerobic Culture - Final No growth in 5 days. 11/29/19 11:10 Tissue - Knee Gram Stain - Final 11/29/19 11:10 Tissue - Knee Wound Culture - Final No growth aerobically. 11/29/19 11:10 Tissue - Knee Anaerobic Culture - Final No growth in 5 days. 11/29/19 11:10 Tissue - Knee Gram Stain - Final 11/29/19 11:10 Tissue - Knee Wound Culture - Final No growth aerobically. 11/29/19 11:10 Tissue - Knee Anaerobic Culture - Final No growth in 5 days. Current Medications Acetaminophen (Tylenol) 1,000 mg PO Q8 [facility] Last Admin: 12/05/19 06:29 Dose: 1,000 mg Documented by: Ascorbic Acid (Vitamin C) 500 mg PO LUNCH [facility] Last Admin: 12/05/19 11:19 Dose: 500 mg Documented by: Cholecalciferol (Vitamin D (25mcg)) 5,000 unit PO DAILY@1200 [facility] Last Admin: 12/05/19 11:19 Dose: 5,000 unit Documented by: Diazepam (Valium) 5 mg PO 4X/DAY PRN PRN PRN Reason: SPASMS Last Admin: 12/04/19 21:21 Dose: 5 mg Documented by: Docusate Sodium (Colace) 100 mg PO BID [facility] Last Admin: 12/05/19 09:00 Dose: Not Given Documented by: Doxycycline Monohydrate (Doxycycline) 100 mg PO BID [facility] Last Admin: 12/05/19 09:02 Dose: 100 mg Documented by: Enoxaparin Sodium (Lovenox) 40 mg SC DAILY@0600 [facility] Last Admin: 12/05/19 06:30 Dose: 40 mg Documented by: Enteral Nutritional Formula (Ensure Surgery) 237 ml PO 0600,1300,2000 [facility] Last Admin: 12/05/19 11:19 Dose: Not Given Documented by: Famotidine (Pepcid) 40 mg PO QHS [facility] Last Admin: 12/04/19 21:15 Dose: 40 mg Documented by: Ferrous Sulfate (Ferrous Sulfate) 325 mg PO DAILY@1200 [facility] Last Admin: 12/05/19 11:19 Dose: 325 mg Documented by: Gabapentin (Neurontin) 800 mg PO BID@0600,1200 [facility] Last Admin: 12/05/19 11:19 Dose: 800 mg Documented by: Gabapentin (Neurontin) 1,200 mg PO QHS [facility] Last Admin: 12/04/19 21:15 Dose: 1,200 mg Documented by: Insulin Human Lispro (Humalog Kwikpen (Bkc)) 1 - 6 unit SC Q4H PRN PRN; Protocol PRN Reason: BG>/= 180, SEE PROTOCOL Levothyroxine Sodium (Synthroid) 175 mcg PO DAILY@0600 [facility] Last Admin: 12/05/19 06:29 Dose: 175 mcg Documented by: Lisinopril (Zestril) 10 mg PO LUNCH [facility] Last Admin: 12/05/19 11:19 Dose: 10 mg Documented by: Montelukast Sodium (Singulair) 10 mg PO QHS [facility] Last Admin: 12/04/19 21:15 Dose: 10 mg Documented by: Morphine Sulfate () 2 - 4 mg IV Q2H PRN PRN PRN Reason: Pain Score 6-10/10 Morphine Sulfate () 2 - 4 mg IV Q2H PRN PRN PRN Reason: Pain Score 6-10/10 Last Admin: 11/30/19 12:43 Dose: 4 mg Documented by: [id number]-2-[id number] Ethyl Esters (Lovaza) 2 gm PO LUNCH [facility] Last Admin: 12/05/19 11:18 Dose: 2 gm Documented by: Ondansetron HCl (Zofran) 4 mg IV Q8H PRN PRN PRN Reason: NAUSEA Oxycodone HCl (Oxyir) 5 - 10 mg PO Q4H PRN PRN PRN Reason: Pain Score 4-10/10 Last Admin: 12/02/19 08:45 Dose: 10 mg Documented by: Pantoprazole Sodium (Protonix) 20 mg PO DAILY [facility] Last Admin: 12/05/19 09:02 Dose: 20 mg Documented by: Pramipexole Dihydrochloride (Mirapex) 0.5 mg PO DAILY@0600 [facility] Last Admin: 12/05/19 06:29 Dose: 0.5 mg Documented by: Pramipexole Dihydrochloride (Mirapex) 1 mg PO LUNCH [facility] Last Admin: 12/05/19 11:19 Dose: 1 mg Documented by: Pramipexole Dihydrochloride (Mirapex) 1.5 mg PO QHS [facility] Last Admin: 12/04/19 21:15 Dose: 1.5 mg Documented by: Promethazine HCl (Phenergan) 12.5 mg IM Q6H PRN PRN; Protocol PRN Reason: NAUSEA/VOMITING Senna/Docusate Sodium (Senokot-S, Aileen-Colace) 2 tablet PO BID [facility] Last Admin: 12/05/19 09:01 Dose: Not Given Documented by: Sodium Chloride () 10 - 40 ml IV UD PRN PRN Reason: SALINE FLUSH Last Admin: 12/05/19 06:31 Dose: 10 ml Documented by: Venlafaxine HCl (Effexor Xr) 225 mg PO DAILY [facility] Last Admin: 12/05/19 09:02 Dose: 225 mg Documented by: Voriconazole (Vfend) 200 mg PO BID [facility] Last Admin: 12/05/19 09:02 Dose: 200 mg Documented by: Medical Necessity - Tobacco Use Smoking Status: Former smoker Assessment/Plan All Active Problems 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 Nonhealing ulcer right inferior knee by tibial tubercle. 2. History of revision replacement right knee. 3. History of right TKA infection. 4. Former smoker. 5. Sural nerve injury right posterior leg. 6. s/p irrigation debridement with polyethylene exchange right total knee. Excision sinus tract right knee. Preliminary closure, final closure per plastics 7. s/p reconstruction right inferior knee wound with right medial gastrocnemius muscular rotation flap and STSG reconstruction from right lateral abdominal wall (45 cm2) and 13 cm right superior knee wound complex secondary wound closure and epineural repair sural nerve injury right posterior leg. Patient feels good with minimal pain complaints. Has less burning nerve pain. Expected with the sural nerve repair. She is already on Neurontin. VAC removed from the skin graft and muscle flap, will not reapply the VAC at this time due to patient waiting for precert so can transfer to ECF. The muscle flap is pink and viable. Skin graft is adherent with small amount of vascular ingrowth noted. Incisions are dry and intact. Operative cultures are negative thus far. Continue Doxycycline and Voriconazole that she was on preoperatively for snf suppression. Hgb stable at 12.7. Drainage was 23 ml yesterday. Operative blood loss was 350 ml. Prealbumin was 24.7. Encourage nutritional supplementation with protein to help the healing process. Maintain knee brace for up to 4 weeks. Continue non weight bearing. Continue Lovenox while hospitalized. Will be discharged on Aspirin for DVT prophylaxis. Patient has decided to go to an ECF for a short stay after discharge until she is comfortable being at home alone. ECF has been approved. Awaiting precert. After [facility]. [id number]: [id number] Global Visit
[2019-12-05 14:17] VITALS: BP 123/57; PULSE 83; RESP 18; TEMP 37; O2SAT 94
--- NOTE | 2019-12-05 14:31 | CASEMGMT ---
Addendum entered by Queenie Philippe 12/05/19 15:27: SW updated pt that pre-cert is still pending. Original Note: Social Work Note SW placed a call to Jackelyn at [facility] and pre-cert is still pending. Plan: [facility] pending pre-cert Queenie Philippe [employer], [employer]
--- NOTE | 2019-12-05 16:47 | CASEMGMT ---
Social Work Note SW received call from Jackelyn at [facility] stating pre-cert has been obtained and pt is able to discharge today. SW updated Francisco AYALA. Francisco AYALA states he told RN that if pre-cert is obtained to verbally put a discharge in. Francisco AYALA states paperwork that has been completed and in pt's chart is right paperwork for pt and has been completed. STU also placed a call to Dr. Lazaro and left message that pt will be discharged today. SW updated RN who will put in discharge order. SW faxed completed discharge paperwork to [facility] including transfer to extended care facility, signed medication list and any scripts. Original in SNF folder and copy on pt's chart. SW spoke with pt regarding transportation. SW explained that pt can be transported via wheelchair van but it will be private pay. Pt states that she will call her as they have their own wheelchair van and may be able to transport pt. [facility] was completed. Original in SNF folder and copy on pt's chart. COVID screening tool also faxed to Jackelyn at [facility]. Pt then updated this worker that she will need transportation arranged. SW [facility] and [facility] via [facility] van for 5:30pm. Transportation form completed and placed on SNF folder and copy on pt's chart. SW updated RN and pt on transportation time. STU placed a call to Jackelyn at [facility] and updated her on transportation time. Plan: [facility] skilled [facility] pt at 5:30pm Queenie GAMEZ, DIRECTOR SALES SUPPORT
--- NOTE | 2019-12-05 18:03 | NURSING ---
called report to Karoline at [facility] at this time.
--- NOTE | 2019-12-06 13:44 | DS.PCM_ITS ---
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) Nonhealing ulcer right inferior knee by tibial tubercle History of DVT (deep vein thrombosis) (Chronic) Septic arthritis of knee, right (Chronic) Hx of total knee replacement (Chronic) right Restless leg (Chronic) RENNY (obstructive sleep apnea) (Chronic) Hypothyroidism (Chronic) Diverticulosis of colon without diverticulitis (Chronic) Depression (Chronic) Postphlebitic syndrome with inflammation (Chronic) Lumbar disc disease (Chronic) History of Graves' disease (Chronic) Diabetes mellitus (Chronic) Renal insufficiency (Chronic) Presence of IVC filter (Chronic) Obesity (Chronic) Edema leg (Chronic) Leg swelling (Chronic) DVT of lower extremity (deep venous thrombosis) (Chronic) Hospital Course and Treatment Consultations 11/30/19 06:46 Consult: Onc/Wound/director of special services Routine Comment: Reason for Consult:: right leg Consult: Infectious Disease Operations: total knee replacement - Removal of total knee replacement, placement of nonbiodegradable antibiotic delivery system. Summary of Care Provided: Patient is a 59-year-old female who underwent a previous right total knee arthroplasty in September 2019 continued to have slow healing distal incision which eventually began to drain serous fluid. After failing conservative measures, the patient opted to proceed with a irrigation debridement with polyethylene exchange right total knee with excision sinus tract. Patient also underwent closure per Dr. Lazaro in which she underwent a reconstruction right inferior knee wound with right medial gastrocnemius muscular rotation flap and STSG reconstruction from right lateral abdominal wall and 13 cm right superior knee wound complex secondary wound closure with epineural repair sural nerve injury right posterior leg. The patient underwent the above-stated procedure on November 29, 2019. Patient did receive perioperative antibiotics. Intraoperatively was uneventful. For details please see dictated operative note. The patient was placed in thigh-high teds, bilateral SCDs, remained stable in recovery. Patient was admitted to the 3rd floor at [facility]. Patient was followed closely by plastics Dr. Lazaro and infectious disease. The patient's pain was managed with the use of IV and p.o. pain medications. Patient participated in physical therapy. Patient was placed in a knee immobilizer for the right knee and will be nonweightbearing with motion restrictions per plastic surgery. There is to be no range of motion for 1 month postoperatively and nonweightbearing until directed by Dr. Lazaro. Wound nurse was also consulted to place wound VAC in which patient will continue with wound VAC at the correction [facility]. This will be directed by Dr. Lazaro. Patient will continue with her current oral antibiotics doxycycline and for Vo riconazole. Patient will follow-up with infectious disease in 1 month. Patient also will continue with the drains in her right lower leg per Dr. Lazaro. Patient was discharged on postoperative day #6 to the [facility]. Patient was given medications stated below. Patient will follow up with [facility] per postop instructions for reassessment. Patient will also follow up with plastics for wound checks. Patient will continue postoperatively with aspirin 81 mg twice daily for DVT prophylaxis for 4 weeks postoperatively. Patient will continue with exercise strength Tylenol 500 mg 2 tablets 3 times daily for primary pain control with oxycodone 5 mg 1-2 tablets every 4 hours for breakthrough pain. - Physical Exam Vitals/I&O's: Vital Signs Temp Pulse Resp BP Pulse Ox 98.6 F 83 18 123/57 H 94 12/05/19 14:17 12/05/19 14:17 12/05/19 14:17 12/05/19 14:17 12/05/19 14:17 Oxygen Flow Rate (L/min) 2 Oxygen Delivery Method Room Air Weight: 119.9 kg Body Mass Index (BMI) 45.3 Finger Stick Blood Glucose 193 Intake and Output for Last 24 Hours 12/04/19 12/05/19 12/06/19 23:59 23:59 23:59 Intake Total 1950 / 2550 1460 / 1460 Output Total 731 / 756 45 / 45 Balance 1219 / 1794 1415 / 1415 Microbiology Past 72 Hours 11/29/19 11:10 Tissue - Knee Gram Stain - Final 11/29/19 11:10 Tissue - Knee Wound Culture - Final No growth aerobically. 11/29/19 11:10 Tissue - Knee Anaerobic Culture - Final No growth in 5 days. 11/29/19 11:10 Tissue - Knee Gram Stain - Final 11/29/19 11:10 Tissue - Knee Wound Culture - Final No growth aerobically. 11/29/19 11:10 Tissue - Knee Anaerobic Culture - Final No growth in 5 days. 11/29/19 11:10 Tissue - Knee Gram Stain - Final 11/29/19 11:10 Tissue - Knee Wound Culture - Final No growth aerobically. 11/29/19 11:10 Tissue - Knee Anaerobic Culture - Final No growth in 5 days. Discharge Diet: No Restrictions Ice area for (Minutes): 20 - Every 1-2 hours while awake Weight Bearing Status: No weight bearing - With knee immobilizer. Weightbearing and range of motion restrictions are directed by Dr. Lazaro Keep extremity elevated above heart level: Operative Extremity Home Medications: Medications to take at Discharge Levothyroxine [Synthroid] 175 mcg PO DAILY 09/01/13 Omeprazole [Prilosec] 20 mg PO DAILY 12/13/16 Cholecalciferol (Vitamin D3) [Vitamin D3] 5,000 unit PO DAILY@1200 01/25/17 [place]-3 Fatty Acids/Fish Oil [Fish Oil 1,000 mg Capsule] 2,000 mg PO LUNCH 03/21/18 Gabapentin 800 mg PO BID 08/01/18 Gabapentin [Neurontin] 1,200 mg PO QHS 08/01/18 Lisinopril [Zestril] 10 mg PO LUNCH 08/01/18 Pramipexole Di-HCl [Pramipexole Dihydrochloride] 1 mg PO LUNCH 08/01/18 Pramipexole Di-HCl [Pramipexole Dihydrochloride] 1.5 tab PO QHS 08/01/18 Venlafaxine HCl [Effexor Xr] 1 tab PO DAILY 08/01/18 Venlafaxine HCl [Venlafaxine HCl ER] 1 tab PO DAILY 08/01/18 Aspirin [Aspir-Low] 81 mg PO LUNCH 05/02/19 Famotidine [Pepcid] 40 mg PO QHS 05/02/19 Ferrous Sulfate 325 mg PO DAILY 08/30/19 Ascorbic Acid [Vitamin C] 500 mg PO LUNCH 11/28/19 Doxycycline 100 mg PO BID 11/28/19 Montelukast [Singulair] 10 mg PO QHS 11/28/19 Pramipexole Di-HCl [Mirapex] 0.5 mg PO DAILY 11/28/19 Voriconazole 200 mg PO BID 11/28/19 Acetaminophen [Tylenol] 1,000 mg PO Q8 tab 12/04/19 Aspirin E.C. [Ecotrin] 81 mg PO BIDCM 30 Days tab 12/04/19 Oxycodone [Oxyir] 5 - 10 mg PO Q4H PRN PRN 3 Days #36 tab 12/04/19 Senna/Docusate Sodium [Senokot-S] 2 tab PO BID tab 12/04/19 Following Prescriptions Were Given to Patient: Aspirin E.C. [Ecotrin] 81 mg PO BIDCM 30 Days tab Oxycodone [Oxyir] 5 - 10 mg PO Q4H PRN PRN 3 Days #36 tab PRN Reason: Pain Score 4-10/10 Prescription Printed Primary Care Physician: Gustavo Ceballos MD [Primary Care Provider] - Please Follow Up With: Hudson Lazaro MD When: December 19, 2019 Please Follow Up With: Major Barton MD When: Will need scheduled appointment in 2 weeks Additional Instructions: Wound VAC: Wound VAC directions are per Dr. Lazaro. Continue with wound VAC over the skin graft and muscle flap at 100 mmHg. change twice weekly. If that first VAC change if there is a lot of moisture on the skin graft will increase the suction to 125 mmHg. Continue with drains per Dr. Lazaro Range of motion, weightbearing status are also directed by Dr. Lazaro. Continue nonweightbearing and no range of motion for 1 month. Continue with the knee immobilizer. Medical Necessity - Tobacco Use Smoking Status: Former smoker Meaningful Use Info Meaningful Use Diagnoses (Choose all that apply): None applicable
== END 2019-12-05 18:11 | disposition skilled nursing facility (03) | DRG 940 ==
PROVIDERS: Anesthesiology; Internal Medicine; Student in an Organized Health Care Education/Training Program; Surgery; Admitting Provider Specialist; PCP Family Medicine; Referring Provider Specialist; Visit Provider Family Medicine
PROC: 0SPC0JZ Removal of Synthetic Substitute from Right Knee Joint, Open Approach (ICD-10-PCS; CPT 27301; principal; 2019-11-29 10:10)
PROC: 0HRKX74 Replacement of Right Lower Leg Skin with Autologous Tissue Substitute, Partial Thickness, External Approach (ICD-10-PCS; 2019-11-29 10:10)
DX: T84.53XD Infection and inflammatory reaction due to internal right knee prosthesis, subsequent encounter (principal); L97.812 Non-pressure chronic ulcer of other part of right lower leg with fat layer exposed; Z68.42 Body mass index [BMI] 45.0-49.9, adult; G97.81 Other intraoperative complications of nervous system; Z96.651 Presence of right artificial knee joint; E03.9 Hypothyroidism, unspecified; I10 Essential (primary) hypertension; E66.01 Morbid (severe) obesity due to excess calories; D50.9 Iron deficiency anemia, unspecified; F32.9 Major depressive disorder, single episode, unspecified; F41.9 Anxiety disorder, unspecified; K21.9 Gastro-esophageal reflux disease without esophagitis; M06.9 Rheumatoid arthritis, unspecified; D72.828 Other elevated white blood cell count; Z79.2 Long term (current) use of antibiotics; Z79.891 Long term (current) use of opiate analgesic; Z79.899 Other long term (current) drug therapy; Z87.891 Personal history of nicotine dependence; Z86.718 Personal history of other venous thrombosis and embolism; G47.33 Obstructive sleep apnea (adult) (pediatric); J44.9 Chronic obstructive pulmonary disease, unspecified; T14.8XXA Other injury of unspecified body region, initial encounter; Y83.8 Other surgical procedures as the cause of abnormal reaction of the patient, or of later complication, without mention of misadventure at the time of the procedure; Y92.234 Operating room of hospital as the place of occurrence of the external cause; W26.8XXA Contact with other sharp object(s), not elsewhere classified, initial encounter; Y93.89 Activity, other specified; Y99.8 Other external cause status
CPT/HCPCS: 36415; 73560; 80048; 80053; 82962; 84134; 84443; 85025; 85027; 85610; 86850; 86900; 86901; 87015; 87070; 87075; 87102; 87116; 87205; 87206; 87635; 87641; 93005; 94640; 97110; 97116; 97163; 97166; 97530; 97535; 99251; C1776; J7040; J7120; A4216; G0463; J2405; U0003

== ENCOUNTER 2020-01-01 09:00 | Outpatient (RCR) | payer BC, SELFPAY ==
[2019-12-05 00:48] VITALS: BP 140/72; PULSE 76; RESP 22; TEMP 36.6
[2019-12-18 08:11] VITALS: BP 110/66; PULSE 74; RESP 18; TEMP 37; BMI 45.3
--- NOTE | 2019-12-18 13:07 | PN.PCM_ITS ---
Type of Wound Date of Service: 12/18/19 Chief Complaint: Nonhealing ulcer right inferior knee s/p polyethylene exchange and gastrocnemius muslce flap reconstruction on 11/29/19. History of Wound: Surgery 11/29/19 - Irrigation debridement with polyethylene exchange right total knee and xcision sinus tract right knee by Dr Barton. 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 Lazaro. Wound care - VAC and floyd wrap and knee brace. Operative culture - negative. Currently on Doxycycline and Voriconazole. Prealbumin on 11/30/19 was 24.7. Encourage nutritional supplementation with protein to help the healing process. Today she denies fever. Her appetite is good. She is ambulating ok with the walker. She has burning nerve pain and tingling in the area of the sural nerve distribution. She is taking Neurontin. Progress of Wound: Healing muscle flap and skin graft after surgery 11/29/19. - Physical Exam Vital Signs Temp Pulse Resp BP 98.6 F 74 18 110/66 12/18/19 08:11 12/18/19 08:11 12/18/19 08:11 12/18/19 08:11 Wound Measurements and Assessment WC - Nurse 1 - General Ulcer Measurement Start: 12/18/19 08:05 Freq: Status: Active Protocol: Activity Type Activity Date Activity User E-Sign Co-Sign Detail Recorded Client Recorded Date Recorded By Document 12/18/19 08:11 DL [id number] 12/18/19 08:28 DL 12/18/19 08:11 Wound Center Nurse 1 [Ulcer Assessment] #2 Right Ant Lower Leg -Current Size (cm) - Length 9.6 -Current Size (cm) - Width 5.3 -Current Size (cm) - Depth 0.1 -Total Square Cm 50.88 -Photo Taken Yes -Exudate Amt Small -Exudate Type Serosanguineous -Wound Margin Distinct, Outline Attached -Granulation Amt Medium (34-66%) -Granulation Quality Moran -Necrosis Amt Medium (34-66%) -Necrotic Tissue Type Adherent Slough -Structure Exposed N/A -Texture (Aileen-wound Skin Appearance) Scarring -Moisture (Aileen-wound Skin Appearance No Abnormality ) -Color (Aileen-wound Skin Appearance) No Abnormality, Hemosiderin Staining -Temperature (Aileen-wound Skin No Abnormality Appearance) (Pt Warm) -Ulcer Cleansing Wound Cleanser -Foul Odor after Cleansing No -Anesthetic Used 4% Lidocaine Solution [Edema Assessment] -Right Calf (cm) 38 -Right Ankle (cm) 25 WC - Nurse 2 - General Ulcer CM Notes Start: 12/18/19 08:05 Freq: Status: Active Protocol: Activity Type Activity Date Activity User E-Sign Co-Sign Detail Recorded Client Recorded Date Recorded By Document 12/18/19 09:12 ALETA [id number] 12/18/19 09:15 ALETA 12/18/19 09:12 Wound Center Nurse 2 [Procedure/Treatment] 3-right knee graft site -Correct Patient No -Correct Side, Site, Position No -Correct Procedure No -Procedure Performed No -Post Debridement (cm) - Length 0.1 -Post Debridement (cm) - Width 0.1 -Post Debridement (cm) - Depth 0.1 -Total Square (Post) (cm) 0.01 -Area of Debridement (cm) - Length 0.1 -Area of Debridement (cm) - Width 0.1 -Total Square (Area) (cm) 0.01 -Tunneling No -Undermining/Tunneling No -Circular Undermining No -Wound/Ulcer Outcome Not Healed -Ulcer Cleansing Rinsed/ Irrigated with Saline -Foul Odor after Cleansing No -Bioengineered Tissue No -Bleeding Controlled with Pressure -Offloading No -Treatment Response Procedure Tolerated Well -Debridement - Subq, 1st 20sq cm No #2 Right Ant Lower Leg -Correct Patient No -Correct Side, Site, Position No -Correct Procedure No -Procedure Performed No -Post Debridement (cm) - Length 0 -Post Debridement (cm) - Width 0 -Post Debridement (cm) - Depth 0 -Total Square (Post) (cm) 0 -Area of Debridement (cm) - Length 0 -Area of Debridement (cm) - Width 0 -Total Square (Area) (cm) 0 -Tunneling No -Undermining/Tunneling No -Circular Undermining No -Wound/Ulcer Outcome Healed- Graft -Bioengineered Tissue No -Bleeding Controlled with Pressure -Offloading No -Treatment Response Procedure Tolerated Well -Debridement - Subq, 1st 20sq cm No [See Physician Procedure note for Specifics] Pain Scale: 0-10 Numeric [Pain] -Is Patient Pain Free? Yes - Nurse 3 - General Ulcer D/C NN Start: 12/18/19 08:05 Freq: Status: Active Protocol: Activity Type Activity Date Activity User E-Sign Co-Sign Detail Recorded Client Recorded Date Recorded By Document 12/18/19 09:33 [facility] [id number] 12/18/19 09:34 [facility] 12/18/19 09:33 Wound Care Nurse 3 [Wound Dressing] 3-right knee graft site -Ulcer Cleansing Rinsed/ Irrigated with Saline -Foul Odor after Cleansing No -Primary Dressing Applied Other -Other Dressing moist to dry drsg. pt didn't bring vac supplies. ecf will apply [Post Procedure Tolerated] -Treatment Response Procedure Tolerated Well Pain Scale: 0-10 Numeric [Pain] -Is Patient Pain Free? Yes - Visit Discharge [Visit Discharge Information] -Discharge Condition Stable -Ambulatory Status Wheelchair -Transportation ecf transport -Accompanied by caregiver [Facility Notification] -Facility Type [facility] Debridement Note Post-Debridement Measurements/Treatment - Nurse 2 - General Ulcer CM Notes Start: 12/18/19 08:05 Freq: Status: Active Protocol: Activity Type Activity Date Activity User E-Sign Co-Sign Detail Recorded Client Recorded Date Recorded By Document 12/18/19 09:12 [id number] 12/18/19 09:15 12/18/19 09:12 Wound Center Nurse 2 3-right knee graft site -Correct Patient No -Correct Side, Site, Position No -Correct Procedure No -Procedure Performed No -Post Debridement (cm) - Length 0.1 -Post Debridement (cm) - Width 0.1 -Post Debridement (cm) - Depth 0.1 -Total Square (Post) (cm) 0.01 -Area of Debridement (cm) - Length 0.1 -Area of Debridement (cm) - Width 0.1 -Total Square (Area) (cm) 0.01 -Tunneling No -Undermining/Tunneling No -Circular Undermining No -Wound/Ulcer Outcome Not Healed -Ulcer Cleansing Rinsed/ Irrigated with Saline -Foul Odor after Cleansing No -Bioengineered Tissue No -Bleeding Controlled with Pressure -Offloading No -Treatment Response Procedure Tolerated Well -Debridement - Subq, 1st 20sq cm No #2 Right Ant Lower Leg -Correct Patient No -Correct Side, Site, Position No -Correct Procedure No -Procedure Performed No -Post Debridement (cm) - Length 0 -Post Debridement (cm) - Width 0 -Post Debridement (cm) - Depth 0 -Total Square (Post) (cm) 0 -Area of Debridement (cm) - Length 0 -Area of Debridement (cm) - Width 0 -Total Square (Area) (cm) 0 -Tunneling No -Undermining/Tunneling No -Circular Undermining No -Wound/Ulcer Outcome Healed- Graft -Bioengineered Tissue No -Bleeding Controlled with Pressure -Offloading No -Treatment Response Procedure Tolerated Well -Debridement - Subq, 1st 20sq cm No Pain Scale: 0-10 Numeric Is Patient Pain Free? Yes - Nurse 3 - General Ulcer D/C NN Start: 12/18/19 08:05 Freq: Status: Active Protocol: Activity Type Activity Date Activity User E-Sign Co-Sign Detail Recorded Client Recorded Date Recorded By Document 12/18/19 09:33 [facility] [id number] 12/18/19 09:34 [facility] 12/18/19 09:33 Wound Care Nurse 3 3-right knee graft site -Ulcer Cleansing Rinsed/ Irrigated with Saline -Foul Odor after Cleansing No -Primary Dressing Applied Other -Other Dressing moist to dry drsg. pt didn't bring vac supplies. ecf will apply Treatment Response Procedure Tolerated Well Pain Scale: 0-10 Numeric Is Patient Pain Free? Yes - Visit Discharge Discharge Condition Stable Ambulatory Status Wheelchair Transportation ecf transport Accompanied by caregiver Facility Type [facility] Wound debrided: #3 Right inferior knee muscle flap and skin graft. Laterality: Right Wound Grade/Stage: 2. No debridement was completed today - the patient had recent muscle flap and skin graft reconstruction on 11/29/19. Muscle flap is healing satisfactory. Skin graft shows good adherence and vascular ingrowth. About 80% take. Drains were removed today. Sutures were removed today. Assessment/Plan Assessment: 1. Nonhealing ulcer right inferior knee by tibial tubercle. 2. History of revision replacement right knee. 3. History of right TKA infection. 4. Former smoker. 5. Sural nerve injury right posterior leg. 6. 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 Plan: Drains were removed today. Sutures were removed today. Muscle flap is healing satisfactory. Skin graft shows good adherence and vascular ingrowth. About 80% take. Continue VAC at 100 mmHg suction to be changed twice a week. Continue FLOYD wrap for compression and the knee brace. Will remove the knee brace at her next visit in 2 weeks. Continue ambulation in the knee brace using ther walker. Continue Doxycycline and Voriconazole. Prealbumin from 11/30/19 was 24.7. Encourage nutritional supplementation with protein to help the healing process. Followup 2 weeks. [id number]: [id number] Global Visit - ICD-10 - Z48.89, L97.912, Z96.651, T84.53xS, S84.21xA, Z87.891
[2020-01-01 08:42] VITALS: BP 111/53; PULSE 78; RESP 18; TEMP 36.9; BMI 45.3
[2020-01-01 10:01] VITALS: BP 148/84; PULSE 77; RESP 20; TEMP 36.9
--- NOTE | 2020-01-01 12:59 | PN.PCM_ITS ---
Type of Wound Date of Service: 01/01/20 Chief Complaint: Nonhealing ulcer right inferior knee s/p polyethylene exchange and gastrocnemius muslce flap reconstruction on 11/29/19. History of Wound: Surgery 11/29/19 - Irrigation debridement with polyethylene exchange right total knee and xcision sinus tract right knee by Dr Barton. 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 Lazaro. Wound care - VAC and floyd wrap and knee brace. Operative culture - negative. Currently on Doxycycline and Voriconazole. Prealbumin on 11/30/19 was 24.7. Encourage nutritional supplementation with protein to help the healing process. Today she denies fever. Her appetite is good. She is ambulating ok with the walker. There has been minimal drainage in the VAC. She has noticed a small opening in the posterior leg incision. She has burning nerve pain and tingling in the area of the sural nerve distribution. She is taking Neurontin. Progress of Wound: Healing muscle flap and skin graft with mild compromise of the skin graft after surgery 11/29/19. There is a new opening in the mid portion of the posterior leg incision. - Physical Exam Vital Signs Temp Pulse Resp BP 98.4 F 77 20 H 148/84 H 01/01/20 10:01 01/01/20 10:01 01/01/20 10:01 01/01/20 10:01 HEENT: TM's Clear - no bleeding seen. No fluid seen behind the TM's. Lungs: Clear to auscultation Wound Measurements and Assessment WC - Nurse 1 - General Ulcer Measurement Start: 12/18/19 08:05 Freq: Status: Active Protocol: Activity Type Activity Date Activity User E-Sign Co-Sign Detail Recorded Client Recorded Date Recorded By Document 01/01/20 08:42 DL [id number] 01/01/20 08:57 DL 01/01/20 08:42 Wound Center Nurse 1 [Ulcer Assessment] #4 R Post calf -Current Size (cm) - Length 8.5 -Current Size (cm) - Width 0.7 -Current Size (cm) - Depth 0.2 -Total Square Cm 5.95 -Photo Taken Yes -Classification - Thickness Full Thickness without Exposed Support Structure -Exudate Amt Small -Exudate Type Serosanguineous -Wound Margin Distinct, Outline Attached -Granulation Amt None Present (0 %) -Necrosis Amt Large (67-100%) -Necrotic Tissue Type Adherent Slough -Structure Exposed N/A -Texture (Aileen-wound Skin Appearance) Scarring -Moisture (Aileen-wound Skin Appearance Dry/Scaly ) -Color (Aileen-wound Skin Appearance) Hemosiderin Staining -Temperature (Aileen-wound Skin No Abnormality Appearance) (Pt Warm) -Tenderness on Palpation (Aileen-wound No Skin Appearance) -Ulcer Cleansing Wound Cleanser -Foul Odor after Cleansing No -Anesthetic Used 4% Lidocaine Solution 3-right knee graft site -Current Size (cm) - Length 8.5 -Current Size (cm) - Width 5.1 -Current Size (cm) - Depth 0.2 -Total Square Cm 43.35 -Photo Taken No -Exudate Amt Small -Exudate Type Serosanguineous -Wound Margin Distinct, Outline Attached -Granulation Amt Medium (34-66%) -Granulation Quality [place] -Necrosis Amt Medium (34-66%) -Necrotic Tissue Type Adherent Slough -Structure Exposed N/A -Texture (Aileen-wound Skin Appearance) Scarring -Moisture (Aileen-wound Skin Appearance No Abnormality ) -Color (Aileen-wound Skin Appearance) Mottled -Tenderness on Palpation (Aileen-wound Yes Skin Appearance) -Ulcer Cleansing Wound Cleanser -Foul Odor after Cleansing No -Anesthetic Used 4% Lidocaine Solution [Edema Assessment] -Right Calf (cm) 35.5 -Right Ankle (cm) 24 WC - Nurse 2 - General Ulcer CM Notes Start: 12/18/19 08:05 Freq: Status: Active Protocol: Activity Type Activity Date Activity User E-Sign Co-Sign Detail Recorded Client Recorded Date Recorded By Document 01/01/20 09:30 ALETA [id number] 01/01/20 09:37 ALETA 01/01/20 09:30 Wound Center Nurse 2 [Procedure/Treatment] #4 R Post calf -Time 09:30 -Correct Patient Yes -Correct Side, Site, Position Yes -Correct Procedure Yes -Procedure Performed Yes -Type of Procedure Debridement -Clinical Debridement Subcutaneous -Tissue Removed Subcutaneous -Post Debridement (cm) - Length 4.8 -Post Debridement (cm) - Width 0.8 -Post Debridement (cm) - Depth 0.2 -Total Square (Post) (cm) 3.84 -Area of Debridement (cm) - Length 4.8 -Area of Debridement (cm) - Width 0.8 -Total Square (Area) (cm) 3.84 -Tunneling No -Undermining/Tunneling No -Circular Undermining No -Wound/Ulcer Outcome Not Healed -Ulcer Cleansing Rinsed/ Irrigated with Saline -Foul Odor after Cleansing No -Bioengineered Tissue No -Bleeding Controlled with Pressure -Offloading No -Treatment Response Procedure Tolerated Well -Debridement - Subq, 1st 20sq cm Yes 3-right knee graft site -Time 09:34 -Correct Patient Yes -Correct Side, Site, Position Yes -Correct Procedure Yes -Procedure Performed Yes -Type of Procedure Debridement -Clinical Debridement Epidermis / Dermis -Tissue Removed Epidermis, Dermis -Post Debridement (cm) - Length 8.5 -Post Debridement (cm) - Width 5.2 -Post Debridement (cm) - Depth 0.2 -Total Square (Post) (cm) 44.20 -Area of Debridement (cm) - Length 8.5 -Area of Debridement (cm) - Width 5.2 -Total Square (Area) (cm) 44.20 -Tunneling No -Undermining/Tunneling No -Circular Undermining No -Wound/Ulcer Outcome Not Healed -Ulcer Cleansing Rinsed/ Irrigated with Saline -Foul Odor after Cleansing No -Bioengineered Tissue No -Bleeding Controlled with Pressure -Offloading No -Treatment Response Procedure Tolerated Well -Debridement - Open, 1st 20sq cm Yes -Debridement, Open, ea addt'l 20sq cm 2 or part thereof [See Physician Procedure note for Specifics] Pain Scale: 0-10 Numeric [Pain] -Is Patient Pain Free? Yes WC - Nurse 3 - General Ulcer D/C NN Start: 12/18/19 08:05 Freq: Status: Active Protocol: Activity Type Activity Date Activity User E-Sign Co-Sign Detail Recorded Client Recorded Date Recorded By Document 01/01/20 10:01 SOLOMON [id number] 01/01/20 10:04 SOLOMON 01/01/20 10:01 Wound Care Nurse 3 [Wound Dressing] #4 R Post calf -Ulcer Cleansing Wound Cleanser -Foul Odor after Cleansing No -Other Dressing moist gauze -Primary Dressing Covered/Secured Dry Gauze,Dry with Gauze & Roll Gauze 3-right knee graft site -Ulcer Cleansing Wound Cleanser -Other Dressing bacitracin -Primary Dressing Covered/Secured Dry Gauze & with Roll Gauze, Secured with Tape [Post Procedure Tolerated] -Treatment Response Procedure Tolerated Well Vital Signs [Temperature Protocol: VS] -Temperature (97.8 F-99.1 F) 98.4 F -Temperature Source Temporal [Pulse] -Pulse Rate (60-100) 77 -Pulse Location Monitor [Respirations] -Respiratory Rate (12-18) 20 H -Respiratory rate source Observation [Blood Pressure] -Blood Pressure (90/60-120/80) 148/84 H -Blood Pressure Mean (mm Hg) 105 -Source Monitor Pain Scale: 0-10 Numeric [Pain] -Is Patient Pain Free? Yes - Visit Discharge [Visit Discharge Information] -Discharge Condition Stable -Ambulatory Status Wheelchair -Transportation Private Auto -Notes: Vac Stopped,Drs applied per Bijan, faith [Facility Notification] -Facility Type [facility] Care Facility -Orders Sent Yes Debridement Note Post-Debridement Measurements/Treatment - Nurse 2 - General Ulcer CM Notes Start: 12/18/19 08:05 Freq: Status: Active Protocol: Activity Type Activity Date Activity User E-Sign Co-Sign Detail Recorded Client Recorded Date Recorded By Document 12/18/19 09:12 [id number] 12/18/19 09:15 Document 01/01/20 09:30 [id number] 01/01/20 09:37 12/18/19 01/01/20 09:12 09:30 Wound Center Nurse 2 #4 R Post calf -Time 09:30 -Correct Patient Yes -Correct Side, Site, Position Yes -Correct Procedure Yes -Procedure Performed Yes -Type of Procedure Debridement -Clinical Debridement Subcutaneous -Tissue Removed Subcutaneous -Post Debridement (cm) - Length 4.8 -Post Debridement (cm) - Width 0.8 -Post Debridement (cm) - Depth 0.2 -Total Square (Post) (cm) 3.84 -Area of Debridement (cm) - Length 4.8 -Area of Debridement (cm) - Width 0.8 -Total Square (Area) (cm) 3.84 -Tunneling No -Undermining/Tunneling No -Circular Undermining No -Wound/Ulcer Outcome Not Healed -Ulcer Cleansing Rinsed/ Irrigated with Saline -Foul Odor after Cleansing No -Bioengineered Tissue No -Bleeding Controlled with Pressure -Offloading No -Treatment Response Procedure Tolerated Well -Debridement - Subq, 1st 20sq cm Yes 3-right knee graft site -Time 09:34 -Correct Patient No Yes -Correct Side, Site, Position No Yes -Correct Procedure No Yes -Procedure Performed No Yes -Type of Procedure Debridement -Clinical Debridement Epidermis / Dermis -Tissue Removed Epidermis, Dermis -Post Debridement (cm) - Length 0.1 8.5 -Post Debridement (cm) - Width 0.1 5.2 -Post Debridement (cm) - Depth 0.1 0.2 -Total Square (Post) (cm) 0.01 44.20 -Area of Debridement (cm) - Length 0.1 8.5 -Area of Debridement (cm) - Width 0.1 5.2 -Total Square (Area) (cm) 0.01 44.20 -Tunneling No No -Undermining/Tunneling No No -Circular Undermining No No -Wound/Ulcer Outcome Not Healed Not Healed -Ulcer Cleansing Rinsed/ Rinsed/ Irrigated with Irrigated with Saline Saline -Foul Odor after Cleansing No No -Bioengineered Tissue No No -Bleeding Controlled with Pressure Pressure -Offloading No No -Treatment Response Procedure Procedure Tolerated Well Tolerated Well -Debridement - Open, 1st 20sq cm Yes -Debridement, Open, ea addt'l 20sq cm 2 or part thereof -Debridement - Subq, 1st 20sq cm No #2 Right Ant Lower Leg -Correct Patient No -Correct Side, Site, Position No -Correct Procedure No -Procedure Performed No -Post Debridement (cm) - Length 0 -Post Debridement (cm) - Width 0 -Post Debridement (cm) - Depth 0 -Total Square (Post) (cm) 0 -Area of Debridement (cm) - Length 0 -Area of Debridement (cm) - Width 0 -Total Square (Area) (cm) 0 -Tunneling No -Undermining/Tunneling No -Circular Undermining No -Wound/Ulcer Outcome Healed- Graft -Bioengineered Tissue No -Bleeding Controlled with Pressure -Offloading No -Treatment Response Procedure Tolerated Well -Debridement - Subq, 1st 20sq cm No Pain Scale: 0-10 Numeric Is Patient Pain Free? Yes Yes WC - Nurse 3 - General Ulcer D/C NN Start: 12/18/19 08:05 Freq: Status: Active Protocol: Activity Type Activity Date Activity User E-Sign Co-Sign Detail Recorded Client Recorded Date Recorded By Document 12/18/19 09:33 [facility] [id number] 12/18/19 09:34 [facility] Document 01/01/20 10:01 DL [id number] 01/01/20 10:04 DL 12/18/19 01/01/20 09:33 10:01 Wound Care Nurse 3 #4 R Post calf -Ulcer Cleansing Wound Cleanser -Foul Odor after Cleansing No -Other Dressing moist gauze -Primary Dressing Covered/Secured with Dry Gauze,Dry Gauze & Roll Gauze 3-right knee graft site -Ulcer Cleansing Rinsed/ Wound Cleanser Irrigated with Saline -Foul Odor after Cleansing No -Primary Dressing Applied Other -Other Dressing moist to dry bacitracin drsg. pt didn't bring vac supplies. ecf will apply -Primary Dressing Covered/Secured with Dry Gauze & Roll Gauze, Secured with Tape Treatment Response Procedure Procedure Tolerated Well Tolerated Well Pain Scale: 0-10 Numeric Vital Signs Is Patient Pain Free? Yes Yes Temperature (97.8 F-99.1 F) 98.4 F Temperature Source Temporal Pulse Rate (60-100) 77 Pulse Location Monitor Respiratory Rate (12-18) 20 H Respiratory rate source Observation Blood Pressure (90/60-120/80) 148/84 H Blood Pressure Mean (mm Hg) 105 Source Monitor WC - Visit Discharge Discharge Condition Stable Stable Ambulatory Status Wheelchair Wheelchair Transportation ecf transport Private Auto Accompanied by caregiver Notes: Vac Stopped,Drs applied per faith Thakkar Facility Type [facility] Care [facility] Facility Orders Sent Yes Wound debrided: #3 Right inferior knee muscle flap and skin graft. Laterality: Right Wound Grade/Stage: 2. Type of Debridement: Selective debridement Anesthesia Used: 4% Lidocaine Solution Depth: - - small amounts of nonviable skin graft. Percentage of wound debrided: 20 Instrument Used: 3mm curette Tissue Removed: some nonviable skin graft. Severity: Limited To Skin Breakdown - some nonviable skin graft. Amount of bleeding with debridement: Mild Bleeding Controlled with: Pressure Patient tolerated procedure well - Additional Wound Wound debrided: #4 Right posterior leg. Laterality: Right Wound Grade/Stage: 2. Type of Debridement: Excisional debridement Anesthesia Used: 4% Lidocaine Solution Depth: Down to and including healthy tissue, in the subcutaneous layer Percentage of wound debrided: 100 Instrument Used: 3mm curette, - - scissors. Tissue Removed: subcutaneous tissue. Severity: Fat Layer Exposed Amount of bleeding with debridement: Mild Bleeding Controlled with: Pressure Patient tolerated procedure: Patient tolerated procedure well Assessment/Plan Assessment: 1. Nonhealing ulcer right inferior knee by tibial tubercle. 2. History of revision replacement right knee. 3. History of right TKA infection. 4. Former smoker. 5. Sural nerve injury right posterior leg. 6. 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 7. Nonhealing surgical wound right posterior leg. 8. Mild skin graft compromise right inferior knee. Plan: Muscle flap is healing satisfactory. Skin graft shows good adherence and vascular ingrowth. About 80% take. Mild scattered areas of skin graft com promise noted. Can benefit from HBO therapy to improve the salvage of the skin graft. She will need a CXR prior to the treatments. Will stop the VAC. Begin Bacitracin ointment daily to the skin graft followed by gauze dressing. Continue FLOYD wrap for compression and the knee brace. Can remove the knee brace and start some range of motion. She will coordinate that with her Orthopedic Surgeon. I recommend that when walking initially, she should still wear the knee brace until her range of motion improves to the point that her knee won't cause sudden pain while ambulating which can lead to falling and possibly causing further injury. Other option is she can try ambulating without the knee brace as long as she is using the walker to minimize falling if her knee were to develop sudden pain during initial range of motion. Continue Doxycycline and Voriconazole. Prealbumin from 11/30/19 was 24.7. Encourage nutritional supplementation with protein to help the healing process. For the small wound opening on the mid portion of the posterior leg incision, will begin Dakin's dressing changes daily. Followup one week. [id number]: [id number] Global Visit - ICD-10 - Z48.89, L97.912, Z96.651, T84.53xS, S84.21xA, T81.89xA, Z87.891
== END 2020-01-03 23:59 ==
LOC: WC 09:00
PROVIDERS: PCP Family Medicine; Referring Provider Surgery; Visit Provider Surgery
DX: L97.912 Non-pressure chronic ulcer of unspecified part of right lower leg with fat layer exposed (principal); T84.53XS Infection and inflammatory reaction due to internal right knee prosthesis, sequela; S84.21XA Injury of cutaneous sensory nerve at lower leg level, right leg, initial encounter; Z48.89 Encounter for other specified surgical aftercare; Z87.891 Personal history of nicotine dependence; Z96.651 Presence of right artificial knee joint
CPT/HCPCS: 11042; 97597; 97598; 99213; G0463

== ENCOUNTER 2020-02-02 08:00 | Outpatient (RCR) | payer BC, SELFPAY ==
[2020-01-04 00:38] VITALS: BP 148/84; PULSE 77; RESP 20; TEMP 36.9
[2020-01-08 08:29] VITALS: BP 124/46; PULSE 86; RESP 20; TEMP 36.2; BMI 45.3
--- NOTE | 2020-01-08 12:14 | PN.PCM_ITS ---
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 History of Wound: Surgery 11/29/19 - Irrigation debridement with polyethylene exchange right total knee and excision sinus tract right knee by Dr Barton. 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 Lazaro. Wound care - was using VAC and roger wrap and knee brace; refused further vac use. Operative culture - negative. Currently on Doxycycline and Voriconazole. Prealbumin on 11/30/19 was 24.7. Encourage nutritional supplementation with protein to help the healing process. Today she denies fever. Her appetite is good. She is ambulating ok with the walker. She had some dehiscence of the posterior leg incision. She has burning nerve pain and tingling in the area of the sural nerve distribution. She is taking Neurontin. Progress of Wound: Healing muscle flap and skin graft with mild compromise of the skin graft after surgery 11/29/19. There is opening in the mid portion of the posterior leg incision. The patient denies any fever, chills, nausea, vomiting, or diarrhea. Denies any redness, swelling, or purulent/malodorous drainage from affected area. - Physical Exam Vital Signs Temp Pulse Resp BP 97.2 F L 86 20 H 124/46 H 01/08/20 08:29 01/08/20 08:29 01/08/20 08:29 01/08/20 08:29 General: Alert, Cooperative, No apparent distress HEENT: Atraumatic, Normocephalic Oral: Moist Mucosa Neck: Supple, Trachea Midline Lungs: Normal air movement Extremities: No clubbing, No cyanosis Skin: Ulcer/ Wound - 1. Ulcer of right knee with subcutaneous layer exposed. No tunneling, undermining, or probing to bone. Healing is satisfactory. There is no aileen-ulcer erythema, warmth, or tenderness to palpation. There is no purulent drainage. 2. Right posterior leg with surgical wound dehiscence, subcutaneous layer exposed. There is no tunneling, undermining, or probing to bone. There is a small to moderate amount of slough and devitalized tissue present. There is no aileen-wound erythema, warmth, or tenderness to palpation. There is no purulent/malodorous drainage. Wound Measurements and Assessment WC - Nurse 1 - General Ulcer Measurement Start: 01/08/20 08:29 Freq: Status: Active Protocol: Activity Type Activity Date Activity User E-Sign Co-Sign Detail Recorded Client Recorded Date Recorded By Document 01/08/20 08:29 DL [id number] 01/08/20 08:39 DL 01/08/20 08:29 Wound Center Nurse 1 [Ulcer Assessment] #4 R Post calf -Current Size (cm) - Length 5.8 -Current Size (cm) - Width 1.8 -Current Size (cm) - Depth 0.7 -Total Square Cm 10.44 -Photo Taken No -Exudate Amt Small -Exudate Type Serosanguineous -Wound Margin Distinct, Outline Attached -Granulation Amt Medium (34-66%) -Granulation Quality Red -Necrosis Amt Medium (34-66%) -Necrotic Tissue Type Adherent Slough -Structure Exposed N/A -Texture (Aileen-wound Skin Appearance) Scarring -Moisture (Aileen-wound Skin Appearance Dry/Scaly ) -Color (Aileen-wound Skin Appearance) Hemosiderin Staining -Temperature (Aileen-wound Skin No Abnormality Appearance) (Pt Warm) -Tenderness on Palpation (Aileen-wound Yes Skin Appearance) -Ulcer Cleansing Wound Cleanser -Foul Odor after Cleansing No -Anesthetic Used 4% Lidocaine Solution 3-right knee graft site -Current Size (cm) - Length 9 -Current Size (cm) - Width 4.8 -Current Size (cm) - Depth 0.1 -Total Square Cm 43.2 -Photo Taken No -Exudate Amt Small -Exudate Type Serosanguineous -Wound Margin Distinct, Outline Attached -Granulation Amt Small (1-33%) -Granulation Quality Red -Necrosis Amt Large (67-100%) -Necrotic Tissue Type Adherent Slough -Structure Exposed N/A -Texture (Aileen-wound Skin Appearance) Scarring -Moisture (Aileen-wound Skin Appearance No Abnormality ) -Color (Aileen-wound Skin Appearance) No Abnormality -Temperature (Aileen-wound Skin No Abnormality Appearance) (Pt Warm) -Tenderness on Palpation (Aileen-wound No Skin Appearance) -Ulcer Cleansing Wound Cleanser -Foul Odor after Cleansing No -Anesthetic Used 4% Lidocaine Solution [Edema Assessment] -Right Calf (cm) 37 -Right Ankle (cm) 24.2 WC - Nurse 2 - General Ulcer CM Notes Start: 01/08/20 08:29 Freq: Status: Active Protocol: Activity Type Activity Date Activity User E-Sign Co-Sign Detail Recorded Client Recorded Date Recorded By Document 01/08/20 09:02 ALETA [id number] 01/08/20 09:24 ALETA 01/08/20 09:02 Wound Center Nurse 2 [Procedure/Treatment] #4 R Post calf -Time 09:19 -Correct Patient Yes -Correct Side, Site, Position Yes -Correct Procedure Yes -Procedure Performed Yes -Type of Procedure Debridement -Clinical Debridement Subcutaneous -Tissue Removed Subcutaneous -Post Debridement (cm) - Length 17.1 -Post Debridement (cm) - Width 1.9 -Post Debridement (cm) - Depth 1.5 -Total Square (Post) (cm) 32.49 -Area of Debridement (cm) - Length 17.1 -Area of Debridement (cm) - Width 1.9 -Total Square (Area) (cm) 32.49 -Tunneling No -Undermining/Tunneling No -Circular Undermining No -Wound/Ulcer Outcome Not Healed -Ulcer Cleansing Rinsed/ Irrigated with Saline -Foul Odor after Cleansing No -Bioengineered Tissue No -Bleeding Controlled with Pressure -Offloading No -Treatment Response Procedure Tolerated Well -Debridement - Subq, 1st 20sq cm No 3-right knee graft site -Time 09:06 -Correct Patient Yes -Correct Side, Site, Position Yes -Correct Procedure Yes -Procedure Performed Yes -Type of Procedure Debridement -Clinical Debridement Subcutaneous -Tissue Removed Subcutaneous -Post Debridement (cm) - Length 9.6 -Post Debridement (cm) - Width 4.8 -Post Debridement (cm) - Depth 0.1 -Total Square (Post) (cm) 46.08 -Area of Debridement (cm) - Length 9.6 -Area of Debridement (cm) - Width 4.8 -Total Square (Area) (cm) 46.08 -Tunneling No -Undermining/Tunneling No -Circular Undermining No -Wound/Ulcer Outcome Not Healed -Ulcer Cleansing Rinsed/ Irrigated with Saline -Foul Odor after Cleansing No -Bioengineered Tissue No -Bleeding Controlled with Pressure -Offloading No -Treatment Response Procedure Tolerated Well -Debridement - Subq, 1st 20sq cm Yes -Debridement, SubQ, ea addt'l 20sq cm 3 or part thereof [See Physician Procedure note for Specifics] Pain Scale: 0-10 Numeric [Pain] -Is Patient Pain Free? Yes - Nurse 3 - General Ulcer D/C NN Start: 01/08/20 08:29 Freq: Status: Active Protocol: Activity Type Activity Date Activity User E-Sign Co-Sign Detail Recorded Client Recorded Date Recorded By Document 01/08/20 09:38 [facility] [id number] 01/08/20 09:39 [facility] 01/08/20 09:38 Wound Care Nurse 3 [Wound Dressing] #4 R Post calf -Ulcer Cleansing Rinsed/ Irrigated with Saline -Foul Odor after Cleansing No -Primary Dressing Applied Aquacel AG 4x4 -Primary Dressing Covered/Secured Dry Gauze & with Roll Gauze, Secured with Tape,Other -Other Covering abd -Aquacel AG 4x4 1 3-right knee graft site -Ulcer Cleansing Rinsed/ Irrigated with Saline -Foul Odor after Cleansing No -Primary Dressing Applied Other -Other Dressing atb oint -Primary Dressing Covered/Secured Dry Gauze & with Roll Gauze, Secured with Tape,Other -Other Covering abd [Compression Applied] Right -Compression Wrap Roger Wrap [Post Procedure Tolerated] -Treatment Response Procedure Tolerated Well Pain Scale: 0-10 Numeric [Pain] -Is Patient Pain Free? Yes WC - Visit Discharge [Visit Discharge Information] -Discharge Condition Stable -Ambulatory Status Ambulatory, Walker -Transportation Private Auto [Facility Notification] -Facility Type Home Health Musculoskeletal: Tenderness - On manipulation of right posterior leg wound Psych/Mental Status: Normal Affect, Appropriate Debridement Note Post-Debridement Measurements/Treatment WC - Nurse 2 - General Ulcer CM Notes Start: 01/08/20 08:29 Freq: Status: Active Protocol: Activity Type Activity Date Activity User E-Sign Co-Sign Detail Recorded Client Recorded Date Recorded By Document 01/08/20 09:02 ALETA [id number] 01/08/20 09:24 ALETA 01/08/20 09:02 Wound Center Nurse 2 #4 R Post calf -Time 09:19 -Correct Patient Yes -Correct Side, Site, Position Yes -Correct Procedure Yes -Procedure Performed Yes -Type of Procedure Debridement -Clinical Debridement Subcutaneous -Tissue Removed Subcutaneous -Post Debridement (cm) - Length 17.1 -Post Debridement (cm) - Width 1.9 -Post Debridement (cm) - Depth 1.5 -Total Square (Post) (cm) 32.49 -Area of Debridement (cm) - Length 17.1 -Area of Debridement (cm) - Width 1.9 -Total Square (Area) (cm) 32.49 -Tunneling No -Undermining/Tunneling No -Circular Undermining No -Wound/Ulcer Outcome Not Healed -Ulcer Cleansing Rinsed/ Irrigated with Saline -Foul Odor after Cleansing No -Bioengineered Tissue No -Bleeding Controlled with Pressure -Offloading No -Treatment Response Procedure Tolerated Well -Debridement - Subq, 1st 20sq cm No 3-right knee graft site -Time 09:06 -Correct Patient Yes -Correct Side, Site, Position Yes -Correct Procedure Yes -Procedure Performed Yes -Type of Procedure Debridement -Clinical Debridement Subcutaneous -Tissue Removed Subcutaneous -Post Debridement (cm) - Length 9.6 -Post Debridement (cm) - Width 4.8 -Post Debridement (cm) - Depth 0.1 -Total Square (Post) (cm) 46.08 -Area of Debridement (cm) - Length 9.6 -Area of Debridement (cm) - Width 4.8 -Total Square (Area) (cm) 46.08 -Tunneling No -Undermining/Tunneling No -Circular Undermining No -Wound/Ulcer Outcome Not Healed -Ulcer Cleansing Rinsed/ Irrigated with Saline -Foul Odor after Cleansing No -Bioengineered Tissue No -Bleeding Controlled with Pressure -Offloading No -Treatment Response Procedure Tolerated Well -Debridement - Subq, 1st 20sq cm Yes -Debridement, SubQ, ea addt'l 20sq cm 3 or part thereof Pain Scale: 0-10 Numeric Is Patient Pain Free? Yes - Nurse 3 - General Ulcer D/C NN Start: 01/08/20 08:29 Freq: Status: Active Protocol: Activity Type Activity Date Activity User E-Sign Co-Sign Detail Recorded Client Recorded Date Recorded By Document 01/08/20 09:38 [facility] [id number] 01/08/20 09:39 [facility] 01/08/20 09:38 Wound Care Nurse 3 #4 R Post calf -Ulcer Cleansing Rinsed/ Irrigated with Saline -Foul Odor after Cleansing No -Primary Dressing Applied Aquacel AG 4x4 -Primary Dressing Covered/Secured with Dry Gauze & Roll Gauze, Secured with Tape,Other -Other Covering abd -Aquacel AG 4x4 1 3-right knee graft site -Ulcer Cleansing Rinsed/ Irrigated with Saline -Foul Odor after Cleansing No -Primary Dressing Applied Other -Other Dressing atb oint -Primary Dressing Covered/Secured with Dry Gauze & Roll Gauze, Secured with Tape,Other -Other Covering abd Right -Compression Wrap Roger Wrap Treatment Response Procedure Tolerated Well Pain Scale: 0-10 Numeric Is Patient Pain Free? Yes - Visit Discharge Discharge Condition Stable Ambulatory Status Ambulatory, Walker Transportation Private [facility] Facility Type Home Health Wound debrided: Right inferior knee muscle flap and skin graft Laterality: Right Type of Debridement: Excisional debridement, Selective debridement Anesthesia Used: 4% Lidocaine Solution Depth: - - Small amounts of nonviable skin graft Percentage of wound debrided: 20 Instrument Used: 7mm curette Tissue Removed: Slough and devitalized tissue; small amounts of nonviable skin graft Severity: Fat Layer Exposed - Some nonviable skin graft Amount of bleeding with debridement: Mild Bleeding Controlled with: Pressure Patient tolerated procedure well - Additional Wound Wound debrided: Right posterior leg Laterality: Right Type of Debridement: Excisional debridement Anesthesia Used: 4% Lidocaine Solution Depth: in the subcutaneous layer Percentage of wound debrided: 100 Instrument Used: 3mm curette, 5mm curette Tissue Removed: Slough and devitalized tissue Severity: Fat Layer Exposed Amount of bleeding with debridement: Mild Bleeding Controlled with: Pressure Patient tolerated procedure: Patient tolerated procedure well Assessment/Plan Active Problems Nonhealing surgical wound (Chronic) Infection and inflammatory reaction due to internal right knee prosthesis, sequela (Chronic) 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 Nonhealing ulcer right inferior knee by tibial tubercle. 2. History of revision replacement right knee. 3. History of right TKA infection. 4. Former smoker. 5. Sural nerve injury right posterior leg. 6. 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 7. Nonhealing surgical wound right posterior leg. 8. Mild skin graft compromise right inferior knee. Plan: Muscle flap is healing satisfactory. Skin graft shows good adherence and vascular ingrowth. About 80% take. Mild scattered areas of skin graft compromise noted. Can benefit from HBO therapy to improve the salvage of the skin graft. She will need a CXR prior to the treatments. VAC was discontinued. She will continue bacitracin ointment daily to the skin graft followed by gauze dressing. Continue ROGER wrap for compression and the knee brace. Can remove the knee brace and start some range of motion. She will coordinate that with her Orthopedic Surgeon. I recommend that when walking initially, she should still wear the knee brace until her range of motion improves to the point that her knee won't cause sudden pain while ambulating which can lead to falling and possibly causing further injury. Other option is she can try ambulating without the knee brace as long as she is using the walker to minimize falling if her knee were to develop sudden pain during initial range of motion. Continue Doxycycline and Voriconazole. Prealbumin from 11/30/19 was 24.7. Encourage nutritional supplementation with protein to help the healing process. For the small wound opening on the mid portion of the posterior leg incision, continue with Dakin solution, and dress daily with Aquacel Ag dressing. Followup in one week. Follow-up sooner should new or concerning symptoms arise. Note: [employer] speech recognition magneto specialist software was used to create portions of this document. Sound-alike and misspelled words, as well as other magneto specialist errors may be contained in the documentation. [id number]: [id number] Global Visit
[2020-01-15 10:01] VITALS: BP 140/78; PULSE 73; RESP 16; TEMP 36.5; BMI 45.3
[2020-01-15 10:52] VITALS: BP 138/78
--- NOTE | 2020-01-15 16:10 | PN.PCM_ITS ---
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 History of Wound: Surgery 11/29/19 - Irrigation debridement with polyethylene exchange right total knee and excision sinus tract right knee by Dr Barton. 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 Lazaro. Wound care - was using VAC and roger wrap and knee brace; refused further vac use. Operative culture - negative. Currently on Doxycycline and Voriconazole. Prealbumin on 11/30/19 was 24.7. Encourage nutritional supplementation with protein to help the healing process. Today she denies fever. Her appetite is good. She is ambulating ok with the walker. She had some dehiscence of the posterior leg incision. She has burning nerve pain and tingling in the area of the sural nerve distribution. She is taking Neurontin. Progress of Wound: Healing muscle flap and skin graft with mild compromise of the skin graft after surgery 11/29/19. There is opening in the mid portion of the posterior leg incision, which is improved from last week in size and appearance. The patient denies any fever, chills, nausea, vomiting, or diarrhea. Denies any redness, swelling, or purulent/malodorous drainage from affected area. - Physical Exam Vital Signs Temp Pulse Resp BP 97.7 F L 73 16 138/78 H 01/15/20 10:01 01/15/20 10:01 01/15/20 10:01 01/15/20 10:52 General: Alert, Cooperative, No apparent distress HEENT: Atraumatic, Normocephalic Oral: Moist Mucosa Neck: Supple Lungs: Normal air movement Extremities: No clubbing, No cyanosis, No edema, Capillary Refill Less than 3 Seconds Skin: Ulcer/ Wound - 1. Ulcer of right knee with subcutaneous layer exposed. No tunneling, undermining, or probing to bone. Healing is satisfactory. There is no aileen-ulcer erythema, warmth, or tenderness to palpation. There is no purulent drainage. 2. Right posterior leg with surgical wound dehiscence, subcutaneous layer exposed. There is no tunneling, undermining, or probing to bone. There is a small to moderate amount of slough and devitalized tissue present. There is no periwound erythema, warmth, tenderness to palpation. The re is no purulent/malodorous drainage. Wound Measurements and Assessment WC - Nurse 1 - General Ulcer Measurement Start: 01/08/20 08:29 Freq: Status: Active Protocol: Activity Type Activity Date Activity User E-Sign Co-Sign Detail Recorded Client Recorded Date Recorded By Document 01/15/20 10:01 [facility] [id number] 01/15/20 10:11 [facility] 01/15/20 10:01 Wound Center Nurse 1 [Ulcer Assessment] #4 R Post calf -Combined with other wound No -Current Size (cm) - Length 14.8 -Current Size (cm) - Width 1.7 -Current Size (cm) - Depth 0.4 -Total Square Cm 25.16 -Photo Taken No -Epithelialization None Present -Tunneling No -Undermining/Tunneling No -Circular Undermining No -Exudate Amt Small -Exudate Type Serosanguineous -Wound Margin Distinct, Outline Attached -Granulation Amt Medium (34-66%) -Granulation Quality Red -Slough/Fibrin Yes -Necrosis Amt Medium (34-66%) -Necrotic Tissue Type Adherent Slough -Texture (Aileen-wound Skin Appearance) Assessed, Scarring -Moisture (Aileen-wound Skin Appearance Assessed,Dry/ ) Scaly -Color (Aileen-wound Skin Appearance) Assessed -Temperature (Aileen-wound Skin No Abnormality Appearance) (Pt Warm) -Tenderness on Palpation (Aileen-wound No Skin Appearance) -Ulcer Cleansing Rinsed/ Irrigated with Saline -Foul Odor after Cleansing No -Anesthetic Used 4% Lidocaine Solution 3-right knee graft site -Combined with other wound No -Current Size (cm) - Length 9.2 -Current Size (cm) - Width 4.6 -Current Size (cm) - Depth 0.1 -Total Square Cm 42.32 -Photo Taken No -Epithelialization Small 1-33% -Tunneling No -Undermining/Tunneling No -Circular Undermining No -Exudate Amt Small -Exudate Type Serosanguineous -Wound Margin Distinct, Outline Attached -Granulation Amt Medium (34-66%) -Granulation Quality Red -Slough/Fibrin Yes -Necrosis Amt Large (67-100%) -Necrotic Tissue Type Adherent Slough -Texture (Aileen-wound Skin Appearance) Assessed, Scarring -Moisture (Aileen-wound Skin Appearance Assessed,Dry/ ) Scaly -Color (Aileen-wound Skin Appearance) Assessed -Temperature (Aileen-wound Skin No Abnormality Appearance) (Pt Warm) -Tenderness on Palpation (Aileen-wound No Skin Appearance) -Ulcer Cleansing Rinsed/ Irrigated with Saline -Foul Odor after Cleansing No -Anesthetic Used 4% Lidocaine Solution [Edema Assessment] -Lower Limb Edema Present Yes -Right Calf (cm) 40 -Right Ankle (cm) 24 WC - Nurse 2 - General Ulcer CM Notes Start: 01/08/20 08:29 Freq: Status: Active Protocol: Activity Type Activity Date Activity User E-Sign Co-Sign Detail Recorded Client Recorded Date Recorded By Document 01/15/20 10:21 [facility] [id number] 01/15/20 10:33 [facility] 01/15/20 10:21 Wound Center Nurse 2 [Procedure/Treatment] #4 R Post calf -Time 10:26 -Correct Patient Yes -Correct Side, Site, Position Yes -Correct Procedure Yes -Procedure Performed Yes -Type of Procedure Debridement -Clinical Debridement Subcutaneous -Tissue Removed Subcutaneous -Post Debridement (cm) - Length 17.1 -Post Debridement (cm) - Width 1.6 -Post Debridement (cm) - Depth 0.9 -Total Square (Post) (cm) 27.36 -Area of Debridement (cm) - Length 17.1 -Area of Debridement (cm) - Width 1.6 -Total Square (Area) (cm) 27.36 -Tunneling No -Undermining/Tunneling No -Circular Undermining No -Wound/Ulcer Outcome Not Healed -Ulcer Cleansing Rinsed/ Irrigated with Saline -Foul Odor after Cleansing No -Bioengineered Tissue No -Bleeding Controlled with Pressure -Offloading No -Treatment Response Procedure Tolerated Well -Debridement - Subq, 1st 20sq cm No -Debridement, SubQ, ea addt'l 20sq cm 1 or part thereof 3-right knee graft site -Time 10:22 -Correct Patient Yes -Correct Side, Site, Position Yes -Correct Procedure Yes -Procedure Performed Yes -Type of Procedure Debridement -Clinical Debridement Subcutaneous -Tissue Removed Subcutaneous -Post Debridement (cm) - Length 9.6 -Post Debridement (cm) - Width 4.5 -Post Debridement (cm) - Depth 0.1 -Total Square (Post) (cm) 43.20 -Area of Debridement (cm) - Length 9.6 -Area of Debridement (cm) - Width 4.5 -Total Square (Area) (cm) 43.20 -Tunneling No -Undermining/Tunneling No -Circular Undermining No -Wound/Ulcer Outcome Not Healed -Ulcer Cleansing Rinsed/ Irrigated with Saline -Foul Odor after Cleansing No -Bioengineered Tissue No -Bleeding Controlled with Pressure -Offloading No -Treatment Response Procedure Tolerated Well -Debridement - Subq, 1st 20sq cm Yes -Debridement, SubQ, ea addt'l 20sq cm 3 or part thereof [See Physician Procedure note for Specifics] Pain Scale: 0-10 Numeric [Pain] -Is Patient Pain Free? Yes WC - Nurse 3 - General Ulcer D/C NN Start: 01/08/20 08:29 Freq: Status: Active Protocol: Activity Type Activity Date Activity User E-Sign Co-Sign Detail Recorded Client Recorded Date Recorded By Document 01/15/20 10:52 RB [id number] 01/15/20 10:54 RB 01/15/20 10:52 Wound Care Nurse 3 [Wound Dressing] #4 R Post calf -Ulcer Cleansing Rinsed/ Irrigated with Saline -Primary Dressing Applied Aquacel AG 4x4 -Primary Dressing Covered/Secured Dry Gauze,Dry with Gauze & Roll Gauze,Secured with Tape -Aquacel AG 4x4 2 3-right knee graft site -Ulcer Cleansing Rinsed/ Irrigated with Saline -Other Dressing bacitracin -Primary Dressing Covered/Secured Dry Gauze,Dry with Gauze & Roll Gauze,Secured with Tape [Compression Applied] Right -Other roger Vital Signs [Blood Pressure] -Blood Pressure (90/60-120/80) 138/78 H -Blood Pressure Mean (mm Hg) 98 -Source Monitor -Position Semi-Fowlers -Blood Pressure Location Left Arm Pain Scale: 0-10 Numeric [Pain] -Is Patient Pain Free? Yes WC - Visit Discharge [Visit Discharge Information] -Discharge Condition Stable -Ambulatory Status Ambulatory -Transportation Private Auto -Medication Reconcilliation completed No & provided to patient/care provider -Clinical Summary of Care Provided Yes Psych/Mental Status: Normal Affect, Appropriate Debridement Note Post-Debridement Measurements/Treatment - Nurse 2 - General Ulcer CM Notes Start: 01/08/20 08:29 Freq: Status: Active Protocol: Activity Type Activity Date Activity User E-Sign Co-Sign Detail Recorded Client Recorded Date Recorded By Document 01/08/20 09:02 [id number] 01/08/20 09:24 Document 01/15/20 10:21 [id number] 01/15/20 10:33 01/08/20 01/15/20 09:02 10:21 Wound Center Nurse 2 #4 R Post calf -Time 09:19 10:26 -Correct Patient Yes Yes -Correct Side, Site, Position Yes Yes -Correct Procedure Yes Yes -Procedure Performed Yes Yes -Type of Procedure Debridement Debridement -Clinical Debridement Subcutaneous Subcutaneous -Tissue Removed Subcutaneous Subcutaneous -Post Debridement (cm) - Length 17.1 17.1 -Post Debridement (cm) - Width 1.9 1.6 -Post Debridement (cm) - Depth 1.5 0.9 -Total Square (Post) (cm) 32.49 27.36 -Area of Debridement (cm) - Length 17.1 17.1 -Area of Debridement (cm) - Width 1.9 1.6 -Total Square (Area) (cm) 32.49 27.36 -Tunneling No No -Undermining/Tunneling No No -Circular Undermining No No -Wound/Ulcer Outcome Not Healed Not Healed -Ulcer Cleansing Rinsed/ Rinsed/ Irrigated with Irrigated with Saline Saline -Foul Odor after Cleansing No No -Bioengineered Tissue No No -Bleeding Controlled with Pressure Pressure -Offloading No No -Treatment Response Procedure Procedure Tolerated Well Tolerated Well -Debridement - Subq, 1st 20sq cm No No -Debridement, SubQ, ea addt'l 20sq cm 1 or part thereof 3-right knee graft site -Time 09:06 10:22 -Correct Patient Yes Yes -Correct Side, Site, Position Yes Yes -Correct Procedure Yes Yes -Procedure Performed Yes Yes -Type of Procedure Debridement Debridement -Clinical Debridement Subcutaneous Subcutaneous -Tissue Removed Subcutaneous Subcutaneous -Post Debridement (cm) - Length 9.6 9.6 -Post Debridement (cm) - Width 4.8 4.5 -Post Debridement (cm) - Depth 0.1 0.1 -Total Square (Post) (cm) 46.08 43.20 -Area of Debridement (cm) - Length 9.6 9.6 -Area of Debridement (cm) - Width 4.8 4.5 -Total Square (Area) (cm) 46.08 43.20 -Tunneling No No -Undermining/Tunneling No No -Circular Undermining No No -Wound/Ulcer Outcome Not Healed Not Healed -Ulcer Cleansing Rinsed/ Rinsed/ Irrigated with Irrigated with Saline Saline -Foul Odor after Cleansing No No -Bioengineered Tissue No No -Bleeding Controlled with Pressure Pressure -Offloading No No -Treatment Response Procedure Procedure Tolerated Well Tolerated Well -Debridement - Subq, 1st 20sq cm Yes Yes -Debridement, SubQ, ea addt'l 20sq cm 3 3 or part thereof Pain Scale: 0-10 Numeric Is Patient Pain Free? Yes Yes - Nurse 3 - General Ulcer D/C NN Start: 01/08/20 08:29 Freq: Status: Active Protocol: Activity Type Activity Date Activity User E-Sign Co-Sign Detail Recorded Client Recorded Date Recorded By Document 01/08/20 09:38 [facility] [id number] 01/08/20 09:39 [facility] Document 01/15/20 10:52 [id number] 01/15/20 10:54 RB 01/08/20 01/15/20 09:38 10:52 Wound Care Nurse 3 #4 R Post calf -Ulcer Cleansing Rinsed/ Rinsed/ Irrigated with Irrigated with Saline Saline -Foul Odor after Cleansing No -Primary Dressing Applied Aquacel AG 4x4 Aquacel AG 4x4 -Primary Dressing Covered/Secured with Dry Gauze & Dry Gauze,Dry Roll Gauze, Gauze & Roll Secured with Gauze,Secured Tape,Other with Tape -Other Covering abd -Aquacel AG 4x4 1 2 3-right knee graft site -Ulcer Cleansing Rinsed/ Rinsed/ Irrigated with Irrigated with Saline Saline -Foul Odor after Cleansing No -Primary Dressing Applied Other -Other Dressing atb oint bacitracin -Primary Dressing Covered/Secured with Dry Gauze & Dry Gauze,Dry Roll Gauze, Gauze & Roll Secured with Gauze,Secured Tape,Other with Tape -Other Covering abd Right -Compression Wrap Roger Wrap -Other roger Treatment Response Procedure Tolerated Well Vital Signs Blood Pressure (90/60-120/80) 138/78 H Blood Pressure Mean (mm Hg) 98 Source Monitor Position Semi-Fowlers Blood Pressure Location Left Arm Pain Scale: 0-10 Numeric Is Patient Pain Free? Yes Yes WC - Visit Discharge Discharge Condition Stable Stable Ambulatory Status Ambulatory, Ambulatory Walker Transportation Private Auto Private Auto Medication Reconcilliation completed & No provided to patient/care provider Clinical Summary of Care Provided Yes Facility Type Home Health Wound debrided: Right inferior knee muscle flap and skin graft Laterality: Right Type of Debridement: Excisional debridement, Selective debridement Anesthesia Used: 4% Lidocaine Solution Depth: in the subcutaneous layer Percentage of wound debrided: 20 Instrument Used: 7mm curette Tissue Removed: Slough and devitalized tissue; small amounts of nonviable skin graft Severity: Fat Layer Exposed Amount of bleeding with debridement: Mild Bleeding Controlled with: Pressure Patient tolerated procedure well - Additional Wound Wound debrided: Right posterior leg Type of Debridement: Excisional debridement Anesthesia Used: 4% Lidocaine Solution Depth: in the subcutaneous layer Percentage of wound debrided: 100 Instrument Used: 5mm curette Tissue Removed: Slough and devitalized tissue Severity: Fat Layer Exposed Amount of bleeding with debridement: Mild Bleeding Controlled with: Pressure Patient tolerated procedure: Patient tolerated procedure well Assessment/Plan Active Problems Nonhealing surgical wound (Chronic) Infection and inflammatory reaction due to internal right knee prosthesis, sequela (Chronic) 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 Nonhealing ulcer right inferior knee by tibial tubercle. 2. History of revision replacement right knee. 3. History of right TKA infection. 4. Former smoker. 5. Sural nerve injury right posterior leg. 6. 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 7. Nonhealing surgical wound right posterior leg. 8. Mild skin graft compromise right inferior knee. Plan: Muscle flap is healing satisfactory. Skin graft shows good adherence and vascular ingrowth. About 80% take. Mild scattered areas of skin graft compromise noted. Can benefit from HBO therapy to improve the salvage of the skin graft. She will need a CXR prior to the treatments. VAC was discontinued. She will continue bacitracin ointment daily to the skin graft followed by gauze dressing. Continue ROGER wrap for compression. Per Dr. Barton, she no longer needs to wear the knee brace. Prealbumin from 11/30/19 was 24.7. Encourage nutritional supplementation with protein to help the healing process. For the small wound opening on the mid portion of the posterior leg incision, continue with Dakin solution, and dress daily with Aquacel Ag dressing. Follow-up in 2 weeks. Follow-up sooner should new or concerning symptoms arise. Note: [email or web address] speech recognition systems technologist software was used to create portions of this document. Sound-alike and misspelled words, as well as other systems technologist errors may be contained in the documentation. [id number]: [id number] Global Visit
[2020-01-24 13:30] LABS: Bedside Glucose 163 mg/dL (70-110)
--- NOTE | 2020-01-24 13:32 | HBO.PN.PCM_ITS ---
History of Present Illness Date of Service: 01/24/20 Presenting Chief Complaint: Nonhealing ulcer right inferior knee s/p polyethylene exchange and gastrocnemius muscle flap reconstruction on 11/29/19. RAJESH CARRENO is a 59 year old currently undergoing hyperbaric oxygen therapy for right inferior knee wound with right medial gastrocnemius muscular rotation flap. Progress: Today's session represents the 1st session of hyperbaric oxygen therapy, of an expected 20 such treatments. Tolerance of hyperbaric oxygen therapy: Hyperbaric oxygen therapy was administered as per the facility's protocol. Hyperbaric oxygen therapy was administered for 90 minutes at 2 tahir, with no air breaks. Upon emergence from the hyperbaric oxygen chamber the patient had no complaints or complications. The patient's vital signs remained stable. The patient was discharged in good condition. The documented blood glucose levels per nursing documentation. 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) Nonhealing ulcer right inferior knee by tibial tubercle History of DVT (deep vein thrombosis) (Chronic) Septic arthritis of knee, right (Chronic) Hx of total knee replacement (Chronic) right Restless leg (Chronic) RENNY (obstructive sleep apnea) (Chronic) Hypothyroidism (Chronic) Diverticulosis of colon without diverticulitis (Chronic) Depression (Chronic) Postphlebitic syndrome with inflammation (Chronic) Lumbar disc disease (Chronic) History of Graves' disease (Chronic) Diabetes mellitus (Chronic) Renal insufficiency (Chronic) Presence of IVC filter (Chronic) Obesity (Chronic) Edema leg (Chronic) Leg swelling (Chronic) DVT of lower extremity (deep venous thrombosis) (Chronic) Allergies/Adverse Reactions: Allergies hydrocodone bitartrate [From Lortab] Allergy (Intermediate, Verified 09/06/19 07:31) Other lips swell, ataxia etodolac Allergy (Verified 09/06/19 07:31) Unknown misoprostol Allergy (Verified 09/06/19 07:31) Unknown celecoxib Adverse Reaction (Intermediate, Verified 09/06/19 07:31) Other heart palpitations diclofenac [Diclofenac] Adverse Reaction (Mild, Verified 09/06/19 07:31) Abd cramps/diarrhea ketorolac tromethamine [From Toradol] Adverse Reaction (Mild, Verified 09/06/19 07:31) Other balance issues metoclopramide HCl [From Reglan] Adverse Reaction (Mild, Verified 09/06/19 07:31) Other worsens restless leg atorvastatin [From Lipitor] Adverse Reaction (Verified 09/06/19 07:31) Other FACE SPASMS clindamycin Adverse Reaction (Verified 09/06/19 07:31) Mucosal lesions Home Medications: Ambulatory Orders Medication Instructions Recorded Levothyroxine [Synthroid] 175 mcg PO DAILY 09/01/13 Omeprazole [Prilosec] 20 mg PO DAILY 12/13/16 Cholecalciferol (Vitamin D3) 5,000 unit PO DAILY@1200 01/25/17 [Vitamin D3] [place]-3 Fatty Acids/Fish Oil [Fish 2,000 mg PO LUNCH 03/21/18 Oil 1,000 mg Capsule] Gabapentin 800 mg PO BID 08/01/18 Gabapentin [Neurontin] 1,200 mg PO QHS 08/01/18 Lisinopril [Zestril] 10 mg PO LUNCH 08/01/18 Pramipexole Di-HCl [Pramipexole 1 mg PO LUNCH 08/01/18 Dihydrochloride] Pramipexole Di-HCl [Pramipexole 1.5 tab PO QHS 08/01/18 Dihydrochloride] Venlafaxine HCl [Effexor Xr] 1 tab PO DAILY 08/01/18 Venlafaxine HCl [Venlafaxine HCl 1 tab PO DAILY 08/01/18 ER] Aspirin [Aspir-Low] 81 mg PO LUNCH 05/02/19 Famotidine [Pepcid] 40 mg PO QHS 05/02/19 Ferrous Sulfate 325 mg PO DAILY 08/30/19 Ascorbic Acid [Vitamin C] 500 mg PO LUNCH 11/28/19 Doxycycline 100 mg PO BID 11/28/19 Montelukast [Singulair] 10 mg PO QHS 11/28/19 Pramipexole Di-HCl [Mirapex] 0.5 mg PO DAILY 11/28/19 Voriconazole 200 mg PO BID 11/28/19 Acetaminophen [Tylenol] 1,000 mg PO Q8 tab 12/04/19 Senna/Docusate Sodium [Senokot-S] 2 tab PO BID tab 12/04/19 Maternal Family History: Heart Disease, Hypertension Paternal Family History: Heart Disease, Hypertension Sibling Family History: Cancer, Diabetes, Hypertension, - Smoking Status: Former smoker Physical Exam Vital Signs Temp Pulse Resp BP 97.7 F L 73 16 138/78 H 01/15/20 10:01/15/20 10:01 01/15/20 10:01/15/20 10:52 General: Alert, Oriented x3, Cooperative, No apparent distress HEENT: Atraumatic, TM's Clear Lungs: Clear to auscultation, Normal air movement Cardiovascular: Regular rate, Regular Rhythm Psych/Mental Status: Normal Affect, Appropriate, Alert and oriented to time, place, person, mood and affect
[2020-01-24 15:45] LABS: Bedside Glucose 139 mg/dL (70-110)
[2020-01-24 16:11] VITALS: BP 102/75; BP 122/74; PULSE 75; PULSE 82; RESP 18; TEMP 36.4; TEMP 36.8
[2020-01-25 10:51] LABS: Bedside Glucose 136 mg/dL (70-110)
[2020-01-25 11:21] VITALS: BP 139/72; BP 167/71; PULSE 74; PULSE 87; RESP 18; TEMP 36.4
--- NOTE | 2020-01-25 12:10 | HBO.PN.PCM_ITS ---
History of Present Illness Date of Service: 01/25/20 Presenting Chief Complaint: Nonhealing ulcer right inferior knee s/p polyethylene exchange and gastrocnemius muscle flap reconstruction on 11/29/19. RAJESH CARRENO is a 59 year old currently undergoing hyperbaric oxygen therapy for right inferior knee wound with right medial gastrocnemius muscular rotation flap. Progress: Today's session represents the 2nd session of hyperbaric oxygen therapy, of an expected 20 such treatments. Tolerance of hyperbaric oxygen therapy: Hyperbaric oxygen therapy was administered as per the facility's protocol. Hyperbaric oxygen therapy was administered for 90 minutes at 2 tahir, with no air breaks. Upon emergence from the hyperbaric oxygen chamber the patient had some left ear discomfort. Narrow canals noted prior to dive. Also noted pain at initial dive.The patient's vital signs remained stable. The patient was discharged in good condition. The documented blood glucose levels per nursing documentation. She was referred to an ENT. 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) Nonhealing ulcer right inferior knee by tibial tubercle History of DVT (deep vein thrombosis) (Chronic) Septic arthritis of knee, right (Chronic) Hx of total knee replacement (Chronic) right Restless leg (Chronic) RENNY (obstructive sleep apnea) (Chronic) Hypothyroidism (Chronic) Diverticulosis of colon without diverticulitis (Chronic) Depression (Chronic) Postphlebitic syndrome with inflammation (Chronic) Lumbar disc disease (Chronic) History of Graves' disease (Chronic) Diabetes mellitus (Chronic) Renal insufficiency (Chronic) Presence of IVC filter (Chronic) Obesity (Chronic) Edema leg (Chronic) Leg swelling (Chronic) DVT of lower extremity (deep venous thrombosis) (Chronic) Allergies/Adverse Reactions: Allergies hydrocodone bitartrate [From Lortab] Allergy (Intermediate, Verified 09/06/19 07:31) Other lips swell, ataxia etodolac Allergy (Verified 09/06/19 07:31) Unknown misoprostol Allergy (Verified 09/06/19 07:31) Unknown celecoxib Adverse Reaction (Intermediate, Verified 09/06/19 07:31) Other heart palpitations diclofenac [Diclofenac] Adverse Reaction (Mild, Verified 09/06/19 07:31) Abd cramps/diarrhea ketorolac tromethamine [From Toradol] Adverse Reaction (Mild, Verified 09/06/19 07:31) Other balance issues metoclopramide HCl [From Reglan] Adverse Reaction (Mild, Verified 09/06/19 07:31) Other worsens restless leg atorvastatin [From Lipitor] Adverse Reaction (Verified 09/06/19 07:31) Other FACE SPASMS clindamycin Adverse Reaction (Verified 09/06/19 07:31) Mucosal lesions Home Medications: Ambulatory Orders Medication Instructions Recorded Levothyroxine [Synthroid] 175 mcg PO DAILY 09/01/13 Omeprazole [Prilosec] 20 mg PO DAILY 12/13/16 Cholecalciferol (Vitamin D3) 5,000 unit PO DAILY@1200 01/25/17 [Vitamin D3] [place]-3 Fatty Acids/Fish Oil [Fish 2,000 mg PO LUNCH 03/21/18 Oil 1,000 mg Capsule] Gabapentin 800 mg PO BID 08/01/18 Gabapentin [Neurontin] 1,200 mg PO QHS 08/01/18 Lisinopril [Zestril] 10 mg PO LUNCH 08/01/18 Pramipexole Di-HCl [Pramipexole 1 mg PO LUNCH 08/01/18 Dihydrochloride] Pramipexole Di-HCl [Pramipexole 1.5 tab PO QHS 08/01/18 Dihydrochloride] Venlafaxine HCl [Effexor Xr] 1 tab PO DAILY 08/01/18 Venlafaxine HCl [Venlafaxine HCl 1 tab PO DAILY 08/01/18 ER] Aspirin [Aspir-Low] 81 mg PO LUNCH 05/02/19 Famotidine [Pepcid] 40 mg PO QHS 05/02/19 Ferrous Sulfate 325 mg PO DAILY 08/30/19 Ascorbic Acid [Vitamin C] 500 mg PO LUNCH 11/28/19 Doxycycline 100 mg PO BID 11/28/19 Montelukast [Singulair] 10 mg PO QHS 11/28/19 Pramipexole Di-HCl [Mirapex] 0.5 mg PO DAILY 11/28/19 Voriconazole 200 mg PO BID 11/28/19 Acetaminophen [Tylenol] 1,000 mg PO Q8 tab 12/04/19 Senna/Docusate Sodium [Senokot-S] 2 tab PO BID tab 12/04/19 Maternal Family History: Heart Disease, Hypertension Paternal Family History: Heart Disease, Hypertension Sibling Family History: Cancer, Diabetes, Hypertension, - Smoking Status: Former smoker Physical Exam Vital Signs Temp Pulse Resp BP 97.6 F L 87 18 167/71 H 01/25/20 11:21 01/25/20 11:21 01/25/20 11:21 01/25/20 11:21 General: Alert, Oriented x3, Cooperative, No apparent distress HEENT: Atraumatic, Normocephalic Lungs: Normal air movement Psych/Mental Status: Normal Affect Assessment/Plan The patient tolerated HBO therapy well which will be continued per her medical plan. As above, advised ENT follow up for possible bilateral tubes. Treatment Course Number Number of HBO Treatments 20 Ordered Treatment Course Number 1 Treatment # 2 Chamber # [id number] Chamber Type Monoplace Diabetes - Detail Diabetes Diabetes Type II Diabetes Control Controlled Other - Detail Compromised/Failed Flap/Graft Yes (specify site in comment) Treatment Plan PATRICIA (Atmospheric Absolute) 2.0 Number of Minutes 90 Number of Air Breaks 0 HBO Supervision.
[2020-01-26 07:25] LABS: Bedside Glucose 132 mg/dL (70-110)
[2020-01-26 07:25] LABS: Bedside Glucose 120 mg/dL (70-110)
--- NOTE | 2020-01-26 13:28 | WC ---
Called Dr Molina office to schedule an appt for patient to be evaluated for myringotomy tubes due to right ear pain from HBOT. Left a voicemail message providing patient's name/ and contact info to schedule an appt. Called and spoke to patient informing her of this and to get an appt NERY since HBOT will be on hold until her ears are evaluated. Informed patient to call us Wednesday if she does not hear back from their office. Patient verbalized understanding.
[2020-01-29 09:40] VITALS: BP 171/95; PULSE 80; RESP 16; TEMP 36.1; BMI 45.3
[2020-01-30 08:10] LABS: Bedside Glucose 157 mg/dL (70-110)
[2020-01-30 10:10] LABS: Bedside Glucose 141 mg/dL (70-110)
[2020-01-30 10:29] VITALS: BP 149/75; BP 93/38; PULSE 75; PULSE 91; RESP 16; TEMP 35.7; TEMP 36.6
--- NOTE | 2020-01-30 11:56 | HBO.PN.PCM_ITS ---
History of Present Illness Date of Service: 01/30/20 Presenting Chief Complaint: Nonhealing ulcer right inferior knee s/p polyethylene exchange and gastrocnemius muscle flap reconstruction on 11/29/19 - failing/compromised flap. RAJESH CARRENO is a 59 year old currently undergoing hyperbaric oxygen therapy for right inferior knee wound with right medial gastrocnemius muscular rotation flap. Progress: Today's session represents the 3rd session of hyperbaric oxygen therapy, of an expected 20 such treatments. Tolerance of hyperbaric oxygen therapy: Hyperbaric oxygen therapy was administered as per the facility's protocol. Hyperbaric oxygen therapy was administered for 90 minutes at 2 tahir, with no air breaks. The patient tolerated hyperbaric oxygen therapy well, without complaints or complications. The patient underwent bilateral myringotomy tube placement on January 29, 2020, and had no complaints related to her ears today. Upon emergence from the hyperbaric chamber, the patient's vital signs remained stable. The patient was discharged in good condition. Blood glucose levels before and after hyperbaric oxygen therapy are documented elsewhere. 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) Nonhealing ulcer right inferior knee by tibial tubercle History of DVT (deep vein thrombosis) (Chronic) Septic arthritis of knee, right (Chronic) Hx of total knee replacement (Chronic) right Restless leg (Chronic) RENNY (obstructive sleep apnea) (Chronic) Hypothyroidism (Chronic) Diverticulosis of colon without diverticulitis (Chronic) Depression (Chronic) Postphlebitic syndrome with inflammation (Chronic) Lumbar disc disease (Chronic) History of Graves' disease (Chronic) Diabetes mellitus (Chronic) Renal insufficiency (Chronic) Presence of IVC filter (Chronic) Obesity (Chronic) Edema leg (Chronic) Leg swelling (Chronic) DVT of lower extremity (deep venous thrombosis) (Chronic) Allergies/Adverse Reactions: Allergies hydrocodone bitartrate [From Lortab] Allergy (Intermediate, Verified 09/06/19 07:31) Other lips swell, ataxia etodolac Allergy (Verified 09/06/19 07:31) Unknown misoprostol Allergy (Verified 09/06/19 07:31) Unknown celecoxib Adverse Reaction (Intermediate, Verified 09/06/19 07:31) Other heart palpitations diclofenac [Diclofenac] Adverse Reaction (Mild, Verified 09/06/19 07:31) Abd cramps/diarrhea ketorolac tromethamine [From Toradol] Adverse Reaction (Mild, Verified 09/06/19 07:31) Other balance issues metoclopramide HCl [From Reglan] Adverse Reaction (Mild, Verified 09/06/19 07:31) Other worsens restless leg atorvastatin [From Lipitor] Adverse Reaction (Verified 09/06/19 07:31) Other FACE SPASMS clindamycin Adverse Reaction (Verified 09/06/19 07:31) Mucosal lesions Home Medications: Ambulatory Orders Medication Instructions Recorded Levothyroxine [Synthroid] 175 mcg PO DAILY 09/01/13 Omeprazole [Prilosec] 20 mg PO DAILY 12/13/16 Cholecalciferol (Vitamin D3) 5,000 unit PO DAILY@1200 01/25/17 [Vitamin D3] [place]-3 Fatty Acids/Fish Oil [Fish 2,000 mg PO LUNCH 03/21/18 Oil 1,000 mg Capsule] Gabapentin 800 mg PO BID 08/01/18 Gabapentin [Neurontin] 1,200 mg PO QHS 08/01/18 Lisinopril [Zestril] 10 mg PO LUNCH 08/01/18 Pramipexole Di-HCl [Pramipexole 1 mg PO LUNCH 08/01/18 Dihydrochloride] Pramipexole Di-HCl [Pramipexole 1.5 tab PO QHS 08/01/18 Dihydrochloride] Venlafaxine HCl [Effexor Xr] 1 tab PO DAILY 08/01/18 Venlafaxine HCl [Venlafaxine HCl 1 tab PO DAILY 08/01/18 ER] Aspirin [Aspir-Low] 81 mg PO LUNCH 05/02/19 Famotidine [Pepcid] 40 mg PO QHS 05/02/19 Ferrous Sulfate 325 mg PO DAILY 08/30/19 Ascorbic Acid [Vitamin C] 500 mg PO LUNCH 11/28/19 Doxycycline 100 mg PO BID 11/28/19 Montelukast [Singulair] 10 mg PO QHS 11/28/19 Pramipexole Di-HCl [Mirapex] 0.5 mg PO DAILY 11/28/19 Voriconazole 200 mg PO BID 11/28/19 Acetaminophen [Tylenol] 1,000 mg PO Q8 tab 12/04/19 Senna/Docusate Sodium [Senokot-S] 2 tab PO BID tab 12/04/19 Maternal Family History: Heart Disease, Hypertension Paternal Family History: Heart Disease, Hypertension Sibling Family History: Cancer, Diabetes, Hypertension, - Smoking Status: Former smoker Physical Exam Vital Signs Temp Pulse Resp BP 96.3 F L 91 16 149/75 H 01/30/20 10:29 01/30/20 10:29 01/30/20 10:29 01/30/20 10:29 General: Alert, Oriented x3, Cooperative, No apparent distress, Well developed, Well nourished HEENT: Atraumatic, PERRLA, EOMI, Normocephalic Lungs: Normal air movement Psych/Mental Status: Normal Affect, Appropriate, Alert and oriented to time, place, person, mood and affect Assessment/Plan The patient appears to be tolerating hyperbaric oxygen therapy well at this time, which will be continued as per the patient's medical plan. Treatment Course Number Number of HBO Treatments 20 Ordered Treatment Course Number 1 Treatment # 3 Chamber # 1 Chamber Type Monoplace Diabetes - Detail Diabetes Diabetes Type II Diabetes Control Controlled Other - Detail Compromised/Failed Flap/Graft Yes (specify site in comment) Treatment Plan PATRICIA (Atmospheric Absolute) 2 Number of Minutes 90 Number of Air Breaks 0
--- NOTE | 2020-01-31 14:53 | PN.PCM_ITS ---
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 History of Wound: Surgery 11/29/19 - Irrigation debridement with polyethylene exchange right total knee and excision sinus tract right knee by Dr Barton. 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 Lazaro. Wound care - was using VAC and roger wrap and knee brace; refused further vac use. Operative culture - negative. Currently on Doxycycline and Voriconazole. Prealbumin on 11/30/19 was 24.7. Encourage nutritional supplementation with protein to help the healing process. Today she denies fever. Her appetite is good. She is ambulating ok with the walker. She had some dehiscence of the po sterior leg incision. She has burning nerve pain and tingling in the area of the sural nerve distribution. She is taking Neurontin. Progress of Wound: Healing muscle flap and skin graft with mild compromise of the skin graft after surgery 11/29/19. There is opening in the mid portion of the posterior leg incision, which is improved from last week in size and appearance. The patient denies any fever, chills, nausea, vomiting, or diarrhea. Denies any redness, swelling, or purulent/malodorous drainage from affected area. - Physical Exam Vital Signs Temp Pulse Resp BP 96.3 F L 91 16 149/75 H 01/30/20 10:29 01/30/20 10:29 01/30/20 10:29 01/30/20 10:29 General: Alert, Cooperative, No apparent distress HEENT: Atraumatic, Normocephalic Oral: Moist Mucosa Neck: Supple Lungs: Normal air movement Abdomen: Obese Extremities: No clubbing, No cyanosis, No edema, Capillary Refill Less than 3 Seconds Skin: Ulcer/ Wound - 1. Ulcer of right knee with SQ layer exposed. No tunneling, undermining, or probing to bone. Healing is satisfactory. There is no aileen-ulcer erythema, warmth, or tenderness to palpation. No purulent drainage., - - 2. Right posterior leg with surgical wound dehiscence, subcutaneous layer exposed. There is no tunneling, undermining, or probing to bone. Small amount of slough and devitalized tissue present. There is no periwound erythema, warmth, tenderness to palpation. No purulent/malodorous drainage Wound Measurements and Assessment WC - Nurse 1 - General Ulcer Measurement Start: 01/08/20 08:29 Freq: Status: Active Protocol: Activity Type Activity Date Activity User E-Sign Co-Sign Detail Recorded Client Recorded Date Recorded By Document 01/29/20 09:40 [facility] [id number] 01/29/20 09:49 [facility] 01/29/20 09:40 Wound Center Nurse 1 [Ulcer Assessment] #4 R Post calf -Combined with other wound No -Current Size (cm) - Length 7.2 -Current Size (cm) - Width 1.5 -Current Size (cm) - Depth 0.3 -Total Square Cm 10.80 -Photo Taken No -Epithelialization None Present -Tunneling No -Undermining/Tunneling No -Circular Undermining No -Exudate Amt Medium -Exudate Type Serosanguineous -Wound Margin Distinct, Outline Attached -Granulation Amt Medium (34-66%) -Granulation Quality Red -Slough/Fibrin Yes -Necrosis Amt Medium (34-66%) -Necrotic Tissue Type Adherent Slough -Texture (Aileen-wound Skin Appearance) Assessed, Scarring -Moisture (Aileen-wound Skin Appearance Assessed,Dry/ ) Scaly -Color (Aileen-wound Skin Appearance) Assessed -Temperature (Aileen-wound Skin No Abnormality Appearance) (Pt Warm) -Tenderness on Palpation (Aileen-wound No Skin Appearance) -Ulcer Cleansing Rinsed/ Irrigated with Saline -Foul Odor after Cleansing No -Anesthetic Used 4% Lidocaine Solution 3-right knee graft site -Combined with other wound No -Current Size (cm) - Length 9.3 -Current Size (cm) - Width 4.5 -Current Size (cm) - Depth 0.1 -Total Square Cm 41.85 -Photo Taken No -Epithelialization None Present -Tunneling No -Undermining/Tunneling No -Circular Undermining No -Exudate Amt Medium -Exudate Type Serosanguineous -Wound Margin Distinct, Outline Attached -Granulation Amt Medium (34-66%) -Granulation Quality Red -Slough/Fibrin Yes -Necrosis Amt Medium (34-66%) -Necrotic Tissue Type Adherent Slough -Texture (Aileen-wound Skin Appearance) Assessed, Scarring -Moisture (Aileen-wound Skin Appearance Assessed,Dry/ ) Scaly -Color (Aileen-wound Skin Appearance) Assessed -Temperature (Aileen-wound Skin No Abnormality Appearance) (Pt Warm) -Tenderness on Palpation (Aileen-wound No Skin Appearance) -Ulcer Cleansing Rinsed/ Irrigated with Saline -Foul Odor after Cleansing No -Anesthetic Used 4% Lidocaine Solution [Edema Assessment] -Lower Limb Edema Present Yes -Right Calf (cm) 38.4 -Right Ankle (cm) 25.3 WC - Nurse 2 - General Ulcer CM Notes Start: 01/08/20 08:29 Freq: Status: Active Protocol: Activity Type Activity Date Activity User E-Sign Co-Sign Detail Recorded Client Recorded Date Recorded By Document 01/29/20 10:08 [facility] [id number] 01/29/20 10:23 [facility] 01/29/20 10:08 Wound Center Nurse 2 [Procedure/Treatment] #4 R Post calf -Time 10:20 -Correct Patient Yes -Correct Side, Site, Position Yes -Correct Procedure Yes -Procedure Performed Yes -Type of Procedure Debridement -Clinical Debridement Subcutaneous -Tissue Removed Subcutaneous -Post Debridement (cm) - Length 16.5 -Post Debridement (cm) - Width 1.5 -Post Debridement (cm) - Depth 0.6 -Total Square (Post) (cm) 24.75 -Area of Debridement (cm) - Length 16.5 -Area of Debridement (cm) - Width 1.5 -Total Square (Area) (cm) 24.75 -Tunneling No -Undermining/Tunneling No -Circular Undermining No -Wound/Ulcer Outcome Amputation -Ulcer Cleansing Rinsed/ Irrigated with Saline -Foul Odor after Cleansing No -Bioengineered Tissue No -Bleeding Controlled with Pressure -Offloading No -Treatment Response Procedure Tolerated Well -Debridement - Subq, 1st 20sq cm No 3-right knee graft site -Time 10:09 -Correct Patient Yes -Correct Side, Site, Position Yes -Correct Procedure Yes -Procedure Performed Yes -Type of Procedure Debridement -Clinical Debridement Subcutaneous -Tissue Removed Subcutaneous -Post Debridement (cm) - Length 9.4 -Post Debridement (cm) - Width 4.2 -Post Debridement (cm) - Depth 0.1 -Total Square (Post) (cm) 39.48 -Area of Debridement (cm) - Length 9.4 -Area of Debridement (cm) - Width 4.2 -Total Square (Area) (cm) 39.48 -Tunneling No -Undermining/Tunneling No -Circular Undermining No -Wound/Ulcer Outcome Not Healed -Ulcer Cleansing Rinsed/ Irrigated with Saline -Foul Odor after Cleansing No -Bioengineered Tissue No -Bleeding Controlled with Pressure -Offloading No -Treatment Response Procedure Tolerated Well -Debridement - Subq, 1st 20sq cm Yes -Debridement, SubQ, ea addt'l 20sq cm 3 or part thereof [See Physician Procedure note for Specifics] Pain Scale: 0-10 Numeric [Pain] -Is Patient Pain Free? No WC - Nurse 3 - General Ulcer D/C NN Start: 01/08/20 08:29 Freq: Status: Active Protocol: Activity Type Activity Date Activity User E-Sign Co-Sign Detail Recorded Client Recorded Date Recorded By Document 01/30/20 10:29 [facility] [id number] 01/30/20 10:40 01/30/20 10:29 -Is Patient Pain Free? Yes - Visit Discharge [Visit Discharge Information] -Discharge Condition Stable -Ambulatory Status Ambulatory -Transportation hospital transportation -Medication Reconcilliation completed Yes & provided to patient/care provider -Clinical Summary of Care Provided Yes Psych/Mental Status: Normal Affect, Appropriate Debridement Note Post-Debridement Measurements/Treatment WC - Nurse 2 - General Ulcer CM Notes Start: 01/08/20 08:29 Freq: Status: Active Protocol: Activity Type Activity Date Activity User E-Sign Co-Sign Detail Recorded Client Recorded Date Recorded By Document 01/08/20 09:02 [facility] [id number] 01/08/20 09:24 Document 01/15/20 10:21 [id number] 01/15/20 10:33 Document 01/29/20 10:08 [id number] 01/29/20 10:23 01/08/20 01/15/20 01/29/20 09:02 10:21 10:08 Wound Center Nurse 2 #4 R Post calf -Time 09:19 10:26 10:20 -Correct Patient Yes Yes Yes -Correct Side, Site, Position Yes Yes Yes -Correct Procedure Yes Yes Yes -Procedure Performed Yes Yes Yes -Type of Procedure Debridement Debridement Debridement -Clinical Debridement Subcutaneous Subcutaneous Subcutaneous -Tissue Removed Subcutaneous Subcutaneous Subcutaneous -Post Debridement (cm) - Length 17.1 17.1 16.5 -Post Debridement (cm) - Width 1.9 1.6 1.5 -Post Debridement (cm) - Depth 1.5 0.9 0.6 -Total Square (Post) (cm) 32.49 27.36 24.75 -Area of Debridement (cm) - Length 17.1 17.1 16.5 -Area of Debridement (cm) - Width 1.9 1.6 1.5 -Total Square (Area) (cm) 32.49 27.36 24.75 -Tunneling No No No -Undermining/Tunneling No No No -Circular Undermining No No No -Wound/Ulcer Outcome Not Healed Not Healed Amputation -Ulcer Cleansing Rinsed/ Rinsed/ Rinsed/ Irrigated with Irrigated with Irrigated with Saline Saline Saline -Foul Odor after Cleansing No No No -Bioengineered Tissue No No No -Bleeding Controlled with Pressure Pressure Pressure -Offloading No No No -Treatment Response Procedure Procedure Procedure Tolerated Well Tolerated Well Tolerated Well -Debridement - Subq, 1st 20sq cm No No No 3-right knee graft site -Time 09:06 10:22 10:09 -Correct Patient Yes Yes Yes -Correct Side, Site, Position Yes Yes Yes -Correct Procedure Yes Yes Yes -Procedure Performed Yes Yes Yes -Type of Procedure Debridement Debridement Debridement -Clinical Debridement Subcutaneous Subcutaneous Subcutaneous -Tissue Removed Subcutaneous Subcutaneous Subcutaneous -Post Debridement (cm) - Length 9.6 9.6 9.4 -Post Debridement (cm) - Width 4.8 4.5 4.2 -Post Debridement (cm) - Depth 0.1 0.1 0.1 -Total Square (Post) (cm) 46.08 43.20 39.48 -Area of Debridement (cm) - Length 9.6 9.6 9.4 -Area of Debridement (cm) - Width 4.8 4.5 4.2 -Total Square (Area) (cm) 46.08 43.20 39.48 -Tunneling No No No -Undermining/Tunneling No No No -Circular Undermining No No No -Wound/Ulcer Outcome Not Healed Not Healed Not Healed -Ulcer Cleansing Rinsed/ Rinsed/ Rinsed/ Irrigated with Irrigated with Irrigated with Saline Saline Saline -Foul Odor after Cleansing No No No -Bioengineered Tissue No No No -Bleeding Controlled with Pressure Pressure Pressure -Offloading No No No -Treatment Response Procedure Procedure Procedure Tolerated Well Tolerated Well Tolerated Well -Debridement - Subq, 1st 20sq cm Yes Yes Yes -Debridement, SubQ, ea addt'l 20sq cm 3 3 3 or part thereof Pain Scale: 0-10 Numeric Is Patient Pain Free? Yes Yes No WC - Nurse 3 - General Ulcer D/C NN Start: 01/08/20 08:29 Freq: Status: Active Protocol: Activity Type Activity Date Activity User E-Sign Co-Sign Detail Recorded Client Recorded Date Recorded By Document 01/08/20 09:38 [facility] [id number] 01/08/20 09:39 [facility] Document 01/15/20 10:52 RB [id number] 01/15/20 10:54 RB Document 01/30/20 10:29 [id number] 01/30/20 10:40 01/08/20 01/15/20 01/30/20 09:38 10:52 10:29 Wound Care Nurse 3 #4 R Post calf -Ulcer Cleansing Rinsed/ Rinsed/ Irrigated with Irrigated with Saline Saline -Foul Odor after Cleansing No -Primary Dressing Applied Aquacel AG 4x4 Aquacel AG 4x4 -Primary Dressing Covered/Secured with Dry Gauze & Dry Gauze,Dry Roll Gauze, Gauze & Roll Secured with Gauze,Secured Tape,Other with Tape -Other Covering abd -Aquacel AG 4x4 1 2 3-right knee graft site -Ulcer Cleansing Rinsed/ Rinsed/ Irrigated with Irrigated with Saline Saline -Foul Odor after Cleansing No -Primary Dressing Applied Other -Other Dressing atb oint bacitracin -Primary Dressing Covered/Secured with Dry Gauze & Dry Gauze,Dry Roll Gauze, Gauze & Roll Secured with Gauze,Secured Tape,Other with Tape -Other Covering abd Right -Compression Wrap Roger Wrap -Other roger Treatment Response Procedure Tolerated Well Vital Signs Blood Pressure (90/60-120/80) 138/78 H Blood Pressure Mean (mm Hg) 98 Source Monitor Position Semi-Fowlers Blood Pressure Location Left Arm Pain Scale: 0-10 Numeric Is Patient Pain Free? Yes Yes Yes WC - Visit Discharge Discharge Condition Stable Stable Stable Ambulatory Status Ambulatory, Ambulatory Ambulatory Walker Transportation Private Auto Private Auto hospital transportation Medication Reconcilliation completed & No Yes provided to patient/care provider Clinical Summary of Care Provided Yes Yes Facility Type Home Health Wound debrided: Right inferior knee muscle flap and skin graft Laterality: Right Type of Debridement: Excisional debridement Anesthesia Used: 4% Lidocaine Solution Depth: in the subcutaneous layer Percentage of wound debrided: 100 Instrument Used: 5mm curette Tissue Removed: Slough and devitalized tissue Severity: Fat Layer Exposed Amount of bleeding with debridement: Mild Bleeding Controlled with: Pressure Patient tolerated procedure well Assessment/Plan Assessment: 1. Nonhealing ulcer right inferior knee by tibial tubercle. 2. History of revision replacement right knee. 3. History of right TKA infection. 4. Former smoker. 5. Sural nerve injury right posterior leg. 6. 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 7. Nonhealing surgical wound right posterior leg. 8. Mild skin graft compromise right inferior knee. Plan: Muscle flap is healing satisfactory. Skin graft shows good adherence and vascular ingrowth. Mild scattered areas of skin graft compromise noted. Can benefit from HBO therapy to improve the salvage of the skin graft. She will need a CXR prior to the treatments. VAC was discontinued. She will continue bacitracin ointment daily to the skin graft followed by gauze dressing. Continue ROGER wrap for compression. Per Dr. Barton, she no longer needs to wear the knee brace. Prealbumin from 11/30/19 was 24.7. Encourage nutritional supplementation with protein to help the healing process. For the small wound opening on the mid portion of the posterior leg incision, continue with Dakins solution, and dress daily with Aquacel Ag dressing. Follow-up in 2 weeks. Follow-up sooner should new or concerning symptoms arise. Note: [employer]form speech recognition aircraft log clerk software was used to create portions of this document. Sound-alike and misspelled words, as well as other aircraft log clerk errors may be contained in the documentation. [id number]: [id number] Global Visit
[2020-02-02 08:00] LABS: Bedside Glucose 135 mg/dL (70-110)
[2020-02-02 10:16] LABS: Bedside Glucose 131 mg/dL (70-110)
[2020-02-02 10:51] VITALS: BP 114/46; BP 132/71; PULSE 80; PULSE 90; RESP 16; RESP 20; TEMP 36.3; TEMP 36.4
[2020-02-02 12:30] LABS: Bedside Glucose 90 mg/dL (70-110)
--- NOTE | 2020-02-02 14:05 | HBO.PN.PCM_ITS ---
History of Present Illness Date of Service: 02/02/20 Presenting Chief Complaint: Nonhealing ulcer right inferior knee s/p polyethylene exchange and gastrocnemius muscle flap reconstruction on 11/29/19 - failing/compromised flap. RAJESH CARRENO is a 59 year old currently undergoing hyperbaric oxygen therapy for right inferior knee wound with right medial gastrocnemius muscular rotation flap. Progress: Today's session represents the 4th session of hyperbaric oxygen therapy, of an expected 20 such treatments. Tolerance of hyperbaric oxygen therapy: Hyperbaric oxygen therapy was administered as per the facility's protocol. Hyperbaric oxygen therapy was administered for 90 minutes at 2 tahir, with no air breaks. The patient tolerated hyperbaric oxygen therapy well, without complications. The patient underwent bilateral myringotomy tube placement on January 29, 2020, and had some pain to her right ear upon decompression today. She has seen Dr. Molina in follow up and is using steroid ear drops. She had some serosanguinous fluid drain from her ear post-treatment today but upon inspection there was no evidence of barotrauma and it may be residual fluid present behind her tympanic membrane or in her myringotomy tube that is expressed. Upon emergence from the hyperbaric chamber, the patient's vital signs remained stable. The patient was discharged in good condition. Blood glucose levels before and after hyperbaric oxygen therapy are documented elsewhere. 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) Nonhealing ulcer right inferior knee by tibial tubercle History of DVT (deep vein thrombosis) (Chronic) Septic arthritis of knee, right (Chronic) Hx of total knee replacement (Chronic) right Restless leg (Chronic) RENNY (obstructive sleep apnea) (Chronic) Hypothyroidism (Chronic) Diverticulosis of colon without diverticulitis (Chronic) Depression (Chronic) Postphlebitic syndrome with inflammation (Chronic) Lumbar disc disease (Chronic) History of Graves' disease (Chronic) Diabetes mellitus (Chronic) Renal insufficiency (Chronic) Presence of IVC filter (Chronic) Obesity (Chronic) Edema leg (Chronic) Leg swelling (Chronic) DVT of lower extremity (deep venous thrombosis) (Chronic) Allergies/Adverse Reactions: Allergies hydrocodone bitartrate [From Lortab] Allergy (Intermediate, Verified 09/06/19 07:31) Other lips swell, ataxia etodolac Allergy (Verified 09/06/19 07:31) Unknown misoprostol Allergy (Verified 09/06/19 07:31) Unknown celecoxib Adverse Reaction (Intermediate, Verified 09/06/19 07:31) Other heart palpitations diclofenac [Diclofenac] Adverse Reaction (Mild, Verified 09/06/19 07:31) Abd cramps/diarrhea ketorolac tromethamine [From Toradol] Adverse Reaction (Mild, Verified 09/06/19 07:31) Other balance issues metoclopramide HCl [From Reglan] Adverse Reaction (Mild, Verified 09/06/19 07:31) Other worsens restless leg atorvastatin [From Lipitor] Adverse Reaction (Verified 09/06/19 07:31) Other FACE SPASMS clindamycin Adverse Reaction (Verified 09/06/19 07:31) Mucosal lesions Home Medications: Ambulatory Orders Medication Instructions Recorded Levothyroxine [Synthroid] 175 mcg PO DAILY 09/01/13 Omeprazole [Prilosec] 20 mg PO DAILY 12/13/16 Cholecalciferol (Vitamin D3) 5,000 unit PO DAILY@1200 01/25/17 [Vitamin D3] [place]-3 Fatty Acids/Fish Oil [Fish 2,000 mg PO LUNCH 03/21/18 Oil 1,000 mg Capsule] Gabapentin 800 mg PO BID 08/01/18 Gabapentin [Neurontin] 1,200 mg PO QHS 08/01/18 Lisinopril [Zestril] 10 mg PO LUNCH 08/01/18 Pramipexole Di-HCl [Pramipexole 1 mg PO LUNCH 08/01/18 Dihydrochloride] Pramipexole Di-HCl [Pramipexole 1.5 tab PO QHS 08/01/18 Dihydrochloride] Venlafaxine HCl [Effexor Xr] 1 tab PO DAILY 08/01/18 Venlafaxine HCl [Venlafaxine HCl 1 tab PO DAILY 08/01/18 ER] Aspirin [Aspir-Low] 81 mg PO LUNCH 05/02/19 Famotidine [Pepcid] 40 mg PO QHS 05/02/19 Ferrous Sulfate 325 mg PO DAILY 08/30/19 Ascorbic Acid [Vitamin C] 500 mg PO LUNCH 11/28/19 Doxycycline 100 mg PO BID 11/28/19 Montelukast [Singulair] 10 mg PO QHS 11/28/19 Pramipexole Di-HCl [Mirapex] 0.5 mg PO DAILY 11/28/19 Voriconazole 200 mg PO BID 11/28/19 Acetaminophen [Tylenol] 1,000 mg PO Q8 tab 12/04/19 Senna/Docusate Sodium [Senokot-S] 2 tab PO BID tab 12/04/19 Maternal Family History: Heart Disease, Hypertension Paternal Family History: Heart Disease, Hypertension Sibling Family History: Cancer, Diabetes, Hypertension, - Smoking Status: Former smoker Physical Exam Vital Signs Temp Pulse Resp BP 97.4 F L 90 16 132/71 H 02/02/20 10:51 02/02/20 10:51 02/02/20 10:51 02/02/20 10:51 General: Alert, Oriented x3, Cooperative, No apparent distress HEENT: TM's Clear, - - myringotomy tubes patent and present in good position b/l, right EAC with small amount of serous but lightly blood tinged yellow drainage present Psych/Mental Status: Normal Affect, Appropriate Assessment/Plan Active Problems Nonhealing surgical wound (Chronic) Infection and inflammatory reaction due to internal right knee prosthesis, sequela (Chronic) Nonhealing ulcer of right lower extremity with fat layer exposed (Chronic) Nonhealing ulcer right inferior knee by tibial tubercle The patient appears to be tolerating hyperbaric oxygen therapy well at this time, which will be continued as per the patient's medical plan. Will continue to monitor her closely for any continued drainage or discomfort of her right ear. Treatment Course Number Number of HBO Treatments 20 Ordered Treatment Course Number 1 Treatment # 4 Chamber # 1 Chamber Type Monoplace Diabetes - Detail Diabetes Diabetes Type II Diabetes Control Controlled Other - Detail Compromised/Failed Flap/Graft Yes (specify site in comment) Treatment Plan PATRICIA (Atmospheric Absolute) 2 Number of Minutes 90 Number of Air Breaks 0
== END 2020-02-03 23:59 ==
LOC: WC 08:00
PROVIDERS: PCP Family Medicine; Referring Provider Surgery; Visit Provider Surgery
DX: L97.812 Non-pressure chronic ulcer of other part of right lower leg with fat layer exposed (principal); T84.53XA Infection and inflammatory reaction due to internal right knee prosthesis, initial encounter; Z96.651 Presence of right artificial knee joint; Y79.2 Prosthetic and other implants, materials and accessory orthopedic devices associated with adverse incidents; Z86.718 Personal history of other venous thrombosis and embolism; E66.9 Obesity, unspecified; R60.0 Localized edema; E11.9 Type 2 diabetes mellitus without complications; G47.33 Obstructive sleep apnea (adult) (pediatric); R20.2 Paresthesia of skin; T81.31XA Disruption of external operation (surgical) wound, not elsewhere classified, initial encounter; Z87.891 Personal history of nicotine dependence; I87.029 Postthrombotic syndrome with inflammation of unspecified lower extremity; M79.89 Other specified soft tissue disorders; T86.828 Other complications of skin graft (allograft) (autograft)
CPT/HCPCS: 11042; 11045; 82962; 99183; G0277

== ENCOUNTER 2020-03-04 08:00 | Outpatient (RCR) | payer BC, SELFPAY ==
[2020-01-29 09:40] VITALS: BMI 45.3
[2020-02-04 00:24] VITALS: BP 132/71; PULSE 90; RESP 16; TEMP 36.3
--- NOTE | 2020-02-05 08:17 | PCM.HBO.PN ---
History of Present Illness Date of Service: 02/05/20 Presenting Chief Complaint: Nonhealing ulcer right inferior knee s/p polyethylene exchange and gastrocnemius muscle flap reconstruction on 11/29/19 - failing/compromised flap. RAJESH CARRENO is a 59 year old currently undergoing hyperbaric oxygen therapy for right inferior knee wound with right medial gastrocnemius muscular rotation flap. Progress: Today's session represents the 6th session of hyperbaric oxygen therapy, of an expected 20 such treatments. Tolerance of hyperbaric oxygen therapy: Hyperbaric oxygen therapy was administered as per the facility's protocol. Hyperbaric oxygen therapy was administered for 90 minutes at 2 tahir, with no air breaks. The patient tolerated hyperbaric oxygen therapy well, without complaints or complications. The patient underwent bilateral myringotomy tube placement on January 29, 2020, and had no complaints related to her ears today. Upon emergence from the hyperbaric chamber, the patient's vital signs remained stable. Small amount of serosanguineous drainage noted from the right ear canal. No complaints of pain or tenderness. The patient was discharged in good condition. Blood glucose levels before and after hyperbaric oxygen therapy are documented elsewhere. 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) Nonhealing ulcer right inferior knee by tibial tubercle History of DVT (deep vein thrombosis) (Chronic) Septic arthritis of knee, right (Chronic) Hx of total knee replacement (Chronic) right Restless leg (Chronic) RENNY (obstructive sleep apnea) (Chronic) Hypothyroidism (Chronic) Diverticulosis of colon without diverticulitis (Chronic) Depression (Chronic) Postphlebitic syndrome with inflammation (Chronic) Lumbar disc disease (Chronic) History of Graves' disease (Chronic) Diabetes mellitus (Chronic) Renal insufficiency (Chronic) Presence of IVC filter (Chronic) Obesity (Chronic) Edema leg (Chronic) Leg swelling (Chronic) DVT of lower extremity (deep venous thrombosis) (Chronic) Allergies/Adverse Reactions: Allergies hydrocodone bitartrate [From Lortab] Allergy (Intermediate, Verified 09/06/19 07:31) Other lips swell, ataxia etodolac Allergy (Verified 09/06/19 07:31) Unknown misoprostol Allergy (Verified 09/06/19 07:31) Unknown celecoxib Adverse Reaction (Intermediate, Verified 09/06/19 07:31) Other heart palpitations diclofenac [Diclofenac] Adverse Reaction (Mild, Verified 09/06/19 07:31) Abd cramps/diarrhea ketorolac tromethamine [From Toradol] Adverse Reaction (Mild, Verified 09/06/19 07:31) Other balance issues metoclopramide HCl [From Reglan] Adverse Reaction (Mild, Verified 09/06/19 07:31) Other worsens restless leg atorvastatin [From Lipitor] Adverse Reaction (Verified 09/06/19 07:31) Other FACE SPASMS clindamycin Adverse Reaction (Verified 09/06/19 07:31) Mucosal lesions Home Medications: Ambulatory Orders Medication Instructions Recorded Levothyroxine [Synthroid] 175 mcg PO DAILY 09/01/13 Omeprazole [Prilosec] 20 mg PO DAILY 12/13/16 Cholecalciferol (Vitamin D3) 5,000 unit PO DAILY@1200 01/25/17 [Vitamin D3] [place]-3 Fatty Acids/Fish Oil [Fish 2,000 mg PO LUNCH 03/21/18 Oil 1,000 mg Capsule] Gabapentin 800 mg PO BID 08/01/18 Gabapentin [Neurontin] 1,200 mg PO QHS 08/01/18 Lisinopril [Zestril] 10 mg PO LUNCH 08/01/18 Pramipexole Di-HCl [Pramipexole 1 mg PO LUNCH 08/01/18 Dihydrochloride] Pramipexole Di-HCl [Pramipexole 1.5 tab PO QHS 08/01/18 Dihydrochloride] Venlafaxine HCl [Effexor Xr] 1 tab PO DAILY 08/01/18 Venlafaxine HCl [Venlafaxine HCl 1 tab PO DAILY 08/01/18 ER] Aspirin [Aspir-Low] 81 mg PO LUNCH 05/02/19 Famotidine [Pepcid] 40 mg PO QHS 05/02/19 Ferrous Sulfate 325 mg PO DAILY 08/30/19 Ascorbic Acid [Vitamin C] 500 mg PO LUNCH 11/28/19 Doxycycline 100 mg PO BID 11/28/19 Montelukast [Singulair] 10 mg PO QHS 11/28/19 Pramipexole Di-HCl [Mirapex] 0.5 mg PO DAILY 11/28/19 Voriconazole 200 mg PO BID 11/28/19 Acetaminophen [Tylenol] 1,000 mg PO Q8 tab 12/04/19 Senna/Docusate Sodium [Senokot-S] 2 tab PO BID tab 12/04/19 Maternal Family History: Heart Disease, Hypertension Paternal Family History: Heart Disease, Hypertension Sibling Family History: Cancer, Diabetes, Hypertension, - Smoking Status: Former smoker Physical Exam Vital Signs Temp Pulse Resp BP 97.4 F L 90 16 132/71 H 02/04/20 00:24 02/04/20 00:24 02/04/20 00:24 02/04/20 00:24 General: Alert, Oriented x3, Cooperative, No apparent distress HEENT: Atraumatic, TM's Clear Lungs: Clear to auscultation, Normal air movement Cardiovascular: Regular rate, Regular Rhythm Psych/Mental Status: Normal Affect, Appropriate, Alert and oriented to time, place, person, mood and affect Assessment/Plan Treatment Course Number Treatment Course Number 1 Treatment # 6 Diabetes - Detail Diabetes Diabetes Type II Other - Detail Compromised/Failed Flap/Graft Yes (specify site in comment)
[2020-02-05 10:16] LABS: Bedside Glucose 142 mg/dL (70-110)
[2020-02-05 10:21] VITALS: BP 110/56; PULSE 79; RESP 16; TEMP 36.5; BMI 45.3
[2020-02-05 10:25] VITALS: BP 110/56; BP 129/65; PULSE 79; PULSE 80; RESP 16; TEMP 36.4; TEMP 36.5
[2020-02-05 11:16] VITALS: BP 147/96; PULSE 75; RESP 16
--- NOTE | 2020-02-05 12:41 | PN.PCM_ITS ---
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 Status: Chronic Code(s): L97.912 - Non-pressure chronic ulcer of unspecified part of right lower leg with fat layer exposed Comment: Nonhealing ulcer right inferior knee by tibial tubercle (3) Diabetes mellitus with skin ulcer Status: Chronic Code(s): E11.622 - Type 2 diabetes mellitus with other skin ulcer; L98.499 - Non-pressure chronic ulcer of skin of other sites with unspecified severity (4) Diabetes mellitus Status: Chronic Qualifiers: Diabetes mellitus type: type 2 Code(s): E11.9 - Type 2 diabetes mellitus without complications (5) History of right knee joint replacement Status: Chronic Code(s): Z96.651 - Presence of right artificial knee joint (6) Edema leg Status: Chronic Code(s): R60.0 - Localized edema Type of Wound Date of Service: 02/06/20 Chief Complaint: Nonhealing ulcer right inferior knee s/p polyethylene exchange and gastrocnemius muscle flap reconstruction on 11/29/19 - failing/compromised flap. History of Wound: Surgery 11/29/19 - Irrigation debridement with polyethylene exchange right total knee and excision sinus tract right knee by Dr Barton. Reconstruction right inferior knee wound with right medial gastrocnemius muscular rotation flap and STSG reconstruction from right lateral abdominal wall (45 cm2) and 13 cm right superior knee wound complex secondary wound closure and epineural repair sural nerve injury right posterior leg. Wound care - Was using silver but it was sticking too much. Will start moistened Tayla covered by adaptic daily. Operative cultures negative. Currently on Doxycycline and Voriconazole from [place]. Prealbumin on 11/30/19 was 24.7. Encourage nutritional supplementation with protein to help the healing process. Today she denies any fever, chills, nausea, vomiting, or diarrhea. Denies any redness, swelling, or purulent/malodorous drainage from affected area. Her appetite is good. She is ambulating ok with the walker. Progress of Wound: Patient tolerating HBOT well for her compromised skin graft. Skin graft is stable. She has an opened area on the posterior leg/calf area. - Physical Exam Vital Signs Temp Pulse Resp BP 97.6 F L 75 16 147/96 H 02/05/20 10:25 02/05/20 11:16 02/05/20 11:16 02/05/20 11:16 General: Alert, Oriented x3, Cooperative HEENT: Atraumatic Oral: Moist Mucosa Lungs: Normal air movement Cardiovascular: Regular rate Extremities: Capillary Refill Less than 3 Seconds, Peripheral Pulses Normal Skin: Ulcer/ Wound - Right knee ulcer is very tender to touch, but is pink and beefy red. Right posterior leg/calf ucler. Wound Measurements and Assessment WC - Nurse 1 - General Ulcer Measurement Start: 02/05/20 10:21 Freq: Status: Active Protocol: Activity Type Activity Date Activity User E-Sign Co-Sign Detail Recorded Client Recorded Date Recorded By Document 02/05/20 10:21 [id number] 02/05/20 10:26 ALETA 02/05/20 10:21 Wound Center Nurse 1 [Ulcer Assessment] #4 R Post calf -Combined with other wound No -Current Size (cm) - Length 5.3 -Current Size (cm) - Width 0.9 -Current Size (cm) - Depth 0.3 -Total Square Cm 4.77 -Photo Taken No -Epithelialization Small 1-33% -Tunneling No -Undermining/Tunneling No -Circular Undermining No -Exudate Amt Small -Exudate Type Serosanguineous -Wound Margin Distinct, Outline Attached -Granulation Amt Medium (34-66%) -Granulation Quality Red -Slough/Fibrin Yes -Necrosis Amt Medium (34-66%) -Necrotic Tissue Type Adherent Slough -Texture (Aileen-wound Skin Appearance) Assessed, Scarring -Moisture (Aileen-wound Skin Appearance Assessed,Dry/ ) Scaly -Color (Aileen-wound Skin Appearance) Assessed -Temperature (Aileen-wound Skin No Abnormality Appearance) (Pt Warm) -Tenderness on Palpation (Aileen-wound No Skin Appearance) -Ulcer Cleansing Rinsed/ Irrigated with Saline -Foul Odor after Cleansing No -Anesthetic Used 4% Lidocaine Solution 3-right knee graft site -Combined with other wound No -Current Size (cm) - Length 9.4 -Current Size (cm) - Width 4.1 -Current Size (cm) - Depth 0.1 -Total Square Cm 38.54 -Photo Taken No -Epithelialization Small 1-33% -Tunneling No -Undermining/Tunneling No -Circular Undermining No -Exudate Amt Small -Exudate Type Serosanguineous -Wound Margin Distinct, Outline Attached -Granulation Amt Small (1-33%) -Granulation Quality [place] -Slough/Fibrin Yes -Necrosis Amt Medium (34-66%) -Necrotic Tissue Type Adherent Slough -Texture (Aileen-wound Skin Appearance) Assessed, Scarring -Moisture (Aileen-wound Skin Appearance Assessed ) -Color (Aileen-wound Skin Appearance) Assessed -Temperature (Aileen-wound Skin No Abnormality Appearance) (Pt Warm) -Tenderness on Palpation (Aileen-wound No Skin Appearance) -Foul Odor after Cleansing No -Anesthetic Used 4% Lidocaine Solution WC - Nurse 2 - General Ulcer CM Notes Start: 02/05/20 10:21 Freq: Status: Active Protocol: Activity Type Activity Date Activity User E-Sign Co-Sign Detail Recorded Client Recorded Date Recorded By Document 02/05/20 10:49 ALETA [id number] 02/05/20 11:01 ALETA 02/05/20 10:49 Wound Center Nurse 2 [Procedure/Treatment] #4 R Post calf -Time 10:53 -Correct Patient Yes -Correct Side, Site, Position Yes -Correct Procedure Yes -Procedure Performed Yes -Type of Procedure Debridement -Clinical Debridement Subcutaneous -Tissue Removed Subcutaneous -Post Debridement (cm) - Length 3.3 -Post Debridement (cm) - Width 1.0 -Post Debridement (cm) - Depth 0.5 -Total Square (Post) (cm) 3.30 -Area of Debridement (cm) - Length 3.3 -Area of Debridement (cm) - Width 1.0 -Total Square (Area) (cm) 3.30 -Tunneling No -Undermining/Tunneling No -Circular Undermining No -Wound/Ulcer Outcome Not Healed -Ulcer Cleansing Rinsed/ Irrigated with Saline -Foul Odor after Cleansing No -Bioengineered Tissue No -Bleeding Controlled with Pressure -Offloading No -Treatment Response Procedure Tolerated Well -Debridement - Subq, 1st 20sq cm No 3-right knee graft site -Time 10:50 -Correct Patient Yes -Correct Side, Site, Position Yes -Correct Procedure Yes -Procedure Performed Yes -Type of Procedure Debridement -Clinical Debridement Subcutaneous -Tissue Removed Subcutaneous -Post Debridement (cm) - Length 9.3 -Post Debridement (cm) - Width 4.5 -Post Debridement (cm) - Depth 0.2 -Total Square (Post) (cm) 41.85 -Area of Debridement (cm) - Length 9.3 -Area of Debridement (cm) - Width 4.5 -Total Square (Area) (cm) 41.85 -Tunneling No -Undermining/Tunneling No -Circular Undermining No -Wound/Ulcer Outcome Not Healed -Ulcer Cleansing Rinsed/ Irrigated with Saline -Foul Odor after Cleansing No -Bioengineered Tissue No -Bleeding Controlled with Pressure -Offloading No -Treatment Response Procedure Tolerated Well -Debridement - Subq, 1st 20sq cm Yes -Debridement, SubQ, ea addt'l 20sq cm 2 or part thereof [See Physician Procedure note for Specifics] Pain Scale: 0-10 Numeric [Pain] -Is Patient Pain Free? Yes WC - Nurse 3 - General Ulcer D/C NN Start: 02/05/20 10:21 Freq: Status: Active Protocol: Activity Type Activity Date Activity User E-Sign Co-Sign Detail Recorded Client Recorded Date Recorded By Document 02/05/20 11:16 [facility] [id number] 02/05/20 11:18 [facility] 02/05/20 11:16 Wound Care Nurse 3 [Wound Dressing] #4 R Post calf -Ulcer Cleansing Rinsed/ Irrigated with Saline -Foul Odor after Cleansing No -Primary Dressing Applied NonAdherent Contact Layer, Promogran Tayla Matter -Primary Dressing Covered/Secured Dry Gauze & with Roll Gauze, Secured with Tape,Other -Other Covering abd -Promogran Tayla Matter 2 3-right knee graft site -Ulcer Cleansing Rinsed/ Irrigated with Saline -Foul Odor after Cleansing No -Primary Dressing Applied NonAdherent Contact Layer, Promogran Tayla Matter -Primary Dressing Covered/Secured Dry Gauze & with Roll Gauze, Secured with Tape,Other -Other Covering abd -Promogran Tayla Matter 0 [Post Procedure Tolerated] -Treatment Response Procedure Tolerated Well Vital Signs [Pulse] -Pulse Rate (60-100) 75 -Pulse Location Monitor [Respirations] -Respiratory Rate (12-18) 16 -Respiratory rate source Observation -Oxygen Delivery Method Room Air [Blood Pressure] -Blood Pressure (90/60-120/80) 147/96 H -Blood Pressure Mean (mm Hg) 113 -Source Monitor -Position Sitting Pain Scale: 0-10 Numeric [Pain] -Is Patient Pain Free? Yes WC - Visit Discharge [Visit Discharge Information] -Discharge Condition Stable -Ambulatory Status Ambulatory -Transportation Private Auto Musculoskeletal: No Tenderness to Palpation of Joints or Extremities Neurological: Cranial nerves II-XII grossly intact Psych/Mental Status: Normal Affect, Appropriate Debridement Note Post-Debridement Measurements/Treatment WC - Nurse 2 - General Ulcer CM Notes Start: 02/05/20 10:21 Freq: Status: Active Protocol: Activity Type Activity Date Activity User E-Sign Co-Sign Detail Recorded Client Recorded Date Recorded By Document 02/05/20 10:49 ALETA [id number] 02/05/20 11:01 ALETA 02/05/20 10:49 Wound Center Nurse 2 #4 R Post calf -Time 10:53 -Correct Patient Yes -Correct Side, Site, Position Yes -Correct Procedure Yes -Procedure Performed Yes -Type of Procedure Debridement -Clinical Debridement Subcutaneous -Tissue Removed Subcutaneous -Post Debridement (cm) - Length 3.3 -Post Debridement (cm) - Width 1.0 -Post Debridement (cm) - Depth 0.5 -Total Square (Post) (cm) 3.30 -Area of Debridement (cm) - Length 3.3 -Area of Debridement (cm) - Width 1.0 -Total Square (Area) (cm) 3.30 -Tunneling No -Undermining/Tunneling No -Circular Undermining No -Wound/Ulcer Outcome Not Healed -Ulcer Cleansing Rinsed/ Irrigated with Saline -Foul Odor after Cleansing No -Bioengineered Tissue No -Bleeding Controlled with Pressure -Offloading No -Treatment Response Procedure Tolerated Well -Debridement - Subq, 1st 20sq cm No 3-right knee graft site -Time 10:50 -Correct Patient Yes -Correct Side, Site, Position Yes -Correct Procedure Yes -Procedure Performed Yes -Type of Procedure Debridement -Clinical Debridement Subcutaneous -Tissue Removed Subcutaneous -Post Debridement (cm) - Length 9.3 -Post Debridement (cm) - Width 4.5 -Post Debridement (cm) - Depth 0.2 -Total Square (Post) (cm) 41.85 -Area of Debridement (cm) - Length 9.3 -Area of Debridement (cm) - Width 4.5 -Total Square (Area) (cm) 41.85 -Tunneling No -Undermining/Tunneling No -Circular Undermining No -Wound/Ulcer Outcome Not Healed -Ulcer Cleansing Rinsed/ Irrigated with Saline -Foul Odor after Cleansing No -Bioengineered Tissue No -Bleeding Controlled with Pressure -Offloading No -Treatment Response Procedure Tolerated Well -Debridement - Subq, 1st 20sq cm Yes -Debridement, SubQ, ea addt'l 20sq cm 2 or part thereof Pain Scale: 0-10 Numeric Is Patient Pain Free? Yes WC - Nurse 3 - General Ulcer D/C NN Start: 02/05/20 10:21 Freq: Status: Active Protocol: Activity Type Activity Date Activity User E-Sign Co-Sign Detail Recorded Client Recorded Date Recorded By Document 02/05/20 11:16 [facility] [id number] 02/05/20 11:18 [facility] 02/05/20 11:16 Wound Care Nurse 3 #4 R Post calf -Ulcer Cleansing Rinsed/ Irrigated with Saline -Foul Odor after Cleansing No -Primary Dressing Applied NonAdherent Contact Layer, Promogran Tayla Matter -Primary Dressing Covered/Secured with Dry Gauze & Roll Gauze, Secured with Tape,Other -Other Covering abd -Promogran Tayla Matter 2 3-right knee graft site -Ulcer Cleansing Rinsed/ Irrigated with Saline -Foul Odor after Cleansing No -Primary Dressing Applied NonAdherent Contact Layer, Promogran Tayla Matter -Primary Dressing Covered/Secured with Dry Gauze & Roll Gauze, Secured with Tape,Other -Other Covering abd -Promogran Tayla Matter 0 Treatment Response Procedure Tolerated Well Vital Signs Pulse Rate (60-100) 75 Pulse Location Monitor Respiratory Rate (12-18) 16 Respiratory rate source Observation Oxygen Delivery Method Room Air Blood Pressure (90/60-120/80) 147/96 H Blood Pressure Mean (mm Hg) 113 Source Monitor Position Sitting Pain Scale: 0-10 Numeric Is Patient Pain Free? Yes WC - Visit Discharge Discharge Condition Stable Ambulatory Status Ambulatory Transportation Private Auto Wound debrided: anterior knee/proximal leg skin graft/ulcer Laterality: Right Type of Debridement: Excisional debridement Anesthesia Used: 5% Lidocaine Gel Depth: Down to and including healthy tissue, in the subcutaneous layer Percentage of wound debrided: 100 Instrument Used: 7mm curette Tissue Removed: Subcutaneous tissue and slough Severity: Fat Layer Exposed Amount of bleeding with debridement: Mild Bleeding Controlled with: Pressure, Compression and gauze Patient tolerated procedure well - Additional Wound Wound debrided: posterior leg/calf ulcer Laterality: Right Type of Debridement: Excisional debridement Anesthesia Used: 5% Lidocaine Gel Depth: Down to and including healthy tissue, in the subcutaneous layer Percentage of wound debrided: 100 Instrument Used: 5mm curette Tissue Removed: Subcutaneous tissue and slough Severity: Fat Layer Exposed Amount of bleeding with debridement: Mild Bleeding Controlled with: Pressure Patient tolerated procedure: Patient tolerated procedure well Assessment/Plan Active Problems Chronic ulcer of right leg (Chronic) History of right knee joint replacement (Chronic) Nonhealing ulcer of right lower extremity with fat layer exposed (Chronic) Nonhealing ulcer right inferior knee by tibial tubercle Diabetes mellitus (Chronic) Edema leg (Chronic) Assessment: 1. Nonhealing ulcer right inferior knee by tibial tubercle. 2. History of revision replacement right knee. 3. History of right TKA infection. 4. Former smoker. 5. Sural nerve injury right posterior leg. 6. 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 7. Nonhealing surgical wound right posterior leg. 8. Mild skin graft compromise right inferior knee. Plan: Muscle flap is healing satisfactory. Skin graft shows scattered areas of skin graft compromise. She is tolerating HBO treatments for compromised graft. She also has an open area on her right posterior calf/leg where the incision . Wound care - Will stop the Aquacel-Ag dressing because it is causing her to bleed and is painful with the dressing changes. Will start moistened Tayla covered by Adaptic daily to both the anterior and posterior leg ulcer. Patient would benefit from an advanced wound care product to help the the breakdown on her anterior leg to heal faster. We will apply for Epifix. Continue FLOYD wrap for compression. Per Dr. Barton, she no longer needs to wear the knee brace. Currently on Doxycycline and Voriconazole from [place]. Prealbumin from 11/30/19 was 24.7. Encourage nutritional supplementation with protein to help the healing process. Follow-up in 1 week. [id number]: [id number] [facility] Visit
[2020-02-05 13:31] LABS: Bedside Glucose 146 mg/dL (70-110)
[2020-02-06 08:00] LABS: Bedside Glucose 158 mg/dL (70-110)
[2020-02-06 10:05] LABS: Bedside Glucose 160 mg/dL (70-110)
[2020-02-06 10:19] VITALS: BP 112/65; BP 128/65; PULSE 82; PULSE 84; RESP 16; TEMP 35.6; TEMP 36.5
--- NOTE | 2020-02-06 14:30 | PCM.HBO.PN ---
History of Present Illness Date of Service: 02/06/20 Presenting Chief Complaint: Nonhealing ulcer right inferior knee s/p polyethylene exchange and gastrocnemius muscle flap reconstruction on 11/29/19 - failing/compromised flap. RAJESH CARRENO is a 59 year old currently undergoing hyperbaric oxygen therapy for a failing/compromised right medial gastrocnemius muscular rotation flap. Progress: Today's session represents the 6th session of hyperbaric oxygen therapy, of an expected 20 such treatments. Tolerance of hyperbaric oxygen therapy: Hyperbaric oxygen therapy was administered as per the facility's protocol. Hyperbaric oxygen therapy was administered for 90 minutes at 2 tahir, with no air breaks. The patient tolerated hyperbaric oxygen therapy well, without complaints or complications. The patient underwent bilateral myringotomy tube placement on January 29, 2020, and had no complaints related to her ears today. Upon emergence from the hyperbaric chamber, the patient's vital signs remained stable. The patient was discharged in good condition. Blood glucose levels before and after hyperbaric oxygen therapy are documented elsewhere. 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, sequela (Chronic) Nonhealing ulcer of right lower extremity with fat layer exposed (Chronic) Nonhealing ulcer right inferior knee by tibial tubercle History of DVT (deep vein thrombosis) (Chronic) Septic arthritis of knee, right (Chronic) Hx of total knee replacement (Chronic) right Restless leg (Chronic) RENNY (obstructive sleep apnea) (Chronic) Hypothyroidism (Chronic) Diverticulosis of colon without diverticulitis (Chronic) Depression (Chronic) Postphlebitic syndrome with inflammation (Chronic) Lumbar disc disease (Chronic) History of Graves' disease (Chronic) Diabetes mellitus (Chronic) Renal insufficiency (Chronic) Presence of IVC filter (Chronic) Obesity (Chronic) Edema leg (Chronic) Leg swelling (Chronic) DVT of lower extremity (deep venous thrombosis) (Chronic) Allergies/Adverse Reactions: Allergies hydrocodone bitartrate [From Lortab] Allergy (Intermediate, Verified 09/06/19 07:31) Other lips swell, ataxia etodolac Allergy (Verified 09/06/19 07:31) Unknown misoprostol Allergy (Verified 09/06/19 07:31) Unknown celecoxib Adverse Reaction (Intermediate, Verified 09/06/19 07:31) Other heart palpitations diclofenac [Diclofenac] Adverse Reaction (Mild, Verified 09/06/19 07:31) Abd cramps/diarrhea ketorolac tromethamine [From Toradol] Adverse Reaction (Mild, Verified 09/06/19 07:31) Other balance issues metoclopramide HCl [From Reglan] Adverse Reaction (Mild, Verified 09/06/19 07:31) Other worsens restless leg atorvastatin [From Lipitor] Adverse Reaction (Verified 09/06/19 07:31) Other FACE SPASMS clindamycin Adverse Reaction (Verified 09/06/19 07:31) Mucosal lesions Home Medications: Ambulatory Orders Medication Instructions Recorded Levothyroxine [Synthroid] 175 mcg PO DAILY 09/01/13 Omeprazole [Prilosec] 20 mg PO DAILY 12/13/16 Cholecalciferol (Vitamin D3) 5,000 unit PO DAILY@1200 01/25/17 [Vitamin D3] [place]-3 Fatty Acids/Fish Oil [Fish 2,000 mg PO LUNCH 03/21/18 Oil 1,000 mg Capsule] Gabapentin 800 mg PO BID 08/01/18 Gabapentin [Neurontin] 1,200 mg PO QHS 08/01/18 Lisinopril [Zestril] 10 mg PO LUNCH 08/01/18 Pramipexole Di-HCl [Pramipexole 1 mg PO LUNCH 08/01/18 Dihydrochloride] Pramipexole Di-HCl [Pramipexole 1.5 tab PO QHS 08/01/18 Dihydrochloride] Venlafaxine HCl [Effexor Xr] 1 tab PO DAILY 08/01/18 Venlafaxine HCl [Venlafaxine HCl 1 tab PO DAILY 08/01/18 ER] Aspirin [Aspir-Low] 81 mg PO LUNCH 05/02/19 Famotidine [Pepcid] 40 mg PO QHS 05/02/19 Ferrous Sulfate 325 mg PO DAILY 08/30/19 Ascorbic Acid [Vitamin C] 500 mg PO LUNCH 11/28/19 Doxycycline 100 mg PO BID 11/28/19 Montelukast [Singulair] 10 mg PO QHS 11/28/19 Pramipexole Di-HCl [Mirapex] 0.5 mg PO DAILY 11/28/19 Voriconazole 200 mg PO BID 11/28/19 Acetaminophen [Tylenol] 1,000 mg PO Q8 tab 12/04/19 Senna/Docusate Sodium [Senokot-S] 2 tab PO BID tab 12/04/19 Maternal Family History: Heart Disease, Hypertension Paternal Family History: Heart Disease, Hypertension Sibling Family History: Cancer, Diabetes, Hypertension, - Smoking Status: Former smoker Physical Exam Vital Signs Temp Pulse Resp BP 96.1 F L 84 16 128/65 H 02/06/20 10:19 02/06/20 10:19 02/06/20 10:19 02/06/20 10:19 General: Alert, Oriented x3, Cooperative, No apparent distress, Well developed, Well nourished HEENT: Atraumatic, PERRLA, EOMI, Normocephalic Lungs: Normal air movement Psych/Mental Status: Normal Affect, Appropriate, Alert and oriented to time, place, person, mood and affect Assessment/Plan Active Problems Chronic ulcer of right leg (Chronic) 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 Treatment Course Number Number of HBO Treatments 20 Ordered Treatment Course Number 1 Treatment # 6 Chamber # 1 Chamber Type Monoplace Diabetes - Detail Diabetes Diabetes Type II Other - Detail Compromised/Failed Flap/Graft Yes (specify site in comment) Treatment Plan PATRICIA (Atmospheric Absolute) 2 Number of Minutes 90 Number of Air Breaks 0
[2020-02-07 08:06] LABS: Bedside Glucose 126 mg/dL (70-110)
[2020-02-07 09:16] LABS: Bedside Glucose 132 mg/dL (70-110)
[2020-02-07 09:21] VITALS: BP 123/62; BP 139/68; PULSE 80; PULSE 85; RESP 18; TEMP 35.6; TEMP 36.2
--- NOTE | 2020-02-07 12:14 | PCM.HBO.PN ---
History of Present Illness Date of Service: 02/07/20 Presenting Chief Complaint: Nonhealing ulcer right inferior knee s/p polyethylene exchange and gastrocnemius muscle flap reconstruction on 11/29/19 - failing/compromised flap. RAJESH CARRENO is a 59 year old currently undergoing hyperbaric oxygen therapy for a failing/compromised right medial gastrocnemius muscular rotation flap. Progress: Today's session represents the 7th session of hyperbaric oxygen therapy, of an expected 20 such treatments. Tolerance of hyperbaric oxygen therapy: Hyperbaric oxygen therapy was administered as per the facility's protocol. Hyperbaric oxygen therapy was administered for 90 minutes at 2 tahir, with no air breaks. The patient tolerated hyperbaric oxygen therapy well, without complaints or complications. The patient underwent bilateral myringotomy tube placement on January 29, 2020, and had no complaints related to her ears today. Upon emergence from the hyperbaric chamber, the patient's vital signs remained stable. The patient was discharged in good condition. Blood glucose levels before and after hyperbaric oxygen therapy are documented elsewhere. 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, sequela (Chronic) Nonhealing ulcer of right lower extremity with fat layer exposed (Chronic) Nonhealing ulcer right inferior knee by tibial tubercle History of DVT (deep vein thrombosis) (Chronic) Septic arthritis of knee, right (Chronic) Hx of total knee replacement (Chronic) right Restless leg (Chronic) RENNY (obstructive sleep apnea) (Chronic) Hypothyroidism (Chronic) Diverticulosis of colon without diverticulitis (Chronic) Depression (Chronic) Postphlebitic syndrome with inflammation (Chronic) Lumbar disc disease (Chronic) History of Graves' disease (Chronic) Diabetes mellitus (Chronic) Renal insufficiency (Chronic) Presence of IVC filter (Chronic) Obesity (Chronic) Edema leg (Chronic) Leg swelling (Chronic) DVT of lower extremity (deep venous thrombosis) (Chronic) Allergies/Adverse Reactions: Allergies hydrocodone bitartrate [From Lortab] Allergy (Intermediate, Verified 09/06/19 07:31) Other lips swell, ataxia etodolac Allergy (Verified 09/06/19 07:31) Unknown misoprostol Allergy (Verified 09/06/19 07:31) Unknown celecoxib Adverse Reaction (Intermediate, Verified 09/06/19 07:31) Other heart palpitations diclofenac [Diclofenac] Adverse Reaction (Mild, Verified 09/06/19 07:31) Abd cramps/diarrhea ketorolac tromethamine [From Toradol] Adverse Reaction (Mild, Verified 09/06/19 07:31) Other balance issues metoclopramide HCl [From Reglan] Adverse Reaction (Mild, Verified 09/06/19 07:31) Other worsens restless leg atorvastatin [From Lipitor] Adverse Reaction (Verified 09/06/19 07:31) Other FACE SPASMS clindamycin Adverse Reaction (Verified 09/06/19 07:31) Mucosal lesions Home Medications: Ambulatory Orders Medication Instructions Recorded Levothyroxine [Synthroid] 175 mcg PO DAILY 09/01/13 Omeprazole [Prilosec] 20 mg PO DAILY 12/13/16 Cholecalciferol (Vitamin D3) 5,000 unit PO DAILY@1200 01/25/17 [Vitamin D3] [place]-3 Fatty Acids/Fish Oil [Fish 2,000 mg PO LUNCH 03/21/18 Oil 1,000 mg Capsule] Gabapentin 800 mg PO BID 08/01/18 Gabapentin [Neurontin] 1,200 mg PO QHS 08/01/18 Lisinopril [Zestril] 10 mg PO LUNCH 08/01/18 Pramipexole Di-HCl [Pramipexole 1 mg PO LUNCH 08/01/18 Dihydrochloride] Pramipexole Di-HCl [Pramipexole 1.5 tab PO QHS 08/01/18 Dihydrochloride] Venlafaxine HCl [Effexor Xr] 1 tab PO DAILY 08/01/18 Venlafaxine HCl [Venlafaxine HCl 1 tab PO DAILY 08/01/18 ER] Aspirin [Aspir-Low] 81 mg PO LUNCH 05/02/19 Famotidine [Pepcid] 40 mg PO QHS 05/02/19 Ferrous Sulfate 325 mg PO DAILY 08/30/19 Ascorbic Acid [Vitamin C] 500 mg PO LUNCH 11/28/19 Doxycycline 100 mg PO BID 11/28/19 Montelukast [Singulair] 10 mg PO QHS 11/28/19 Pramipexole Di-HCl [Mirapex] 0.5 mg PO DAILY 11/28/19 Voriconazole 200 mg PO BID 11/28/19 Acetaminophen [Tylenol] 1,000 mg PO Q8 tab 12/04/19 Senna/Docusate Sodium [Senokot-S] 2 tab PO BID tab 12/04/19 Maternal Family History: Heart Disease, Hypertension Paternal Family History: Heart Disease, Hypertension Sibling Family History: Cancer, Diabetes, Hypertension, - Smoking Status: Former smoker Physical Exam Vital Signs Temp Pulse Resp BP 96.1 F L 85 18 139/68 H 02/07/20 09:21 02/07/20 09:21 02/07/20 09:21 02/07/20 09:21 Assessment/Plan Active Problems Chronic ulcer of right leg (Chronic) 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 Treatment Course Number Number of HBO Treatments 20 Ordered Treatment Course Number 1 Treatment # 7 Chamber # [id number] Chamber Type Monoplace Diabetes - Detail Diabetes Diabetes Type II Other - Detail Compromised/Failed Flap/Graft Yes (specify site in comment) Treatment Plan PATRICIA (Atmospheric Absolute) 2.0 Number of Minutes 90 Number of Air Breaks 0
[2020-02-08 07:50] LABS: Bedside Glucose 166 mg/dL (70-110)
[2020-02-08 08:39] VITALS: BP 105/65; BP 121/68; PULSE 78; PULSE 87; RESP 18; TEMP 36.6; TEMP 37.2
[2020-02-08 10:46] LABS: Bedside Glucose 138 mg/dL (70-110)
--- NOTE | 2020-02-08 13:06 | PCM.HBO.PN ---
History of Present Illness Date of Service: 02/08/20 Presenting Chief Complaint: Nonhealing ulcer right inferior knee s/p polyethylene exchange and gastrocnemius muscle flap reconstruction on 11/29/19 - failing/compromised flap. RAJESH CARRENO is a 59 year old currently undergoing hyperbaric oxygen therapy for a failing/compromised right medial gastrocnemius muscular rotation flap. Progress: Today's session represents the 8th session of hyperbaric oxygen therapy, of an expected 20 such treatments. Tolerance of hyperbaric oxygen therapy: Hyperbaric oxygen therapy was administered as per the facility's protocol. Hyperbaric oxygen therapy was administered for 90 minutes at 2 tahir, with no air breaks. The patient tolerated hyperbaric oxygen therapy well, without complaints or complications. Upon emergence from the hyperbaric chamber, the patient's vital signs remained stable. The patient was discharged in good condition. Blood glucose levels before and after hyperbaric oxygen therapy are documented elsewhere. 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, sequela (Chronic) Nonhealing ulcer of right lower extremity with fat layer exposed (Chronic) Nonhealing ulcer right inferior knee by tibial tubercle History of DVT (deep vein thrombosis) (Chronic) Septic arthritis of knee, right (Chronic) Hx of total knee replacement (Chronic) right Restless leg (Chronic) RENNY (obstructive sleep apnea) (Chronic) Hypothyroidism (Chronic) Diverticulosis of colon without diverticulitis (Chronic) Depression (Chronic) Postphlebitic syndrome with inflammation (Chronic) Lumbar disc disease (Chronic) History of Graves' disease (Chronic) Diabetes mellitus (Chronic) Renal insufficiency (Chronic) Presence of IVC filter (Chronic) Obesity (Chronic) Edema leg (Chronic) Leg swelling (Chronic) DVT of lower extremity (deep venous thrombosis) (Chronic) Allergies/Adverse Reactions: Allergies hydrocodone bitartrate [From Lortab] Allergy (Intermediate, Verified 09/06/19 07:31) Other lips swell, ataxia etodolac Allergy (Verified 09/06/19 07:31) Unknown misoprostol Allergy (Verified 09/06/19 07:31) Unknown celecoxib Adverse Reaction (Intermediate, Verified 09/06/19 07:31) Other heart palpitations diclofenac [Diclofenac] Adverse Reaction (Mild, Verified 09/06/19 07:31) Abd cramps/diarrhea ketorolac tromethamine [From Toradol] Adverse Reaction (Mild, Verified 09/06/19 07:31) Other balance issues metoclopramide HCl [From Reglan] Adverse Reaction (Mild, Verified 09/06/19 07:31) Other worsens restless leg atorvastatin [From Lipitor] Adverse Reaction (Verified 09/06/19 07:31) Other FACE SPASMS clindamycin Adverse Reaction (Verified 09/06/19 07:31) Mucosal lesions Home Medications: Ambulatory Orders Medication Instructions Recorded Levothyroxine [Synthroid] 175 mcg PO DAILY 09/01/13 Omeprazole [Prilosec] 20 mg PO DAILY 12/13/16 Cholecalciferol (Vitamin D3) 5,000 unit PO DAILY@1200 01/25/17 [Vitamin D3] [place]-3 Fatty Acids/Fish Oil [Fish 2,000 mg PO LUNCH 03/21/18 Oil 1,000 mg Capsule] Gabapentin 800 mg PO BID 08/01/18 Gabapentin [Neurontin] 1,200 mg PO QHS 08/01/18 Lisinopril [Zestril] 10 mg PO LUNCH 08/01/18 Pramipexole Di-HCl [Pramipexole 1 mg PO LUNCH 08/01/18 Dihydrochloride] Pramipexole Di-HCl [Pramipexole 1.5 tab PO QHS 08/01/18 Dihydrochloride] Venlafaxine HCl [Effexor Xr] 1 tab PO DAILY 08/01/18 Venlafaxine HCl [Venlafaxine HCl 1 tab PO DAILY 08/01/18 ER] Aspirin [Aspir-Low] 81 mg PO LUNCH 05/02/19 Famotidine [Pepcid] 40 mg PO QHS 05/02/19 Ferrous Sulfate 325 mg PO DAILY 08/30/19 Ascorbic Acid [Vitamin C] 500 mg PO LUNCH 11/28/19 Doxycycline 100 mg PO BID 11/28/19 Montelukast [Singulair] 10 mg PO QHS 11/28/19 Pramipexole Di-HCl [Mirapex] 0.5 mg PO DAILY 11/28/19 Voriconazole 200 mg PO BID 11/28/19 Acetaminophen [Tylenol] 1,000 mg PO Q8 tab 12/04/19 Senna/Docusate Sodium [Senokot-S] 2 tab PO BID tab 12/04/19 Maternal Family History: Heart Disease, Hypertension Paternal Family History: Heart Disease, Hypertension Sibling Family History: Cancer, Diabetes, Hypertension, - Smoking Status: Former smoker Physical Exam Vital Signs Temp Pulse Resp BP 98.9 F 87 18 121/68 H 02/08/20 08:39 02/08/20 08:39 02/08/20 08:39 02/08/20 08:39 General: Alert, Oriented x3, Cooperative, No apparent distress HEENT: Atraumatic, Normocephalic Lungs: Normal air movement Psych/Mental Status: Normal Affect Assessment/Plan Active Problems Chronic ulcer of right leg (Chronic) 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 Treatment Course Number Number of HBO Treatments 20 Ordered Treatment Course Number 1 Treatment # 8 Chamber # [id number] Chamber Type Monoplace Diabetes - Detail Diabetes Diabetes Type II Other - Detail Compromised/Failed Flap/Graft Yes (specify site in comment) Treatment Plan PATRICIA (Atmospheric Absolute) 2 Number of Minutes 90 Number of Air Breaks 0 HBO supervision
[2020-02-09 07:50] LABS: Bedside Glucose 135 mg/dL (70-110)
[2020-02-09 10:06] LABS: Bedside Glucose 154 mg/dL (70-110)
[2020-02-09 10:25] VITALS: BP 121/42; BP 137/62; PULSE 78; PULSE 89; RESP 16; TEMP 35.8; TEMP 36.4
--- NOTE | 2020-02-09 10:40 | HBO.PN.PCM_ITS ---
History of Present Illness Date of Service: 02/09/20 Presenting Chief Complaint: Nonhealing ulcer right inferior knee s/p polyethylene exchange and gastrocnemius muscle flap reconstruction on 11/29/19 - failing/compromised flap. RAJESH CARRENO is a 59 year old currently undergoing hyperbaric oxygen therapy for a failing/compromised right medial gastrocnemius muscular rotation flap. Progress: Today's session represents the9th session of hyperbaric oxygen therapy, of an expected 20 such treatments. Tolerance of hyperbaric oxygen therapy: Hyperbaric oxygen therapy was administered as per the facility's protocol. Hyperbaric oxygen therapy was administered for 90 minutes at 2 tahir, with no air breaks. The patient tolerated hyperbaric oxygen therapy well, without complaints or complications. Upon emergence from the hyperbaric chamber, the patient's vital signs remained stabl e. The patient was discharged in good condition. Blood glucose levels before and after hyperbaric oxygen therapy are documented elsewhere. 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, sequela (Chronic) Nonhealing ulcer of right lower extremity with fat layer exposed (Chronic) Nonhealing ulcer right inferior knee by tibial tubercle History of DVT (deep vein thrombosis) (Chronic) Septic arthritis of knee, right (Chronic) Hx of total knee replacement (Chronic) right Restless leg (Chronic) RENNY (obstructive sleep apnea) (Chronic) Hypothyroidism (Chronic) Diverticulosis of colon without diverticulitis (Chronic) Depression (Chronic) Postphlebitic syndrome with inflammation (Chronic) Lumbar disc disease (Chronic) History of Graves' disease (Chronic) Diabetes mellitus (Chronic) Renal insufficiency (Chronic) Presence of IVC filter (Chronic) Obesity (Chronic) Edema leg (Chronic) Leg swelling (Chronic) DVT of lower extremity (deep venous thrombosis) (Chronic) Allergies/Adverse Reactions: Allergies hydrocodone bitartrate [From Lortab] Allergy (Intermediate, Verified 09/06/19 07:31) Other lips swell, ataxia etodolac Allergy (Verified 09/06/19 07:31) Unknown misoprostol Allergy (Verified 09/06/19 07:31) Unknown celecoxib Adverse Reaction (Intermediate, Verified 09/06/19 07:31) Other heart palpitations diclofenac [Diclofenac] Adverse Reaction (Mild, Verified 09/06/19 07:31) Abd cramps/diarrhea ketorolac tromethamine [From Toradol] Adverse Reaction (Mild, Verified 09/06/19 07:31) Other balance issues metoclopramide HCl [From Reglan] Adverse Reaction (Mild, Verified 09/06/19 07:31) Other worsens restless leg atorvastatin [From Lipitor] Adverse Reaction (Verified 09/06/19 07:31) Other FACE SPASMS clindamycin Adverse Reaction (Verified 09/06/19 07:31) Mucosal lesions Home Medications: Ambulatory Orders Medication Instructions Recorded Levothyroxine [Synthroid] 175 mcg PO DAILY 09/01/13 Omeprazole [Prilosec] 20 mg PO DAILY 12/13/16 Cholecalciferol (Vitamin D3) 5,000 unit PO DAILY@1200 01/25/17 [Vitamin D3] [place]-3 Fatty Acids/Fish Oil [Fish 2,000 mg PO LUNCH 03/21/18 Oil 1,000 mg Capsule] Gabapentin 800 mg PO BID 08/01/18 Gabapentin [Neurontin] 1,200 mg PO QHS 08/01/18 Lisinopril [Zestril] 10 mg PO LUNCH 08/01/18 Pramipexole Di-HCl [Pramipexole 1 mg PO LUNCH 08/01/18 Dihydrochloride] Pramipexole Di-HCl [Pramipexole 1.5 tab PO QHS 08/01/18 Dihydrochloride] Venlafaxine HCl [Effexor Xr] 1 tab PO DAILY 08/01/18 Venlafaxine HCl [Venlafaxine HCl 1 tab PO DAILY 08/01/18 ER] Aspirin [Aspir-Low] 81 mg PO LUNCH 05/02/19 Famotidine [Pepcid] 40 mg PO QHS 05/02/19 Ferrous Sulfate 325 mg PO DAILY 08/30/19 Ascorbic Acid [Vitamin C] 500 mg PO LUNCH 11/28/19 Doxycycline 100 mg PO BID 11/28/19 Montelukast [Singulair] 10 mg PO QHS 11/28/19 Pramipexole Di-HCl [Mirapex] 0.5 mg PO DAILY 11/28/19 Voriconazole 200 mg PO BID 11/28/19 Acetaminophen [Tylenol] 1,000 mg PO Q8 tab 12/04/19 Senna/Docusate Sodium [Senokot-S] 2 tab PO BID tab 12/04/19 Maternal Family History: Heart Disease, Hypertension Paternal Family History: Heart Disease, Hypertension Sibling Family History: Cancer, Diabetes, Hypertension, - Smoking Status: Former smoker Physical Exam Vital Signs Temp Pulse Resp BP 96.4 F L 89 16 137/62 H 02/09/20 10:25 02/09/20 10:25 02/09/20 10:25 02/09/20 10:25 General: Alert, Oriented x3, Cooperative, No apparent distress Psych/Mental Status: Normal Affect, Appropriate Assessment/Plan Active Problems Chronic ulcer of right leg (Chronic) 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 Treatment Course Number Number of HBO Treatments 20 Ordered Treatment Course Number 1 Treatment # 9 Chamber # 1 Chamber Type Monoplace Diabetes - Detail Diabetes Diabetes Type II Other - Detail Compromised/Failed Flap/Graft Yes (specify site in comment) Treatment Plan PATRICIA (Atmospheric Absolute) 2 Number of Minutes 90 Number of Air Breaks 0
[2020-02-12 07:56] LABS: Bedside Glucose 168 mg/dL (70-110)
[2020-02-12 08:27] VITALS: BP 117/58; BP 133/72; PULSE 76; PULSE 84; RESP 16; TEMP 35.8
--- NOTE | 2020-02-12 08:50 | PCM.HBO.PN ---
History of Present Illness Date of Service: 02/12/20 Presenting Chief Complaint: Nonhealing ulcer right inferior knee s/p polyethylene exchange and gastrocnemius muscle flap reconstruction on 11/29/19 - failing/compromised flap. RAJESH CARRENO is a 59 year old currently undergoing hyperbaric oxygen therapy for a failing/compromised right medial gastrocnemius muscular rotation flap. Progress: Today's session represents the 10th session of hyperbaric oxygen therapy, of an expected 20 such treatments. Tolerance of hyperbaric oxygen therapy: Hyperbaric oxygen therapy was administered as per the facility's protocol. Hyperbaric oxygen therapy was administered for 90 minutes at 2 tahir, with no air breaks. The patient tolerated hyperbaric oxygen therapy well, without complaints or complications. Upon emergence from the hyperbaric chamber, the patient's vital signs remained stable. The patient was discharged in good condition. Blood glucose levels before and after hyperbaric oxygen therapy are documented elsewhere. 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, sequela (Chronic) Nonhealing ulcer of right lower extremity with fat layer exposed (Chronic) Nonhealing ulcer right inferior knee by tibial tubercle History of DVT (deep vein thrombosis) (Chronic) Septic arthritis of knee, right (Chronic) Hx of total knee replacement (Chronic) right Restless leg (Chronic) RENNY (obstructive sleep apnea) (Chronic) Hypothyroidism (Chronic) Diverticulosis of colon without diverticulitis (Chronic) Depression (Chronic) Postphlebitic syndrome with inflammation (Chronic) Lumbar disc disease (Chronic) History of Graves' disease (Chronic) Diabetes mellitus (Chronic) Renal insufficiency (Chronic) Presence of IVC filter (Chronic) Obesity (Chronic) Edema leg (Chronic) Leg swelling (Chronic) DVT of lower extremity (deep venous thrombosis) (Chronic) Allergies/Adverse Reactions: Allergies hydrocodone bitartrate [From Lortab] Allergy (Intermediate, Verified 09/06/19 07:31) Other lips swell, ataxia etodolac Allergy (Verified 09/06/19 07:31) Unknown misoprostol Allergy (Verified 09/06/19 07:31) Unknown celecoxib Adverse Reaction (Intermediate, Verified 09/06/19 07:31) Other heart palpitations diclofenac [Diclofenac] Adverse Reaction (Mild, Verified 09/06/19 07:31) Abd cramps/diarrhea ketorolac tromethamine [From Toradol] Adverse Reaction (Mild, Verified 09/06/19 07:31) Other balance issues metoclopramide HCl [From Reglan] Adverse Reaction (Mild, Verified 09/06/19 07:31) Other worsens restless leg atorvastatin [From Lipitor] Adverse Reaction (Verified 09/06/19 07:31) Other FACE SPASMS clindamycin Adverse Reaction (Verified 09/06/19 07:31) Mucosal lesions Home Medications: Ambulatory Orders Medication Instructions Recorded Levothyroxine [Synthroid] 175 mcg PO DAILY 09/01/13 Omeprazole [Prilosec] 20 mg PO DAILY 12/13/16 Cholecalciferol (Vitamin D3) 5,000 unit PO DAILY@1200 01/25/17 [Vitamin D3] [place]-3 Fatty Acids/Fish Oil [Fish 2,000 mg PO LUNCH 03/21/18 Oil 1,000 mg Capsule] Gabapentin 800 mg PO BID 08/01/18 Gabapentin [Neurontin] 1,200 mg PO QHS 08/01/18 Lisinopril [Zestril] 10 mg PO LUNCH 08/01/18 Pramipexole Di-HCl [Pramipexole 1 mg PO LUNCH 08/01/18 Dihydrochloride] Pramipexole Di-HCl [Pramipexole 1.5 tab PO QHS 08/01/18 Dihydrochloride] Venlafaxine HCl [Effexor Xr] 1 tab PO DAILY 08/01/18 Venlafaxine HCl [Venlafaxine HCl 1 tab PO DAILY 08/01/18 ER] Aspirin [Aspir-Low] 81 mg PO LUNCH 05/02/19 Famotidine [Pepcid] 40 mg PO QHS 05/02/19 Ferrous Sulfate 325 mg PO DAILY 08/30/19 Ascorbic Acid [Vitamin C] 500 mg PO LUNCH 11/28/19 Doxycycline 100 mg PO BID 11/28/19 Montelukast [Singulair] 10 mg PO QHS 11/28/19 Pramipexole Di-HCl [Mirapex] 0.5 mg PO DAILY 11/28/19 Voriconazole 200 mg PO BID 11/28/19 Acetaminophen [Tylenol] 1,000 mg PO Q8 tab 12/04/19 Senna/Docusate Sodium [Senokot-S] 2 tab PO BID tab 12/04/19 Maternal Family History: Heart Disease, Hypertension Paternal Family History: Heart Disease, Hypertension Sibling Family History: Cancer, Diabetes, Hypertension, - Smoking Status: Former smoker Physical Exam Vital Signs Temp Pulse Resp BP 96.4 F L 84 16 117/58 L 02/12/20 08:27 02/12/20 08:27 02/12/20 08:27 02/12/20 08:27 General: Alert, Oriented x3, Cooperative, No apparent distress HEENT: Atraumatic, TM's Clear Lungs: Clear to auscultation, Normal air movement Cardiovascular: Regular rate, Regular Rhythm Psych/Mental Status: Normal Affect, Appropriate, Alert and oriented to time, place, person, mood and affect Assessment/Plan Active Problems Chronic ulcer of right leg (Chronic) 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
[2020-02-12 10:21] LABS: Bedside Glucose 108 mg/dL (70-110)
[2020-02-12 10:27] VITALS: BP 133/72; PULSE 76; RESP 16; TEMP 35.8; BMI 45.3
--- NOTE | 2020-02-12 14:26 | PN.PCM_ITS ---
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 Status: Chronic Code(s): L97.912 - Non-pressure chronic ulcer of unspecified part of right lower leg with fat layer exposed Comment: Nonhealing ulcer right inferior knee by tibial tubercle (3) Diabetes mellitus with skin ulcer Status: Chronic Code(s): E11.622 - Type 2 diabetes mellitus with other skin ulcer; L98.499 - Non-pressure chronic ulcer of skin of other sites with unspecified severity (4) Diabetes mellitus Status: Chronic Qualifiers: Diabetes mellitus type: type 2 Code(s): E11.9 - Type 2 diabetes mellitus without complications (5) History of right knee joint replacement Status: Chronic Code(s): Z96.651 - Presence of right artificial knee joint (6) Edema leg Status: Chronic Code(s): R60.0 - Localized edema Type of Wound Date of Service: 02/12/20 Chief Complaint: Nonhealing ulcer right inferior knee s/p polyethylene exchange and gastrocnemius muscle flap reconstruction on 11/29/19 - failing/compromised flap. History of Wound: Surgery 11/29/19 - Irrigation debridement with polyethylene exchange right total knee and excision sinus tract right knee by Dr Barton. Reconstruction right inferior knee wound with right medial gastrocnemius muscular rotation flap and STSG reconstruction from right lateral abdominal wall (45 cm2) and 13 cm right superior knee wound complex secondary wound closure and epineural repair sural nerve injury right posterior leg. Wound care - Was using silver but it was sticking too much. Will start moistened Tayla covered by adaptic daily. Operative cultures negative. Currently on Doxycycline and Voriconazole from ID. Prealbumin on 11/30/19 was 24.7. Encourage nutritional supplementation with protein to help the healing process. Today she denies any fever, chills, nausea, vomiting, or diarrhea. Denies any redness, swelling, or purulent/malodorous drainage from affected area. Her appetite is good. She is ambulating ok with the walker. Progress of Wound: Patient tolerating HBOT well for her compromised skin graft. Skin graft/ulcer on right knee is improved. The opened area on the posterior leg/calf area is stable. - Physical Exam Vital Signs Temp Pulse Resp BP 96.4 F L 76 16 133/72 H 02/12/20 10:27 02/12/20 10:27 02/12/20 10:27 02/12/20 10:27 General: Alert, Oriented x3, Cooperative HEENT: Atraumatic Oral: Moist Mucosa Lungs: Normal air movement Cardiovascular: Regular rate Extremities: Capillary Refill Less than 3 Seconds, Edema Skin: Ulcer/ Wound - Right knee skin graft compromise/opened area is improved with granulation tissue present. Right posterior leg/calf opened area is stable. Wound Measurements and Assessment WC - Nurse 1 - General Ulcer Measurement Start: 02/05/20 10:21 Freq: Status: Active Protocol: Activity Type Activity Date Activity User E-Sign Co-Sign Detail Recorded Client Recorded Date Recorded By Document 02/12/20 10:27 [facility] [id number] 02/12/20 10:34 [facility] 02/12/20 10:27 Wound Center Nurse 1 [Ulcer Assessment] #4 R Post calf -Combined with other wound No -Current Size (cm) - Length 2.5 -Current Size (cm) - Width 0.8 -Current Size (cm) - Depth 0.2 -Total Square Cm 2.00 -Photo Taken No -Epithelialization None Present -Tunneling No -Undermining/Tunneling No -Circular Undermining No -Exudate Amt Small -Exudate Type Serosanguineous -Wound Margin Distinct, Outline Attached -Granulation Amt Small (1-33%) -Granulation Quality Red -Slough/Fibrin Yes -Necrosis Amt Large (67-100%) -Necrotic Tissue Type Adherent Slough -Texture (Aileen-wound Skin Appearance) Assessed, Scarring -Moisture (Aileen-wound Skin Appearance Assessed,Dry/ ) Scaly -Color (Aileen-wound Skin Appearance) Assessed -Temperature (Aileen-wound Skin No Abnormality Appearance) (Pt Warm) -Tenderness on Palpation (Aileen-wound No Skin Appearance) -Ulcer Cleansing Rinsed/ Irrigated with Saline -Foul Odor after Cleansing No -Anesthetic Used 4% Lidocaine Solution 3-right knee graft site -Combined with other wound No -Current Size (cm) - Length 8.9 -Current Size (cm) - Width 4.3 -Current Size (cm) - Depth 0.2 -Total Square Cm 38.27 -Photo Taken No -Epithelialization None Present -Tunneling No -Undermining/Tunneling No -Circular Undermining No -Exudate Amt Medium -Exudate Type Serosanguineous -Wound Margin Distinct, Outline Attached -Granulation Amt Small (1-33%) -Granulation Quality Red -Slough/Fibrin Yes -Necrosis Amt Large (67-100%) -Necrotic Tissue Type Adherent Slough -Texture (Aileen-wound Skin Appearance) Assessed, Scarring -Moisture (Aileen-wound Skin Appearance Assessed,Dry/ ) Scaly -Color (Aileen-wound Skin Appearance) Assessed -Temperature (Aileen-wound Skin No Abnormality Appearance) (Pt Warm) -Tenderness on Palpation (Aileen-wound No Skin Appearance) -Ulcer Cleansing Rinsed/ Irrigated with Saline -Foul Odor after Cleansing No -Anesthetic Used 4% Lidocaine Solution WC - Nurse 2 - General Ulcer CM Notes Start: 02/05/20 10:21 Freq: Status: Active Protocol: Activity Type Activity Date Activity User E-Sign Co-Sign Detail Recorded Client Recorded Date Recorded By Document 02/12/20 10:58 [id number] 02/12/20 11:03 02/12/20 10:58 Wound Center Nurse 2 [Procedure/Treatment] #4 R Post calf -Time 10:58 -Correct Patient Yes -Correct Side, Site, Position Yes -Correct Procedure Yes -Procedure Performed Yes -Type of Procedure Debridement -Clinical Debridement Subcutaneous -Tissue Removed Subcutaneous -Post Debridement (cm) - Length 3.2 -Post Debridement (cm) - Width 1.0 -Post Debridement (cm) - Depth 0.6 -Total Square (Post) (cm) 3.20 -Area of Debridement (cm) - Length 3.0 -Area of Debridement (cm) - Width 1.0 -Total Square (Area) (cm) 3.00 -Tunneling No -Undermining/Tunneling No -Circular Undermining No -Wound/Ulcer Outcome Not Healed -Ulcer Cleansing Rinsed/ Irrigated with Saline -Foul Odor after Cleansing No -Bioengineered Tissue No -Bleeding Controlled with Pressure -Offloading No -Treatment Response Procedure Tolerated Well -Debridement - Subq, 1st 20sq cm No 3-right knee graft site -Time 10:59 -Correct Patient Yes -Correct Side, Site, Position Yes -Correct Procedure Yes -Procedure Performed Yes -Type of Procedure Debridement -Clinical Debridement Subcutaneous -Tissue Removed Subcutaneous -Post Debridement (cm) - Length 9.0 -Post Debridement (cm) - Width 4.3 -Post Debridement (cm) - Depth 0.2 -Total Square (Post) (cm) 38.70 -Area of Debridement (cm) - Length 9.0 -Area of Debridement (cm) - Width 4.3 -Total Square (Area) (cm) 38.70 -Tunneling No -Undermining/Tunneling No -Circular Undermining No -Wound/Ulcer Outcome Not Healed -Ulcer Cleansing Rinsed/ Irrigated with Saline -Foul Odor after Cleansing No -Bioengineered Tissue No -Bleeding Controlled with Pressure -Offloading No -Treatment Response Procedure Tolerated Well -Debridement - Subq, 1st 20sq cm Yes -Debridement, SubQ, ea addt'l 20sq cm 2 or part thereof [See Physician Procedure note for Specifics] Pain Scale: 0-10 Numeric [Pain] -Is Patient Pain Free? Yes - Nurse 3 - General Ulcer D/C NN Start: 02/05/20 10:21 Freq: Status: Active Protocol: Activity Type Activity Date Activity User E-Sign Co-Sign Detail Recorded Client Recorded Date Recorded By Document 02/12/20 11:12 [facility] [id number] 02/12/20 11:13 [facility] 02/12/20 11:12 Wound Care Nurse 3 [Wound Dressing] #4 R Post calf -Ulcer Cleansing Rinsed/ Irrigated with Saline -Foul Odor after Cleansing No -Primary Dressing Applied C Hydrogel ($), NonAdherent Contact Layer -Primary Dressing Covered/Secured Dry Gauze & with Roll Gauze, Secured with Tape,Other -Other Covering abd 3-right knee graft site -Ulcer Cleansing Rinsed/ Irrigated with Saline -Foul Odor after Cleansing No -Primary Dressing Applied NonAdherent Contact Layer, Other -Other Dressing hydrogel -Primary Dressing Covered/Secured Dry Gauze & with Roll Gauze, Secured with Tape,Other -Other Covering abd [Compression Applied] Right -Compression Wrap Roger Wrap Pain Scale: 0-10 Numeric [Pain] -Is Patient Pain Free? Yes - Visit Discharge [Visit Discharge Information] -Discharge Condition Stable -Ambulatory Status Ambulatory -Transportation Private Auto Musculoskeletal: No Tenderness to Palpation of Joints or Extremities Neurological: Cranial nerves II-XII grossly intact Psych/Mental Status: Normal Affect, Appropriate Debridement Note Post-Debridement Measurements/Treatment - Nurse 2 - General Ulcer CM Notes Start: 02/05/20 10:21 Freq: Status: Active Protocol: Activity Type Activity Date Activity User E-Sign Co-Sign Detail Recorded Client Recorded Date Recorded By Document 02/05/20 10:49 [id number] 02/05/20 11:01 Document 02/12/20 10:58 [id number] 02/12/20 11:03 02/05/20 02/12/20 10:49 10:58 Wound Center Nurse 2 #4 R Post calf -Time 10:53 10:58 -Correct Patient Yes Yes -Correct Side, Site, Position Yes Yes -Correct Procedure Yes Yes -Procedure Performed Yes Yes -Type of Procedure Debridement Debridement -Clinical Debridement Subcutaneous Subcutaneous -Tissue Removed Subcutaneous Subcutaneous -Post Debridement (cm) - Length 3.3 3.2 -Post Debridement (cm) - Width 1.0 1.0 -Post Debridement (cm) - Depth 0.5 0.6 -Total Square (Post) (cm) 3.30 3.20 -Area of Debridement (cm) - Length 3.3 3.0 -Area of Debridement (cm) - Width 1.0 1.0 -Total Square (Area) (cm) 3.30 3.00 -Tunneling No No -Undermining/Tunneling No No -Circular Undermining No No -Wound/Ulcer Outcome Not Healed Not Healed -Ulcer Cleansing Rinsed/ Rinsed/ Irrigated with Irrigated with Saline Saline -Foul Odor after Cleansing No No -Bioengineered Tissue No No -Bleeding Controlled with Pressure Pressure -Offloading No No -Treatment Response Procedure Procedure Tolerated Well Tolerated Well -Debridement - Subq, 1st 20sq cm No No 3-right knee graft site -Time 10:50 10:59 -Correct Patient Yes Yes -Correct Side, Site, Position Yes Yes -Correct Procedure Yes Yes -Procedure Performed Yes Yes -Type of Procedure Debridement Debridement -Clinical Debridement Subcutaneous Subcutaneous -Tissue Removed Subcutaneous Subcutaneous -Post Debridement (cm) - Length 9.3 9.0 -Post Debridement (cm) - Width 4.5 4.3 -Post Debridement (cm) - Depth 0.2 0.2 -Total Square (Post) (cm) 41.85 38.70 -Area of Debridement (cm) - Length 9.3 9.0 -Area of Debridement (cm) - Width 4.5 4.3 -Total Square (Area) (cm) 41.85 38.70 -Tunneling No No -Undermining/Tunneling No No -Circular Undermining No No -Wound/Ulcer Outcome Not Healed Not Healed -Ulcer Cleansing Rinsed/ Rinsed/ Irrigated with Irrigated with Saline Saline -Foul Odor after Cleansing No No -Bioengineered Tissue No No -Bleeding Controlled with Pressure Pressure -Offloading No No -Treatment Response Procedure Procedure Tolerated Well Tolerated Well -Debridement - Subq, 1st 20sq cm Yes Yes -Debridement, SubQ, ea addt'l 20sq cm 2 2 or part thereof Pain Scale: 0-10 Numeric Is Patient Pain Free? Yes Yes - Nurse 3 - General Ulcer D/C NN Start: 02/05/20 10:21 Freq: Status: Active Protocol: Activity Type Activity Date Activity User E-Sign Co-Sign Detail Recorded Client Recorded Date Recorded By Document 02/05/20 11:16 [facility] [id number] 02/05/20 11:18 [facility] Document 02/06/20 10:19 [id number] 02/06/20 10:22 Document 02/09/20 10:25 [id number] 02/09/20 10:29 Document 02/12/20 11:12 [facility] [id number] 02/12/20 11:13 [facility] 02/05/20 02/06/20 02/09/20 11:16 10:19 10:25 Wound Care Nurse 3 #4 R Post calf -Ulcer Cleansing Rinsed/ Irrigated with Saline -Foul Odor after Cleansing No -Primary Dressing Applied NonAdherent Contact Layer, Promogran Tayla Matter -Primary Dressing Covered/Secured with Dry Gauze & Roll Gauze, Secured with Tape,Other -Other Covering abd -Promogran Tayla Matter 2 3-right knee graft site -Ulcer Cleansing Rinsed/ Irrigated with Saline -Foul Odor after Cleansing No -Primary Dressing Applied NonAdherent Contact Layer, Promogran Tayla Matter -Other Dressing -Primary Dressing Covered/Secured with Dry Gauze & Roll Gauze, Secured with Tape,Other -Other Covering abd -Promogran Tayla Matter 0 Right -Compression Wrap Treatment Response Procedure Tolerated Well Vital Signs Pulse Rate (60-100) 75 Pulse Location Monitor Respiratory Rate (12-18) 16 Respiratory rate source Observation Oxygen Delivery Method Room Air Blood Pressure (90/60-120/80) 147/96 H Blood Pressure Mean (mm Hg) 113 Source Monitor Position Sitting Pain Scale: 0-10 Numeric Is Patient Pain Free? Yes Yes Yes WC - Visit Discharge Discharge Condition Stable Stable Stable Ambulatory Status Ambulatory Ambulatory Ambulatory Transportation Private Auto Private Auto Private Auto Accompanied by hospital transportation Medication Reconcilliation completed & No Yes provided to patient/care provider Clinical Summary of Care Provided No Yes 02/12/20 11:12 Wound Care Nurse 3 #4 R Post calf -Ulcer Cleansing Rinsed/ Irrigated with Saline -Foul Odor after Cleansing No -Primary Dressing Applied C Hydrogel ($), NonAdherent Contact Layer -Primary Dressing Covered/Secured with Dry Gauze & Roll Gauze, Secured with Tape,Other -Other Covering abd -Promogran Tayla Matter 3-right knee graft site -Ulcer Cleansing Rinsed/ Irrigated with Saline -Foul Odor after Cleansing No -Primary Dressing Applied NonAdherent Contact Layer, Other -Other Dressing hydrogel -Primary Dressing Covered/Secured with Dry Gauze & Roll Gauze, Secured with Tape,Other -Other Covering abd -Promogran Tayla Matter Right -Compression Wrap Roger Wrap Treatment Response Vital Signs Pulse Rate (60-100) Pulse Location Respiratory Rate (12-18) Respiratory rate source Oxygen Delivery Method Blood Pressure (90/60-120/80) Blood Pressure Mean (mm Hg) Source Position Pain Scale: 0-10 Numeric Is Patient Pain Free? Yes WC - Visit Discharge Discharge Condition Stable Ambulatory Status Ambulatory Transportation Private Auto Accompanied by Medication Reconcilliation completed & provided to patient/care provider Clinical Summary of Care Provided Wound debrided: knee skin graft/opened area Laterality: Right Type of Debridement: Excisional debridement Anesthesia Used: 5% Lidocaine Gel Depth: Down to and including healthy tissue, in the subcutaneous layer Percentage of wound debrided: 100 Instrument Used: 5mm curette Tissue Removed: Subcutaneous tissue and slough Severity: Fat Layer Exposed Amount of bleeding with debridement: Mild Bleeding Controlled with: Pressure Patient tolerated procedure well - Additional Wound Wound debrided: posterior leg/calf opened area Laterality: Right Type of Debridement: Excisional debridement Anesthesia Used: 4% Lidocaine Solution Depth: Down to and including healthy tissue, in the subcutaneous layer Percentage of wound debrided: 100 Instrument Used: 3mm curette Tissue Removed: Subcutaneous tissue and slough Severity: Fat Layer Exposed Amount of bleeding with debridement: Mild Bleeding Controlled with: Pressure Patient tolerated procedure: Patient tolerated procedure well Assessment/Plan Active Problems Chronic ulcer of right leg (Chronic) 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 Nonhealing ulcer right inferior knee by tibial tubercle. 2. History of revision replacement right knee. 3. History of right TKA infection. 4. Former smoker. 5. Sural nerve injury right posterior leg. 6. 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 7. Nonhealing surgical wound right posterior leg. 8. Mild skin graft compromise right inferior knee. Plan: Muscle flap is healing satisfactory. Skin graft shows scattered areas of skin graft compromise. She is tolerating HBO treatments for compromised graft although she is having issues with her right ear. She sees Dr. Molina this afternoon for further evaluation. She also has an open area on her right posterior calf/leg where the incision . Wound care - Collagen hydrogel covered with adaptic to both the right knee and right posterior leg/calf ulcers. Patient would benefit from an advanced wound care product to help the the breakdown on her anterior leg to heal faster. We are waiting for approval for Epifix from her insurance.. Continue ROGER wrap for compression. Per Dr. Barton, she no longer needs to wear the knee brace. Currently on Doxycycline and Voriconazole from ID. Prealbumin from 11/30/19 was 24.7. Encourage nutritional supplementation with protein to help the healing process. Follow-up in 1 week. [id number]: [id number] Global Visit
[2020-02-13 08:16] LABS: Bedside Glucose 128 mg/dL (70-110)
[2020-02-13 08:16] LABS: Bedside Glucose 144 mg/dL (70-110)
[2020-02-13 10:20] LABS: Bedside Glucose 128 mg/dL (70-110)
[2020-02-13 11:05] VITALS: BP 127/63; BP 157/76; PULSE 81; PULSE 86; RESP 16; RESP 17; TEMP 35.8
--- NOTE | 2020-02-13 14:09 | HBO.PN.PCM_ITS ---
History of Present Illness Date of Service: 02/13/20 Presenting Chief Complaint: Nonhealing ulcer right inferior knee s/p polyethylene exchange and gastrocnemius muscle flap reconstruction on 11/29/19 - failing/compromised flap. RAJESH CARRENO is a 59 year old currently undergoing hyperbaric oxygen therapy for a failing/compromised right medial gastrocnemius muscular rotation flap. Progress: Today's session represents the 11th session of hyperbaric oxygen therapy, of an expected 20 such treatments. Tolerance of hyperbaric oxygen therapy: Hyperbaric oxygen therapy was administered as per the facility's protocol. Hyperbaric oxygen therapy was administered for 90 minutes at 2 tahir, with no air breaks. The patient tolerated hyperbaric oxygen therapy well, without complaints or complications. Upon emergence from the hyperbaric chamber, the patient's vital signs remained sta ble. The patient was discharged in good condition. Blood glucose levels before and after hyperbaric oxygen therapy are documented elsewhere. 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, sequela (Chronic) Nonhealing ulcer of right lower extremity with fat layer exposed (Chronic) Nonhealing ulcer right inferior knee by tibial tubercle History of DVT (deep vein thrombosis) (Chronic) Septic arthritis of knee, right (Chronic) Hx of total knee replacement (Chronic) right Restless leg (Chronic) RENNY (obstructive sleep apnea) (Chronic) Hypothyroidism (Chronic) Diverticulosis of colon without diverticulitis (Chronic) Depression (Chronic) Postphlebitic syndrome with inflammation (Chronic) Lumbar disc disease (Chronic) History of Graves' disease (Chronic) Diabetes mellitus (Chronic) Renal insufficiency (Chronic) Presence of IVC filter (Chronic) Obesity (Chronic) Edema leg (Chronic) Leg swelling (Chronic) DVT of lower extremity (deep venous thrombosis) (Chronic) Allergies/Adverse Reactions: Allergies hydrocodone bitartrate [From Lortab] Allergy (Intermediate, Verified 09/06/19 07:31) Other lips swell, ataxia etodolac Allergy (Verified 09/06/19 07:31) Unknown misoprostol Allergy (Verified 09/06/19 07:31) Unknown celecoxib Adverse Reaction (Intermediate, Verified 09/06/19 07:31) Other heart palpitations diclofenac [Diclofenac] Adverse Reaction (Mild, Verified 09/06/19 07:31) Abd cramps/diarrhea ketorolac tromethamine [From Toradol] Adverse Reaction (Mild, Verified 09/06/19 07:31) Other balance issues metoclopramide HCl [From Reglan] Adverse Reaction (Mild, Verified 09/06/19 07:31) Other worsens restless leg atorvastatin [From Lipitor] Adverse Reaction (Verified 09/06/19 07:31) Other FACE SPASMS clindamycin Adverse Reaction (Verified 09/06/19 07:31) Mucosal lesions Home Medications: Ambulatory Orders Medication Instructions Recorded Levothyroxine [Synthroid] 175 mcg PO DAILY 09/01/13 Omeprazole [Prilosec] 20 mg PO DAILY 12/13/16 Cholecalciferol (Vitamin D3) 5,000 unit PO DAILY@1200 01/25/17 [Vitamin D3] [place]-3 Fatty Acids/Fish Oil [Fish 2,000 mg PO LUNCH 03/21/18 Oil 1,000 mg Capsule] Gabapentin 800 mg PO BID 08/01/18 Gabapentin [Neurontin] 1,200 mg PO QHS 08/01/18 Lisinopril [Zestril] 10 mg PO LUNCH 08/01/18 Pramipexole Di-HCl [Pramipexole 1 mg PO LUNCH 08/01/18 Dihydrochloride] Pramipexole Di-HCl [Pramipexole 1.5 tab PO QHS 08/01/18 Dihydrochloride] Venlafaxine HCl [Effexor Xr] 1 tab PO DAILY 08/01/18 Venlafaxine HCl [Venlafaxine HCl 1 tab PO DAILY 08/01/18 ER] Aspirin [Aspir-Low] 81 mg PO LUNCH 05/02/19 Famotidine [Pepcid] 40 mg PO QHS 05/02/19 Ferrous Sulfate 325 mg PO DAILY 08/30/19 Ascorbic Acid [Vitamin C] 500 mg PO LUNCH 11/28/19 Doxycycline 100 mg PO BID 11/28/19 Montelukast [Singulair] 10 mg PO QHS 11/28/19 Pramipexole Di-HCl [Mirapex] 0.5 mg PO DAILY 11/28/19 Voriconazole 200 mg PO BID 11/28/19 Acetaminophen [Tylenol] 1,000 mg PO Q8 tab 12/04/19 Senna/Docusate Sodium [Senokot-S] 2 tab PO BID tab 12/04/19 Maternal Family History: Heart Disease, Hypertension Paternal Family History: Heart Disease, Hypertension Sibling Family History: Cancer, Diabetes, Hypertension, - Smoking Status: Former smoker Physical Exam Vital Signs Temp Pulse Resp BP 96.5 F L 86 17 157/76 H 02/13/20 11:05 02/13/20 11:05 02/13/20 11:05 02/13/20 11:05 General: Alert, Oriented x3, Cooperative, No apparent distress, Well developed, Well nourished HEENT: Atraumatic, PERRLA, EOMI, Normocephalic Lungs: Normal air movement Psych/Mental Status: Normal Affect, Appropriate, Alert and oriented to time, place, person, mood and affect Assessment/Plan Active Problems Chronic ulcer of right leg (Chronic) 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 Treatment Course Number Number of HBO Treatments 20 Ordered Treatment Course Number 1 Treatment # 11 Chamber # 1 Chamber Type Monoplace Diabetes - Detail Diabetes Diabetes Type II Other - Detail Compromised/Failed Flap/Graft Yes: right knee (specify site in comment) Treatment Plan PATRICIA (Atmospheric Absolute) 2 Number of Minutes 90 Number of Air Breaks 0
[2020-02-14 08:22] VITALS: BP 131/70; BP 134/71; PULSE 79; PULSE 84; RESP 16; RESP 17; TEMP 35.6; TEMP 36.1
[2020-02-14 09:01] LABS: Bedside Glucose 153 mg/dL (70-110)
[2020-02-14 10:35] LABS: Bedside Glucose 121 mg/dL (70-110)
--- NOTE | 2020-02-14 10:53 | HBO.PN.PCM_ITS ---
History of Present Illness Date of Service: 02/14/20 Presenting Chief Complaint: Nonhealing ulcer right inferior knee s/p polyethylene exchange and gastrocnemius muscle flap reconstruction on 11/29/19 - failing/compromised flap. RAJESH CARRENO is a 59 year old currently undergoing hyperbaric oxygen therapy for a failing/compromised right medial gastrocnemius muscular rotation flap. Progress: Today's session represents the 12th session of hyperbaric oxygen therapy, of an expected 20 such treatments. Tolerance of hyperbaric oxygen therapy: Hyperbaric oxygen therapy was administered as per the facility's protocol. Hyperbaric oxygen therapy was administered for 90 minutes at 2 tahir, with no air breaks. The patient tolerated hyperbaric oxygen therapy well, without complaints or complications. Upon emergence from the hyperbaric chamber, the patient's vital signs remained sta ble. The patient was discharged in good condition. Blood glucose levels before and after hyperbaric oxygen therapy are documented elsewhere. 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, sequela (Chronic) Nonhealing ulcer of right lower extremity with fat layer exposed (Chronic) Nonhealing ulcer right inferior knee by tibial tubercle History of DVT (deep vein thrombosis) (Chronic) Septic arthritis of knee, right (Chronic) Hx of total knee replacement (Chronic) right Restless leg (Chronic) RENNY (obstructive sleep apnea) (Chronic) Hypothyroidism (Chronic) Diverticulosis of colon without diverticulitis (Chronic) Depression (Chronic) Postphlebitic syndrome with inflammation (Chronic) Lumbar disc disease (Chronic) History of Graves' disease (Chronic) Diabetes mellitus (Chronic) Renal insufficiency (Chronic) Presence of IVC filter (Chronic) Obesity (Chronic) Edema leg (Chronic) Leg swelling (Chronic) DVT of lower extremity (deep venous thrombosis) (Chronic) Allergies/Adverse Reactions: Allergies hydrocodone bitartrate [From Lortab] Allergy (Intermediate, Verified 09/06/19 07:31) Other lips swell, ataxia etodolac Allergy (Verified 09/06/19 07:31) Unknown misoprostol Allergy (Verified 09/06/19 07:31) Unknown celecoxib Adverse Reaction (Intermediate, Verified 09/06/19 07:31) Other heart palpitations diclofenac [Diclofenac] Adverse Reaction (Mild, Verified 09/06/19 07:31) Abd cramps/diarrhea ketorolac tromethamine [From Toradol] Adverse Reaction (Mild, Verified 09/06/19 07:31) Other balance issues metoclopramide HCl [From Reglan] Adverse Reaction (Mild, Verified 09/06/19 07:31) Other worsens restless leg atorvastatin [From Lipitor] Adverse Reaction (Verified 09/06/19 07:31) Other FACE SPASMS clindamycin Adverse Reaction (Verified 09/06/19 07:31) Mucosal lesions Home Medications: Ambulatory Orders Medication Instructions Recorded Levothyroxine [Synthroid] 175 mcg PO DAILY 09/01/13 Omeprazole [Prilosec] 20 mg PO DAILY 12/13/16 Cholecalciferol (Vitamin D3) 5,000 unit PO DAILY@1200 01/25/17 [Vitamin D3] [place]-3 Fatty Acids/Fish Oil [Fish 2,000 mg PO LUNCH 03/21/18 Oil 1,000 mg Capsule] Gabapentin 800 mg PO BID 08/01/18 Gabapentin [Neurontin] 1,200 mg PO QHS 08/01/18 Lisinopril [Zestril] 10 mg PO LUNCH 08/01/18 Pramipexole Di-HCl [Pramipexole 1 mg PO LUNCH 08/01/18 Dihydrochloride] Pramipexole Di-HCl [Pramipexole 1.5 tab PO QHS 08/01/18 Dihydrochloride] Venlafaxine HCl [Effexor Xr] 1 tab PO DAILY 08/01/18 Venlafaxine HCl [Venlafaxine HCl 1 tab PO DAILY 08/01/18 ER] Aspirin [Aspir-Low] 81 mg PO LUNCH 05/02/19 Famotidine [Pepcid] 40 mg PO QHS 05/02/19 Ferrous Sulfate 325 mg PO DAILY 08/30/19 Ascorbic Acid [Vitamin C] 500 mg PO LUNCH 11/28/19 Doxycycline 100 mg PO BID 11/28/19 Montelukast [Singulair] 10 mg PO QHS 11/28/19 Pramipexole Di-HCl [Mirapex] 0.5 mg PO DAILY 11/28/19 Voriconazole 200 mg PO BID 11/28/19 Acetaminophen [Tylenol] 1,000 mg PO Q8 tab 12/04/19 Senna/Docusate Sodium [Senokot-S] 2 tab PO BID tab 12/04/19 Maternal Family History: Heart Disease, Hypertension Paternal Family History: Heart Disease, Hypertension Sibling Family History: Cancer, Diabetes, Hypertension, - Smoking Status: Former smoker Physical Exam Vital Signs Temp Pulse Resp BP 96.9 F L 84 17 134/71 H 02/14/20 08:22 02/14/20 08:22 02/14/20 08:22 02/14/20 08:22 Assessment/Plan Active Problems Chronic ulcer of right leg (Chronic) 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 Treatment Course Number Number of HBO Treatments 20 Ordered Treatment Course Number 1 Treatment # 11 Chamber # 1 Chamber Type Monoplace Diabetes - Detail Diabetes Diabetes Type II Other - Detail Compromised/Failed Flap/Graft Yes: right knee (specify site in comment) Treatment Plan PATRICIA (Atmospheric Absolute) 2 Number of Minutes 90 Number of Air Breaks 0
[2020-02-15 08:10] LABS: Bedside Glucose 180 mg/dL (70-110)
[2020-02-15 08:23] VITALS: BP 109/50; BP 145/52; PULSE 78; PULSE 92; RESP 16; TEMP 35.3
[2020-02-15 10:20] LABS: Bedside Glucose 134 mg/dL (70-110)
--- NOTE | 2020-02-15 10:49 | HBO.PN.PCM_ITS ---
History of Present Illness Date of Service: 02/15/20 Presenting Chief Complaint: Nonhealing ulcer right inferior knee s/p polyethylene exchange and gastrocnemius muscle flap reconstruction on 11/29/19 - failing/compromised flap. RAJESH CARRENO is a 59 year old currently undergoing hyperbaric oxygen therapy for a failing/compromised right medial gastrocnemius muscular rotation flap. Progress: Today's session represents the 13th session of hyperbaric oxygen therapy, of an expected 20 such treatments. Tolerance of hyperbaric oxygen therapy: Hyperbaric oxygen therapy was administered as per the facility's protocol. Hyperbaric oxygen therapy was administered for 90 minutes at 2 tahir, with no air breaks. The patient tolerated hyperbaric oxygen therapy well, without complaints or complications. Upon emergence from the hyperbaric chamber, the patient's vital signs remained sta ble. The patient was discharged in good condition. Blood glucose levels before and after hyperbaric oxygen therapy are documented elsewhere. 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, sequela (Chronic) Nonhealing ulcer of right lower extremity with fat layer exposed (Chronic) Nonhealing ulcer right inferior knee by tibial tubercle History of DVT (deep vein thrombosis) (Chronic) Septic arthritis of knee, right (Chronic) Hx of total knee replacement (Chronic) right Restless leg (Chronic) RENNY (obstructive sleep apnea) (Chronic) Hypothyroidism (Chronic) Diverticulosis of colon without diverticulitis (Chronic) Depression (Chronic) Postphlebitic syndrome with inflammation (Chronic) Lumbar disc disease (Chronic) History of Graves' disease (Chronic) Diabetes mellitus (Chronic) Renal insufficiency (Chronic) Presence of IVC filter (Chronic) Obesity (Chronic) Edema leg (Chronic) Leg swelling (Chronic) DVT of lower extremity (deep venous thrombosis) (Chronic) Allergies/Adverse Reactions: Allergies hydrocodone bitartrate [From Lortab] Allergy (Intermediate, Verified 09/06/19 07:31) Other lips swell, ataxia etodolac Allergy (Verified 09/06/19 07:31) Unknown misoprostol Allergy (Verified 09/06/19 07:31) Unknown celecoxib Adverse Reaction (Intermediate, Verified 09/06/19 07:31) Other heart palpitations diclofenac [Diclofenac] Adverse Reaction (Mild, Verified 09/06/19 07:31) Abd cramps/diarrhea ketorolac tromethamine [From Toradol] Adverse Reaction (Mild, Verified 09/06/19 07:31) Other balance issues metoclopramide HCl [From Reglan] Adverse Reaction (Mild, Verified 09/06/19 07:31) Other worsens restless leg atorvastatin [From Lipitor] Adverse Reaction (Verified 09/06/19 07:31) Other FACE SPASMS clindamycin Adverse Reaction (Verified 09/06/19 07:31) Mucosal lesions Home Medications: Ambulatory Orders Medication Instructions Recorded Levothyroxine [Synthroid] 175 mcg PO DAILY 09/01/13 Omeprazole [Prilosec] 20 mg PO DAILY 12/13/16 Cholecalciferol (Vitamin D3) 5,000 unit PO DAILY@1200 01/25/17 [Vitamin D3] [place]-3 Fatty Acids/Fish Oil [Fish 2,000 mg PO LUNCH 03/21/18 Oil 1,000 mg Capsule] Gabapentin 800 mg PO BID 08/01/18 Gabapentin [Neurontin] 1,200 mg PO QHS 08/01/18 Lisinopril [Zestril] 10 mg PO LUNCH 08/01/18 Pramipexole Di-HCl [Pramipexole 1 mg PO LUNCH 08/01/18 Dihydrochloride] Pramipexole Di-HCl [Pramipexole 1.5 tab PO QHS 08/01/18 Dihydrochloride] Venlafaxine HCl [Effexor Xr] 1 tab PO DAILY 08/01/18 Venlafaxine HCl [Venlafaxine HCl 1 tab PO DAILY 08/01/18 ER] Aspirin [Aspir-Low] 81 mg PO LUNCH 05/02/19 Famotidine [Pepcid] 40 mg PO QHS 05/02/19 Ferrous Sulfate 325 mg PO DAILY 08/30/19 Ascorbic Acid [Vitamin C] 500 mg PO LUNCH 11/28/19 Doxycycline 100 mg PO BID 11/28/19 Montelukast [Singulair] 10 mg PO QHS 11/28/19 Pramipexole Di-HCl [Mirapex] 0.5 mg PO DAILY 11/28/19 Voriconazole 200 mg PO BID 11/28/19 Acetaminophen [Tylenol] 1,000 mg PO Q8 tab 12/04/19 Senna/Docusate Sodium [Senokot-S] 2 tab PO BID tab 12/04/19 Maternal Family History: Heart Disease, Hypertension Paternal Family History: Heart Disease, Hypertension Sibling Family History: Cancer, Diabetes, Hypertension, - Smoking Status: Former smoker Physical Exam Vital Signs Temp Pulse Resp BP 95.5 F L 78 16 145/52 H 02/15/20 08:23 02/15/20 08:23 02/15/20 08:23 02/15/20 08:23 General: Alert, Oriented x3, Cooperative, No apparent distress HEENT: Atraumatic, Normocephalic Lungs: Normal air movement Psych/Mental Status: Normal Affect Assessment/Plan Active Problems Chronic ulcer of right leg (Chronic) 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 Treatment Course Number Number of HBO Treatments 20 Ordered Treatment Course Number 1 Treatment # 13 Chamber # 1 Chamber Type Monoplace Diabetes - Detail Diabetes Diabetes Type II Other - Detail Compromised/Failed Flap/Graft Yes: right knee (specify site in comment) Treatment Plan PATRICIA (Atmospheric Absolute) 2 Number of Minutes 90 Number of Air Breaks 0 HBO Supervision
--- NOTE | 2020-02-16 08:43 | HBO.PN.PCM_ITS ---
History of Present Illness Date of Service: 02/16/20 Presenting Chief Complaint: Nonhealing ulcer right inferior knee s/p polyethylene exchange and gastrocnemius muscle flap reconstruction on 11/29/19 - failing/compromised flap. RAJESH CARRENO is a 59 year old currently undergoing hyperbaric oxygen therapy for a failing/compromised right medial gastrocnemius muscular rotation flap. Progress: Today's session represents the 14th session of hyperbaric oxygen therapy, of an expected 20 such treatments. Tolerance of hyperbaric oxygen therapy: Hyperbaric oxygen therapy was administered as per the facility's protocol. Hyperbaric oxygen therapy was administered for 84 minutes at 2 tahir, with no air breaks. The patient tolerated hyperbaric oxygen therapy Fair, her treatment was ended 6 minutes early because she was complaining of nausea and headache. Once the diet was ended the headache was completely resolved. Nausea continued, patient's blood glucose level was 208, which is higher than normal for her. She admits that she did not eat her normal breakfast of a bagel and eggs. This morning she had cereal and a bagel, she reports that she does not typically tolerate having a high blood glucose and believes that the nausea is related to that. Upon emergence from the hyperbaric chamber, the patient's vital signs remained stable. The patient was discharged in good condition. Blood glucose levels before and after hyperbaric oxygen therapy are documented elsewhere. 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, sequela (Chronic) Nonhealing ulcer of right lower extremity with fat layer exposed (Chronic) Nonhealing ulcer right inferior knee by tibial tubercle History of DVT (deep vein thrombosis) (Chronic) Septic arthritis of knee, right (Chronic) Hx of total knee replacement (Chronic) right Restless leg (Chronic) RENNY (obstructive sleep apnea) (Chronic) Hypothyroidism (Chronic) Diverticulosis of colon without diverticulitis (Chronic) Depression (Chronic) Postphlebitic syndrome with inflammation (Chronic) Lumbar disc disease (Chronic) History of Graves' disease (Chronic) Diabetes mellitus (Chronic) Renal insufficiency (Chronic) Presence of IVC filter (Chronic) Obesity (Chronic) Edema leg (Chronic) Leg swelling (Chronic) DVT of lower extremity (deep venous thrombosis) (Chronic) Allergies/Adverse Reactions: Allergies hydrocodone bitartrate [From Lortab] Allergy (Intermediate, Verified 09/06/19 07:31) Other lips swell, ataxia etodolac Allergy (Verified 09/06/19 07:31) Unknown misoprostol Allergy (Verified 09/06/19 07:31) Unknown celecoxib Adverse Reaction (Intermediate, Verified 09/06/19 07:31) Other heart palpitations diclofenac [Diclofenac] Adverse Reaction (Mild, Verified 09/06/19 07:31) Abd cramps/diarrhea ketorolac tromethamine [From Toradol] Adverse Reaction (Mild, Verified 09/06/19 07:31) Other balance issues metoclopramide HCl [From Reglan] Adverse Reaction (Mild, Verified 09/06/19 07:31) Other worsens restless leg atorvastatin [From Lipitor] Adverse Reaction (Verified 09/06/19 07:31) Other FACE SPASMS clindamycin Adverse Reaction (Verified 09/06/19 07:31) Mucosal lesions Home Medications: Ambulatory Orders Medication Instructions Recorded Levothyroxine [Synthroid] 175 mcg PO DAILY 09/01/13 Omeprazole [Prilosec] 20 mg PO DAILY 12/13/16 Cholecalciferol (Vitamin D3) 5,000 unit PO DAILY@1200 01/25/17 [Vitamin D3] [place]-3 Fatty Acids/Fish Oil [Fish 2,000 mg PO LUNCH 03/21/18 Oil 1,000 mg Capsule] Gabapentin 800 mg PO BID 08/01/18 Gabapentin [Neurontin] 1,200 mg PO QHS 08/01/18 Lisinopril [Zestril] 10 mg PO LUNCH 08/01/18 Pramipexole Di-HCl [Pramipexole 1 mg PO LUNCH 08/01/18 Dihydrochloride] Pramipexole Di-HCl [Pramipexole 1.5 tab PO QHS 08/01/18 Dihydrochloride] Venlafaxine HCl [Effexor Xr] 1 tab PO DAILY 08/01/18 Venlafaxine HCl [Venlafaxine HCl 1 tab PO DAILY 08/01/18 ER] Aspirin [Aspir-Low] 81 mg PO LUNCH 05/02/19 Famotidine [Pepcid] 40 mg PO QHS 05/02/19 Ferrous Sulfate 325 mg PO DAILY 08/30/19 Ascorbic Acid [Vitamin C] 500 mg PO LUNCH 11/28/19 Doxycycline 100 mg PO BID 11/28/19 Montelukast [Singulair] 10 mg PO QHS 11/28/19 Pramipexole Di-HCl [Mirapex] 0.5 mg PO DAILY 11/28/19 Voriconazole 200 mg PO BID 11/28/19 Acetaminophen [Tylenol] 1,000 mg PO Q8 tab 12/04/19 Senna/Docusate Sodium [Senokot-S] 2 tab PO BID tab 12/04/19 Maternal Family History: Heart Disease, Hypertension Paternal Family History: Heart Disease, Hypertension Sibling Family History: Cancer, Diabetes, Hypertension, - Smoking Status: Former smoker Physical Exam Vital Signs Temp Pulse Resp BP 95.5 F L 78 16 145/52 H 02/15/20 08:23 02/15/20 08:23 02/15/20 08:23 02/15/20 08:23 General: Alert, Oriented x3, Cooperative HEENT: Atraumatic, TM's Clear Lungs: Clear to auscultation, Normal air movement Cardiovascular: Regular rate, Regular Rhythm Psych/Mental Status: Normal Affect, Appropriate, Alert and oriented to time, place, person, mood and affect Assessment/Plan Active Problems Chronic ulcer of right leg (Chronic) 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
[2020-02-16 09:54] VITALS: BP 134/71; BP 146/82; PULSE 83; PULSE 84; RESP 16; RESP 17; TEMP 35.3; TEMP 35.6
[2020-02-16 10:31] LABS: Bedside Glucose 209 mg/dL (70-110)
[2020-02-16 10:31] LABS: Bedside Glucose 206 mg/dL (70-110)
--- NOTE | 2020-02-19 08:22 | PCM.HBO.PN ---
History of Present Illness Date of Service: 02/19/20 Presenting Chief Complaint: Nonhealing ulcer right inferior knee s/p polyethylene exchange and gastrocnemius muscle flap reconstruction on 11/29/19 - failing/compromised flap. RAJESH CARRENO is a 59 year old currently undergoing hyperbaric oxygen therapy for a failing/compromised right medial gastrocnemius muscular rotation flap. Progress: Today's session represents the 15th session of hyperbaric oxygen therapy, of an expected 20 such treatments. Tolerance of hyperbaric oxygen therapy: Hyperbaric oxygen therapy was administered as per the facility's protocol. Hyperbaric oxygen therapy was administered for 90 minutes at 2 tahir, with no air breaks. The patient tolerated hyperbaric oxygen therapy well. Upon emergence from the hyperbaric chamber, the patient's vital signs remained stable. The patient was discharged in good condition. Blood glucose levels before and after hyperbaric oxygen therapy are documented elsewhere. 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, sequela (Chronic) Nonhealing ulcer of right lower extremity with fat layer exposed (Chronic) Nonhealing ulcer right inferior knee by tibial tubercle History of DVT (deep vein thrombosis) (Chronic) Septic arthritis of knee, right (Chronic) Hx of total knee replacement (Chronic) right Restless leg (Chronic) RENNY (obstructive sleep apnea) (Chronic) Hypothyroidism (Chronic) Diverticulosis of colon without diverticulitis (Chronic) Depression (Chronic) Postphlebitic syndrome with inflammation (Chronic) Lumbar disc disease (Chronic) History of Graves' disease (Chronic) Diabetes mellitus (Chronic) Renal insufficiency (Chronic) Presence of IVC filter (Chronic) Obesity (Chronic) Edema leg (Chronic) Leg swelling (Chronic) DVT of lower extremity (deep venous thrombosis) (Chronic) Allergies/Adverse Reactions: Allergies hydrocodone bitartrate [From Lortab] Allergy (Intermediate, Verified 09/06/19 07:31) Other lips swell, ataxia etodolac Allergy (Verified 09/06/19 07:31) Unknown misoprostol Allergy (Verified 09/06/19 07:31) Unknown celecoxib Adverse Reaction (Intermediate, Verified 09/06/19 07:31) Other heart palpitations diclofenac [Diclofenac] Adverse Reaction (Mild, Verified 09/06/19 07:31) Abd cramps/diarrhea ketorolac tromethamine [From Toradol] Adverse Reaction (Mild, Verified 09/06/19 07:31) Other balance issues metoclopramide HCl [From Reglan] Adverse Reaction (Mild, Verified 09/06/19 07:31) Other worsens restless leg atorvastatin [From Lipitor] Adverse Reaction (Verified 09/06/19 07:31) Other FACE SPASMS clindamycin Adverse Reaction (Verified 09/06/19 07:31) Mucosal lesions Home Medications: Ambulatory Orders Medication Instructions Recorded Levothyroxine [Synthroid] 175 mcg PO DAILY 09/01/13 Omeprazole [Prilosec] 20 mg PO DAILY 12/13/16 Cholecalciferol (Vitamin D3) 5,000 unit PO DAILY@1200 01/25/17 [Vitamin D3] Gratz-3 Fatty Acids/Fish Oil [Fish 2,000 mg PO LUNCH 03/21/18 Oil 1,000 mg Capsule] Gabapentin 800 mg PO BID 08/01/18 Gabapentin [Neurontin] 1,200 mg PO QHS 08/01/18 Lisinopril [Zestril] 10 mg PO LUNCH 08/01/18 Pramipexole Di-HCl [Pramipexole 1 mg PO LUNCH 08/01/18 Dihydrochloride] Pramipexole Di-HCl [Pramipexole 1.5 tab PO QHS 08/01/18 Dihydrochloride] Venlafaxine HCl [Effexor Xr] 1 tab PO DAILY 08/01/18 Venlafaxine HCl [Venlafaxine HCl 1 tab PO DAILY 08/01/18 ER] Aspirin [Aspir-Low] 81 mg PO LUNCH 05/02/19 Famotidine [Pepcid] 40 mg PO QHS 05/02/19 Ferrous Sulfate 325 mg PO DAILY 08/30/19 Ascorbic Acid [Vitamin C] 500 mg PO LUNCH 11/28/19 Doxycycline 100 mg PO BID 11/28/19 Montelukast [Singulair] 10 mg PO QHS 11/28/19 Pramipexole Di-HCl [Mirapex] 0.5 mg PO DAILY 11/28/19 Voriconazole 200 mg PO BID 11/28/19 Acetaminophen [Tylenol] 1,000 mg PO Q8 tab 12/04/19 Senna/Docusate Sodium [Senokot-S] 2 tab PO BID tab 12/04/19 Maternal Family History: Heart Disease, Hypertension Paternal Family History: Heart Disease, Hypertension Sibling Family History: Cancer, Diabetes, Hypertension, - Smoking Status: Former smoker Physical Exam Vital Signs Temp Pulse Resp BP 95.5 F L 84 17 146/82 H 02/16/20 09:54 02/16/20 09:54 02/16/20 09:54 02/16/20 09:54 General: Alert, Oriented x3, Cooperative, No apparent distress HEENT: Atraumatic, TM's Clear Lungs: Clear to auscultation, Normal air movement Cardiovascular: Regular rate, Regular Rhythm Psych/Mental Status: Normal Affect, Appropriate, Alert and oriented to time, place, person, mood and affect Assessment/Plan Active Problems Chronic ulcer of right leg (Chronic) 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
[2020-02-19 08:31] VITALS: BP 130/76; BP 133/71; PULSE 81; PULSE 89; RESP 16; RESP 17; TEMP 35; TEMP 36.6
[2020-02-19 10:00] LABS: Bedside Glucose 199 mg/dL (70-110)
[2020-02-19 10:10] LABS: Bedside Glucose 179 mg/dL (70-110)
[2020-02-19 10:11] VITALS: BP 133/71; PULSE 81; TEMP 36.6; BMI 45.3
--- NOTE | 2020-02-19 16:01 | PN.PCM_ITS ---
Type of Wound Date of Service: 02/19/20 Chief Complaint: Nonhealing ulcer right inferior knee s/p polyethylene exchange and gastrocnemius muscle flap reconstruction on 11/29/19 with compromise to the overlying skin graft and nonhealing ulcer right posterior leg. History of Wound: Surgery 11/29/19 - Irrigation debridement with polyethylene exchange right total knee and excision sinus tract right knee by Dr Barton. 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 Lazaro. Wound care - Collagen Hydrogel. Operative culture - negative. Currently on Doxycycline and Voriconazole. Prealbumin on 11/30/19 was 24.7. Encourage nutritional supplementation with protein to help the healing process. Today she denies fever. Her appetite is good. She is ambulating ok. She doesn't need the knee brace and occasionally will use the walker. She has burning nerve pain and tingling in the area of the sural nerve distribution. She is noticing improvement with the Neurontin. She has started HBO treatments for compromise to the skin graft and is tolerating the treatments. Progress of Wound: Patient tolerating HBOT well for her compromised skin graft. Muscle flap is healed. Skin graft/ulcer on right knee is improved. Nonhealing ulcer right posterior leg is improved. - Physical Exam Vital Signs Temp Pulse Resp BP 97.8 F 81 17 133/71 H 02/19/20 10:11 02/19/20 10:11 02/19/20 08:31 02/19/20 10:11 Wound Measurements and Assessment WC - Nurse 1 - General Ulcer Measurement Start: 02/05/20 10:21 Freq: Status: Active Protocol: Activity Type Activity Date Activity User E-Sign Co-Sign Detail Recorded Client Recorded Date Recorded By Document 02/19/20 10:11 ISAAC [id number] 02/19/20 10:16 ISAAC 02/19/20 10:11 Wound Center Nurse 1 [Ulcer Assessment] #4 R Post calf -Combined with other wound No -Current Size (cm) - Length 8.7 -Current Size (cm) - Width 4.3 -Current Size (cm) - Depth 0.2 -Total Square Cm 37.41 -Photo Taken No -Epithelialization Small 1-33% -Tunneling No -Undermining/Tunneling No -Circular Undermining No -Exudate Amt Small -Exudate Type Serosanguineous -Wound Margin Distinct, Outline Attached -Granulation Amt Medium (34-66%) -Granulation Quality [place],Red -Slough/Fibrin Yes -Necrosis Amt Medium (34-66%) -Necrotic Tissue Type Adherent Slough -Texture (Aileen-wound Skin Appearance) Assessed, Scarring -Moisture (Aileen-wound Skin Appearance No Abnormality, ) Assessed -Color (Aileen-wound Skin Appearance) No Abnormality -Temperature (Aileen-wound Skin No Abnormality Appearance) (Pt Warm) -Tenderness on Palpation (Aileen-wound No Skin Appearance) -Ulcer Cleansing Rinsed/ Irrigated with Saline -Anesthetic Used 4% Lidocaine Solution 3-right knee graft site -Current Size (cm) - Length 6.8 -Current Size (cm) - Width 1.1 -Current Size (cm) - Depth 0.5 -Total Square Cm 7.48 -Photo Taken No -Epithelialization Small 1-33% -Tunneling No -Undermining/Tunneling No -Circular Undermining No -Exudate Amt Small -Exudate Type Serosanguineous -Wound Margin Distinct, Outline Attached -Granulation Amt Medium (34-66%) -Granulation Quality [place],Red -Necrotic Tissue Type Adherent Slough -Texture (Aileen-wound Skin Appearance) Scarring -Moisture (Aileen-wound Skin Appearance No Abnormality ) -Color (Aileen-wound Skin Appearance) No Abnormality -Temperature (Aileen-wound Skin No Abnormality Appearance) (Pt Warm) -Tenderness on Palpation (Aileen-wound No Skin Appearance) -Ulcer Cleansing Rinsed/ Irrigated with Saline -Foul Odor after Cleansing No -Anesthetic Used 4% Lidocaine Solution RAF - Nurse 2 - General Ulcer CM Notes Start: 02/05/20 10:21 Freq: Status: Active Protocol: Activity Type Activity Date Activity User E-Sign Co-Sign Detail Recorded Client Recorded Date Recorded By Document 02/19/20 10:30 ALETA [id number] 02/19/20 10:33 ALETA 02/19/20 10:30 Wound Center Nurse 2 [Procedure/Treatment] #4 R Post calf -Time 10:30 -Correct Patient Yes -Correct Side, Site, Position Yes -Correct Procedure Yes -Procedure Performed Yes -Type of Procedure Debridement -Clinical Debridement Subcutaneous -Tissue Removed Subcutaneous -Post Debridement (cm) - Length 2.5 -Post Debridement (cm) - Width 0.8 -Post Debridement (cm) - Depth 0.5 -Total Square (Post) (cm) 2.00 -Area of Debridement (cm) - Length 2.5 -Area of Debridement (cm) - Width 0.8 -Total Square (Area) (cm) 2.00 -Tunneling No -Undermining/Tunneling No -Circular Undermining No -Wound/Ulcer Outcome Not Healed -Ulcer Cleansing Rinsed/ Irrigated with Saline -Foul Odor after Cleansing No -Bioengineered Tissue No -Bleeding Controlled with Pressure -Offloading No -Treatment Response Procedure Tolerated Well -Debridement - Subq, 1st 20sq cm No 3-right knee graft site -Time 10:30 -Correct Patient Yes -Correct Side, Site, Position Yes -Correct Procedure Yes -Procedure Performed Yes -Type of Procedure Debridement -Clinical Debridement Subcutaneous -Tissue Removed Subcutaneous -Post Debridement (cm) - Length 9.2 -Post Debridement (cm) - Width 4.2 -Post Debridement (cm) - Depth 0.2 -Total Square (Post) (cm) 38.64 -Area of Debridement (cm) - Length 9.2 -Area of Debridement (cm) - Width 4.0 -Total Square (Area) (cm) 36.80 -Tunneling No -Undermining/Tunneling No -Circular Undermining No -Wound/Ulcer Outcome Not Healed -Ulcer Cleansing Rinsed/ Irrigated with Saline -Foul Odor after Cleansing No -Bioengineered Tissue No -Bleeding Controlled with Pressure -Offloading No -Treatment Response Procedure Tolerated Well -Debridement - Subq, 1st 20sq cm Yes -Debridement, SubQ, ea addt'l 20sq cm 1 or part thereof [See Physician Procedure note for Specifics] Pain Scale: 0-10 Numeric [Pain] -Is Patient Pain Free? Yes WC - Nurse 3 - General Ulcer D/C NN Start: 02/05/20 10:21 Freq: Status: Active Protocol: Activity Type Activity Date Activity User E-Sign Co-Sign Detail Recorded Client Recorded Date Recorded By Document 02/19/20 10:44 DL [id number] 02/19/20 10:45 DL 02/19/20 10:44 Wound Care Nurse 3 [Wound Dressing] #4 R Post calf -Ulcer Cleansing Rinsed/ Irrigated with Saline -Foul Odor after Cleansing No -Primary Dressing Applied C Hydrogel ($) -Primary Dressing Covered/Secured Dry Gauze & with Roll Gauze, Secured with Tape -Other Covering ABD/FLOYD 3-right knee graft site -Ulcer Cleansing Rinsed/ Irrigated with Saline -Foul Odor after Cleansing No -Other Dressing HYDROGEL -Other Covering ABD/FLOYD [Post Procedure Tolerated] -Treatment Response Procedure Tolerated Well Pain Scale: 0-10 Numeric [Pain] -Is Patient Pain Free? Yes - Visit Discharge [Visit Discharge Information] -Discharge Condition Stable -Ambulatory Status Ambulatory -Transportation Private Auto -Notes: Dressing applied per Regional Branch Manager today. Debridement Note Post-Debridement Measurements/Treatment - Nurse 2 - General Ulcer CM Notes Start: 02/05/20 10:21 Freq: Status: Active Protocol: Activity Type Activity Date Activity User E-Sign Co-Sign Detail Recorded Client Recorded Date Recorded By Document 02/05/20 10:49 [id number] 02/05/20 11:01 Document 02/12/20 10:58 [id number] 02/12/20 11:03 Document 02/19/20 10:30 [id number] 02/19/20 10:33 02/05/20 02/12/20 02/19/20 10:49 10:58 10:30 Wound Center Nurse 2 #4 R Post calf -Time 10:53 10:58 10:30 -Correct Patient Yes Yes Yes -Correct Side, Site, Position Yes Yes Yes -Correct Procedure Yes Yes Yes -Procedure Performed Yes Yes Yes -Type of Procedure Debridement Debridement Debridement -Clinical Debridement Subcutaneous Subcutaneous Subcutaneous -Tissue Removed Subcutaneous Subcutaneous Subcutaneous -Post Debridement (cm) - Length 3.3 3.2 2.5 -Post Debridement (cm) - Width 1.0 1.0 0.8 -Post Debridement (cm) - Depth 0.5 0.6 0.5 -Total Square (Post) (cm) 3.30 3.20 2.00 -Area of Debridement (cm) - Length 3.3 3.0 2.5 -Area of Debridement (cm) - Width 1.0 1.0 0.8 -Total Square (Area) (cm) 3.30 3.00 2.00 -Tunneling No No No -Undermining/Tunneling No No No -Circular Undermining No No No -Wound/Ulcer Outcome Not Healed Not Healed Not Healed -Ulcer Cleansing Rinsed/ Rinsed/ Rinsed/ Irrigated with Irrigated with Irrigated with Saline Saline Saline -Foul Odor after Cleansing No No No -Bioengineered Tissue No No No -Bleeding Controlled with Pressure Pressure Pressure -Offloading No No No -Treatment Response Procedure Procedure Procedure Tolerated Well Tolerated Well Tolerated Well -Debridement - Subq, 1st 20sq cm No No No 3-right knee graft site -Time 10:50 10:59 10:30 -Correct Patient Yes Yes Yes -Correct Side, Site, Position Yes Yes Yes -Correct Procedure Yes Yes Yes -Procedure Performed Yes Yes Yes -Type of Procedure Debridement Debridement Debridement -Clinical Debridement Subcutaneous Subcutaneous Subcutaneous -Tissue Removed Subcutaneous Subcutaneous Subcutaneous -Post Debridement (cm) - Length 9.3 9.0 9.2 -Post Debridement (cm) - Width 4.5 4.3 4.2 -Post Debridement (cm) - Depth 0.2 0.2 0.2 -Total Square (Post) (cm) 41.85 38.70 38.64 -Area of Debridement (cm) - Length 9.3 9.0 9.2 -Area of Debridement (cm) - Width 4.5 4.3 4.0 -Total Square (Area) (cm) 41.85 38.70 36.80 -Tunneling No No No -Undermining/Tunneling No No No -Circular Undermining No No No -Wound/Ulcer Outcome Not Healed Not Healed Not Healed -Ulcer Cleansing Rinsed/ Rinsed/ Rinsed/ Irrigated with Irrigated with Irrigated with Saline Saline Saline -Foul Odor after Cleansing No No No -Bioengineered Tissue No No No -Bleeding Controlled with Pressure Pressure Pressure -Offloading No No No -Treatment Response Procedure Procedure Procedure Tolerated Well Tolerated Well Tolerated Well -Debridement - Subq, 1st 20sq cm Yes Yes Yes -Debridement, SubQ, ea addt'l 20sq cm 2 2 1 or part thereof Pain Scale: 0-10 Numeric Is Patient Pain Free? Yes Yes Yes - Nurse 3 - General Ulcer D/C NN Start: 02/05/20 10:21 Freq: Status: Active Protocol: Activity Type Activity Date Activity User E-Sign Co-Sign Detail Recorded Client Recorded Date Recorded By Document 02/05/20 11:16 [facility] [id number] 02/05/20 11:18 [facility] Document 02/06/20 10:19 [id number] 02/06/20 10:22 JF Document 02/09/20 10:25 JF [id number] 02/09/20 10:29 JF Document 02/12/20 11:12 [facility] [id number] 02/12/20 11:13 BMF Document 02/13/20 11:05 MS [id number] 02/13/20 11:21 MS Document 02/19/20 10:44 DL [id number] 02/19/20 10:45 DL 02/05/20 02/06/20 02/09/20 11:16 10:19 10:25 Wound Care Nurse 3 #4 R Post calf -Ulcer Cleansing Rinsed/ Irrigated with Saline -Foul Odor after Cleansing No -Primary Dressing Applied NonAdherent Contact Layer, Promogran Tayla Matter -Primary Dressing Covered/Secured with Dry Gauze & Roll Gauze, Secured with Tape,Other -Other Covering abd -Promogran Tayla Matter 2 3-right knee graft site -Ulcer Cleansing Rinsed/ Irrigated with Saline -Foul Odor after Cleansing No -Primary Dressing Applied NonAdherent Contact Layer, Promogran Tayla Matter -Other Dressing -Primary Dressing Covered/Secured with Dry Gauze & Roll Gauze, Secured with Tape,Other -Other Covering abd -Promogran Tayla Matter 0 Right -Compression Wrap Treatment Response Procedure Tolerated Well Vital Signs Pulse Rate (60-100) 75 Pulse Location Monitor Respiratory Rate (12-18) 16 Respiratory rate source Observation Oxygen Delivery Method Room Air Blood Pressure (90/60-120/80) 147/96 H Blood Pressure Mean (mm Hg) 113 Source Monitor Position Sitting Pain Scale: 0-10 Numeric Is Patient Pain Free? Yes Yes Yes WC - Visit Discharge Discharge Condition Stable Stable Stable Ambulatory Status Ambulatory Ambulatory Ambulatory Transportation Private Auto Private Auto Private Auto Accompanied by hospital transportation Medication Reconcilliation completed & No Yes provided to patient/care provider Clinical Summary of Care Provided No Yes Notes: 02/12/20 02/13/20 02/19/20 11:12 11:05 10:44 Wound Care Nurse 3 #4 R Post calf -Ulcer Cleansing Rinsed/ Rinsed/ Irrigated with Irrigated with Saline Saline -Foul Odor after Cleansing No No -Primary Dressing Applied C Hydrogel ($), C Hydrogel ($) NonAdherent Contact Layer -Primary Dressing Covered/Secured with Dry Gauze & Dry Gauze & Roll Gauze, Roll Gauze, Secured with Secured with Tape,Other Tape -Other Covering abd ABD/FLOYD -Promogran Tayla Matter 3-right knee graft site -Ulcer Cleansing Rinsed/ Rinsed/ Irrigated with Irrigated with Saline Saline -Foul Odor after Cleansing No No -Primary Dressing Applied NonAdherent Contact Layer, Other -Other Dressing hydrogel HYDROGEL -Primary Dressing Covered/Secured with Dry Gauze & Roll Gauze, Secured with Tape,Other -Other Covering abd ABD/FLOYD -Promogran Tayla Matter Right -Compression Wrap Floyd Wrap Treatment Response Procedure Tolerated Well Vital Signs Pulse Rate (60-100) Pulse Location Respiratory Rate (12-18) Respiratory rate source Oxygen Delivery Method Blood Pressure (90/60-120/80) Blood Pressure Mean (mm Hg) Source Position Pain Scale: 0-10 Numeric Is Patient Pain Free? Yes Yes Yes WC - Visit Discharge Discharge Condition Stable Stable Stable Ambulatory Status Ambulatory Ambulatory Ambulatory Transportation Private Auto Private Auto Accompanied by hospital Medication Reconcilliation completed & No provided to patient/care provider Clinical Summary of Care Provided No Notes: Dressing applied per Regional Branch Manager today. Wound debrided: #3 Right inferior knee muscle flap and skin graft. Laterality: Right Wound Grade/Stage: 2. Type of Debridement: Excisional debridement Anesthesia Used: 4% Lidocaine Solution Depth: Down to and including healthy tissue, in the subcutaneous layer Percentage of wound debrided: 100 Instrument Used: 3mm curette Tissue Removed: subcutaneous tissue. Severity: Fat Layer Exposed Amount of bleeding with debridement: Mild Bleeding Controlled with: Pressure Patient tolerated procedure well - Additional Wound Wound debrided: #4 Right posterior leg. Laterality: Right Wound Grade/Stage: 2. Type of Debridement: Excisional debridement Anesthesia Used: 4% Lidocaine Solution Depth: Down to and including healthy tissue, in the subcutaneous layer Percentage of wound debrided: 100 Instrument Used: 3mm curette Tissue Removed: subcutaneous tissue. 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 Nonhealing ulcer right inferior knee by tibial tubercle. 2. History of revision replacement right knee. 3. History of right TKA infection. 4. Former smoker. 5. Sural nerve injury right posterior leg. 6. 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 7. Nonhealing ulcer right posterior leg. 8. Mild skin graft compromise right inferior knee. Plan: Muscle flap is healing satisfactory. Skin graft shows good adherence and vascular ingrowth. About 80% take. Mild scattered areas of skin graft compromise noted. Can benefit from HBO therapy to improve the salvage of the skin graft. She has started the HBO treatments and has tolerated them thus far. Continue Collagen Hydrogel to the skin graft ulcer and the right posterior leg ulcer. Continue FLOYD wrap for compression. She doesn't wear the knee brace anymore. Continue Doxycycline and Voriconazole. Prealbumin from 11/30/19 was 24.7. Encourage nutritional supplementation with protein to help the healing process. Followup 2 weeks. She exhibits good range of motion with her right knee as she can bend it almost 75-80 degrees. [id number]: [id number] Global Visit - ICD-10 - Z48.89, L97.912, Z96.651, T84.53xS, S84.21xA, T81.89xA, Z87.891
[2020-02-20 08:00] LABS: Bedside Glucose 168 mg/dL (70-110)
[2020-02-20 08:44] VITALS: BP 135/74; BP 137/71; PULSE 83; PULSE 87; RESP 15; RESP 16; TEMP 35.6; TEMP 35.9
--- NOTE | 2020-02-20 12:01 | WC ---
Patient completed her HBOT today successfully and was dressed and walked out the door and to the hallway and stated her left foot got stuck on the floor due to rheumatoid arthritis and it caused her to fall forward and she hit her left side of head on the door frame to room 4. No one witnessed this incident and she felt blood streaming down her head and walked back into the HBO room for help. I immediately walked her back to room 4 and had her sit down while I was applying pressure to her head. Soapy wash clothes were given to clean up the blood on her head and neck and hands. She was alert and oriented x [address] Carmen was notified as he walked by. He recommended going to the ER for evaluation. Patient states she has a 10:30 podiatry appt that she can't miss mostly because it has to do with why her foot stops working. After 5-6 mins of pressure, the laceration stopped bleeding and dry gauze/gauze roll and coban was used to wrap around her head. BP 143/72 and HR 82. Patient ambulated to car without difficulty and was and answering questions appropriately.
[2020-02-20 12:05] LABS: Bedside Glucose 181 mg/dL (70-110)
--- NOTE | 2020-02-20 12:09 | WC ---
Called patient and she's home, she doesn't feel she needs to go to ER. Her head is sore but the laceration has scabbed over. She will report to ER if she develops a headache. Patient is scheduled for HBO on . Patient also states she will be getting new diabetic shoes from her [employer]. She states she has bone on bone to her feet making it difficult to ambulate at times. She thanked me for the phone call.
--- NOTE | 2020-02-20 14:56 | HBO.PN.PCM_ITS ---
History of Present Illness Date of Service: 02/20/20 Presenting Chief Complaint: Nonhealing ulcer right inferior knee s/p polyethylene exchange and gastrocnemius muscle flap reconstruction on 11/29/19 - failing/compromised flap. RAJESH CARRENO is a 59 year old currently undergoing hyperbaric oxygen therapy for a failing/compromised right medial gastrocnemius muscular rotation flap. Progress: Today's session represents the 16th session of hyperbaric oxygen therapy, of an expected 20 such treatments. Tolerance of hyperbaric oxygen therapy: Hyperbaric oxygen therapy was administered as per the facility's protocol. Hyperbaric oxygen therapy was administered for 90 minutes at 2 tahir, with no air breaks. The patient tolerated hyperbaric oxygen therapy well, without complaints or complications. Upon emergence from the hyperbaric chamber, the patient's vital signs remained stab le. The patient was discharged in good condition. Blood glucose levels before and after hyperbaric oxygen therapy are documented elsewhere. 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, sequela (Chronic) Nonhealing ulcer of right lower extremity with fat layer exposed (Chronic) Nonhealing ulcer right inferior knee by tibial tubercle History of DVT (deep vein thrombosis) (Chronic) Septic arthritis of knee, right (Chronic) Hx of total knee replacement (Chronic) right Restless leg (Chronic) RENNY (obstructive sleep apnea) (Chronic) Hypothyroidism (Chronic) Diverticulosis of colon without diverticulitis (Chronic) Depression (Chronic) Postphlebitic syndrome with inflammation (Chronic) Lumbar disc disease (Chronic) History of Graves' disease (Chronic) Diabetes mellitus (Chronic) Renal insufficiency (Chronic) Presence of IVC filter (Chronic) Obesity (Chronic) Edema leg (Chronic) Leg swelling (Chronic) DVT of lower extremity (deep venous thrombosis) (Chronic) Allergies/Adverse Reactions: Allergies hydrocodone bitartrate [From Lortab] Allergy (Intermediate, Verified 09/06/19 07:31) Other lips swell, ataxia etodolac Allergy (Verified 09/06/19 07:31) Unknown misoprostol Allergy (Verified 09/06/19 07:31) Unknown celecoxib Adverse Reaction (Intermediate, Verified 09/06/19 07:31) Other heart palpitations diclofenac [Diclofenac] Adverse Reaction (Mild, Verified 09/06/19 07:31) Abd cramps/diarrhea ketorolac tromethamine [From Toradol] Adverse Reaction (Mild, Verified 09/06/19 07:31) Other balance issues metoclopramide HCl [From Reglan] Adverse Reaction (Mild, Verified 09/06/19 07:31) Other worsens restless leg atorvastatin [From Lipitor] Adverse Reaction (Verified 09/06/19 07:31) Other FACE SPASMS clindamycin Adverse Reaction (Verified 09/06/19 07:31) Mucosal lesions Home Medications: Ambulatory Orders Medication Instructions Recorded Levothyroxine [Synthroid] 175 mcg PO DAILY 09/01/13 Omeprazole [Prilosec] 20 mg PO DAILY 12/13/16 Cholecalciferol (Vitamin D3) 5,000 unit PO DAILY@1200 01/25/17 [Vitamin D3] [place]-3 Fatty Acids/Fish Oil [Fish 2,000 mg PO LUNCH 03/21/18 Oil 1,000 mg Capsule] Gabapentin 800 mg PO BID 08/01/18 Gabapentin [Neurontin] 1,200 mg PO QHS 08/01/18 Lisinopril [Zestril] 10 mg PO LUNCH 08/01/18 Pramipexole Di-HCl [Pramipexole 1 mg PO LUNCH 08/01/18 Dihydrochloride] Pramipexole Di-HCl [Pramipexole 1.5 tab PO QHS 08/01/18 Dihydrochloride] Venlafaxine HCl [Effexor Xr] 1 tab PO DAILY 08/01/18 Venlafaxine HCl [Venlafaxine HCl 1 tab PO DAILY 08/01/18 ER] Aspirin [Aspir-Low] 81 mg PO LUNCH 05/02/19 Famotidine [Pepcid] 40 mg PO QHS 05/02/19 Ferrous Sulfate 325 mg PO DAILY 08/30/19 Ascorbic Acid [Vitamin C] 500 mg PO LUNCH 11/28/19 Doxycycline 100 mg PO BID 11/28/19 Montelukast [Singulair] 10 mg PO QHS 11/28/19 Pramipexole Di-HCl [Mirapex] 0.5 mg PO DAILY 11/28/19 Voriconazole 200 mg PO BID 11/28/19 Acetaminophen [Tylenol] 1,000 mg PO Q8 tab 12/04/19 Senna/Docusate Sodium [Senokot-S] 2 tab PO BID tab 12/04/19 Maternal Family History: Heart Disease, Hypertension Paternal Family History: Heart Disease, Hypertension Sibling Family History: Cancer, Diabetes, Hypertension, - Smoking Status: Former smoker Physical Exam Vital Signs Temp Pulse Resp BP 96.0 F L 87 16 137/71 H 02/20/20 08:44 02/20/20 08:44 02/20/20 08:44 02/20/20 08:44 General: Alert, Oriented x3, Cooperative, No apparent distress, Well developed, Well nourished HEENT: Atraumatic, PERRLA, EOMI, Normocephalic Lungs: Normal air movement Psych/Mental Status: Normal Affect, Appropriate, Alert and oriented to time, place, person, mood and affect Assessment/Plan Active Problems Chronic ulcer of right leg (Chronic) 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 Treatment Course Number Number of HBO Treatments 20 Ordered Treatment Course Number 1 Treatment # 16 Chamber # 1 Chamber Type Monoplace Diabetes - Detail Diabetes Diabetes Type II Other - Detail Compromised/Failed Flap/Graft Yes: right knee (specify site in comment) Treatment Plan PATRICIA (Atmospheric Absolute) 2 Number of Minutes 90 Number of Air Breaks 0
[2020-02-21 08:25] VITALS: BP 121/80; BP 142/78; PULSE 79; PULSE 81; RESP 16; TEMP 35.3; TEMP 35.6
[2020-02-21 09:45] LABS: Bedside Glucose 146 mg/dL (70-110)
[2020-02-21 10:41] LABS: Bedside Glucose 147 mg/dL (70-110)
--- NOTE | 2020-02-21 11:19 | HBO.PN.PCM_ITS ---
History of Present Illness Date of Service: 02/21/20 Presenting Chief Complaint: Nonhealing ulcer right inferior knee s/p polyethylene exchange and gastrocnemius muscle flap reconstruction on 11/29/19 - failing/compromised flap. RAJESH CARRENO is a 59 year old currently undergoing hyperbaric oxygen therapy for a failing/compromised right medial gastrocnemius muscular rotation flap. Progress: Today's session represents the 17th session of hyperbaric oxygen therapy, of an expected 20 such treatments. Tolerance of hyperbaric oxygen therapy: Hyperbaric oxygen therapy was administered as per the facility's protocol. Hyperbaric oxygen therapy was administered for 90 minutes at 2 tahir, with no air breaks. The patient tolerated hyperbaric oxygen therapy well, without complaints or complications. Upon emergence from the hyperbaric chamber, the patient's vital signs remained stab le. The patient was discharged in good condition. Blood glucose levels before and after hyperbaric oxygen therapy are documented elsewhere. 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, sequela (Chronic) Nonhealing ulcer of right lower extremity with fat layer exposed (Chronic) Nonhealing ulcer right inferior knee by tibial tubercle History of DVT (deep vein thrombosis) (Chronic) Septic arthritis of knee, right (Chronic) Hx of total knee replacement (Chronic) right Restless leg (Chronic) RENNY (obstructive sleep apnea) (Chronic) Hypothyroidism (Chronic) Diverticulosis of colon without diverticulitis (Chronic) Depression (Chronic) Postphlebitic syndrome with inflammation (Chronic) Lumbar disc disease (Chronic) History of Graves' disease (Chronic) Diabetes mellitus (Chronic) Renal insufficiency (Chronic) Presence of IVC filter (Chronic) Obesity (Chronic) Edema leg (Chronic) Leg swelling (Chronic) DVT of lower extremity (deep venous thrombosis) (Chronic) Allergies/Adverse Reactions: Allergies hydrocodone bitartrate [From Lortab] Allergy (Intermediate, Verified 09/06/19 07:31) Other lips swell, ataxia etodolac Allergy (Verified 09/06/19 07:31) Unknown misoprostol Allergy (Verified 09/06/19 07:31) Unknown celecoxib Adverse Reaction (Intermediate, Verified 09/06/19 07:31) Other heart palpitations diclofenac [Diclofenac] Adverse Reaction (Mild, Verified 09/06/19 07:31) Abd cramps/diarrhea ketorolac tromethamine [From Toradol] Adverse Reaction (Mild, Verified 09/06/19 07:31) Other balance issues metoclopramide HCl [From Reglan] Adverse Reaction (Mild, Verified 09/06/19 07:31) Other worsens restless leg atorvastatin [From Lipitor] Adverse Reaction (Verified 09/06/19 07:31) Other FACE SPASMS clindamycin Adverse Reaction (Verified 09/06/19 07:31) Mucosal lesions Home Medications: Ambulatory Orders Medication Instructions Recorded Levothyroxine [Synthroid] 175 mcg PO DAILY 09/01/13 Omeprazole [Prilosec] 20 mg PO DAILY 12/13/16 Cholecalciferol (Vitamin D3) 5,000 unit PO DAILY@1200 01/25/17 [Vitamin D3] [place]-3 Fatty Acids/Fish Oil [Fish 2,000 mg PO LUNCH 03/21/18 Oil 1,000 mg Capsule] Gabapentin 800 mg PO BID 08/01/18 Gabapentin [Neurontin] 1,200 mg PO QHS 08/01/18 Lisinopril [Zestril] 10 mg PO LUNCH 08/01/18 Pramipexole Di-HCl [Pramipexole 1 mg PO LUNCH 08/01/18 Dihydrochloride] Pramipexole Di-HCl [Pramipexole 1.5 tab PO QHS 08/01/18 Dihydrochloride] Venlafaxine HCl [Effexor Xr] 1 tab PO DAILY 08/01/18 Venlafaxine HCl [Venlafaxine HCl 1 tab PO DAILY 08/01/18 ER] Aspirin [Aspir-Low] 81 mg PO LUNCH 05/02/19 Famotidine [Pepcid] 40 mg PO QHS 05/02/19 Ferrous Sulfate 325 mg PO DAILY 08/30/19 Ascorbic Acid [Vitamin C] 500 mg PO LUNCH 11/28/19 Doxycycline 100 mg PO BID 11/28/19 Montelukast [Singulair] 10 mg PO QHS 11/28/19 Pramipexole Di-HCl [Mirapex] 0.5 mg PO DAILY 11/28/19 Voriconazole 200 mg PO BID 11/28/19 Acetaminophen [Tylenol] 1,000 mg PO Q8 tab 12/04/19 Senna/Docusate Sodium [Senokot-S] 2 tab PO BID tab 12/04/19 Maternal Family History: Heart Disease, Hypertension Paternal Family History: Heart Disease, Hypertension Sibling Family History: Cancer, Diabetes, Hypertension, - Smoking Status: Former smoker Physical Exam Vital Signs Temp Pulse Resp BP 95.5 F L 81 16 121/80 H 02/21/20 08:25 02/21/20 08:25 02/21/20 08:25 02/21/20 08:25 Assessment/Plan Active Problems Chronic ulcer of right leg (Chronic) 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 Treatment Course Number Number of HBO Treatments 20 Ordered Treatment Course Number 1 Treatment # 17 Chamber # 1 Chamber Type Monoplace Diabetes - Detail Diabetes Diabetes Type II Other - Detail Compromised/Failed Flap/Graft Yes: right knee (specify site in comment) Treatment Plan PATRICIA (Atmospheric Absolute) 2 Number of Minutes 90 Number of Air Breaks 0
[2020-02-23 07:50] LABS: Bedside Glucose 178 mg/dL (70-110)
[2020-02-23 10:15] LABS: Bedside Glucose 140 mg/dL (70-110)
[2020-02-23 10:53] VITALS: BP 133/72; BP 149/74; PULSE 81; PULSE 97; RESP 16; TEMP 36.4; TEMP 37.3
--- NOTE | 2020-02-23 12:50 | PCM.HBO.PN ---
History of Present Illness Date of Service: 02/23/20 Presenting Chief Complaint: Nonhealing ulcer right inferior knee s/p polyethylene exchange and gastrocnemius muscle flap reconstruction on 11/29/19 with compromise to the overlying skin graft and nonhealing ulcer right posterior leg. RAJESH CARRENO is a 59 year old currently undergoing hyperbaric oxygen therapy for a failing/compromised right medial gastrocnemius muscular rotation flap. Progress: Today's session represents the 18th session of hyperbaric oxygen therapy, of an expected 20 such treatments. Tolerance of hyperbaric oxygen therapy: Hyperbaric oxygen therapy was administered as per the facility's protocol. Hyperbaric oxygen therapy was administered for 90 minutes at 2 tahir, with no air breaks. The patient tolerated hyperbaric oxygen therapy well, without complaints or complications. Upon emergence from the hyperbaric chamber, the patient's vital signs remained stable. The patient was discharged in good condition. Blood glucose levels before and after hyperbaric oxygen therapy are documented elsewhere. 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, sequela (Chronic) Nonhealing ulcer of right lower extremity with fat layer exposed (Chronic) Nonhealing ulcer right inferior knee by tibial tubercle History of DVT (deep vein thrombosis) (Chronic) Septic arthritis of knee, right (Chronic) Hx of total knee replacement (Chronic) right Restless leg (Chronic) RENNY (obstructive sleep apnea) (Chronic) Hypothyroidism (Chronic) Diverticulosis of colon without diverticulitis (Chronic) Depression (Chronic) Postphlebitic syndrome with inflammation (Chronic) Lumbar disc disease (Chronic) History of Graves' disease (Chronic) Diabetes mellitus (Chronic) Renal insufficiency (Chronic) Presence of IVC filter (Chronic) Obesity (Chronic) Edema leg (Chronic) Leg swelling (Chronic) DVT of lower extremity (deep venous thrombosis) (Chronic) Allergies/Adverse Reactions: Allergies hydrocodone bitartrate [From Lortab] Allergy (Intermediate, Verified 09/06/19 07:31) Other lips swell, ataxia etodolac Allergy (Verified 09/06/19 07:31) Unknown misoprostol Allergy (Verified 09/06/19 07:31) Unknown celecoxib Adverse Reaction (Intermediate, Verified 09/06/19 07:31) Other heart palpitations diclofenac [Diclofenac] Adverse Reaction (Mild, Verified 09/06/19 07:31) Abd cramps/diarrhea ketorolac tromethamine [From Toradol] Adverse Reaction (Mild, Verified 09/06/19 07:31) Other balance issues metoclopramide HCl [From Reglan] Adverse Reaction (Mild, Verified 09/06/19 07:31) Other worsens restless leg atorvastatin [From Lipitor] Adverse Reaction (Verified 09/06/19 07:31) Other FACE SPASMS clindamycin Adverse Reaction (Verified 09/06/19 07:31) Mucosal lesions Home Medications: Ambulatory Orders Medication Instructions Recorded Levothyroxine [Synthroid] 175 mcg PO DAILY 09/01/13 Omeprazole [Prilosec] 20 mg PO DAILY 12/13/16 Cholecalciferol (Vitamin D3) 5,000 unit PO DAILY@1200 01/25/17 [Vitamin D3] [place]-3 Fatty Acids/Fish Oil [Fish 2,000 mg PO LUNCH 03/21/18 Oil 1,000 mg Capsule] Gabapentin 800 mg PO BID 08/01/18 Gabapentin [Neurontin] 1,200 mg PO QHS 08/01/18 Lisinopril [Zestril] 10 mg PO LUNCH 08/01/18 Pramipexole Di-HCl [Pramipexole 1 mg PO LUNCH 08/01/18 Dihydrochloride] Pramipexole Di-HCl [Pramipexole 1.5 tab PO QHS 08/01/18 Dihydrochloride] Venlafaxine HCl [Effexor Xr] 1 tab PO DAILY 08/01/18 Venlafaxine HCl [Venlafaxine HCl 1 tab PO DAILY 08/01/18 ER] Aspirin [Aspir-Low] 81 mg PO LUNCH 05/02/19 Famotidine [Pepcid] 40 mg PO QHS 05/02/19 Ferrous Sulfate 325 mg PO DAILY 08/30/19 Ascorbic Acid [Vitamin C] 500 mg PO LUNCH 11/28/19 Doxycycline 100 mg PO BID 11/28/19 Montelukast [Singulair] 10 mg PO QHS 11/28/19 Pramipexole Di-HCl [Mirapex] 0.5 mg PO DAILY 11/28/19 Voriconazole 200 mg PO BID 11/28/19 Acetaminophen [Tylenol] 1,000 mg PO Q8 tab 12/04/19 Senna/Docusate Sodium [Senokot-S] 2 tab PO BID tab 12/04/19 Maternal Family History: Heart Disease, Hypertension Paternal Family History: Heart Disease, Hypertension Sibling Family History: Cancer, Diabetes, Hypertension, - Smoking Status: Former smoker Physical Exam Vital Signs Temp Pulse Resp BP 97.5 F L 97 16 149/74 H 02/23/20 10:53 02/23/20 10:53 02/23/20 10:53 02/23/20 10:53 General: Alert, Cooperative, No apparent distress HEENT: Atraumatic, Normocephalic Lungs: Clear to auscultation, Normal air movement, No rhonchi, No wheeze, No rales Cardiovascular: Regular rate, Regular Rhythm Psych/Mental Status: Normal Affect, Appropriate Assessment/Plan Active Problems Chronic ulcer of right leg (Chronic) 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 Treatment Course Number Number of HBO Treatments 20 Ordered Treatment Course Number 1 Treatment # 18 Chamber # 1 Chamber Type Monoplace Diabetes - Detail Diabetes Diabetes Type II Other - Detail Compromised/Failed Flap/Graft Yes: right knee (specify site in comment) Treatment Plan PATRICIA (Atmospheric Absolute) 2 Number of Minutes 90 Number of Air Breaks 0
[2020-02-26 13:14] VITALS: BP 154/90; PULSE 91; RESP 22; TEMP 36.8; BMI 45.3
--- NOTE | 2020-02-26 14:10 | PCM.WC.PN ---
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 Status: Chronic Code(s): L97.912 - Non-pressure chronic ulcer of unspecified part of right lower leg with fat layer exposed Comment: Nonhealing ulcer right inferior knee by tibial tubercle (3) Diabetes mellitus with skin ulcer Status: Chronic Code(s): E11.622 - Type 2 diabetes mellitus with other skin ulcer; L98.499 - Non-pressure chronic ulcer of skin of other sites with unspecified severity (4) Diabetes mellitus Status: Chronic Qualifiers: Diabetes mellitus type: type 2 Code(s): E11.9 - Type 2 diabetes mellitus without complications (5) History of right knee joint replacement Status: Chronic Code(s): Z96.651 - Presence of right artificial knee joint (6) Edema leg Status: Chronic Code(s): R60.0 - Localized edema Type of Wound Date of Service: 02/26/20 Chief Complaint: Nonhealing ulcer right inferior knee s/p polyethylene exchange and gastrocnemius muscle flap reconstruction on 11/29/19 with compromise to the overlying skin graft and nonhealing ulcer right posterior leg. History of Wound: Surgery 11/29/19 - Irrigation debridement with polyethylene exchange right total knee and excision sinus tract right knee by Dr Barton. 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 Lazaro. Wound care - Epifix #1 applied today to both the knee and posterior ulcer covered by wound veil. Operative culture - negative. Currently on Doxycycline and Voriconazole. Prealbumin on 11/30/19 was 24.7. Encourage nutritional supplementation with protein to help the healing process. Today she denies fever. Her appetite is good. She is ambulating ok. She doesn't need the knee brace and occasionally will use the walker. She has burning nerve pain and tingling in the area of the sural nerve distribution. She is noticing improvement with the Neurontin. She has started HBO treatments for compromise to the skin graft and is tolerating the treatments. Progress of Wound: Patient tolerating HBOT well for her compromised skin graft. Muscle flap is healed. Skin graft/ulcer on right knee is improved. Nonhealing ulcer right posterior leg is stable. - Physical Exam Vital Signs Temp Pulse Resp BP 98.2 F 91 22 H 154/90 H 02/26/20 13:14 02/26/20 13:14 02/26/20 13:14 02/26/20 13:14 General: Alert, Oriented x3, Cooperative HEENT: Atraumatic Oral: Moist Mucosa Lungs: Normal air movement Cardiovascular: Regular rate Extremities: Capillary Refill Less than 3 Seconds, Edema Skin: Ulcer/ Wound - Right knee ulcer is improving. Right posterior leg ulcer is stable. Wound Measurements and Assessment WC - Nurse 1 - General Ulcer Measurement Start: 02/05/20 10:21 Freq: Status: Active Protocol: Activity Type Activity Date Activity User E-Sign Co-Sign Detail Recorded Client Recorded Date Recorded By Document 02/26/20 13:14 DL [id number] 02/26/20 13:24 DL 02/26/20 13:14 Wound Center Nurse 1 [Ulcer Assessment] #4 R Post calf -Current Size (cm) - Length 5.7 -Current Size (cm) - Width 0.8 -Current Size (cm) - Depth 0.3 -Total Square Cm 4.56 -Photo Taken No -Exudate Amt None Present -Wound Margin Distinct, Outline Attached -Granulation Amt Small (1-33%) -Granulation Quality Pale,[place] -Necrosis Amt Large (67-100%) -Necrotic Tissue Type Adherent Slough -Structure Exposed N/A -Texture (Aileen-wound Skin Appearance) Scarring -Moisture (Aileen-wound Skin Appearance No Abnormality ) -Color (Aileen-wound Skin Appearance) Hemosiderin Staining -Temperature (Aileen-wound Skin No Abnormality Appearance) (Pt Warm) -Tenderness on Palpation (Aileen-wound No Skin Appearance) -Ulcer Cleansing Wound Cleanser -Foul Odor after Cleansing No -Anesthetic Used 4% Lidocaine Solution 3-right knee graft site -Current Size (cm) - Length 9.6 -Current Size (cm) - Width 4 -Current Size (cm) - Depth 0.1 -Total Square Cm 38.4 -Photo Taken No -Exudate Amt Small -Exudate Type Serosanguineous -Wound Margin Distinct, Outline Attached -Granulation Amt Medium (34-66%) -Granulation Quality Red -Necrosis Amt Medium (34-66%) -Necrotic Tissue Type Adherent Slough -Structure Exposed N/A -Texture (Aileen-wound Skin Appearance) Scarring -Moisture (Aileen-wound Skin Appearance No Abnormality ) -Color (Aileen-wound Skin Appearance) Hemosiderin Staining -Temperature (Aileen-wound Skin No Abnormality Appearance) (Pt Warm) -Tenderness on Palpation (Aileen-wound No Skin Appearance) -Ulcer Cleansing Wound Cleanser -Foul Odor after Cleansing No -Anesthetic Used 4% Lidocaine Solution [Edema Assessment] -Right Calf (cm) 40 -Right Ankle (cm) 25 WC - Nurse 2 - General Ulcer CM Notes Start: 02/05/20 10:21 Freq: Status: Active Protocol: Activity Type Activity Date Activity User E-Sign Co-Sign Detail Recorded Client Recorded Date Recorded By Document 02/26/20 13:48 ALETA [id number] 02/26/20 14:00 ALETA 02/26/20 13:48 Wound Center Nurse 2 [Procedure/Treatment] #4 R Post calf -Time 13:51 -Correct Patient Yes -Correct Side, Site, Position Yes -Correct Procedure Yes -Procedure Performed Yes -Type of Procedure Debridement -Clinical Debridement Subcutaneous -Tissue Removed Subcutaneous -Post Debridement (cm) - Length 2.4 -Post Debridement (cm) - Width 1.2 -Post Debridement (cm) - Depth 0.6 -Total Square (Post) (cm) 2.88 -Area of Debridement (cm) - Length 2.4 -Area of Debridement (cm) - Width 1.2 -Total Square (Area) (cm) 2.88 -Tunneling No -Undermining/Tunneling No -Circular Undermining No -Wound/Ulcer Outcome Not Healed -Ulcer Cleansing Rinsed/ Irrigated with Saline -Foul Odor after Cleansing No -Bioengineered Tissue Yes -Type of Bioengineered Tissue Epifix Mesh -Expiration Date 12/04/24 -Product Lot Number [id number] -Percent Used 100 -Saline Lot Number [id number] -Bleeding Controlled with Pressure -Other saline [id number] -Offloading No -Treatment Response Procedure Tolerated Well -Debridement - Subq, 1st 20sq cm No -Apply Skin Sub - 1st 25 sq cm - Legs 1 -Epifix Mesh (per sq cm) 11 3-right knee graft site -Time 13:57 -Correct Patient Yes -Correct Side, Site, Position Yes -Correct Procedure Yes -Procedure Performed Yes -Type of Procedure Debridement -Clinical Debridement Subcutaneous -Tissue Removed Subcutaneous -Post Debridement (cm) - Length 8.5 -Post Debridement (cm) - Width 5.2 -Post Debridement (cm) - Depth 0.1 -Total Square (Post) (cm) 44.20 -Area of Debridement (cm) - Length 8.5 -Area of Debridement (cm) - Width 5.2 -Total Square (Area) (cm) 44.20 -Tunneling No -Undermining/Tunneling No -Circular Undermining No -Wound/Ulcer Outcome Not Healed -Ulcer Cleansing Rinsed/ Irrigated with Saline -Foul Odor after Cleansing No -Bioengineered Tissue Yes -Type of Bioengineered Tissue Epifix Mesh -Expiration Date 12/04/24 -Product Lot Number [id number] -Percent Used 100 -Bleeding Controlled with Pressure -Other saline [id number] -Offloading No -Treatment Response Procedure Tolerated Well -Debridement - Subq, 1st 20sq cm No -Epifix Mesh (per sq cm) 0 [See Physician Procedure note for Specifics] Pain Scale: 0-10 Numeric [Pain] -Is Patient Pain Free? Yes - Nurse 3 - General Ulcer D/C NN Start: 02/05/20 10:21 Freq: Status: Active Protocol: Activity Type Activity Date Activity User E-Sign Co-Sign Detail Recorded Client Recorded Date Recorded By Document 02/26/20 14:04 ALETA [id number] 02/26/20 14:04 ALETA 02/26/20 14:04 Wound Care Nurse 3 [Wound Dressing] #4 R Post calf -Ulcer Cleansing Rinsed/ Irrigated with Saline -Foul Odor after Cleansing No -Primary Dressing Covered/Secured Dry Gauze & with Roll Gauze, Secured with Tape 3-right knee graft site -Ulcer Cleansing Rinsed/ Irrigated with Saline -Foul Odor after Cleansing No -Primary Dressing Covered/Secured Dry Gauze & with Roll Gauze, Secured with Tape [Compression Applied] Right -Compression Wrap Roger Wrap Pain Scale: 0-10 Numeric [Pain] -Is Patient Pain Free? Yes - Visit Discharge [Visit Discharge Information] -Discharge Condition Stable -Ambulatory Status Ambulatory -Transportation Private Auto -Medication Reconcilliation completed Yes & provided to patient/care provider -Clinical Summary of Care Provided Yes Musculoskeletal: No Tenderness to Palpation of Joints or Extremities Neurological: Cranial nerves II-XII grossly intact Psych/Mental Status: Normal Affect, Appropriate Debridement Note Post-Debridement Measurements/Treatment WC - Nurse 2 - General Ulcer CM Notes Start: 02/05/20 10:21 Freq: Status: Active Protocol: Activity Type Activity Date Activity User E-Sign Co-Sign Detail Recorded Client Recorded Date Recorded By Document 02/05/20 10:49 [id number] 02/05/20 11:01 Document 02/12/20 10:58 [id number] 02/12/20 11:03 Document 02/19/20 10:30 [id number] 02/19/20 10:33 Document 02/26/20 13:48 [id number] 02/26/20 14:00 02/05/20 02/12/20 02/19/20 10:49 10:58 10:30 Wound Center Nurse 2 #4 R Post calf -Time 10:53 10:58 10:30 -Correct Patient Yes Yes Yes -Correct Side, Site, Position Yes Yes Yes -Correct Procedure Yes Yes Yes -Procedure Performed Yes Yes Yes -Type of Procedure Debridement Debridement Debridement -Clinical Debridement Subcutaneous Subcutaneous Subcutaneous -Tissue Removed Subcutaneous Subcutaneous Subcutaneous -Post Debridement (cm) - Length 3.3 3.2 2.5 -Post Debridement (cm) - Width 1.0 1.0 0.8 -Post Debridement (cm) - Depth 0.5 0.6 0.5 -Total Square (Post) (cm) 3.30 3.20 2.00 -Area of Debridement (cm) - Length 3.3 3.0 2.5 -Area of Debridement (cm) - Width 1.0 1.0 0.8 -Total Square (Area) (cm) 3.30 3.00 2.00 -Tunneling No No No -Undermining/Tunneling No No No -Circular Undermining No No No -Wound/Ulcer Outcome Not Healed Not Healed Not Healed -Ulcer Cleansing Rinsed/ Rinsed/ Rinsed/ Irrigated with Irrigated with Irrigated with Saline Saline Saline -Foul Odor after Cleansing No No No -Bioengineered Tissue No No No -Type of Bioengineered Tissue -Expiration Date -Product Lot Number -Percent Used -Saline Lot Number -Bleeding Controlled with Pressure Pressure Pressure -Other -Offloading No No No -Treatment Response Procedure Procedure Procedure Tolerated Well Tolerated Well Tolerated Well -Debridement - Subq, 1st 20sq cm No No No -Apply Skin Sub - 1st 25 sq cm - Legs -Epifix Mesh (per sq cm) 3-right knee graft site -Time 10:50 10:59 10:30 -Correct Patient Yes Yes Yes -Correct Side, Site, Position Yes Yes Yes -Correct Procedure Yes Yes Yes -Procedure Performed Yes Yes Yes -Type of Procedure Debridement Debridement Debridement -Clinical Debridement Subcutaneous Subcutaneous Subcutaneous -Tissue Removed Subcutaneous Subcutaneous Subcutaneous -Post Debridement (cm) - Length 9.3 9.0 9.2 -Post Debridement (cm) - Width 4.5 4.3 4.2 -Post Debridement (cm) - Depth 0.2 0.2 0.2 -Total Square (Post) (cm) 41.85 38.70 38.64 -Area of Debridement (cm) - Length 9.3 9.0 9.2 -Area of Debridement (cm) - Width 4.5 4.3 4.0 -Total Square (Area) (cm) 41.85 38.70 36.80 -Tunneling No No No -Undermining/Tunneling No No No -Circular Undermining No No No -Wound/Ulcer Outcome Not Healed Not Healed Not Healed -Ulcer Cleansing Rinsed/ Rinsed/ Rinsed/ Irrigated with Irrigated with Irrigated with Saline Saline Saline -Foul Odor after Cleansing No No No -Bioengineered Tissue No No No -Type of Bioengineered Tissue -Expiration Date -Product Lot Number -Percent Used -Bleeding Controlled with Pressure Pressure Pressure -Other -Offloading No No No -Treatment Response Procedure Procedure Procedure Tolerated Well Tolerated Well Tolerated Well -Debridement - Subq, 1st 20sq cm Yes Yes Yes -Debridement, SubQ, ea addt'l 20sq cm 2 2 1 or part thereof -Epifix Mesh (per sq cm) Pain Scale: 0-10 Numeric Is Patient Pain Free? Yes Yes Yes 02/26/20 13:48 Wound Center Nurse 2 #4 R Post calf -Time 13:51 -Correct Patient Yes -Correct Side, Site, Position Yes -Correct Procedure Yes -Procedure Performed Yes -Type of Procedure Debridement -Clinical Debridement Subcutaneous -Tissue Removed Subcutaneous -Post Debridement (cm) - Length 2.4 -Post Debridement (cm) - Width 1.2 -Post Debridement (cm) - Depth 0.6 -Total Square (Post) (cm) 2.88 -Area of Debridement (cm) - Length 2.4 -Area of Debridement (cm) - Width 1.2 -Total Square (Area) (cm) 2.88 -Tunneling No -Undermining/Tunneling No -Circular Undermining No -Wound/Ulcer Outcome Not Healed -Ulcer Cleansing Rinsed/ Irrigated with Saline -Foul Odor after Cleansing No -Bioengineered Tissue Yes -Type of Bioengineered Tissue Epifix Mesh -Expiration Date 12/04/24 -Product Lot Number [id number] -Percent Used 100 -Saline Lot Number [id number] -Bleeding Controlled with Pressure -Other saline [id number] -Offloading No -Treatment Response Procedure Tolerated Well -Debridement - Subq, 1st 20sq cm No -Apply Skin Sub - 1st 25 sq cm - Legs 1 -Epifix Mesh (per sq cm) 11 3-right knee graft site -Time 13:57 -Correct Patient Yes -Correct Side, Site, Position Yes -Correct Procedure Yes -Procedure Performed Yes -Type of Procedure Debridement -Clinical Debridement Subcutaneous -Tissue Removed Subcutaneous -Post Debridement (cm) - Length 8.5 -Post Debridement (cm) - Width 5.2 -Post Debridement (cm) - Depth 0.1 -Total Square (Post) (cm) 44.20 -Area of Debridement (cm) - Length 8.5 -Area of Debridement (cm) - Width 5.2 -Total Square (Area) (cm) 44.20 -Tunneling No -Undermining/Tunneling No -Circular Undermining No -Wound/Ulcer Outcome Not Healed -Ulcer Cleansing Rinsed/ Irrigated with Saline -Foul Odor after Cleansing No -Bioengineered Tissue Yes -Type of Bioengineered Tissue Epifix Mesh -Expiration Date 12/04/24 -Product Lot Number [id number] -Percent Used 100 -Bleeding Controlled with Pressure -Other saline [id number] -Offloading No -Treatment Response Procedure Tolerated Well -Debridement - Subq, 1st 20sq cm No -Debridement, SubQ, ea addt'l 20sq cm or part thereof -Epifix Mesh (per sq cm) 0 Pain Scale: 0-10 Numeric Is Patient Pain Free? Yes WC - Nurse 3 - General Ulcer D/C NN Start: 02/05/20 10:21 Freq: Status: Active Protocol: Activity Type Activity Date Activity User E-Sign Co-Sign Detail Recorded Client Recorded Date Recorded By Document 02/05/20 11:16 BMF [id number] 02/05/20 11:18 BM Document 02/06/20 10:19 JF [id number] 02/06/20 10:22 JF Document 02/09/20 10:25 JF [id number] 02/09/20 10:29 JF Document 02/12/20 11:12 BMF [id number] 02/12/20 11:13 BMF Document 02/13/20 11:05 MS [id number] 02/13/20 11:21 MS Document 02/19/20 10:44 DL [id number] 02/19/20 10:45 DL Document 02/26/20 14:04 JF [id number] 02/26/20 14:04 02/05/20 02/06/20 02/09/20 11:16 10:19 10:25 Wound Care Nurse 3 #4 R Post calf -Ulcer Cleansing Rinsed/ Irrigated with Saline -Foul Odor after Cleansing No -Primary Dressing Applied NonAdherent Contact Layer, Promogran Tayla Matter -Primary Dressing Covered/Secured with Dry Gauze & Roll Gauze, Secured with Tape,Other -Other Covering abd -Promogran Tayla Matter 2 3-right knee graft site -Ulcer Cleansing Rinsed/ Irrigated with Saline -Foul Odor after Cleansing No -Primary Dressing Applied NonAdherent Contact Layer, Promogran Tayla Matter -Other Dressing -Primary Dressing Covered/Secured with Dry Gauze & Roll Gauze, Secured with Tape,Other -Other Covering abd -Promogran Tayla Matter 0 Right -Compression Wrap Treatment Response Procedure Tolerated Well Vital Signs Pulse Rate (60-100) 75 Pulse Location Monitor Respiratory Rate (12-18) 16 Respiratory rate source Observation Oxygen Delivery Method Room Air Blood Pressure (90/60-120/80) 147/96 H Blood Pressure Mean (mm Hg) 113 Source Monitor Position Sitting Pain Scale: 0-10 Numeric Is Patient Pain Free? Yes Yes Yes WC - Visit Discharge Discharge Condition Stable Stable Stable Ambulatory Status Ambulatory Ambulatory Ambulatory Transportation Private Auto Private Auto Private Auto Accompanied by hospital transportation Medication Reconcilliation completed & No Yes provided to patient/care provider Clinical Summary of Care Provided No Yes Notes: 02/12/20 02/13/20 02/19/20 11:12 11:05 10:44 Wound Care Nurse 3 #4 R Post calf -Ulcer Cleansing Rinsed/ Rinsed/ Irrigated with Irrigated with Saline Saline -Foul Odor after Cleansing No No -Primary Dressing Applied C Hydrogel ($), C Hydrogel ($) NonAdherent Contact Layer -Primary Dressing Covered/Secured with Dry Gauze & Dry Gauze & Roll Gauze, Roll Gauze, Secured with Secured with Tape,Other Tape -Other Covering abd ABD/ROGER -Promogran Tayla Matter 3-right knee graft site -Ulcer Cleansing Rinsed/ Rinsed/ Irrigated with Irrigated with Saline Saline -Foul Odor after Cleansing No No -Primary Dressing Applied NonAdherent Contact Layer, Other -Other Dressing hydrogel [id number] -Primary Dressing Covered/Secured with Dry Gauze & Roll Gauze, Secured with Tape,Other -Other Covering abd ABD/ROGER -Promogran Tayla Matter Right -Compression Wrap Roger Wrap Treatment Response Procedure Tolerated Well Vital Signs Pulse Rate (60-100) Pulse Location Respiratory Rate (12-18) Respiratory rate source Oxygen Delivery Method Blood Pressure (90/60-120/80) Blood Pressure Mean (mm Hg) Source Position Pain Scale: 0-10 Numeric Is Patient Pain Free? Yes Yes Yes WC - Visit Discharge Discharge Condition Stable Stable Stable Ambulatory Status Ambulatory Ambulatory Ambulatory Transportation Private Auto Private Auto Accompanied by hospital Medication Reconcilliation completed & No provided to patient/care provider Clinical Summary of Care Provided No Notes: Dressing applied per Inhalation Therapy Teacher today. 02/26/20 14:04 Wound Care Nurse 3 #4 R Post calf -Ulcer Cleansing Rinsed/ Irrigated with Saline -Foul Odor after Cleansing No -Primary Dressing Applied -Primary Dressing Covered/Secured with Dry Gauze & Roll Gauze, Secured with Tape -Other Covering -Promogran Tayla Matter 3-right knee graft site -Ulcer Cleansing Rinsed/ Irrigated with Saline -Foul Odor after Cleansing No -Primary Dressing Applied -Other Dressing -Primary Dressing Covered/Secured with Dry Gauze & Roll Gauze, Secured with Tape -Other Covering -Promogran Tayla Matter Right -Compression Wrap Roger Wrap Treatment Response Vital Signs Pulse Rate (60-100) Pulse Location Respiratory Rate (12-18) Respiratory rate source Oxygen Delivery Method Blood Pressure (90/60-120/80) Blood Pressure Mean (mm Hg) Source Position Pain Scale: 0-10 Numeric Is Patient Pain Free? Yes WC - Visit Discharge Discharge Condition Stable Ambulatory Status Ambulatory Transportation Private Auto Accompanied by Medication Reconcilliation completed & Yes provided to patient/care provider Clinical Summary of Care Provided Yes Notes: Wound debrided: Knee ulcer Laterality: Right Type of Debridement: Excisional debridement Anesthesia Used: 5% Lidocaine Gel Depth: Down to and including healthy tissue, in the subcutaneous layer Percentage of wound debrided: 100 Instrument Used: 3mm curette Tissue Removed: Subcutaneous tissue and slough Severity: Limited To Skin Breakdown Amount of bleeding with debridement: Mild Bleeding Controlled with: Pressure Patient tolerated procedure well - Additional Wound Wound debrided: posterior leg ulcer Laterality: Right Type of Debridement: Excisional debridement Anesthesia Used: 5% Lidocaine Gel Depth: Down to and including healthy tissue, in the subcutaneous layer Percentage of wound debrided: 100 Instrument Used: 3mm curette Tissue Removed: Subcutaneous tissue and slough Severity: Fat Layer Exposed Amount of bleeding with debridement: Mild Bleeding Controlled with: Pressure Patient tolerated procedure: Patient tolerated procedure well Assessment/Plan Active Problems Chronic ulcer of right leg (Chronic) 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 Nonhealing ulcer right inferior knee by tibial tubercle. 2. History of revision replacement right knee. 3. History of right TKA infection. 4. Former smoker. 5. Sural nerve injury right posterior leg. 6. 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 7. Nonhealing ulcer right posterior leg. 8. Mild skin graft compromise right inferior knee. Plan: Muscle flap is healing satisfactory. Skin graft shows good adherence and vascular ingrowth. About 80% take. Mild scattered areas of skin graft compromise noted. Is showing benefit from HBO therapy to improve the salvage of the skin graft. She has completed her first round of HBO treatments and has had a renewal of 20 additional treatments. She is showing improvement in her ulcers. Wound care: Epifix #1 applied to the right knee and right posterior leg ucler, covered with adaptic wound veil. Secured with steri strips. 100% of product was used. Continue ROGER wrap for compression. She doesn't wear the knee brace anymore. Continue Doxycycline and Voriconazole. Prealbumin from 11/30/19 was 24.7. Encourage nutritional supplementation with protein to help the healing process. Followup 1 week. She exhibits good range of motion with her right knee as she can bend it almost 75-80 degrees. [id number]: [id number] Global Visit
[2020-02-27 08:23] VITALS: BP 113/58; BP 145/89; PULSE 84; RESP 16; TEMP 35.8; TEMP 36.1
[2020-02-27 08:30] LABS: Bedside Glucose 138 mg/dL (70-110)
[2020-02-27 09:56] LABS: Bedside Glucose 150 mg/dL (70-110)
--- NOTE | 2020-02-27 13:22 | HBO.PN.PCM_ITS ---
History of Present Illness Date of Service: 02/27/20 Presenting Chief Complaint: Nonhealing ulcer right inferior knee s/p polyethylene exchange and gastrocnemius muscle flap reconstruction on 11/29/19 with compromise to the overlying skin graft and nonhealing ulcer right posterior leg. RAJESH CARRENO is a 59 year old currently undergoing hyperbaric oxygen therapy for a failing/compromised right medial gastrocnemius muscular rotation flap. Progress: Today's session represents the 19th session of hyperbaric oxygen therapy, of an expected 20 such treatments. Tolerance of hyperbaric oxygen therapy: Hyperbaric oxygen therapy was administered as per the facility's protocol. Hyperbaric oxygen therapy was administered for 90 minutes at 2 tahir, with no air breaks. The patient tolerated hyperbaric oxygen therapy well, without complaints or complications. Upon emergence from the hyperbaric chamber, the patient's vital signs remained stable. The patient was discharged in good condition. Blood glucose levels before and after hyperbaric oxygen therapy are documented elsewhere. 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, sequela (Chronic) Nonhealing ulcer of right lower extremity with fat layer exposed (Chronic) Nonhealing ulcer right inferior knee by tibial tubercle History of DVT (deep vein thrombosis) (Chronic) Septic arthritis of knee, right (Chronic) Hx of total knee replacement (Chronic) right Restless leg (Chronic) RENNY (obstructive sleep apnea) (Chronic) Hypothyroidism (Chronic) Diverticulosis of colon without diverticulitis (Chronic) Depression (Chronic) Postphlebitic syndrome with inflammation (Chronic) Lumbar disc disease (Chronic) History of Graves' disease (Chronic) Diabetes mellitus (Chronic) Renal insufficiency (Chronic) Presence of IVC filter (Chronic) Obesity (Chronic) Edema leg (Chronic) Leg swelling (Chronic) DVT of lower extremity (deep venous thrombosis) (Chronic) Allergies/Adverse Reactions: Allergies hydrocodone bitartrate [From Lortab] Allergy (Intermediate, Verified 09/06/19 07:31) Other lips swell, ataxia etodolac Allergy (Verified 09/06/19 07:31) Unknown misoprostol Allergy (Verified 09/06/19 07:31) Unknown celecoxib Adverse Reaction (Intermediate, Verified 09/06/19 07:31) Other heart palpitations diclofenac [Diclofenac] Adverse Reaction (Mild, Verified 09/06/19 07:31) Abd cramps/diarrhea ketorolac tromethamine [From Toradol] Adverse Reaction (Mild, Verified 09/06/19 07:31) Other balance issues metoclopramide HCl [From Reglan] Adverse Reaction (Mild, Verified 09/06/19 07:31) Other worsens restless leg atorvastatin [From Lipitor] Adverse Reaction (Verified 09/06/19 07:31) Other FACE SPASMS clindamycin Adverse Reaction (Verified 09/06/19 07:31) Mucosal lesions Home Medications: Ambulatory Orders Medication Instructions Recorded Levothyroxine [Synthroid] 175 mcg PO DAILY 09/01/13 Omeprazole [Prilosec] 20 mg PO DAILY 12/13/16 Cholecalciferol (Vitamin D3) 5,000 unit PO DAILY@1200 01/25/17 [Vitamin D3] [place]-3 Fatty Acids/Fish Oil [Fish 2,000 mg PO LUNCH 03/21/18 Oil 1,000 mg Capsule] Gabapentin 800 mg PO BID 08/01/18 Gabapentin [Neurontin] 1,200 mg PO QHS 08/01/18 Lisinopril [Zestril] 10 mg PO LUNCH 08/01/18 Pramipexole Di-HCl [Pramipexole 1 mg PO LUNCH 08/01/18 Dihydrochloride] Pramipexole Di-HCl [Pramipexole 1.5 tab PO QHS 08/01/18 Dihydrochloride] Venlafaxine HCl [Effexor Xr] 1 tab PO DAILY 08/01/18 Venlafaxine HCl [Venlafaxine HCl 1 tab PO DAILY 08/01/18 ER] Aspirin [Aspir-Low] 81 mg PO LUNCH 05/02/19 Famotidine [Pepcid] 40 mg PO QHS 05/02/19 Ferrous Sulfate 325 mg PO DAILY 08/30/19 Ascorbic Acid [Vitamin C] 500 mg PO LUNCH 11/28/19 Doxycycline 100 mg PO BID 11/28/19 Montelukast [Singulair] 10 mg PO QHS 11/28/19 Pramipexole Di-HCl [Mirapex] 0.5 mg PO DAILY 11/28/19 Voriconazole 200 mg PO BID 11/28/19 Acetaminophen [Tylenol] 1,000 mg PO Q8 tab 12/04/19 Senna/Docusate Sodium [Senokot-S] 2 tab PO BID tab 12/04/19 Maternal Family History: Heart Disease, Hypertension Paternal Family History: Heart Disease, Hypertension Sibling Family History: Cancer, Diabetes, Hypertension, - Smoking Status: Former smoker Physical Exam Vital Signs Temp Pulse Resp BP 96.5 F L 84 16 145/89 H 02/27/20 08:23 02/27/20 08:23 02/27/20 08:23 02/27/20 08:23 General: Alert, Oriented x3, Cooperative, No apparent distress, Well developed, Well nourished HEENT: Atraumatic, PERRLA, EOMI, Normocephalic Lungs: Normal air movement Psych/Mental Status: Normal Affect, Appropriate, Alert and oriented to time, place, person, mood and affect Assessment/Plan Active Problems Chronic ulcer of right leg (Chronic) 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 Treatment Course Number Number of HBO Treatments 50 Ordered Treatment Course Number 1 Treatment # 19 Chamber # 1 Chamber Type Monoplace Diabetes - Detail Diabetes Diabetes Type II Other - Detail Compromised/Failed Flap/Graft Yes: right knee (specify site in comment) Treatment Plan PATRICIA (Atmospheric Absolute) 2 Number of Minutes 90 Number of Air Breaks 0
[2020-02-28 07:55] LABS: Bedside Glucose 148 mg/dL (70-110)
[2020-02-28 08:28] VITALS: BP 116/63; BP 122/60; PULSE 77; PULSE 84; RESP 16; TEMP 35.3; TEMP 35.6
[2020-02-28 10:11] LABS: Bedside Glucose 136 mg/dL (70-110)
--- NOTE | 2020-02-28 10:28 | PCM.HBO.PN ---
History of Present Illness Date of Service: 02/28/20 Presenting Chief Complaint: Nonhealing ulcer right inferior knee s/p polyethylene exchange and gastrocnemius muscle flap reconstruction on 11/29/19 with compromise to the overlying skin graft and nonhealing ulcer right posterior leg. RAJESH CARRENO is a 59 year old currently undergoing hyperbaric oxygen therapy for a failing/compromised right medial gastrocnemius muscular rotation flap. Progress: Today's session represents the 20th session of hyperbaric oxygen therapy, of an expected 20 such treatments. Tolerance of hyperbaric oxygen therapy: Hyperbaric oxygen therapy was administered as per the facility's protocol. Hyperbaric oxygen therapy was administered for 90 minutes at 2 tahir, with no air breaks. The patient tolerated hyperbaric oxygen therapy well, without complaints or complications. Upon emergence from the hyperbaric chamber, the patient's vital signs remained stable. The patient was discharged in good condition. Blood glucose levels before and after hyperbaric oxygen therapy are documented elsewhere. 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, sequela (Chronic) Nonhealing ulcer of right lower extremity with fat layer exposed (Chronic) Nonhealing ulcer right inferior knee by tibial tubercle History of DVT (deep vein thrombosis) (Chronic) Septic arthritis of knee, right (Chronic) Hx of total knee replacement (Chronic) right Restless leg (Chronic) RENNY (obstructive sleep apnea) (Chronic) Hypothyroidism (Chronic) Diverticulosis of colon without diverticulitis (Chronic) Depression (Chronic) Postphlebitic syndrome with inflammation (Chronic) Lumbar disc disease (Chronic) History of Graves' disease (Chronic) Diabetes mellitus (Chronic) Renal insufficiency (Chronic) Presence of IVC filter (Chronic) Obesity (Chronic) Edema leg (Chronic) Leg swelling (Chronic) DVT of lower extremity (deep venous thrombosis) (Chronic) Allergies/Adverse Reactions: Allergies hydrocodone bitartrate [From Lortab] Allergy (Intermediate, Verified 09/06/19 07:31) Other lips swell, ataxia etodolac Allergy (Verified 09/06/19 07:31) Unknown misoprostol Allergy (Verified 09/06/19 07:31) Unknown celecoxib Adverse Reaction (Intermediate, Verified 09/06/19 07:31) Other heart palpitations diclofenac [Diclofenac] Adverse Reaction (Mild, Verified 09/06/19 07:31) Abd cramps/diarrhea ketorolac tromethamine [From Toradol] Adverse Reaction (Mild, Verified 09/06/19 07:31) Other balance issues metoclopramide HCl [From Reglan] Adverse Reaction (Mild, Verified 09/06/19 07:31) Other worsens restless leg atorvastatin [From Lipitor] Adverse Reaction (Verified 09/06/19 07:31) Other FACE SPASMS clindamycin Adverse Reaction (Verified 09/06/19 07:31) Mucosal lesions Home Medications: Ambulatory Orders Medication Instructions Recorded Levothyroxine [Synthroid] 175 mcg PO DAILY 09/01/13 Omeprazole [Prilosec] 20 mg PO DAILY 12/13/16 Cholecalciferol (Vitamin D3) 5,000 unit PO DAILY@1200 01/25/17 [Vitamin D3] [place]-3 Fatty Acids/Fish Oil [Fish 2,000 mg PO LUNCH 03/21/18 Oil 1,000 mg Capsule] Gabapentin 800 mg PO BID 08/01/18 Gabapentin [Neurontin] 1,200 mg PO QHS 08/01/18 Lisinopril [Zestril] 10 mg PO LUNCH 08/01/18 Pramipexole Di-HCl [Pramipexole 1 mg PO LUNCH 08/01/18 Dihydrochloride] Pramipexole Di-HCl [Pramipexole 1.5 tab PO QHS 08/01/18 Dihydrochloride] Venlafaxine HCl [Effexor Xr] 1 tab PO DAILY 08/01/18 Venlafaxine HCl [Venlafaxine HCl 1 tab PO DAILY 08/01/18 ER] Aspirin [Aspir-Low] 81 mg PO LUNCH 05/02/19 Famotidine [Pepcid] 40 mg PO QHS 05/02/19 Ferrous Sulfate 325 mg PO DAILY 08/30/19 Ascorbic Acid [Vitamin C] 500 mg PO LUNCH 11/28/19 Doxycycline 100 mg PO BID 11/28/19 Montelukast [Singulair] 10 mg PO QHS 11/28/19 Pramipexole Di-HCl [Mirapex] 0.5 mg PO DAILY 11/28/19 Voriconazole 200 mg PO BID 11/28/19 Acetaminophen [Tylenol] 1,000 mg PO Q8 tab 12/04/19 Senna/Docusate Sodium [Senokot-S] 2 tab PO BID tab 12/04/19 Maternal Family History: Heart Disease, Hypertension Paternal Family History: Heart Disease, Hypertension Sibling Family History: Cancer, Diabetes, Hypertension, - Smoking Status: Former smoker Physical Exam Vital Signs Temp Pulse Resp BP 95.5 F L 84 16 122/60 H 02/28/20 08:28 02/28/20 08:28 02/28/20 08:28 02/28/20 08:28 Assessment/Plan Active Problems Chronic ulcer of right leg (Chronic) 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 Treatment Course Number Number of HBO Treatments 50 Ordered Treatment Course Number 1 Treatment # 20 Chamber # 1 Chamber Type Monoplace Diabetes - Detail Diabetes Diabetes Type II Other - Detail Compromised/Failed Flap/Graft Yes: right knee (specify site in comment) Treatment Plan PATRICIA (Atmospheric Absolute) 2 Number of Minutes 90 Number of Air Breaks 0
[2020-03-01 08:01] LABS: Bedside Glucose 170 mg/dL (70-110)
[2020-03-01 09:49] VITALS: BP 133/56; BP 135/71; PULSE 53; PULSE 71; RESP 16; TEMP 35.9; TEMP 36.2
[2020-03-01 10:05] LABS: Bedside Glucose 152 mg/dL (70-110)
--- NOTE | 2020-03-01 10:51 | HBO.PN.PCM_ITS ---
History of Present Illness Date of Service: 03/01/20 Presenting Chief Complaint: Nonhealing ulcer right inferior knee s/p polyethylene exchange and gastrocnemius muscle flap reconstruction on 11/29/19 with compromise to the overlying skin graft and nonhealing ulcer right posterior leg. RAJESH CARRENO is a 59 year old currently undergoing hyperbaric oxygen therapy for a failing/compromised right medial gastrocnemius muscular rotation flap. Progress: Today's session represents the 21st session of hyperbaric oxygen therapy, of an expected 50 such treatments. Tolerance of hyperbaric oxygen therapy: Hyperbaric oxygen therapy was administered as per the facility's protocol. Hyperbaric oxygen therapy was administered for 90 minutes at 2 tahir, with no air breaks. The patient tolerated hyperbaric oxygen therapy well, without complaints or complications. Upon emergence from the hyperbaric chamber, the patient's vital signs remained stable. The patient was discharged in good condition. Blood glucose levels before and after hyperbaric oxygen therapy are documented elsewhere. 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, sequela (Chronic) Nonhealing ulcer of right lower extremity with fat layer exposed (Chronic) Nonhealing ulcer right inferior knee by tibial tubercle History of DVT (deep vein thrombosis) (Chronic) Septic arthritis of knee, right (Chronic) Hx of total knee replacement (Chronic) right Restless leg (Chronic) RENNY (obstructive sleep apnea) (Chronic) Hypothyroidism (Chronic) Diverticulosis of colon without diverticulitis (Chronic) Depression (Chronic) Postphlebitic syndrome with inflammation (Chronic) Lumbar disc disease (Chronic) History of Graves' disease (Chronic) Diabetes mellitus (Chronic) Renal insufficiency (Chronic) Presence of IVC filter (Chronic) Obesity (Chronic) Edema leg (Chronic) Leg swelling (Chronic) DVT of lower extremity (deep venous thrombosis) (Chronic) Allergies/Adverse Reactions: Allergies hydrocodone bitartrate [From Lortab] Allergy (Intermediate, Verified 09/06/19 07:31) Other lips swell, ataxia etodolac Allergy (Verified 09/06/19 07:31) Unknown misoprostol Allergy (Verified 09/06/19 07:31) Unknown celecoxib Adverse Reaction (Intermediate, Verified 09/06/19 07:31) Other heart palpitations diclofenac [Diclofenac] Adverse Reaction (Mild, Verified 09/06/19 07:31) Abd cramps/diarrhea ketorolac tromethamine [From Toradol] Adverse Reaction (Mild, Verified 09/06/19 07:31) Other balance issues metoclopramide HCl [From Reglan] Adverse Reaction (Mild, Verified 09/06/19 07:31) Other worsens restless leg atorvastatin [From Lipitor] Adverse Reaction (Verified 09/06/19 07:31) Other FACE SPASMS clindamycin Adverse Reaction (Verified 09/06/19 07:31) Mucosal lesions Home Medications: Ambulatory Orders Medication Instructions Recorded Levothyroxine [Synthroid] 175 mcg PO DAILY 09/01/13 Omeprazole [Prilosec] 20 mg PO DAILY 12/13/16 Cholecalciferol (Vitamin D3) 5,000 unit PO DAILY@1200 01/25/17 [Vitamin D3] [place]-3 Fatty Acids/Fish Oil [Fish 2,000 mg PO LUNCH 03/21/18 Oil 1,000 mg Capsule] Gabapentin 800 mg PO BID 08/01/18 Gabapentin [Neurontin] 1,200 mg PO QHS 08/01/18 Lisinopril [Zestril] 10 mg PO LUNCH 08/01/18 Pramipexole Di-HCl [Pramipexole 1 mg PO LUNCH 08/01/18 Dihydrochloride] Pramipexole Di-HCl [Pramipexole 1.5 tab PO QHS 08/01/18 Dihydrochloride] Venlafaxine HCl [Effexor Xr] 1 tab PO DAILY 08/01/18 Venlafaxine HCl [Venlafaxine HCl 1 tab PO DAILY 08/01/18 ER] Aspirin [Aspir-Low] 81 mg PO LUNCH 05/02/19 Famotidine [Pepcid] 40 mg PO QHS 05/02/19 Ferrous Sulfate 325 mg PO DAILY 08/30/19 Ascorbic Acid [Vitamin C] 500 mg PO LUNCH 11/28/19 Doxycycline 100 mg PO BID 11/28/19 Montelukast [Singulair] 10 mg PO QHS 11/28/19 Pramipexole Di-HCl [Mirapex] 0.5 mg PO DAILY 11/28/19 Voriconazole 200 mg PO BID 11/28/19 Acetaminophen [Tylenol] 1,000 mg PO Q8 tab 12/04/19 Senna/Docusate Sodium [Senokot-S] 2 tab PO BID tab 12/04/19 Maternal Family History: Heart Disease, Hypertension Paternal Family History: Heart Disease, Hypertension Sibling Family History: Cancer, Diabetes, Hypertension, - Smoking Status: Former smoker Physical Exam Vital Signs Temp Pulse Resp BP 96.7 F L 71 16 135/71 H 03/01/20 09:49 03/01/20 09:49 03/01/20 09:49 03/01/20 09:49 General: Alert, Oriented x3, Cooperative, No apparent distress Psych/Mental Status: Normal Affect, Appropriate Assessment/Plan Active Problems Chronic ulcer of right leg (Chronic) 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 Treatment Course Number Number of HBO Treatments 50 Ordered Treatment Course Number 1 Treatment # 21 Chamber # 1 Chamber Type Monoplace Diabetes - Detail Diabetes Diabetes Type II Other - Detail Compromised/Failed Flap/Graft Yes: right knee (specify site in comment) Treatment Plan PATRICIA (Atmospheric Absolute) 2 Number of Minutes 90 Number of Air Breaks 0
[2020-03-04 08:00] LABS: Bedside Glucose 167 mg/dL (70-110)
[2020-03-04 08:38] VITALS: BP 113/60; BP 118/56; PULSE 76; PULSE 78; RESP 16; RESP 17; TEMP 36; TEMP 36.1
--- NOTE | 2020-03-04 08:45 | PCM.HBO.PN ---
History of Present Illness Date of Service: 03/04/20 Presenting Chief Complaint: Nonhealing ulcer right inferior knee s/p polyethylene exchange and gastrocnemius muscle flap reconstruction on 11/29/19 with compromise to the overlying skin graft and nonhealing ulcer right posterior leg. RAJESH CARRENO is a 59 year old currently undergoing hyperbaric oxygen therapy for a failing/compromised right medial gastrocnemius muscular rotation flap. Progress: Today's session represents the 22nd session of hyperbaric oxygen therapy, of an expected 50 such treatments. Tolerance of hyperbaric oxygen therapy: Hyperbaric oxygen therapy was administered as per the facility's protocol. Hyperbaric oxygen therapy was administered for 90 minutes at 2 tahir, with no air breaks. The patient tolerated hyperbaric oxygen therapy well, without complaints or complications. Upon emergence from the hyperbaric chamber, the patient's vital signs remained stable. The patient was discharged in good condition. Blood glucose levels before and after hyperbaric oxygen therapy are documented elsewhere. 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, sequela (Chronic) Nonhealing ulcer of right lower extremity with fat layer exposed (Chronic) Nonhealing ulcer right inferior knee by tibial tubercle History of DVT (deep vein thrombosis) (Chronic) Septic arthritis of knee, right (Chronic) Hx of total knee replacement (Chronic) right Restless leg (Chronic) RENNY (obstructive sleep apnea) (Chronic) Hypothyroidism (Chronic) Diverticulosis of colon without diverticulitis (Chronic) Depression (Chronic) Postphlebitic syndrome with inflammation (Chronic) Lumbar disc disease (Chronic) History of Graves' disease (Chronic) Diabetes mellitus (Chronic) Renal insufficiency (Chronic) Presence of IVC filter (Chronic) Obesity (Chronic) Edema leg (Chronic) Leg swelling (Chronic) DVT of lower extremity (deep venous thrombosis) (Chronic) Allergies/Adverse Reactions: Allergies hydrocodone bitartrate [From Lortab] Allergy (Intermediate, Verified 09/06/19 07:31) Other lips swell, ataxia etodolac Allergy (Verified 09/06/19 07:31) Unknown misoprostol Allergy (Verified 09/06/19 07:31) Unknown celecoxib Adverse Reaction (Intermediate, Verified 09/06/19 07:31) Other heart palpitations diclofenac [Diclofenac] Adverse Reaction (Mild, Verified 09/06/19 07:31) Abd cramps/diarrhea ketorolac tromethamine [From Toradol] Adverse Reaction (Mild, Verified 09/06/19 07:31) Other balance issues metoclopramide HCl [From Reglan] Adverse Reaction (Mild, Verified 09/06/19 07:31) Other worsens restless leg atorvastatin [From Lipitor] Adverse Reaction (Verified 09/06/19 07:31) Other FACE SPASMS clindamycin Adverse Reaction (Verified 09/06/19 07:31) Mucosal lesions Home Medications: Ambulatory Orders Medication Instructions Recorded Levothyroxine [Synthroid] 175 mcg PO DAILY 09/01/13 Omeprazole [Prilosec] 20 mg PO DAILY 12/13/16 Cholecalciferol (Vitamin D3) 5,000 unit PO DAILY@1200 01/25/17 [Vitamin D3] [place]-3 Fatty Acids/Fish Oil [Fish 2,000 mg PO LUNCH 03/21/18 Oil 1,000 mg Capsule] Gabapentin 800 mg PO BID 08/01/18 Gabapentin [Neurontin] 1,200 mg PO QHS 08/01/18 Lisinopril [Zestril] 10 mg PO LUNCH 08/01/18 Pramipexole Di-HCl [Pramipexole 1 mg PO LUNCH 08/01/18 Dihydrochloride] Pramipexole Di-HCl [Pramipexole 1.5 tab PO QHS 08/01/18 Dihydrochloride] Venlafaxine HCl [Effexor Xr] 1 tab PO DAILY 08/01/18 Venlafaxine HCl [Venlafaxine HCl 1 tab PO DAILY 08/01/18 ER] Aspirin [Aspir-Low] 81 mg PO LUNCH 05/02/19 Famotidine [Pepcid] 40 mg PO QHS 05/02/19 Ferrous Sulfate 325 mg PO DAILY 08/30/19 Ascorbic Acid [Vitamin C] 500 mg PO LUNCH 11/28/19 Doxycycline 100 mg PO BID 11/28/19 Montelukast [Singulair] 10 mg PO QHS 11/28/19 Pramipexole Di-HCl [Mirapex] 0.5 mg PO DAILY 11/28/19 Voriconazole 200 mg PO BID 11/28/19 Acetaminophen [Tylenol] 1,000 mg PO Q8 tab 12/04/19 Senna/Docusate Sodium [Senokot-S] 2 tab PO BID tab 12/04/19 Maternal Family History: Heart Disease, Hypertension Paternal Family History: Heart Disease, Hypertension Sibling Family History: Cancer, Diabetes, Hypertension, - Smoking Status: Former smoker Physical Exam Vital Signs Temp Pulse Resp BP 96.8 F L 78 16 113/60 03/04/20 08:38 03/04/20 08:38 03/04/20 08:38 03/04/20 08:38 General: Alert, Oriented x3, Cooperative, No apparent distress HEENT: Atraumatic, TM's Clear Lungs: Clear to auscultation, Normal air movement Cardiovascular: Regular rate, Regular Rhythm Psych/Mental Status: Normal Affect, Appropriate, Alert and oriented to time, place, person, mood and affect Assessment/Plan Active Problems Chronic ulcer of right leg (Chronic) 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
[2020-03-04 10:16] LABS: Bedside Glucose 156 mg/dL (70-110)
[2020-03-04 10:22] VITALS: BP 113/60; PULSE 78; RESP 16; BMI 45.3
--- NOTE | 2020-03-04 12:46 | PN.PCM_ITS ---
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 Status: Chronic Code(s): L97.912 - Non-pressure chronic ulcer of unspecified part of right lower leg with fat layer exposed Comment: Nonhealing ulcer right inferior knee by tibial tubercle (3) Diabetes mellitus with skin ulcer Status: Chronic Code(s): E11.622 - Type 2 diabetes mellitus with other skin ulcer; L98.499 - Non-pressure chronic ulcer of skin of other sites with unspecified severity (4) Diabetes mellitus Status: Chronic Qualifiers: Diabetes mellitus type: type 2 Code(s): E11.9 - Type 2 diabetes mellitus without complications (5) History of right knee joint replacement Status: Chronic Code(s): Z96.651 - Presence of right artificial knee joint (6) Edema leg Status: Chronic Code(s): R60.0 - Localized edema Type of Wound Date of Service: 03/04/20 Chief Complaint: Nonhealing ulcer right inferior knee s/p polyethylene exchange and gastrocnemius muscle flap reconstruction on 11/29/19 with compromise to the overlying skin graft and nonhealing ulcer right posterior leg. History of Wound: Surgery 11/29/19 - Irrigation debridement with polyethylene exchange right total knee and excision sinus tract right knee by Dr Barton. 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 Lazaro. Wound care - Epifix #2 applied today to both the knee and posterior ulcer covered by wound veil. Operative culture - negative. Currently on Doxycycline and Voriconazole. Prealbumin on 11/30/19 was 24.7. Encourage nutritional supplementation with protein to help the healing process. Today she denies fever. Her appetite is good. She is ambulating ok. She doesn't need the knee brace and occasionally will use the walker. She has burning nerve pain and tingling in the area of the sural nerve distribution. She is noticing improvement with the Neurontin. She has started HBO treatments for compromise to the skin graft and is tolerating the treatments. Progress of Wound: Patient tolerating HBOT well for her compromised skin graft. Muscle flap is healed. Skin graft/ulcer on right knee is improved. Nonhealing ulcer right posterior leg is also improved. - Physical Exam Vital Signs Temp Pulse Resp BP 96.8 F L 78 16 113/60 03/04/20 08:38 03/04/20 10:22 03/04/20 10:22 03/04/20 10:22 General: Alert, Oriented x3, Cooperative HEENT: Atraumatic Oral: Moist Mucosa Lungs: Normal air movement Cardiovascular: Regular rate Extremities: Capillary Refill Less than 3 Seconds, Edema Skin: Ulcer/ Wound - Subcutaneous tissue and slough Wound Measurements and Assessment WC - Nurse 1 - General Ulcer Measurement Start: 02/05/20 10:21 Freq: Status: Active Protocol: Activity Type Activity Date Activity User E-Sign Co-Sign Detail Recorded Client Recorded Date Recorded By Document 03/04/20 10:22 [facility] [id number] 03/04/20 10:25 [facility] 03/04/20 10:22 Wound Center Nurse 1 [Ulcer Assessment] #4 R Post calf -Combined with other wound No -Current Size (cm) - Length 4.4 -Current Size (cm) - Width 0.5 -Current Size (cm) - Depth 0.3 -Total Square Cm 2.20 -Photo Taken No -Epithelialization None Present -Tunneling No -Undermining/Tunneling No -Circular Undermining No -Exudate Amt Medium -Exudate Type Serosanguineous -Wound Margin Distinct, Outline Attached -Granulation Amt Medium (34-66%) -Granulation Quality Red -Slough/Fibrin Yes -Necrosis Amt Medium (34-66%) -Necrotic Tissue Type Adherent Slough -Texture (Aileen-wound Skin Appearance) Assessed, Scarring -Moisture (Aileen-wound Skin Appearance Assessed,Dry/ ) Scaly -Color (Aileen-wound Skin Appearance) Assessed -Temperature (Aileen-wound Skin No Abnormality Appearance) (Pt Warm) -Tenderness on Palpation (Alieen-wound No Skin Appearance) -Ulcer Cleansing soapy water -Foul Odor after Cleansing No -Anesthetic Used 4% Lidocaine Solution 3-right knee graft site -Combined with other wound No -Current Size (cm) - Length 7.8 -Current Size (cm) - Width 3 -Current Size (cm) - Depth 0.2 -Total Square Cm 23.4 -Photo Taken No -Epithelialization Small 1-33% -Tunneling No -Undermining/Tunneling No -Circular Undermining No -Exudate Amt Medium -Exudate Type Serosanguineous -Wound Margin Distinct, Outline Attached -Granulation Amt Medium (34-66%) -Granulation Quality Red -Slough/Fibrin Yes -Necrosis Amt Medium (34-66%) -Necrotic Tissue Type Adherent Slough -Texture (Aileen-wound Skin Appearance) Assessed, Scarring -Moisture (Aileen-wound Skin Appearance Assessed,Dry/ ) Scaly -Color (Aileen-wound Skin Appearance) Assessed -Temperature (Aileen-wound Skin No Abnormality Appearance) (Pt Warm) -Tenderness on Palpation (Aileen-wound No Skin Appearance) -Ulcer Cleansing soapy water -Foul Odor after Cleansing No -Anesthetic Used 4% Lidocaine Solution WC - Nurse 2 - General Ulcer CM Notes Start: 02/05/20 10:21 Freq: Status: Active Protocol: Activity Type Activity Date Activity User E-Sign Co-Sign Detail Recorded Client Recorded Date Recorded By Document 03/04/20 10:33 [facility] [id number] 03/04/20 10:47 [facility] 03/04/20 10:33 Wound Center Nurse 2 [Procedure/Treatment] #4 R Post calf -Time 10:35 -Correct Patient Yes -Correct Side, Site, Position Yes -Correct Procedure Yes -Procedure Performed Yes -Type of Procedure Debridement -Clinical Debridement Subcutaneous -Tissue Removed Subcutaneous -Post Debridement (cm) - Length 1.5 -Post Debridement (cm) - Width 0.6 -Post Debridement (cm) - Depth 0.5 -Total Square (Post) (cm) 0.90 -Area of Debridement (cm) - Length 1.5 -Area of Debridement (cm) - Width 0.6 -Total Square (Area) (cm) 0.90 -Tunneling No -Undermining/Tunneling No -Circular Undermining No -Wound/Ulcer Outcome Not Healed -Ulcer Cleansing Rinsed/ Irrigated with Saline -Foul Odor after Cleansing No -Bioengineered Tissue No -Bleeding Controlled with Pressure -Other saline [id number] -Offloading No -Treatment Response Procedure Tolerated Well -Debridement - Subq, 1st 20sq cm Yes 3-right knee graft site -Time 10:36 -Correct Patient Yes -Correct Side, Site, Position Yes -Correct Procedure Yes -Procedure Performed Yes -Type of Procedure Debridement -Clinical Debridement Subcutaneous -Tissue Removed Subcutaneous -Post Debridement (cm) - Length 8.7 -Post Debridement (cm) - Width 4.0 -Post Debridement (cm) - Depth 0.2 -Total Square (Post) (cm) 34.80 -Area of Debridement (cm) - Length 8.7 -Area of Debridement (cm) - Width 4.0 -Total Square (Area) (cm) 34.80 -Tunneling No -Undermining/Tunneling No -Circular Undermining No -Wound/Ulcer Outcome Not Healed -Ulcer Cleansing Rinsed/ Irrigated with Saline -Foul Odor after Cleansing No -Bioengineered Tissue Yes -Type of Bioengineered Tissue Epifix Mesh -Expiration Date 12/04/24 -Product Lot Number [id number] -Percent Used 100 -Bleeding Controlled with Pressure -Other saline [id number] -Offloading No -Treatment Response Procedure Tolerated Well -Debridement - Subq, 1st 20sq cm No -Apply Skin Sub - 1st 25 sq cm - Legs 1 -Apply Skin Sub - each addt'l 25 sq 1 cm - Legs -Epifix Mesh (per sq cm) 11 [See Physician Procedure note for Specifics] Pain Scale: 0-10 Numeric [Pain] -Is Patient Pain Free? Yes - Nurse 3 - General Ulcer D/C NN Start: 02/05/20 10:21 Freq: Status: Active Protocol: Activity Type Activity Date Activity User E-Sign Co-Sign Detail Recorded Client Recorded Date Recorded By Document 03/04/20 11:16 [facility] [id number] 03/04/20 11:16 [facility] 03/04/20 11:16 Wound Care Nurse 3 [Wound Dressing] #4 R Post calf -Other Dressing epimesh per yvon -Primary Dressing Covered/Secured Dry Gauze & with Roll Gauze, Secured with Tape,Other -Other Covering abd 3-right knee graft site -Primary Dressing Applied Other -Other Dressing epimesh per yvon -Primary Dressing Covered/Secured Dry Gauze & with Roll Gauze, Secured with Tape,Other -Other Covering abd [Compression Applied] Right -Compression Wrap Roger Wrap - Visit Discharge [Visit Discharge Information] -Discharge Condition Stable -Ambulatory Status Ambulatory -Transportation Private Auto Musculoskeletal: Tenderness Neurological: Cranial nerves II-XII grossly intact Psych/Mental Status: Normal Affect, Appropriate Debridement Note Post-Debridement Measurements/Treatment WC - Nurse 2 - General Ulcer CM Notes Start: 02/05/20 10:21 Freq: Status: Active Protocol: Activity Type Activity Date Activity User E-Sign Co-Sign Detail Recorded Client Recorded Date Recorded By Document 02/05/20 10:49 [id number] 02/05/20 11:01 Document 02/12/20 10:58 [id number] 02/12/20 11:03 Document 02/19/20 10:30 [id number] 02/19/20 10:33 Document 02/26/20 13:48 [id number] 02/26/20 14:00 Document 03/04/20 10:33 [id number] 03/04/20 10:47 02/05/20 02/12/20 02/19/20 10:49 10:58 10:30 Wound Center Nurse 2 #4 R Post calf -Time 10:53 10:58 10:30 -Correct Patient Yes Yes Yes -Correct Side, Site, Position Yes Yes Yes -Correct Procedure Yes Yes Yes -Procedure Performed Yes Yes Yes -Type of Procedure Debridement Debridement Debridement -Clinical Debridement Subcutaneous Subcutaneous Subcutaneous -Tissue Removed Subcutaneous Subcutaneous Subcutaneous -Post Debridement (cm) - Length 3.3 3.2 2.5 -Post Debridement (cm) - Width 1.0 1.0 0.8 -Post Debridement (cm) - Depth 0.5 0.6 0.5 -Total Square (Post) (cm) 3.30 3.20 2.00 -Area of Debridement (cm) - Length 3.3 3.0 2.5 -Area of Debridement (cm) - Width 1.0 1.0 0.8 -Total Square (Area) (cm) 3.30 3.00 2.00 -Tunneling No No No -Undermining/Tunneling No No No -Circular Undermining No No No -Wound/Ulcer Outcome Not Healed Not Healed Not Healed -Ulcer Cleansing Rinsed/ Rinsed/ Rinsed/ Irrigated with Irrigated with Irrigated with Saline Saline Saline -Foul Odor after Cleansing No No No -Bioengineered Tissue No No No -Type of Bioengineered Tissue -Expiration Date -Product Lot Number -Percent Used -Saline Lot Number -Bleeding Controlled with Pressure Pressure Pressure -Other -Offloading No No No -Treatment Response Procedure Procedure Procedure Tolerated Well Tolerated Well Tolerated Well -Debridement - Subq, 1st 20sq cm No No No -Apply Skin Sub - 1st 25 sq cm - Legs -Epifix Mesh (per sq cm) 3-right knee graft site -Time 10:50 10:59 10:30 -Correct Patient Yes Yes Yes -Correct Side, Site, Position Yes Yes Yes -Correct Procedure Yes Yes Yes -Procedure Performed Yes Yes Yes -Type of Procedure Debridement Debridement Debridement -Clinical Debridement Subcutaneous Subcutaneous Subcutaneous -Tissue Removed Subcutaneous Subcutaneous Subcutaneous -Post Debridement (cm) - Length 9.3 9.0 9.2 -Post Debridement (cm) - Width 4.5 4.3 4.2 -Post Debridement (cm) - Depth 0.2 0.2 0.2 -Total Square (Post) (cm) 41.85 38.70 38.64 -Area of Debridement (cm) - Length 9.3 9.0 9.2 -Area of Debridement (cm) - Width 4.5 4.3 4.0 -Total Square (Area) (cm) 41.85 38.70 36.80 -Tunneling No No No -Undermining/Tunneling No No No -Circular Undermining No No No -Wound/Ulcer Outcome Not Healed Not Healed Not Healed -Ulcer Cleansing Rinsed/ Rinsed/ Rinsed/ Irrigated with Irrigated with Irrigated with Saline Saline Saline -Foul Odor after Cleansing No No No -Bioengineered Tissue No No No -Type of Bioengineered Tissue -Expiration Date -Product Lot Number -Percent Used -Bleeding Controlled with Pressure Pressure Pressure -Other -Offloading No No No -Treatment Response Procedure Procedure Procedure Tolerated Well Tolerated Well Tolerated Well -Debridement - Subq, 1st 20sq cm Yes Yes Yes -Debridement, SubQ, ea addt'l 20sq cm 2 2 1 or part thereof -Apply Skin Sub - 1st 25 sq cm - Legs -Apply Skin Sub - each addt'l 25 sq cm - Legs -Epifix Mesh (per sq cm) Pain Scale: 0-10 Numeric Is Patient Pain Free? Yes Yes Yes 02/26/20 03/04/20 13:48 10:33 Wound Center Nurse 2 #4 R Post calf -Time 13:51 10:35 -Correct Patient Yes Yes -Correct Side, Site, Position Yes Yes -Correct Procedure Yes Yes -Procedure Performed Yes Yes -Type of Procedure Debridement Debridement -Clinical Debridement Subcutaneous Subcutaneous -Tissue Removed Subcutaneous Subcutaneous -Post Debridement (cm) - Length 2.4 1.5 -Post Debridement (cm) - Width 1.2 0.6 -Post Debridement (cm) - Depth 0.6 0.5 -Total Square (Post) (cm) 2.88 0.90 -Area of Debridement (cm) - Length 2.4 1.5 -Area of Debridement (cm) - Width 1.2 0.6 -Total Square (Area) (cm) 2.88 0.90 -Tunneling No No -Undermining/Tunneling No No -Circular Undermining No No -Wound/Ulcer Outcome Not Healed Not Healed -Ulcer Cleansing Rinsed/ Rinsed/ Irrigated with Irrigated with Saline Saline -Foul Odor after Cleansing No No -Bioengineered Tissue Yes No -Type of Bioengineered Tissue Epifix Mesh -Expiration Date 12/04/24 -Product Lot Number [id number] -Percent Used 100 -Saline Lot Number [id number] -Bleeding Controlled with Pressure Pressure -Other saline [id number] saline [id number] -Offloading No No -Treatment Response Procedure Procedure Tolerated Well Tolerated Well -Debridement - Subq, 1st 20sq cm No Yes -Apply Skin Sub - 1st 25 sq cm - Legs 1 -Epifix Mesh (per sq cm) 11 3-right knee graft site -Time 13:57 10:36 -Correct Patient Yes Yes -Correct Side, Site, Position Yes Yes -Correct Procedure Yes Yes -Procedure Performed Yes Yes -Type of Procedure Debridement Debridement -Clinical Debridement Subcutaneous Subcutaneous -Tissue Removed Subcutaneous Subcutaneous -Post Debridement (cm) - Length 8.5 8.7 -Post Debridement (cm) - Width 5.2 4.0 -Post Debridement (cm) - Depth 0.1 0.2 -Total Square (Post) (cm) 44.20 34.80 -Area of Debridement (cm) - Length 8.5 8.7 -Area of Debridement (cm) - Width 5.2 4.0 -Total Square (Area) (cm) 44.20 34.80 -Tunneling No No -Undermining/Tunneling No No -Circular Undermining No No -Wound/Ulcer Outcome Not Healed Not Healed -Ulcer Cleansing Rinsed/ Rinsed/ Irrigated with Irrigated with Saline Saline -Foul Odor after Cleansing No No -Bioengineered Tissue Yes Yes -Type of Bioengineered Tissue Epifix Mesh Epifix Mesh -Expiration Date 12/04/24 12/04/24 -Product Lot Number [id number] -Percent Used 100 100 -Bleeding Controlled with Pressure Pressure -Other saline [id number] saline [id number] -Offloading No No -Treatment Response Procedure Procedure Tolerated Well Tolerated Well -Debridement - Subq, 1st 20sq cm No No -Debridement, SubQ, ea addt'l 20sq cm or part thereof -Apply Skin Sub - 1st 25 sq cm - Legs 1 -Apply Skin Sub - each addt'l 25 sq cm 1 - Legs -Epifix Mesh (per sq cm) 0 11 Pain Scale: 0-10 Numeric Is Patient Pain Free? Yes Yes - Nurse 3 - General Ulcer D/C NN Start: 02/05/20 10:21 Freq: Status: Active Protocol: Activity Type Activity Date Activity User E-Sign Co-Sign Detail Recorded Client Recorded Date Recorded By Document 02/05/20 11:16 [facility] [id number] 02/05/20 11:18 [facility] Document 02/06/20 10:19 JF [id number] 02/06/20 10:22 JF Document 02/09/20 10:25 JF [id number] 02/09/20 10:29 JF Document 02/12/20 11:12 BM [id number] 02/12/20 11:13 [facility] Document 02/13/20 11:05 MS [id number] 02/13/20 11:21 MS Document 02/19/20 10:44 DL [id number] 02/19/20 10:45 DL Document 02/26/20 14:04 JF [id number] 02/26/20 14:04 JF Document 03/04/20 11:16 [facility] [id number] 03/04/20 11:16 [facility] 02/05/20 02/06/20 02/09/20 11:16 10:19 10:25 Wound Care Nurse 3 #4 R Post calf -Ulcer Cleansing Rinsed/ Irrigated with Saline -Foul Odor after Cleansing No -Primary Dressing Applied NonAdherent Contact Layer, Promogran Tayla Matter -Other Dressing -Primary Dressing Covered/Secured with Dry Gauze & Roll Gauze, Secured with Tape,Other -Other Covering abd -Promogran Tayla Matter 2 3-right knee graft site -Ulcer Cleansing Rinsed/ Irrigated with Saline -Foul Odor after Cleansing No -Primary Dressing Applied NonAdherent Contact Layer, Promogran Tayla Matter -Other Dressing -Primary Dressing Covered/Secured with Dry Gauze & Roll Gauze, Secured with Tape,Other -Other Covering abd -Promogran Tayla Matter 0 Right -Compression Wrap Treatment Response Procedure Tolerated Well Vital Signs Pulse Rate (60-100) 75 Pulse Location Monitor Respiratory Rate (12-18) 16 Respiratory rate source Observation Oxygen Delivery Method Room Air Blood Pressure (90/60-120/80) 147/96 H Blood Pressure Mean (mm Hg) 113 Source Monitor Position Sitting Pain Scale: 0-10 Numeric Is Patient Pain Free? Yes Yes Yes WC - Visit Discharge Discharge Condition Stable Stable Stable Ambulatory Status Ambulatory Ambulatory Ambulatory Transportation Private Auto Private Auto Private Auto Accompanied by hospital transportation Medication Reconcilliation completed & No Yes provided to patient/care provider Clinical Summary of Care Provided No Yes Notes: 02/12/20 02/13/20 02/19/20 11:12 11:05 10:44 Wound Care Nurse 3 #4 R Post calf -Ulcer Cleansing Rinsed/ Rinsed/ Irrigated with Irrigated with Saline Saline -Foul Odor after Cleansing No No -Primary Dressing Applied C Hydrogel ($), C Hydrogel ($) NonAdherent Contact Layer -Other Dressing -Primary Dressing Covered/Secured with Dry Gauze & Dry Gauze & Roll Gauze, Roll Gauze, Secured with Secured with Tape,Other Tape -Other Covering abd ABD/ROGER -Promogran Tayla Matter 3-right knee graft site -Ulcer Cleansing Rinsed/ Rinsed/ Irrigated with Irrigated with Saline Saline -Foul Odor after Cleansing No No -Primary Dressing Applied NonAdherent Contact Layer, Other -Other Dressing hydrogel HYDROGEL -Primary Dressing Covered/Secured with Dry Gauze & Roll Gauze, Secured with Tape,Other -Other Covering abd ABD/ROGER -Promogran Tayla Matter Right -Compression Wrap Roger Wrap Treatment Response Procedure Tolerated Well Vital Signs Pulse Rate (60-100) Pulse Location Respiratory Rate (12-18) Respiratory rate source Oxygen Delivery Method Blood Pressure (90/60-120/80) Blood Pressure Mean (mm Hg) Source Position Pain Scale: 0-10 Numeric Is Patient Pain Free? Yes Yes Yes WC - Visit Discharge Discharge Condition Stable Stable Stable Ambulatory Status Ambulatory Ambulatory Ambulatory Transportation Private Auto Private Auto Accompanied by hospital Medication Reconcilliation completed & No provided to patient/care provider Clinical Summary of Care Provided No Notes: Dressing applied per [employer] today. 02/26/20 03/04/20 14:04 11:16 Wound Care Nurse 3 #4 R Post calf -Ulcer Cleansing Rinsed/ Irrigated with Saline -Foul Odor after Cleansing No -Primary Dressing Applied -Other Dressing epimesh per yvon -Primary Dressing Covered/Secured with Dry Gauze & Dry Gauze & Roll Gauze, Roll Gauze, Secured with Secured with Tape Tape,Other -Other Covering abd -Promogran Tayla Matter 3-right knee graft site -Ulcer Cleansing Rinsed/ Irrigated with Saline -Foul Odor after Cleansing No -Primary Dressing Applied Other -Other Dressing epimesh per yvon -Primary Dressing Covered/Secured with Dry Gauze & Dry Gauze & Roll Gauze, Roll Gauze, Secured with Secured with Tape Tape,Other -Other Covering abd -Promogran Tayla Matter Right -Compression Wrap Roger Wrap Roger Wrap Treatment Response Vital Signs Pulse Rate (60-100) Pulse Location Respiratory Rate (12-18) Respiratory rate source Oxygen Delivery Method Blood Pressure (90/60-120/80) Blood Pressure Mean (mm Hg) Source Position Pain Scale: 0-10 Numeric Is Patient Pain Free? Yes WC - Visit Discharge Discharge Condition Stable Stable Ambulatory Status Ambulatory Ambulatory Transportation Private Auto Private Auto Accompanied by Medication Reconcilliation completed & Yes provided to patient/care provider Clinical Summary of Care Provided Yes Notes: Wound debrided: knee ulcer cluster Laterality: Right Type of Debridement: Excisional debridement Anesthesia Used: 5% Lidocaine Gel Depth: Down to and including healthy tissue, in the subcutaneous layer Percentage of wound debrided: 100 Instrument Used: 3mm curette Tissue Removed: Subcutaneous tissue and slough Severity: Fat Layer Exposed Amount of bleeding with debridement: Mild Bleeding Controlled with: Pressure Patient tolerated procedure well - Additional Wound Wound debrided: posterior leg ulcer Laterality: Right Type of Debridement: Excisional debridement Anesthesia Used: 5% Lidocaine Gel Depth: Down to and including healthy tissue, in the subcutaneous layer Percentage of wound debrided: 100 Instrument Used: 3mm curette Tissue Removed: Subcutaneous tissue and slough Severity: Fat Layer Exposed Amount of bleeding with debridement: Mild Bleeding Controlled with: Pressure Patient tolerated procedure: Patient tolerated procedure well Assessment/Plan Active Problems Chronic ulcer of right leg (Chronic) 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 Nonhealing ulcer right inferior knee by tibial tubercle. 2. History of revision replacement right knee. 3. History of right TKA infection. 4. Former smoker. 5. Sural nerve injury right posterior leg. 6. 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 7. Nonhealing ulcer right posterior leg. 8. Mild skin graft compromise right inferior knee. Plan: Muscle flap is healing satisfactory. Skin graft shows good adherence and vascular ingrowth. About 80% take. Mild scattered areas of skin graft compr omise noted. Is showing benefit from HBO therapy to improve the salvage of the skin graft. She has completed her first round of HBO treatments and has had a renewal of 20 additional treatments. She is showing improvement in her ulcers. Wound care: Epifix #2 applied to the right knee and right posterior leg ucler, covered with adaptic wound veil. Secured with steri strips. 100% of product was used. Continue ROGER wrap for compression. She doesn't wear the knee brace anymore. Continue Doxycycline and Voriconazole. Prealbumin from 11/30/19 was 24.7. Encourage nutritional supplementation with protein to help the healing process. Followup 1 week. She exhibits good range of motion with her right knee as she can bend it almost 75-80 degrees. [id number]: [id number] Skin sub graft trnk/arm/leg
== END 2020-03-04 23:59 ==
LOC: WC 08:00
PROVIDERS: PCP Family Medicine; Referring Provider Surgery; Visit Provider Surgery
DX: T86.828 Other complications of skin graft (allograft) (autograft) (principal); L97.812 Non-pressure chronic ulcer of other part of right lower leg with fat layer exposed; T81.31XA Disruption of external operation (surgical) wound, not elsewhere classified, initial encounter; T84.53XA Infection and inflammatory reaction due to internal right knee prosthesis, initial encounter; Y79.2 Prosthetic and other implants, materials and accessory orthopedic devices associated with adverse incidents; Z86.718 Personal history of other venous thrombosis and embolism; Z96.651 Presence of right artificial knee joint; E66.9 Obesity, unspecified; R60.0 Localized edema; G47.33 Obstructive sleep apnea (adult) (pediatric); E11.622 Type 2 diabetes mellitus with other skin ulcer; R20.2 Paresthesia of skin; M79.89 Other specified soft tissue disorders; Z87.891 Personal history of nicotine dependence; E03.9 Hypothyroidism, unspecified; Z79.899 Other long term (current) drug therapy; F32.9 Major depressive disorder, single episode, unspecified
CPT/HCPCS: 11042; 11045; 15271; 15272; 82962; 99183; Q4186; G0277

== ENCOUNTER → 2020-03-15 07:38 | Outpatient (CLI) | payer BC, SELFPAY ==
[2020-03-11 10:07] VITALS: BMI 45.3
[2020-03-15 08:41] LABS: Erythrocyte Sedimentation Rate 31 mm/hr (0-30); Hematocrit 44.1 % (37-47); Hemoglobin 13.5 g/dL (12.0-15.0); Mean Corp Hgb Conc 30.6 g/dL (32-36); Mean Corpuscular Hgb 26.3 pg (27.0-32.0); Mean Corpuscular Volume 85.8 fL (81-99); Mean Platelet Vol. 10.3 fl (6.2-12.0); Platelet Count 239 K/mm3 (150-450); RBC Distribution Width CV 15.5 % (11.6-14.6); RBC Distribution Width SD 48.6 fl (35.1-43.9); Red Blood Count 5.14 M/mm3 (4.2-5.4); White Blood Count 8.7 K/mm3 (4.4-11.0)
[2020-03-15 09:06] LABS: AST(SGOT) 20 U/L (15-37); Alanine Aminotransfer ALT/SGPT 28 U/L (13-56); Albumin, Serum 3.8 g/dL (3.2-5.0); Alkaline Phosphatase 166 U/L (45-117); Anion Gap 4 (5-15); BUN 18 mg/dL (7-18); BUN/Creat Ratio 23.9 RATIO (10-20); Chloride 109 mmol/L (98-107); Creatinine, Serum 0.75 mg/dL (0.55-1.02); EST Glomerular Filtration Rate 83 mL/min (>60); Est Glom Filt Rate - Afr Amer 101 mL/min (>60); Globulin 3.7 g/dL (2.2-4.2); Glucose 118 mg/dL (74-106); Protein, Total 7.5 g/dL (6.4-8.2); Sodium Level 142 mmol/L (136-145)
== END ==
PROVIDERS: PCP Family Medicine; Referring Provider Internal Medicine Infectious Disease; Visit Provider Internal Medicine Infectious Disease
DX: T84.59XA Infection and inflammatory reaction due to other internal joint prosthesis, initial encounter (principal); Y79.2 Prosthetic and other implants, materials and accessory orthopedic devices associated with adverse incidents; Z96.659 Presence of unspecified artificial knee joint
CPT/HCPCS: 36415; 80048; 80076; 85027; 85652

== ENCOUNTER 2020-04-01 08:45 | Outpatient (RCR) | payer BC, SELFPAY ==
[2020-03-05 00:23] VITALS: BP 118/56; PULSE 76; RESP 17; TEMP 36.1
[2020-03-05 08:41] LABS: Bedside Glucose 152 mg/dL (70-110)
[2020-03-05 09:00] VITALS: BP 112/59; BP 148/76; PULSE 80; PULSE 85; RESP 16; TEMP 36.1; TEMP 36.2
[2020-03-05 10:16] LABS: Bedside Glucose 141 mg/dL (70-110)
--- NOTE | 2020-03-05 13:50 | PCM.HBO.PN ---
History of Present Illness Date of Service: 03/05/20 Presenting Chief Complaint: Nonhealing ulcer right inferior knee s/p polyethylene exchange and gastrocnemius muscle flap reconstruction on 11/29/19 with compromise to the overlying skin graft and nonhealing ulcer right posterior leg. RAJESH CARRENO is a 59 year old currently undergoing hyperbaric oxygen therapy for a failing/compromised right medial gastrocnemius muscular rotation flap. Progress: This represents the 23rd hyperbaric oxygen therapy session of an anticipated 50 such sessions. Tolerance of hyperbaric oxygen therapy: Hyperbaric oxygen therapy was administered as per the facility's protocol. Hyperbaric oxygen therapy was administered for 90 minutes at 2 tahir with no air breaks. Patient tolerated hyperbaric oxygen therapy well, without complaints or complications. Upon emergence from the hyperbaric chamber, the patient's vital signs remained stable. The patient was discharged in good condition. Blood glucose levels were documented elsewhere both before and after hyperbaric oxygen therapy. 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, sequela (Chronic) Nonhealing ulcer of right lower extremity with fat layer exposed (Chronic) Nonhealing ulcer right inferior knee by tibial tubercle History of DVT (deep vein thrombosis) (Chronic) Septic arthritis of knee, right (Chronic) Hx of total knee replacement (Chronic) right Restless leg (Chronic) RENNY (obstructive sleep apnea) (Chronic) Hypothyroidism (Chronic) Diverticulosis of colon without diverticulitis (Chronic) Depression (Chronic) Postphlebitic syndrome with inflammation (Chronic) Lumbar disc disease (Chronic) History of Graves' disease (Chronic) Diabetes mellitus (Chronic) Renal insufficiency (Chronic) Presence of IVC filter (Chronic) Obesity (Chronic) Edema leg (Chronic) Leg swelling (Chronic) DVT of lower extremity (deep venous thrombosis) (Chronic) Allergies/Adverse Reactions: Allergies hydrocodone bitartrate [From Lortab] Allergy (Intermediate, Verified 09/06/19 07:31) Other lips swell, ataxia etodolac Allergy (Verified 09/06/19 07:31) Unknown misoprostol Allergy (Verified 09/06/19 07:31) Unknown celecoxib Adverse Reaction (Intermediate, Verified 09/06/19 07:31) Other heart palpitations diclofenac [Diclofenac] Adverse Reaction (Mild, Verified 09/06/19 07:31) Abd cramps/diarrhea ketorolac tromethamine [From Toradol] Adverse Reaction (Mild, Verified 09/06/19 07:31) Other balance issues metoclopramide HCl [From Reglan] Adverse Reaction (Mild, Verified 09/06/19 07:31) Other worsens restless leg atorvastatin [From Lipitor] Adverse Reaction (Verified 09/06/19 07:31) Other FACE SPASMS clindamycin Adverse Reaction (Verified 09/06/19 07:31) Mucosal lesions Home Medications: Ambulatory Orders Medication Instructions Recorded Levothyroxine [Synthroid] 175 mcg PO DAILY 09/01/13 Omeprazole [Prilosec] 20 mg PO DAILY 12/13/16 Cholecalciferol (Vitamin D3) 5,000 unit PO DAILY@1200 01/25/17 [Vitamin D3] [place]-3 Fatty Acids/Fish Oil [Fish 2,000 mg PO LUNCH 03/21/18 Oil 1,000 mg Capsule] Gabapentin 800 mg PO BID 08/01/18 Gabapentin [Neurontin] 1,200 mg PO QHS 08/01/18 Lisinopril [Zestril] 10 mg PO LUNCH 08/01/18 Pramipexole Di-HCl [Pramipexole 1 mg PO LUNCH 08/01/18 Dihydrochloride] Pramipexole Di-HCl [Pramipexole 1.5 tab PO QHS 08/01/18 Dihydrochloride] Venlafaxine HCl [Effexor Xr] 1 tab PO DAILY 08/01/18 Venlafaxine HCl [Venlafaxine HCl 1 tab PO DAILY 08/01/18 ER] Aspirin [Aspir-Low] 81 mg PO LUNCH 05/02/19 Famotidine [Pepcid] 40 mg PO QHS 05/02/19 Ferrous Sulfate 325 mg PO DAILY 08/30/19 Ascorbic Acid [Vitamin C] 500 mg PO LUNCH 11/28/19 Doxycycline 100 mg PO BID 11/28/19 Montelukast [Singulair] 10 mg PO QHS 11/28/19 Pramipexole Di-HCl [Mirapex] 0.5 mg PO DAILY 11/28/19 Voriconazole 200 mg PO BID 11/28/19 Acetaminophen [Tylenol] 1,000 mg PO Q8 tab 12/04/19 Senna/Docusate Sodium [Senokot-S] 2 tab PO BID tab 12/04/19 Maternal Family History: Heart Disease, Hypertension Paternal Family History: Heart Disease, Hypertension Sibling Family History: Cancer, Diabetes, Hypertension, - Smoking Status: Former smoker Physical Exam Vital Signs Temp Pulse Resp BP 96.9 F L 85 16 148/76 H 03/05/20 09:00 03/05/20 09:00 03/05/20 09:00 03/05/20 09:00 General: Alert, Oriented x3, Cooperative, No apparent distress, Well developed, Well nourished HEENT: Atraumatic, PERRLA, EOMI, Normocephalic Lungs: Normal air movement Psych/Mental Status: Normal Affect, Appropriate, Alert and oriented to time, place, person, mood and affect Assessment/Plan Patient appears to be tolerating hyperbaric oxygen therapy well, which will be continued as per the patient's medical plan. Treatment Course Number Number of HBO Treatments 50 Ordered Treatment Course Number 1 Treatment # 23 Chamber # 1 Chamber Type Monoplace Diabetes - Detail Diabetes Diabetes Type II Left Extremity Other - Detail Compromised/Failed Flap/Graft Yes: right knee (specify site in comment) Treatment Plan PATRICIA (Atmospheric Absolute) 2 Number of Minutes 90 Number of Air Breaks 0
[2020-03-06 08:20] VITALS: BP 109/65; BP 139/70; PULSE 81; PULSE 84; RESP 16; TEMP 36.3; TEMP 36.6
[2020-03-06 08:40] LABS: Bedside Glucose 168 mg/dL (70-110)
[2020-03-06 09:55] LABS: Bedside Glucose 183 mg/dL (70-110)
--- NOTE | 2020-03-06 10:27 | HBO.PN.PCM_ITS ---
History of Present Illness Date of Service: 03/06/20 Presenting Chief Complaint: Nonhealing ulcer right inferior knee s/p polyethylene exchange and gastrocnemius muscle flap reconstruction on 11/29/19 with compromise to the overlying skin graft and nonhealing ulcer right posterior leg. RAJESH CARRENO is a 59 year old currently undergoing hyperbaric oxygen therapy for a failing/compromised right medial gastrocnemius muscular rotation flap. Progress: This represents the 24th hyperbaric oxygen therapy session of an anticipated 50 such sessions. Tolerance of hyperbaric oxygen therapy: Hyperbaric oxygen therapy was administered as per the facility's protocol. Hyperbaric oxygen therapy was administered for 90 minutes at 2 tahir with no air breaks. Patient tolerated hyperbaric oxygen therapy well, without complaints or complications. Upon emergence from the hyperbaric chamber, the patient's vital signs remained stable. The patient was discharged in good condition. Blood glucose levels were documented elsewhere both before and after hyperbaric oxygen therapy. 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, sequela (Chronic) Nonhealing ulcer of right lower extremity with fat layer exposed (Chronic) Nonhealing ulcer right inferior knee by tibial tubercle History of DVT (deep vein thrombosis) (Chronic) Septic arthritis of knee, right (Chronic) Hx of total knee replacement (Chronic) right Restless leg (Chronic) RENNY (obstructive sleep apnea) (Chronic) Hypothyroidism (Chronic) Diverticulosis of colon without diverticulitis (Chronic) Depression (Chronic) Postphlebitic syndrome with inflammation (Chronic) Lumbar disc disease (Chronic) History of Graves' disease (Chronic) Diabetes mellitus (Chronic) Renal insufficiency (Chronic) Presence of IVC filter (Chronic) Obesity (Chronic) Edema leg (Chronic) Leg swelling (Chronic) DVT of lower extremity (deep venous thrombosis) (Chronic) Allergies/Adverse Reactions: Allergies hydrocodone bitartrate [From Lortab] Allergy (Intermediate, Verified 09/06/19 07:31) Other lips swell, ataxia etodolac Allergy (Verified 09/06/19 07:31) Unknown misoprostol Allergy (Verified 09/06/19 07:31) Unknown celecoxib Adverse Reaction (Intermediate, Verified 09/06/19 07:31) Other heart palpitations diclofenac [Diclofenac] Adverse Reaction (Mild, Verified 09/06/19 07:31) Abd cramps/diarrhea ketorolac tromethamine [From Toradol] Adverse Reaction (Mild, Verified 09/06/19 07:31) Other balance issues metoclopramide HCl [From Reglan] Adverse Reaction (Mild, Verified 09/06/19 07:31) Other worsens restless leg atorvastatin [From Lipitor] Adverse Reaction (Verified 09/06/19 07:31) Other FACE SPASMS clindamycin Adverse Reaction (Verified 09/06/19 07:31) Mucosal lesions Home Medications: Ambulatory Orders Medication Instructions Recorded Levothyroxine [Synthroid] 175 mcg PO DAILY 09/01/13 Omeprazole [Prilosec] 20 mg PO DAILY 12/13/16 Cholecalciferol (Vitamin D3) 5,000 unit PO DAILY@1200 01/25/17 [Vitamin D3] [place]-3 Fatty Acids/Fish Oil [Fish 2,000 mg PO LUNCH 03/21/18 Oil 1,000 mg Capsule] Gabapentin 800 mg PO BID 08/01/18 Gabapentin [Neurontin] 1,200 mg PO QHS 08/01/18 Lisinopril [Zestril] 10 mg PO LUNCH 08/01/18 Pramipexole Di-HCl [Pramipexole 1 mg PO LUNCH 08/01/18 Dihydrochloride] Pramipexole Di-HCl [Pramipexole 1.5 tab PO QHS 08/01/18 Dihydrochloride] Venlafaxine HCl [Effexor Xr] 1 tab PO DAILY 08/01/18 Venlafaxine HCl [Venlafaxine HCl 1 tab PO DAILY 08/01/18 ER] Aspirin [Aspir-Low] 81 mg PO LUNCH 05/02/19 Famotidine [Pepcid] 40 mg PO QHS 05/02/19 Ferrous Sulfate 325 mg PO DAILY 08/30/19 Ascorbic Acid [Vitamin C] 500 mg PO LUNCH 11/28/19 Doxycycline 100 mg PO BID 11/28/19 Montelukast [Singulair] 10 mg PO QHS 11/28/19 Pramipexole Di-HCl [Mirapex] 0.5 mg PO DAILY 11/28/19 Voriconazole 200 mg PO BID 11/28/19 Acetaminophen [Tylenol] 1,000 mg PO Q8 tab 12/04/19 Senna/Docusate Sodium [Senokot-S] 2 tab PO BID tab 12/04/19 Maternal Family History: Heart Disease, Hypertension Paternal Family History: Heart Disease, Hypertension Sibling Family History: Cancer, Diabetes, Hypertension, - Smoking Status: Former smoker Physical Exam Vital Signs Temp Pulse Resp BP 97.4 F L 84 16 139/70 H 03/06/20 08:20 03/06/20 08:20 03/06/20 08:20 03/06/20 08:20 Assessment/Plan Patient appears to be tolerating hyperbaric oxygen therapy well, which will be continued as per the patient's medical plan. Treatment Course Number Number of HBO Treatments 50 Ordered Treatment Course Number 1 Treatment # 24 Chamber # 1 Chamber Type Monoplace Diabetes - Detail Diabetes Diabetes Type II Left Extremity Other - Detail Compromised/Failed Flap/Graft Yes: right knee (specify site in comment) Treatment Plan PATRICIA (Atmospheric Absolute) 2 Number of Minutes 90 Number of Air Breaks 0
[2020-03-07 07:51] LABS: Bedside Glucose 178 mg/dL (70-110)
[2020-03-07 08:28] VITALS: BP 126/63; BP 148/81; PULSE 77; PULSE 88; RESP 16; TEMP 35.6; TEMP 35.7
--- NOTE | 2020-03-07 09:05 | PCM.HBO.PN ---
History of Present Illness Date of Service: 03/07/20 Presenting Chief Complaint: Nonhealing ulcer right inferior knee s/p polyethylene exchange and gastrocnemius muscle flap reconstruction on 11/29/19 with compromise to the overlying skin graft and nonhealing ulcer right posterior leg. RAJESH CARRENO is a 59 year old currently undergoing hyperbaric oxygen therapy for a failing/compromised right medial gastrocnemius muscular rotation flap. Progress: This represents the 25th hyperbaric oxygen therapy session of an anticipated 50 such sessions. Tolerance of hyperbaric oxygen therapy: Hyperbaric oxygen therapy was administered as per the facility's protocol. Hyperbaric oxygen therapy was administered for 90 minutes at 2 tahir with no air breaks. Patient tolerated hyperbaric oxygen therapy well, without complaints or complications. Upon emergence from the hyperbaric chamber, the patient's vital signs remained stable. The patient was discharged in good condition. 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, sequela (Chronic) Nonhealing ulcer of right lower extremity with fat layer exposed (Chronic) Nonhealing ulcer right inferior knee by tibial tubercle History of DVT (deep vein thrombosis) (Chronic) Septic arthritis of knee, right (Chronic) Hx of total knee replacement (Chronic) right Restless leg (Chronic) RENNY (obstructive sleep apnea) (Chronic) Hypothyroidism (Chronic) Diverticulosis of colon without diverticulitis (Chronic) Depression (Chronic) Postphlebitic syndrome with inflammation (Chronic) Lumbar disc disease (Chronic) History of Graves' disease (Chronic) Diabetes mellitus (Chronic) Renal insufficiency (Chronic) Presence of IVC filter (Chronic) Obesity (Chronic) Edema leg (Chronic) Leg swelling (Chronic) DVT of lower extremity (deep venous thrombosis) (Chronic) Allergies/Adverse Reactions: Allergies hydrocodone bitartrate [From Lortab] Allergy (Intermediate, Verified 09/06/19 07:31) Other lips swell, ataxia etodolac Allergy (Verified 09/06/19 07:31) Unknown misoprostol Allergy (Verified 09/06/19 07:31) Unknown celecoxib Adverse Reaction (Intermediate, Verified 09/06/19 07:31) Other heart palpitations diclofenac [Diclofenac] Adverse Reaction (Mild, Verified 09/06/19 07:31) Abd cramps/diarrhea ketorolac tromethamine [From Toradol] Adverse Reaction (Mild, Verified 09/06/19 07:31) Other balance issues metoclopramide HCl [From Reglan] Adverse Reaction (Mild, Verified 09/06/19 07:31) Other worsens restless leg atorvastatin [From Lipitor] Adverse Reaction (Verified 09/06/19 07:31) Other FACE SPASMS clindamycin Adverse Reaction (Verified 09/06/19 07:31) Mucosal lesions Home Medications: Ambulatory Orders Medication Instructions Recorded Levothyroxine [Synthroid] 175 mcg PO DAILY 09/01/13 Omeprazole [Prilosec] 20 mg PO DAILY 12/13/16 Cholecalciferol (Vitamin D3) 5,000 unit PO DAILY@1200 01/25/17 [Vitamin D3] [place]-3 Fatty Acids/Fish Oil [Fish 2,000 mg PO LUNCH 03/21/18 Oil 1,000 mg Capsule] Gabapentin 800 mg PO BID 08/01/18 Gabapentin [Neurontin] 1,200 mg PO QHS 08/01/18 Lisinopril [Zestril] 10 mg PO LUNCH 08/01/18 Pramipexole Di-HCl [Pramipexole 1 mg PO LUNCH 08/01/18 Dihydrochloride] Pramipexole Di-HCl [Pramipexole 1.5 tab PO QHS 08/01/18 Dihydrochloride] Venlafaxine HCl [Effexor Xr] 1 tab PO DAILY 08/01/18 Venlafaxine HCl [Venlafaxine HCl 1 tab PO DAILY 08/01/18 ER] Aspirin [Aspir-Low] 81 mg PO LUNCH 05/02/19 Famotidine [Pepcid] 40 mg PO QHS 05/02/19 Ferrous Sulfate 325 mg PO DAILY 08/30/19 Ascorbic Acid [Vitamin C] 500 mg PO LUNCH 11/28/19 Doxycycline 100 mg PO BID 11/28/19 Montelukast [Singulair] 10 mg PO QHS 11/28/19 Pramipexole Di-HCl [Mirapex] 0.5 mg PO DAILY 11/28/19 Voriconazole 200 mg PO BID 11/28/19 Acetaminophen [Tylenol] 1,000 mg PO Q8 tab 08/31/20 Senna/Docusate Sodium [Senokot-S] 2 tab PO BID tab 12/04/19 Maternal Family History: Heart Disease, Hypertension Paternal Family History: Heart Disease, Hypertension Sibling Family History: Cancer, Diabetes, Hypertension, - Smoking Status: Former smoker Physical Exam Vital Signs Temp Pulse Resp BP 96.1 F L 88 16 148/81 H 03/07/20 08:28 03/07/20 08:28 03/07/20 08:28 03/07/20 08:28 General: Alert, Oriented x3, Cooperative, No apparent distress HEENT: Atraumatic, Normocephalic Lungs: Normal air movement Psych/Mental Status: Normal Affect Assessment/Plan Patient appears to be tolerating hyperbaric oxygen therapy well, which will be continued as per the patient's medical plan. Treatment Course Number Number of HBO Treatments 50 Ordered Treatment Course Number 1 Treatment # 25 Chamber # 1 Chamber Type Monoplace Diabetes - Detail Diabetes Diabetes Type II Left Extremity Other - Detail Compromised/Failed Flap/Graft Yes: right knee (specify site in comment) Treatment Plan PATRICIA (Atmospheric Absolute) 2 Number of Minutes 90 Number of Air Breaks 0 HBO Supervision
[2020-03-07 10:06] LABS: Bedside Glucose 192 mg/dL (70-110)
[2020-03-08 07:50] LABS: Bedside Glucose 175 mg/dL (70-110)
[2020-03-08 08:31] VITALS: BP 137/69; BP 148/81; PULSE 78; PULSE 89; RESP 16; TEMP 35.6; TEMP 35.8
[2020-03-08 10:00] LABS: Bedside Glucose 141 mg/dL (70-110)
--- NOTE | 2020-03-08 12:50 | PCM.HBO.PN ---
History of Present Illness Date of Service: 03/08/20 Presenting Chief Complaint: Nonhealing ulcer right inferior knee s/p polyethylene exchange and gastrocnemius muscle flap reconstruction on 11/29/19 with compromise to the overlying skin graft and nonhealing ulcer right posterior leg. RAJESH CARRENO is a 59 year old currently undergoing hyperbaric oxygen therapy for a failing/compromised right medial gastrocnemius muscular rotation flap. Progress: This represents the 26th hyperbaric oxygen therapy session of an anticipated 50 such sessions. Tolerance of hyperbaric oxygen therapy: Hyperbaric oxygen therapy was administered as per the facility's protocol. Hyperbaric oxygen therapy was administered for 90 minutes at 2 tahir with no air breaks. Patient tolerated hyperbaric oxygen therapy well, without complaints or complications. Upon emergence from the hyperbaric chamber, the patient's vital signs remained stable. The patient was discharged in good condition. 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, sequela (Chronic) Nonhealing ulcer of right lower extremity with fat layer exposed (Chronic) Nonhealing ulcer right inferior knee by tibial tubercle History of DVT (deep vein thrombosis) (Chronic) Septic arthritis of knee, right (Chronic) Hx of total knee replacement (Chronic) right Restless leg (Chronic) RENNY (obstructive sleep apnea) (Chronic) Hypothyroidism (Chronic) Diverticulosis of colon without diverticulitis (Chronic) Depression (Chronic) Postphlebitic syndrome with inflammation (Chronic) Lumbar disc disease (Chronic) History of Graves' disease (Chronic) Diabetes mellitus (Chronic) Renal insufficiency (Chronic) Presence of IVC filter (Chronic) Obesity (Chronic) Edema leg (Chronic) Leg swelling (Chronic) DVT of lower extremity (deep venous thrombosis) (Chronic) Allergies/Adverse Reactions: Allergies hydrocodone bitartrate [From Lortab] Allergy (Intermediate, Verified 09/06/19 07:31) Other lips swell, ataxia etodolac Allergy (Verified 09/06/19 07:31) Unknown misoprostol Allergy (Verified 09/06/19 07:31) Unknown celecoxib Adverse Reaction (Intermediate, Verified 09/06/19 07:31) Other heart palpitations diclofenac [Diclofenac] Adverse Reaction (Mild, Verified 09/06/19 07:31) Abd cramps/diarrhea ketorolac tromethamine [From Toradol] Adverse Reaction (Mild, Verified 09/06/19 07:31) Other balance issues metoclopramide HCl [From Reglan] Adverse Reaction (Mild, Verified 09/06/19 07:31) Other worsens restless leg atorvastatin [From Lipitor] Adverse Reaction (Verified 09/06/19 07:31) Other FACE SPASMS clindamycin Adverse Reaction (Verified 09/06/19 07:31) Mucosal lesions Home Medications: Ambulatory Orders Medication Instructions Recorded Levothyroxine [Synthroid] 175 mcg PO DAILY 09/01/13 Omeprazole [Prilosec] 20 mg PO DAILY 12/13/16 Cholecalciferol (Vitamin D3) 5,000 unit PO DAILY@1200 01/25/17 [Vitamin D3] [place]-3 Fatty Acids/Fish Oil [Fish 2,000 mg PO LUNCH 03/21/18 Oil 1,000 mg Capsule] Gabapentin 800 mg PO BID 08/01/18 Gabapentin [Neurontin] 1,200 mg PO QHS 08/01/18 Lisinopril [Zestril] 10 mg PO LUNCH 08/01/18 Pramipexole Di-HCl [Pramipexole 1 mg PO LUNCH 08/01/18 Dihydrochloride] Pramipexole Di-HCl [Pramipexole 1.5 tab PO QHS 08/01/18 Dihydrochloride] Venlafaxine HCl [Effexor Xr] 1 tab PO DAILY 08/01/18 Venlafaxine HCl [Venlafaxine HCl 1 tab PO DAILY 08/01/18 ER] Aspirin [Aspir-Low] 81 mg PO LUNCH 05/02/19 Famotidine [Pepcid] 40 mg PO QHS 05/02/19 Ferrous Sulfate 325 mg PO DAILY 08/30/19 Ascorbic Acid [Vitamin C] 500 mg PO LUNCH 11/28/19 Doxycycline 100 mg PO BID 11/28/19 Montelukast [Singulair] 10 mg PO QHS 11/28/19 Pramipexole Di-HCl [Mirapex] 0.5 mg PO DAILY 11/28/19 Voriconazole 200 mg PO BID 11/28/19 Acetaminophen [Tylenol] 1,000 mg PO Q8 tab 12/04/19 Senna/Docusate Sodium [Senokot-S] 2 tab PO BID tab 12/04/19 Maternal Family History: Heart Disease, Hypertension Paternal Family History: Heart Disease, Hypertension Sibling Family History: Cancer, Diabetes, Hypertension, - Smoking Status: Former smoker Physical Exam Vital Signs Temp Pulse Resp BP 96.0 F L 89 16 148/81 H 03/08/20 08:31 03/08/20 08:31 03/08/20 08:31 03/08/20 08:31 General: Alert, Oriented x3, Cooperative, No apparent distress Psych/Mental Status: Normal Affect, Appropriate Assessment/Plan Patient appears to be tolerating hyperbaric oxygen therapy well, which will be continued as per the patient's medical plan. Treatment Course Number Number of HBO Treatments 50 Ordered Treatment Course Number 1 Treatment # 26 Chamber # 1 Chamber Type Monoplace Diabetes - Detail Diabetes Diabetes Type II Left Extremity Other - Detail Compromised/Failed Flap/Graft Yes: right knee (specify site in comment) Treatment Plan PATRICIA (Atmospheric Absolute) 2 Number of Minutes 90 Number of Air Breaks 0
[2020-03-11 08:23] VITALS: BP 155/57; BP 156/79; PULSE 74; PULSE 81; RESP 16; RESP 18; TEMP 36; TEMP 36.1
--- NOTE | 2020-03-11 08:32 | PCM.HBO.PN ---
History of Present Illness Date of Service: 03/11/20 Presenting Chief Complaint: Nonhealing ulcer right inferior knee s/p polyethylene exchange and gastrocnemius muscle flap reconstruction on 11/29/19 with compromise to the overlying skin graft and nonhealing ulcer right posterior leg. RAJESH CARRENO is a 59 year old currently undergoing hyperbaric oxygen therapy for a failing/compromised right medial gastrocnemius muscular rotation flap. Progress: This represents the 27th hyperbaric oxygen therapy session of an anticipated 50 such sessions. Tolerance of hyperbaric oxygen therapy: Hyperbaric oxygen therapy was administered as per the facility's protocol. Hyperbaric oxygen therapy was administered for 90 minutes at 2 tahir with no air breaks. Patient tolerated hyperbaric oxygen therapy well, without complaints or complications. Upon emergence from the hyperbaric chamber, the patient's vital signs remained stable. The patient was discharged in good condition. 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, sequela (Chronic) Nonhealing ulcer of right lower extremity with fat layer exposed (Chronic) Nonhealing ulcer right inferior knee by tibial tubercle History of DVT (deep vein thrombosis) (Chronic) Septic arthritis of knee, right (Chronic) Hx of total knee replacement (Chronic) right Restless leg (Chronic) RENNY (obstructive sleep apnea) (Chronic) Hypothyroidism (Chronic) Diverticulosis of colon without diverticulitis (Chronic) Depression (Chronic) Postphlebitic syndrome with inflammation (Chronic) Lumbar disc disease (Chronic) History of Graves' disease (Chronic) Diabetes mellitus (Chronic) Renal insufficiency (Chronic) Presence of IVC filter (Chronic) Obesity (Chronic) Edema leg (Chronic) Leg swelling (Chronic) DVT of lower extremity (deep venous thrombosis) (Chronic) Allergies/Adverse Reactions: Allergies hydrocodone bitartrate [From Lortab] Allergy (Intermediate, Verified 09/06/19 07:31) Other lips swell, ataxia etodolac Allergy (Verified 09/06/19 07:31) Unknown misoprostol Allergy (Verified 09/06/19 07:31) Unknown celecoxib Adverse Reaction (Intermediate, Verified 09/06/19 07:31) Other heart palpitations diclofenac [Diclofenac] Adverse Reaction (Mild, Verified 09/06/19 07:31) Abd cramps/diarrhea ketorolac tromethamine [From Toradol] Adverse Reaction (Mild, Verified 09/06/19 07:31) Other balance issues metoclopramide HCl [From Reglan] Adverse Reaction (Mild, Verified 09/06/19 07:31) Other worsens restless leg atorvastatin [From Lipitor] Adverse Reaction (Verified 09/06/19 07:31) Other FACE SPASMS clindamycin Adverse Reaction (Verified 09/06/19 07:31) Mucosal lesions Home Medications: Ambulatory Orders Medication Instructions Recorded Levothyroxine [Synthroid] 175 mcg PO DAILY 09/01/13 Omeprazole [Prilosec] 20 mg PO DAILY 12/13/16 Cholecalciferol (Vitamin D3) 5,000 unit PO DAILY@1200 01/25/17 [Vitamin D3] [place]-3 Fatty Acids/Fish Oil [Fish 2,000 mg PO LUNCH 03/21/18 Oil 1,000 mg Capsule] Gabapentin 800 mg PO BID 08/01/18 Gabapentin [Neurontin] 1,200 mg PO QHS 08/01/18 Lisinopril [Zestril] 10 mg PO LUNCH 08/01/18 Pramipexole Di-HCl [Pramipexole 1 mg PO LUNCH 08/01/18 Dihydrochloride] Pramipexole Di-HCl [Pramipexole 1.5 tab PO QHS 08/01/18 Dihydrochloride] Venlafaxine HCl [Effexor Xr] 1 tab PO DAILY 08/01/18 Venlafaxine HCl [Venlafaxine HCl 1 tab PO DAILY 08/01/18 ER] Aspirin [Aspir-Low] 81 mg PO LUNCH 05/02/19 Famotidine [Pepcid] 40 mg PO QHS 05/02/19 Ferrous Sulfate 325 mg PO DAILY 08/30/19 Ascorbic Acid [Vitamin C] 500 mg PO LUNCH 11/28/19 Doxycycline 100 mg PO BID 11/28/19 Montelukast [Singulair] 10 mg PO QHS 11/28/19 Pramipexole Di-HCl [Mirapex] 0.5 mg PO DAILY 11/28/19 Voriconazole 200 mg PO BID 11/28/19 Acetaminophen [Tylenol] 1,000 mg PO Q8 tab 12/04/19 Senna/Docusate Sodium [Senokot-S] 2 tab PO BID tab 12/04/19 Maternal Family History: Heart Disease, Hypertension Paternal Family History: Heart Disease, Hypertension Sibling Family History: Cancer, Diabetes, Hypertension, - Smoking Status: Former smoker Physical Exam Vital Signs Temp Pulse Resp BP 96.9 F L 81 16 156/79 H 03/11/20 08:23 03/11/20 08:23 03/11/20 08:23 03/11/20 08:23 General: Alert, Oriented x3, Cooperative, No apparent distress HEENT: Atraumatic, TM's Clear Lungs: Clear to auscultation, Normal air movement Cardiovascular: Regular rate, Regular Rhythm Psych/Mental Status: Normal Affect, Appropriate, Alert and oriented to time, place, person, mood and affect Assessment/Plan Treatment Course Number Number of HBO Treatments 50 Ordered Treatment Course Number 1 Treatment # 27 Chamber # 1 Chamber Type Monoplace Diabetes - Detail Diabetes Diabetes Type II Left Extremity Other - Detail Compromised/Failed Flap/Graft Yes: right knee (specify site in comment) Treatment Plan PATRICIA (Atmospheric Absolute) 2 Number of Minutes 90 Number of Air Breaks 0
[2020-03-11 10:05] LABS: Bedside Glucose 150 mg/dL (70-110)
[2020-03-11 10:07] VITALS: BP 150/57; PULSE 74; RESP 18; TEMP 36; BMI 45.3
[2020-03-11 10:10] LABS: Bedside Glucose 126 mg/dL (70-110)
--- NOTE | 2020-03-11 13:05 | PN.PCM_ITS ---
(1) Chronic ulcer of right leg Status: Chronic Code(s): L97.919 - Non-pressure chronic ulcer of unspecified part of right lower leg with unspecified severity (2) Diabetes mellitus with skin ulcer Status: Chronic Code(s): E11.622 - Type 2 diabetes mellitus with other skin ulcer; L98.499 - Non-pressure chronic ulcer of skin of other sites with unspecified severity (3) Former smoker Status: Chronic Code(s): Z87.891 - Personal history of nicotine dependence (4) History of right knee joint replacement Status: Chronic Code(s): Z96.651 - Presence of right artificial knee joint (5) Edema leg Status: Chronic Code(s): R60.0 - Localized edema Type of Wound Date of Service: 03/11/20 Chief Complaint: Nonhealing ulcer right inferior knee s/p polyethylene exchange and gastrocnemius muscle flap reconstruction on 11/29/19 with compromise to the overlying skin graft and nonhealing ulcer right posterior leg. History of Wound: Surgery 11/29/19 - Irrigation debridement with polyethylene exchange right total knee and excision sinus tract right knee by Dr Barton. 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 Lazaro. Wound care - Epifix #3 applied today to both the knee covered by wound veil. Posterior ulcer daily silver. Operative culture - negative. Currently on Doxycycline and Voriconazole. Prealbumin on 11/30/19 was 24.7. Encourage nutritional supplementation with protein to help the healing process. Today she denies fever. Her appetite is good. She is ambulating ok. She doesn't need the knee brace and occasionally will use the walker. She has burning nerve pain and tingling in the area of the sural nerve distribution. She is noticing improvement with the Neurontin. She has started HBO treatments for compromise to the skin graft and is tolerating the treatments. Progress of Wound: Patient tolerating HBOT well for her compromised skin graft. Muscle flap is healed. Skin graft/ulcer on right knee is improved. Nonhealing ulcer right posterior leg is stable. - Physical Exam Vital Signs Temp Pulse Resp BP 96.8 F L 74 18 150/57 H 03/11/20 10:07 03/11/20 10:07 03/11/20 10:07 03/11/20 10:07 General: Alert, Oriented x3, Cooperative HEENT: Atraumatic Oral: Moist Mucosa Lungs: Normal air movement Cardiovascular: Regular rate Extremities: Capillary Refill Less than 3 Seconds, Edema Skin: Ulcer/ Wound - Right knee ulcer and the right posterior ulcer is improving. Wound Measurements and Assessment WC - Nurse 1 - General Ulcer Measurement Start: 03/05/20 08:56 Freq: Status: Active Protocol: Activity Type Activity Date Activity User E-Sign Co-Sign Detail Recorded Client Recorded Date Recorded By Document 03/11/20 10:07 DL [id number] 03/11/20 10:20 DL 03/11/20 10:07 Wound Center Nurse 1 [Ulcer Assessment] #4 R Post calf -Current Size (cm) - Length 5 -Current Size (cm) - Width 0.8 -Current Size (cm) - Depth 0.1 -Total Square Cm 4.0 -Photo Taken No -Exudate Amt None Present -Wound Margin Flat & Intact -Granulation Amt Large (67-100%) -Necrosis Amt Large (67-100%) -Necrotic Tissue Type Adherent Slough -Structure Exposed N/A -Texture (Aileen-wound Skin Appearance) Scarring -Moisture (Aileen-wound Skin Appearance Dry/Scaly ) -Color (Aileen-wound Skin Appearance) Hemosiderin Staining -Temperature (Aileen-wound Skin No Abnormality Appearance) (Pt Warm) -Tenderness on Palpation (Aileen-wound No Skin Appearance) -Ulcer Cleansing Wound Cleanser -Foul Odor after Cleansing No -Anesthetic Used 5% Lidocaine Gel 3-right knee graft site -Current Size (cm) - Length 8 -Current Size (cm) - Width 2.8 -Current Size (cm) - Depth 0.1 -Total Square Cm 22.4 -Photo Taken No -Exudate Amt Small -Exudate Type Serosanguineous -Wound Margin Indistinct, Non -Visible -Granulation Amt Small (1-33%) -Granulation Quality [place] -Necrosis Amt Large (67-100%) -Necrotic Tissue Type Adherent Slough -Structure Exposed N/A -Texture (Aileen-wound Skin Appearance) Scarring -Moisture (Aileen-wound Skin Appearance Dry/Scaly ) -Color (Aileen-wound Skin Appearance) No Abnormality, Hemosiderin Staining -Temperature (Aileen-wound Skin No Abnormality Appearance) (Pt Warm) -Tenderness on Palpation (Aileen-wound No Skin Appearance) -Ulcer Cleansing Wound Cleanser -Foul Odor after Cleansing No -Anesthetic Used 5% Lidocaine Gel WC - Nurse 2 - General Ulcer CM Notes Start: 03/05/20 08:56 Freq: Status: Active Protocol: Activity Type Activity Date Activity User E-Sign Co-Sign Detail Recorded Client Recorded Date Recorded By Document 03/11/20 10:43 ALETA [id number] 03/11/20 11:01 ALETA 03/11/20 10:43 Wound Center Nurse 2 [Procedure/Treatment] #4 R Post calf -Time 10:45 -Correct Patient Yes -Correct Side, Site, Position Yes -Correct Procedure Yes -Procedure Performed Yes -Type of Procedure Debridement -Clinical Debridement Subcutaneous -Tissue Removed Subcutaneous -Post Debridement (cm) - Length 1.8 -Post Debridement (cm) - Width 0.7 -Post Debridement (cm) - Depth 0.4 -Total Square (Post) (cm) 1.26 -Area of Debridement (cm) - Length 1.8 -Area of Debridement (cm) - Width 0.7 -Total Square (Area) (cm) 1.26 -Tunneling No -Undermining/Tunneling No -Circular Undermining No -Wound/Ulcer Outcome Not Healed -Ulcer Cleansing Rinsed/ Irrigated with Saline -Foul Odor after Cleansing No -Bioengineered Tissue No -Bleeding Controlled with Pressure -Offloading No -Treatment Response Procedure Tolerated Well -Debridement - Subq, 1st 20sq cm Yes 3-right knee graft site -Time 10:45 -Correct Patient Yes -Correct Side, Site, Position Yes -Correct Procedure Yes -Procedure Performed Yes -Type of Procedure Debridement -Clinical Debridement Subcutaneous -Tissue Removed Subcutaneous -Post Debridement (cm) - Length 8.5 -Post Debridement (cm) - Width 3.6 -Post Debridement (cm) - Depth 0.2 -Total Square (Post) (cm) 30.60 -Area of Debridement (cm) - Length 8.5 -Area of Debridement (cm) - Width 3.6 -Total Square (Area) (cm) 30.60 -Tunneling No -Undermining/Tunneling No -Circular Undermining No -Wound/Ulcer Outcome Not Healed -Ulcer Cleansing Rinsed/ Irrigated with Saline -Foul Odor after Cleansing No -Bioengineered Tissue Yes -Type of Bioengineered Tissue Epifix -Expiration Date 10/03/24 -Product Lot Number [id number] -Percent Used 100 -Bleeding Controlled with Pressure -Other saline [id number] -Offloading No -Treatment Response Procedure Tolerated Well -Debridement - Subq, 1st 20sq cm No -Apply Skin Sub - 1st 25 sq cm - Legs 1 -Apply Skin Sub - each addt'l 25 sq 1 cm - Legs -Epifix (per sq cm) 4 [See Physician Procedure note for Specifics] Pain Scale: 0-10 Numeric [Pain] -Is Patient Pain Free? Yes - Nurse 3 - General Ulcer D/C NN Start: 03/05/20 08:56 Freq: Status: Active Protocol: Activity Type Activity Date Activity User E-Sign Co-Sign Detail Recorded Client Recorded Date Recorded By Document 03/11/20 11:10 SOLOMON [id number] 03/11/20 11:11 DL 03/11/20 11:10 Wound Care Nurse 3 [Wound Dressing] #4 R Post calf -Ulcer Cleansing Rinsed/ Irrigated with Saline -Foul Odor after Cleansing No -Primary Dressing Applied Aquacel AG 2x2 -Primary Dressing Covered/Secured Dry Gauze & with Roll Gauze -Aquacel AG 2x2 1 3-right knee graft site -Ulcer Cleansing Rinsed/ Irrigated with Saline -Foul Odor after Cleansing No -Other Dressing Epifix -Primary Dressing Covered/Secured Dry Gauze & with Roll Gauze -Other Covering floyd [Post Procedure Tolerated] -Treatment Response Procedure Tolerated Well Pain Scale: 0-10 Numeric [Pain] -Is Patient Pain Free? Yes - Visit Discharge [Visit Discharge Information] -Discharge Condition Stable -Ambulatory Status Ambulatory -Transportation Private Auto Musculoskeletal: Tenderness Neurological: Cranial nerves II-XII grossly intact Psych/Mental Status: Normal Affect, Appropriate Debridement Note Post-Debridement Measurements/Treatment - Nurse 2 - General Ulcer CM Notes Start: 03/05/20 08:56 Freq: Status: Active Protocol: Activity Type Activity Date Activity User E-Sign Co-Sign Detail Recorded Client Recorded Date Recorded By Document 03/11/20 10:43 ALETA [id number] 03/11/20 11:01 ALETA 12/07/20 10:43 Wound Center Nurse 2 #4 R Post calf -Time 10:45 -Correct Patient Yes -Correct Side, Site, Position Yes -Correct Procedure Yes -Procedure Performed Yes -Type of Procedure Debridement -Clinical Debridement Subcutaneous -Tissue Removed Subcutaneous -Post Debridement (cm) - Length 1.8 -Post Debridement (cm) - Width 0.7 -Post Debridement (cm) - Depth 0.4 -Total Square (Post) (cm) 1.26 -Area of Debridement (cm) - Length 1.8 -Area of Debridement (cm) - Width 0.7 -Total Square (Area) (cm) 1.26 -Tunneling No -Undermining/Tunneling No -Circular Undermining No -Wound/Ulcer Outcome Not Healed -Ulcer Cleansing Rinsed/ Irrigated with Saline -Foul Odor after Cleansing No -Bioengineered Tissue No -Bleeding Controlled with Pressure -Offloading No -Treatment Response Procedure Tolerated Well -Debridement - Subq, 1st 20sq cm Yes 3-right knee graft site -Time 10:45 -Correct Patient Yes -Correct Side, Site, Position Yes -Correct Procedure Yes -Procedure Performed Yes -Type of Procedure Debridement -Clinical Debridement Subcutaneous -Tissue Removed Subcutaneous -Post Debridement (cm) - Length 8.5 -Post Debridement (cm) - Width 3.6 -Post Debridement (cm) - Depth 0.2 -Total Square (Post) (cm) 30.60 -Area of Debridement (cm) - Length 8.5 -Area of Debridement (cm) - Width 3.6 -Total Square (Area) (cm) 30.60 -Tunneling No -Undermining/Tunneling No -Circular Undermining No -Wound/Ulcer Outcome Not Healed -Ulcer Cleansing Rinsed/ Irrigated with Saline -Foul Odor after Cleansing No -Bioengineered Tissue Yes -Type of Bioengineered Tissue Epifix -Expiration Date 10/03/24 -Product Lot Number [id number] -Percent Used 100 -Bleeding Controlled with Pressure -Other saline [id number] -Offloading No -Treatment Response Procedure Tolerated Well -Debridement - Subq, 1st 20sq cm No -Apply Skin Sub - 1st 25 sq cm - Legs 1 -Apply Skin Sub - each addt'l 25 sq cm 1 - Legs -Epifix (per sq cm) 4 Pain Scale: 0-10 Numeric Is Patient Pain Free? Yes WC - Nurse 3 - General Ulcer D/C NN Start: 03/05/20 08:56 Freq: Status: Active Protocol: Activity Type Activity Date Activity User E-Sign Co-Sign Detail Recorded Client Recorded Date Recorded By Document 03/11/20 11:10 DL [id number] 03/11/20 11:11 DL 03/11/20 11:10 Wound Care Nurse 3 #4 R Post calf -Ulcer Cleansing Rinsed/ Irrigated with Saline -Foul Odor after Cleansing No -Primary Dressing Applied Aquacel AG 2x2 -Primary Dressing Covered/Secured with Dry Gauze & Roll Gauze -Aquacel AG 2x2 1 3-right knee graft site -Ulcer Cleansing Rinsed/ Irrigated with Saline -Foul Odor after Cleansing No -Other Dressing Epifix -Primary Dressing Covered/Secured with Dry Gauze & Roll Gauze -Other Covering floyd Treatment Response Procedure Tolerated Well Pain Scale: 0-10 Numeric Is Patient Pain Free? Yes WC - Visit Discharge Discharge Condition Stable Ambulatory Status Ambulatory Transportation Private Auto Wound debrided: knee ulcer Laterality: Right Type of Debridement: Excisional debridement Anesthesia Used: 5% Lidocaine Gel Depth: Down to and including healthy tissue, in the subcutaneous layer Percentage of wound debrided: 100 Instrument Used: 3mm curette Tissue Removed: subcutaneous tissue and slough Severity: Limited To Skin Breakdown Amount of bleeding with debridement: Mild Bleeding Controlled with: Pressure Patient tolerated procedure well - Additional Wound Wound debrided: posterior leg ulcer Laterality: Right Type of Debridement: Excisional debridement Anesthesia Used: 5% Lidocaine Gel Depth: Down to and including healthy tissue, in the subcutaneous layer Percentage of wound debrided: 100 Instrument Used: 3mm curette Tissue Removed: Subcutaneous tissue and slough Severity: Fat Layer Exposed Amount of bleeding with debridement: Mild Bleeding Controlled with: Pressure, Compression and gauze Patient tolerated procedure: Patient tolerated procedure well Assessment/Plan Assessment: 1. Nonhealing ulcer right inferior knee by tibial tubercle. 2. History of revision replacement right knee. 3. History of right TKA infection. 4. Former smoker. 5. Sural nerve injury right posterior leg. 6. s/p irr igation debridement with polyethylene exchange right total knee and excision sinus tract right knee and reconstruction right inferior knee wound with right medial gastrocnemius muscular rotation flap and STSG reconstruction from right lateral abdominal wall (45 cm2) and 13 cm right superior knee wound complex secondary wound closure and epineural repair sural nerve injury right posterior leg. 7. Nonhealing ulcer right posterior leg. 8. Mild skin graft compromise right inferior knee. Plan: Muscle flap is healing satisfactory. Skin graft shows good adherence and vascular ingrowth. About 80% take. Mild scattered areas of skin graft compromise noted. Is showing benefit from HBO therapy to improve the salvage of the skin graft. She has completed her first round of HBO treatments and has had a renewal of 20 additional treatments. She is showing improvement in her ulcers. Wound care: Epifix #3 applied to the right knee ucler, covered with adaptic wound veil. Secured with steri strips. 100% of product was used. Right posterior ulcer will have daily silver dressing changes. Continue FLOYD wrap for compression. She doesn't wear the knee brace anymore. Continue Doxycycline and Voriconazole. Prealbumin from 11/30/19 was 24.7. Encourage nutritional supplementation with protein to help the healing process. Followup 1 week. She exhibits good range of motion with her right knee as she can bend it almost 75-80 degrees. [id number]: [id number] [place] subq tissue 20 sq cm/< - Right posterior leg ulcer 150xxx-152xx: [id number] Skin sub graft trnk/arm/leg - Right knee
[2020-03-12 08:01] LABS: Bedside Glucose 129 mg/dL (70-110)
[2020-03-12 08:01] LABS: Bedside Glucose 134 mg/dL (70-110)
[2020-03-12 08:29] VITALS: BP 136/74; BP 157/76; PULSE 105; PULSE 84; RESP 16; TEMP 36.1; TEMP 36.2
[2020-03-12 10:01] LABS: Bedside Glucose 159 mg/dL (70-110)
--- NOTE | 2020-03-12 13:59 | PCM.HBO.PN ---
History of Present Illness Date of Service: 03/12/20 Presenting Chief Complaint: Nonhealing ulcer right inferior knee s/p polyethylene exchange and gastrocnemius muscle flap reconstruction on 11/29/19 with compromise to the overlying skin graft and nonhealing ulcer right posterior leg. RAJESH CARRENO is a 59 year old currently undergoing hyperbaric oxygen therapy for a failing/compromised right medial gastrocnemius muscular rotation flap. Progress: This represents the 28th hyperbaric oxygen therapy session of an anticipated 50 such sessions. Tolerance of hyperbaric oxygen therapy: Hyperbaric oxygen therapy was administered as per the facility's protocol. Hyperbaric oxygen therapy was administered for 90 minutes at 2 tahir with no air breaks. Patient tolerated hyperbaric oxygen therapy well, without complaints or complications. Upon emergence from the hyperbaric chamber, the patient's vital signs remained stable. She indicated that she felt slight discomfort in her left ear. Otoscopic examination was performed, revealing slight erythema in a focal area of the canal, though the tympanic membrane appeared unremarkable, with the myringotomy tube remaining in place. The patient was discharged in good condition. 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, sequela (Chronic) Nonhealing ulcer of right lower extremity with fat layer exposed (Chronic) Nonhealing ulcer right inferior knee by tibial tubercle History of DVT (deep vein thrombosis) (Chronic) Septic arthritis of knee, right (Chronic) Hx of total knee replacement (Chronic) right Restless leg (Chronic) RENNY (obstructive sleep apnea) (Chronic) Hypothyroidism (Chronic) Diverticulosis of colon without diverticulitis (Chronic) Depression (Chronic) Postphlebitic syndrome with inflammation (Chronic) Lumbar disc disease (Chronic) History of Graves' disease (Chronic) Diabetes mellitus (Chronic) Renal insufficiency (Chronic) Presence of IVC filter (Chronic) Obesity (Chronic) Edema leg (Chronic) Leg swelling (Chronic) DVT of lower extremity (deep venous thrombosis) (Chronic) Allergies/Adverse Reactions: Allergies hydrocodone bitartrate [From Lortab] Allergy (Intermediate, Verified 09/06/19 07:31) Other lips swell, ataxia etodolac Allergy (Verified 09/06/19 07:31) Unknown misoprostol Allergy (Verified 09/06/19 07:31) Unknown celecoxib Adverse Reaction (Intermediate, Verified 09/06/19 07:31) Other heart palpitations diclofenac [Diclofenac] Adverse Reaction (Mild, Verified 09/06/19 07:31) Abd cramps/diarrhea ketorolac tromethamine [From Toradol] Adverse Reaction (Mild, Verified 09/06/19 07:31) Other balance issues metoclopramide HCl [From Reglan] Adverse Reaction (Mild, Verified 09/06/19 07:31) Other worsens restless leg atorvastatin [From Lipitor] Adverse Reaction (Verified 09/06/19 07:31) Other FACE SPASMS clindamycin Adverse Reaction (Verified 09/06/19 07:31) Mucosal lesions Home Medications: Ambulatory Orders Medication Instructions Recorded Levothyroxine [Synthroid] 175 mcg PO DAILY 09/01/13 Omeprazole [Prilosec] 20 mg PO DAILY 12/13/16 Cholecalciferol (Vitamin D3) 5,000 unit PO DAILY@1200 01/25/17 [Vitamin D3] [place]-3 Fatty Acids/Fish Oil [Fish 2,000 mg PO LUNCH 03/21/18 Oil 1,000 mg Capsule] Gabapentin 800 mg PO BID 08/01/18 Gabapentin [Neurontin] 1,200 mg PO QHS 08/01/18 Lisinopril [Zestril] 10 mg PO LUNCH 08/01/18 Pramipexole Di-HCl [Pramipexole 1 mg PO LUNCH 08/01/18 Dihydrochloride] Pramipexole Di-HCl [Pramipexole 1.5 tab PO QHS 08/01/18 Dihydrochloride] Venlafaxine HCl [Effexor Xr] 1 tab PO DAILY 08/01/18 Venlafaxine HCl [Venlafaxine HCl 1 tab PO DAILY 08/01/18 ER] Aspirin [Aspir-Low] 81 mg PO LUNCH 05/02/19 Famotidine [Pepcid] 40 mg PO QHS 05/02/19 Ferrous Sulfate 325 mg PO DAILY 08/30/19 Ascorbic Acid [Vitamin C] 500 mg PO LUNCH 11/28/19 Doxycycline 100 mg PO BID 11/28/19 Montelukast [Singulair] 10 mg PO QHS 11/28/19 Pramipexole Di-HCl [Mirapex] 0.5 mg PO DAILY 11/28/19 Voriconazole 200 mg PO BID 11/28/19 Acetaminophen [Tylenol] 1,000 mg PO Q8 tab 12/04/19 Senna/Docusate Sodium [Senokot-S] 2 tab PO BID tab 12/04/19 Maternal Family History: Heart Disease, Hypertension Paternal Family History: Heart Disease, Hypertension Sibling Family History: Cancer, Diabetes, Hypertension, - Smoking Status: Former smoker Physical Exam Vital Signs Temp Pulse Resp BP 97.2 F L 84 16 136/74 H 03/12/20 08:29 03/12/20 08:29 03/12/20 08:29 03/12/20 08:29 General: Alert, Oriented x3, Cooperative, No apparent distress, Well developed, Well nourished HEENT: Atraumatic, PERRLA, EOMI, Normocephalic, - - Slight, focal erythema was noted in the left ear canal. The left tympanic membrane was unremarkable, with a myringotomy tube remaining in place. Lungs: Normal air movement Psych/Mental Status: Normal Affect, Appropriate, Alert and oriented to time, place, person, mood and affect Assessment/Plan The patient appears to be tolerating hyperbaric oxygen therapy well, which will be continued as per the patient's medical plan. Treatment Course Number Number of HBO Treatments 50 Ordered Treatment Course Number 1 Treatment # 28 Chamber # 1 Chamber Type Monoplace Diabetes - Detail Diabetes Diabetes Type II Left Extremity Other - Detail Compromised/Failed Flap/Graft Yes: right knee (specify site in comment) Treatment Plan PATRICIA (Atmospheric Absolute) 2 Number of Minutes 90 Number of Air Breaks 0
[2020-03-14 07:46] LABS: Bedside Glucose 197 mg/dL (70-110)
[2020-03-14 08:34] VITALS: BP 150/85; BP 155/91; PULSE 84; PULSE 87; RESP 17; RESP 18; TEMP 36.1; TEMP 36.2
--- NOTE | 2020-03-14 08:48 | PCM.HBO.PN ---
History of Present Illness Date of Service: 03/14/20 Presenting Chief Complaint: Nonhealing ulcer right inferior knee s/p polyethylene exchange and gastrocnemius muscle flap reconstruction on 11/29/19 with compromise to the overlying skin graft and nonhealing ulcer right posterior leg. RAJESH CARRENO is a 59 year old currently undergoing hyperbaric oxygen therapy for a failing/compromised right medial gastrocnemius muscular rotation flap. Progress: This represents the 29th hyperbaric oxygen therapy session of an anticipated 50 such sessions. Tolerance of hyperbaric oxygen therapy: Hyperbaric oxygen therapy was administered as per the facility's protocol. Hyperbaric oxygen therapy was administered for 90 minutes at 2 tahir with no air breaks. Patient tolerated hyperbaric oxygen therapy well, without complaints or complications. Upon emergence from the hyperbaric chamber, the patient's vital signs remained stable. The patient was discharged in good condition. 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, sequela (Chronic) Nonhealing ulcer of right lower extremity with fat layer exposed (Chronic) Nonhealing ulcer right inferior knee by tibial tubercle History of DVT (deep vein thrombosis) (Chronic) Septic arthritis of knee, right (Chronic) Hx of total knee replacement (Chronic) right Restless leg (Chronic) RENNY (obstructive sleep apnea) (Chronic) Hypothyroidism (Chronic) Diverticulosis of colon without diverticulitis (Chronic) Depression (Chronic) Postphlebitic syndrome with inflammation (Chronic) Lumbar disc disease (Chronic) History of Graves' disease (Chronic) Diabetes mellitus (Chronic) Renal insufficiency (Chronic) Presence of IVC filter (Chronic) Obesity (Chronic) Edema leg (Chronic) Leg swelling (Chronic) DVT of lower extremity (deep venous thrombosis) (Chronic) Allergies/Adverse Reactions: Allergies hydrocodone bitartrate [From Lortab] Allergy (Intermediate, Verified 09/06/19 07:31) Other lips swell, ataxia etodolac Allergy (Verified 09/06/19 07:31) Unknown misoprostol Allergy (Verified 09/06/19 07:31) Unknown celecoxib Adverse Reaction (Intermediate, Verified 09/06/19 07:31) Other heart palpitations diclofenac [Diclofenac] Adverse Reaction (Mild, Verified 09/06/19 07:31) Abd cramps/diarrhea ketorolac tromethamine [From Toradol] Adverse Reaction (Mild, Verified 09/06/19 07:31) Other balance issues metoclopramide HCl [From Reglan] Adverse Reaction (Mild, Verified 09/06/19 07:31) Other worsens restless leg atorvastatin [From Lipitor] Adverse Reaction (Verified 09/06/19 07:31) Other FACE SPASMS clindamycin Adverse Reaction (Verified 09/06/19 07:31) Mucosal lesions Home Medications: Ambulatory Orders Medication Instructions Recorded Levothyroxine [Synthroid] 175 mcg PO DAILY 09/01/13 Omeprazole [Prilosec] 20 mg PO DAILY 12/13/16 Cholecalciferol (Vitamin D3) 5,000 unit PO DAILY@1200 01/25/17 [Vitamin D3] [place]-3 Fatty Acids/Fish Oil [Fish 2,000 mg PO LUNCH 03/21/18 Oil 1,000 mg Capsule] Gabapentin 800 mg PO BID 08/01/18 Gabapentin [Neurontin] 1,200 mg PO QHS 08/01/18 Lisinopril [Zestril] 10 mg PO LUNCH 08/01/18 Pramipexole Di-HCl [Pramipexole 1 mg PO LUNCH 08/01/18 Dihydrochloride] Pramipexole Di-HCl [Pramipexole 1.5 tab PO QHS 08/01/18 Dihydrochloride] Venlafaxine HCl [Effexor Xr] 1 tab PO DAILY 08/01/18 Venlafaxine HCl [Venlafaxine HCl 1 tab PO DAILY 08/01/18 ER] Aspirin [Aspir-Low] 81 mg PO LUNCH 05/02/19 Famotidine [Pepcid] 40 mg PO QHS 05/02/19 Ferrous Sulfate 325 mg PO DAILY 08/30/19 Ascorbic Acid [Vitamin C] 500 mg PO LUNCH 11/28/19 Doxycycline 100 mg PO BID 11/28/19 Montelukast [Singulair] 10 mg PO QHS 11/28/19 Pramipexole Di-HCl [Mirapex] 0.5 mg PO DAILY 11/28/19 Voriconazole 200 mg PO BID 11/28/19 Acetaminophen [Tylenol] 1,000 mg PO Q8 tab 12/04/19 Senna/Docusate Sodium [Senokot-S] 2 tab PO BID tab 12/04/19 Maternal Family History: Heart Disease, Hypertension Paternal Family History: Heart Disease, Hypertension Sibling Family History: Cancer, Diabetes, Hypertension, - Smoking Status: Former smoker Physical Exam Vital Signs Temp Pulse Resp BP 97.1 F L 87 18 155/91 H 03/14/20 08:34 03/14/20 08:34 03/14/20 08:34 03/14/20 08:34 General: Alert, Oriented x3, Cooperative, No apparent distress HEENT: Atraumatic, TM's Clear Lungs: Clear to auscultation, Normal air movement Cardiovascular: Regular rate, Regular Rhythm Psych/Mental Status: Normal Affect, Appropriate, Alert and oriented to time, place, person, mood and affect Assessment/Plan Active Problems Chronic ulcer of right leg (Chronic) Diabetes mellitus with skin ulcer (Chronic) Former smoker (Chronic) History of right knee joint replacement (Chronic) Edema leg (Chronic) Treatment Course Number Number of HBO Treatments 50 Ordered Treatment Course Number 1 Treatment # 29 Chamber # 1 Chamber Type Monoplace Diabetes - Detail Diabetes Diabetes Type II Left Extremity Other - Detail Compromised/Failed Flap/Graft Yes: right knee (specify site in comment) Treatment Plan PATRICIA (Atmospheric Absolute) 2 Number of Minutes 90 Number of Air Breaks 0
[2020-03-14 10:00] LABS: Bedside Glucose 171 mg/dL (70-110)
[2020-03-18 07:55] LABS: Bedside Glucose 187 mg/dL (70-110)
[2020-03-18 08:22] VITALS: BP 120/50; BP 154/89; PULSE 91; RESP 16; TEMP 35.8; TEMP 35.9
--- NOTE | 2020-03-18 09:19 | HBO.PN.PCM_ITS ---
History of Present Illness Date of Service: 03/18/20 Presenting Chief Complaint: Nonhealing ulcer right inferior knee s/p polyethylene exchange and gastrocnemius muscle flap reconstruction on 11/29/19 with compromise to the overlying skin graft and nonhealing ulcer right posterior leg. RAJESH CARRENO is a 59 year old currently undergoing hyperbaric oxygen therapy for a failing/compromised right medial gastrocnemius muscular rotation flap. Progress: This represents the 30th hyperbaric oxygen therapy session of an anticipated 50 such sessions. Tolerance of hyperbaric oxygen therapy: Hyperbaric oxygen therapy was administered as per the facility's protocol. Hyperbaric oxygen therapy was administered for 90 minutes at 2 tahir with no air breaks. Patient tolerated hyperbaric oxygen therapy well, without complaints or complications. Upon emergence from the hyperbaric chamber, the patient's vital signs remained stable. The patient was discharged in good condition. 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, sequela (Chronic) Nonhealing ulcer of right lower extremity with fat layer exposed (Chronic) Nonhealing ulcer right inferior knee by tibial tubercle History of DVT (deep vein thrombosis) (Chronic) Septic arthritis of knee, right (Chronic) Hx of total knee replacement (Chronic) right Restless leg (Chronic) RENNY (obstructive sleep apnea) (Chronic) Hypothyroidism (Chronic) Diverticulosis of colon without diverticulitis (Chronic) Depression (Chronic) Postphlebitic syndrome with inflammation (Chronic) Lumbar disc disease (Chronic) History of Graves' disease (Chronic) Diabetes mellitus (Chronic) Renal insufficiency (Chronic) Presence of IVC filter (Chronic) Obesity (Chronic) Edema leg (Chronic) Leg swelling (Chronic) DVT of lower extremity (deep venous thrombosis) (Chronic) Allergies/Adverse Reactions: Allergies hydrocodone bitartrate [From Lortab] Allergy (Intermediate, Verified 09/06/19 07:31) Other lips swell, ataxia etodolac Allergy (Verified 09/06/19 07:31) Unknown misoprostol Allergy (Verified 09/06/19 07:31) Unknown celecoxib Adverse Reaction (Intermediate, Verified 09/06/19 07:31) Other heart palpitations diclofenac [Diclofenac] Adverse Reaction (Mild, Verified 09/06/19 07:31) Abd cramps/diarrhea ketorolac tromethamine [From Toradol] Adverse Reaction (Mild, Verified 09/06/19 07:31) Other balance issues metoclopramide HCl [From Reglan] Adverse Reaction (Mild, Verified 09/06/19 07:31) Other worsens restless leg atorvastatin [From Lipitor] Adverse Reaction (Verified 09/06/19 07:31) Other FACE SPASMS clindamycin Adverse Reaction (Verified 09/06/19 07:31) Mucosal lesions Home Medications: Ambulatory Orders Medication Instructions Recorded Levothyroxine [Synthroid] 175 mcg PO DAILY 09/01/13 Omeprazole [Prilosec] 20 mg PO DAILY 12/13/16 Cholecalciferol (Vitamin D3) 5,000 unit PO DAILY@1200 01/25/17 [Vitamin D3] [place]-3 Fatty Acids/Fish Oil [Fish 2,000 mg PO LUNCH 03/21/18 Oil 1,000 mg Capsule] Gabapentin 800 mg PO BID 08/01/18 Gabapentin [Neurontin] 1,200 mg PO QHS 08/01/18 Lisinopril [Zestril] 10 mg PO LUNCH 08/01/18 Pramipexole Di-HCl [Pramipexole 1 mg PO LUNCH 08/01/18 Dihydrochloride] Pramipexole Di-HCl [Pramipexole 1.5 tab PO QHS 08/01/18 Dihydrochloride] Venlafaxine HCl [Effexor Xr] 1 tab PO DAILY 08/01/18 Venlafaxine HCl [Venlafaxine HCl 1 tab PO DAILY 08/01/18 ER] Aspirin [Aspir-Low] 81 mg PO LUNCH 05/02/19 Famotidine [Pepcid] 40 mg PO QHS 05/02/19 Ferrous Sulfate 325 mg PO DAILY 08/30/19 Ascorbic Acid [Vitamin C] 500 mg PO LUNCH 11/28/19 Doxycycline 100 mg PO BID 11/28/19 Montelukast [Singulair] 10 mg PO QHS 11/28/19 Pramipexole Di-HCl [Mirapex] 0.5 mg PO DAILY 11/28/19 Voriconazole 200 mg PO BID 11/28/19 Acetaminophen [Tylenol] 1,000 mg PO Q8 tab 12/04/19 Senna/Docusate Sodium [Senokot-S] 2 tab PO BID tab 12/04/19 Maternal Family History: Heart Disease, Hypertension Paternal Family History: Heart Disease, Hypertension Sibling Family History: Cancer, Diabetes, Hypertension, - Smoking Status: Former smoker Physical Exam Vital Signs Temp Pulse Resp BP 96.5 F L 91 16 154/89 H 03/18/20 08:22 03/18/20 08:22 03/18/20 08:22 03/18/20 08:22 General: Alert, Oriented x3, Cooperative, No apparent distress HEENT: Atraumatic, TM's Clear Lungs: Clear to auscultation, Normal air movement Cardiovascular: Regular rate, Regular Rhythm Psych/Mental Status: Normal Affect, Appropriate, Alert and oriented to time, place, person, mood and affect Assessment/Plan Active Problems Chronic ulcer of right leg (Chronic) Diabetes mellitus with skin ulcer (Chronic) Former smoker (Chronic) History of right knee joint replacement (Chronic) Edema leg (Chronic) Treatment Course Number Number of HBO Treatments 50 Ordered Treatment Course Number 1 Treatment # 30 Chamber # 1 Chamber Type Monoplace Diabetes - Detail Diabetes Diabetes Type II Left Extremity Other - Detail Compromised/Failed Flap/Graft Yes: right knee (specify site in comment) Treatment Plan PATRICIA (Atmospheric Absolute) 2 Number of Minutes 90 Number of Air Breaks 0
[2020-03-18 10:05] LABS: Bedside Glucose 126 mg/dL (70-110)
[2020-03-18 10:09] VITALS: BP 120/50; PULSE 83; RESP 18; TEMP 36.4; BMI 45.3
--- NOTE | 2020-03-18 12:56 | PCM.WC.PN ---
Type of Wound Date of Service: 03/18/20 Chief Complaint: Nonhealing ulcer right inferior knee s/p polyethylene exchange and gastrocnemius muscle flap reconstruction on 11/29/19 with compromise to the overlying skin graft and nonhealing ulcer right posterior leg. History of Wound: Surgery 11/29/19 - Irrigation debridement with polyethylene exchange right total knee and excision sinus tract right knee by Dr Barton. 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 Lazaro. Wound care - Collagen Hydrogel. Operative culture - negative. Currently on Doxycycline and Voriconazole. Prealbumin on 11/30/19 was 24.7. Encourage nutritional supplementation with protein to help the healing process. Today she denies fever. Her appetite is good. She is ambulating ok. She doesn't need the knee brace and occasionally will use the walker. She has burning nerve pain and tingling in the area of the sural nerve distribution. She is noticing improvement with the Neurontin. She has started HBO treatments for compromise to the skin graft and is tolerating the treatments. We have started advanced skin substitute grafts to her right knee. Thus far we have placed 3 applications of Epifix placental connective tissue graft. She had recent labs on 03/15/20. Her Alkaline Phosphatase was 166. It was 172 in November,. She will followup with her PCP. Progress of Wound: Patient tolerating HBOT well for her compromised skin graft. Muscle flap is healed. Skin graft/ulcer on right knee is improved. Nonhealing ulcer right posterior leg is almost healed. - Physical Exam Vital Signs Temp Pulse Resp BP 97.5 F L 83 18 120/50 L 03/18/20 10:09 03/18/20 10:09 03/18/20 10:09 03/18/20 10:09 Wound Measurements and Assessment WC - Nurse 1 - General Ulcer Measurement Start: 03/05/20 08:56 Freq: Status: Active Protocol: Activity Type Activity Date Activity User E-Sign Co-Sign Detail Recorded Client Recorded Date Recorded By Document 03/18/20 10:09 DL [id number] 03/18/20 10:17 DL 03/18/20 10:09 Wound Center Nurse 1 [Ulcer Assessment] #4 R Post calf -Current Size (cm) - Length 0.6 -Current Size (cm) - Width 0.2 -Current Size (cm) - Depth 0.1 -Total Square Cm 0.12 -Photo Taken No -Exudate Amt None Present -Wound Margin Distinct, Outline Attached -Granulation Amt Small (1-33%) -Granulation Quality Corder -Necrosis Amt Small (1-33%) -Necrotic Tissue Type Adherent Slough -Structure Exposed N/A -Texture (Aileen-wound Skin Appearance) Scarring -Moisture (Aileen-wound Skin Appearance No Abnormality ) -Color (Aileen-wound Skin Appearance) No Abnormality -Temperature (Aileen-wound Skin No Abnormality Appearance) (Pt Warm) -Tenderness on Palpation (Aileen-wound No Skin Appearance) -Ulcer Cleansing Wound Cleanser -Foul Odor after Cleansing No -Anesthetic Used 4% Lidocaine Solution 3-right knee graft site -Current Size (cm) - Length 6.8 -Current Size (cm) - Width 0.2 -Current Size (cm) - Depth 0.1 -Total Square Cm 1.36 -Photo Taken No -Exudate Amt Small -Exudate Type Serosanguineous -Wound Margin Distinct, Outline Attached -Granulation Amt Small (1-33%) -Granulation Quality Corder -Necrosis Amt Large (67-100%) -Necrotic Tissue Type Adherent Slough -Structure Exposed N/A -Texture (Aileen-wound Skin Appearance) Scarring -Moisture (Aileen-wound Skin Appearance Dry/Scaly ) -Color (Aileen-wound Skin Appearance) No Abnormality -Temperature (Aileen-wound Skin No Abnormality Appearance) (Pt Warm) -Tenderness on Palpation (Aileen-wound No Skin Appearance) -Ulcer Cleansing Wound Cleanser -Foul Odor after Cleansing No -Anesthetic Used 4% Lidocaine Solution WC - Nurse 2 - General Ulcer CM Notes Start: 03/05/20 08:56 Freq: Status: Active Protocol: Activity Type Activity Date Activity User E-Sign Co-Sign Detail Recorded Client Recorded Date Recorded By Document 03/18/20 10:39 ALETA [id number] 03/18/20 10:47 ALETA 03/18/20 10:39 Wound Center Nurse 2 [Procedure/Treatment] #4 R Post calf -Time 10:40 -Correct Patient Yes -Correct Side, Site, Position Yes -Correct Procedure Yes -Procedure Performed Yes -Type of Procedure Debridement -Clinical Debridement Subcutaneous -Tissue Removed Subcutaneous -Post Debridement (cm) - Length 0.7 -Post Debridement (cm) - Width 0.4 -Post Debridement (cm) - Depth 0.2 -Total Square (Post) (cm) 0.28 -Area of Debridement (cm) - Length 0.7 -Area of Debridement (cm) - Width 0.4 -Total Square (Area) (cm) 0.28 -Tunneling No -Undermining/Tunneling No -Circular Undermining No -Wound/Ulcer Outcome Not Healed -Ulcer Cleansing Rinsed/ Irrigated with Saline -Foul Odor after Cleansing No -Bioengineered Tissue No -Bleeding Controlled with Pressure -Offloading No -Treatment Response Procedure Tolerated Well -Debridement - Subq, 1st 20sq cm Yes 3-right knee graft site -Time 10:40 -Correct Patient Yes -Correct Side, Site, Position Yes -Correct Procedure Yes -Procedure Performed Yes -Type of Procedure Debridement -Clinical Debridement Subcutaneous -Tissue Removed Subcutaneous -Post Debridement (cm) - Length 9 -Post Debridement (cm) - Width 2.8 -Post Debridement (cm) - Depth 0.1 -Total Square (Post) (cm) 25.2 -Area of Debridement (cm) - Length 9 -Area of Debridement (cm) - Width 2.8 -Total Square (Area) (cm) 25.2 -Tunneling No -Undermining/Tunneling No -Circular Undermining No -Wound/Ulcer Outcome Not Healed -Ulcer Cleansing Rinsed/ Irrigated with Saline -Foul Odor after Cleansing No -Bioengineered Tissue Yes -Type of Bioengineered Tissue Epifix -Expiration Date 10/03/24 -Product Lot Number [id number] -Percent Used 100 -Bleeding Controlled with Pressure -Other SALINE [id number] -Offloading No -Treatment Response Procedure Tolerated Well -Debridement - Subq, 1st 20sq cm No -Apply Skin Sub - 1st 25 sq cm - Legs 1 -Epifix (per sq cm) 4 [See Physician Procedure note for Specifics] Pain Scale: 0-10 Numeric [Pain] -Is Patient Pain Free? Yes WC - Nurse 3 - General Ulcer D/C NN Start: 03/05/20 08:56 Freq: Status: Active Protocol: Activity Type Activity Date Activity User E-Sign Co-Sign Detail Recorded Client Recorded Date Recorded By Document 03/18/20 10:48 ALETA [id number] 03/18/20 10:49 03/18/20 10:48 Wound Care Nurse 3 [Wound Dressing] #4 R Post calf -Ulcer Cleansing Rinsed/ Irrigated with Saline -Foul Odor after Cleansing No -Primary Dressing Covered/Secured Dry Gauze & with Roll Gauze, Secured with Tape 3-right knee graft site -Ulcer Cleansing Rinsed/ Irrigated with Saline -Foul Odor after Cleansing No -Primary Dressing Covered/Secured Dry Gauze & with Roll Gauze, Secured with Tape [Compression Applied] Right -Compression Wrap Roger Wrap Pain Scale: 0-10 Numeric [Pain] -Is Patient Pain Free? Yes - Visit Discharge [Visit Discharge Information] -Discharge Condition Stable -Ambulatory Status Ambulatory -Transportation Private Auto -Medication Reconcilliation completed Yes & provided to patient/care provider -Clinical Summary of Care Provided Yes Debridement Note Post-Debridement Measurements/Treatment - Nurse 2 - General Ulcer CM Notes Start: 03/05/20 08:56 Freq: Status: Active Protocol: Activity Type Activity Date Activity User E-Sign Co-Sign Detail Recorded Client Recorded Date Recorded By Document 03/11/20 10:43 [id number] 03/11/20 11:01 Document 03/18/20 10:39 [id number] 03/18/20 10:47 03/11/20 03/18/20 10:43 10:39 Wound Center Nurse 2 #4 R Post calf -Time 10:45 10:40 -Correct Patient Yes Yes -Correct Side, Site, Position Yes Yes -Correct Procedure Yes Yes -Procedure Performed Yes Yes -Type of Procedure Debridement Debridement -Clinical Debridement Subcutaneous Subcutaneous -Tissue Removed Subcutaneous Subcutaneous -Post Debridement (cm) - Length 1.8 0.7 -Post Debridement (cm) - Width 0.7 0.4 -Post Debridement (cm) - Depth 0.4 0.2 -Total Square (Post) (cm) 1.26 0.28 -Area of Debridement (cm) - Length 1.8 0.7 -Area of Debridement (cm) - Width 0.7 0.4 -Total Square (Area) (cm) 1.26 0.28 -Tunneling No No -Undermining/Tunneling No No -Circular Undermining No No -Wound/Ulcer Outcome Not Healed Not Healed -Ulcer Cleansing Rinsed/ Rinsed/ Irrigated with Irrigated with Saline Saline -Foul Odor after Cleansing No No -Bioengineered Tissue No No -Bleeding Controlled with Pressure Pressure -Offloading No No -Treatment Response Procedure Procedure Tolerated Well Tolerated Well -Debridement - Subq, 1st 20sq cm Yes Yes 3-right knee graft site -Time 10:45 10:40 -Correct Patient Yes Yes -Correct Side, Site, Position Yes Yes -Correct Procedure Yes Yes -Procedure Performed Yes Yes -Type of Procedure Debridement Debridement -Clinical Debridement Subcutaneous Subcutaneous -Tissue Removed Subcutaneous Subcutaneous -Post Debridement (cm) - Length 8.5 9 -Post Debridement (cm) - Width 3.6 2.8 -Post Debridement (cm) - Depth 0.2 0.1 -Total Square (Post) (cm) 30.60 25.2 -Area of Debridement (cm) - Length 8.5 9 -Area of Debridement (cm) - Width 3.6 2.8 -Total Square (Area) (cm) 30.60 25.2 -Tunneling No No -Undermining/Tunneling No No -Circular Undermining No No -Wound/Ulcer Outcome Not Healed Not Healed -Ulcer Cleansing Rinsed/ Rinsed/ Irrigated with Irrigated with Saline Saline -Foul Odor after Cleansing No No -Bioengineered Tissue Yes Yes -Type of Bioengineered Tissue Epifix Epifix #4 -Expiration Date 10/03/24 10/03/24 -Product Lot Number [id number] -Percent Used 100 100 -Bleeding Controlled with Pressure Pressure -Other saline [id number] SALINE [id number] -Offloading No No -Treatment Response Procedure Procedure Tolerated Well Tolerated Well -Debridement - Subq, 1st 20sq cm No No -Apply Skin Sub - 1st 25 sq cm - Legs 1 1 -Apply Skin Sub - each addt'l 25 sq cm 1 - Legs -Epifix (per sq cm) 4 4 Pain Scale: 0-10 Numeric Is Patient Pain Free? Yes Yes WC - Nurse 3 - General Ulcer D/C NN Start: 03/05/20 08:56 Freq: Status: Active Protocol: Activity Type Activity Date Activity User E-Sign Co-Sign Detail Recorded Client Recorded Date Recorded By Document 03/11/20 11:10 DL [id number] 03/11/20 11:11 DL Document 03/18/20 10:48 JF [id number] 03/18/20 10:49 JF 03/11/20 03/18/20 11:10 10:48 Wound Care Nurse 3 #4 R Post calf -Ulcer Cleansing Rinsed/ Rinsed/ Irrigated with Irrigated with Saline Saline -Foul Odor after Cleansing No No -Primary Dressing Applied Aquacel AG 2x2 -Primary Dressing Covered/Secured with Dry Gauze & Dry Gauze & Roll Gauze Roll Gauze, Secured with Tape -Aquacel AG 2x2 1 3-right knee graft site -Ulcer Cleansing Rinsed/ Rinsed/ Irrigated with Irrigated with Saline Saline -Foul Odor after Cleansing No No -Other Dressing Epifix -Primary Dressing Covered/Secured with Dry Gauze & Dry Gauze & Roll Gauze Roll Gauze, Secured with Tape -Other Covering roger Right -Compression Wrap Roger Wrap Treatment Response Procedure Tolerated Well Pain Scale: 0-10 Numeric Is Patient Pain Free? Yes Yes WC - Visit Discharge Discharge Condition Stable Stable Ambulatory Status Ambulatory Ambulatory Transportation Private Auto Private Auto Medication Reconcilliation completed & Yes provided to patient/care provider Clinical Summary of Care Provided Yes Wound debrided: #3 Right inferior knee muscle flap and skin graft. Laterality: Right Wound Grade/Stage: 2. Type of Debridement: Excisional debridement Anesthesia Used: 4% Lidocaine Solution Depth: Down to and including healthy tissue, in the subcutaneous layer Percentage of wound debrided: 100 Instrument Used: 3mm curette Tissue Removed: subcutaneous tissue. Severity: Fat Layer Exposed Amount of bleeding with debridement: Mild Bleeding Controlled with: Pressure Patient tolerated procedure well, - - Epifix #4 was applied today. Expiration - 10/03/24. Lot Number - [id number]. % used - 100%. Saline Lot Number - [id number]. - Additional Wound Wound debrided: #4 Right posterior leg. Laterality: Right Wound Grade/Stage: 2. Type of Debridement: Excisional debridement Anesthesia Used: 4% Lidocaine Solution Depth: Down to and including healthy tissue, in the subcutaneous layer Percentage of wound debrided: 100 Instrument Used: 3mm curette Tissue Removed: subcutaneous tissue. Severity: Fat Layer Exposed Amount of bleeding with debridement: Mild Bleeding Controlled with: Pressure Patient tolerated procedure: Patient tolerated procedure well Assessment/Plan Active Problems Chronic ulcer of right leg (Chronic) Diabetes mellitus with skin ulcer (Chronic) Former smoker (Chronic) History of right knee joint replacement (Chronic) Edema leg (Chronic) Assessment: 1. Nonhealing ulcer right inferior knee by tibial tubercle. 2. History of revision replacement right knee. 3. History of right TKA infection. 4. Former smoker. 5. Sural nerve injury right posterior leg. 6. 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 7. Nonhealing ulcer right posterior leg. 8. Mild skin graft compromise right inferior knee. Plan: Muscle flap is healing satisfactory. Skin graft shows good adherence and vascular ingrowth. About 90% take. Mild scattered areas of skin graft compromise noted. Can benefit from HBO therapy to improve the salvage of the skin graft. She has started the HBO treatments and has tolerated them thus far. We have started advanced skin substitute grafts to the right knee skin graft ulcer with Epifix placental connective tissue graft. Today was application #4 of Epifix. Continue Collagen Hydrogel right posterior leg ulcer. Continue ROGER wrap for compression. She doesn't wear the knee brace anymore. Continue Doxycycline and Voriconazole. Prealbumin from 11/30/19 was 24.7. Encourage nutritional supplementation with protein to help the healing process. She exhibits good range of motion with her right knee as she can bend it almost 75-80 degrees. She had recent labs on 03/15/20. Her Alkaline Phosphatase was 166. It was 172 in November,. She will followup with her PCP. Followup one week. [id number]: [id number] Skin sub graft trnk/arm/leg - ICD-10 - L97.912, Z96.651, T84.53xS, S84.21xA, T86.828, Z87.891 Multi Select Codes - Integumentary Integumentary CPT Codes: 54893 [place] subq tissue 20 sq cm/< - -59 Modifier ICD-10 - L97.912, Z96.651, T84.53xS, S84.21xA, T86.828, Z87.895
[2020-03-19 07:56] LABS: Bedside Glucose 147 mg/dL (70-110)
[2020-03-19 08:29] VITALS: BP 130/65; BP 134/73; PULSE 77; PULSE 84; RESP 16; TEMP 36.1; TEMP 36.2
[2020-03-19 10:00] LABS: Bedside Glucose 135 mg/dL (70-110)
--- NOTE | 2020-03-19 13:09 | PCM.HBO.PN ---
History of Present Illness Date of Service: 03/19/20 Presenting Chief Complaint: Nonhealing ulcer right inferior knee s/p polyethylene exchange and gastrocnemius muscle flap reconstruction on 11/29/19 with compromise to the overlying skin graft and nonhealing ulcer right posterior leg. RAJESH CARRENO is a 59 year old currently undergoing hyperbaric oxygen therapy for a failing/compromised right medial gastrocnemius muscular rotation flap. Progress: This represents the 31st hyperbaric oxygen therapy session of an anticipated 50 such sessions. Tolerance of hyperbaric oxygen therapy: Hyperbaric oxygen therapy was administered as per the facility's protocol. Hyperbaric oxygen therapy was administered for 90 minutes at 2 tahir with no air breaks. Patient tolerated hyperbaric oxygen therapy well, without complaints or complications. Upon emergence from the hyperbaric chamber, the patient's vital signs remained stable. The patient was discharged in good condition. 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, sequela (Chronic) Nonhealing ulcer of right lower extremity with fat layer exposed (Chronic) Nonhealing ulcer right inferior knee by tibial tubercle History of DVT (deep vein thrombosis) (Chronic) Septic arthritis of knee, right (Chronic) Hx of total knee replacement (Chronic) right Restless leg (Chronic) RENNY (obstructive sleep apnea) (Chronic) Hypothyroidism (Chronic) Diverticulosis of colon without diverticulitis (Chronic) Depression (Chronic) Postphlebitic syndrome with inflammation (Chronic) Lumbar disc disease (Chronic) History of Graves' disease (Chronic) Diabetes mellitus (Chronic) Renal insufficiency (Chronic) Presence of IVC filter (Chronic) Obesity (Chronic) Edema leg (Chronic) Leg swelling (Chronic) DVT of lower extremity (deep venous thrombosis) (Chronic) Allergies/Adverse Reactions: Allergies hydrocodone bitartrate [From Lortab] Allergy (Intermediate, Verified 09/06/19 07:31) Other lips swell, ataxia etodolac Allergy (Verified 09/06/19 07:31) Unknown misoprostol Allergy (Verified 09/06/19 07:31) Unknown celecoxib Adverse Reaction (Intermediate, Verified 09/06/19 07:31) Other heart palpitations diclofenac [Diclofenac] Adverse Reaction (Mild, Verified 09/06/19 07:31) Abd cramps/diarrhea ketorolac tromethamine [From Toradol] Adverse Reaction (Mild, Verified 09/06/19 07:31) Other balance issues metoclopramide HCl [From Reglan] Adverse Reaction (Mild, Verified 09/06/19 07:31) Other worsens restless leg atorvastatin [From Lipitor] Adverse Reaction (Verified 09/06/19 07:31) Other FACE SPASMS clindamycin Adverse Reaction (Verified 09/06/19 07:31) Mucosal lesions Home Medications: Ambulatory Orders Medication Instructions Recorded Levothyroxine [Synthroid] 175 mcg PO DAILY 09/01/13 Omeprazole [Prilosec] 20 mg PO DAILY 12/13/16 Cholecalciferol (Vitamin D3) 5,000 unit PO DAILY@1200 01/25/17 [Vitamin D3] Platinum-3 Fatty Acids/Fish Oil [Fish 2,000 mg PO LUNCH 03/21/18 Oil 1,000 mg Capsule] Gabapentin 800 mg PO BID 08/01/18 Gabapentin [Neurontin] 1,200 mg PO QHS 08/01/18 Lisinopril [Zestril] 10 mg PO LUNCH 08/01/18 Pramipexole Di-HCl [Pramipexole 1 mg PO LUNCH 08/01/18 Dihydrochloride] Pramipexole Di-HCl [Pramipexole 1.5 tab PO QHS 08/01/18 Dihydrochloride] Venlafaxine HCl [Effexor Xr] 1 tab PO DAILY 08/01/18 Venlafaxine HCl [Venlafaxine HCl 1 tab PO DAILY 08/01/18 ER] Aspirin [Aspir-Low] 81 mg PO LUNCH 05/02/19 Famotidine [Pepcid] 40 mg PO QHS 05/02/19 Ferrous Sulfate 325 mg PO DAILY 08/30/19 Ascorbic Acid [Vitamin C] 500 mg PO LUNCH 11/28/19 Doxycycline 100 mg PO BID 11/28/19 Montelukast [Singulair] 10 mg PO QHS 11/28/19 Pramipexole Di-HCl [Mirapex] 0.5 mg PO DAILY 11/28/19 Voriconazole 200 mg PO BID 11/28/19 Acetaminophen [Tylenol] 1,000 mg PO Q8 tab 12/04/19 Senna/Docusate Sodium [Senokot-S] 2 tab PO BID tab 12/04/19 Maternal Family History: Heart Disease, Hypertension Paternal Family History: Heart Disease, Hypertension Sibling Family History: Cancer, Diabetes, Hypertension, - Smoking Status: Former smoker Physical Exam Vital Signs Temp Pulse Resp BP 96.9 F L 77 16 134/73 H 03/19/20 08:29 03/19/20 08:29 03/19/20 08:29 03/19/20 08:29 General: Alert, Oriented x3, Cooperative, No apparent distress, Well developed, Well nourished HEENT: Atraumatic, PERRLA, EOMI, Normocephalic Lungs: Normal air movement Psych/Mental Status: Normal Affect, Appropriate, Alert and oriented to time, place, person, mood and affect Assessment/Plan Active Problems Chronic ulcer of right leg (Chronic) Diabetes mellitus with skin ulcer (Chronic) Former smoker (Chronic) History of right knee joint replacement (Chronic) Edema leg (Chronic) The patient appears to be tolerating hyperbaric oxygen therapy well, which will be continued as per the patient's medical plan. Treatment Course Number Number of HBO Treatments 50 Ordered Treatment Course Number 1 Treatment # 31 Chamber # 1 Chamber Type Monoplace Diabetes - Detail Diabetes Diabetes Type II Left Extremity Other - Detail Compromised/Failed Flap/Graft Yes: right knee (specify site in comment) Treatment Plan PATRICIA (Atmospheric Absolute) 2 Number of Minutes 90 Number of Air Breaks 0
[2020-03-20 07:45] LABS: Bedside Glucose 140 mg/dL (70-110)
[2020-03-20 08:41] VITALS: BP 145/75; BP 153/66; PULSE 82; PULSE 84; RESP 16; TEMP 35.6; TEMP 36.4
[2020-03-20 10:00] LABS: Bedside Glucose 143 mg/dL (70-110)
--- NOTE | 2020-03-20 10:48 | PCM.HBO.PN ---
History of Present Illness Date of Service: 03/20/20 Presenting Chief Complaint: Nonhealing ulcer right inferior knee s/p polyethylene exchange and gastrocnemius muscle flap reconstruction on 11/29/19 with compromise to the overlying skin graft and nonhealing ulcer right posterior leg. RAJESH CARRENO is a 59 year old currently undergoing hyperbaric oxygen therapy for a failing/compromised right medial gastrocnemius muscular rotation flap. Progress: This represents the 32nd hyperbaric oxygen therapy session of an anticipated 50 such sessions. Tolerance of hyperbaric oxygen therapy: Hyperbaric oxygen therapy was administered as per the facility's protocol. Hyperbaric oxygen therapy was administered for 90 minutes at 2 tahir with no air breaks. Patient tolerated hyperbaric oxygen therapy well, without complaints or complications. Upon emergence from the hyperbaric chamber, the patient's vital signs remained stable. The patient was discharged in good condition. 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, sequela (Chronic) Nonhealing ulcer of right lower extremity with fat layer exposed (Chronic) Nonhealing ulcer right inferior knee by tibial tubercle History of DVT (deep vein thrombosis) (Chronic) Septic arthritis of knee, right (Chronic) Hx of total knee replacement (Chronic) right Restless leg (Chronic) RENNY (obstructive sleep apnea) (Chronic) Hypothyroidism (Chronic) Diverticulosis of colon without diverticulitis (Chronic) Depression (Chronic) Postphlebitic syndrome with inflammation (Chronic) Lumbar disc disease (Chronic) History of Graves' disease (Chronic) Diabetes mellitus (Chronic) Renal insufficiency (Chronic) Presence of IVC filter (Chronic) Obesity (Chronic) Edema leg (Chronic) Leg swelling (Chronic) DVT of lower extremity (deep venous thrombosis) (Chronic) Allergies/Adverse Reactions: Allergies hydrocodone bitartrate [From Lortab] Allergy (Intermediate, Verified 09/06/19 07:31) Other lips swell, ataxia etodolac Allergy (Verified 09/06/19 07:31) Unknown misoprostol Allergy (Verified 09/06/19 07:31) Unknown celecoxib Adverse Reaction (Intermediate, Verified 09/06/19 07:31) Other heart palpitations diclofenac [Diclofenac] Adverse Reaction (Mild, Verified 09/06/19 07:31) Abd cramps/diarrhea ketorolac tromethamine [From Toradol] Adverse Reaction (Mild, Verified 09/06/19 07:31) Other balance issues metoclopramide HCl [From Reglan] Adverse Reaction (Mild, Verified 09/06/19 07:31) Other worsens restless leg atorvastatin [From Lipitor] Adverse Reaction (Verified 09/06/19 07:31) Other FACE SPASMS clindamycin Adverse Reaction (Verified 09/06/19 07:31) Mucosal lesions Home Medications: Ambulatory Orders Medication Instructions Recorded Levothyroxine [Synthroid] 175 mcg PO DAILY 09/01/13 Omeprazole [Prilosec] 20 mg PO DAILY 12/13/16 Cholecalciferol (Vitamin D3) 5,000 unit PO DAILY@1200 01/25/17 [Vitamin D3] [place]-3 Fatty Acids/Fish Oil [Fish 2,000 mg PO LUNCH 03/21/18 Oil 1,000 mg Capsule] Gabapentin 800 mg PO BID 08/01/18 Gabapentin [Neurontin] 1,200 mg PO QHS 08/01/18 Lisinopril [Zestril] 10 mg PO LUNCH 08/01/18 Pramipexole Di-HCl [Pramipexole 1 mg PO LUNCH 08/01/18 Dihydrochloride] Pramipexole Di-HCl [Pramipexole 1.5 tab PO QHS 08/01/18 Dihydrochloride] Venlafaxine HCl [Effexor Xr] 1 tab PO DAILY 08/01/18 Venlafaxine HCl [Venlafaxine HCl 1 tab PO DAILY 08/01/18 ER] Aspirin [Aspir-Low] 81 mg PO LUNCH 05/02/19 Famotidine [Pepcid] 40 mg PO QHS 05/02/19 Ferrous Sulfate 325 mg PO DAILY 08/30/19 Ascorbic Acid [Vitamin C] 500 mg PO LUNCH 11/28/19 Doxycycline 100 mg PO BID 11/28/19 Montelukast [Singulair] 10 mg PO QHS 11/28/19 Pramipexole Di-HCl [Mirapex] 0.5 mg PO DAILY 11/28/19 Voriconazole 200 mg PO BID 11/28/19 Acetaminophen [Tylenol] 1,000 mg PO Q8 tab 12/04/19 Senna/Docusate Sodium [Senokot-S] 2 tab PO BID tab 12/04/19 Maternal Family History: Heart Disease, Hypertension Paternal Family History: Heart Disease, Hypertension Sibling Family History: Cancer, Diabetes, Hypertension, - Smoking Status: Former smoker Physical Exam Vital Signs Temp Pulse Resp BP 96.0 F L 82 16 153/66 H 03/20/20 08:41 03/20/20 08:41 03/20/20 08:41 03/20/20 08:41 Assessment/Plan Active Problems Chronic ulcer of right leg (Chronic) Diabetes mellitus with skin ulcer (Chronic) Former smoker (Chronic) History of right knee joint replacement (Chronic) Edema leg (Chronic) The patient appears to be tolerating hyperbaric oxygen therapy well, which will be continued as per the patient's medical plan. Treatment Course Number Number of HBO Treatments 50 Ordered Treatment Course Number 1 Treatment # 32 Chamber # 1 Chamber Type Monoplace Diabetes - Detail Diabetes Diabetes Type II Left Extremity Other - Detail Compromised/Failed Flap/Graft Yes: right knee (specify site in comment) Treatment Plan PATRICIA (Atmospheric Absolute) 2 Number of Minutes 90 Number of Air Breaks 0
[2020-03-21 07:50] LABS: Bedside Glucose 213 mg/dL (70-110)
[2020-03-21 09:15] VITALS: BP 119/69; PULSE 92; RESP 16; TEMP 36.6
[2020-03-21 10:05] LABS: Bedside Glucose 119 mg/dL (70-110)
--- NOTE | 2020-03-21 11:21 | HBO.PN.PCM_ITS ---
History of Present Illness Date of Service: 03/21/20 Presenting Chief Complaint: Nonhealing ulcer right inferior knee s/p polyethylene exchange and gastrocnemius muscle flap reconstruction on 11/29/19 with compromise to the overlying skin graft and nonhealing ulcer right posterior leg. RAJESH CARRENO is a 59 year old currently undergoing hyperbaric oxygen therapy for a failing/compromised right medial gastrocnemius muscular rotation flap. Progress: This represents the 33rd hyperbaric oxygen therapy session of an anticipated 50 such sessions. Tolerance of hyperbaric oxygen therapy: Hyperbaric oxygen therapy was administered as per the facility's protocol. Hyperbaric oxygen therapy was administered for 90 minutes at 2 tahir with no air breaks. Patient tolerated hyperbaric oxygen therapy well, without complaints or complications. Upon emergence from the hyperbaric chamber, the patient's vital signs remained stable. The patient was discharged in good condition. 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, sequela (Chronic) Nonhealing ulcer of right lower extremity with fat layer exposed (Chronic) Nonhealing ulcer right inferior knee by tibial tubercle History of DVT (deep vein thrombosis) (Chronic) Septic arthritis of knee, right (Chronic) Hx of total knee replacement (Chronic) right Restless leg (Chronic) RENNY (obstructive sleep apnea) (Chronic) Hypothyroidism (Chronic) Diverticulosis of colon without diverticulitis (Chronic) Depression (Chronic) Postphlebitic syndrome with inflammation (Chronic) Lumbar disc disease (Chronic) History of Graves' disease (Chronic) Diabetes mellitus (Chronic) Renal insufficiency (Chronic) Presence of IVC filter (Chronic) Obesity (Chronic) Edema leg (Chronic) Leg swelling (Chronic) DVT of lower extremity (deep venous thrombosis) (Chronic) Allergies/Adverse Reactions: Allergies hydrocodone bitartrate [From Lortab] Allergy (Intermediate, Verified 09/06/19 07:31) Other lips swell, ataxia etodolac Allergy (Verified 09/06/19 07:31) Unknown misoprostol Allergy (Verified 09/06/19 07:31) Unknown celecoxib Adverse Reaction (Intermediate, Verified 09/06/19 07:31) Other heart palpitations diclofenac [Diclofenac] Adverse Reaction (Mild, Verified 09/06/19 07:31) Abd cramps/diarrhea ketorolac tromethamine [From Toradol] Adverse Reaction (Mild, Verified 09/06/19 07:31) Other balance issues metoclopramide HCl [From Reglan] Adverse Reaction (Mild, Verified 09/06/19 07:31) Other worsens restless leg atorvastatin [From Lipitor] Adverse Reaction (Verified 09/06/19 07:31) Other FACE SPASMS clindamycin Adverse Reaction (Verified 09/06/19 07:31) Mucosal lesions Home Medications: Ambulatory Orders Medication Instructions Recorded Levothyroxine [Synthroid] 175 mcg PO DAILY 09/01/13 Omeprazole [Prilosec] 20 mg PO DAILY 12/13/16 Cholecalciferol (Vitamin D3) 5,000 unit PO DAILY@1200 01/25/17 [Vitamin D3] [place]-3 Fatty Acids/Fish Oil [Fish 2,000 mg PO LUNCH 03/21/18 Oil 1,000 mg Capsule] Gabapentin 800 mg PO BID 08/01/18 Gabapentin [Neurontin] 1,200 mg PO QHS 08/01/18 Lisinopril [Zestril] 10 mg PO LUNCH 08/01/18 Pramipexole Di-HCl [Pramipexole 1 mg PO LUNCH 08/01/18 Dihydrochloride] Pramipexole Di-HCl [Pramipexole 1.5 tab PO QHS 08/01/18 Dihydrochloride] Venlafaxine HCl [Effexor Xr] 1 tab PO DAILY 08/01/18 Venlafaxine HCl [Venlafaxine HCl 1 tab PO DAILY 08/01/18 ER] Aspirin [Aspir-Low] 81 mg PO LUNCH 05/02/19 Famotidine [Pepcid] 40 mg PO QHS 05/02/19 Ferrous Sulfate 325 mg PO DAILY 08/30/19 Ascorbic Acid [Vitamin C] 500 mg PO LUNCH 11/28/19 Doxycycline 100 mg PO BID 11/28/19 Montelukast [Singulair] 10 mg PO QHS 11/28/19 Pramipexole Di-HCl [Mirapex] 0.5 mg PO DAILY 11/28/19 Voriconazole 200 mg PO BID 11/28/19 Acetaminophen [Tylenol] 1,000 mg PO Q8 tab 12/04/19 Senna/Docusate Sodium [Senokot-S] 2 tab PO BID tab 12/04/19 Maternal Family History: Heart Disease, Hypertension Paternal Family History: Heart Disease, Hypertension Sibling Family History: Cancer, Diabetes, Hypertension, - Smoking Status: Former smoker Physical Exam Vital Signs Temp Pulse Resp BP 97.9 F 92 16 119/69 03/21/20 09:15 03/21/20 09:15 03/21/20 09:15 03/21/20 09:15 General: Alert, Oriented x3, Cooperative, No apparent distress HEENT: Atraumatic, Normocephalic, TM's Clear Lungs: Normal air movement Psych/Mental Status: Normal Affect Assessment/Plan Active Problems Chronic ulcer of right leg (Chronic) Diabetes mellitus with skin ulcer (Chronic) Former smoker (Chronic) History of right knee joint replacement (Chronic) Edema leg (Chronic) The patient appears to be tolerating hyperbaric oxygen therapy well, which will be continued as per the patient's medical plan. Treatment Course Number Number of HBO Treatments 50 Ordered Treatment Course Number 1 Treatment # 33 Chamber # 1 Chamber Type Monoplace Diabetes - Detail Diabetes Diabetes Type II Left Extremity Other - Detail Compromised/Failed Flap/Graft Yes: right knee (specify site in comment) Treatment Plan PATRICIA (Atmospheric Absolute) 2 Number of Minutes 90 Number of Air Breaks 0 - Wound Center CF Procedures HBO Supervision: [id number] Hyperbaric Oxygen; supervision
[2020-03-22 07:46] LABS: Bedside Glucose 131 mg/dL (70-110)
[2020-03-22 09:31] VITALS: BP 107/62; BP 136/59; PULSE 78; PULSE 85; RESP 16; RESP 17; TEMP 36.6; TEMP 36.7
[2020-03-22 10:15] LABS: Bedside Glucose 158 mg/dL (70-110)
--- NOTE | 2020-03-22 14:30 | PCM.HBO.PN ---
History of Present Illness Date of Service: 03/22/20 Presenting Chief Complaint: Nonhealing ulcer right inferior knee s/p polyethylene exchange and gastrocnemius muscle flap reconstruction on 11/29/19 with compromise to the overlying skin graft and nonhealing ulcer right posterior leg. RAJESH CARRENO is a 59 year old currently undergoing hyperbaric oxygen therapy for a failing/compromised right medial gastrocnemius muscular rotation flap. Progress: This represents the 34th hyperbaric oxygen therapy session of an anticipated 50 such sessions. Tolerance of hyperbaric oxygen therapy: Hyperbaric oxygen therapy was administered as per the facility's protocol. Hyperbaric oxygen therapy was administered for 90 minutes at 2 tahir with no air breaks. Patient tolerated hyperbaric oxygen therapy well, without complaints or complications. Upon emergence from the hyperbaric chamber, the patient's vital signs remained stable. The patient was discharged in good condition. 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, sequela (Chronic) Nonhealing ulcer of right lower extremity with fat layer exposed (Chronic) Nonhealing ulcer right inferior knee by tibial tubercle History of DVT (deep vein thrombosis) (Chronic) Septic arthritis of knee, right (Chronic) Hx of total knee replacement (Chronic) right Restless leg (Chronic) RENNY (obstructive sleep apnea) (Chronic) Hypothyroidism (Chronic) Diverticulosis of colon without diverticulitis (Chronic) Depression (Chronic) Postphlebitic syndrome with inflammation (Chronic) Lumbar disc disease (Chronic) History of Graves' disease (Chronic) Diabetes mellitus (Chronic) Renal insufficiency (Chronic) Presence of IVC filter (Chronic) Obesity (Chronic) Edema leg (Chronic) Leg swelling (Chronic) DVT of lower extremity (deep venous thrombosis) (Chronic) Allergies/Adverse Reactions: Allergies hydrocodone bitartrate [From Lortab] Allergy (Intermediate, Verified 09/06/19 07:31) Other lips swell, ataxia etodolac Allergy (Verified 09/06/19 07:31) Unknown misoprostol Allergy (Verified 09/06/19 07:31) Unknown celecoxib Adverse Reaction (Intermediate, Verified 09/06/19 07:31) Other heart palpitations diclofenac [Diclofenac] Adverse Reaction (Mild, Verified 09/06/19 07:31) Abd cramps/diarrhea ketorolac tromethamine [From Toradol] Adverse Reaction (Mild, Verified 09/06/19 07:31) Other balance issues metoclopramide HCl [From Reglan] Adverse Reaction (Mild, Verified 09/06/19 07:31) Other worsens restless leg atorvastatin [From Lipitor] Adverse Reaction (Verified 09/06/19 07:31) Other FACE SPASMS clindamycin Adverse Reaction (Verified 09/06/19 07:31) Mucosal lesions Home Medications: Ambulatory Orders Medication Instructions Recorded Levothyroxine [Synthroid] 175 mcg PO DAILY 09/01/13 Omeprazole [Prilosec] 20 mg PO DAILY 12/13/16 Cholecalciferol (Vitamin D3) 5,000 unit PO DAILY@1200 01/25/17 [Vitamin D3] [place]-3 Fatty Acids/Fish Oil [Fish 2,000 mg PO LUNCH 03/21/18 Oil 1,000 mg Capsule] Gabapentin 800 mg PO BID 08/01/18 Gabapentin [Neurontin] 1,200 mg PO QHS 08/01/18 Lisinopril [Zestril] 10 mg PO LUNCH 08/01/18 Pramipexole Di-HCl [Pramipexole 1 mg PO LUNCH 08/01/18 Dihydrochloride] Pramipexole Di-HCl [Pramipexole 1.5 tab PO QHS 08/01/18 Dihydrochloride] Venlafaxine HCl [Effexor Xr] 1 tab PO DAILY 08/01/18 Venlafaxine HCl [Venlafaxine HCl 1 tab PO DAILY 08/01/18 ER] Aspirin [Aspir-Low] 81 mg PO LUNCH 05/02/19 Famotidine [Pepcid] 40 mg PO QHS 05/02/19 Ferrous Sulfate 325 mg PO DAILY 08/30/19 Ascorbic Acid [Vitamin C] 500 mg PO LUNCH 11/28/19 Doxycycline 100 mg PO BID 11/28/19 Montelukast [Singulair] 10 mg PO QHS 11/28/19 Pramipexole Di-HCl [Mirapex] 0.5 mg PO DAILY 11/28/19 Voriconazole 200 mg PO BID 11/28/19 Acetaminophen [Tylenol] 1,000 mg PO Q8 tab 12/04/19 Senna/Docusate Sodium [Senokot-S] 2 tab PO BID tab 12/04/19 Maternal Family History: Heart Disease, Hypertension Paternal Family History: Heart Disease, Hypertension Sibling Family History: Cancer, Diabetes, Hypertension, - Smoking Status: Former smoker Physical Exam Vital Signs Temp Pulse Resp BP 97.8 F 78 17 136/59 H 03/22/20 09:31 03/22/20 09:31 03/22/20 09:31 03/22/20 09:31 General: Alert, Oriented x3, Cooperative, No apparent distress Psych/Mental Status: Normal Affect, Appropriate Assessment/Plan Active Problems Chronic ulcer of right leg (Chronic) Diabetes mellitus with skin ulcer (Chronic) Former smoker (Chronic) History of right knee joint replacement (Chronic) Edema leg (Chronic) The patient appears to be tolerating hyperbaric oxygen therapy well, which will be continued as per the patient's medical plan. Treatment Course Number Number of HBO Treatments 50 Ordered Treatment Course Number 1 Treatment # 34 Chamber # 1 Chamber Type Monoplace Diabetes - Detail Diabetes Diabetes Type II Left Extremity Other - Detail Compromised/Failed Flap/Graft Yes: right knee (specify site in comment) Treatment Plan PATRICIA (Atmospheric Absolute) 2 Number of Minutes 90 Number of Air Breaks 0
[2020-03-25 08:05] LABS: Bedside Glucose 126 mg/dL (70-110)
[2020-03-25 08:05] LABS: Bedside Glucose 140 mg/dL (70-110)
--- NOTE | 2020-03-25 08:42 | PCM.HBO.PN ---
History of Present Illness Date of Service: 03/25/20 Presenting Chief Complaint: Nonhealing ulcer right inferior knee s/p polyethylene exchange and gastrocnemius muscle flap reconstruction on 11/29/19 with compromise to the overlying skin graft and nonhealing ulcer right posterior leg. RAJESH CARRENO is a 59 year old currently undergoing hyperbaric oxygen therapy for a failing/compromised right medial gastrocnemius muscular rotation flap. Progress: This represents the 35th hyperbaric oxygen therapy session of an anticipated 50 such sessions. Tolerance of hyperbaric oxygen therapy: Hyperbaric oxygen therapy was administered as per the facility's protocol. Hyperbaric oxygen therapy was administered for 90 minutes at 2 tahir with no air breaks. Patient tolerated hyperbaric oxygen therapy well, without complaints or complications. Upon emergence from the hyperbaric chamber, the patient's vital signs remained stable. The patient was discharged in good condition. 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, sequela (Chronic) Nonhealing ulcer of right lower extremity with fat layer exposed (Chronic) Nonhealing ulcer right inferior knee by tibial tubercle History of DVT (deep vein thrombosis) (Chronic) Septic arthritis of knee, right (Chronic) Hx of total knee replacement (Chronic) right Restless leg (Chronic) RENNY (obstructive sleep apnea) (Chronic) Hypothyroidism (Chronic) Diverticulosis of colon without diverticulitis (Chronic) Depression (Chronic) Postphlebitic syndrome with inflammation (Chronic) Lumbar disc disease (Chronic) History of Graves' disease (Chronic) Diabetes mellitus (Chronic) Renal insufficiency (Chronic) Presence of IVC filter (Chronic) Obesity (Chronic) Edema leg (Chronic) Leg swelling (Chronic) DVT of lower extremity (deep venous thrombosis) (Chronic) Allergies/Adverse Reactions: Allergies hydrocodone bitartrate [From Lortab] Allergy (Intermediate, Verified 09/06/19 07:31) Other lips swell, ataxia etodolac Allergy (Verified 09/06/19 07:31) Unknown misoprostol Allergy (Verified 09/06/19 07:31) Unknown celecoxib Adverse Reaction (Intermediate, Verified 09/06/19 07:31) Other heart palpitations diclofenac [Diclofenac] Adverse Reaction (Mild, Verified 09/06/19 07:31) Abd cramps/diarrhea ketorolac tromethamine [From Toradol] Adverse Reaction (Mild, Verified 09/06/19 07:31) Other balance issues metoclopramide HCl [From Reglan] Adverse Reaction (Mild, Verified 09/06/19 07:31) Other worsens restless leg atorvastatin [From Lipitor] Adverse Reaction (Verified 09/06/19 07:31) Other FACE SPASMS clindamycin Adverse Reaction (Verified 09/06/19 07:31) Mucosal lesions Home Medications: Ambulatory Orders Medication Instructions Recorded Levothyroxine [Synthroid] 175 mcg PO DAILY 09/01/13 Omeprazole [Prilosec] 20 mg PO DAILY 12/13/16 Cholecalciferol (Vitamin D3) 5,000 unit PO DAILY@1200 01/25/17 [Vitamin D3] [place]-3 Fatty Acids/Fish Oil [Fish 2,000 mg PO LUNCH 03/21/18 Oil 1,000 mg Capsule] Gabapentin 800 mg PO BID 08/01/18 Gabapentin [Neurontin] 1,200 mg PO QHS 08/01/18 Lisinopril [Zestril] 10 mg PO LUNCH 08/01/18 Pramipexole Di-HCl [Pramipexole 1 mg PO LUNCH 08/01/18 Dihydrochloride] Pramipexole Di-HCl [Pramipexole 1.5 tab PO QHS 08/01/18 Dihydrochloride] Venlafaxine HCl [Effexor Xr] 1 tab PO DAILY 08/01/18 Venlafaxine HCl [Venlafaxine HCl 1 tab PO DAILY 08/01/18 ER] Aspirin [Aspir-Low] 81 mg PO LUNCH 05/02/19 Famotidine [Pepcid] 40 mg PO QHS 05/02/19 Ferrous Sulfate 325 mg PO DAILY 08/30/19 Ascorbic Acid [Vitamin C] 500 mg PO LUNCH 11/28/19 Doxycycline 100 mg PO BID 11/28/19 Montelukast [Singulair] 10 mg PO QHS 11/28/19 Pramipexole Di-HCl [Mirapex] 0.5 mg PO DAILY 11/28/19 Voriconazole 200 mg PO BID 11/28/19 Acetaminophen [Tylenol] 1,000 mg PO Q8 tab 12/04/19 Senna/Docusate Sodium [Senokot-S] 2 tab PO BID tab 12/04/19 Maternal Family History: Heart Disease, Hypertension Paternal Family History: Heart Disease, Hypertension Sibling Family History: Cancer, Diabetes, Hypertension, - Smoking Status: Former smoker Physical Exam Vital Signs Temp Pulse Resp BP 97.8 F 78 17 136/59 H 03/22/20 09:31 03/22/20 09:31 03/22/20 09:31 03/22/20 09:31 General: Alert, Oriented x3, Cooperative, No apparent distress HEENT: Atraumatic, TM's Clear Lungs: Clear to auscultation, Normal air movement Cardiovascular: Regular rate, Regular Rhythm Psych/Mental Status: Normal Affect, Appropriate, Alert and oriented to time, place, person, mood and affect Assessment/Plan Active Problems Chronic ulcer of right leg (Chronic) Diabetes mellitus with skin ulcer (Chronic) Former smoker (Chronic) History of right knee joint replacement (Chronic) Edema leg (Chronic) Treatment Course Number Number of HBO Treatments 50 Ordered Treatment Course Number 1 Treatment # 35 Chamber # 1 Chamber Type Monoplace Diabetes - Detail Diabetes Diabetes Type II Left Extremity Other - Detail Compromised/Failed Flap/Graft Yes: right knee (specify site in comment) Treatment Plan PATRICIA (Atmospheric Absolute) 2 Number of Minutes 90 Number of Air Breaks 0
[2020-03-25 09:01] VITALS: BP 126/52; BP 127/85; PULSE 89; PULSE 99; RESP 16; TEMP 36.1; TEMP 36.2
[2020-03-25 10:01] LABS: Bedside Glucose 138 mg/dL (70-110)
[2020-03-25 10:05] VITALS: BP 127/85; PULSE 89; RESP 16; TEMP 36.2; BMI 45.3
--- NOTE | 2020-03-25 13:23 | PCM.WC.PN ---
(1) Chronic ulcer of right leg Status: Chronic Code(s): L97.919 - Non-pressure chronic ulcer of unspecified part of right lower leg with unspecified severity (2) Diabetes mellitus with skin ulcer Status: Chronic Code(s): E11.622 - Type 2 diabetes mellitus with other skin ulcer; L98.499 - Non-pressure chronic ulcer of skin of other sites with unspecified severity (3) Former smoker Status: Chronic Code(s): Z87.891 - Personal history of nicotine dependence (4) History of right knee joint replacement Status: Chronic Code(s): Z96.651 - Presence of right artificial knee joint (5) Edema leg Status: Chronic Code(s): R60.0 - Localized edema Type of Wound Date of Service: 03/25/20 Chief Complaint: Nonhealing ulcer right inferior knee s/p polyethylene exchange and gastrocnemius muscle flap reconstruction on 11/29/19 with compromise to the overlying skin graft and nonhealing ulcer right posterior leg. History of Wound: Surgery 11/29/19 - Irrigation debridement with polyethylene exchange right total knee and excision sinus tract right knee by Dr Barton. 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 Lazaro. Operative culture - negative. Currently on Doxycycline and Voriconazole. Prealbumin on 11/30/19 was 24.7. Encourage nutritional supplementation with protein to help the healing process. Today she denies fever. Her appetite is good. She is ambulating ok. She doesn't need the knee brace and occasionally will use the walker. She has burning nerve pain and tingling in the area of the sural nerve distribution. She is noticing improvement with the Neurontin. She has started HBO treatments for compromise to the skin graft and is tolerating the treatments. We have started advanced skin substitute grafts to her right knee. Thus far we have placed 4 applications of Epifix placental connective tissue graft. She had recent labs on 03/15/20. Her Alkaline Phosphatase was 166. It was 172 in November,. She will followup with her PCP. Progress of Wound: Patient tolerating HBOT well for her compromised skin graft. Muscle flap is healed. Skin graft/ulcer on right knee is improved. Nonhealing ulcer right posterior leg is improving. - Physical Exam Vital Signs Temp Pulse Resp BP 97.2 F L 89 16 127/85 H 03/25/20 10:05 03/25/20 10:05 03/25/20 10:05 03/25/20 10:05 General: Alert, Oriented x3, Cooperative HEENT: Atraumatic Oral: Moist Mucosa Lungs: Normal air movement Cardiovascular: Regular rate Extremities: Capillary Refill Less than 3 Seconds, Edema Skin: Ulcer/ Wound - Right anterior knee cluster is decreasing is size. Right posterior calf ulcer is pink and decreasing in size. Wound Measurements and Assessment WC - Nurse 1 - General Ulcer Measurement Start: 03/05/20 08:56 Freq: Status: Active Protocol: Activity Type Activity Date Activity User E-Sign Co-Sign Detail Recorded Client Recorded Date Recorded By Document 03/25/20 10:05 DL [id number] 03/25/20 10:12 DL 03/25/20 10:05 Wound Center Nurse 1 [Ulcer Assessment] #4 R Post calf -Current Size (cm) - Length 0.8 -Current Size (cm) - Width 0.2 -Current Size (cm) - Depth 0.1 -Total Square Cm 0.16 -Photo Taken No -Exudate Amt None Present -Wound Margin Distinct, Outline Attached -Granulation Amt Small (1-33%) -Granulation Quality Kerman -Necrosis Amt Small (1-33%) -Necrotic Tissue Type Adherent Slough -Structure Exposed N/A -Texture (Aileen-wound Skin Appearance) Scarring -Moisture (Aileen-wound Skin Appearance Dry/Scaly ) -Color (Aileen-wound Skin Appearance) No Abnormality -Temperature (Aileen-wound Skin No Abnormality Appearance) (Pt Warm) -Tenderness on Palpation (Aileen-wound No Skin Appearance) -Ulcer Cleansing Wound Cleanser -Foul Odor after Cleansing No -Anesthetic Used 5% Lidocaine Gel 3-right knee graft site -Current Size (cm) - Length 8.5 -Current Size (cm) - Width 2.8 -Current Size (cm) - Depth 0.1 -Total Square Cm 23.80 -Photo Taken No -Exudate Amt None Present -Wound Margin Thickened -Granulation Amt Small (1-33%) -Granulation Quality Kerman -Necrosis Amt Large (67-100%) -Necrotic Tissue Type Eschar -Structure Exposed N/A -Texture (Aileen-wound Skin Appearance) Scarring -Moisture (Aileen-wound Skin Appearance Dry/Scaly ) -Color (Aileen-wound Skin Appearance) No Abnormality -Temperature (Aileen-wound Skin No Abnormality Appearance) (Pt Warm) -Tenderness on Palpation (Aileen-wound No Skin Appearance) -Ulcer Cleansing Wound Cleanser -Foul Odor after Cleansing No -Anesthetic Used 5% Lidocaine Gel [Edema Assessment] -Right Calf (cm) 38.5 -Right Ankle (cm) 24.5 WC - Nurse 2 - General Ulcer CM Notes Start: 03/05/20 08:56 Freq: Status: Active Protocol: Activity Type Activity Date Activity User E-Sign Co-Sign Detail Recorded Client Recorded Date Recorded By Document 03/25/20 10:47 ALETA [id number] 03/25/20 10:54 ALETA 03/25/20 10:47 Wound Center Nurse 2 [Procedure/Treatment] #4 R Post calf -Time 10:51 -Correct Patient Yes -Correct Side, Site, Position Yes -Correct Procedure Yes -Procedure Performed Yes -Type of Procedure Debridement -Clinical Debridement Subcutaneous -Tissue Removed Subcutaneous -Post Debridement (cm) - Length 1.6 -Post Debridement (cm) - Width 1 -Post Debridement (cm) - Depth 0.3 -Total Square (Post) (cm) 1.6 -Area of Debridement (cm) - Length 1.6 -Area of Debridement (cm) - Width 1 -Total Square (Area) (cm) 1.6 -Tunneling No -Undermining/Tunneling No -Circular Undermining No -Wound/Ulcer Outcome Not Healed -Ulcer Cleansing Rinsed/ Irrigated with Saline -Foul Odor after Cleansing No -Bioengineered Tissue No -Bleeding Controlled with Pressure -Offloading No -Treatment Response Procedure Tolerated Well -Debridement - Subq, 1st 20sq cm Yes 3-right knee graft site -Time 10:48 -Correct Patient Yes -Correct Side, Site, Position Yes -Correct Procedure Yes -Procedure Performed Yes -Type of Procedure Debridement -Clinical Debridement Subcutaneous -Tissue Removed Subcutaneous -Post Debridement (cm) - Length 7.7 -Post Debridement (cm) - Width 3 -Post Debridement (cm) - Depth 0.2 -Total Square (Post) (cm) 23.1 -Area of Debridement (cm) - Length 7.7 -Area of Debridement (cm) - Width 3 -Total Square (Area) (cm) 23.1 -Tunneling No -Undermining/Tunneling No -Circular Undermining No -Wound/Ulcer Outcome Not Healed -Ulcer Cleansing Rinsed/ Irrigated with Saline -Foul Odor after Cleansing No -Bioengineered Tissue Yes -Type of Bioengineered Tissue Epifix -Expiration Date 10/03/24 -Product Lot Number [id number] -Percent Used 100 -Bleeding Controlled with Pressure -Other saline [id number] -Offloading No -Treatment Response Procedure Tolerated Well -Debridement - Subq, 1st 20sq cm No -Debridement, SubQ, ea addt'l 20sq cm 1 or part thereof -Epifix (per sq cm) 4 [See Physician Procedure note for Specifics] Pain Scale: 0-10 Numeric [Pain] -Is Patient Pain Free? Yes WC - Nurse 3 - General Ulcer D/C NN Start: 03/05/20 08:56 Freq: Status: Active Protocol: Activity Type Activity Date Activity User E-Sign Co-Sign Detail Recorded Client Recorded Date Recorded By Document 03/25/20 11:09 SOLOMON [id number] 03/25/20 11:10 DL 03/25/20 11:09 Wound Care Nurse 3 [Wound Dressing] #4 R Post calf -Ulcer Cleansing Rinsed/ Irrigated with Saline -Foul Odor after Cleansing No -Primary Dressing Covered/Secured Dry Gauze, with Secured with Tape 3-right knee graft site -Ulcer Cleansing Rinsed/ Irrigated with Saline -Foul Odor after Cleansing No -Primary Dressing Covered/Secured Dry Gauze, with Secured with Tape WC - Visit Discharge [Visit Discharge Information] -Discharge Condition Stable -Ambulatory Status Ambulatory -Transportation Private Auto Musculoskeletal: Tenderness Lymphatic: No Cervical, Supraclavicular, or Inguinal Adenopathy Neurological: Cranial nerves II-XII grossly intact Psych/Mental Status: Normal Affect, Appropriate Debridement Note Post-Debridement Measurements/Treatment WC - Nurse 2 - General Ulcer CM Notes Start: 03/05/20 08:56 Freq: Status: Active Protocol: Activity Type Activity Date Activity User E-Sign Co-Sign Detail Recorded Client Recorded Date Recorded By Document 03/11/20 10:43 ALETA [id number] 03/11/20 11:01 Document 03/18/20 10:39 [id number] 03/18/20 10:47 Document 03/25/20 10:47 [id number] 03/25/20 10:54 03/11/20 03/18/20 03/25/20 10:43 10:39 10:47 Wound Center Nurse 2 #4 R Post calf -Time 10:45 10:40 10:51 -Correct Patient Yes Yes Yes -Correct Side, Site, Position Yes Yes Yes -Correct Procedure Yes Yes Yes -Procedure Performed Yes Yes Yes -Type of Procedure Debridement Debridement Debridement -Clinical Debridement Subcutaneous Subcutaneous Subcutaneous -Tissue Removed Subcutaneous Subcutaneous Subcutaneous -Post Debridement (cm) - Length 1.8 0.7 1.6 -Post Debridement (cm) - Width 0.7 0.4 1 -Post Debridement (cm) - Depth 0.4 0.2 0.3 -Total Square (Post) (cm) 1.26 0.28 1.6 -Area of Debridement (cm) - Length 1.8 0.7 1.6 -Area of Debridement (cm) - Width 0.7 0.4 1 -Total Square (Area) (cm) 1.26 0.28 1.6 -Tunneling No No No -Undermining/Tunneling No No No -Circular Undermining No No No -Wound/Ulcer Outcome Not Healed Not Healed Not Healed -Ulcer Cleansing Rinsed/ Rinsed/ Rinsed/ Irrigated with Irrigated with Irrigated with Saline Saline Saline -Foul Odor after Cleansing No No No -Bioengineered Tissue No No No -Bleeding Controlled with Pressure Pressure Pressure -Offloading No No No -Treatment Response Procedure Procedure Procedure Tolerated Well Tolerated Well Tolerated Well -Debridement - Subq, 1st 20sq cm Yes Yes Yes 3-right knee graft site -Time 10:45 10:40 10:48 -Correct Patient Yes Yes Yes -Correct Side, Site, Position Yes Yes Yes -Correct Procedure Yes Yes Yes -Procedure Performed Yes Yes Yes -Type of Procedure Debridement Debridement Debridement -Clinical Debridement Subcutaneous Subcutaneous Subcutaneous -Tissue Removed Subcutaneous Subcutaneous Subcutaneous -Post Debridement (cm) - Length 8.5 9 7.7 -Post Debridement (cm) - Width 3.6 2.8 3 -Post Debridement (cm) - Depth 0.2 0.1 0.2 -Total Square (Post) (cm) 30.60 25.2 23.1 -Area of Debridement (cm) - Length 8.5 9 7.7 -Area of Debridement (cm) - Width 3.6 2.8 3 -Total Square (Area) (cm) 30.60 25.2 23.1 -Tunneling No No No -Undermining/Tunneling No No No -Circular Undermining No No No -Wound/Ulcer Outcome Not Healed Not Healed Not Healed -Ulcer Cleansing Rinsed/ Rinsed/ Rinsed/ Irrigated with Irrigated with Irrigated with Saline Saline Saline -Foul Odor after Cleansing No No No -Bioengineered Tissue Yes Yes Yes -Type of Bioengineered Tissue Epifix Epifix Epifix -Expiration Date 10/03/24 10/03/24 10/03/24 -Product Lot Number [id number] -Percent Used 100 100 100 -Bleeding Controlled with Pressure Pressure Pressure -Other saline [id number] SALINE [id number] saline [id number] -Offloading No No No -Treatment Response Procedure Procedure Procedure Tolerated Well Tolerated Well Tolerated Well -Debridement - Subq, 1st 20sq cm No No No -Debridement, SubQ, ea addt'l 20sq cm 1 or part thereof -Apply Skin Sub - 1st 25 sq cm - Legs 1 1 -Apply Skin Sub - each addt'l 25 sq cm 1 - Legs -Epifix (per sq cm) 4 4 4 Pain Scale: 0-10 Numeric Is Patient Pain Free? Yes Yes Yes - Nurse 3 - General Ulcer D/C NN Start: 03/05/20 08:56 Freq: Status: Active Protocol: Activity Type Activity Date Activity User E-Sign Co-Sign Detail Recorded Client Recorded Date Recorded By Document 03/11/20 11:10 DL [id number] 03/11/20 11:11 DL Document 03/18/20 10:48 [id number] 03/18/20 10:49 Document 03/25/20 11:09 DL [id number] 03/25/20 11:10 DL 03/11/20 03/18/20 03/25/20 11:10 10:48 11:09 Wound Care Nurse 3 #4 R Post calf -Ulcer Cleansing Rinsed/ Rinsed/ Rinsed/ Irrigated with Irrigated with Irrigated with Saline Saline Saline -Foul Odor after Cleansing No No No -Primary Dressing Applied Aquacel AG 2x2 -Primary Dressing Covered/Secured with Dry Gauze & Dry Gauze & Dry Gauze, Roll Gauze Roll Gauze, Secured with Secured with Tape Tape -Aquacel AG 2x2 1 3-right knee graft site -Ulcer Cleansing Rinsed/ Rinsed/ Rinsed/ Irrigated with Irrigated with Irrigated with Saline Saline Saline -Foul Odor after Cleansing No No No -Other Dressing Epifix -Primary Dressing Covered/Secured with Dry Gauze & Dry Gauze & Dry Gauze, Roll Gauze Roll Gauze, Secured with Secured with Tape Tape -Other Covering roger Right -Compression Wrap Roger Wrap Treatment Response Procedure Tolerated Well Pain Scale: 0-10 Numeric Is Patient Pain Free? Yes Yes WC - Visit Discharge Discharge Condition Stable Stable Stable Ambulatory Status Ambulatory Ambulatory Ambulatory Transportation Private Auto Private Auto Private Auto Medication Reconcilliation completed & Yes provided to patient/care provider Clinical Summary of Care Provided Yes Wound debrided: Anterior knee ulcer cluster Laterality: Right Type of Debridement: Excisional debridement Anesthesia Used: 5% Lidocaine Gel Depth: Down to and including healthy tissue, in the subcutaneous layer Percentage of wound debrided: 100 Instrument Used: 3mm curette Tissue Removed: Subcutaneous tissue and slough Severity: Limited To Skin Breakdown Amount of bleeding with debridement: Mild Bleeding Controlled with: Pressure Patient tolerated procedure well - Additional Wound Wound debrided: posterior leg/calf Laterality: Right Type of Debridement: Excisional debridement Anesthesia Used: 5% Lidocaine Gel Depth: Down to and including healthy tissue, in the subcutaneous layer Percentage of wound debrided: 100 Instrument Used: 3mm curette Tissue Removed: Subcutaneous tissue and slough Severity: Fat Layer Exposed Amount of bleeding with debridement: Mild Bleeding Controlled with: Pressure, Compression and gauze Patient tolerated procedure: Patient tolerated procedure well Assessment/Plan Active Problems Chronic ulcer of right leg (Chronic) Diabetes mellitus with skin ulcer (Chronic) Former smoker (Chronic) History of right knee joint replacement (Chronic) Edema leg (Chronic) Assessment: 1. Nonhealing ulcer right inferior knee by tibial tubercle. 2. History of revision replacement right knee. 3. History of right TKA infection. 4. Former smoker. 5. Sural nerve injury right posterior leg. 6. 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 7. Nonhealing ulcer right posterior leg. 8. Mild skin graft compromise right inferior knee. Plan: Muscle flap is healing satisfactory. Skin graft shows good adherence and vascular ingrowth. About 90% take. Mild scattered areas of skin graft compromise noted. Can benefit from HBO therapy to improve the salvage of the skin graft. She has started the HBO treatments and has tolerated them thus far. We have started advanced skin substitute grafts to the right knee skin graft ulcer with Epifix placental connective tissue graft. Today was application #5 of Epifix. Able to place remaining Epifix to right posterior leg ulcer. Continue ROGER wrap for compression. She doesn't wear the knee brace anymore. Continue Doxycycline and Voriconazole. Prealbumin from 11/30/19 was 24.7. Encourage nutritional supplementation with protein to help the healing process. She exhibits good range of motion with her right knee as she can bend it almost 75-80 degrees. She had recent labs on 03/15/20. Her Alkaline Phosphatase was 166. It was 172 in November,. She will followup with her PCP. Followup one week. 150xxx-152xx: [id number] Skin sub graft trnk/arm/leg
[2020-03-26 07:41] LABS: Bedside Glucose 240 mg/dL (70-110)
[2020-03-26 08:25] VITALS: BP 112/50; BP 148/75; PULSE 76; PULSE 92; RESP 16; RESP 17; TEMP 36.4
[2020-03-26 09:50] LABS: Bedside Glucose 140 mg/dL (70-110)
--- NOTE | 2020-03-26 13:46 | PCM.HBO.PN ---
History of Present Illness Date of Service: 03/26/20 Presenting Chief Complaint: Nonhealing ulcer right inferior knee s/p polyethylene exchange and gastrocnemius muscle flap reconstruction on 11/29/19 with compromise to the overlying skin graft and nonhealing ulcer right posterior leg. RAJESH CARRENO is a 59 year old currently undergoing hyperbaric oxygen therapy for a failing/compromised right medial gastrocnemius muscular rotation flap. Progress: This represents the 36th hyperbaric oxygen therapy session of an anticipated 50 such sessions. Tolerance of hyperbaric oxygen therapy: Hyperbaric oxygen therapy was administered as per the facility's protocol. Hyperbaric oxygen therapy was administered for 90 minutes at 2 tahir with no air breaks. Patient tolerated hyperbaric oxygen therapy well, without complaints or complications. Upon emergence from the hyperbaric chamber, the patient's vital signs remained stable. The patient was discharged in good condition. Pre- and post- blood glucose measurements were documented elsewhere. 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, sequela (Chronic) Nonhealing ulcer of right lower extremity with fat layer exposed (Chronic) Nonhealing ulcer right inferior knee by tibial tubercle History of DVT (deep vein thrombosis) (Chronic) Septic arthritis of knee, right (Chronic) Hx of total knee replacement (Chronic) right Restless leg (Chronic) RENNY (obstructive sleep apnea) (Chronic) Hypothyroidism (Chronic) Diverticulosis of colon without diverticulitis (Chronic) Depression (Chronic) Postphlebitic syndrome with inflammation (Chronic) Lumbar disc disease (Chronic) History of Graves' disease (Chronic) Diabetes mellitus (Chronic) Renal insufficiency (Chronic) Presence of IVC filter (Chronic) Obesity (Chronic) Edema leg (Chronic) Leg swelling (Chronic) DVT of lower extremity (deep venous thrombosis) (Chronic) Allergies/Adverse Reactions: Allergies hydrocodone bitartrate [From Lortab] Allergy (Intermediate, Verified 09/06/19 07:31) Other lips swell, ataxia etodolac Allergy (Verified 09/06/19 07:31) Unknown misoprostol Allergy (Verified 09/06/19 07:31) Unknown celecoxib Adverse Reaction (Intermediate, Verified 09/06/19 07:31) Other heart palpitations diclofenac [Diclofenac] Adverse Reaction (Mild, Verified 09/06/19 07:31) Abd cramps/diarrhea ketorolac tromethamine [From Toradol] Adverse Reaction (Mild, Verified 09/06/19 07:31) Other balance issues metoclopramide HCl [From Reglan] Adverse Reaction (Mild, Verified 09/06/19 07:31) Other worsens restless leg atorvastatin [From Lipitor] Adverse Reaction (Verified 09/06/19 07:31) Other FACE SPASMS clindamycin Adverse Reaction (Verified 09/06/19 07:31) Mucosal lesions Home Medications: Ambulatory Orders Medication Instructions Recorded Levothyroxine [Synthroid] 175 mcg PO DAILY 09/01/13 Omeprazole [Prilosec] 20 mg PO DAILY 12/13/16 Cholecalciferol (Vitamin D3) 5,000 unit PO DAILY@1200 01/25/17 [Vitamin D3] [place]-3 Fatty Acids/Fish Oil [Fish 2,000 mg PO LUNCH 03/21/18 Oil 1,000 mg Capsule] Gabapentin 800 mg PO BID 08/01/18 Gabapentin [Neurontin] 1,200 mg PO QHS 08/01/18 Lisinopril [Zestril] 10 mg PO LUNCH 08/01/18 Pramipexole Di-HCl [Pramipexole 1 mg PO LUNCH 08/01/18 Dihydrochloride] Pramipexole Di-HCl [Pramipexole 1.5 tab PO QHS 08/01/18 Dihydrochloride] Venlafaxine HCl [Effexor Xr] 1 tab PO DAILY 08/01/18 Venlafaxine HCl [Venlafaxine HCl 1 tab PO DAILY 08/01/18 ER] Aspirin [Aspir-Low] 81 mg PO LUNCH 05/02/19 Famotidine [Pepcid] 40 mg PO QHS 05/02/19 Ferrous Sulfate 325 mg PO DAILY 08/30/19 Ascorbic Acid [Vitamin C] 500 mg PO LUNCH 11/28/19 Doxycycline 100 mg PO BID 11/28/19 Montelukast [Singulair] 10 mg PO QHS 11/28/19 Pramipexole Di-HCl [Mirapex] 0.5 mg PO DAILY 11/28/19 Voriconazole 200 mg PO BID 11/28/19 Acetaminophen [Tylenol] 1,000 mg PO Q8 tab 12/04/19 Senna/Docusate Sodium [Senokot-S] 2 tab PO BID tab 12/04/19 Maternal Family History: Heart Disease, Hypertension Paternal Family History: Heart Disease, Hypertension Sibling Family History: Cancer, Diabetes, Hypertension, - Smoking Status: Former smoker Physical Exam Vital Signs Temp Pulse Resp BP 97.6 F L 92 17 148/75 H 03/26/20 08:25 03/26/20 08:25 03/26/20 08:25 03/26/20 08:25 General: Alert, Oriented x3, Cooperative, No apparent distress, Well developed, Well nourished HEENT: Atraumatic, PERRLA, EOMI, Normocephalic Lungs: Normal air movement Psych/Mental Status: Normal Affect, Appropriate, Alert and oriented to time, place, person, mood and affect Assessment/Plan Active Problems Chronic ulcer of right leg (Chronic) Diabetes mellitus with skin ulcer (Chronic) Former smoker (Chronic) History of right knee joint replacement (Chronic) Edema leg (Chronic) The patient appears to be tolerating hyperbaric oxygen therapy well, which will be continued as per the patient's medical plan. Treatment Course Number Number of HBO Treatments 50 Ordered Treatment Course Number 1 Treatment # 36 Chamber # 1 Chamber Type Monoplace Diabetes - Detail Diabetes Diabetes Type II Left Extremity Other - Detail Compromised/Failed Flap/Graft Yes: right knee (specify site in comment) Treatment Plan PATRICIA (Atmospheric Absolute) 2 Number of Minutes 90 Number of Air Breaks 0
[2020-03-27 08:01] LABS: Bedside Glucose 211 mg/dL (70-110)
[2020-03-27 08:22] VITALS: BP 148/84; BP 91/63; PULSE 87; PULSE 92; RESP 16; TEMP 35.6; TEMP 36.2
--- NOTE | 2020-03-27 09:37 | PCM.HBO.PN ---
History of Present Illness Date of Service: 03/27/20 Presenting Chief Complaint: Nonhealing ulcer right inferior knee s/p polyethylene exchange and gastrocnemius muscle flap reconstruction on 11/29/19 with compromise to the overlying skin graft and nonhealing ulcer right posterior leg. RAJESH CARRENO is a 59 year old currently undergoing hyperbaric oxygen therapy for a failing/compromised right medial gastrocnemius muscular rotation flap. Progress: This represents the 37th hyperbaric oxygen therapy session of an anticipated 50 such sessions. Tolerance of hyperbaric oxygen therapy: Hyperbaric oxygen therapy was administered as per the facility's protocol. Hyperbaric oxygen therapy was administered for 90 minutes at 2 tahir with no air breaks. Patient tolerated hyperbaric oxygen therapy well, without complaints or complications. Upon emergence from the hyperbaric chamber, the patient's vital signs remained stable. The patient was discharged in good condition. Pre- and post- blood glucose measurements were documented elsewhere. 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, sequela (Chronic) Nonhealing ulcer of right lower extremity with fat layer exposed (Chronic) Nonhealing ulcer right inferior knee by tibial tubercle History of DVT (deep vein thrombosis) (Chronic) Septic arthritis of knee, right (Chronic) Hx of total knee replacement (Chronic) right Restless leg (Chronic) RENNY (obstructive sleep apnea) (Chronic) Hypothyroidism (Chronic) Diverticulosis of colon without diverticulitis (Chronic) Depression (Chronic) Postphlebitic syndrome with inflammation (Chronic) Lumbar disc disease (Chronic) History of Graves' disease (Chronic) Diabetes mellitus (Chronic) Renal insufficiency (Chronic) Presence of IVC filter (Chronic) Obesity (Chronic) Edema leg (Chronic) Leg swelling (Chronic) DVT of lower extremity (deep venous thrombosis) (Chronic) Allergies/Adverse Reactions: Allergies hydrocodone bitartrate [From Lortab] Allergy (Intermediate, Verified 09/06/19 07:31) Other lips swell, ataxia etodolac Allergy (Verified 09/06/19 07:31) Unknown misoprostol Allergy (Verified 09/06/19 07:31) Unknown celecoxib Adverse Reaction (Intermediate, Verified 09/06/19 07:31) Other heart palpitations diclofenac [Diclofenac] Adverse Reaction (Mild, Verified 09/06/19 07:31) Abd cramps/diarrhea ketorolac tromethamine [From Toradol] Adverse Reaction (Mild, Verified 09/06/19 07:31) Other balance issues metoclopramide HCl [From Reglan] Adverse Reaction (Mild, Verified 09/06/19 07:31) Other worsens restless leg atorvastatin [From Lipitor] Adverse Reaction (Verified 09/06/19 07:31) Other FACE SPASMS clindamycin Adverse Reaction (Verified 09/06/19 07:31) Mucosal lesions Home Medications: Ambulatory Orders Medication Instructions Recorded Levothyroxine [Synthroid] 175 mcg PO DAILY 09/01/13 Omeprazole [Prilosec] 20 mg PO DAILY 12/13/16 Cholecalciferol (Vitamin D3) 5,000 unit PO DAILY@1200 01/25/17 [Vitamin D3] [place]-3 Fatty Acids/Fish Oil [Fish 2,000 mg PO LUNCH 03/21/18 Oil 1,000 mg Capsule] Gabapentin 800 mg PO BID 08/01/18 Gabapentin [Neurontin] 1,200 mg PO QHS 08/01/18 Lisinopril [Zestril] 10 mg PO LUNCH 08/01/18 Pramipexole Di-HCl [Pramipexole 1 mg PO LUNCH 08/01/18 Dihydrochloride] Pramipexole Di-HCl [Pramipexole 1.5 tab PO QHS 08/01/18 Dihydrochloride] Venlafaxine HCl [Effexor Xr] 1 tab PO DAILY 08/01/18 Venlafaxine HCl [Venlafaxine HCl 1 tab PO DAILY 08/01/18 ER] Aspirin [Aspir-Low] 81 mg PO LUNCH 05/02/19 Famotidine [Pepcid] 40 mg PO QHS 05/02/19 Ferrous Sulfate 325 mg PO DAILY 08/30/19 Ascorbic Acid [Vitamin C] 500 mg PO LUNCH 11/28/19 Doxycycline 100 mg PO BID 11/28/19 Montelukast [Singulair] 10 mg PO QHS 11/28/19 Pramipexole Di-HCl [Mirapex] 0.5 mg PO DAILY 11/28/19 Voriconazole 200 mg PO BID 11/28/19 Acetaminophen [Tylenol] 1,000 mg PO Q8 tab 12/04/19 Senna/Docusate Sodium [Senokot-S] 2 tab PO BID tab 12/04/19 Maternal Family History: Heart Disease, Hypertension Paternal Family History: Heart Disease, Hypertension Sibling Family History: Cancer, Diabetes, Hypertension, - Smoking Status: Former smoker Physical Exam Vital Signs Temp Pulse Resp BP 96.0 F L 92 16 148/84 H 03/27/20 08:22 03/27/20 08:22 03/27/20 08:22 03/27/20 08:22 Assessment/Plan Active Problems Chronic ulcer of right leg (Chronic) Diabetes mellitus with skin ulcer (Chronic) Former smoker (Chronic) History of right knee joint replacement (Chronic) Edema leg (Chronic) The patient appears to be tolerating hyperbaric oxygen therapy well, which will be continued as per the patient's medical plan. Treatment Course Number Number of HBO Treatments 50 Ordered Treatment Course Number 1 Treatment # 36 Chamber # 2 Chamber Type Monoplace Diabetes - Detail Diabetes Diabetes Type II Left Extremity Other - Detail Compromised/Failed Flap/Graft Yes: right knee (specify site in comment) Treatment Plan PATRICIA (Atmospheric Absolute) 2 Number of Minutes 90 Number of Air Breaks 0
[2020-03-27 09:55] LABS: Bedside Glucose 157 mg/dL (70-110)
[2020-04-01 08:46] VITALS: BP 145/74; PULSE 97; RESP 20; TEMP 36.1; BMI 45.3
--- NOTE | 2020-04-01 13:16 | PN.PCM_ITS ---
(1) Chronic ulcer of right leg Status: Chronic Code(s): L97.919 - Non-pressure chronic ulcer of unspecified part of right lower leg with unspecified severity (2) Diabetes mellitus with skin ulcer Status: Chronic Code(s): E11.622 - Type 2 diabetes mellitus with other skin ulcer; L98.499 - Non-pressure chronic ulcer of skin of other sites with unspecified severity (3) Former smoker Status: Chronic Code(s): Z87.891 - Personal history of nicotine dependence (4) History of right knee joint replacement Status: Chronic Code(s): Z96.651 - Presence of right artificial knee joint (5) Edema leg Status: Chronic Code(s): R60.0 - Localized edema Type of Wound Date of Service: 04/01/20 Chief Complaint: Nonhealing ulcer right inferior knee s/p polyethylene exchange and gastrocnemius muscle flap reconstruction on 11/29/19 with compromise to the overlying skin graft and nonhealing ulcer right posterior leg. History of Wound: Surgery 11/29/19 - Irrigation debridement with polyethylene exchange right total knee and excision sinus tract right knee by Dr Barton. 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 Lazaro. Operative culture - negative. Currently on Doxycycline and Voriconazole. Prealbumin on 11/30/19 was 24.7. Encourage nutritional supplementation with protein to help the healing process. Today she denies fever. Her appetite is good. She is ambulating ok. She doesn't need the knee brace and occasionally will use the walker. She has burning nerve pain and tingling in the area of the sural nerve distribution. She is noticing improvement with the Neurontin. She has started HBO treatments for compromise to the skin graft and tolerated the treatments but has stopped them because it became too much for her to do daily. We have started advanced skin substitute grafts to her right knee. Thus far we have placed 5 applications of Epifix placental connective tissue graft. She had recent labs on 03/15/20. Her Alkaline Phosphatase was 166. It was 172 in November,. She will followup with her PCP. Progress of Wound: Patient tolerated HBOT well for her compromised skin graft but has stopped the treatments. Muscle flap is healed. Skin graft/ulcer on right knee has improved and is almost healed. Nonhealing ulcer right posterior leg is improving. - Physical Exam Vital Signs Temp Pulse Resp BP 96.9 F L 97 20 H 145/74 H 04/01/20 08:46 04/01/20 08:46 04/01/20 08:46 04/01/20 08:46 General: Alert, Oriented x3, Cooperative HEENT: Atraumatic Oral: Moist Mucosa Lungs: Normal air movement Cardiovascular: Regular rate Abdomen: Obese Extremities: Capillary Refill Less than 3 Seconds Skin: Ulcer/ Wound - Right knee ulcer cluster is improving with the use of Epifix. Right posterior ulcer is also smaller in size. Wound Measurements and Assessment WC - Nurse 1 - General Ulcer Measurement Start: 03/05/20 08:56 Freq: Status: Active Protocol: Activity Type Activity Date Activity User E-Sign Co-Sign Detail Recorded Client Recorded Date Recorded By Document 04/01/20 08:46 DL [id number] 04/01/20 08:48 DL 04/01/20 08:46 Wound Center Nurse 1 [Ulcer Assessment] #4 R Post calf -Current Size (cm) - Length 0.1 -Current Size (cm) - Width 0.1 -Current Size (cm) - Depth 0.1 -Total Square Cm 0.01 -Photo Taken No -Exudate Amt None Present -Wound Margin Thickened -Granulation Amt Large (67-100%) -Granulation Quality Jeddo -Necrosis Amt Small (1-33%) -Necrotic Tissue Type Adherent Slough -Structure Exposed N/A -Texture (Aileen-wound Skin Appearance) Scarring -Moisture (Aileen-wound Skin Appearance Dry/Scaly ) -Color (Aileen-wound Skin Appearance) No Abnormality -Temperature (Aileen-wound Skin No Abnormality Appearance) (Pt Warm) -Tenderness on Palpation (Aileen-wound No Skin Appearance) -Ulcer Cleansing Wound Cleanser -Foul Odor after Cleansing No -Anesthetic Used 4% Lidocaine Solution 3-right knee graft site -Current Size (cm) - Length 0.1 -Current Size (cm) - Width 0.1 -Current Size (cm) - Depth 0.1 -Total Square Cm 0.01 -Photo Taken No -Exudate Amt None Present -Wound Margin Thickened -Granulation Amt Small (1-33%) -Granulation Quality Jeddo -Necrosis Amt Small (1-33%) -Necrotic Tissue Type Adherent Slough -Structure Exposed N/A -Texture (Aileen-wound Skin Appearance) Scarring -Moisture (Aileen-wound Skin Appearance Dry/Scaly ) -Color (Aileen-wound Skin Appearance) No Abnormality -Temperature (Aileen-wound Skin No Abnormality Appearance) (Pt Warm) -Tenderness on Palpation (Aileen-wound No Skin Appearance) -Ulcer Cleansing Wound Cleanser -Foul Odor after Cleansing No -Anesthetic Used 4% Lidocaine Solution WC - Nurse 2 - General Ulcer CM Notes Start: 03/05/20 08:56 Freq: Status: Active Protocol: Activity Type Activity Date Activity User E-Sign Co-Sign Detail Recorded Client Recorded Date Recorded By Document 04/01/20 09:08 ALETA [id number] 04/01/20 09:22 ALETA 04/01/20 09:08 Wound Center Nurse 2 [Procedure/Treatment] #4 R Post calf -Time 09:16 -Correct Patient Yes -Correct Side, Site, Position Yes -Correct Procedure Yes -Procedure Performed Yes -Type of Procedure Debridement -Clinical Debridement Subcutaneous -Tissue Removed Subcutaneous -Post Debridement (cm) - Length 1.2 -Post Debridement (cm) - Width 0.3 -Post Debridement (cm) - Depth 0.2 -Total Square (Post) (cm) 0.36 -Area of Debridement (cm) - Length 1.2 -Area of Debridement (cm) - Width 0.3 -Total Square (Area) (cm) 0.36 -Tunneling No -Undermining/Tunneling No -Circular Undermining No -Wound/Ulcer Outcome Not Healed -Ulcer Cleansing Rinsed/ Irrigated with Saline -Foul Odor after Cleansing No -Bioengineered Tissue Yes -Type of Bioengineered Tissue Epifix -Expiration Date 12/04/24 -Product Lot Number [id number] -Percent Used 100 -Lot number of Saline Used [id number] -Bleeding Controlled with Pressure -Offloading No -Debridement - Subq, 1st 20sq cm Yes -Epifix (per sq cm) 0 3-right knee graft site -Time 09:18 -Correct Patient Yes -Correct Side, Site, Position Yes -Correct Procedure Yes -Procedure Performed Yes -Type of Procedure Debridement -Clinical Debridement Subcutaneous -Tissue Removed Subcutaneous -Post Debridement (cm) - Length 5 -Post Debridement (cm) - Width 0.5 -Post Debridement (cm) - Depth 0.1 -Total Square (Post) (cm) 2.5 -Area of Debridement (cm) - Length 5 -Area of Debridement (cm) - Width 0.5 -Total Square (Area) (cm) 2.5 -Tunneling No -Undermining/Tunneling No -Circular Undermining No -Wound/Ulcer Outcome Not Healed -Ulcer Cleansing Rinsed/ Irrigated with Saline -Foul Odor after Cleansing No -Bioengineered Tissue Yes -Type of Bioengineered Tissue Epifix 18mm Disc -Expiration Date 12/04/24 -Product Lot Number [id number] -Percent Used 100 -Lot number of Saline Used [id number] -Bleeding Controlled with Pressure -Offloading No -Treatment Response Procedure Tolerated Well -Debridement - Subq, 1st 20sq cm No -Apply Skin Sub - 1st 25 sq cm - Legs 1 -Epifix 18mm Disc 3 Query Text:18mm = 3 [See Physician Procedure note for Specifics] Pain Scale: 0-10 Numeric [Pain] -Is Patient Pain Free? Yes - Nurse 3 - General Ulcer D/C NN Start: 03/05/20 08:56 Freq: Status: Active Protocol: Activity Type Activity Date Activity User E-Sign Co-Sign Detail Recorded Client Recorded Date Recorded By Document 04/01/20 09:40 [facility] [id number] 04/01/20 09:41 [facility] 04/01/20 09:40 Wound Care Nurse 3 [Wound Dressing] #4 R Post calf -Primary Dressing Applied Other -Other Dressing epifix per yvon financial services director -Primary Dressing Covered/Secured Other with -Other Covering abd secured w/ roger 3-right knee graft site -Primary Dressing Applied Other -Other Dressing epifix -Primary Dressing Covered/Secured Other with -Other Covering abd secured w/ roger [Compression Applied] Right -Compression Wrap Roger Wrap Pain Scale: 0-10 Numeric [Pain] -Is Patient Pain Free? Yes - Visit Discharge [Visit Discharge Information] -Discharge Condition Stable -Ambulatory Status Ambulatory -Transportation Private Auto Musculoskeletal: Tenderness Neurological: Cranial nerves II-XII grossly intact Psych/Mental Status: Appropriate Debridement Note Post-Debridement Measurements/Treatment - Nurse 2 - General Ulcer CM Notes Start: 03/05/20 08:56 Freq: Status: Active Protocol: Activity Type Activity Date Activity User E-Sign Co-Sign Detail Recorded Client Recorded Date Recorded By Document 03/11/20 10:43 [id number] 03/11/20 11:01 Document 03/18/20 10:39 [id number] 03/18/20 10:47 Document 03/25/20 10:47 [id number] 03/25/20 10:54 Document 04/01/20 09:08 JF [id number] 04/01/20 09:22 JF 03/11/20 03/18/20 03/25/20 10:43 10:39 10:47 Wound Center Nurse 2 #4 R Post calf -Time 10:45 10:40 10:51 -Correct Patient Yes Yes Yes -Correct Side, Site, Position Yes Yes Yes -Correct Procedure Yes Yes Yes -Procedure Performed Yes Yes Yes -Type of Procedure Debridement Debridement Debridement -Clinical Debridement Subcutaneous Subcutaneous Subcutaneous -Tissue Removed Subcutaneous Subcutaneous Subcutaneous -Post Debridement (cm) - Length 1.8 0.7 1.6 -Post Debridement (cm) - Width 0.7 0.4 1 -Post Debridement (cm) - Depth 0.4 0.2 0.3 -Total Square (Post) (cm) 1.26 0.28 1.6 -Area of Debridement (cm) - Length 1.8 0.7 1.6 -Area of Debridement (cm) - Width 0.7 0.4 1 -Total Square (Area) (cm) 1.26 0.28 1.6 -Tunneling No No No -Undermining/Tunneling No No No -Circular Undermining No No No -Wound/Ulcer Outcome Not Healed Not Healed Not Healed -Ulcer Cleansing Rinsed/ Rinsed/ Rinsed/ Irrigated with Irrigated with Irrigated with Saline Saline Saline -Foul Odor after Cleansing No No No -Bioengineered Tissue No No No -Type of Bioengineered Tissue -Expiration Date -Product Lot Number -Percent Used -Lot number of Saline Used -Bleeding Controlled with Pressure Pressure Pressure -Offloading No No No -Treatment Response Procedure Procedure Procedure Tolerated Well Tolerated Well Tolerated Well -Debridement - Subq, 1st 20sq cm Yes Yes Yes -Epifix (per sq cm) 3-right knee graft site -Time 10:45 10:40 10:48 -Correct Patient Yes Yes Yes -Correct Side, Site, Position Yes Yes Yes -Correct Procedure Yes Yes Yes -Procedure Performed Yes Yes Yes -Type of Procedure Debridement Debridement Debridement -Clinical Debridement Subcutaneous Subcutaneous Subcutaneous -Tissue Removed Subcutaneous Subcutaneous Subcutaneous -Post Debridement (cm) - Length 8.5 9 7.7 -Post Debridement (cm) - Width 3.6 2.8 3 -Post Debridement (cm) - Depth 0.2 0.1 0.2 -Total Square (Post) (cm) 30.60 25.2 23.1 -Area of Debridement (cm) - Length 8.5 9 7.7 -Area of Debridement (cm) - Width 3.6 2.8 3 -Total Square (Area) (cm) 30.60 25.2 23.1 -Tunneling No No No -Undermining/Tunneling No No No -Circular Undermining No No No -Wound/Ulcer Outcome Not Healed Not Healed Not Healed -Ulcer Cleansing Rinsed/ Rinsed/ Rinsed/ Irrigated with Irrigated with Irrigated with Saline Saline Saline -Foul Odor after Cleansing No No No -Bioengineered Tissue Yes Yes Yes -Type of Bioengineered Tissue Epifix Epifix Epifix -Expiration Date 10/03/24 10/03/24 10/03/24 -Product Lot Number [id number] -Percent Used 100 100 100 -Lot number of Saline Used -Bleeding Controlled with Pressure Pressure Pressure -Other saline [id number] SALINE [id number] saline [id number] -Offloading No No No -Treatment Response Procedure Procedure Procedure Tolerated Well Tolerated Well Tolerated Well -Debridement - Subq, 1st 20sq cm No No No -Debridement, SubQ, ea addt'l 20sq cm 1 or part thereof -Apply Skin Sub - 1st 25 sq cm - Legs 1 1 -Apply Skin Sub - each addt'l 25 sq cm 1 - Legs -Epifix (per sq cm) 4 4 4 -Epifix 18mm Disc Query Text:18mm = 3 Pain Scale: 0-10 Numeric Is Patient Pain Free? Yes Yes Yes 04/01/20 09:08 Wound Center Nurse 2 #4 R Post calf -Time 09:16 -Correct Patient Yes -Correct Side, Site, Position Yes -Correct Procedure Yes -Procedure Performed Yes -Type of Procedure Debridement -Clinical Debridement Subcutaneous -Tissue Removed Subcutaneous -Post Debridement (cm) - Length 1.2 -Post Debridement (cm) - Width 0.3 -Post Debridement (cm) - Depth 0.2 -Total Square (Post) (cm) 0.36 -Area of Debridement (cm) - Length 1.2 -Area of Debridement (cm) - Width 0.3 -Total Square (Area) (cm) 0.36 -Tunneling No -Undermining/Tunneling No -Circular Undermining No -Wound/Ulcer Outcome Not Healed -Ulcer Cleansing Rinsed/ Irrigated with Saline -Foul Odor after Cleansing No -Bioengineered Tissue Yes -Type of Bioengineered Tissue Epifix -Expiration Date 12/04/24 -Product Lot Number [id number] -Percent Used 100 -Lot number of Saline Used [id number] -Bleeding Controlled with Pressure -Offloading No -Treatment Response -Debridement - Subq, 1st 20sq cm Yes -Epifix (per sq cm) 0 3-right knee graft site -Time 09:18 -Correct Patient Yes -Correct Side, Site, Position Yes -Correct Procedure Yes -Procedure Performed Yes -Type of Procedure Debridement -Clinical Debridement Subcutaneous -Tissue Removed Subcutaneous -Post Debridement (cm) - Length 5 -Post Debridement (cm) - Width 0.5 -Post Debridement (cm) - Depth 0.1 -Total Square (Post) (cm) 2.5 -Area of Debridement (cm) - Length 5 -Area of Debridement (cm) - Width 0.5 -Total Square (Area) (cm) 2.5 -Tunneling No -Undermining/Tunneling No -Circular Undermining No -Wound/Ulcer Outcome Not Healed -Ulcer Cleansing Rinsed/ Irrigated with Saline -Foul Odor after Cleansing No -Bioengineered Tissue Yes -Type of Bioengineered Tissue Epifix 18mm Disc -Expiration Date 12/04/24 -Product Lot Number [id number] -Percent Used 100 -Lot number of Saline Used [id number] -Bleeding Controlled with Pressure -Other -Offloading No -Treatment Response Procedure Tolerated Well -Debridement - Subq, 1st 20sq cm No -Debridement, SubQ, ea addt'l 20sq cm or part thereof -Apply Skin Sub - 1st 25 sq cm - Legs 1 -Apply Skin Sub - each addt'l 25 sq cm - Legs -Epifix (per sq cm) -Epifix 18mm Disc 3 Query Text:18mm = 3 Pain Scale: 0-10 Numeric Is Patient Pain Free? Yes WC - Nurse 3 - General Ulcer D/C NN Start: 03/05/20 08:56 Freq: Status: Active Protocol: Activity Type Activity Date Activity User E-Sign Co-Sign Detail Recorded Client Recorded Date Recorded By Document 03/11/20 11:10 DL [id number] 03/11/20 11:11 DL Document 03/18/20 10:48 [id number] 03/18/20 10:49 Document 03/25/20 11:09 DL [id number] 03/25/20 11:10 DL Document 04/01/20 09:40 [facility] [id number] 04/01/20 09:41 [facility] 03/11/20 03/18/20 03/25/20 11:10 10:48 11:09 Wound Care Nurse 3 #4 R Post calf -Ulcer Cleansing Rinsed/ Rinsed/ Rinsed/ Irrigated with Irrigated with Irrigated with Saline Saline Saline -Foul Odor after Cleansing No No No -Primary Dressing Applied Aquacel AG 2x2 -Other Dressing -Primary Dressing Covered/Secured with Dry Gauze & Dry Gauze & Dry Gauze, Roll Gauze Roll Gauze, Secured with Secured with Tape Tape -Other Covering -Aquacel AG 2x2 1 3-right knee graft site -Ulcer Cleansing Rinsed/ Rinsed/ Rinsed/ Irrigated with Irrigated with Irrigated with Saline Saline Saline -Foul Odor after Cleansing No No No -Primary Dressing Applied -Other Dressing Epifix -Primary Dressing Covered/Secured with Dry Gauze & Dry Gauze & Dry Gauze, Roll Gauze Roll Gauze, Secured with Secured with Tape Tape -Other Covering roger Right -Compression Wrap Roger Wrap Treatment Response Procedure Tolerated Well Pain Scale: 0-10 Numeric Is Patient Pain Free? Yes Yes WC - Visit Discharge Discharge Condition Stable Stable Stable Ambulatory Status Ambulatory Ambulatory Ambulatory Transportation Private Auto Private Auto Private Auto Medication Reconcilliation completed & Yes provided to patient/care provider Clinical Summary of Care Provided Yes 04/01/20 09:40 Wound Care Nurse 3 #4 R Post calf -Ulcer Cleansing -Foul Odor after Cleansing -Primary Dressing Applied Other -Other Dressing epifix per yvon financial services director -Primary Dressing Covered/Secured with Other -Other Covering abd secured w/ roger -Aquacel AG 2x2 3-right knee graft site -Ulcer Cleansing -Foul Odor after Cleansing -Primary Dressing Applied Other -Other Dressing epifix -Primary Dressing Covered/Secured with Other -Other Covering abd secured w/ roger Right -Compression Wrap Roger Wrap Treatment Response Pain Scale: 0-10 Numeric Is Patient Pain Free? Yes WC - Visit Discharge Discharge Condition Stable Ambulatory Status Ambulatory Transportation Private Auto Medication Reconcilliation completed & provided to patient/care provider Clinical Summary of Care Provided Wound debrided: knee cluster uclers Laterality: Right Type of Debridement: Excisional debridement Anesthesia Used: 5% Lidocaine Gel Depth: Down to and including healthy tissue, in the subcutaneous layer Percentage of wound debrided: 100 Instrument Used: 3mm curette Tissue Removed: Subcutaneous tissue and slough Severity: Limited To Skin Breakdown Amount of bleeding with debridement: Mild Bleeding Controlled with: Pressure Patient tolerated procedure well - Additional Wound Wound debrided: Posterior leg/calf ulcer Laterality: Right Type of Debridement: Excisional debridement Anesthesia Used: 5% Lidocaine Gel Depth: Down to and including healthy tissue, in the subcutaneous layer Percentage of wound debrided: 100 Instrument Used: 3mm curette Tissue Removed: Subcutaneous tissue and slough Severity: Fat Layer Exposed Amount of bleeding with debridement: Mild Bleeding Controlled with: Pressure Patient tolerated procedure: Patient tolerated procedure well Assessment/Plan Active Problems Chronic ulcer of right leg (Chronic) Diabetes mellitus with skin ulcer (Chronic) Former smoker (Chronic) History of right knee joint replacement (Chronic) Edema leg (Chronic) Assessment: 1. Nonhealing ulcer right inferior knee by tibial tubercle. 2. History of revision replacement right knee. 3. History of right TKA infection. 4. Former smoker. 5. Sural nerve injury right posterior leg. 6. 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 7. Nonhealing ulcer right posterior leg. 8. Mild skin graft compromise right inferior knee. Plan: Muscle flap is healing satisfactory. Skin graft shows good adherence and vascular ingrowth. About 90% take. Mild scattered areas of skin graft compromise noted. She started the HBO treatments and has tolerated them thus far, but has decided to stop them because it was becoming too much to do daily. We have started advanced skin substitute grafts to the right knee skin graft ulcer with Epifix placental connective tissue graft. Today was application #6 of Epifix. Able to place remaining Epifix to right posterior leg ulcer. Continue ROGER wrap for compression. She doesn't wear the knee brace anymore. Continue Doxycycline and Voriconazole. Prealbumin from 11/30/19 was 24.7. Encourage nutritional supplementation with protein to help the healing process. She exhibits good range of motion with her right knee as she can bend it almost 75-80 degrees. She had recent labs on 03/15/20. Her Alkaline Phosphatase was 166. It was 172 in November,. She will followup with her PCP. Followup one week. 111xxx-113xx: 37008 [place] subq tissue 20 sq cm/< - right posterior leg ulcer 150xxx-152xx: 84122 Skin sub graft trnk/arm/leg - right anterior knee ulcer
== END 2020-04-04 23:59 ==
LOC: WC 08:45
PROVIDERS: PCP Family Medicine; Referring Provider Surgery; Visit Provider Surgery
DX: T86.828 Other complications of skin graft (allograft) (autograft) (principal); E11.622 Type 2 diabetes mellitus with other skin ulcer; T84.53XS Infection and inflammatory reaction due to internal right knee prosthesis, sequela; S84.21XA Injury of cutaneous sensory nerve at lower leg level, right leg, initial encounter; L97.912 Non-pressure chronic ulcer of unspecified part of right lower leg with fat layer exposed; L97.212 Non-pressure chronic ulcer of right calf with fat layer exposed; Z87.891 Personal history of nicotine dependence; Z96.651 Presence of right artificial knee joint
CPT/HCPCS: 11042; 11045; 15271; 15272; 82962; 99183; Q4186; G0277

== ENCOUNTER 2020-04-29 08:15 | Outpatient (RCR) | payer BC, SELFPAY ==
[2020-04-05 00:21] VITALS: BP 145/74; PULSE 97; RESP 20; TEMP 36.1
[2020-04-08 08:32] VITALS: BP 154/74; PULSE 85; TEMP 36.5; BMI 45.3
--- NOTE | 2020-04-08 11:44 | PCM.WC.PN ---
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 Status: Chronic Code(s): L97.912 - Non-pressure chronic ulcer of unspecified part of right lower leg with fat layer exposed Comment: Nonhealing ulcer right inferior knee by tibial tubercle (2) Chronic ulcer of right leg Status: Chronic Code(s): L97.919 - Non-pressure chronic ulcer of unspecified part of right lower leg with unspecified severity (3) Diabetes mellitus with skin ulcer Status: Chronic Code(s): E11.622 - Type 2 diabetes mellitus with other skin ulcer; L98.499 - Non-pressure chronic ulcer of skin of other sites with unspecified severity (4) Former smoker Status: Chronic Code(s): Z87.891 - Personal history of nicotine dependence (5) History of right knee joint replacement Status: Chronic Code(s): Z96.651 - Presence of right artificial knee joint Type of Wound Date of Service: 04/08/20 Chief Complaint: Nonhealing ulcer right inferior knee s/p polyethylene exchange and gastrocnemius muscle flap reconstruction on 11/29/19 with compromise to the overlying skin graft and nonhealing ulcer right posterior leg. History of Wound: Surgery 11/29/19 - Irrigation debridement with polyethylene exchange right total knee and excision sinus tract right knee by Dr Barton. 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 Lazaro. Operative culture - negative. Currently on Doxycycline and Voriconazole. Prealbumin on 11/30/19 was 24.7. Encourage nutritional supplementation with protein to help the healing process. Today she denies fever. Her appetite is good. She is ambulating ok. She doesn't need the knee brace and occasionally will use the walker. She has burning nerve pain and tingling in the area of the sural nerve distribution. She is noticing improvement with the Neurontin. She has started HBO treatments for compromise to the skin graft and is tolerating the treatments. We have started advanced skin substitute grafts to her right knee. Thus far we have placed 5 applications of Epifix placental connective tissue graft. Wound care - Stop Epifix, start Collagen hydrogel daily to both the right knee and posterior leg ulcers. She had recent labs on 03/15/20. Her Alkaline Phosphatase was 166. It was 172 in November,. She will followup with her PCP. Progress of Wound: Muscle flap is healed. Skin graft/ulcer on right knee is improved. Nonhealing ulcer right posterior leg is improving. - Physical Exam Vital Signs Temp Pulse Resp BP 97.7 F L 85 20 H 154/74 H 04/08/20 08:32 04/08/20 08:32 04/05/20 00:21 04/08/20 08:32 General: Alert, Oriented x3, Cooperative HEENT: Atraumatic Oral: Moist Mucosa Lungs: Normal air movement Cardiovascular: Regular rate Extremities: Capillary Refill Less than 3 Seconds Skin: Ulcer/ Wound - Right knee ulcer cluster is superficial. Right posterior leg ulcer is improved with less depth. Wound Measurements and Assessment WC - Nurse 1 - General Ulcer Measurement Start: 04/08/20 08:32 Freq: Status: Active Protocol: Activity Type Activity Date Activity User E-Sign Co-Sign Detail Recorded Client Recorded Date Recorded By Document 04/08/20 08:32 [email or web address] [id number] 04/08/20 08:39 KR 04/08/20 08:32 Wound Center Nurse 1 [Ulcer Assessment] #4 R Post calf -Current Size (cm) - Length 0.1 -Current Size (cm) - Width 0.1 -Current Size (cm) - Depth 0.1 -Total Square Cm 0.01 -Exudate Amt Small -Exudate Type Serosanguineous -Wound Margin Distinct, Outline Attached -Granulation Amt None Present (0 %) -Slough/Fibrin No -Necrosis Amt Large (67-100%) -Necrotic Tissue Type Adherent Slough -Texture (Aileen-wound Skin Appearance) Assessed, Scarring -Moisture (Aileen-wound Skin Appearance No Abnormality, ) Assessed -Color (Aileen-wound Skin Appearance) No Abnormality, Assessed -Temperature (Aileen-wound Skin No Abnormality Appearance) (Pt Warm) -Tenderness on Palpation (Aileen-wound No Skin Appearance) -Ulcer Cleansing soap and water -Foul Odor after Cleansing No -Anesthetic Used 4% Lidocaine Solution 3-right knee graft site -Current Size (cm) - Length 0.1 -Current Size (cm) - Width 0.1 -Current Size (cm) - Depth 0.1 -Total Square Cm 0.01 -Exudate Amt Small -Exudate Type Serosanguineous -Wound Margin Distinct, Outline Attached -Necrosis Amt Small (1-33%) -Necrotic Tissue Type Adherent Slough -Texture (Aileen-wound Skin Appearance) Assessed, Scarring -Moisture (Aileen-wound Skin Appearance No Abnormality, ) Assessed -Color (Aileen-wound Skin Appearance) No Abnormality, Assessed -Temperature (Aileen-wound Skin No Abnormality Appearance) (Pt Warm) -Tenderness on Palpation (Aileen-wound No Skin Appearance) -Ulcer Cleansing soap and water -Foul Odor after Cleansing No -Anesthetic Used 4% Lidocaine Solution WC - Nurse 2 - General Ulcer CM Notes Start: 04/08/20 08:32 Freq: Status: Active Protocol: Activity Type Activity Date Activity User E-Sign Co-Sign Detail Recorded Client Recorded Date Recorded By Document 04/08/20 09:01 [email or web address] [id number] 04/08/20 09:12 PL 04/08/20 09:01 Wound Center Nurse 2 [Procedure/Treatment] #4 R Post calf -Time 09:02 -Correct Patient Yes -Correct Side, Site, Position Yes -Correct Procedure Yes -Procedure Performed Yes -Type of Procedure Debridement -Clinical Debridement Subcutaneous -Tissue Removed Subcutaneous -Post Debridement (cm) - Length 1 -Post Debridement (cm) - Width 0.2 -Post Debridement (cm) - Depth 0.1 -Total Square (Post) (cm) 0.2 -Area of Debridement (cm) - Length 1 -Area of Debridement (cm) - Width 0.2 -Total Square (Area) (cm) 0.2 -Tunneling No -Undermining/Tunneling No -Bioengineered Tissue No -Debridement - Subq, 1st 20sq cm Yes 3-right knee graft site -Time 09:02 -Correct Patient Yes -Correct Side, Site, Position Yes -Correct Procedure Yes -Procedure Performed Yes -Type of Procedure Debridement -Clinical Debridement Subcutaneous -Tissue Removed Subcutaneous -Post Debridement (cm) - Length 1 -Post Debridement (cm) - Width 0.3 -Post Debridement (cm) - Depth 0.1 -Total Square (Post) (cm) 0.3 -Area of Debridement (cm) - Length 1 -Area of Debridement (cm) - Width 0.3 -Total Square (Area) (cm) 0.3 -Undermining/Tunneling No -Circular Undermining No -Wound/Ulcer Outcome Not Healed -Bioengineered Tissue No -Debridement - Subq, 1st 20sq cm No [See Physician Procedure note for Specifics] Pain Scale: 0-10 Numeric [Pain] -Is Patient Pain Free? Yes WC - Nurse 3 - General Ulcer D/C NN Start: 04/08/20 08:32 Freq: Status: Active Protocol: Activity Type Activity Date Activity User E-Sign Co-Sign Detail Recorded Client Recorded Date Recorded By Document 04/08/20 09:15 ME [id number] 04/08/20 09:16 ME 04/08/20 09:15 Wound Care Nurse 3 [Wound Dressing] #4 R Post calf -Other Dressing hydrogel -Primary Dressing Covered/Secured Dry Gauze, with Secured with Tape 3-right knee graft site -Other Dressing hydrogel -Primary Dressing Covered/Secured Dry Gauze, with Secured with Tape [Compression Applied] Right -Compression Wrap Roger Wrap WC - Visit Discharge [Visit Discharge Information] -Discharge Condition Stable -Ambulatory Status Ambulatory -Transportation Private Auto -Medication Reconcilliation completed No & provided to patient/care provider -Clinical Summary of Care Provided Yes Musculoskeletal: No Tenderness to Palpation of Joints or Extremities Neurological: Cranial nerves II-XII grossly intact Psych/Mental Status: Normal Affect, Appropriate Debridement Note Post-Debridement Measurements/Treatment WC - Nurse 2 - General Ulcer CM Notes Start: 04/08/20 08:32 Freq: Status: Active Protocol: Activity Type Activity Date Activity User E-Sign Co-Sign Detail Recorded Client Recorded Date Recorded By Document 04/08/20 09:01 PL [id number] 04/08/20 09:12 PL 04/08/20 09:01 Wound Center Nurse 2 #4 R Post calf -Time 09:02 -Correct Patient Yes -Correct Side, Site, Position Yes -Correct Procedure Yes -Procedure Performed Yes -Type of Procedure Debridement -Clinical Debridement Subcutaneous -Tissue Removed Subcutaneous -Post Debridement (cm) - Length 1 -Post Debridement (cm) - Width 0.2 -Post Debridement (cm) - Depth 0.1 -Total Square (Post) (cm) 0.2 -Area of Debridement (cm) - Length 1 -Area of Debridement (cm) - Width 0.2 -Total Square (Area) (cm) 0.2 -Tunneling No -Undermining/Tunneling No -Bioengineered Tissue No -Debridement - Subq, 1st 20sq cm Yes 3-right knee graft site -Time 09:02 -Correct Patient Yes -Correct Side, Site, Position Yes -Correct Procedure Yes -Procedure Performed Yes -Type of Procedure Debridement -Clinical Debridement Subcutaneous -Tissue Removed Subcutaneous -Post Debridement (cm) - Length 1 -Post Debridement (cm) - Width 0.3 -Post Debridement (cm) - Depth 0.1 -Total Square (Post) (cm) 0.3 -Area of Debridement (cm) - Length 1 -Area of Debridement (cm) - Width 0.3 -Total Square (Area) (cm) 0.3 -Undermining/Tunneling No -Circular Undermining No -Wound/Ulcer Outcome Not Healed -Bioengineered Tissue No -Debridement - Subq, 1st 20sq cm No Pain Scale: 0-10 Numeric Is Patient Pain Free? Yes - Nurse 3 - General Ulcer D/C NN Start: 04/08/20 08:32 Freq: Status: Active Protocol: Activity Type Activity Date Activity User E-Sign Co-Sign Detail Recorded Client Recorded Date Recorded By Document 04/08/20 09:15 ME [id number] 04/08/20 09:16 ME 04/08/20 09:15 Wound Care Nurse 3 #4 R Post calf -Other Dressing hydrogel -Primary Dressing Covered/Secured with Dry Gauze, Secured with Tape 3-right knee graft site -Other Dressing hydrogel -Primary Dressing Covered/Secured with Dry Gauze, Secured with Tape Right -Compression Wrap Roger Wrap WC - Visit Discharge Discharge Condition Stable Ambulatory Status Ambulatory Transportation Private Auto Medication Reconcilliation completed & No provided to patient/care provider Clinical Summary of Care Provided Yes Wound debrided: Knee cluster ulcers Laterality: Right Type of Debridement: Excisional debridement Anesthesia Used: 5% Lidocaine Gel Depth: Down to and including healthy tissue, in the subcutaneous layer Percentage of wound debrided: 100 Instrument Used: 3mm curette Tissue Removed: Subcutaneous tissue and slough Severity: Limited To Skin Breakdown Amount of bleeding with debridement: Mild Bleeding Controlled with: Pressure Patient tolerated procedure well - Additional Wound Wound debrided: Posterior leg ulcer Laterality: Right Type of Debridement: Excisional debridement Anesthesia Used: 5% Lidocaine Gel Depth: Down to and including healthy tissue, in the subcutaneous layer Percentage of wound debrided: 100 Instrument Used: 3mm curette Tissue Removed: Subcutaneous tissue and slough Severity: Limited To Skin Breakdown Amount of bleeding with debridement: Mild Bleeding Controlled with: Pressure Patient tolerated procedure: Patient tolerated procedure well Assessment/Plan Assessment: 1. Nonhealing ulcer right inferior knee by tibial tubercle. 2. History of revision replacement right knee. 3. History of right TKA infection. 4. Former smoker. 5. Sural nerve injury right posterior leg. 6. 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 7. Nonhealing ulcer right posterior leg. 8. Mild skin graft compromise right inferior knee. Plan: Muscle flap is healing satisfactory. Skin graft shows good adherence and vascular ingrowth. About 90% take. Mild scattered areas of skin graft compromise noted. She benefited from HBO therapy, which she has stopped. We have started advanced skin substitute grafts to the right knee skin graft ulcer with Epifix placental connective tissue graft. She has had 5 applications of Epifix. Will not apply today. Wound care - Collagen Hydrogel daily to both the knee and posterior leg ulcers. Cover with gauze. Continue ROGER wrap for compression. She doesn't wear the knee brace anymore. Continue Doxycycline and Voriconazole. Prealbumin from 11/30/19 was 24.7. Encourage nutritional supplementation with protein to help the healing process. She exhibits good range of motion with her right knee as she can bend it almost 75-80 degrees. She had recent labs on 03/15/20. Her Alkaline Phosphatase was 166. It was 172 in November,. She will followup with her PCP. Followup one week. [id number]: [id number] [place] subq tissue 20 sq cm/<
[2020-04-15 08:12] VITALS: BP 129/47; PULSE 82; RESP 16; TEMP 35.9; BMI 45.3
--- NOTE | 2020-04-15 13:15 | PN.PCM_ITS ---
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 Status: Chronic Code(s): L97.912 - Non-pressure chronic ulcer of unspecified part of right lower leg with fat layer exposed Comment: Nonhealing ulcer right inferior knee by tibial tubercle (2) Chronic ulcer of right leg Status: Chronic Code(s): L97.919 - Non-pressure chronic ulcer of unspecified part of right lower leg with unspecified severity (3) Diabetes mellitus with skin ulcer Status: Chronic Code(s): E11.622 - Type 2 diabetes mellitus with other skin ulcer; L98.499 - Non-pressure chronic ulcer of skin of other sites with unspecified severity (4) Former smoker Status: Chronic Code(s): Z87.891 - Personal history of nicotine dependence (5) History of right knee joint replacement Status: Chronic Code(s): Z96.651 - Presence of right artificial knee joint Type of Wound Date of Service: 04/15/20 Chief Complaint: Nonhealing ulcer right inferior knee s/p polyethylene exchange and gastrocnemius muscle flap reconstruction on 11/29/19 with compromise to the overlying skin graft and nonhealing ulcer right posterior leg. History of Wound: Surgery 11/29/19 - Irrigation debridement with polyethylene exchange right total knee and excision sinus tract right knee by Dr Barton. Reconstruction right inferior knee wound with right medial gastrocnemius mu scular rotation flap and STSG reconstruction from right lateral abdominal wall (45 cm2) and 13 cm right superior knee wound complex secondary wound closure and epineural repair sural nerve injury right posterior leg by Dr. Lazaro. Operative culture - negative. Currently on Doxycycline and Voriconazole. Prealbumin on 11/30/19 was 24.7. Encourage nutritional supplementation with protein to help the healing process. Today she denies fever. Her appetite is good. She is ambulating ok. She doesn't need the knee brace and occasionally will use the walker. She has burning nerve pain and tingling in the area of the sural nerve distribution. She is noticing improvement with the Neurontin. She has completed HBO treatments for compromise to the skin graft and is tolerating the treatments. We have started advanced skin substitute grafts to her right knee. Thus far we have placed 5 applications of Epifix placental connective tissue graft. Wound care - Continue Collagen hydrogel daily to both the right knee and posterior leg ulcers and to the new right lower leg ulcer. She had labs on 03/15/20. Her Alkaline Phosphatase was 166. It was 172 in November,. She will followup with her PCP. Progress of Wound: Muscle flap is healed. Skin graft/ulcer on right knee is improved. Nonhealing ulcer right posterior leg is improving. Has new open area on right lower leg. - Physical Exam Vital Signs Temp Pulse Resp BP 96.7 F L 82 16 129/47 H 04/15/20 08:12 04/15/20 08:12 04/15/20 08:12 04/15/20 08:12 General: Alert, Oriented x3, Cooperative HEENT: Atraumatic Oral: Moist Mucosa Lungs: Normal air movement Cardiovascular: Regular rate Abdomen: Obese Extremities: Capillary Refill Less than 3 Seconds, Edema Skin: Ulcer/ Wound - Right anterior knee open area is much smaller, pink in color. Right posterior leg ulcer is stable. She has a new ulcer on right lower leg that is superficial, pink in color. Wound Measurements and Assessment WC - Nurse 1 - General Ulcer Measurement Start: 04/08/20 08:32 Freq: Status: Active Protocol: Activity Type Activity Date Activity User E-Sign Co-Sign Detail Recorded Client Recorded Date Recorded By Document 04/15/20 08:12 ALETA [id number] 04/15/20 08:24 ALETA 04/15/20 08:12 Wound Center Nurse 1 [Ulcer Assessment] 5-right lower leg -Combined with other wound No -Current Size (cm) - Length 1.4 -Current Size (cm) - Width 1.5 -Current Size (cm) - Depth 0.1 -Total Square Cm 2.10 -Photo Taken Yes -Epithelialization Small 1-33% -Tunneling No -Undermining/Tunneling No -Circular Undermining No -Classification - Thickness Full Thickness without Exposed Support Structure -Exudate Amt Small -Exudate Type Sanguineous -Wound Margin Flat & Intact -Granulation Amt Medium (34-66%) -Granulation Quality Red -Slough/Fibrin Yes -Necrosis Amt Small (1-33%) -Necrotic Tissue Type Adherent Slough -Structure Exposed N/A -Texture (Aileen-wound Skin Appearance) Assessed, Localized Edema -Moisture (Aileen-wound Skin Appearance Assessed ) -Color (Aileen-wound Skin Appearance) Assessed -Temperature (Aileen-wound Skin No Abnormality Appearance) (Pt Warm) -Tenderness on Palpation (Aileen-wound No Skin Appearance) -Ulcer Cleansing Wound Cleanser -Anesthetic Used 4% Lidocaine Solution, Cetacaine #4 R Post calf -Combined with other wound No -Current Size (cm) - Length 0.1 -Current Size (cm) - Width 0.1 -Current Size (cm) - Depth 0.1 -Total Square Cm 0.01 -Photo Taken No -Epithelialization Large 67-100% -Tunneling No -Undermining/Tunneling No -Circular Undermining No -Exudate Amt None Present -Wound Margin Indistinct, Non -Visible -Granulation Amt Small (1-33%) -Slough/Fibrin Yes -Necrosis Amt Large (67-100%) -Necrotic Tissue Type Adherent Slough -Structure Exposed N/A,None/ Limited to Skin Breakdown -Texture (Aileen-wound Skin Appearance) Localized Edema -Moisture (Aileen-wound Skin Appearance Assessed,Dry/ ) Scaly -Color (Aileen-wound Skin Appearance) Assessed -Temperature (Aileen-wound Skin No Abnormality Appearance) (Pt Warm) -Tenderness on Palpation (Aileen-wound No Skin Appearance) -Ulcer Cleansing Rinsed/ Irrigated with Saline -Anesthetic Used 4% Lidocaine Solution, Cetacaine 3-right knee graft site -Combined with other wound No -Current Size (cm) - Length 0.1 -Current Size (cm) - Width 0.1 -Current Size (cm) - Depth 0.1 -Total Square Cm 0.01 -Photo Taken No -Epithelialization Large 67-100% -Tunneling No -Undermining/Tunneling No -Circular Undermining No -Exudate Amt None Present -Wound Margin Indistinct, Non -Visible -Granulation Amt None Present (0 %) -Slough/Fibrin Yes -Necrosis Amt Large (67-100%) -Necrotic Tissue Type Adherent Slough -Structure Exposed None/Limited to Skin Breakdown -Texture (Aileen-wound Skin Appearance) No Abnormality, Localized Edema -Moisture (Aileen-wound Skin Appearance Assessed,Dry/ ) Scaly -Color (Aileen-wound Skin Appearance) Assessed -Temperature (Aileen-wound Skin No Abnormality Appearance) (Pt Warm) -Tenderness on Palpation (Aileen-wound No Skin Appearance) -Ulcer Cleansing Rinsed/ Irrigated with Saline -Foul Odor after Cleansing No -Anesthetic Used 4% Lidocaine Solution [Edema Assessment] -Lower Limb Edema Present Yes -Right Calf (cm) 25.7 -Right Ankle (cm) 24.2 WC - Nurse 2 - General Ulcer CM Notes Start: 04/08/20 08:32 Freq: Status: Active Protocol: Activity Type Activity Date Activity User E-Sign Co-Sign Detail Recorded Client Recorded Date Recorded By Document 04/15/20 08:48 ALETA [id number] 04/15/20 08:55 JF 04/15/20 08:48 Wound Center Nurse 2 [Procedure/Treatment] 5-right lower leg -Time 08:50 -Correct Patient Yes -Correct Side, Site, Position Yes -Correct Procedure Yes -Procedure Performed Yes -Type of Procedure Debridement -Clinical Debridement Subcutaneous -Tissue Removed Subcutaneous -Post Debridement (cm) - Length 1.6 -Post Debridement (cm) - Width 1.9 -Post Debridement (cm) - Depth 0.1 -Total Square (Post) (cm) 3.04 -Area of Debridement (cm) - Length 1.6 -Area of Debridement (cm) - Width 1.9 -Total Square (Area) (cm) 3.04 -Tunneling No -Undermining/Tunneling No -Circular Undermining No -Wound/Ulcer Outcome Not Healed -Ulcer Cleansing Rinsed/ Irrigated with Saline -Foul Odor after Cleansing No -Bioengineered Tissue No -Bleeding Controlled with Pressure -Offloading No -Treatment Response Procedure Tolerated Well -Debridement - Subq, 1st 20sq cm Yes #4 R Post calf -Time 08:50 -Correct Patient Yes -Correct Side, Site, Position Yes -Correct Procedure Yes -Procedure Performed Yes -Type of Procedure Debridement -Clinical Debridement Subcutaneous -Tissue Removed Subcutaneous -Post Debridement (cm) - Length 0.5 -Post Debridement (cm) - Width 0.3 -Post Debridement (cm) - Depth 0.1 -Total Square (Post) (cm) 0.15 -Area of Debridement (cm) - Length 0.5 -Area of Debridement (cm) - Width 0.3 -Total Square (Area) (cm) 0.15 -Tunneling No -Undermining/Tunneling No -Circular Undermining No -Wound/Ulcer Outcome Not Healed -Ulcer Cleansing Rinsed/ Irrigated with Saline -Foul Odor after Cleansing No -Bioengineered Tissue No -Bleeding Controlled with Pressure -Offloading No -Treatment Response Procedure Tolerated Well -Debridement - Subq, 1st 20sq cm No 3-right knee graft site -Time 08:51 -Correct Patient Yes -Correct Side, Site, Position Yes -Correct Procedure Yes -Procedure Performed Yes -Type of Procedure Debridement -Clinical Debridement Subcutaneous -Tissue Removed Subcutaneous -Post Debridement (cm) - Length 0.1 -Post Debridement (cm) - Width 0.3 -Post Debridement (cm) - Depth 0.1 -Total Square (Post) (cm) 0.03 -Area of Debridement (cm) - Length 0.1 -Area of Debridement (cm) - Width 0.3 -Total Square (Area) (cm) 0.03 -Tunneling No -Undermining/Tunneling No -Circular Undermining No -Wound/Ulcer Outcome Not Healed -Ulcer Cleansing Rinsed/ Irrigated with Saline -Foul Odor after Cleansing No -Bioengineered Tissue No -Bleeding Controlled with Pressure -Offloading No -Treatment Response Procedure Tolerated Well -Debridement - Subq, 1st 20sq cm No [See Physician Procedure note for Specifics] Pain Scale: 0-10 Numeric [Pain] -Is Patient Pain Free? Yes - Nurse 3 - General Ulcer D/C NN Start: 04/08/20 08:32 Freq: Status: Active Protocol: Activity Type Activity Date Activity User E-Sign Co-Sign Detail Recorded Client Recorded Date Recorded By Document 04/15/20 09:09 ISAAC [id number] 04/15/20 09:10 ISAAC 04/15/20 09:09 Wound Care Nurse 3 [Wound Dressing] 5-right lower leg -Ulcer Cleansing Rinsed/ Irrigated with Saline -Foul Odor after Cleansing No -Primary Dressing Applied C Hydrogel ($), NonAdherent Contact Layer -Primary Dressing Covered/Secured Dry Gauze,Dry with Gauze & Roll Gauze #4 R Post calf -Ulcer Cleansing Rinsed/ Irrigated with Saline -Foul Odor after Cleansing No -Primary Dressing Covered/Secured Dry Gauze,Dry with Gauze & Roll Gauze 3-right knee graft site -Ulcer Cleansing Rinsed/ Irrigated with Saline -Foul Odor after Cleansing No -Primary Dressing Covered/Secured Dry Gauze,Dry with Gauze & Roll Gauze Pain Scale: 0-10 Numeric [Pain] -Is Patient Pain Free? Yes - Visit Discharge [Visit Discharge Information] -Discharge Condition Stable -Ambulatory Status Ambulatory -Transportation Private Auto Musculoskeletal: Tenderness Neurological: Cranial nerves II-XII grossly intact Psych/Mental Status: Normal Affect, Appropriate Debridement Note Post-Debridement Measurements/Treatment WC - Nurse 2 - General Ulcer CM Notes Start: 04/08/20 08:32 Freq: Status: Active Protocol: Activity Type Activity Date Activity User E-Sign Co-Sign Detail Recorded Client Recorded Date Recorded By Document 04/08/20 09:01 PL [id number] 04/08/20 09:12 PL Document 04/15/20 08:48 JF [id number] 04/15/20 08:55 JF 04/08/20 04/15/20 09:01 08:48 Wound Center Nurse 2 5-right lower leg -Time 08:50 -Correct Patient Yes -Correct Side, Site, Position Yes -Correct Procedure Yes -Procedure Performed Yes -Type of Procedure Debridement -Clinical Debridement Subcutaneous -Tissue Removed Subcutaneous -Post Debridement (cm) - Length 1.6 -Post Debridement (cm) - Width 1.9 -Post Debridement (cm) - Depth 0.1 -Total Square (Post) (cm) 3.04 -Area of Debridement (cm) - Length 1.6 -Area of Debridement (cm) - Width 1.9 -Total Square (Area) (cm) 3.04 -Tunneling No -Undermining/Tunneling No -Circular Undermining No -Wound/Ulcer Outcome Not Healed -Ulcer Cleansing Rinsed/ Irrigated with Saline -Foul Odor after Cleansing No -Bioengineered Tissue No -Bleeding Controlled with Pressure -Offloading No -Treatment Response Procedure Tolerated Well -Debridement - Subq, 1st 20sq cm Yes #4 R Post calf -Time 09:02 08:50 -Correct Patient Yes Yes -Correct Side, Site, Position Yes Yes -Correct Procedure Yes Yes -Procedure Performed Yes Yes -Type of Procedure Debridement Debridement -Clinical Debridement Subcutaneous Subcutaneous -Tissue Removed Subcutaneous Subcutaneous -Post Debridement (cm) - Length 1 0.5 -Post Debridement (cm) - Width 0.2 0.3 -Post Debridement (cm) - Depth 0.1 0.1 -Total Square (Post) (cm) 0.2 0.15 -Area of Debridement (cm) - Length 1 0.5 -Area of Debridement (cm) - Width 0.2 0.3 -Total Square (Area) (cm) 0.2 0.15 -Tunneling No No -Undermining/Tunneling No No -Circular Undermining No -Wound/Ulcer Outcome Not Healed -Ulcer Cleansing Rinsed/ Irrigated with Saline -Foul Odor after Cleansing No -Bioengineered Tissue No No -Bleeding Controlled with Pressure -Offloading No -Treatment Response Procedure Tolerated Well -Debridement - Subq, 1st 20sq cm Yes No 3-right knee graft site -Time 09:02 08:51 -Correct Patient Yes Yes -Correct Side, Site, Position Yes Yes -Correct Procedure Yes Yes -Procedure Performed Yes Yes -Type of Procedure Debridement Debridement -Clinical Debridement Subcutaneous Subcutaneous -Tissue Removed Subcutaneous Subcutaneous -Post Debridement (cm) - Length 1 0.1 -Post Debridement (cm) - Width 0.3 0.3 -Post Debridement (cm) - Depth 0.1 0.1 -Total Square (Post) (cm) 0.3 0.03 -Area of Debridement (cm) - Length 1 0.1 -Area of Debridement (cm) - Width 0.3 0.3 -Total Square (Area) (cm) 0.3 0.03 -Tunneling No -Undermining/Tunneling No No -Circular Undermining No No -Wound/Ulcer Outcome Not Healed Not Healed -Ulcer Cleansing Rinsed/ Irrigated with Saline -Foul Odor after Cleansing No -Bioengineered Tissue No No -Bleeding Controlled with Pressure -Offloading No -Treatment Response Procedure Tolerated Well -Debridement - Subq, 1st 20sq cm No No Pain Scale: 0-10 Numeric Is Patient Pain Free? Yes Yes WC - Nurse 3 - General Ulcer D/C NN Start: 04/08/20 08:32 Freq: Status: Active Protocol: Activity Type Activity Date Activity User E-Sign Co-Sign Detail Recorded Client Recorded Date Recorded By Document 04/08/20 09:15 MT [id number] 04/08/20 09:16 MT Document 04/15/20 09:09 KR [id number] 04/15/20 09:10 KR 04/08/20 04/15/20 09:15 09:09 Wound Care Nurse 3 5-right lower leg -Ulcer Cleansing Rinsed/ Irrigated with Saline -Foul Odor after Cleansing No -Primary Dressing Applied C Hydrogel ($), NonAdherent Contact Layer -Primary Dressing Covered/Secured with Dry Gauze,Dry Gauze & Roll Gauze #4 R Post calf -Ulcer Cleansing Rinsed/ Irrigated with Saline -Foul Odor after Cleansing No -Other Dressing hydrogel -Primary Dressing Covered/Secured with Dry Gauze, Dry Gauze,Dry Secured with Gauze & Roll Tape Gauze 3-right knee graft site -Ulcer Cleansing Rinsed/ Irrigated with Saline -Foul Odor after Cleansing No -Other Dressing hydrogel -Primary Dressing Covered/Secured with Dry Gauze, Dry Gauze,Dry Secured with Gauze & Roll Tape Gauze Right -Compression Wrap Roger Wrap Pain Scale: 0-10 Numeric Is Patient Pain Free? Yes WC - Visit Discharge Discharge Condition Stable Stable Ambulatory Status Ambulatory Ambulatory Transportation Private Auto Private Auto Medication Reconcilliation completed & No provided to patient/care provider Clinical Summary of Care Provided Yes Wound debrided: Anterior knee ulcer Laterality: Right Type of Debridement: Excisional debridement Anesthesia Used: 5% Lidocaine Gel Depth: Down to and including healthy tissue, in the subcutaneous layer Percentage of wound debrided: 100 Instrument Used: 3mm curette Tissue Removed: Subcutaneous tissue and slough Severity: Limited To Skin Breakdown Amount of bleeding with debridement: Mild Bleeding Controlled with: Pressure Patient tolerated procedure well - Additional Wound Wound debrided: Posterior leg ulcer Laterality: Right Type of Debridement: Excisional debridement Anesthesia Used: 5% Lidocaine Gel Depth: Down to and including healthy tissue, in the subcutaneous layer Percentage of wound debrided: 100 Instrument Used: 3mm curette Tissue Removed: Subcutaneous tissue and slough Severity: Limited To Skin Breakdown Amount of bleeding with debridement: Mild Bleeding Controlled with: Pressure Patient tolerated procedure: Patient tolerated procedure well - Additional Wound Wound debrided: New right lower leg ulcer Laterality: Right Type of Debridement: Excisional debridement Anesthesia Used: 5% Lidocaine Gel Depth: Down to and including healthy tissue, in the subcutaneous layer Percentage of wound debrided: 100 Instrument Used: 5mm curette Tissue Removed: Subcutaneous tissue and slough Severity: Limited To Skin Breakdown Amount of bleeding with debridement: Mild Bleeding Controlled with: Pressure Patient tolerated procedure: Patient tolerated procedure well Assessment/Plan Active Problems Chronic ulcer of right leg (Chronic) Diabetes mellitus with skin ulcer (Chronic) Former smoker (Chronic) History of right knee joint replacement (Chronic) 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 Nonhealing ulcer right inferior knee by tibial tubercle. 2. History of revision replacement right knee. 3. History of right TKA infection. 4. Former smoker. 5. Sural nerve injury right posterior leg. 6. 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 7. Nonhealing ulcer right posterior leg. 8. Mild skin graft compromise right inferior knee. Plan: Muscle flap is healing satisfactory. Skin graft shows good adherence and vascular ingrowth. About 90% take. Mild scattered areas of skin graft compromise noted. She benefited from HBO therapy, which she has stopped. We have started advanced skin substitute grafts to the right knee skin graft ulcer with Epifix placental connective tissue graft. She has had 5 applications of Epifix. Will not apply today. Wound care - Collagen Hydrogel daily to the knee and posterior leg and the new right lower leg ulcers. Cover with adaptic and gauze. Use moisturizer on unopened areas of legs to help with severely dry skin. Continue ROGER wrap for compression. She doesn't wear the knee brace anymore. Continue Doxycycline and Voriconazole. Prealbumin from 11/30/19 was 24.7. Encourage nutritional supplementation with protein to help the healing process. She exhibits good range of motion with her right knee as she can bend it almost 75-80 degrees. She had recent labs on 03/15/20. Her Alkaline Phosphatase was 166. It was 172 in November,. She will followup with her PCP. Followup one week. [id number]: [id number] [place] subq tissue 20 sq cm/<
[2020-04-22 08:33] VITALS: BP 170/98; PULSE 70; TEMP 35.9; BMI 45.3
--- NOTE | 2020-04-22 20:14 | PCM.WC.PN ---
Type of Wound Date of Service: 04/22/20 Chief Complaint: Nonhealing ulcer right lower leg. History of Wound: Surgery 11/29/19 - Irrigation debridement with polyethylene exchange right total knee and excision sinus tract right knee by Dr Barton. 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 Lazaro. Operative culture - negative. Currently on Doxycycline and Voriconazole. Prealbumin on 11/30/19 was 24.7. Encourage nutritional supplementation with protein to help the healing process. Today she denies fever. Her appetite is good. She is ambulating ok. She has completed HBO treatments for compromise to the skin graft. We also placed advanced skin substitute grafts to her right knee using Epifix placental connective tissue graft. Wound care to right lower leg ulcer - Collagen Hydrogel. Progress of Wound: Muscle flap is healed. Skin graft/ulcer on right knee remains healed. Ulcer right posterior leg remains healed. Ulcer right lower leg improved. - Physical Exam Vital Signs Temp Pulse Resp BP 96.7 F L 70 16 170/98 H 04/22/20 08:33 04/22/20 08:33 04/15/20 08:12 04/22/20 08:33 Wound Measurements and Assessment WC - Nurse 1 - General Ulcer Measurement Start: 04/08/20 08:32 Freq: Status: Active Protocol: Activity Type Activity Date Activity User E-Sign Co-Sign Detail Recorded Client Recorded Date Recorded By Document 04/22/20 08:33 KR [id number] 04/22/20 08:36 ISAAC 04/22/20 08:33 Wound Center Nurse 1 [Ulcer Assessment] 5-right lower leg -Current Size (cm) - Length 0.6 -Current Size (cm) - Width 0.5 -Current Size (cm) - Depth 0.1 -Total Square Cm 0.30 -Exudate Amt Small -Exudate Type Serosanguineous -Wound Margin Distinct, Outline Attached -Granulation Amt Small (1-33%) -Granulation Quality Red -Necrosis Amt None Present (0 %) -Texture (Aileen-wound Skin Appearance) Assessed, Scarring -Color (Aileen-wound Skin Appearance) No Abnormality, Assessed -Temperature (Aileen-wound Skin No Abnormality Appearance) (Pt Warm) -Tenderness on Palpation (Aileen-wound No Skin Appearance) -Ulcer Cleansing Rinsed/ Irrigated with Saline -Foul Odor after Cleansing No -Anesthetic Used 5% Lidocaine Gel #4 R Post calf -Current Size (cm) - Length 0.1 -Current Size (cm) - Width 0.1 -Current Size (cm) - Depth 0.1 -Total Square Cm 0.01 -Exudate Amt None Present -Wound Margin Distinct, Outline Attached -Granulation Amt None Present (0 %) -Necrosis Amt None Present (0 %) -Texture (Aileen-wound Skin Appearance) Assessed, Scarring -Moisture (Aileen-wound Skin Appearance No Abnormality, ) Assessed -Color (Aileen-wound Skin Appearance) No Abnormality, Assessed -Temperature (Aileen-wound Skin No Abnormality Appearance) (Pt Warm) -Tenderness on Palpation (Aileen-wound No Skin Appearance) -Ulcer Cleansing Rinsed/ Irrigated with Saline -Foul Odor after Cleansing No -Anesthetic Used 5% Lidocaine Gel 3-right knee graft site -Current Size (cm) - Length 0.1 -Current Size (cm) - Width 0.1 -Current Size (cm) - Depth 0.1 -Total Square Cm 0.01 -Exudate Amt None Present -Wound Margin Distinct, Outline Attached -Granulation Amt Small (1-33%) -Necrosis Amt None Present (0 %) -Texture (Aileen-wound Skin Appearance) Assessed, Scarring -Color (Aileen-wound Skin Appearance) No Abnormality, Assessed -Temperature (Aileen-wound Skin No Abnormality Appearance) (Pt Warm) -Tenderness on Palpation (Aileen-wound No Skin Appearance) -Ulcer Cleansing Rinsed/ Irrigated with Saline -Foul Odor after Cleansing No -Anesthetic Used 5% Lidocaine Gel WC - Nurse 2 - General Ulcer CM Notes Start: 04/08/20 08:32 Freq: Status: Active Protocol: Activity Type Activity Date Activity User E-Sign Co-Sign Detail Recorded Client Recorded Date Recorded By Document 04/22/20 09:08 ALETA [id number] 04/22/20 09:14 ALETA 04/22/20 09:08 Wound Center Nurse 2 [Procedure/Treatment] 5-right lower leg -Time 09:10 -Correct Patient Yes -Correct Side, Site, Position Yes -Correct Procedure Yes -Procedure Performed Yes -Type of Procedure Debridement -Clinical Debridement Subcutaneous -Tissue Removed Subcutaneous -Post Debridement (cm) - Length 1 -Post Debridement (cm) - Width 1 -Post Debridement (cm) - Depth 0.1 -Total Square (Post) (cm) 1 -Area of Debridement (cm) - Length 1 -Area of Debridement (cm) - Width 1 -Total Square (Area) (cm) 1 -Tunneling No -Undermining/Tunneling No -Circular Undermining No -Wound/Ulcer Outcome Not Healed -Ulcer Cleansing Rinsed/ Irrigated with Saline -Foul Odor after Cleansing No -Bioengineered Tissue No -Bleeding Controlled with Pressure -Offloading No -Treatment Response Procedure Tolerated Well -Debridement - Subq, 1st 20sq cm Yes #4 R Post calf -Correct Patient No -Correct Side, Site, Position No -Correct Procedure No -Procedure Performed No -Post Debridement (cm) - Length 0 -Post Debridement (cm) - Width 0 -Post Debridement (cm) - Depth 0 -Total Square (Post) (cm) 0 -Area of Debridement (cm) - Length 0 -Area of Debridement (cm) - Width 0 -Total Square (Area) (cm) 0 -Wound/Ulcer Outcome Healed- Epithelialized 3-right knee graft site -Correct Patient No -Correct Side, Site, Position No -Correct Procedure No -Procedure Performed No -Post Debridement (cm) - Length 0 -Post Debridement (cm) - Width 0 -Post Debridement (cm) - Depth 0 -Total Square (Post) (cm) 0 -Area of Debridement (cm) - Length 0 -Area of Debridement (cm) - Width 0 -Total Square (Area) (cm) 0 [See Physician Procedure note for Specifics] Pain Scale: 0-10 Numeric [Pain] -Is Patient Pain Free? Yes Debridement Note Post-Debridement Measurements/Treatment WC - Nurse 2 - General Ulcer CM Notes Start: 04/08/20 08:32 Freq: Status: Active Protocol: Activity Type Activity Date Activity User E-Sign Co-Sign Detail Recorded Client Recorded Date Recorded By Document 04/08/20 09:01 CELESTINA [id number] 04/08/20 09:12 PL Document 04/15/20 08:48 JF [id number] 04/15/20 08:55 JF Document 04/22/20 09:08 JF [id number] 04/22/20 09:14 JF 04/08/20 04/15/20 04/22/20 09:01 08:48 09:08 Wound Center Nurse 2 5-right lower leg -Time 08:50 09:10 -Correct Patient Yes Yes -Correct Side, Site, Position Yes Yes -Correct Procedure Yes Yes -Procedure Performed Yes Yes -Type of Procedure Debridement Debridement -Clinical Debridement Subcutaneous Subcutaneous -Tissue Removed Subcutaneous Subcutaneous -Post Debridement (cm) - Length 1.6 1 -Post Debridement (cm) - Width 1.9 1 -Post Debridement (cm) - Depth 0.1 0.1 -Total Square (Post) (cm) 3.04 1 -Area of Debridement (cm) - Length 1.6 1 -Area of Debridement (cm) - Width 1.9 1 -Total Square (Area) (cm) 3.04 1 -Tunneling No No -Undermining/Tunneling No No -Circular Undermining No No -Wound/Ulcer Outcome Not Healed Not Healed -Ulcer Cleansing Rinsed/ Rinsed/ Irrigated with Irrigated with Saline Saline -Foul Odor after Cleansing No No -Bioengineered Tissue No No -Bleeding Controlled with Pressure Pressure -Offloading No No -Treatment Response Procedure Procedure Tolerated Well Tolerated Well -Debridement - Subq, 1st 20sq cm Yes Yes #4 R Post calf -Time 09:02 08:50 -Correct Patient Yes Yes No -Correct Side, Site, Position Yes Yes No -Correct Procedure Yes Yes No -Procedure Performed Yes Yes No -Type of Procedure Debridement Debridement -Clinical Debridement Subcutaneous Subcutaneous -Tissue Removed Subcutaneous Subcutaneous -Post Debridement (cm) - Length 1 0.5 0 -Post Debridement (cm) - Width 0.2 0.3 0 -Post Debridement (cm) - Depth 0.1 0.1 0 -Total Square (Post) (cm) 0.2 0.15 0 -Area of Debridement (cm) - Length 1 0.5 0 -Area of Debridement (cm) - Width 0.2 0.3 0 -Total Square (Area) (cm) 0.2 0.15 0 -Tunneling No No -Undermining/Tunneling No No -Circular Undermining No -Wound/Ulcer Outcome Not Healed Healed- Epithelialized -Ulcer Cleansing Rinsed/ Irrigated with Saline -Foul Odor after Cleansing No -Bioengineered Tissue No No -Bleeding Controlled with Pressure -Offloading No -Treatment Response Procedure Tolerated Well -Debridement - Subq, 1st 20sq cm Yes No 3-right knee graft site -Time 09:02 08:51 -Correct Patient Yes Yes No -Correct Side, Site, Position Yes Yes No -Correct Procedure Yes Yes No -Procedure Performed Yes Yes No -Type of Procedure Debridement Debridement -Clinical Debridement Subcutaneous Subcutaneous -Tissue Removed Subcutaneous Subcutaneous -Post Debridement (cm) - Length 1 0.1 0 -Post Debridement (cm) - Width 0.3 0.3 0 -Post Debridement (cm) - Depth 0.1 0.1 0 -Total Square (Post) (cm) 0.3 0.03 0 -Area of Debridement (cm) - Length 1 0.1 0 -Area of Debridement (cm) - Width 0.3 0.3 0 -Total Square (Area) (cm) 0.3 0.03 0 -Tunneling No -Undermining/Tunneling No No -Circular Undermining No No -Wound/Ulcer Outcome Not Healed Not Healed -Ulcer Cleansing Rinsed/ Irrigated with Saline -Foul Odor after Cleansing No -Bioengineered Tissue No No -Bleeding Controlled with Pressure -Offloading No -Treatment Response Procedure Tolerated Well -Debridement - Subq, 1st 20sq cm No No Pain Scale: 0-10 Numeric Is Patient Pain Free? Yes Yes Yes - Nurse 3 - General Ulcer D/C NN Start: 04/08/20 08:32 Freq: Status: Active Protocol: Activity Type Activity Date Activity User E-Sign Co-Sign Detail Recorded Client Recorded Date Recorded By Document 04/08/20 09:15 OH [id number] 04/08/20 09:16 MT Document 04/15/20 09:09 [id number] 04/15/20 09:10 KR 04/08/20 04/15/20 09:15 09:09 Wound Care Nurse 3 5-right lower leg -Ulcer Cleansing Rinsed/ Irrigated with Saline -Foul Odor after Cleansing No -Primary Dressing Applied C Hydrogel ($), NonAdherent Contact Layer -Primary Dressing Covered/Secured with Dry Gauze,Dry Gauze & Roll Gauze #4 R Post calf -Ulcer Cleansing Rinsed/ Irrigated with Saline -Foul Odor after Cleansing No -Other Dressing hydrogel -Primary Dressing Covered/Secured with Dry Gauze, Dry Gauze,Dry Secured with Gauze & Roll Tape Gauze 3-right knee graft site -Ulcer Cleansing Rinsed/ Irrigated with Saline -Foul Odor after Cleansing No -Other Dressing hydrogel -Primary Dressing Covered/Secured with Dry Gauze, Dry Gauze,Dry Secured with Gauze & Roll Tape Gauze Right -Compression Wrap Roger Wrap Pain Scale: 0-10 Numeric Is Patient Pain Free? Yes WC - Visit Discharge Discharge Condition Stable Stable Ambulatory Status Ambulatory Ambulatory Transportation Private Auto Private Auto Medication Reconcilliation completed & No provided to patient/care provider Clinical Summary of Care Provided Yes Wound debrided: #5 Right lower leg. Laterality: Right Wound Grade/Stage: 2. Type of Debridement: Excisional debridement Anesthesia Used: 4% Lidocaine Solution Depth: Down to and including healthy tissue, in the subcutaneous layer Percentage of wound debrided: 100 Instrument Used: 3mm curette Tissue Removed: subcutaneous tissue. 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 Nonhealing ulcer right lower leg. 2. History of revision replacement right knee. 3. History of right TKA infection. 4. Former smoker. 5. Sural nerve injury right posterior leg. 6. 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 7. Ulcer right posterior leg, healed. 8. Mild skin graft compromise right inferior knee, healed. Plan: Muscle flap is healed. Skin graft remains healed. Ulcer right posterior leg remains healed. Wound care right lower leg - Collagen Hydrogel daily. Continue ROGER wrap for compression. She doesn't wear the knee brace anymore. Continue Doxycycline and Voriconazole. She exhibits good range of motion with her right knee as she can bend it almost 75-80 degrees. Followup one week. [id number]: [id number] [place] subq tissue 20 sq cm/< - ICD-10 - L97.912, Z96.651, T84.53xS, S84.21xA, T86.828, Z87.891
[2020-04-29 08:23] VITALS: BP 163/92; PULSE 91; TEMP 35.8; BMI 45.3
--- NOTE | 2020-04-29 09:28 | PN.PCM_ITS ---
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 Status: Chronic Code(s): L97.912 - Non-pressure chronic ulcer of unspecified part of right lower leg with fat layer exposed Comment: Nonhealing ulcer right lower leg Nonhealing ulcer right inferior knee by tibial tubercle (2) Chronic ulcer of right leg Status: Chronic Code(s): L97.919 - Non-pressure chronic ulcer of unspecified part of right lower leg with unspecified severity (3) Diabetes mellitus with skin ulcer Status: Chronic Code(s): E11.622 - Type 2 diabetes mellitus with other skin ulcer; L98.499 - Non-pressure chronic ulcer of skin of other sites with unspecified severity (4) Former smoker Status: Chronic Code(s): Z87.891 - Personal history of nicotine dependence (5) History of right knee joint replacement Status: Chronic Code(s): Z96.651 - Presence of right artificial knee joint (6) Venous (peripheral) insufficiency Status: Chronic Code(s): I87.2 - Venous insufficiency (chronic) (peripheral) (7) Edema leg Status: Chronic Code(s): R60.0 - Localized edema Type of Wound Date of Service: 04/29/20 Chief Complaint: Nonhealing ulcer right lower leg. History of Wound: Surgery 11/29/19 - Irrigation debridement with polyethylene exchange right total knee and excision sinus tract right knee by Dr Barton. 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 Lazaro. Operative culture - negative. Currently on Doxycycline and Voriconazole. Prealbumin on 11/30/19 was 24.7. Encourage nutritional supplementation with protein to help the healing process. Today she denies fever. Her appetite is good. She is ambulating ok. She has completed HBO treatments for compromise to the skin graft. We also placed advanced skin substitute grafts to her right kn ee using Epifix placental connective tissue graft. Wound care to right lower leg ulcer - Collagen Hydrogel to right leg ulcer and will start on the excoriated area on proximal leg near the flap caused from her compression stockings. Progress of Wound: Muscle flap is healed but she has a small excoriation on the proximal edge from her compression stockings. Skin graft/ulcer on right knee remains healed. Ulcer right posterior leg remains healed. Ulcer right lower leg improved. - Physical Exam Vital Signs Temp Pulse Resp BP 96.5 F L 91 16 163/92 H 04/29/20 08:23 04/29/20 08:23 04/15/20 08:12 04/29/20 08:23 General: Alert, Oriented x3, Cooperative HEENT: Atraumatic Oral: Moist Mucosa Lungs: Normal air movement Cardiovascular: Regular rate Abdomen: Obese Extremities: Capillary Refill Less than 3 Seconds, Edema Skin: Ulcer/ Wound - Right lower leg ulcer is improving in size. Right knee flap on proximal edge has some excoriation due to where her compression stocking is rubbing. Wound Measurements and Assessment WC - Nurse 1 - General Ulcer Measurement Start: 04/08/20 08:32 Freq: Status: Active Protocol: Activity Type Activity Date Activity User E-Sign Co-Sign Detail Recorded Client Recorded Date Recorded By Document 04/29/20 08:23 ISAAC [id number] 04/29/20 08:24 ISAAC 04/29/20 08:23 Wound Center Nurse 1 [Ulcer Assessment] 5-right lower leg -Current Size (cm) - Length 0.1 -Current Size (cm) - Width 0.1 -Current Size (cm) - Depth 0.1 -Total Square Cm 0.01 -Exudate Amt None Present -Wound Margin Distinct, Outline Attached -Granulation Amt Small (1-33%) -Granulation Quality Red -Necrosis Amt None Present (0 %) -Texture (Aileen-wound Skin Appearance) Assessed, Scarring -Moisture (Aileen-wound Skin Appearance No Abnormality, ) Assessed -Color (Aileen-wound Skin Appearance) No Abnormality, Assessed -Temperature (Aileen-wound Skin No Abnormality Appearance) (Pt Warm) -Tenderness on Palpation (Aileen-wound No Skin Appearance) -Ulcer Cleansing Rinsed/ Irrigated with Saline -Foul Odor after Cleansing No -Anesthetic Used 5% Lidocaine Gel WC - Nurse 2 - General Ulcer CM Notes Start: 04/08/20 08:32 Freq: Status: Active Protocol: Activity Type Activity Date Activity User E-Sign Co-Sign Detail Recorded Client Recorded Date Recorded By Document 04/29/20 08:46 ALETA [id number] 04/29/20 08:51 ALETA 04/29/20 08:46 Wound Center Nurse 2 [Procedure/Treatment] -Time 08:46 -Correct Patient Yes -Correct Side, Site, Position Yes -Correct Procedure Yes -Procedure Performed Yes -Type of Procedure Debridement -Clinical Debridement Subcutaneous -Tissue Removed Subcutaneous -Post Debridement (cm) - Length 0.2 -Post Debridement (cm) - Width 0.2 -Post Debridement (cm) - Depth 0.1 -Total Square (Post) (cm) 0.04 -Area of Debridement (cm) - Length 0.2 -Area of Debridement (cm) - Width 0.2 -Total Square (Area) (cm) 0.04 -Tunneling No -Undermining/Tunneling No -Circular Undermining No -Wound/Ulcer Outcome Not Healed -Ulcer Cleansing Rinsed/ Irrigated with Saline -Foul Odor after Cleansing No -Bioengineered Tissue No -Bleeding Controlled with Pressure -Offloading No -Treatment Response Procedure Tolerated Well -Debridement - Subq, 1st 20sq cm Yes [See Physician Procedure note for Specifics] Pain Scale: 0-10 Numeric [Pain] -Is Patient Pain Free? Yes - Nurse 3 - General Ulcer D/C NN Start: 04/08/20 08:32 Freq: Status: Active Protocol: Activity Type Activity Date Activity User E-Sign Co-Sign Detail Recorded Client Recorded Date Recorded By Document 04/29/20 09:06 KR [id number] 04/29/20 09:07 KR 04/29/20 09:06 Wound Care Nurse 3 [Wound Dressing] 5-right lower leg -Ulcer Cleansing Rinsed/ Irrigated with Saline -Foul Odor after Cleansing No -Primary Dressing Applied C Hydrogel ($), NonAdherent Contact Layer -Primary Dressing Covered/Secured Dry Gauze & with Roll Gauze, Secured with Tape Pain Scale: 0-10 Numeric [Pain] -Is Patient Pain Free? Yes - Visit Discharge [Visit Discharge Information] -Discharge Condition Stable -Ambulatory Status Ambulatory -Transportation Private Auto Musculoskeletal: Tenderness Neurological: Cranial nerves II-XII grossly intact Psych/Mental Status: Normal Affect, Appropriate Debridement Note Post-Debridement Measurements/Treatment WC - Nurse 2 - General Ulcer CM Notes Start: 04/08/20 08:32 Freq: Status: Active Protocol: Activity Type Activity Date Activity User E-Sign Co-Sign Detail Recorded Client Recorded Date Recorded By Document 04/08/20 09:01 PL [id number] 04/08/20 09:12 PL Document 04/15/20 08:48 JF [id number] 04/15/20 08:55 JF Document 04/22/20 09:08 JF [id number] 04/22/20 09:14 JF Document 04/29/20 08:46 JF [id number] 04/29/20 08:51 JF 04/08/20 04/15/20 04/22/20 09:01 08:48 09:08 Wound Center Nurse 2 5-right lower leg -Time 08:50 09:10 -Correct Patient Yes Yes -Correct Side, Site, Position Yes Yes -Correct Procedure Yes Yes -Procedure Performed Yes Yes -Type of Procedure Debridement Debridement -Clinical Debridement Subcutaneous Subcutaneous -Tissue Removed Subcutaneous Subcutaneous -Post Debridement (cm) - Length 1.6 1 -Post Debridement (cm) - Width 1.9 1 -Post Debridement (cm) - Depth 0.1 0.1 -Total Square (Post) (cm) 3.04 1 -Area of Debridement (cm) - Length 1.6 1 -Area of Debridement (cm) - Width 1.9 1 -Total Square (Area) (cm) 3.04 1 -Tunneling No No -Undermining/Tunneling No No -Circular Undermining No No -Wound/Ulcer Outcome Not Healed Not Healed -Ulcer Cleansing Rinsed/ Rinsed/ Irrigated with Irrigated with Saline Saline -Foul Odor after Cleansing No No -Bioengineered Tissue No No -Bleeding Controlled with Pressure Pressure -Offloading No No -Treatment Response Procedure Procedure Tolerated Well Tolerated Well -Debridement - Subq, 1st 20sq cm Yes Yes #4 R Post calf -Time 09:02 08:50 -Correct Patient Yes Yes No -Correct Side, Site, Position Yes Yes No -Correct Procedure Yes Yes No -Procedure Performed Yes Yes No -Type of Procedure Debridement Debridement -Clinical Debridement Subcutaneous Subcutaneous -Tissue Removed Subcutaneous Subcutaneous -Post Debridement (cm) - Length 1 0.5 0 -Post Debridement (cm) - Width 0.2 0.3 0 -Post Debridement (cm) - Depth 0.1 0.1 0 -Total Square (Post) (cm) 0.2 0.15 0 -Area of Debridement (cm) - Length 1 0.5 0 -Area of Debridement (cm) - Width 0.2 0.3 0 -Total Square (Area) (cm) 0.2 0.15 0 -Tunneling No No -Undermining/Tunneling No No -Circular Undermining No -Wound/Ulcer Outcome Not Healed Healed- Epithelialized -Ulcer Cleansing Rinsed/ Irrigated with Saline -Foul Odor after Cleansing No -Bioengineered Tissue No No -Bleeding Controlled with Pressure -Offloading No -Treatment Response Procedure Tolerated Well -Debridement - Subq, 1st 20sq cm Yes No 3-right knee graft site -Time 09:02 08:51 -Correct Patient Yes Yes No -Correct Side, Site, Position Yes Yes No -Correct Procedure Yes Yes No -Procedure Performed Yes Yes No -Type of Procedure Debridement Debridement -Clinical Debridement Subcutaneous Subcutaneous -Tissue Removed Subcutaneous Subcutaneous -Post Debridement (cm) - Length 1 0.1 0 -Post Debridement (cm) - Width 0.3 0.3 0 -Post Debridement (cm) - Depth 0.1 0.1 0 -Total Square (Post) (cm) 0.3 0.03 0 -Area of Debridement (cm) - Length 1 0.1 0 -Area of Debridement (cm) - Width 0.3 0.3 0 -Total Square (Area) (cm) 0.3 0.03 0 -Tunneling No -Undermining/Tunneling No No -Circular Undermining No No -Wound/Ulcer Outcome Not Healed Not Healed -Ulcer Cleansing Rinsed/ Irrigated with Saline -Foul Odor after Cleansing No -Bioengineered Tissue No No -Bleeding Controlled with Pressure -Offloading No -Treatment Response Procedure Tolerated Well -Debridement - Subq, 1st 20sq cm No No Pain Scale: 0-10 Numeric Is Patient Pain Free? Yes Yes Yes 04/29/20 08:46 Wound Center Nurse 2 5-right lower leg -Time 08:46 -Correct Patient Yes -Correct Side, Site, Position Yes -Correct Procedure Yes -Procedure Performed Yes -Type of Procedure Debridement -Clinical Debridement Subcutaneous -Tissue Removed Subcutaneous -Post Debridement (cm) - Length 0.2 -Post Debridement (cm) - Width 0.2 -Post Debridement (cm) - Depth 0.1 -Total Square (Post) (cm) 0.04 -Area of Debridement (cm) - Length 0.2 -Area of Debridement (cm) - Width 0.2 -Total Square (Area) (cm) 0.04 -Tunneling No -Undermining/Tunneling No -Circular Undermining No -Wound/Ulcer Outcome Not Healed -Ulcer Cleansing Rinsed/ Irrigated with Saline -Foul Odor after Cleansing No -Bioengineered Tissue No -Bleeding Controlled with Pressure -Offloading No -Treatment Response Procedure Tolerated Well -Debridement - Subq, 1st 20sq cm Yes #4 R Post calf -Time -Correct Patient -Correct Side, Site, Position -Correct Procedure -Procedure Performed -Type of Procedure -Clinical Debridement -Tissue Removed -Post Debridement (cm) - Length -Post Debridement (cm) - Width -Post Debridement (cm) - Depth -Total Square (Post) (cm) -Area of Debridement (cm) - Length -Area of Debridement (cm) - Width -Total Square (Area) (cm) -Tunneling -Undermining/Tunneling -Circular Undermining -Wound/Ulcer Outcome -Ulcer Cleansing -Foul Odor after Cleansing -Bioengineered Tissue -Bleeding Controlled with -Offloading -Treatment Response -Debridement - Subq, 1st 20sq cm 3-right knee graft site -Time -Correct Patient -Correct Side, Site, Position -Correct Procedure -Procedure Performed -Type of Procedure -Clinical Debridement -Tissue Removed -Post Debridement (cm) - Length -Post Debridement (cm) - Width -Post Debridement (cm) - Depth -Total Square (Post) (cm) -Area of Debridement (cm) - Length -Area of Debridement (cm) - Width -Total Square (Area) (cm) -Tunneling -Undermining/Tunneling -Circular Undermining -Wound/Ulcer Outcome -Ulcer Cleansing -Foul Odor after Cleansing -Bioengineered Tissue -Bleeding Controlled with -Offloading -Treatment Response -Debridement - Subq, 20sq cm Pain Scale: 0-10 Numeric Is Patient Pain Free? Yes WC - Nurse 3 - General Ulcer D/C NN Start: 04/08/20 08:32 Freq: Status: Active Protocol: Activity Type Activity Date Activity User E-Sign Co-Sign Detail Recorded Client Recorded Date Recorded By Document 04/08/20 09:15 MT [id number] 04/08/20 09:16 MT Document 04/15/20 09:09 KR [id number] 04/15/20 09:10 KR Document 04/29/20 09:06 KR [id number] 04/29/20 09:07 KR 04/08/20 04/15/20 04/29/20 09:15 09:09 09:06 Wound Care Nurse 3 5-right lower leg -Ulcer Cleansing Rinsed/ Rinsed/ Irrigated with Irrigated with Saline Saline -Foul Odor after Cleansing No No -Primary Dressing Applied C Hydrogel ($), C Hydrogel ($), NonAdherent NonAdherent Contact Layer Contact Layer -Primary Dressing Covered/Secured with Dry Gauze,Dry Dry Gauze & Gauze & Roll Roll Gauze, Gauze Secured with Tape #4 R Post calf -Ulcer Cleansing Rinsed/ Irrigated with Saline -Foul Odor after Cleansing No -Other Dressing hydrogel -Primary Dressing Covered/Secured with Dry Gauze, Dry Gauze,Dry Secured with Gauze & Roll Tape Gauze 3-right knee graft site -Ulcer Cleansing Rinsed/ Irrigated with Saline -Foul Odor after Cleansing No -Other Dressing hydrogel -Primary Dressing Covered/Secured with Dry Gauze, Dry Gauze,Dry Secured with Gauze & Roll Tape Gauze Right -Compression Wrap Roger Wrap Pain Scale: 0-10 Numeric Is Patient Pain Free? Yes Yes WC - Visit Discharge Discharge Condition Stable Stable Stable Ambulatory Status Ambulatory Ambulatory Ambulatory Transportation Private Auto Private Auto Private Auto Medication Reconcilliation completed & No provided to patient/care provider Clinical Summary of Care Provided Yes Wound debrided: leg ulcer Laterality: Right Type of Debridement: Excisional debridement Anesthesia Used: 5% Lidocaine Gel Depth: Down to and including healthy tissue, in the subcutaneous layer Percentage of wound debrided: 100 Instrument Used: 3mm curette Tissue Removed: Subcutaneous tissue and slough Severity: Limited To Skin Breakdown Amount of bleeding with debridement: Mild Bleeding Controlled with: Pressure Patient tolerated procedure well Assessment/Plan Active Problems Venous (peripheral) insufficiency (Chronic) Chronic ulcer of right leg (Chronic) Diabetes mellitus with skin ulcer (Chronic) Former smoker (Chronic) History of right knee joint replacement (Chronic) Nonhealing ulcer of right lower extremity with fat layer exposed (Chronic) Nonhealing ulcer right lower leg Nonhealing ulcer right inferior knee by tibial tubercle Edema leg (Chronic) Assessment: 1. Nonhealing ulcer right lower leg. 2. History of revision replacement right knee. 3. History of right TKA infection. 4. Former smoker. 5. Sural nerve injury right posterior leg. 6. 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 7. Ulcer right posterior leg, healed. 8. Mild skin graft compromise right inferior knee, healed. Plan: Muscle flap is healed. There is a small amount of excoriation at the proximal edge caused by her compression stockings. Skin graft remains healed. Ulcer right posterior leg remains healed. Wound care right lower leg - Collagen Hydrogel daily and to the proximal edge of the flap excoriated area. Will order Circaids for compression to see if this will help with the issues she is having at with the skin irritaion/excoriation on her proximal leg/knee area from her compression stockings. Continue ROGER wrap for compression. She doesn't wear the knee brace anymore. Continue Doxycycline and Voriconazole. She exhibits good range of motion with her right knee as she can bend it almost 75-80 degrees. Followup one week. [id number]: [id number] [place] subq tissue 20 sq cm/<
== END 2020-05-05 23:59 ==
LOC: WC 08:15
PROVIDERS: PCP Family Medicine; Referring Provider Surgery; Visit Provider Surgery
DX: E11.621 Type 2 diabetes mellitus with foot ulcer (principal); L97.912 Non-pressure chronic ulcer of unspecified part of right lower leg with fat layer exposed; Z87.891 Personal history of nicotine dependence; Z96.651 Presence of right artificial knee joint; I87.2 Venous insufficiency (chronic) (peripheral); R60.0 Localized edema
CPT/HCPCS: 11042

== ENCOUNTER 2020-05-13 13:15 | Outpatient (RCR) | payer BC, SELFPAY ==
[2020-05-06 00:21] VITALS: BP 163/92; PULSE 91; RESP 16; TEMP 35.8
[2020-05-07 11:55] VITALS: BP 144/99; PULSE 84; RESP 17; TEMP 35.7; BMI 45.3
[2020-05-13 08:04] VITALS: BP 162/86; PULSE 85; RESP 16; TEMP 36.1; BMI 45.3
--- NOTE | 2020-05-13 14:10 | PCM.WC.PN ---
(1) Chronic ulcer of right leg Status: Chronic Code(s): L97.919 - Non-pressure chronic ulcer of unspecified part of right lower leg with unspecified severity (2) Edema leg Status: Chronic Code(s): R60.0 - Localized edema (3) Venous (peripheral) insufficiency Status: Chronic Code(s): I87.2 - Venous insufficiency (chronic) (peripheral) (4) History of right knee joint replacement Status: Chronic Code(s): Z96.651 - Presence of right artificial knee joint (5) Diabetes mellitus Status: Chronic Code(s): E11.9 - Type 2 diabetes mellitus without complications (6) Former smoker Status: Chronic Code(s): Z87.891 - Personal history of nicotine dependence Type of Wound Date of Service: 05/13/20 Chief Complaint: Nonhealing ulcer right lower leg. History of Wound: Surgery 11/29/19 - Irrigation debridement with polyethylene exchange right total knee and excision sinus tract right knee by Dr Barton. 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 Lazaro. Operative culture - negative. Currently on Doxycycline and Voriconazole. Prealbumin on 11/30/19 was 24.7. Encourage nutritional supplementation with protein to help the healing process. Today she denies fever. Her appetite is good. She is ambulating ok. She has completed HBO treatments for compromise to the skin graft. We also placed advanced skin substitute grafts to her right knee using Epifix placental connective tissue graft. Wound care to right lower leg ulcer She is healed today. She has obtained her circaids. She is now experiencing swelling around her knees and thighs. [facility] for further managment. Progress of Wound: Muscle flap is healed but she has a small excoriation on the proximal edge from her compression stockings. Skin graft/ulcer on right knee remains healed. Ulcer right posterior leg remains healed. Ulcer right lower leg improved. - Physical Exam Vital Signs Temp Pulse Resp BP 97 F L 85 16 162/86 H 05/13/20 08:04 05/13/20 08:04 05/13/20 08:04 05/13/20 08:04 General: Alert, Oriented x3, Cooperative HEENT: Atraumatic Oral: Moist Mucosa Lungs: Normal air movement Cardiovascular: Regular rate Abdomen: Soft Extremities: Edema - Bilateral lower extremity edema, worsen in right knee and thigh than the left. Wearing circaids bilateral lower extremity that is helping with her swelling of lower legs but now has increase in the knees and thighs. Skin: Ulcer/ Wound - Right anterior knee and right posterior leg/calf ulcers are healed. Incisions are still very dry and flaky even after using lotion daily. Wound Measurements and Assessment WC - Nurse 1 - General Ulcer Measurement Start: 05/07/20 11:55 Freq: Status: Discharge Protocol: Activity Type Activity Date Activity User E-Sign Co-Sign Detail Recorded Client Recorded Date Recorded By Document 05/13/20 08:04 [facility] [id number] 05/13/20 08:05 [facility] Edit Status 05/13/20 14:01 BKMaria Isabel DAEMON Active=>Discharge [id number] 05/13/20 14:01 NITHYA DAEMON 05/13/20 08:04 Wound Center Nurse 1 [Ulcer Assessment] 5-right lower leg -Combined with other wound No -Current Size (cm) - Length 0.1 -Current Size (cm) - Width 0.1 -Current Size (cm) - Depth 0.1 -Total Square Cm 0.01 -Epithelialization Large 67-100% -Texture (Aileen-wound Skin Appearance) Assessed -Moisture (Aileen-wound Skin Appearance Assessed ) -Color (Aileen-wound Skin Appearance) Assessed -Temperature (Aileen-wound Skin No Abnormality Appearance) (Pt Warm) -Tenderness on Palpation (Aileen-wound No Skin Appearance) -Ulcer Cleansing Rinsed/ Irrigated with Saline -Foul Odor after Cleansing No -Anesthetic Used 4% Lidocaine Solution - Nurse 2 - General Ulcer CM Notes Start: 05/07/20 11:55 Freq: Status: Discharge Protocol: Activity Type Activity Date Activity User E-Sign Co-Sign Detail Recorded Client Recorded Date Recorded By Document 05/13/20 13:40 ALETA [id number] 05/13/20 13:42 ALETA Edit Status 05/13/20 14:01 BKMaria Isabel DAEMON Active=>Discharge [id number] 05/13/20 14:01 NITHYA DAEMON 05/13/20 13:40 Wound Center Nurse 2 [Procedure/Treatment] -Correct Patient No -Correct Side, Site, Position No -Correct Procedure No -Procedure Performed No -Post Debridement (cm) - Length 0 -Post Debridement (cm) - Width 0 -Post Debridement (cm) - Depth 0 -Total Square (Post) (cm) 0 -Area of Debridement (cm) - Length 0 -Area of Debridement (cm) - Width 0 -Total Square (Area) (cm) 0 -Wound/Ulcer Outcome Healed- Epithelialized [See Physician Procedure note for Specifics] Pain Scale: 0-10 Numeric [Pain] -Is Patient Pain Free? Yes - Nurse 3 - General Ulcer D/C NN Start: 05/07/20 11:55 Freq: Status: Discharge Protocol: Activity Type Activity Date Activity User E-Sign Co-Sign Detail Recorded Client Recorded Date Recorded By Document 05/13/20 13:57 [facility] [id number] 05/13/20 13:57 [facility] Edit Status 05/13/20 14:01 NASIMG DAEMDEAN Active=>Discharge [id number] 05/13/20 14:01 BKG DAEMON 05/13/20 13:57 Wound Care Nurse 3 [Compression Applied] Right -Other circaid Left -Other circaid [Post Procedure Tolerated] -Treatment Response Procedure Tolerated Well Pain Scale: 0-10 Numeric [Pain] -Is Patient Pain Free? Yes - Visit Discharge [Visit Discharge Information] -Discharge Condition Stable -Ambulatory Status Ambulatory -Transportation Private Auto Musculoskeletal: Tenderness Neurological: Cranial nerves II-XII grossly intact Psych/Mental Status: Normal Affect, Appropriate Debridement Note Post-Debridement Measurements/Treatment - Nurse 2 - General Ulcer CM Notes Start: 05/07/20 11:55 Freq: Status: Discharge Protocol: Activity Type Activity Date Activity User E-Sign Co-Sign Detail Recorded Client Recorded Date Recorded By Document 05/13/20 13:40 [id number] 05/13/20 13:42 05/13/20 13:40 Wound Center Nurse 2 5-right lower leg -Correct Patient No -Correct Side, Site, Position No -Correct Procedure No -Procedure Performed No -Post Debridement (cm) - Length 0 -Post Debridement (cm) - Width 0 -Post Debridement (cm) - Depth 0 -Total Square (Post) (cm) 0 -Area of Debridement (cm) - Length 0 -Area of Debridement (cm) - Width 0 -Total Square (Area) (cm) 0 -Wound/Ulcer Outcome Healed- Epithelialized Pain Scale: 0-10 Numeric Is Patient Pain Free? Yes WC - Nurse 3 - General Ulcer D/C NN Start: 05/07/20 11:55 Freq: Status: Discharge Protocol: Activity Type Activity Date Activity User E-Sign Co-Sign Detail Recorded Client Recorded Date Recorded By Document 05/07/20 11:55 MW [id number] 05/07/20 11:58 MW Document 05/13/20 13:57 BM [id number] 05/13/20 13:57 BMF 05/07/20 05/13/20 11:55 13:57 Vital Signs Temperature (97.8 F-99.1 F) 96.3 F L Temperature Source Temporal Pulse Rate (60-100) 84 Respiratory Rate (12-18) 17 Respiratory rate source Observation Oxygen Delivery Method Room Air Blood Pressure (90/60-120/80) 144/99 H Blood Pressure Mean (mm Hg) 114 Source Monitor Position Sitting Blood Pressure Location Left Arm Pain Scale: 0-10 Numeric Is Patient Pain Free? Yes Yes Teaching: Wound Center Compression Wraps & Stockings -Person Taught Patient -Teaching Method Discussion, Demonstration -Response to teaching Verbalize understanding Wound Care Nurse 3 Right -Lotion applied to leg before No compression wrap -Other CIRC-AID circaid Left -Lotion applied to leg before No compression wrap -Other CIRC-AID circaid Treatment Response Procedure Procedure Tolerated Well Tolerated Well WC - Visit Discharge Discharge Condition Stable Stable Ambulatory Status Ambulatory Ambulatory Transportation Private Auto Accompanied by SELF Medication Reconcilliation completed & No provided to patient/care provider Clinical Summary of Care Provided Yes Notes: PATIENT DID WOUND CARE DRESSING CHANGE TO RLE TODAY. PATIENT EDUCATED ON APPLICATION OF CIRC-AID COMPRESSION STOCKINGS TO BILATERAL LE. TOLERATED WELL. VOICED UNDERSTANDING. No debridement was completed today Assessment/Plan Assessment: 1. Nonhealing ulcer right lower leg. 2. History of revision replacement right knee. 3. History of right TKA infection. 4. Former smoker. 5. Sural nerve injury right posterior leg. 6. 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 7. Ulcer right posterior leg, healed. 8. Mild skin graft compromise right inferior knee, healed. Plan: Wound care to right lower leg ulcer She is healed today. She has obtained her circaids for compression and is wearing them. She likes how they compress her legs. She is now experiencing swelling around her knees and thighs. [facility] for [facility]ment. She will wear an FLOYD wrap on right knee and thigh. Encouraged to massage her scarring daily with lotion. She states that she has been using CeraVe lotion and she continues to be very dry. Instructed her to try vasoline or aquaphor massaged into the incisions to see if that will help with the dryness. Follow up as needed. Office Visits / Consults: [id number] OV L3 Est
== END 2020-05-13 14:01 | disposition home or self-care (01) ==
LOC: WC 13:15
PROVIDERS: PCP Family Medicine; Referring Provider Surgery; Visit Provider Surgery
DX: E11.621 Type 2 diabetes mellitus with foot ulcer (principal); L97.912 Non-pressure chronic ulcer of unspecified part of right lower leg with fat layer exposed; R60.0 Localized edema; I87.2 Venous insufficiency (chronic) (peripheral); Z87.891 Personal history of nicotine dependence; Z96.651 Presence of right artificial knee joint
CPT/HCPCS: 99211; 99213; G0463

== ENCOUNTER 2020-06-10 08:30 | Outpatient (RCR) | payer BC, SELFPAY ==
--- NOTE | 2020-05-27 14:38 | HP.OTEVAL_ITS ---
Patient's Visit Information RAJESH CARRENO is a 60 year old F, referred to Occupational Therapy by Yenny Tenorio, MERISSA, with a diagnosis of LE lymphedema. Date of Evaluation: 05/27/20 Occupational Therapist: Farideh Elizabeth, CHIQUISR/Saira, CHT - Subjective This 60 year old female was seen for OT eval with dx of lymphema. Pt states in 2017 she got a infection in her right TKR and was on antibiotics for a year- pt 2019 she had a knee replacement out and worked at decreasing infection. pt sates she had new knee placed September 06 2019 . pt states the knee incission did open up and she did have infection again. pt states she was back in for infection and dr. linares did muscle transfer and skin graft. pt states she continued to have wound care with hyperbaric chamber for 26 visits. jsut released from wound care last week. pt states she has been wearing her circaide compression alternatives to bilateral LE- but her leg swells at the knee and above- the stockenett she uses under the velcro compression alternatives rolls down and digs into her leg. pt would like to know what she can do to help her circulation and limit the sw elling. - Lymphedema (Circumferential Measure) Mid-foot: right 24cm left 25cm Ankle: right 27cm left 27cm Lower calf: right 28cm left 27cm Largest calf: right 41cm left 46cm Below knee: right 53cm left 43cm Above knee: right 52cm left 51cm - Lower Limb Functional Index Lower Extremity Functional Score: 28 - Goals Demonstrate a 20% reduction in edema by d/c: Yes Demonstrate adequate knowledge of self-massage by 2nd week: Yes Demonstrate adequate knowledge skin care/prec by 2nd week: Yes Demonstrate adequate knowledge therapeutic exercises by d/c: Yes Select approp compression garment w/donning/care/wear by d/c: Yes Voice need to replace compression garment every 4-6mo by dc: Yes - Rehabilitation General Assessment: pt demo with stage II lymphedema in BLE. pt is using compression alternative circ-aides and struggling with proper fit and swelling above compression devics. pt would benefit from skilled OT services 2-4 visits to ensure ed. on life long mtg of LE lymphedema and compression alternatives. pt agrees to POC Rehabilitation Potential: Good - Anticipated Interventions Education re Diagnosis, Education re Life-long lymphedema Management, Education re Skin Care and Precautions, Education re Self Massage Techniques, Education re Correct Donning Tech,Care&Wearing Sched Comp Garments, Home Program - Visit Plan Frequency: 1x/Week Duration: 4 Weeks TEXT: Thank you for the opportunity to evaluate your patient. For Medicare and Medicare HMO plans, please review the plan of care and approve it. It will need to be FAXED BACK to us at [phone] for Medicare purposes. Please let me know if there are questions or concerns regarding this plan of care. Physician Signature: Date:
--- NOTE | 2020-06-10 08:48 | HP.OTDCSUM ---
It has been my pleasure to treat RAJESH CARRENO under orders from Yenny Tenorio, DEBBIE-C, for the diagnosis of LE lymphedema for a total of 3 visit(s). Please see the following information for a summary of their discharge status. % Improvement: 60 Objective/Function: right below knee 46 down from 53cm. left was 43cm and now 40cm. pt states she feels she is mtg. her edema at this time with circaid compression from below knee and ira fit knee brace for her knee and demo a decrease in edema Patient Goals: Learn to Manage Lymphedema, Be More Independent in ADLS Demonstrate a 20% reduction in edema by d/c: Yes Demonstrate adequate knowledge of self-massage by 2nd week: Yes Demonstrate adequate knowledge skin care/prec by 2nd week: Yes Demonstrate adequate knowledge therapeutic exercises by d/c: Yes Select approp compression garment w/donning/care/wear by d/c: Yes Voice need to replace compression garment every 4-6mo by dc: Yes Plan: D/C Discharge Comments: pt demo good understanding of compression garments, lymph stim exercises, and self manual lymph drainage massage. pt met goals and is D/C with HEP. If there are questions or concerns regarding this patient's occupational therapy, please fell free to call me at [phone]. Thank you for the referral of this patient. Sincerely, Farideh Elizabeth, OTR/L, CHT
== END 2020-06-10 14:32 | disposition home or self-care (01) ==
LOC: OT 08:30
PROVIDERS: PCP Family Medicine; Referring Provider Nurse Practitioner Family; Visit Provider Nurse Practitioner Family
DX: I89.0 Lymphedema, not elsewhere classified (principal)
CPT/HCPCS: 97166; 97530

== ENCOUNTER → 2020-06-19 12:58 | Outpatient (CLI) | payer BC, SELFPAY ==
--- NOTE | 2020-06-19 13:46 | SP.MBSS_ITS ---
Modified Barium Swallow - Patient Information Study Date: 06/19/20 Study Time: 13:00 Direct Billable Minutes: 90 Total Minutes procedure & reportin Diagnosis: dysphagia, unspecified (R13.10) Referring Physician: Gustavo Ceballos Reason for Referral: The patient reports feeling of food getting stuck, occasional coughing, feeling of burning sensation in esophagus when eating and drinking. Patients denies any particular food avoidance but does report eating smaller more frequent meals. The patient reports history of acid reflux and is taking prescribed medication to treat. Medical History: The patient is a 60/F with past medical history including arthritis, kidney stones, and thyroid disease. Current Diet Ordered: regular textures/thin liquids Dentition: Partials Mental Status: WNL Respiratory Status: Oxygenating on Room Air - Study Findings Consistencies: Thin Liquid, [place] Thick Liquid, Honey Thick Liquid, Pudding, Cookie - Penetration-Aspiration Scale Penetration-Aspiration Scale: OBJECTIVE ASSESSMENT OF SWALLOW FUNCTION (QUANTITATIVE ? PER TRIAL): PENETRATION / ASPIRATION SCALE (REINA): 1 = does not enter airway 2 = enters airway/above vocal folds/ejected 3 = enters airway/above vocal folds/not ejected 4 = enters airway/contacts vocal folds/ejected 5 = enters airway/contacts vocal folds/not ejected 6 = enters airway/below vocal folds/ejected 7 = enters airway/below vocal folds/not ejected despite effort 8 = enters airway/below vocal folds/no effort - Penetration-Aspiration Scale Score Thin Liquid via teaspoon Result: 1= does not enter airway Thin Liquid via teaspoon Trial 2 Result: 1= does not enter airway Thin Liquid via small single sip from cup Result: 2= enter airway/above vocal folds/ejected Thin Liquid via large single sip from cup Comment: Due to patient positioning, clear image was unable to be obtained to determine tolerance of sequential sips. [place] Thick Liquid via large single sip from cup Result: 1= does not enter airway Honey Thick Liquid via large single sip from cup Result: 1= does not enter airway Comment: *image too dark when reviewing from slides; scoring completed during live assessment. Pudding via teaspoon Result: 1= does not enter airway Thin Liquid via single sip from straw Result: 2= enter airway/above vocal folds/ejected Thin Liquid via sequential sips from straw Result: 2= enter airway/above vocal folds/ejected Comment: penetration above vocal cords with ejection on 3rd swallow in sequence. Thin Liquid via small single sip from cup Trial 2 Result: 2= enter airway/above vocal folds/ejected Thin Liquid via large single sip from cup Trial 2 Result: 2= enter airway/above vocal folds/ejected - Oral Phase Labial Seal: No Labial Escape Tongue Control During Bolus Hold: Posterior escape of less than half of bolus Bolus Preparation/Mastication: Timely and efficient chewing and mashing Bolus Transport/Lingual Motion: Brisk tongue motion Oral Residue: Trace residue lining oral structures - Pharyngeal Phase Initiation of Pharyngeal Swallow: Bolus head in valleculae Soft Palate Elevation: No bolus between soft palate and pharyngeal wall Laryngeal Elevation: Partial superior movement thyroid cart/partial apprx aryt- epig petiole Anterior Hyoid Excursion: Partial anterior movement Epiglottic Movement: Complete inversion Laryngeal Vestibule Closure at Height of Swallow: Incomplete; narrow column of air/contrast in laryngeal vestibule Pharyngeal Stripping Wave: Present - complete Pharyngoesophageal Segment Opening: Complete distension and complete duration; no obstruction of flow - difficult to fully determine due to patient's body habitus Tongue Base Retraction: Trace column of contrast between tongue base & post. pharyngeal wall Pharyngeal Residue: Trace residue within or on pharyngeal structures - Diagnosis/Impression Diagnosis: mild oropharyngeal dysphagia (R13.12) Impression: The patient trialed thin liquid barium in various quantities. The patient was found to have penetration of thin liquid above the vocal cords with ejection with single small sips through larger sequential sips. No aspiration was found on this date and time. Occasional premature spillage to the vallecula found prior to swallow initiation. The patient demonstrated effective mastication of [place] shortbread cookie with adequate oral clearance. No further skilled ST intervention recommended at this time. Given patients described symptoms (i.e. burning sensation in esophagus and feeling of food wanting to come back up) it is recommended patient follow up with GI to determine further evaluation needs in this area. Pt advised also to follow up with PCP for MBS study results. - Recommendations Diet: Regular Textures, Thin Liquids Compensatory Strategies: Small Bites, Small Sips, Slow Rate, Sitting upright, Remain sitting upright for 30 minutes after PO intake - upright 60 minutes after meals Recommend Repeat Modified Barium Swallow: TBD Need for Skilled Speech Therapy Services: No Recommended Referrals: GI Consult Education Completed: 1. Described result of evaluation., 2. Pt understands evaluation & agrees with goals and treatment plan. - Status Active ST Patient: Active - Contact Information [facility] Speech Therapy:: Mary Kay Dupont MA, CCC-SCRATCH FINISHER [place] [phone] [email or web address]
== END ==
PROVIDERS: PCP Family Medicine; Referring Provider Family Medicine; Visit Provider Family Medicine
DX: T17.308A Unspecified foreign body in larynx causing other injury, initial encounter (principal)
CPT/HCPCS: 74230; 92611

== ENCOUNTER → 2020-06-26 07:43 | Outpatient (CLI) | payer BC, SELFPAY ==
--- NOTE | 2020-06-21 07:40 | RAD_ITS ---
STUDY: X-RAY - ABDOMEN/PELVIS REASON FOR EXAM: Female, 60 years old. Unspecified foreign body in larynx causing other i TECHNIQUE: Single AP view of the abdomen / pelvis. COMPARISON: None. FINDINGS: Oral contrast is seen throughout the colon. Contrast is also seen within sigmoid diverticula. Patient status post cholecystectomy. Normal soft tissue structures. Prior laminectomy and fusion at the L4-L5 level. RAD/Abdomen Single View IMPRESSION: Oral contrast is seen throughout the colon. Electronically Signed: Zafar Abernathy MD at 8:32 EDT , Service support ,
--- NOTE | 2020-06-26 07:50 | RAD_ITS ---
STUDY: AIR CONTRAST UPPER GI SERIES REASON FOR EXAM: Female, 60 years old. FOREIGN OBJECT FLUOROSCOPY TIME (if supplied): (1:00) minutes/seconds TECHNIQUE: SINGLE CONTRAST AND AIR CONTRAST FLUOROSCOPIC IMAGES. COMPARISON: None. FINDINGS: The cervical esophagus demonstrates normal motility without aspiration. There is no stricture or extrinsic mass effect. No intraluminal polypoid mass is identified. The thoracic esophagus distends well without stricture or mucosal fold thickening. No mucosal ulcerations are identified. There is no extrinsic mass effect. There are no diverticula. No hiatal hernia or gastroesophageal reflux was identified. The patient ingested a 12 mm tablet of barium. The tablet is trapped at the gastroesophageal junction. The stomach distends well without mucosal fold thickening or mucosal ulceration. There is no intraluminal mass. The duodenal bulb is freely distensible without deformity or ulceration. The duodenal sweep is normal in position and caliber. RAD/Upper GI w/BA Swallow IMPRESSION: The patient ingested a 12 mm tablet of barium. The tablet is trapped at the gastroesophageal junction. The remainder of the examination is unremarkable. Electronically Signed: Zafar Abernathy MD at 10:46 EDT , Service support ,
== END ==
PROVIDERS: PCP Family Medicine; Referring Provider Family Medicine; Visit Provider Family Medicine
DX: T17.308A Unspecified foreign body in larynx causing other injury, initial encounter (principal)
CPT/HCPCS: 74018; 74246

== ENCOUNTER → 2020-07-04 10:46 | Outpatient (CLI) | payer BC, SELFPAY ==
--- NOTE | 2020-07-04 10:47 | CT_ITS ---
STUDY: CT BRAIN WITHOUT CONTRAST REASON FOR EXAM: Female, 60 years old. TRAUMATIC RUPTURE OF LEFT EAR DRUM/ -- TRAUMATIC INJURY OF HEAD/INITIAL ENCOUNTER RADIATION DOSAGE (If Supplied By Facility): CTDIvol = ( 44.99 ) mGy, DLP = ( 812.98 ) mGycm TECHNIQUE: Transaxial CT imaging of the brain was performed without administration of intravenous contrast material. Individualized dose optimization techniques were used for this CT. COMPARISON: No relevant priors. FINDINGS: Normal soft tissue structures. Normal calvarium. Normal size ventricles and extra-axial spaces for the patient''s age. Normal white matter tracts of the cerebral hemispheres. Normal basal ganglia and thalami. Normal brainstem. Normal cerebellum. There is no intracranial hemorrhage. There are no findings of an acute ischemic infarction. Normal visualized paranasal sinuses. CT/Brain/Head without Contrast IMPRESSION: Normal unenhanced CT scan of the brain. Electronically Signed: Zafar Abernathy MD at 11:39 EDT , Service support ,
== END ==
PROVIDERS: PCP Family Medicine; Visit Provider Physician Assistant
DX: S09.22XA Traumatic rupture of left ear drum, initial encounter (principal); S09.90XA Unspecified injury of head, initial encounter
CPT/HCPCS: 70450

== ENCOUNTER 2020-08-01 13:45 | Outpatient (RCR) | payer BC, SELFPAY ==
[2020-07-25 14:04] VITALS: TEMP 36.4; BMI 45.3
--- NOTE | 2020-07-25 15:50 | PCM.WC.HP ---
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 Status: Chronic Code(s): L97.912 - Non-pressure chronic ulcer of unspecified part of right lower leg with fat layer exposed Comment: Nonhealing ulcer right lower leg Nonhealing ulcer right inferior knee by tibial tubercle (2) Diabetes mellitus Status: Chronic Code(s): E11.9 - Type 2 diabetes mellitus without complications (3) Edema leg Status: Chronic Code(s): R60.0 - Localized edema (4) History of DVT (deep vein thrombosis) Status: Chronic Code(s): Z86.718 - Personal history of other venous thrombosis and embolism (5) History of Graves' disease Status: Chronic Code(s): Z86.39 - Personal history of other endocrine, nutritional and metabolic disease (6) History of right knee joint replacement Status: Chronic Code(s): Z96.651 - Presence of right artificial knee joint (7) Hx of total knee replacement Status: Chronic Qualifiers: Code(s): Z96.659 - Presence of unspecified artificial knee joint Comment: right (8) Hypothyroidism Status: Chronic Qualifiers: Code(s): E03.9 - Hypothyroidism, unspecified (9) Renal insufficiency Status: Chronic Code(s): N28.9 - Disorder of kidney and ureter, unspecified (10) Venous (peripheral) insufficiency Status: Chronic Code(s): I87.2 - Venous insufficiency (chronic) (peripheral) History of Present Illness Date of Service: 07/25/20 Chief Complaint: Nonhealing ulcer right lower leg. History of Wound: This is a 60-year-old white female who presents to the office today with complaint of nonhealing wound to right lower extremity. She has a complicated past medical history as listed above significant for PVD, prior knee replacement with chronic infection on doxycycline, obesity, hypothyroidism, hypertension, and prior tobacco abuse. The patient states that approximately a week ago she developed a blister on her right lower extremity which opened up. It has been open and draining, she has been using compression stockings inconsistently. She denies any any systemic or localized signs of infection at this time. Denies any other acute concerns. Past medical, family, and social history reviewed and not pertinent to the current visit and all other systems reviewed and negative with exception of those listed above. Past Medical History Past Medical History: Chronic Problems Venous (peripheral) insufficiency (Chronic) Chronic ulcer of right leg (Chronic) Diabetes mellitus with skin ulcer (Chronic) Nonhealing surgical wound (Chronic) Former smoker (Chronic) History of right knee joint replacement (Chronic) Infection and inflammatory reaction due to internal right knee prosthesis, sequela (Chronic) Nonhealing ulcer of right lower extremity with fat layer exposed (Chronic) Nonhealing ulcer right lower leg Nonhealing ulcer right inferior knee by tibial tubercle History of DVT (deep vein thrombosis) (Chronic) Septic arthritis of knee, right (Chronic) Hx of total knee replacement (Chronic) right Restless leg (Chronic) RENNY (obstructive sleep apnea) (Chronic) Hypothyroidism (Chronic) Diverticulosis of colon without diverticulitis (Chronic) Depression (Chronic) Postphlebitic syndrome with inflammation (Chronic) Lumbar disc disease (Chronic) History of Graves' disease (Chronic) Diabetes mellitus (Chronic) Renal insufficiency (Chronic) Presence of IVC filter (Chronic) Obesity (Chronic) Edema leg (Chronic) Leg swelling (Chronic) DVT of lower extremity (deep venous thrombosis) (Chronic) Surgical History: appendectomy, cholecystectomy, total knee arthroplasty - 2011 on the right and 2014 on the left., tonsillectomy, - - BL thumb surgery. bilateral total knee replacement surgery, 2011 on the right and 2014 on the left. cholecystectomy. incisional hernia repair. Lumbar disc surgery November 2016. endothermal ablation of superficial veins in the left lower extremity. IVC filter. The patient is a Ab0. Left total knee replacement arthroplasty utilizing [employer] size 5 cemented - 06/04/14. Irrigation debridement right knee with complete synovectomy and tibial component revision - 01/26/17. 1. Right knee irrigation debridement 1 component revision/polyethylene exchange. 2. Right knee superficial irrigation debridement of incisional ulcerations/sinus tract ?2, 1 cm x 1 cm each - 03/05/17. edure Performed:: Removal of total knee replacement placement articulating antibiotic spacer. Placement of nonbiodegradable antibiotic delivery system - 01/28/19. Removal of articulating antibiotic spacer and intramedullary antibiotic dowel rods with placement of new articulating antibiotic spacer and intramedullary antibiotic dowel rods - 05/19/19. Procedure Performed:: Removal articulating antibiotic spacer, revision right total knee replacement. Removal nonbiodegradable antibiotic delivery systems - 09/06/19. Allergies/Adverse Reactions: Allergies hydrocodone bitartrate [From Lortab] Allergy (Intermediate, Verified 09/06/19 07:31) Other lips swell, ataxia etodolac Allergy (Verified 09/06/19 07:31) Unknown misoprostol Allergy (Verified 09/06/19 07:31) Unknown celecoxib Adverse Reaction (Intermediate, Verified 09/06/19 07:31) Other heart palpitations diclofenac [Diclofenac] Adverse Reaction (Mild, Verified 09/06/19 07:31) Abd cramps/diarrhea ketorolac tromethamine [From Toradol] Adverse Reaction (Mild, Verified 09/06/19 07:31) Other balance issues metoclopramide HCl [From Reglan] Adverse Reaction (Mild, Verified 09/06/19 07:31) Other worsens restless leg atorvastatin [From Lipitor] Adverse Reaction (Verified 09/06/19 07:31) Other FACE SPASMS clindamycin Adverse Reaction (Verified 09/06/19 07:31) Mucosal lesions Home Medications: Ambulatory Orders Medication Instructions Recorded Levothyroxine [Synthroid] 175 mcg PO DAILY 09/01/13 Omeprazole [Prilosec] 20 mg PO DAILY 12/13/16 Cholecalciferol (Vitamin D3) 5,000 unit PO DAILY@1200 01/25/17 [Vitamin D3] [place]-3 Fatty Acids/Fish Oil [Fish 2,000 mg PO LUNCH 03/21/18 Oil 1,000 mg Capsule] Gabapentin 800 mg PO BID 08/01/18 Gabapentin [Neurontin] 1,200 mg PO QHS 08/01/18 Lisinopril [Zestril] 10 mg PO LUNCH 08/01/18 Pramipexole Di-HCl [Pramipexole 1 mg PO LUNCH 08/01/18 Dihydrochloride] Pramipexole Di-HCl [Pramipexole 1.5 tab PO QHS 08/01/18 Dihydrochloride] Venlafaxine HCl [Effexor Xr] 1 tab PO DAILY 08/01/18 Venlafaxine HCl [Venlafaxine HCl 1 tab PO DAILY 08/01/18 ER] Aspirin [Aspir-Low] 81 mg PO LUNCH 05/02/19 Famotidine [Pepcid] 40 mg PO QHS 05/02/19 Ferrous Sulfate 325 mg PO DAILY 08/30/19 Ascorbic Acid [Vitamin C] 500 mg PO LUNCH 11/28/19 Doxycycline 100 mg PO BID 11/28/19 Montelukast [Singulair] 10 mg PO QHS 11/28/19 Pramipexole Di-HCl [Mirapex] 0.5 mg PO DAILY 11/28/19 Acetaminophen [Tylenol] 1,000 mg PO Q8 tab 12/04/19 Senna/Docusate Sodium [Senokot-S] 2 tab PO BID tab 12/04/19 - Family History Maternal Heart Disease, Hypertension Paternal Heart Disease, Hypertension Sibling Cancer, Diabetes, Hypertension, - Smoking Status: Former smoker Review of Systems Constitutional: Denies: Chills, Fever, Weight Change Eyes: Denies: Pain, Vision Change HEENT: Denies: Difficulty Hearing, Difficulty Swallowing, Sinus Congestion Cardiovascular: Denies: Chest Pain, Palpitations Respiratory: Denies: Cough, Shortness of Breath Gastrointestinal: Denies: Diarrhea, Nausea, Vomiting Genitourinary: Denies: Dysuria, Hematuria Skin: Reports: Wounds - See HPI Endocrine: Denies: Heat/ Cold Intolerance, Polydipsia, Polyuria Hematologic/ Lymphatic: Denies: Easy Bruising, Easy Bleeding - Physical Exam Vital Signs Temp 97.5 F L 07/25/20 14:04 General: Alert, Oriented x3, Cooperative, No apparent distress HEENT: Atraumatic Oral: Moist Mucosa Lungs: Clear to auscultation, Normal air movement Cardiovascular: Regular rate, Regular Rhythm Extremities: No clubbing, No cyanosis, Edema - Bilateral lower extremity edema +2 Skin: Ulcer/ Wound - See nursing documentation, right lower extremity ulcer with small amount of slough, no signs of obvious infection at this time Wound Measurements and Assessment WC - Nurse 1 - General Ulcer Measurement Start: 07/25/20 14:04 Freq: Status: Active Protocol: Activity Type Activity Date Activity User E-Sign Co-Sign Detail Recorded Client Recorded Date Recorded By Document 07/25/20 14:04 ISAAC [id number] 07/25/20 14:15 ISAAC 07/25/20 14:04 Wound Center Nurse 1 [Ulcer Assessment] #6 Right LE Cluster -Current Size (cm) - Length 2 -Current Size (cm) - Width 0.6 -Current Size (cm) - Depth 0.1 -Total Square Cm 1.2 -Exudate Amt Small -Exudate Type Serosanguineous -Wound Margin Distinct, Outline Attached -Granulation Amt Large (67-100%) -Granulation Quality Red -Necrosis Amt None Present (0 %) -Texture (Aileen-wound Skin Appearance) Assessed, Scarring -Moisture (Aileen-wound Skin Appearance Assessed, ) Weeping -Color (Aileen-wound Skin Appearance) No Abnormality, Assessed -Temperature (Aileen-wound Skin No Abnormality Appearance) (Pt Warm) -Tenderness on Palpation (Aileen-wound No Skin Appearance) -Ulcer Cleansing Rinsed/ Irrigated with Saline -Foul Odor after Cleansing No -Anesthetic Used 4% Lidocaine Solution [Edema Assessment] -Right Calf (cm) 47 -Right Ankle (cm) 27.5 -Left Calf (cm) 44 -Left Ankle (cm) 29 RAF - Nurse 2 - General Ulcer CM Notes Start: 07/25/20 14:04 Freq: Status: Active Protocol: Activity Type Activity Date Activity User E-Sign Co-Sign Detail Recorded Client Recorded Date Recorded By Document 07/25/20 14:36 MW [id number] 07/25/20 14:38 MW 07/25/20 14:36 Wound Center Nurse 2 [Procedure/Treatment] #6 Right LE Cluster -Time 14:35 -Correct Patient Yes -Correct Side, Site, Position Yes -Correct Procedure Yes -Procedure Performed Yes -Type of Procedure Debridement -Clinical Debridement Subcutaneous -Tissue Removed Subcutaneous -Post Debridement (cm) - Length 0.3 -Post Debridement (cm) - Width 0.5 -Post Debridement (cm) - Depth 0.1 -Total Square (Post) (cm) 0.15 -Area of Debridement (cm) - Length 0.3 -Area of Debridement (cm) - Width 0.5 -Total Square (Area) (cm) 0.15 -Tunneling No -Undermining/Tunneling No -Circular Undermining No -Wound/Ulcer Outcome Not Healed -Ulcer Cleansing Rinsed/ Irrigated with Saline -Foul Odor after Cleansing No -Bioengineered Tissue No -Bleeding Controlled with Pressure -Offloading No -Treatment Response Procedure Tolerated Well -Debridement - Subq, 1st 20sq cm Yes [See Physician Procedure note for Specifics] Pain Scale: 0-10 Numeric [Pain] -Is Patient Pain Free? Yes - Nurse 3 - General Ulcer D/C NN Start: 07/25/20 14:04 Freq: Status: Active Protocol: Activity Type Activity Date Activity User E-Sign Co-Sign Detail Recorded Client Recorded Date Recorded By Document 07/25/20 14:50 DL [id number] 07/25/20 14:51 DL 07/25/20 14:50 Wound Care Nurse 3 [Wound Dressing] #6 Right LE Cluster -Ulcer Cleansing Rinsed/ Irrigated with Saline -Foul Odor after Cleansing No -Primary Dressing Applied NonAdherent Contact Layer, Promogran Tayla Matter -Primary Dressing Covered/Secured Dry Gauze & with Roll Gauze, Secured with Tape -Promogran Tayla Matter 1 [Post Procedure Tolerated] -Treatment Response Procedure Tolerated Well Pain Scale: 0-10 Numeric [Pain] -Is Patient Pain Free? Yes WC - Visit Discharge [Visit Discharge Information] -Discharge Condition Stable -Ambulatory Status Ambulatory -Transportation Private Auto -Notes: Pt to wear her compression stockings daily Neurological: Neuro grossly intact Psych/Mental Status: Normal Affect, Appropriate, Alert and oriented to time, place, person, mood and affect Debridement Note Post-Debridement Measurements/Treatment WC - Nurse 2 - General Ulcer CM Notes Start: 07/25/20 14:04 Freq: Status: Active Protocol: Activity Type Activity Date Activity User E-Sign Co-Sign Detail Recorded Client Recorded Date Recorded By Document 07/25/20 14:36 MW [id number] 07/25/20 14:38 MW 07/25/20 14:36 Wound Center Nurse 2 #6 Right LE Cluster -Time 14:35 -Correct Patient Yes -Correct Side, Site, Position Yes -Correct Procedure Yes -Procedure Performed Yes -Type of Procedure Debridement -Clinical Debridement Subcutaneous -Tissue Removed Subcutaneous -Post Debridement (cm) - Length 0.3 -Post Debridement (cm) - Width 0.5 -Post Debridement (cm) - Depth 0.1 -Total Square (Post) (cm) 0.15 -Area of Debridement (cm) - Length 0.3 -Area of Debridement (cm) - Width 0.5 -Total Square (Area) (cm) 0.15 -Tunneling No -Undermining/Tunneling No -Circular Undermining No -Wound/Ulcer Outcome Not Healed -Ulcer Cleansing Rinsed/ Irrigated with Saline -Foul Odor after Cleansing No -Bioengineered Tissue No -Bleeding Controlled with Pressure -Offloading No -Treatment Response Procedure Tolerated Well -Debridement - Subq, 1st 20sq cm Yes Pain Scale: 0-10 Numeric Is Patient Pain Free? Yes WC - Nurse 3 - General Ulcer D/C NN Start: 07/25/20 14:04 Freq: Status: Active Protocol: Activity Type Activity Date Activity User E-Sign Co-Sign Detail Recorded Client Recorded Date Recorded By Document 07/25/20 14:50 DL [id number] 07/25/20 14:51 DL 07/25/20 14:50 Wound Care Nurse 3 #6 Right LE Cluster -Ulcer Cleansing Rinsed/ Irrigated with Saline -Foul Odor after Cleansing No -Primary Dressing Applied NonAdherent Contact Layer, Promogran Tayla Matter -Primary Dressing Covered/Secured with Dry Gauze & Roll Gauze, Secured with Tape -Promogran Tayla Matter 1 Treatment Response Procedure Tolerated Well Pain Scale: 0-10 Numeric Is Patient Pain Free? Yes WC - Visit Discharge Discharge Condition Stable Ambulatory Status Ambulatory Transportation Private Auto Notes: Pt to wear her compression stockings daily Wound debrided: Right lower extremity ulcer Laterality: Right Type of Debridement: Excisional debridement Anesthesia Used: 5% Lidocaine Gel Depth: in the subcutaneous layer Percentage of wound debrided: 100 Instrument Used: 5mm curette Tissue Removed: Slough and devitalized tissue Severity: Fat Layer Exposed Amount of bleeding with debridement: Mild Bleeding Controlled with: Pressure Patient tolerated procedure well Assessment/Plan Active Problems Venous (peripheral) insufficiency (Chronic) History of right knee joint replacement (Chronic) Nonhealing ulcer of right lower extremity with fat layer exposed (Chronic) Nonhealing ulcer right lower leg Nonhealing ulcer right inferior knee by tibial tubercle History of DVT (deep vein thrombosis) (Chronic) Hx of total knee replacement (Chronic) right Hypothyroidism (Chronic) History of Graves' disease (Chronic) Diabetes mellitus (Chronic) Renal insufficiency (Chronic) Edema leg (Chronic) Assessment: 1. Nonhealing ulcer right lower leg. 2. History of revision replacement right knee. 3. History of right TKA infection. 4. Former smoker. 5. Sural nerve injury right posterior leg. Plan: The patient was seen and examined at the wound center today and was updated on the plan of care. A subcutaneous debridement was performed today. The patient tolerated the procedure well. The patients wound care will consist of: moistened Tayla cover with Adaptic gauze and compression stockings for compression, change daily. Wound cultures held. Baseline bloodwork held. Vascular studies ordered. Patient educated on the importance of diet on wound healing and instructed to increase protein and vitamin C intake. Patient verbalized understanding. Patient will follow up at wound healing center in one week or sooner if needed. This note was generated with [employer] dictation software. It may contain incorrect words, spelling, and punctuation that were not noted in checking the note before signing. I have spent 35 minutes today reviewing labs, records, and history. Time includes coordinating care, interpretation of tests, and counseling the patient/family. This also includes time I spent with the patient for exam, treatment plan, and education as well as documenting clinical information in the electronic health record. Office Visits / Consults: [id number] OV L4 Est [id number]: [id number] [place] subq tissue 20 sq cm/<
[2020-08-01 13:58] VITALS: BP 150/71; PULSE 91; RESP 22; TEMP 36.2; BMI 45.3
--- NOTE | 2020-08-02 14:53 | PN.PCM_ITS ---
History of Present Illness Date of Service: 08/01/20 Chief Complaint: Nonhealing ulcer right lower leg. History of Wound: This is a 60-year-old white female who presents to the office today with complaint of nonhealing wound to right lower extremity. She has a complicated past medical history as listed above significant for PVD, prior knee replacement with chronic infection on doxycycline, obesity, hypothyroidism, hypertension, and prior tobacco abuse. The patient states that approximately a week ago she developed a blister on her right lower extremity which opened up. It has been open and draining, she has been using compression stockings inconsistently. She denies any any systemic or localized signs of infection at this time. Denies any other acute concerns. Past medical, family, and social history reviewed and not pertinent to the current visit and all other systems reviewed and negative with exception of those listed above. Subjective Subjective: The site is now healed, patient denies any concerns at this time, she has been more compliant with her compression and also her sodium restriction Objective Data Objective Data Vital Signs: Vital Signs Temp Pulse Resp BP 97.2 F L 91 22 H 150/71 H 08/01/20 13:58 08/01/20 13:58 08/01/20 13:58 08/01/20 13:58 Body Mass Index (BMI) 45.3 Finger Stick Blood Glucose 193 Assessment & Plan Assessment/Plan (1) Chronic ulcer of right leg: Status: Chronic Code(s): L97.919 - Non-pressure chronic ulcer of unspecified part of right lower leg with unspecified severity (2) Venous (peripheral) insufficiency: Status: Chronic Code(s): I87.2 - Venous insufficiency (chronic) (peripheral) (3) Diabetes mellitus with skin ulcer: Status: Chronic Code(s): E11.622 - Type 2 diabetes mellitus with other skin ulcer; L98.499 - Non-pressure chronic ulcer of skin of other sites with unspecified severity Plan: The patient was seen and examined at the wound healing center today and updated on the plan of care, her wound is healed without any signs of infection at this time. Educated patient on the importance of remaining compliant with her compression and also with reducing her salt intake. Patient has been advised to elevate lower extremities as much as possible. Elevation is to be implemented during daytime hours and legs are to be elevated to heart level, or higher, as much as possible. Prolonged idle sitting has been discouraged. Activity and ambulation has been encouraged. Patient will be discharged from the wound healing center and follow-up if new wounds occur. This note was generated with [employer] dictation software. It may contain incorrect words, spelling, and punctuation that were not noted in checking the note before signing. I have spent 25 minutes today reviewing labs, records, and history. Time includes coordinating care, interpretation of tests, and counseling the p atient/family. This also includes time I spent with the patient for exam, treatment plan, and education as well as documenting clinical information in the electronic health record. Charges/Coding Visit Charges Office Visits / Consults: [id number] OV L3 Est Physical Exam Const alert, oriented x3, no apparent distress, healthy appearing and well nourished General Appearance: cooperative Exam Limitations: no limitations HEENT normocephalic Head and Scalp: normal to inspection Mouth: oral and palatal mucosa normal Eyes General Eye: normal appearance of both eyes Resp normal respiratory effort, normal air movement and no use of accessory muscles Effort and Inspection: able to speak in complete sentences Auscultation: clear to auscultation bilaterally Cardio regular rate, regular rhythm, S1 normal heart sound, S2 normal heart sound, no murmurs and peripheral pulses 2+ throughout Palpation: normal PMI Rate: regular rate Heart Sounds: S1 normal and S2 normal GI normal to inspection, nondistended, normoactive bowel sounds, soft to palpation, non-tender and non-distended Palpation: soft Extremity normal to inspection and full ROM General Extremity: normal exam except as noted Skin Wound Narrative: Wound to right lower extremity is now healed without any signs of infection at this time, she does have chronic venous changes present bilaterally with +1 pitting bilateral lower extremity edema, no debridement done today as wound is healed Neuro oriented x3 and moves all extremities Sensorium / Orientation: awake, alert, oriented to person, oriented to place and oriented to time Psych mental status grossly normal, thought process normal and denies hallucinations Appearance: grossly normal Attitude: calm Activity / Motor Behavior: appropriate eye contact Speech: normal speech Thought Process: normal thought process Thought Content: normal thought content Attention / Concentration: attention grossly intact Insight: insight good Judgement: judgement good Debridement Note Debridement Note Post-Debridement Measurements and Additional Note: Post-Debridement Measurements/Treatment WC - Nurse 2 - General Ulcer CM Notes Start: 07/25/20 14:04 Freq: Status: Active Protocol: Activity Type Activity Date Activity User E-Sign Co-Sign Detail Recorded Client Recorded Date Recorded By Document 07/25/20 14:36 MW [id number] 07/25/20 14:38 MW 07/25/20 14:36 Wound Center Nurse 2 #6 Right LE Cluster -Time 14:35 -Correct Patient Yes -Correct Side, Site, Position Yes -Correct Procedure Yes -Procedure Performed Yes -Type of Procedure Debridement -Clinical Debridement Subcutaneous -Tissue Removed Subcutaneous -Post Debridement (cm) - Length 0.3 -Post Debridement (cm) - Width 0.5 -Post Debridement (cm) - Depth 0.1 -Total Square (Post) (cm) 0.15 -Area of Debridement (cm) - Length 0.3 -Area of Debridement (cm) - Width 0.5 -Total Square (Area) (cm) 0.15 -Tunneling No -Undermining/Tunneling No -Circular Undermining No -Wound/Ulcer Outcome Not Healed -Ulcer Cleansing Rinsed/ Irrigated with Saline -Foul Odor after Cleansing No -Bioengineered Tissue No -Bleeding Controlled with Pressure -Offloading No -Treatment Response Procedure Tolerated Well -Debridement - Subq, 1st 20sq cm Yes Pain Scale: 0-10 Numeric Is Patient Pain Free? Yes - Nurse 3 - General Ulcer D/C NN Start: 07/25/20 14:04 Freq: Status: Active Protocol: Activity Type Activity Date Activity User E-Sign Co-Sign Detail Recorded Client Recorded Date Recorded By Document 07/25/20 14:50 DL [id number] 07/25/20 14:51 DL Document 08/01/20 14:31 DL [id number] 08/01/20 14:34 DL 07/25/20 08/01/20 14:50 14:31 Wound Care Nurse 3 #6 Right LE Cluster -Ulcer Cleansing Rinsed/ Irrigated with Saline -Foul Odor after Cleansing No No -Primary Dressing Applied NonAdherent Contact Layer, Promogran Tayla Matter -Primary Dressing Covered/Secured with Dry Gauze & Dry Gauze,Dry Roll Gauze, Gauze & Roll Secured with Gauze Tape -Other Covering CircAid -Promogran Tayla Matter 1 Treatment Response Procedure Procedure Tolerated Well Tolerated Well Pain Scale: 0-10 Numeric Is Patient Pain Free? Yes Yes WC - Visit Discharge Discharge Condition Stable Stable Ambulatory Status Ambulatory Ambulatory Transportation Private Auto Private Auto Notes: Pt to wear her Healed/ compression Discharged. stockings daily
== END 2020-08-02 23:59 ==
LOC: WC 13:45
PROVIDERS: PCP Family Medicine; Visit Provider Nurse Practitioner Family
DX: E11.622 Type 2 diabetes mellitus with other skin ulcer (principal); I87.2 Venous insufficiency (chronic) (peripheral); L97.912 Non-pressure chronic ulcer of unspecified part of right lower leg with fat layer exposed; R60.0 Localized edema; Z86.718 Personal history of other venous thrombosis and embolism; Z86.39 Personal history of other endocrine, nutritional and metabolic disease; E03.9 Hypothyroidism, unspecified; E11.51 Type 2 diabetes mellitus with diabetic peripheral angiopathy without gangrene; E66.9 Obesity, unspecified; F32.9 Major depressive disorder, single episode, unspecified; G47.33 Obstructive sleep apnea (adult) (pediatric); I10 Essential (primary) hypertension; Z79.82 Long term (current) use of aspirin; Z82.49 Family history of ischemic heart disease and other diseases of the circulatory system; Z83.3 Family history of diabetes mellitus; Z87.891 Personal history of nicotine dependence; Z88.5 Allergy status to narcotic agent; Z88.8 Allergy status to other drugs, medicaments and biological substances; Z90.49 Acquired absence of other specified parts of digestive tract; Z96.653 Presence of artificial knee joint, bilateral
CPT/HCPCS: 11042; 99213; G0463

== ENCOUNTER 2020-08-09 10:41 | Outpatient (RCR) | payer BC, SELFPAY ==
[2020-08-03 00:57] VITALS: BP 150/71; PULSE 91; RESP 22; TEMP 36.2
--- NOTE | 2020-08-09 10:43 | ART_ITS ---
Reason For Study: PAD Procedure A bilateral lower extremity continuous wave Doppler with analog waveform analysis,segmental pressures,and ankle brachial indexes without exercise. Left Segmental Pressures Left brachial= 132mmHg. Left posterior tibial artery = 151mmHg. Left dorsalis pedis artery = 132mmHg. Left digit = 75 mmHg. Right Segmental Pressures Right brachial= 120mmHg. Right posterior tibial artery = 133mmHg. Right dorsalis pedis artery = 117mmHg. Right digit = 94 mmHg. Indices The right ankle brachial index by the posterior tibial artery is 1.01. The right ankle brachial index by the dorsalis pedis is 0.89. The right digital-brachial index is 0.71. The left ankle brachial index by the posterior tibial artery is 1.14. The left ankle brachial index by the dorsalis pedis is 1.00. The left digital-brachial index is 0.57. VL/Lower Ext Art Exam w/o Exercis Interpretation Summary Triphasic Doppler waveforms are noted at ankle level bilaterally. Pulse-volume recordings appear satisfactory at all levels bilaterally, including low-thigh, calf, ankle,and di gital levels. Resting ankle-brachial indices are normal bilaterally. The right digital-brachial index is normal. The left digital-brachial index is mildly diminished. Arterial flow appears normal at ankle level bilaterally, and at digital level o n the right. There is evidence of mild, distal, small-vessel arterial occlusive disease at digital le javier on the left. Ordering Physician: Rasheed Higuera Referring Physician: Gustavo Ceballos Performed By: Page Oshea RDCS/RVT
== END 2020-09-02 23:59 ==
LOC: CVS 10:41
PROVIDERS: PCP Family Medicine; Visit Provider Nurse Practitioner Family
DX: I73.9 Peripheral vascular disease, unspecified (principal)
CPT/HCPCS: 93923

== ENCOUNTER → 2020-11-22 14:54 | Outpatient (CLI) | payer BC, SELFPAY ==
--- NOTE | 2020-11-22 14:56 | BI_ITS ---
MAMMOGRAPHY - BILATERAL SCREENING REASON FOR EXAM: Female, 60 years old. Routine annual screening examination. PERTINENT HISTORY: Non-contributory. TECHNIQUE: Digital bilateral breast william (3D mammographic acquisition) in the CC and MLO projections. 2-D mediolateral oblique (MLO) and craniocaudad (CC) views of both breasts were obtained. CAD: Full Field Digital Mammography with Computer Added Detection was performed. COMPARISON: Comparison is made with prior study 11/22/2019 and 06/22/2018. FINDINGS: Breast Composition: There are scattered areas of fibroglandular density. There are no dominant masses or suspicious calcifications. Stable benign-appearing bilateral axillary lymph nodes. No other significant abnormalities are identified. There has been no significant change since the prior study. BI/SCRN MAMM (CAD)W/WILLIAM BILAT IMPRESSION: Stable bilateral screening mammogram. Yearly follow-up mammogram recommended. (A) ASSESSMENT CATEGORY: BIRADS Category 2: Benign. A letter regarding these results will be sent to the patient by the facility within 30 days. Approximately 10% of breast cancers are not detected by mammography. A normal mammogram should not delay biopsy of a clinically suspicious abnormality. [id number] Electronically Signed: Zafar Abernathy MD at 15:35 EDT , Service support ,
== END ==
PROVIDERS: PCP Family Medicine; Referring Provider Student in an Organized Health Care Education/Training Program; Visit Provider Student in an Organized Health Care Education/Training Program
DX: Z12.31 Encounter for screening mammogram for malignant neoplasm of breast (principal)
CPT/HCPCS: 77063; 77067

== ENCOUNTER → 2021-01-27 13:56 | Outpatient (CLI) | payer BC, SELFPAY ==
--- NOTE | 2021-01-27 13:58 | VDLE_ITS ---
Reason For Study: R/O DVT RIGHT LEFT GSV is normal. CFV is compressible, spontaneous, phasic, CFV is compressible, spontaneous, phasic, competent, and demonstrates normal competent and demonstrates normal augmentation. augmentation. FV is compressible, spontaneous, phasic, competent and demonstrates normal augmentation. POP V is compressible, spontaneous, phasic, competent and demonstrates normal augmentation. T/P Trunk is compressible. PTV is compressible. RT PerV is compressible. Procedure Exam performed in department. A preliminary report was called and/or faxed to DR WHEELER. VL/Venous Duplex US, Unilateral Interpretation Summary There is no evidence of right lower extremity deep vein thrombosis. Right great saphenous vein appears patent and compressible segmentally. Normal flow patterns left common f emoral vein Suspected adenopathy right groin 1.4 x 0.92 cm and the second area 1.65 x 0.73 cm. Clinical correlation would be appropriate Ordering Physician: Reza Wheeler Referring Physician: RAN AJ Performed By: Joy Cordova, ELEONORA, RVT
== END ==
PROVIDERS: PCP Family Medicine; Referring Provider Psychiatry & Neurology Sleep Medicine; Visit Provider Psychiatry & Neurology Sleep Medicine
DX: I82.4Y1 Acute embolism and thrombosis of unspecified deep veins of right proximal lower extremity (principal)
CPT/HCPCS: 93971

== ENCOUNTER 2021-07-20 18:07 | Emergency (ER) | payer BC, SELFPAY ==
[2021-07-20 18:08] VITALS: BP 178/134; PULSE 119; RESP 15; TEMP 36.1; O2SAT 99; BMI 44.2
--- NOTE | 2021-07-20 18:28 | EX.ED.DYSGE1 ---
HPI History of Present Illness Chief Complaint: Other, Pain/Inj Narrative Narrative: Patient has been on Mirapex for the past 20+ years for restless leg syndrome, she was recently just taken off and now she has worsening of her movement disorder. She constantly has myoclonic jerks and has not been able to sleep for the past few nights. She has had some Clonopin 0.5 mg that has been taking as needed but it only relieves the symptoms transiently. No fever or chills. No chest pain no shortness of breath. She is denying urinary symptoms. No confusion. [facility] Medical History Restless leg syndrome Home Medications levothyroxine 175 mcg PO DAILY 09/01/13 [History Last Taken 09/06/19] omeprazole 20 mg PO DAILY 12/13/16 [History Last Taken 09/06/19] cholecalciferol (vitamin D3) 5,000 unit PO DAILY@1200 01/25/17 [History Last Taken 01/27/19] omega-3 fatty acids-fish oil [Fish Oil] 2,000 mg PO LUNCH 03/21/18 [History Last Taken 01/27/19] Pramipexole Di-Hcl [Pramipexole Dihydrochloride] 1 mg PO LUNCH 08/01/18 [History Last Taken 01/26/19] Pramipexole Di-Hcl [Pramipexole Dihydrochloride] 1.5 tab PO QHS 08/01/18 [History Last Taken 05/19/19] gabapentin 1,200 mg PO QHS 08/01/18 [History Last Taken 01/27/19] gabapentin 800 mg PO BID 08/01/18 [History Last Taken 09/06/19] lisinopril 10 mg PO LUNCH 08/01/18 [History Last Taken 09/06/19] venlafaxine 1 tab PO DAILY 08/01/18 [History Last Taken 01/26/19] venlafaxine [Effexor XR] 1 tab PO DAILY 08/01/18 [History Last Taken 01/26/19] aspirin 81 mg PO LUNCH 05/02/19 [History Last Taken Unknown] famotidine 40 mg PO QHS 05/02/19 [History Last Taken Unknown] ferrous sulfate 325 mg PO DAILY 08/30/19 [History Last Taken Unknown] Doxycycline 100 mg PO BID 11/28/19 [History Last Taken Unknown] ascorbic acid (vitamin C) 500 mg PO LUNCH 11/28/19 [History Last Taken Unknown] montelukast 10 mg PO QHS 11/28/19 [History Last Taken Unknown] pramipexole 0.5 mg PO DAILY 11/28/19 [History Last Taken Unknown] acetaminophen 1,000 mg PO Q8 tab 12/04/19 [Rx Last Taken Unknown] sennosides-docusate sodium 2 tab PO BID tab 12/04/19 [Rx Last Taken Unknown] Allergy/AdvReac Type Severity Reaction Status Date / Time hydrocodone bitartrate Allergy Intermediate Other Verified 07/20/21 18:10 [From Lortab] etodolac Allergy Unknown Verified 07/20/21 18:10 misoprostol Allergy Unknown Verified 07/20/21 18:10 celecoxib AdvReac Intermediate Other Verified 07/20/21 18:10 diclofenac [Diclofenac] AdvReac Mild Abd Verified 07/20/21 18:10 cramps/diarrhea ketorolac tromethamine AdvReac Mild Other Verified 07/20/21 18:10 [From Toradol] metoclopramide HCl AdvReac Mild Other Verified 07/20/21 18:10 [From Reglan] atorvastatin [From Lipitor] AdvReac Other Verified 07/20/21 18:10 clindamycin AdvReac Mucosal Verified 07/20/21 18:10 lesions Social History Smoking Status: Former smoker ROS ROS ED ROS Narrative Past medical history: Reviewed Medications: Reviewed Social history: Noncontributory Review of systems: All systems negative except as indicated General: No fever Eyes: No visual changes ENT: No upper airway congestion, normal voice Neck: No neck pain Cardiovascular: No chest pain Respiratory: No shortness of breath or cough Gastrointestinal: No abdominal pain, nausea vomiting or diarrhea Genitourinary: No dysuria Musculoskeletal: Excessive movements as in HPI Skin: No rash Neurological: No memory loss, confusion or any focal weakness Psych: No recent behavioral changes Hematologic: No easy bleeding or easy bruising EXAM Physical Exam Narrative Exam Narrative: Physical exam General: Patient appears uncomfortable. Head: Normocephalic, Atraumatic Eyes: Conjunctiva not pale ENT: Moist mucous membranes. No signs of dehydration Neck: Supple, Nontender, No lymphadenopathy Cardiovascular: Regular rate, Regular rhythm Respiratory: No distress, CTA bilaterally Abdomen: Soft, Nontender, Nondistended. She has a large abdominal wall hernia but no pain and it is easily reducible. Back: Nontender, Normal Inspection. Negative for: CVA tenderness Extremities: Constant multiple myoclonic jerks Skin: Normal color, No rash Neurological: Alert, Normal Strength, Normal Sensation. Otherwise as above Psychological: Anxious appearing Const Vital Signs: 07/20/21 18:08 07/20/21 18:29 07/20/21 19:45 Temperature 97 F L Temperature Source Temporal Pulse Rate 119 H 114 H Respiratory Rate 15 20 H Respiratory Pattern Normal Blood Pressure 178/134 H Blood Pressure Mean 148 Pulse Ox 99 98 Oxygen Delivery Method Room Air Room Air MDM MDM Radiography Diagnostic Testing: Patient was given benzodiazepines, muscle relaxants, also Geodon these did not improve her symptoms at all, I finally gave her some Mirapex and this significantly improved her symptoms. She likely has withdrawal from the Mirapex, she still has them at home and she will go home and resume at a lower dose, she will follow up with her doctor to see if there is a easier way to slowly decrease the Mirapex if she wants to get off that medication however I suggested that she does not stop abruptly anymore. Discharge Plan Triage Chief Complaint: Other, Pain/Inj ED Provider: Paul Mack Dx/Rx/DC Orders Clinical Impression: Acute drug withdrawal syndrome, Restless leg Prescriptions: No Action levothyroxine 175 MCG tablet 175 mcg PO DAILY RF: 0 omeprazole 20 MG capsule 20 mg PO DAILY RF: 0 cholecalciferol (vitamin D3) 5,000 UNIT capsule 5,000 unit PO DAILY@1200 RF: 0 omega-3 fatty acids-fish oil [Fish Oil] 1 EACH capsule 2,000 mg PO LUNCH RF: 0 lisinopril 10 MG tablet 10 mg PO LUNCH RF: 0 venlafaxine [Effexor XR] 75 MG Cap.Er.24h 1 tab PO DAILY RF: 0 gabapentin 600 MG tablet 800 mg PO BID RF: 0 venlafaxine 150 MG Cap.Er.24h 1 tab PO DAILY RF: 0 Pramipexole Di-Hcl [Pramipexole Dihydrochloride] 1.5 MG tablet 1.5 tab PO QHS RF: 0 Pramipexole Di-Hcl [Pramipexole Dihydrochloride] 1.5 MG tablet 1 mg PO LUNCH RF: 0 gabapentin 600 MG tablet 1,200 mg PO QHS RF: 0 aspirin 81 MG tablet,delayed release (DR/EC) 81 mg PO LUNCH RF: 0 famotidine 20 MG tablet 40 mg PO QHS RF: 0 ferrous sulfate 325 MG tablet 325 mg PO DAILY RF: 0 pramipexole 1 mg tablet 0.5 mg PO DAILY RF: 0 ascorbic acid (vitamin C) 500 MG tablet 500 mg PO LUNCH RF: 0 Doxycycline 100 mg PO BID RF: 0 montelukast 10 MG tablet 10 mg PO QHS RF: 0 sennosides-docusate sodium 1 TABLET tablet 2 tab PO BID RF: 0 acetaminophen 500 MG tablet 1,000 mg PO Q8 RF: 0 Primary Care Provider: Gustavo Ceballos Referrals: Gustavo Ceballos MD [Primary Care Provider] - 3-5 Days Disposition Disposition: Home, Self Care
[2021-07-20] MEDS: Orphenadrine 60 MG/2 ML Ampul IM (18:39)
[2021-07-20] MEDS: Ziprasidone IM 20 MG/ML VIAL 10 MG IM (18:40)
[2021-07-20] MEDS: diazePAM 5 MG Tablet PO (18:41)
[2021-07-20] MEDS: LORazepam 2 MG/ML Syringe IM (19:42)
[2021-07-20 19:45] VITALS: PULSE 114; RESP 20; O2SAT 98
[2021-07-20] MEDS: Pramipexole Di-HCl 1 MG Tablet PO (20:19)
== END 2021-07-20 21:22 | disposition home or self-care (01) ==
PROVIDERS: Emergency Provider Emergency Medicine; PCP Family Medicine; Visit Provider Emergency Medicine
DX: G25.81 Restless legs syndrome (principal); T42.8X5A Adverse effect of antiparkinsonism drugs and other central muscle-tone depressants, initial encounter; G25.9 Extrapyramidal and movement disorder, unspecified; Z87.891 Personal history of nicotine dependence; Z79.899 Other long term (current) drug therapy; G47.09 Other insomnia
CPT/HCPCS: 96372; 99283; J3486

== ENCOUNTER → 2021-07-31 | Outpatient (CLI) | payer BC, SELFPAY ==
--- NOTE | 2021-07-31 10:29 | RAD_ITS ---
PROCEDURE: Fluoroscopic guided Hip Injection DATE: 07/31/2021. INDICATION: Female, 61 years old. Chronic right hip pain. PHYSICIAN: Zafar Abernathy M.D. MEDICATIONS: 6 mg of BETAMETHASONE and 3 cc of 1% LIDOCAINE. 2% Lidocaine administered subcutaneously for local anesthesia. ACCESS SITE: Right hip. NEEDLE: 22-gauge spinal needle. FLUOROSCOPY TIME (if supplied): (0:35) minutes/seconds FINDINGS: The risks, benefits, and alternatives to the procedure were explained to the patient. The specific risks of bleeding, infection, and neurovascular injury were detailed and accepted. Witnessed informed consent was obtained. A 22-gauge spinal needle was positioned under radiographic fluoroscopic localization. Approximately 2 cc of ISOVUE 300 instilled for localization purposes. Medication was then injected. The patient tolerated the procedure well without any immediate complications. RAD/Inj/Asp Benedict Jt Should/Hip/Knee IMPRESSION: 1. Successful fluoroscopic guided hip injection. Electronically Signed: Zafar Abernathy MD at 11:20 EDT ,
[2021-07-31] MEDS: Lidocaine 2% (5ml sdv) 5 ML VIAL.MPF INFILT (10:45)
[2021-07-31] MEDS: Betamethasone/Betamethasone 30 MG/5 ML Vial 6 MG INTRAARTIC (10:48)
[2021-07-31] MEDS: Lidocaine 1% (5 ml sdv) 5 ML Vial 3 ML INFILT (10:48)
== END | disposition home or self-care (01) ==
PROVIDERS: PCP Family Medicine; Referring Provider Specialist; Visit Provider Specialist
DX: M16.11 Unilateral primary osteoarthritis, right hip (principal)
CPT/HCPCS: 20610; 77002; Q9967; J0702

== ENCOUNTER → 2021-10-31 | Outpatient (CLI) | payer BC, SELFPAY ==
--- NOTE | 2021-10-31 14:50 | CT_ITS ---
STUDY: LOW DOSE CT LUNG CANCER SCREENING REASON FOR EXAM: Female, 61 years old. HX OF NICOTINE DEPENDENCY. Stopped smoking 10 years ago, 20 pack year history RADIATION DOSAGE (If Supplied By Facility): CTDIvol = ( 3.18 ) mGy, DLP = ( 100.85 ) mGycm TECHNIQUE: No contrast was administered. Low dose technique was utilized (average mAS-38 and kVp 120). 1.25 mm axial source images with a slice interval of 1.25-mm were reconstructed in lung windows. 2.5 mm axial source images with a slice interval of 2.5-mm were reconstructed in lung windows. 5.0 mm axial source images with a slice interval of 5.0-mm were reconstructed in soft tissue windows. COMPARISON: None. NODULES: Total lung nodules (excluding granulomas): 0 Emphysema: Not present Endobronchial lesion: None Aorta: Mild atherosclerosis CORONARY ARTERIES: Coronary artery calcification is seen. Heart: Normal size Pulmonary artery: Unremarkable. Unopacified technique. Mediastinal nodes: No adenopathy Other chest and abdominal findings: None significant CT/Low Dose CT Lung Screening IMPRESSION: Lung-RADS category 1 - Continue annual screening with LDCT in 12 months. IMPORTANT NOTES FOR USE: ACR Lung-RADS Version 1.1 Assessment Categories Release Date: 2018 Category: Coded 0-4 bases on nodule(s) with highest degree of suspicion. Negative screen is defined as categories 1 and 2; a positive screen is defined as categories 3 and 4. Category 3 and 4A nodules that are unchanged on interval CT should be coded as category 2, and individuals returned to screening in 12 months. Category 4X: Category 3 or 4 nodules with additional imaging findings that increase the suspicion of lung cancer, such as spiculation, GGN that doubles in size in 1 year, enlarged lymph notes, etc. Category Modifiers: S (significant finding unrelated to lung cancer) Electronically Signed: Danilo Sullivan MD (Brooks) at 11:18 EDT Reading Location ID and State: [facility] / [place] , Service support ,
== END | disposition home or self-care (01) ==
LOC: CT 14:49
PROVIDERS: PCP Family Medicine; Referring Provider Family Medicine; Visit Provider Family Medicine
DX: Z87.891 Personal history of nicotine dependence (principal); Z12.2 Encounter for screening for malignant neoplasm of respiratory organs
CPT/HCPCS: 71271

== ENCOUNTER → 2021-11-24 | Outpatient (CLI) | payer BC, SELFPAY ==
--- NOTE | 2021-11-24 14:39 | BI_ITS ---
MAMMOGRAPHY - BILATERAL SCREENING REASON FOR EXAM: Female, 61 years old. Routine annual screening examination. PERTINENT HISTORY: Non-contributory. TECHNIQUE: Digital bilateral breast william (3D mammographic acquisition) in the CC and MLO projections. 2-D mediolateral oblique (MLO) and craniocaudad (CC) views of both breasts were obtained. CAD: Full Field Digital Mammography with Computer Added Detection was performed. COMPARISON: Comparison is made with prior study dated 11/22/2020. FINDINGS: Breast Composition: The breasts are almost entirely fatty. There are no dominant masses or suspicious calcifications. Stable small benign appearing bilateral axillary No other significant abnormalities are identified. There has been no significant change since the prior study. BI/SCRN MAMM (CAD)W/WILLIAM BILAT IMPRESSION: Stable bilateral screening mammogram. Yearly follow-up mammogram recommended. (A) ASSESSMENT CATEGORY: BIRADS Category 2: Benign. A letter regarding these results will be sent to the patient by the facility within 30 days. Approximately 10% of breast cancers are not detected by mammography. A normal mammogram should not delay biopsy of a clinically suspicious abnormality. [id number] Electronically Signed: Zafar Abernathy MD at 15:48 EDT ,
== END | disposition home or self-care (01) ==
LOC: OPBI 14:36
PROVIDERS: PCP Family Medicine; Visit Provider Family Medicine
DX: Z12.31 Encounter for screening mammogram for malignant neoplasm of breast (principal)
CPT/HCPCS: 77063; 77067

== ENCOUNTER 2022-01-21 08:45 | Emergency (ER) | payer BC, SELFPAY ==
[2022-01-21 08:46] VITALS: BP 182/161; PULSE 84; RESP 20; TEMP 35.7; O2SAT 98; BMI 44.2
--- NOTE | 2022-01-21 09:04 | EX.ED.DYSGE1 ---
HPI History of Present Illness Chief Complaint: Lower Extremity Injury Informant: patient Narrative Narrative: 61-year-old female presenting to the emergency department with right hip pain. Patient states that her hip pain has been progressively becoming worse. She is scheduled to have a hip replacement with Dr. Barton on 24 February. She states that she called the office today noting that she it was very difficult for her to even get out of bed today. She states that she spoke with the nurse who advised her to come to the emergency department as she may have a partial hip dislocation. The patient states that she has not had any trauma or reason to believe her hip would be dislocated but because of the pain and inability to see her doctor she presents to the emergency department. She states that she used to be on Mobic has an allergy to hydrocodone as well as Toradol. She continues to smoke. She has a history of diabetes and p DVT with the presence of IVC filter. [facility] Medical History (Updated 01/21/22 @ 10:[address] Hussein Munson, DO) Diabetes mellitus Diverticulosis of colon without diverticulitis History of DVT (deep vein thrombosis) History of Graves' disease Obesity Presence of IVC filter Renal insufficiency Restless leg syndrome Superficial thrombophlebitis Venous (peripheral) insufficiency Home Medications levothyroxine 175 mcg tablet 175 mcg PO DAILY thyroid 09/01/13 [History Last Taken 09/06/19] omeprazole 20 mg capsule,delayed release 20 mg PO DAILY gerd 12/13/16 [History Last Taken 09/06/19] cholecalciferol (vitamin D3) 125 mcg (5,000 unit) capsule 5,000 unit PO DAILY@1200 supplement 01/25/17 [History Last Taken 01/27/19] omega-3 fatty acids-fish oil 340 mg-1,000 mg capsule (Fish Oil) 2,000 mg PO LUNCH supplement 03/21/18 [History Last Taken 01/27/19] lisinopril 10 mg tablet 10 mg PO LUNCH bp 08/01/18 [History Last Taken 09/06/19] venlafaxine 150 mg capsule,extended release 24 hr 1 tab PO DAILY depression 08/01/18 [History Last Taken 01/26/19] venlafaxine 75 mg capsule,extended release 24 hr (Effexor XR) 1 tab PO DAILY depression 08/01/18 [History Last Taken 01/26/19] aspirin 81 mg tablet,delayed release 81 mg PO LUNCH supplement 05/02/19 [History Last Taken Unknown] famotidine 20 mg tablet 40 mg PO QHS gerd 05/02/19 [History Last Taken Unknown] ferrous sulfate 325 mg (65 mg iron) tablet 325 mg PO DAILY SUPPLEMENT 08/30/19 [History Last Taken Unknown] Doxycycline 100 mg PO BID infection 11/28/19 [History Last Taken Unknown] ascorbic acid (vitamin C) 500 mg tablet 500 mg PO LUNCH 11/28/19 [History Last Taken Unknown] acetaminophen 500 mg tablet 1,000 mg PO Q8 12/04/19 [Rx Last Taken Unknown] sennosides 8.6 mg-docusate sodium 50 mg tablet 2 tab PO BID 12/04/19 [Rx Last Taken Unknown] pregabalin 150 mg capsule (Lyrica) 150 mg PO TID 12/02/21 [History Last Taken Unknown] oxycodone-acetaminophen 5 mg-325 mg tablet See Rx Instructions .Route .COMPLEX PRN pain 5 days #20 TABLETS 01/21/22 [Rx Last Taken Unknown] Allergy/AdvReac Type Severity Reaction Status Date / Time hydrocodone bitartrate Allergy Intermediate Other Verified 01/21/22 08:46 [From Lortab] etodolac Allergy Unknown Verified 01/21/22 08:46 misoprostol Allergy Unknown Verified 01/21/22 08:46 celecoxib AdvReac Intermediate Other Verified 01/21/22 08:46 diclofenac [Diclofenac] AdvReac Mild Abd Verified 01/21/22 08:46 cramps/diarrhea ketorolac tromethamine AdvReac Mild Other Verified 01/21/22 08:46 [From Toradol] metoclopramide HCl AdvReac Mild Other Verified 01/21/22 08:46 [From Reglan] atorvastatin [From Lipitor] AdvReac Other Verified 01/21/22 08:46 clindamycin AdvReac Mucosal Verified 01/21/22 08:46 lesions Surgical History (Updated 01/21/22 @ 09:[address] Hussein Munson DO) History of colonoscopy Hx of total knee replacement Social History (Updated 01/21/22 @ 09:[address] Hussein Munson DO) Smoking Status: Former smoker substance use type: does not use ROS ROS ED Constitutional Constitutional ED: Denies chills or weight loss Eyes Eyes: Denies change in vision or diplopia ENT ENT ED: Denies ear pain, rhinorrhea or sore throat Cardiovascular Cardiovascular: Denies chest pain, orthopnea, palpitations or racing heartbeat Respiratory/Chest Respiratory/Chest: Denies cough, dyspnea or orthopnea Gastrointestinal Gastrointestinal: Denies abdominal pain, diarrhea, nausea or vomiting Genitourinary Genitourinary ED: Denies dysuria, hematuria or urinary frequency Musculoskeletal Musculoskeletal: Reports other Details: Right hip pain ; Denies arthralgias or myalgias Integumentary Denies abscess or rash Neurologic Neurologic: Denies headache(s) or weakness Psychiatric Psychiatric: Denies anxiety, depression, suicidal ideation or suicidal thoughts Endocrine Endocrinology: Denies polydipsia, polyphagia or polyuria Allergic/Immunologic Allergic/Immunologic ED: Denies mouth swelling, tongue swelling or urticaria EXAM Physical Exam Const Vital Signs: 01/21/22 08:46 Temperature 96.3 F L Temperature Source Temporal Pulse Rate 84 Respiratory Rate 20 H Blood Pressure 182/161 H Blood Pressure Mean 168 Pulse Ox 98 Oxygen Delivery Method Room Air Positive well nourished, well developed and obese General Appearance ED: well developed Nutritional Appearance: obese HEENT Reports normocephalic, head/scalp atraumatic and moist mucous membranes Eyes PERRL and EOMs intact bilaterally Neck no lymphadenopathy, supple and no JVD Resp normal respiratory effort and clear to auscultation bilaterally Cardio regular rate, regular rhythm and no murmurs GI normal to inspection, nondistended, normoactive bowel sounds and non-tender Palpation: soft Back/Spine no CVA tenderness and normal ROM Extremity Extremity Narrative: Chronic venous changes of the lower extremity. Well-healed chronic wound to the right knee. Tenderness over the greater trochanter and painful internal/external rotation. Neurologically intact General Extremety ED: Negative for edema General Extremity: Negative for edema Neuro oriented x3 and CN's II-XII intact bilaterally Sensorium / Orientation: alert Motor Exam: strength 5/5 throughout Psych mental status grossly normal Mood & Affect: Negative for depressed or tearful Skin no rashes or lesions noted and no wounds MDM MDM MDM Narrative Medical decision making narrative: My interpretation of the plain films of the right hip significant hip arthrosis. Patient received a dose of morphine. She states her pain is better but is worried about pain management at home. She has previously tried anti-inflammatories. I will write her for to have some Percocet but advised her to please call her surgeon and schedule early follow-up to assist in pain management. At this point I do not see any evidence of a septic hip. I do not think we need to hospitalize her at this time. 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 Orthopedic surgery consultation recommended No demonstrated fracture Electronically Signed: José Manuel Freeman MD at 9:43 EDT , Discharge Plan Triage Chief Complaint: Lower Extremity Injury ED Provider: Hussein Munson Dx/Rx/DC Orders Clinical Impression: Acute pain of right hip, Hip arthrosis Instructions: What Is Arthritis? Prescriptions: New oxycodone-acetaminophen [oxycodone-acetaminophen] 5-325 mg tablet See Rx Instructions .ROUTE .COMPLEX PRN (Reason: pain) 5 Days Qty: 20 0RF Rx Instructions: 1-2 tabs p.o. every 6 hours No Action pregabalin [Lyrica] 150 mg capsule 150 mg PO TID levothyroxine 175 MCG tablet 175 mcg PO DAILY omeprazole 20 MG capsule 20 mg PO DAILY cholecalciferol (vitamin D3) 5,000 UNIT capsule 5,000 unit PO DAILY@1200 omega-3 fatty acids-fish oil [Fish Oil] 1 EACH capsule 2,000 mg PO LUNCH lisinopril 10 MG tablet 10 mg PO LUNCH venlafaxine [Effexor XR] 75 MG capsule,extended release 24hr 1 tab PO DAILY venlafaxine 150 MG capsule,extended release 24hr 1 tab PO DAILY aspirin 81 MG tablet,delayed release (DR/EC) 81 mg PO LUNCH famotidine 20 MG tablet 40 mg PO QHS ferrous sulfate 325 MG tablet 325 mg PO DAILY ascorbic acid (vitamin C) 500 MG tablet 500 mg PO LUNCH Doxycycline 100 mg PO BID sennosides-docusate sodium 1 TABLET tablet 2 tab PO BID 0RF Rx Instructions: Take until first bowel movement, then as needed acetaminophen 500 MG tablet 1,000 mg PO Q8 0RF Rx Instructions: Do not take more than 3000 mg Tylenol in a 24-hour period. Primary Care Provider: Gustavo Ceballos Referrals: Gustavo Ceballos MD [Primary Care Provider] - Major Barton MD [Med Staff - Active Staff] - As soon as possible Disposition Disposition: Home, Self Care
[2022-01-21] MEDS: morphine 10 MG/ML Syringe IM (09:07)
--- NOTE | 2022-01-21 09:15 | RAD_ITS ---
STUDY: X-RAY - PELVIS AND RIGHT HIP REASON FOR EXAM: Female, 61 years old. Hip pain and stiffness TECHNIQUE: 3 views of the pelvis and hip. COMPARISON: None. FINDINGS: There is a non-specific bowel gas pattern. Normal visualized soft tissue structures. There is narrowing with cortical sclerosis and osteophyte formation of the sacroiliac joint consistent with degenerative osteoarthritic changes. Normal bilateral superior and inferior pubic rami. Normal pubic symphysis. Normal bilateral ischial tuberosities. End-stage right hip arthrosis with obliteration of the joint space, and subchondral sclerotic changes on the femoral head. These changes are suggestive of AVN. No subchondral changes noted on the acetabulum. Age consistent left hip arthrosis. Evidence of osteitis pubis. No demonstrated hip or pelvic fracture. RAD/HIP, UNI W/ Pelvis 2-3 Views IMPRESSION: End-stage right hip arthrosis with plain film changes of AVN. Orthopedic surgery consultation recommended No demonstrated fracture Electronically Signed: José Manuel Freeman MD at 9:43 EDT ,
== END 2022-01-21 10:45 | disposition home or self-care (01) ==
PROVIDERS: Emergency Provider Emergency Medicine; PCP Family Medicine; Visit Provider Emergency Medicine
DX: M16.11 Unilateral primary osteoarthritis, right hip (principal); E11.9 Type 2 diabetes mellitus without complications; E66.9 Obesity, unspecified; Z87.891 Personal history of nicotine dependence; Z86.718 Personal history of other venous thrombosis and embolism
CPT/HCPCS: 73502; 96372; 99282

== ENCOUNTER → 2022-01-29 | Outpatient (CLI) | payer BC, SELFPAY ==
[2022-01-29 16:34] LABS: Absolute Lymphocyte Count 4.03 X10^3/uL (0.83-4.51); Absolute Neutrophil Count 9.1 X10^3/uL (2.0-7.7); Basophil# 0.11 X10^3/uL; Basophil% 0.7 % (0-1); Eosinophil# 0.22 X10^3/uL; Eosinophils% 1.5 % (0-5); Hematocrit 54.6 % (37-47); Lymphocyte # 4.03 X10^3/ul (0.83-4.51); Lymphocyte % 27.4 % (19-41); Mean Corpuscular Hgb 28.6 pg (27.0-32.0); Mean Corpuscular Volume 86.7 fL (81-99); Mean Platelet Vol. 9.5 fl (6.2-12.0); Monocyte# 1.14 X10^3/uL; Monocyte% 7.7 % (0-10); NRBC Flagged by Analyzer 0 % (0-5); Neutrophil # 9.12 X10^3/uL (2.7-7.7); Neutrophil % 62.1 % (47-70); Platelet Count 278 K/mm3 (150-450); RBC Distribution Width CV 15.9 % (11.6-14.6); White Blood Count 14.7 K/mm3 (4.4-11.0)
[2022-01-29 16:57] LABS: Anion Gap 5 (5-15); BUN 33 mg/dL (7-18); BUN/Creat Ratio 38.6 RATIO (10-20); Calcium,Total 9.5 mg/dL (8.5-10.1); Chloride 106 mmol/L (98-107); Creatinine, Serum 0.85 mg/dL (0.55-1.02); EST Glomerular Filtration Rate 72 mL/min (>60); Est Glom Filt Rate - Afr Amer 87 mL/min (>60); Glucose 99 mg/dL (74-106); Potassium 4.2 mmol/L (3.5-5.1); Sodium Level 139 mmol/L (136-145)
[2022-01-29 17:01] LABS: Differential Indicated SCAN CRITERIA MET; POSITIVE COUNT NO; POSITIVE DIFFERENTIAL NO; POSITIVE MORPHOLOGY NO
[2022-01-29 17:12] LABS: Platelet Estimate ADEQUATE (ADEQ)
[2022-01-29 17:13] LABS: Anisocytosis RARE; Red Cell Morphology NORM C+C NORMAL (NORM C&C)
[2022-02-02 09:36] LABS: Pathologist Review Reviewed
== END | disposition home or self-care (01) ==
LOC: LAB 15:45
PROVIDERS: PCP Family Medicine; Visit Provider Specialist
DX: M16.11 Unilateral primary osteoarthritis, right hip (principal)
CPT/HCPCS: 36415; 80048; 82040; 85025

== ENCOUNTER 2022-02-27 11:26 | Emergency (ER) | payer BC, SELFPAY ==
[2022-02-27 11:28] VITALS: BP 123/66; PULSE 89; RESP 16; TEMP 36.6; O2SAT 96; BMI 45.3
--- NOTE | 2022-02-27 11:41 | EX.ED.DYSGE1 ---
HPI <MERISSA Ba - Last Filed: 02/27/22 21:13> History of Present Illness Chief Complaint: Lower Extremity Injury Narrative Narrative: 61-year-old female with history of arthritis, hypertension, diabetes, hyperlipidemia who is currently a patient of Dr. Albarrans, patient was scheduled to have a right hip replacement secondary to end-stage arthritis. Due to a abnormality of hemoglobin which it was too high, the surgery was canceled and rescheduled for March 10, 2022. Patient states that today the pain is worse than it ever has been, she is unable to bear weight, lay on it. Patient is here for uncontrolled pain. Patient states that there is no way that she is going to make it to March 10, 2022. Patient denies any new injury, patient denies any neurological focal deficit. Patient states that any movement hurts on the lateral hip, internal groin. Denies any fever or chills. PFSH <MERISSA Ba - Last Filed: 02/27/22 21:13> FORMERLY [facility], [facility] Medical History Diabetes mellitus Diverticulosis of colon without diverticulitis History of DVT (deep vein thrombosis) History of Graves' disease Obesity Presence of IVC filter Renal insufficiency Restless leg syndrome Superficial thrombophlebitis Venous (peripheral) insufficiency Home Medications levothyroxine 175 mcg tablet 175 mcg PO DAILY thyroid 09/01/13 [History Last Taken 09/06/19] omeprazole 20 mg capsule,delayed release 20 mg PO DAILY gerd 12/13/16 [History Last Taken 09/06/19] cholecalciferol (vitamin D3) 125 mcg (5,000 unit) capsule 5,000 unit PO DAILY@1200 supplement 01/25/17 [History Last Taken 01/27/19] omega-3 fatty acids-fish oil 340 mg-1,000 mg capsule (Fish Oil) 2,000 mg PO LUNCH supplement 03/21/18 [History Last Taken 01/27/19] lisinopril 10 mg tablet 10 mg PO LUNCH bp 08/01/18 [History Last Taken 09/06/19] venlafaxine 150 mg capsule,extended release 24 hr 1 tab PO DAILY depression 08/01/18 [History Last Taken 01/26/19] venlafaxine 75 mg capsule,extended release 24 hr (Effexor XR) 1 tab PO DAILY depression 08/01/18 [History Last Taken 01/26/19] aspirin 81 mg tablet,delayed release 81 mg PO LUNCH supplement 05/02/19 [History Last Taken Unknown] famotidine 20 mg tablet 40 mg PO QHS gerd 05/02/19 [History Last Taken Unknown] ferrous sulfate 325 mg (65 mg iron) tablet 325 mg PO DAILY SUPPLEMENT 08/30/19 [History Last Taken Unknown] Doxycycline 100 mg PO BID infection 11/28/19 [History Last Taken Unknown] ascorbic acid (vitamin C) 500 mg tablet 500 mg PO LUNCH 11/28/19 [History Last Taken Unknown] acetaminophen 500 mg tablet 1,000 mg PO Q8 12/04/19 [Rx Last Taken Unknown] pregabalin 150 mg capsule (Lyrica) 150 mg PO TID 12/02/21 [History Last Taken Unknown] oxycodone-acetaminophen 5 mg-325 mg tablet (Percocet) 1 tab PO Q6H 7 days #28 tabs 02/27/22 [Rx Last Taken Unknown] tramadol 50 mg tablet 50 - 100 mg PO Q6H 02/27/22 [History Last Taken Unknown] Allergy/AdvReac Type Severity Reaction Status Date / Time hydrocodone bitartrate Allergy Intermediate Other Verified 02/27/22 11:27 [From Lortab] etodolac Allergy Unknown Verified 02/27/22 11:27 misoprostol Allergy Unknown Verified 02/27/22 11:27 celecoxib AdvReac Intermediate Other Verified 02/27/22 11:27 diclofenac [Diclofenac] AdvReac Mild Abd Verified 02/27/22 11:27 cramps/diarrhea ketorolac tromethamine AdvReac Mild Other Verified 02/27/22 11:27 [From Toradol] metoclopramide HCl AdvReac Mild Other Verified 02/27/22 11:27 [From Reglan] atorvastatin [From Lipitor] AdvReac Other Verified 02/27/22 11:27 clindamycin AdvReac Mucosal Verified 02/27/22 11:27 lesions Surgical History History of colonoscopy Hx of total knee replacement Social History Smoking Status: Former smoker substance use type: does not use ROS <MERISSA Ba - Last Filed: 02/27/22 21:13> ROS ED ROS Narrative Constitutional: Negative for fever, chills, weight loss, weakness Eyes: Negative for vision loss, vision change, double vision ENT: Negative for any sore throat, ear pain, congestion Cardiovascular: Negative for any chest pain, tightness, palpitations Respiratory: Negative for any cough, sputum production, hemoptysis, dyspnea, dyspnea on exertion, orthopnea Gastrointestinal: Negative for any abdominal pain, nausea, vomiting, diarrhea, constipation, blood in stool, blood in vomit : Negative for any urinary frequency, dysuria, retention, blood in urine Muscle skeletal: Negative for any muscle joint pain, stiffness, myalgias, neck pain, back pain. Positive right hip pain, arthralgia Neurological: Negative for any headache, syncope, numbness or tingling, dizziness Skin: Negative for any rashes, lumps, itching, abrasions, lacerations Psychiatric: Negative for any depression, anxiety, stress, suicidal ideation, homicidal ideation Hematologic: Negative for any easy bruising, excessive bruising, easy bleeding Allergies: Negative for any eczema, hives, rash EXAM <MERISSA Ba - Last Filed: 02/27/22 21:13> Physical Exam Narrative Exam Narrative: Vital signs reviewed. Patient on initial assessment is laying on her left side and appears to be in discomfort. HEET: Head normocephalic atraumatic, TMs clear bilaterally. Posterior pharynx is clear, moist mucous membranes. Nares clear bilaterally. Neck: Supple with no lymphadenopathy or tenderness. No signs of meningismus, negative jolt sign. Cardiac: Regular rate and rhythm no murmurs gallops or rubs, equal peripheral pulses bilaterally. Respiratory: Lungs clear to auscultation bilaterally. No chest tenderness. Abdomen: Soft, nontender, nondistended. No abdominal bruit or pulsatile masses. No hepatosplenomegaly Extremities: Patient is holding her right hip, patient does have pain on palpation to the lateral hip as well as the medial aspect. Patient has +2 pedal pulses that are equal bilaterally. No neurological focal deficit. Neuro: Cranial nerves II through XII intact, no focal neurological deficits. Skin: Clean dry and intact with no rash, purpura, petechiae, vesicles or pustules. Backs/flank: No CVA tenderness, no midline spinal tenderness, no deformity. Psych: Normal mood and affect. No SI, HI or acute psychosis. Const Vital Signs: 02/27/22 11:28 02/27/22 12:37 02/27/22 14:00 Temperature 97.8 F Temperature Source Oral Pulse Rate 89 91 Respiratory Rate 16 18 Blood Pressure 123/66 H 141/83 H 108/60 Blood Pressure Mean 85 102 76 Pulse Ox 96 96 Oxygen Delivery Method Room Air Room Air 02/27/22 14:13 Temperature Temperature Source Pulse Rate Respiratory Rate 18 Blood Pressure 108/60 Blood Pressure Mean Pulse Ox Oxygen Delivery Method <Dr. Real Quijano MD - Last Filed: 02/27/22 21:32> Physical Exam Const Vital Signs: 02/27/22 11:28 02/27/22 12:37 02/27/22 14:00 Temperature 97.8 F Temperature Source Oral Pulse Rate 89 91 Respiratory Rate 16 18 Blood Pressure 123/66 H 141/83 H 108/60 Blood Pressure Mean 85 102 76 Pulse Ox 96 96 Oxygen Delivery Method Room Air Room Air 02/27/22 14:13 Temperature Temperature Source Pulse Rate Respiratory Rate 18 Blood Pressure 108/60 Blood Pressure Mean Pulse Ox Oxygen Delivery Method MDM <MERISSA Ba - Last Filed: 02/27/22 21:13> MDM Treatment and Re-Evaluation Narrative: Patient arrives in obvious distress secondary to right hip pain. Patient's vital signs are stable, patient appears nontoxic. Patient's physical examination is consistent with muscle skeletal right hip pain. I did look in the patient's past x-ray which was a couple weeks ago, patient does have severe arthritis to the right hip which they called end-stage arthritis. Patient has a surgery date of March 10 however she is on able to wait. Patient was given IV morphine, this only helped her slightly, patient was given IV Dilaudid 1 mg. On reassessment, the patient was able to sit on her butt and was much more relaxed. I did have a long conversation with the patient, she does have laboratory studies that were done today which were unremarkable. She does have a orthopedic surgery scheduled however she will call Wednesday to see if she can move it up. Patient be given 1 week worth of Percocet. She will continue to use her wheelchair at home. Patient is agreeable with the plan. She is stable for discharge. <Dr. Real Quijano MD - Last Filed: 02/27/22 21:32> [facility] Narrative Medical decision making narrative: I have personally performed a face to face assessment of the patient and have reviewed the HONORIO Note. I performed a substantive portion of the visit including all aspects of the following. My payne findings include: History is remarkable for right hip pain. She points to the right inguinal area. She was scheduled for a right total hip arthroplasty. This was canceled because of elevated hemoglobin. Suspect this is due to polycythemia vera secondary. She presently navigates with use of wheelchair. She is unable to ambulate. She is scheduled for surgery on March 10, 2022. Exam is she has pain with weightbearing and logrolling of the right lower extremity. There is no neurovascular findings. Medical Decision Making patient was medicated with opiate analgesia. She was discharged home with appropriate pain medicine. Other additions or changes: None Discharge Plan Triage Chief Complaint: Lower Extremity Injury ED Midlevel Provider: Paul Varner ED Provider: Real Quijano Dx/Rx/DC Orders Clinical Impression: Acute right hip pain, Arthritis Instructions: Medicine for Pain, ED Arthralgia Prescriptions: New oxycodone-acetaminophen [Percocet] 5-325 mg tablet 1 tab PO Q6H 7 Days Qty: 28 0RF Rx Instructions: The patient is having right hip surgery on March 10. The patient will see her orthopod about moving of the surgery. Patient has end-stage arthritis, this is the reason for the 7 days of Percocet. No Action pregabalin [Lyrica] 150 mg capsule 150 mg PO TID levothyroxine 175 MCG tablet 175 mcg PO DAILY omeprazole 20 MG capsule 20 mg PO DAILY cholecalciferol (vitamin D3) 5,000 UNIT capsule 5,000 unit PO DAILY@1200 Fish Oil 1 EACH capsule 2,000 mg PO LUNCH lisinopril 10 MG tablet 10 mg PO LUNCH venlafaxine [Effexor XR] 75 MG capsule,extended release 24hr 1 tab PO DAILY venlafaxine 150 MG capsule,extended release 24hr 1 tab PO DAILY aspirin 81 MG tablet,delayed release (DR/EC) 81 mg PO LUNCH famotidine 20 MG tablet 40 mg PO QHS ferrous sulfate 325 MG tablet 325 mg PO DAILY ascorbic acid (vitamin C) 500 MG tablet 500 mg PO LUNCH Doxycycline 100 mg PO BID acetaminophen 500 MG tablet 1,000 mg PO Q8 0RF Rx Instructions: Do not take more than 3000 mg Tylenol in a 24-hour period. tramadol 50 mg tablet 50 - 100 mg PO Q6H Label Comments: TAKE 1 TO 2 TABLETS BY MOUTH EVERY 6 HOURS Primary Care Provider: Gustavo Ceballos Referrals: Gustavo Ceballos MD [Primary Care Provider] - Activity Restrictions/Additional Instructions: Please do your best to make the Percocet last. You need to follow-up with your orthopod. Disposition Disposition: Home, Self Care Discharge Date/Time: 02/27/22 14:36
[2022-02-27] MEDS: Morphine 4 MG/ML Syringe IV (11:43)
[2022-02-27] MEDS: Ondansetron 4 MG/2 ML Vial IV (11:43)
[2022-02-27] MEDS: HYDROmorphone 1 MG/ML Syringe IV (12:35)
[2022-02-27 12:37] VITALS: BP 141/83; PULSE 91; RESP 18; O2SAT 96
[2022-02-27 14:00] VITALS: BP 108/60
[2022-02-27 14:13] VITALS: BP 108/60; RESP 18
[2022-02-27] MEDS: oxyCODONE 5 MG Tablet PO (14:29)
== END 2022-02-27 14:36 | disposition home or self-care (01) ==
PROVIDERS: Emergency Provider Emergency Medicine; PCP Family Medicine; Visit Provider Emergency Medicine
DX: M16.11 Unilateral primary osteoarthritis, right hip (principal); D58.2 Other hemoglobinopathies; E11.9 Type 2 diabetes mellitus without complications; I10 Essential (primary) hypertension; Z96.641 Presence of right artificial hip joint; Z87.891 Personal history of nicotine dependence
CPT/HCPCS: 96374; 96375; 99285; A4216; J2405

== ENCOUNTER → 2022-02-27 | Outpatient (CLI) | payer BC, SELFPAY ==
[2022-02-27 09:16] LABS: Absolute Neutrophil Count 6.5 X10^3/uL (2.0-7.7); Basophil# 0.06 X10^3/uL; Basophil% 0.6 % (0-1); Eosinophil# 0.25 X10^3/uL; Eosinophils% 2.6 % (0-5); Hematocrit 49.3 % (37-47); Hemoglobin 16.1 g/dL (12.0-15.0); Lymphocyte % 21.9 % (19-41); Mean Corp Hgb Conc 32.7 g/dL (32-36); Mean Corpuscular Hgb 28.8 pg (27.0-32.0); Mean Platelet Vol. 9.7 fl (6.2-12.0); Monocyte# 0.68 X10^3/uL; Monocyte% 7.1 % (0-10); NRBC Flagged by Analyzer 0 % (0-5); Neutrophil # 6.47 X10^3/uL (2.7-7.7); Neutrophil % 67.4 % (47-70); Platelet Count 234 K/mm3 (150-450); RBC Distribution Width SD 47.9 fl (35.1-43.9); White Blood Count 9.6 K/mm3 (4.4-11.0)
[2022-02-27 09:21] LABS: Prothrombin Time (Protime)PT. 12.9 SECONDS (11.7-14.9)
[2022-02-27 09:41] LABS: Albumin, Serum 3.7 g/dL (3.2-5.0); Anion Gap 4 (5-15); BUN 22 mg/dL (7-18); BUN/Creat Ratio 27.8 RATIO (10-20); Calcium,Total 9.1 mg/dL (8.5-10.1); Chloride 108 mmol/L (98-107); Creatinine, Serum 0.79 mg/dL (0.55-1.02); EST Glomerular Filtration Rate 78 mL/min (>60); Est Glom Filt Rate - Afr Amer 95 mL/min (>60); Glucose 117 mg/dL (74-106); Potassium 3.6 mmol/L (3.5-5.1); Sodium Level 142 mmol/L (136-145)
== END | disposition home or self-care (01) ==
LOC: LAB 08:52
PROVIDERS: PCP Family Medicine; Visit Provider Physician Assistant Surgical
DX: Z01.818 Encounter for other preprocedural examination (principal)
CPT/HCPCS: 36415; 80048; 82040; 85025; 85610

== ENCOUNTER 2022-05-21 16:40 | Outpatient (CLI) | payer BC, SELFPAY ==
[2022-05-21 18:19] LABS: Absolute Neutrophil Count 6.2 X10^3/uL (2.0-7.7); Basophil# 0.09 X10^3/uL; Basophil% 0.9 % (0-1); Eosinophil# 0.43 X10^3/uL; Eosinophils% 4.1 % (0-5); Hematocrit 47.6 % (37-47); Hemoglobin 15.1 g/dL (12.0-15.0); Lymphocyte % 27.9 % (19-41); Mean Corp Hgb Conc 31.7 g/dL (32-36); Mean Corpuscular Hgb 28.4 pg (27.0-32.0); Mean Corpuscular Volume 89.6 fL (81-99); Mean Platelet Vol. 10.1 fl (6.2-12.0); Monocyte# 0.73 X10^3/uL; NRBC Flagged by Analyzer 0 % (0-5); Neutrophil # 6.22 X10^3/uL (2.7-7.7); Neutrophil % 59.7 % (47-70); Platelet Count 265 K/mm3 (150-450); RBC Distribution Width CV 14.5 % (11.6-14.6); RBC Distribution Width SD 47.8 fl (35.1-43.9); Red Blood Count 5.31 M/mm3 (4.2-5.4); White Blood Count 10.4 K/mm3 (4.4-11.0)
[2022-05-21 18:34] LABS: Erythrocyte Sedimentation Rate 15 mm/hr (0-30)
== END 2022-05-21 23:59 | disposition home or self-care (01) ==
LOC: LAB 16:44
PROVIDERS: PCP Family Medicine; Visit Provider Specialist
DX: T84.84XA Pain due to internal orthopedic prosthetic devices, implants and grafts, initial encounter (principal); Z96.641 Presence of right artificial hip joint; X58.XXXA Exposure to other specified factors, initial encounter
CPT/HCPCS: 36415; 85025; 85652; 86140

== ENCOUNTER → 2022-11-25 | Outpatient (CLI) | payer BC, SELFPAY ==
--- NOTE | 2022-11-25 11:45 | BI_ITS ---
MAMMOGRAPHY - BILATERAL SCREENING REASON FOR EXAM: Female, 62 years old. Routine annual screening examination. PERTINENT HISTORY: Non-contributory. TECHNIQUE: Digital bilateral breast william (3D mammographic acquisition) in the CC and MLO projections. 2-D mediolateral oblique (MLO) and craniocaudad (CC) views of both breasts were obtained. CAD: Full Field Digital Mammography with Computer Added Detection was performed. COMPARISON: Screening mammogram from 11/24/2021, 11/22/2020. FINDINGS: Breast Composition: There are scattered areas of fibroglandular density. There are no dominant masses or suspicious calcifications. Stable small benign-appearing bilateral axillary lymph nodes. No other significant abnormalities are identified. There has been no significant change since the prior study. BI/SCRN MAMM (CAD)W/WILLIAM BILAT IMPRESSION: Stable bilateral screening mammogram. Yearly follow-up mammogram recommended. (A) ASSESSMENT CATEGORY: BIRADS Category 2: Benign. A letter regarding these results will be sent to the patient by the facility within 30 days. Approximately 10% of breast cancers are not detected by mammography. A normal mammogram should not delay biopsy of a clinically suspicious abnormality. Electronically Signed: Abhinav Bain DO at 13:50 EDT ,
== END | disposition home or self-care (01) ==
PROVIDERS: PCP Family Medicine; Referring Provider Physician Assistant; Visit Provider Physician Assistant
DX: Z12.31 Encounter for screening mammogram for malignant neoplasm of breast (principal)
CPT/HCPCS: 77063; 77067

== ENCOUNTER → 2023-02-10 | Outpatient (CLI) | payer BC, SELFPAY ==
--- NOTE | 2023-02-10 09:41 | VDLE_ITS ---
Reason For Study: BLE Edema RIGHT LEFT GSV is normal. HX GSV Ablation. CFV is compressible, spontaneous, phasic, CFV is compressible, spontaneous, phasic, competent and demonstrates normal competent, and demonstrates normal augmentation. augmentation. FV is compressible, phasic, and INCOMPETENT FV is compressible, spontaneous, phasic, for greater than 1.0 second. competent and demonstrates normal POP V is compressible, phasic, and augmentation. INCOMPETENT for greater than 1.0 second. POP V is compressible, spontaneous, phasic, T/P Trunk is compressible. competent and demonstrates normal PTV is compressible. augmentation. RT PerV is compressible. T/P Trunk is compressible. Procedure PTV is compressible. This is a venous duplex using B-mode, color LT PerV is compressible. flow and spectral Doppler. Exam performed in department. The exam was diagnostic. A preliminary report was called and/or faxed to Dr. Ceballos office. VL/Venous Duplex US - Raman Extrem Interpretation Summary Evidence for acute deep venous thrombosis bilateral lower extremities Incompetent right femoral and popliteal veins Patent and compressible right great saphenous vein History of ablation left great saphenous vein Ordering Physician: Gustavo Ceballos Referring Physician: Gustavo Ceballos Performed By: Christian Zendejas, RVT
== END | disposition home or self-care (01) ==
LOC: CVS 09:40
PROVIDERS: PCP Family Medicine; Referring Provider Family Medicine; Visit Provider Family Medicine
DX: R60.0 Localized edema (principal)
CPT/HCPCS: 93970

== ENCOUNTER → 2023-02-15 | Outpatient (CLI) | payer BC, SELFPAY ==
--- NOTE | 2023-02-15 06:15 | ECHOD_ITS ---
Reason For Study: CHEST PAIN Procedure This was a 2D Doppler, Color Flow transthoracic echocardiogram. Exam performed in department. Left Ventricle Normal left ventricle. The estimated ejection fraction is 55-60 %. Right Ventricle Normal right ventricle. The right ventricle is normal in size, function, and thickness. Atria The left atrium is mildly enlarged. Normal right atrium. Mitral Valve The mitral valve is structurally normal. No prolapse or stenosis seen. Mild (1+) mitral valve insufficiency. Tricuspid Valve Normal tricuspid valve. Mild tricuspid valve insufficiency. Aortic Valve The aortic valve is not well visualized in the short axis view. Pulmonic Valve The pulmonic valve is not well visualized. Great Vessels Normal aortic root. Pericardium/Pleural No pericardial effusion. MMode/2D Measurements & Calculations LVIDd: 3.6 cm IVSd: 1.8 cm Ao root diam: 3.7 cm LVIDs: 2.6 cm LVPWd: 1.2 cm FS: 28.2 % LAV(MOD-sp4): 77.6 ml LVAd ap4: 25.1 cm2 SV(MOD-sp4): 51.4 ml LVLd ap4: 7.6 cm EDV(MOD-sp4): 69.3 ml EDV(sp4-el): 70.1 ml LVAs ap4: 10.7 cm2 LVLs ap4: 5.7 cm ESV(MOD-sp4): 17.9 ml ESV(sp4-el): 17.1 ml EF(MOD-sp4): 74.1 % EF(sp4-el): 75.6 % SV(sp4-el): 53.0 ml LA A4 area: 25.1 cm2 LA dimension(2D): 4.4 cm RA A4 area: 15.0 cm2 TAPSE: 2.8 cm Time Measurements MV dec time: 0.25 sec Doppler Measurements & Calculations MV E max celso: 101.7 cm/sec Lat Peak E' Celso: 11.5 cm/sec Med Peak E' Celso: 5.2 cm/sec MV A max celso: 112.9 cm/sec E/E' lat: 8.8 E/E' med: 19.6 MV E/A: 0.90 MV V2 max: 133.8 cm/sec Ao V2 max: 156.6 cm/sec MV max P.2 mmHg MV dec slope: 431.4 cm/sec2 Ao max P.8 mmHg MV V2 mean: 79.3 cm/sec Ao V2 mean: 106.5 cm/sec MV mean P.9 mmHg Ao mean P.2 mmHg MV V2 VTI: 42.1 cm Ao V2 VTI: 36.7 cm AV (velocity ratio): 0.76 LV V1 max: 130.0 cm/sec PA V2 max: 138.6 cm/sec TR max celso: 299.6 cm/sec LV V1 max P.8 mmHg PA V2 mean: 92.2 cm/sec TR max P.9 mmHg LV V1 mean P.1 mmHg LV V1 mean: 82.1 cm/sec LV V1 VTI: 27.9 cm ECHO/Echo Complete Interpretation Summary The estimated ejection fraction is 55-60 %. Normal LV systolic function No prior echocardiogram to compare. Ordering Physician: Shelby Nicolas Referring Physician: Shelby Nicolas Performed By: Annabel Nair RCS
--- NOTE | 2023-02-15 15:46 | STRESSREP_ITS ---
Stress Test Report Pharmacologic/Lexiscan myocardial perfusion stress test. Indication; 62-year-old, with symptoms of chest pain and shortness of breath no previous cardiac history. Known history of COPD Significant family history of CAD Stress protocol: Resting EKG demonstrates. Normal sinus rhythm. 0.4 mg of regadenoson was infused per usual protocol followed by rapid intravenous saline flush injection continuous EKG monitoring was performed. The maximum heart rate attained was 93 bpm which was 58% of maximum predicted heart . Stress EKG showed[, no significant change from the resting EKG, with maximum heart rate of 107bpm. Arrhythmia: No arrhythmia demonstrated Symptoms: Patient had no symptoms of chest pain Blood pressure at rest: 112/78 mmHg blood pressure at the end of stress: 142 over 74 mm Myocardial perfusion protocol. 14.8 mCi ]of Technetium 99m Sestamibi was injected at rest. [ 0.4 mg ]of Regadenoson was infused per usual protocol peak infusion, 44.4 mCi ]of Technetium 99m sestamibi was injected. Stress images were obtained stress and rest images were reconstructed and compared in the short axis vertical and horizontal long axis. Gated images were also obtained Perfusion SPECT analysis: Review of the images demonstrate normal uptake of sestamibi at rest, post stress images demonstrate similar uptake of sestamibi to the resting images, homogeneous tracer uptake With no evidence of reversible myocardial ischemia. Gated SPECT analysis: The gated ejection fraction is [80 %]. Wall motion showed hyperdynamic left ventricle. Conclusion: Negative Lexiscan sestamibi myocardial perfusion study for reversible myocardial ischemia Hyperdynamic left ventricle. Patient has no symptoms to report, in particular no chest pain Jluis Kirk MD,FACC,[facility]
== END | disposition home or self-care (01) ==
PROVIDERS: PCP Family Medicine; Referring Provider Nurse Practitioner Family; Visit Provider Nurse Practitioner Family
DX: R07.89 Other chest pain (principal); R06.02 Shortness of breath
CPT/HCPCS: 78452; 93017; 93306; A9500; A4216; J2785

== ENCOUNTER 2023-07-05 13:59 | Outpatient (CLI) | payer BC, SELFPAY ==
[2023-07-05 14:50] LABS: Absolute Lymphocyte Count 1.57 X10^3/uL (0.83-4.51); Absolute Neutrophil Count 6.3 X10^3/uL (2.0-7.7); Basophil# 0.07 X10^3/uL; Basophil% 0.8 % (0-1); Eosinophils% 2.3 % (0-5); Hematocrit 37.1 % (37-47); Hemoglobin 11.8 g/dL (12.0-15.0); Lymphocyte # 1.57 X10^3/ul (0.83-4.51); Lymphocyte % 17.9 % (19-41); Mean Corp Hgb Conc 31.8 g/dL (32-36); Mean Corpuscular Hgb 27.6 pg (27.0-32.0); Mean Corpuscular Volume 86.7 fL (81-99); Mean Platelet Vol. 9.4 fl (6.2-12.0); Monocyte# 0.63 X10^3/uL; Monocyte% 7.2 % (0-10); NRBC Flagged by Analyzer 0 % (0-5); Neutrophil # 6.25 X10^3/uL (2.7-7.7); Neutrophil % 71.1 % (47-70); Platelet Count 268 K/mm3 (150-450); RBC Distribution Width CV 15.5 % (11.6-14.6); RBC Distribution Width SD 48.5 fl (35.1-43.9); Red Blood Count 4.28 M/mm3 (4.2-5.4); White Blood Count 8.8 K/mm3 (4.4-11.0)
[2023-07-05 15:09] LABS: AST(SGOT) 14 U/L (15-37); Alanine Aminotransfer ALT/SGPT 20 U/L (13-56); Albumin, Serum 2.5 g/dL (3.2-5.0); Alkaline Phosphatase 95 U/L (45-117); Anion Gap 8 (5-15); BUN 10 mg/dL (7-18); BUN/Creat Ratio 8.9 RATIO (10-20); Bilirubin, Direct 0.12 mg/dL (0.00-0.30); Calcium,Total 8.8 mg/dL (8.5-10.1); Chloride 108 mmol/L (98-107); Creatinine, Serum 1.12 mg/dL (0.55-1.02); EST Glomerular Filtration Rate 52 mL/min (>60); Est Glom Filt Rate - Afr Amer 63 mL/min (>60); Glucose 156 mg/dL (74-106); Potassium 3.2 mmol/L (3.5-5.1); Protein, Total 6.5 g/dL (6.4-8.2); Sodium Level 144 mmol/L (136-145)
[2023-07-05 22:45] LABS: Xtra Tube EP Lab EXTRA TUBE
== END 2023-07-05 14:00 | disposition home or self-care (01) ==
LOC: MEDOUTP 14:00
PROVIDERS: PCP Family Medicine
DX: M00.9 Pyogenic arthritis, unspecified (principal)
CPT/HCPCS: 36592; 80048; 80076; 85025; A4216

== ENCOUNTER 2023-07-12 09:55 | Outpatient (CLI) | payer BC, SELFPAY ==
[2023-07-12 10:35] LABS: Absolute Lymphocyte Count 1.55 X10^3/uL (0.83-4.51); Absolute Neutrophil Count 4.9 X10^3/uL (2.0-7.7); Basophil# 0.06 X10^3/uL; Basophil% 0.8 % (0-1); Eosinophil# 0.19 X10^3/uL; Eosinophils% 2.6 % (0-5); Hemoglobin 11.6 g/dL (12.0-15.0); Lymphocyte # 1.55 X10^3/ul (0.83-4.51); Lymphocyte % 21.2 % (19-41); Mean Corp Hgb Conc 31.4 g/dL (32-36); Mean Corpuscular Hgb 26.8 pg (27.0-32.0); Mean Corpuscular Volume 85.5 fL (81-99); Mean Platelet Vol. 9.2 fl (6.2-12.0); Monocyte# 0.55 X10^3/uL; Monocyte% 7.5 % (0-10); NRBC Flagged by Analyzer 0 % (0-5); Neutrophil # 4.93 X10^3/uL (2.7-7.7); Neutrophil % 67.4 % (47-70); Platelet Count 233 K/mm3 (150-450); RBC Distribution Width SD 46.7 fl (35.1-43.9); Red Blood Count 4.33 M/mm3 (4.2-5.4); White Blood Count 7.3 K/mm3 (4.4-11.0)
[2023-07-12 10:51] LABS: AST(SGOT) 14 U/L (15-37); Alanine Aminotransfer ALT/SGPT 16 U/L (13-56); Albumin, Serum 2.9 g/dL (3.2-5.0); Alkaline Phosphatase 110 U/L (45-117); Anion Gap 5 (5-15); BUN 11 mg/dL (7-18); BUN/Creat Ratio 12.9 RATIO (10-20); Bilirubin, Direct 0.13 mg/dL (0.00-0.30); Calcium,Total 8.9 mg/dL (8.5-10.1); Chloride 107 mmol/L (98-107); Creatinine, Serum 0.86 mg/dL (0.55-1.02); EST Glomerular Filtration Rate 71 mL/min (>60); Est Glom Filt Rate - Afr Amer 86 mL/min (>60); Globulin 4.1 g/dL (2.2-4.2); Glucose 92 mg/dL (74-106); Potassium 3.5 mmol/L (3.5-5.1); Sodium Level 141 mmol/L (136-145)
== END 2023-07-12 09:56 | disposition home or self-care (01) ==
LOC: MEDOUTP 09:55
PROVIDERS: PCP Family Medicine
DX: M00.9 Pyogenic arthritis, unspecified (principal)
CPT/HCPCS: 36592; 80048; 80076; 85025; A4216

== ENCOUNTER 2023-07-19 14:16 | Outpatient (CLI) | payer BC, SELFPAY ==
[2023-07-19 15:02] LABS: Absolute Lymphocyte Count 1.77 X10^3/uL (0.83-4.51); Basophil# 0.05 X10^3/uL; Basophil% 0.8 % (0-1); Eosinophil# 0.21 X10^3/uL; Eosinophils% 3.2 % (0-5); Hematocrit 35.5 % (37-47); Hemoglobin 11.2 g/dL (12.0-15.0); Lymphocyte # 1.77 X10^3/ul (0.83-4.51); Lymphocyte % 26.9 % (19-41); Mean Corp Hgb Conc 31.5 g/dL (32-36); Mean Corpuscular Hgb 26.9 pg (27.0-32.0); Mean Corpuscular Volume 85.3 fL (81-99); Monocyte# 0.52 X10^3/uL; Monocyte% 7.9 % (0-10); NRBC Flagged by Analyzer 0 % (0-5); Neutrophil # 3.99 X10^3/uL (2.7-7.7); Neutrophil % 60.7 % (47-70); Platelet Count 241 K/mm3 (150-450); RBC Distribution Width CV 15.1 % (11.6-14.6); RBC Distribution Width SD 46.9 fl (35.1-43.9); Red Blood Count 4.16 M/mm3 (4.2-5.4); White Blood Count 6.6 K/mm3 (4.4-11.0)
[2023-07-19 15:18] LABS: AST(SGOT) 11 U/L (15-37); Alanine Aminotransfer ALT/SGPT 13 U/L (13-56); Albumin, Serum 2.9 g/dL (3.2-5.0); Alkaline Phosphatase 112 U/L (45-117); Anion Gap 4 (5-15); BUN 13 mg/dL (7-18); BUN/Creat Ratio 13.5 RATIO (10-20); Calcium,Total 8.9 mg/dL (8.5-10.1); Chloride 108 mmol/L (98-107); Creatinine, Serum 0.96 mg/dL (0.55-1.02); EST Glomerular Filtration Rate 62 mL/min (>60); Est Glom Filt Rate - Afr Amer 75 mL/min (>60); Globulin 4.2 g/dL (2.2-4.2); Glucose 114 mg/dL (74-106); Potassium 3.2 mmol/L (3.5-5.1); Protein, Total 7.1 g/dL (6.4-8.2); Sodium Level 143 mmol/L (136-145)
== END 2023-07-19 14:17 | disposition home or self-care (01) ==
LOC: MEDOUTP 14:17
PROVIDERS: PCP Family Medicine
DX: M00.9 Pyogenic arthritis, unspecified (principal)
CPT/HCPCS: 36592; 80048; 80076; 85025; A4216

== ENCOUNTER 2023-07-26 15:18 | Outpatient (CLI) | payer BC, SELFPAY ==
[2023-07-26 15:40] VITALS: BP 161/81; PULSE 76; RESP 18
[2023-07-26 15:49] LABS: Absolute Lymphocyte Count 1.59 X10^3/uL (0.83-4.51); Absolute Neutrophil Count 4.9 X10^3/uL (2.0-7.7); Basophil# 0.04 X10^3/uL; Basophil% 0.6 % (0-1); Eosinophils% 2.8 % (0-5); Hematocrit 34.6 % (37-47); Lymphocyte # 1.59 X10^3/ul (0.83-4.51); Lymphocyte % 21.9 % (19-41); Mean Corp Hgb Conc 31.8 g/dL (32-36); Mean Corpuscular Hgb 26.9 pg (27.0-32.0); Mean Corpuscular Volume 84.6 fL (81-99); Mean Platelet Vol. 9.1 fl (6.2-12.0); Monocyte% 6.9 % (0-10); NRBC Flagged by Analyzer 0 % (0-5); Neutrophil % 67.2 % (47-70); Platelet Count 249 K/mm3 (150-450); RBC Distribution Width CV 15.2 % (11.6-14.6); RBC Distribution Width SD 46.4 fl (35.1-43.9); Red Blood Count 4.09 M/mm3 (4.2-5.4); White Blood Count 7.3 K/mm3 (4.4-11.0)
[2023-07-26 16:12] LABS: AST(SGOT) 15 U/L (15-37); Alanine Aminotransfer ALT/SGPT 15 U/L (13-56); Alkaline Phosphatase 119 U/L (45-117); Anion Gap 6 (5-15); BUN 11 mg/dL (7-18); BUN/Creat Ratio 11.7 RATIO (10-20); Bilirubin, Direct 0.11 mg/dL (0.00-0.30); Calcium,Total 8.8 mg/dL (8.5-10.1); Chloride 108 mmol/L (98-107); Creatinine, Serum 0.94 mg/dL (0.55-1.02); EST Glomerular Filtration Rate 64 mL/min (>60); Est Glom Filt Rate - Afr Amer 77 mL/min (>60); Globulin 4.1 g/dL (2.2-4.2); Glucose 130 mg/dL (74-106); Protein, Total 7.1 g/dL (6.4-8.2); Sodium Level 144 mmol/L (136-145)
== END 2023-07-26 15:19 | disposition home or self-care (01) ==
LOC: MEDOUTP 15:18
PROVIDERS: PCP Family Medicine; Referring Provider Internal Medicine Infectious Disease; Visit Provider Internal Medicine Infectious Disease
DX: Z45.2 Encounter for adjustment and management of vascular access device (principal); M00.9 Pyogenic arthritis, unspecified
CPT/HCPCS: 36415; 36592; 80048; 80076; 85025; A4216

== ENCOUNTER 2023-08-02 14:04 | Outpatient (CLI) | payer BC, SELFPAY ==
[2023-08-02 14:53] LABS: Absolute Lymphocyte Count 1.73 X10^3/uL (0.83-4.51); Absolute Neutrophil Count 5.2 X10^3/uL (2.0-7.7); Basophil# 0.07 X10^3/uL; Basophil% 0.9 % (0-1); Eosinophil# 0.19 X10^3/uL; Eosinophils% 2.4 % (0-5); Hematocrit 34.7 % (37-47); Lymphocyte # 1.73 X10^3/ul (0.83-4.51); Lymphocyte % 22.1 % (19-41); Mean Corp Hgb Conc 31.7 g/dL (32-36); Mean Corpuscular Hgb 26.4 pg (27.0-32.0); Mean Corpuscular Volume 83.4 fL (81-99); Mean Platelet Vol. 9.5 fl (6.2-12.0); Monocyte# 0.58 X10^3/uL; Monocyte% 7.4 % (0-10); NRBC Flagged by Analyzer 0 % (0-5); Neutrophil # 5.23 X10^3/uL (2.7-7.7); Neutrophil % 66.8 % (47-70); Platelet Count 239 K/mm3 (150-450); RBC Distribution Width CV 15.1 % (11.6-14.6); RBC Distribution Width SD 45.6 fl (35.1-43.9); Red Blood Count 4.16 M/mm3 (4.2-5.4); White Blood Count 7.8 K/mm3 (4.4-11.0)
[2023-08-02 15:14] LABS: AST(SGOT) 16 U/L (15-37); Alanine Aminotransfer ALT/SGPT 14 U/L (13-56); Albumin, Serum 3.2 g/dL (3.2-5.0); Alkaline Phosphatase 120 U/L (45-117); Anion Gap 4 (5-15); BUN 14 mg/dL (7-18); BUN/Creat Ratio 16.6 RATIO (10-20); Bilirubin, Direct 0.11 mg/dL (0.00-0.30); Calcium,Total 9.1 mg/dL (8.5-10.1); Chloride 107 mmol/L (98-107); Creatinine, Serum 0.84 mg/dL (0.55-1.02); EST Glomerular Filtration Rate 72 mL/min (>60); Est Glom Filt Rate - Afr Amer 88 mL/min (>60); Globulin 4.2 g/dL (2.2-4.2); Glucose 108 mg/dL (74-106); Potassium 3.1 mmol/L (3.5-5.1); Protein, Total 7.4 g/dL (6.4-8.2); Sodium Level 142 mmol/L (136-145)
== END 2023-08-02 14:05 | disposition home or self-care (01) ==
LOC: MEDOUTP 14:04
PROVIDERS: PCP Family Medicine; Referring Provider Internal Medicine Infectious Disease; Visit Provider Internal Medicine Infectious Disease
DX: M00.9 Pyogenic arthritis, unspecified (principal)
CPT/HCPCS: 36592; 80048; 80076; 85025; A4216

== ENCOUNTER 2023-08-09 14:19 | Outpatient (CLI) | payer BC, SELFPAY ==
[2023-08-09 15:02] LABS: Absolute Lymphocyte Count 1.96 X10^3/uL (0.83-4.51); Absolute Neutrophil Count 4.9 X10^3/uL (2.0-7.7); Basophil# 0.07 X10^3/uL; Basophil% 0.9 % (0-1); Eosinophil# 0.25 X10^3/uL; Eosinophils% 3.1 % (0-5); Hematocrit 35.8 % (37-47); Hemoglobin 11.2 g/dL (12.0-15.0); Lymphocyte # 1.96 X10^3/ul (0.83-4.51); Lymphocyte % 24.6 % (19-41); Mean Corp Hgb Conc 31.3 g/dL (32-36); Mean Corpuscular Hgb 26.3 pg (27.0-32.0); Mean Platelet Vol. 9.6 fl (6.2-12.0); Monocyte# 0.71 X10^3/uL; Monocyte% 8.9 % (0-10); NRBC Flagged by Analyzer 0 % (0-5); Neutrophil # 4.94 X10^3/uL (2.7-7.7); Neutrophil % 62.1 % (47-70); Platelet Count 243 K/mm3 (150-450); RBC Distribution Width CV 15.3 % (11.6-14.6); RBC Distribution Width SD 46.5 fl (35.1-43.9); Red Blood Count 4.26 M/mm3 (4.2-5.4)
[2023-08-09 15:18] LABS: AST(SGOT) 17 U/L (15-37); Alanine Aminotransfer ALT/SGPT 18 U/L (13-56); Albumin, Serum 3.2 g/dL (3.2-5.0); Alkaline Phosphatase 123 U/L (45-117); Anion Gap 4 (5-15); BUN 13 mg/dL (7-18); BUN/Creat Ratio 14.5 RATIO (10-20); Bilirubin, Direct 0.11 mg/dL (0.00-0.30); Calcium,Total 9.1 mg/dL (8.5-10.1); Chloride 107 mmol/L (98-107); EST Glomerular Filtration Rate 67 mL/min (>60); Est Glom Filt Rate - Afr Amer 81 mL/min (>60); Globulin 4.2 g/dL (2.2-4.2); Glucose 114 mg/dL (74-106); Potassium 3.5 mmol/L (3.5-5.1); Protein, Total 7.4 g/dL (6.4-8.2); Sodium Level 141 mmol/L (136-145)
== END 2023-08-09 14:20 | disposition home or self-care (01) ==
LOC: MEDOUTP 14:19
PROVIDERS: PCP Family Medicine; Referring Provider Internal Medicine Infectious Disease; Visit Provider Internal Medicine Infectious Disease
DX: M00.9 Pyogenic arthritis, unspecified (principal)
CPT/HCPCS: 36592; 80048; 80076; 85025; A4216

== ENCOUNTER 2023-08-16 14:18 | Outpatient (CLI) | payer BC, SELFPAY ==
[2023-08-16 14:54] LABS: Absolute Lymphocyte Count 1.87 X10^3/uL (0.83-4.51); Absolute Neutrophil Count 4.6 X10^3/uL (2.0-7.7); Basophil# 0.08 X10^3/uL; Basophil% 1.1 % (0-1); Eosinophil# 0.23 X10^3/uL; Eosinophils% 3.1 % (0-5); Hematocrit 35.2 % (37-47); Lymphocyte # 1.87 X10^3/ul (0.83-4.51); Lymphocyte % 25.1 % (19-41); Mean Corp Hgb Conc 31.3 g/dL (32-36); Mean Corpuscular Hgb 26.3 pg (27.0-32.0); Mean Corpuscular Volume 84.2 fL (81-99); Mean Platelet Vol. 9.2 fl (6.2-12.0); Monocyte# 0.57 X10^3/uL; Monocyte% 7.7 % (0-10); NRBC Flagged by Analyzer 0 % (0-5); Neutrophil # 4.64 X10^3/uL (2.7-7.7); Neutrophil % 62.3 % (47-70); Platelet Count 264 K/mm3 (150-450); RBC Distribution Width CV 15.4 % (11.6-14.6); RBC Distribution Width SD 46.5 fl (35.1-43.9); Red Blood Count 4.18 M/mm3 (4.2-5.4); White Blood Count 7.4 K/mm3 (4.4-11.0)
[2023-08-16 15:16] LABS: AST(SGOT) 19 U/L (15-37); Alanine Aminotransfer ALT/SGPT 19 U/L (13-56); Albumin, Serum 3.3 g/dL (3.2-5.0); Alkaline Phosphatase 121 U/L (45-117); Anion Gap 4 (5-15); BUN 14 mg/dL (7-18); BUN/Creat Ratio 16.1 RATIO (10-20); Bilirubin, Direct 0.15 mg/dL (0.00-0.30); Calcium,Total 9.4 mg/dL (8.5-10.1); Chloride 107 mmol/L (98-107); Creatinine, Serum 0.87 mg/dL (0.55-1.02); EST Glomerular Filtration Rate 70 mL/min (>60); Est Glom Filt Rate - Afr Amer 84 mL/min (>60); Globulin 4.3 g/dL (2.2-4.2); Glucose 99 mg/dL (74-106); Potassium 3.4 mmol/L (3.5-5.1); Protein, Total 7.6 g/dL (6.4-8.2); Sodium Level 140 mmol/L (136-145)
== END 2023-08-16 14:19 | disposition home or self-care (01) ==
LOC: MEDOUTP 14:18
PROVIDERS: PCP Family Medicine; Referring Provider Internal Medicine Infectious Disease; Visit Provider Internal Medicine Infectious Disease
DX: M00.9 Pyogenic arthritis, unspecified (principal); B99.9 Unspecified infectious disease
CPT/HCPCS: 36592; 80048; 80076; 85025; 86140; A4216

== ENCOUNTER 2023-08-20 08:22 | Emergency (ER) | payer BC, SELFPAY ==
[2023-08-20 08:23] VITALS: BP 207/101; PULSE 83; RESP 17; TEMP 35.8; O2SAT 95
--- NOTE | 2023-08-20 08:36 | VDLE_ITS ---
Reason For Study: Left leg swelling RIGHT LEFT CFV is compressible, spontaneous, phasic, GSV is normal. competent and demonstrates normal CFV is compressible, spontaneous, phasic, augmentation. competent, and demonstrates normal Procedure augmentation. This is a venous duplex using B-mode, color FV is compressible, spontaneous, phasic, flow and spectral Doppler. competent and demonstrates normal Exam performed portable in ED. augmentation. A preliminary report was called and/or faxed POP V is compressible, spontaneous, phasic, to Dr. Munson. competent and demonstrates normal augmentation. T/P Trunk is compressible. PTV is compressible. LT PerV is compressible. VL/Venous Duplex US, Unilateral Interpretation Summary There is no evidence of left lower extremity deep vein thrombosis. Left great s aphenous vein appears patent and compressible segmentally. Normal flow patterns right common femoral vein Ordering Physician: Hussein Munson Referring Physician: Gustavo Ceballos Performed By: Queenie Palomares RVT
--- NOTE | 2023-08-20 08:36 | RAD_ITS ---
STUDY: X-RAY - LEFT TIBIA AND FIBULA REASON FOR EXAM: Female, 63 years old. Swelling TECHNIQUE: 2 view(s) of the tibia and fibula were obtained. COMPARISON: None. FINDINGS: Normal visualized tibia. Normal visualized fibula. There is evidence of prior total knee replacement. Diffuse soft tissue swelling. RAD/Tibia & Fibula 2 Views IMPRESSION: Diffuse soft tissue swelling. Status post total knee replacement. Electronically Signed: Zafar Abernathy MD at 9:11 EDT ,
--- NOTE | 2023-08-20 08:37 | ED.VIS.LOWEX ---
HPI History of Present Illness Chief Complaint: Lower Extremity Injury Informant: patient Narrative Narrative: 63-year-old female presenting to the emergency room stating that she is concerned for blood clot of the left leg. 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 She states that she also has pain in the left foot she was seen in the [facility] for and notes that she has a fallen arch. She has a chronic wound on the plantar surface where the skin has become thickened. Patient denies any fevers. She notes recently over the past several days she has had swelling over the proximal third anteriorly of the left leg. She denies any swelling of the knee any rashes warmth redness. She notes no significant pain in the calf. She notes the foot is not swollen. She states she called her orthopedist and was told to come to emergency for an ultrasound. Patient states that she has had prior DVT and a history of an IVC filter placed. She is not currently on anticoagulants. [facility] Medical History Restless leg syndrome Venous (peripheral) insufficiency History of Graves' disease Diabetes mellitus Renal insufficiency Presence of IVC filter Obesity Superficial thrombophlebitis History of DVT (deep vein thrombosis) Diverticulosis of colon without diverticulitis Home Medications ?Medication ?Instructions ?Recorded ?Last Taken ?Type levothyroxine 175 mcg tablet 175 mcg PO DAILY thyroid 09/01/13 09/06/19 History omeprazole 20 mg capsule,delayed 20 mg PO DAILY gerd 12/13/16 09/06/19 History release cholecalciferol (vitamin D3) 125 5,000 unit PO DAILY@1200 supplement 01/25/17 01/27/19 History mcg (5,000 unit) capsule omega-3 fatty acids-fish oil 340 2,000 mg PO LUNCH supplement 03/21/18 01/27/19 History mg-1,000 mg capsule (Fish Oil) lisinopril 10 mg tablet 10 mg PO LUNCH bp 08/01/18 09/06/19 History venlafaxine 150 mg 1 tab PO DAILY depression 08/01/18 01/26/19 History capsule,extended release 24 hr venlafaxine 75 mg capsule,extended 1 tab PO DAILY depression 08/01/18 01/26/19 History release 24 hr (Effexor XR) aspirin 81 mg tablet,delayed 81 mg PO LUNCH supplement 05/02/19 Unknown History release famotidine 20 mg tablet 40 mg PO QHS gerd 05/02/19 Unknown History ferrous sulfate 325 mg (65 mg 325 mg PO DAILY SUPPLEMENT 08/30/19 Unknown History iron) tablet Doxycycline 100 mg PO BID infection 11/28/19 Unknown History ascorbic acid (vitamin C) 500 mg 500 mg PO LUNCH 11/28/19 Unknown History tablet acetaminophen 500 mg tablet 1,000 mg (2 x 500 mg) PO Q8 12/04/19 Unknown Rx pregabalin 150 mg capsule (Lyrica) 150 mg PO TID 12/02/21 Unknown History oxycodone-acetaminophen 5 mg-325 1 tab PO Q6H 7 days #28 tabs 02/27/22 Unknown Rx mg tablet (Percocet) tramadol 50 mg tablet 50 - 100 mg PO Q6H 02/27/22 Unknown History Allergy/AdvReac Type Severity Reaction Status Date / Time hydrocodone bitartrate (From Allergy Intermediate Other Verified 02/27/22 11:27 Lortab) etodolac Allergy Unknown Verified 02/27/22 11:27 misoprostol Allergy Unknown Verified 02/27/22 11:27 celecoxib AdvReac Intermediate Other Verified 02/27/22 11:27 diclofenac (Diclofenac) AdvReac Mild Abd Verified 02/27/22 11:27 cramps/diarrhea ketorolac tromethamine (From AdvReac Mild Other Verified 02/27/22 11:27 Toradol) metoclopramide HCl (From AdvReac Mild Other Verified 02/27/22 11:27 Reglan) atorvastatin (From Lipitor) AdvReac Other Verified 02/27/22 11:27 clindamycin AdvReac Mucosal Verified 02/27/22 11:27 lesions Surgical History History of colonoscopy Hx of total knee replacement Social History Smoking Status: Former smoker substance use type: does not use ROS ROS ED Constitutional Constitutional ED: Denies chills or weight loss Eyes Eyes: Denies change in vision or diplopia ENT ENT ED: Denies ear pain, rhinorrhea or sore throat Cardiovascular Cardiovascular: Denies chest pain, orthopnea, palpitations or racing heartbeat Respiratory/Chest Respiratory/Chest: Denies cough, dyspnea or orthopnea Gastrointestinal Gastrointestinal: Denies abdominal pain, diarrhea, nausea or vomiting Genitourinary Genitourinary ED: Denies dysuria, hematuria or urinary frequency Musculoskeletal Musculoskeletal: Reports other Details: Anterior left proximal third leg swelling. Left foot pain. ; Denies arthralgias or myalgias Integumentary Denies abscess or rash Neurologic Neurologic: Denies headache(s) or weakness Psychiatric Psychiatric: Denies anxiety, depression, suicidal ideation or suicidal thoughts Endocrine Endocrinology: Denies polydipsia, polyphagia or polyuria Allergic/Immunologic Allergic/Immunologic ED: Denies mouth swelling, tongue swelling or urticaria EXAM Physical Exam Const Vital Signs: 08/20/23 08:23 Temperature 96.5 F L Temperature Source Temporal Pulse Rate 83 Respiratory Rate 17 Blood Pressure 207/101 H Blood Pressure Mean 136 Pulse Ox 95 Oxygen Delivery Method Room Air Positive well nourished, well developed and obese General Appearance ED: well developed Nutritional Appearance: obese HEENT Reports normocephalic, head/scalp atraumatic and moist mucous membranes Eyes PERRL and EOMs intact bilaterally Neck no lymphadenopathy, supple and no JVD Resp normal respiratory effort and clear to auscultation bilaterally Cardio regular rate, regular rhythm and no murmurs GI normal to inspection, nondistended, normoactive bowel sounds and non-tender Palpation: soft Back/Spine no CVA tenderness and normal ROM Extremity Extremity Narrative: There are bilateral knee surgical incisions with the right having multiple revisions and healing by secondary intention. I do not appreciate any increased warmth or redness. The left proximal anterior leg demonstrates a mild swelling. There is no fluctuance or tenderness. Calf is nontender. No palpable cords. The left foot is not swollen. There is an area of callus formation over the medial mid plantar surface of the left foot. No evidence of secondary infection there. Left knee demonstrates no effusion increased warmth or redness. General Extremety ED: Negative for edema General Extremity: Negative for edema Neuro oriented x3 and CN's II-XII intact bilaterally Sensorium / Orientation: alert Motor Exam: strength 5/5 throughout Psych mental status grossly normal Mood & Affect: Negative for depressed or tearful Skin no rashes or lesions noted and no wounds MDM MDM MDM Narrative Medical decision making narrative: Duplex ultrasound of the left lower extremity is negative for DVT. My independent interpretation of the tib-fib there is no acute process. Radiology concurs. Not seen any evidence of active infection of the extremity. Not seen any pathology with the left knee. This point patient be discharged home. She will follow-up with her orthopedist to evaluate this in person. History & Record Review Discussion w/independent historian: Patient Radiography Diagnostic Testing: Clinical Impression(s) from Imaging Studies Tibia/Fibula X-Ray 08/20/23 08:36 IMPRESSION: Diffuse soft tissue swelling. Status post total knee replacement. Electronically Signed: Zafar Abernathy MD at 9:11 EDT , Discharge Plan Triage Chief Complaint: Lower Extremity Injury ED Provider: Hussein Munson Dx/Rx/DC Orders Prescriptions: No Action pregabalin [Lyrica] 150 mg capsule 150 mg PO TID levothyroxine 175 MCG tablet 175 mcg PO DAILY omeprazole 20 MG capsule 20 mg PO DAILY cholecalciferol (vitamin D3) 5,000 UNIT capsule 5,000 unit PO DAILY@1200 Fish Oil 1 EACH capsule 2,000 mg PO LUNCH lisinopril 10 MG tablet 10 mg PO LUNCH venlafaxine [Effexor XR] 75 MG capsule,extended release 24hr 1 tab PO DAILY venlafaxine 150 MG capsule,extended release 24hr 1 tab PO DAILY aspirin 81 MG tablet,delayed release (DR/EC) 81 mg PO LUNCH famotidine 20 MG tablet 40 mg PO QHS ferrous sulfate 325 MG tablet 325 mg PO DAILY ascorbic acid (vitamin C) 500 MG tablet 500 mg PO LUNCH Doxycycline 100 mg PO BID acetaminophen 500 MG tablet 1,000 mg PO Q8 0RF Rx Instructions: Do not take more than 3000 mg Tylenol in a 24-hour period. tramadol 50 mg tablet 50 - 100 mg PO Q6H Patient Comments: TAKE 1 TO 2 TABLETS BY MOUTH EVERY 6 HOURS oxycodone-acetaminophen [Percocet] 5-325 mg tablet 1 tab PO Q6H 7 Days Qty: 28 0RF Rx Instructions: The patient is having right hip surgery on March 10. The patient will see her orthopod about moving of the surgery. Patient has end-stage arthritis, this is the reason for the 7 days of Percocet. Primary Care Provider: Gustavo Ceballos Referrals: Gustavo Ceballos MD [Primary Care Provider] - Print Language: Prydeinig
== END 2023-08-20 09:30 | disposition home or self-care (01) ==
PROVIDERS: Emergency Provider Emergency Medicine; PCP Family Medicine; Visit Provider Emergency Medicine
DX: S89.92XA Unspecified injury of left lower leg, initial encounter (principal); E11.9 Type 2 diabetes mellitus without complications; Z87.891 Personal history of nicotine dependence; Z86.718 Personal history of other venous thrombosis and embolism; E66.9 Obesity, unspecified; Z98.890 Other specified postprocedural states; Z96.653 Presence of artificial knee joint, bilateral; X58.XXXA Exposure to other specified factors, initial encounter
CPT/HCPCS: 73590; 93971; 99282

== ENCOUNTER 2023-08-23 14:27 | Outpatient (CLI) | payer BC, SELFPAY ==
[2023-08-23] MEDS: 0.9% NaCl Peripheral Flush Adult/Peds IV ×3 (14:50→14:52)
[2023-08-23 14:58] LABS: Absolute Lymphocyte Count 1.67 X10^3/uL (0.83-4.51); Absolute Neutrophil Count 4.4 X10^3/uL (2.0-7.7); Basophil# 0.05 X10^3/uL; Basophil% 0.7 % (0-1); Eosinophil# 0.26 X10^3/uL; Eosinophils% 3.8 % (0-5); Hematocrit 35.5 % (37-47); Lymphocyte # 1.67 X10^3/ul (0.83-4.51); Lymphocyte % 24.2 % (19-41); Mean Corpuscular Hgb 26.3 pg (27.0-32.0); Mean Corpuscular Volume 84.7 fL (81-99); Mean Platelet Vol. 8.8 fl (6.2-12.0); Monocyte# 0.51 X10^3/uL; Monocyte% 7.4 % (0-10); NRBC Flagged by Analyzer 0 % (0-5); Neutrophil # 4.39 X10^3/uL (2.7-7.7); Neutrophil % 63.6 % (47-70); Platelet Count 232 K/mm3 (150-450); RBC Distribution Width CV 15.5 % (11.6-14.6); RBC Distribution Width SD 47.2 fl (35.1-43.9); Red Blood Count 4.19 M/mm3 (4.2-5.4); White Blood Count 6.9 K/mm3 (4.4-11.0)
[2023-08-23 15:23] LABS: AST(SGOT) 22 U/L (15-37); Alanine Aminotransfer ALT/SGPT 22 U/L (13-56); Albumin, Serum 3.3 g/dL (3.2-5.0); Alkaline Phosphatase 123 U/L (45-117); Anion Gap 5 (5-15); BUN 12 mg/dL (7-18); BUN/Creat Ratio 13.6 RATIO (10-20); Bilirubin, Direct 0.12 mg/dL (0.00-0.30); Calcium,Total 9.3 mg/dL (8.5-10.1); Chloride 107 mmol/L (98-107); Creatinine, Serum 0.88 mg/dL (0.55-1.02); EST Glomerular Filtration Rate 68 mL/min (>60); Est Glom Filt Rate - Afr Amer 83 mL/min (>60); Globulin 4.1 g/dL (2.2-4.2); Glucose 105 mg/dL (74-106); Potassium 3.4 mmol/L (3.5-5.1); Protein, Total 7.4 g/dL (6.4-8.2); Sodium Level 142 mmol/L (136-145)
== END 2023-08-23 23:59 | disposition home or self-care (01) ==
LOC: MEDOUTP 14:27
PROVIDERS: PCP Family Medicine; Referring Provider Internal Medicine Infectious Disease; Visit Provider Internal Medicine Infectious Disease
DX: M00.9 Pyogenic arthritis, unspecified (principal)
CPT/HCPCS: 36592; 80048; 80076; 85025; A4216

== ENCOUNTER 2023-08-31 14:19 | Outpatient (CLI) | payer BC, SELFPAY ==
[2023-08-31 14:54] LABS: Absolute Lymphocyte Count 1.62 X10^3/uL (0.83-4.51); Absolute Neutrophil Count 4.2 X10^3/uL (2.0-7.7); Basophil# 0.07 X10^3/uL; Basophil% 1.1 % (0-1); Eosinophils% 4.5 % (0-5); Hematocrit 35.1 % (37-47); Hemoglobin 10.9 g/dL (12.0-15.0); Lymphocyte # 1.62 X10^3/ul (0.83-4.51); Lymphocyte % 24.3 % (19-41); Mean Corp Hgb Conc 31.1 g/dL (32-36); Mean Corpuscular Hgb 26.3 pg (27.0-32.0); Mean Corpuscular Volume 84.6 fL (81-99); Mean Platelet Vol. 9.5 fl (6.2-12.0); Monocyte# 0.46 X10^3/uL; Monocyte% 6.9 % (0-10); NRBC Flagged by Analyzer 0 % (0-5); Neutrophil # 4.18 X10^3/uL (2.7-7.7); Neutrophil % 62.7 % (47-70); Platelet Count 231 K/mm3 (150-450); RBC Distribution Width CV 15.4 % (11.6-14.6); RBC Distribution Width SD 46.5 fl (35.1-43.9); Red Blood Count 4.15 M/mm3 (4.2-5.4); White Blood Count 6.7 K/mm3 (4.4-11.0)
[2023-08-31 15:07] LABS: AST(SGOT) 21 U/L (15-37); Alanine Aminotransfer ALT/SGPT 22 U/L (13-56); Albumin, Serum 3.1 g/dL (3.2-5.0); Alkaline Phosphatase 129 U/L (45-117); Anion Gap 4 (5-15); BUN 12 mg/dL (7-18); BUN/Creat Ratio 13.9 RATIO (10-20); Bilirubin, Direct 0.08 mg/dL (0.00-0.30); Calcium,Total 8.8 mg/dL (8.5-10.1); Chloride 110 mmol/L (98-107); Creatinine, Serum 0.86 mg/dL (0.55-1.02); EST Glomerular Filtration Rate 71 mL/min (>60); Est Glom Filt Rate - Afr Amer 86 mL/min (>60); Glucose 131 mg/dL (74-106); Potassium 3.1 mmol/L (3.5-5.1); Protein, Total 7.1 g/dL (6.4-8.2); Sodium Level 140 mmol/L (136-145)
== END 2023-08-31 23:59 | disposition home or self-care (01) ==
LOC: MEDOUTP 14:19
PROVIDERS: PCP Family Medicine; Referring Provider Internal Medicine Infectious Disease; Visit Provider Internal Medicine Infectious Disease
DX: M00.9 Pyogenic arthritis, unspecified (principal)
CPT/HCPCS: 36592; 80048; 80076; 85025; 86140; A4216

== ENCOUNTER 2023-09-06 14:12 | Outpatient (CLI) | payer BC, SELFPAY | END 2023-09-06 23:59 | disposition home or self-care (01) | LOC: MEDOUTP 14:13 | PROVIDERS: PCP Family Medicine; Referring Provider Internal Medicine Infectious Disease; Visit Provider Internal Medicine Infectious Disease | DX: B99.9 Unspecified infectious disease (principal) ==

== ENCOUNTER → 2023-12-14 | Outpatient (CLI) | payer BC, SELFPAY ==
--- NOTE | 2023-12-14 09:59 | BI_ITS ---
MAMMOGRAPHY - BILATERAL SCREENING REASON FOR EXAM: Female, 63 years old. Routine annual screening examination. PERTINENT HISTORY: Non-contributory. TECHNIQUE: Digital bilateral breast william (3D mammographic acquisition) in the CC and MLO projections. 2-D mediolateral oblique (MLO) and craniocaudad (CC) views of both breasts were obtained. CAD: Full Field Digital Mammography with Computer Added Detection was performed. COMPARISON: Comparison is made with prior study November 25, 2022 and November 24, 2021. FINDINGS: Breast Composition: There are scattered areas of fibroglandular density. There are no dominant masses or suspicious calcifications. Stable small benign-appearing bilateral axillary lymph nodes. No other significant abnormalities are identified. There has been no significant change since the prior study. BI/SCRN MAMM (CAD)W/WILLIAM BILAT IMPRESSION: Stable bilateral screening mammogram. Yearly follow-up mammogram recommended. (A) ASSESSMENT CATEGORY: BIRADS Category 2: Benign. A letter regarding these results will be sent to the patient by the facility within 30 days. Approximately 10% of breast cancers are not detected by mammography. A normal mammogram should not delay biopsy of a clinically suspicious abnormality. [id number] Electronically Signed: Zafar Abernathy MD at 11:19 EDT ,
== END | disposition home or self-care (01) ==
LOC: OPBI 09:58
PROVIDERS: PCP Family Medicine; Referring Provider Obstetrics & Gynecology; Visit Provider Obstetrics & Gynecology
DX: Z12.31 Encounter for screening mammogram for malignant neoplasm of breast (principal)
CPT/HCPCS: 77063; 77067

== ENCOUNTER → 2024-12-14 | Outpatient (CLI) | payer BC, SELFPAY ==
--- NOTE | 2024-12-14 07:01 | BI_ITS ---
EXAM: SCRN MAMM (CAD)W/WILLIAM BILAT DATE: 12/14/2024 CLINICAL HISTORY: F, Age 64 y/o , SCREENING No family history. TECHNIQUE: Procedure Code: [id number] Modality: MG Procedure: SCRN MAMM (CAD)W/WILLIAM BILAT COMPARISON: Prior exam(s) dated December 14, 2023. FINDINGS: TISSUE DENSITY: The breasts are almost entirely fatty. Bilateral Breast Mammographic Findings: No significant masses, calcifications or other abnormalities are identified. Stable benign-appearing bilateral axillary lymph nodes. No suspicious masses, areas of developing architectural distortion, or suspicious calcifications. There has been no significant interval change. BI/SCRN MAMM (CAD)W/WILLIAM BILAT IMPRESSION: Stable bilateral screening mammogram. OVERALL FINAL ASSESSMENT BI-RADS 2: BENIGN RECOMMENDATION: Routine annual follow-up in 1 Year A letter with findings and recommendations will be mailed to the patient. Reading Location: [facility]
== END | disposition home or self-care (01) ==
PROVIDERS: PCP Family Medicine; Referring Provider Obstetrics & Gynecology; Visit Provider Obstetrics & Gynecology
DX: Z12.31 Encounter for screening mammogram for malignant neoplasm of breast (principal)
CPT/HCPCS: 77063; 77067

== ENCOUNTER → 2025-03-12 | Outpatient (CLI) | payer BC, SELFPAY ==
--- NOTE | 2025-03-12 17:55 | CT_ITS ---
PROCEDURE: RIGHT EXTREMITY UPPER WITHOUT CONTRAST 03/12/2025 REASON FOR EXAM: RT ELBOW PAIN TECHNIQUE: Procedure Code: CTEUWO Modality: CT Procedure: EXTREMITY UPPER WITHOUT CONTRA CT of the right elbow without contrast. Coronal and Sagittal reconstructions were provided. One or more dose reduction techniques were used (e.g., Automated exposure control, adjustment of the mA and/or kV according to patient size, use of iterative reconstruction technique. RADIATION DOSE SUMMARY: CTDlvol: 24.58 mGy DLP: 425.39 mGycm COMPARISON: None. FINDINGS: Acute vertically oriented nondisplaced fracture involving the medial humeral epicondyle. No additional acute fracture or dislocation visualized. Alignment is anatomic. Relatively well preserved joint spaces. Traumatic elbow joint effusion, and mild generalized soft tissue edema about the elbow. CT/Extremity Upper without Contra IMPRESSION: Acute nondisplaced fracture involving the medial humeral epicondyle. Mild traumatic elbow joint effusion and generalized soft tissue edema. Reading Location: [id number]
== END | disposition home or self-care (01) ==
LOC: CT 17:43
PROVIDERS: PCP Family Medicine
DX: M25.521 Pain in right elbow (principal)
CPT/HCPCS: 73200